=== PATIENT | female | born 1970 | race Caucasian/White ===

== ENCOUNTER 2017-09-04 12:52 | Observation (INO) | payer OTHER ==
--- NOTE | 2017-09-04 13:41 | ED PDOC ---
Arrival/HPI - General Chief Complaint: Breast Problem Time Seen by Provider: 09/04/17 13:00 Historian: Patient - History of Present Illness Narrative History of Present Illness (Text): 09/04/17 13:34 A 47 year old female, whose past medical history includes breast cancer 15 years ago, treated with mastectomy and chemo/RT and later breast reconstruction with implants, and chronic lymphedema, sent into the emergency department by Dr. Crisostomo for right arm discomfort and skin changes on the breast for the past few days. Patient reports she noticed abnormal skin changes to her right breast at the same time. As per Dr. 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 Patient denies any fever, chills, nausea , vomiting, abdominal pain, chest pain, shortness of breath or any other complaints. PMD: Dr. Ca Time/Duration: Other (few days) Symptom Course: Unchanged Quality: Other Context: Other Past Medical History - Provider Review Nursing Documentation Reviewed: Yes - Infectious Disease Hx of Infectious Diseases: None - Tetanus Immunization Tetanus Immunization: Unknown - Cardiac Hx Cardiac Disorders: No - Pulmonary Hx Respiratory Disorders: No - Neurological Hx Paralysis: No - HEENT Hx HEENT Disorder: No - Renal Hx Renal Disorder: No - Endocrine/Metabolic Hx Endocrine Disorders: Yes Hx Hypothyroidism: Yes - Hematological/Oncological Hx Blood Disorders: Yes Hx Anemia: Yes Hx Blood Transfusions: No Hx Blood Transfusion Reaction: No Hx Cancer: Yes (breast) - Integumentary Hx Dermatological Disorder: Yes (CELLULITIS TO RIGHT ARM) - Musculoskeletal/Rheumatological Hx Musculoskeletal Disorders: No - Gastrointestinal Hx Gastrointestinal Disorders: No - Genitourinary/Gynecological Hx Genitourinary Disorders: Yes (RIGHT BREAST MASTECTOMY WITH BREAST RECONSTRUCTION) - Psychiatric Hx Psychophysiologic Disorder: Yes Hx Depression: Yes Hx Emotional Abuse: No Hx Physical Abuse: No Hx Substance Use: No - Surgical History Hx Mastectomy: Yes - Anesthesia Hx Anesthesia Reactions: No Hx Malignant Hyperthermia: No - Suicidal Assessment Feels Threatened In Home Enviroment: No Family/Social History - Physician Review Nursing Documentation Reviewed: Yes Family/Social History: No Known Family HX Smoking Status: Never Smoked Hx Alcohol Use: No Hx Substance Use: No Hx Substance Use Treatment: No Allergies/Home Meds Allergies/Adverse Reactions: Allergies No Known Allergies Allergy (Verified 09/04/17 13:06) Home Medications: Home Meds Medication Instructions Recorded Confirmed Unobtainable 09/04/17 09/04/17 Review of Systems - Physician Review All systems were reviewed & negative as marked: Yes - Review of Systems Constitutional: absent: Fevers, Night Sweats Respiratory: absent: SOB Cardiovascular: absent: Chest Pain Gastrointestinal: absent: Abdominal Pain, Nausea, Vomiting Musculoskeletal: Other (right arm discomfort) Skin: Other (abnormal skin changes to right breast) Physical Exam Vital Signs Reviewed: Yes Vital Signs Temp Pulse Resp BP Pulse Ox 09/04/17 16:16 68 18 131/78 100 09/04/17 15:38 71 18 133/87 100 09/04/17 13:07 98.5 F 83 16 105/84 98 Temperature: Afebrile Blood Pressure: Normal Pulse: Regular Respiratory Rate: Normal Appearance: Positive for: Well-Appearing, Non-Toxic, Comfortable Pain Distress: None Mental Status: Positive for: Alert and Oriented X 3 - Systems Exam Head: Present: Atraumatic, Normocephalic Pupils: Present: PERRL Conjunctiva: Present: Normal Mouth: Present: Moist Mucous Membranes Pharnyx: Present: Normal. No: ERYTHEMA, EXUDATE Neck: Present: Normal Range of Motion Respiratory/Chest: Present: Clear to Auscultation, Good Air Exchange. No: Respiratory Distress, Accessory Muscle Use Cardiovascular: Present: Regular Rate and Rhythm, Normal S1, S2. No: Murmurs Abdomen: Present: Normal Bowel Sounds. No: Tenderness, Distention, Peritoneal Signs Breast/Axillary: Present: Other (2 ulcerations to lateral aspect of right breast near axilla with warmth and erythma and mild necrotic appearance) Upper Extremity: Present: Edema (Chronic lymphedema), Normal ROM, NORMAL PULSES , Neurovascularly Intact. No: Cyanosis, Tenderness, Temperature Abnormalties Lower Extremity: Present: Normal Inspection. No: Edema Neurological: Present: GCS=15, CN II-XII Intact, Speech Normal Skin: Present: Warm, Dry, Normal Color. No: Rashes Psychiatric: Present: Alert, Oriented x 3, Normal Insight, Normal Concentration Medical Decision Making ED Course and Treatment: 09/04/17 13:34 Impression: A 47 year old female sent by Dr. Crisostomo for right arm discomfort and abnormal skin changes to right breast after mastectomy and breast reconstruction. Plan: -- Right duplex upper extremity ultrasound -- Chest xray -- EKG -- Labs -- Blood and Urine culture -- Urinalysis -- Reassess and disposition Progress Notes: 09/04/17 16:50 Patient with noted history with changes on breast as described; concerning for cellulitis and deeper infectious process - will start iv antibiotics and obtain surgical consult (spoke with ); case was discussed with Dr. Borges regarding plan. Spoke with Dr. Ca who said to admit to the hospitalist. Spoke with Dr. Schwartz for hospitalist admission. - Lab Interpretations Lab Results: 09/04/17 14:10 09/04/17 14:10 Lab Results 09/04/17 14:55: Urine Color Yellow, Urine Appearance Clear, Urine pH 7.0, Ur Specific [place] 1.015, Urine Protein Negative, Urine Glucose (UA) Negative, Urine Ketones Negative, Urine Blood Moderate H, Urine Nitrate Negative, Urine Bilirubin Negative, Urine Urobilinogen 0.2, Ur Leukocyte Esterase Negative, Urine RBC 2 - 5, Urine WBC 0 - 2, Ur Epithelial Cells 0 - 2, Urine Bacteria Few 09/04/17 14:10: Sodium 141, Potassium 4.2, Chloride 105, Carbon Dioxide 27, Anion Gap 13, BUN 19, Creatinine 0.8, Est GFR ( Amer) > 60, Est GFR (Non- Af Amer) > 60, Random Glucose 75, Calcium 9.9, Phosphorus 4.8 H, Magnesium 1.7, Total Bilirubin 0.6, AST 31, ALT 40, Alkaline Phosphatase 74, Total Protein 7.8 , Albumin 4.2, Globulin 3.6, Albumin/Globulin Ratio 1.2, Lipase 96 09/04/17 14:10: PT 11.2, INR 1.03, APTT 27.3 09/04/17 14:10: WBC 4.9, RBC 4.15, Hgb 12.5, Hct 37.1, MCV 89.4, MCH 30.1, MCHC 33.7, RDW 14.8 H, Plt Count 221, MPV 9.2, Gran % 42.6 L, Lymph % (Auto) 46.5 H, [place] % (Auto) 9.9 H, Eos % (Auto) 1.0 L, Baso % (Auto) 0.0, Gran # 2.07, Lymph # 2.3, [place] # 0.5, Eos # 0.1, Baso # 0.00 - RAD Interpretation Radiology Orders: 09/04/17 13:55 CHEST TWO VIEWS (PA/LAT) [RAD] Stat DUPLEX UPPER EXTRM VEIN RIGHT [US] Stat - EKG Interpretation EKG Interpretation (Text): 09/04/17 16:53 NSR @ 70; no ST/T changes; normal intervals; normal axis. Interpreted by ED Physician: Yes Type: 12 lead EKG - Medication Orders Current Medication Orders: Vancomycin HCl 1 gm/ Sodium (Chloride) 250 mls @ 133.333 mls/hr IV STAT STA PRN Reason: Protocol Stop: 09/04/17 16:46 Last Admin: 09/04/17 16:10 Dose: 133.333 mls/hr eMAR Start Stop Document 09/04/17 16:10 SF (Rec: 09/04/17 16:26 [id number] Intravenous Solution Start Date 09/04/17 Start Time 16:10 End Date 09/04/17 End time 18:03 Total Infusion Time 113 Discontinued Medications Piperacillin Sod/Tazobactam Sod (Zosyn 3.375 In Ns 100ml) 100 mls @ 200 mls/hr IVPB STAT STA PRN Reason: Protocol Stop: 09/04/17 15:23 Last Admin: 09/04/17 15:38 Dose: 200 mls/hr eMAR Start Stop Document 09/04/17 15:38 SF (Rec: 09/04/17 15:38 SF [id number]) Intravenous Solution Start Date 09/04/17 Start Time 15:38 End Date 09/04/17 End time 16:08 Total Infusion Time 30 - Scribe Statement The provider has reviewed the documentation as recorded by the Scribe Gale Whitman Provider Scribe Attestation: All medical record entries made by the Scribe were at my direction and personally dictated by me. I have reviewed the chart and agree that the record accurately reflects my personal performance of the history, physical exam, medical decision making, and the department course for this patient. I have also personally directed, reviewed, and agree with the discharge instructions and disposition. Disposition/Present on Arrival - Present on Arrival Any Indicators Present on Arrival: No History of DVT/PE: No History of Uncontrolled Diabetes: No Urinary Catheter: No History of Decub. Ulcer: No History Surgical Site Infection Following: None - Disposition Have Diagnosis and Disposition been Completed?: Yes Diagnosis: Cellulitis Disposition: HOSPITALIZED Disposition Time: 15:35 Patient Plan: Admission Patient Problems: Current Active Problems Problem Status Onset Cellulitis Acute Condition: FAIR
[2017-09-04 14:53] LABS: EOS # 0.1 (0.0-0.7); GRAN # 2.07 (1.4-6.5); GRAN % 42.6 % (50.0-68.0); HEMATOCRIT 37.1 % (36.0-48.0); LYMPH # 2.3 (1.2-3.4); LYMPH % 46.5 % (22.0-35.0); MEAN CELL VOLUME 89.4 fl (80.0-105.0); MEAN CORPUSCULAR HEMOGLOBIN 30.1 pg (25.0-35.0); MEAN CORPUSCULAR HGB CONC 33.7 g/dl (31.0-37.0); MEAN PLATELET VOLUME 9.2 fl (7.0-11.0); MONO # 0.5 (0.1-0.6); MONO % 9.9 % (1.0-6.0); RED CELL DISTRIBUTION WIDTH 14.8 % (11.5-14.5); WHITE BLOOD COUNT 4.9 10^3/ul (4.5-11.0)
[2017-09-04] MEDS ORDERED: Piperacillin/Tazobact 3.375 gm 100 ML IVPB STA (14:54)
[2017-09-04 15:04] LABS: INR 1.03 (0.93-1.08); PARTIAL THROMBOPLASTIN TIME 27.3 Seconds (25.1-36.5)
[2017-09-04 15:19] LABS: URINE APPEARANCE CLEAR (CLEAR); URINE BILIRUBIN NEGATIVE (NEGATIVE); URINE BLOOD MODERATE (NEGATIVE); URINE COLOR YELLOW (YELLOW); URINE GLUCOSE (UA) NEGATIVE (NEGATIVE); URINE KETONE NEGATIVE (NEGATIVE); URINE LEUKOCYTE ESTERASE NEGATIVE Leu/uL (NEGATIVE); URINE PROTEIN NEGATIVE mg/dL (<30 mg/dL); URINE UROBILINOGEN 0.2 E.U./dL (<1 E.U./dL)
[2017-09-04 15:23] LABS: URINE BACTERIA FEW (NEG); URINE EPITHELIAL CELLS 0 - 2 /hpf (0-5); URINE WBC 0 - 2 /hpf (0-6)
[2017-09-04 15:25] LABS: ALB/GLOB RATIO 1.2 (1.1-1.8); ALKALINE PHOSPHATASE 74 U/L (38-126); ALT/SGPT 40 U/L (7-56); AST/SGOT 31 U/L (14-36); BILIRUBIN,TOTAL 0.6 mg/dL (0.2-1.3); BLOOD UREA NITROGEN 19 mg/dL (7-21); CALCIUM 9.9 mg/dL (8.4-10.5); CARBON DIOXIDE 27 mmol/L (21-33); CHLORIDE 105 mmol/L (98-107); GFR AFRICAN-AMERICAN > 60; GLUCOSE,RANDOM 75 mg/dL (70-110); LIPASE 96 U/L (23-300); MAGNESIUM 1.7 mg/dL (1.7-2.2); PHOSPHOROUS 4.8 mg/dL (2.5-4.5); POTASSIUM 4.2 mmol/L (3.6-5.0); SODIUM 141 mmol/L (132-148); TOTAL PROTEIN 7.8 g/dL (5.8-8.3)
--- NOTE | 2017-09-04 16:23 | US ---
PROCEDURE: Right upper extremity venous US CLINICAL HISTORY: Arm pain and swelling Evaluate for deep venous thrombosis. PHYSICIAN(S): Osmel Mcneal M.D FINDINGS: The visualized rightinternal jugular vein is sonographically normal and compressible. No evidence of obstruction or thrombus is seen. The visualized segments of the right subclavian vein are patent with normal waveforms. No sonographic evidence of obstruction or thrombosis is seen. The visualized deep venous system of the proximal right upper extremity is sonographically normal and compressible. IMPRESSION: 1. No sonographic evidence for deep venous thrombosis in the visualized segments of the right upper extremity.
--- NOTE | 2017-09-04 16:36 | RAD ---
HISTORY: h/o breast ca; R breast lesion COMPARISON: 07/01/2016 TECHNIQUE: Chest PA and lateral FINDINGS: LUNGS: No active pulmonary disease. PLEURA: No significant pleural effusion identified. No pneumothorax apparent. CARDIOVASCULAR: Normal. OSSEOUS STRUCTURES: Minimal thoracic spondylosis VISUALIZED UPPER ABDOMEN: Normal. OTHER FINDINGS: None. IMPRESSION: No interval cardiopulmonary pathology appreciated
--- NOTE | 2017-09-04 17:34 | CP.PCM.CON ---
History of Present Illness - History of Present Illness History of Present Illness: PGY1 General Surgery Consult Note for Dr. Lafleur Patient is a 47 year old female with a past medical history of breast cancer 15 years ago. Patient was treated with a mastectomy and chemo/RT. She has breast reconstruction surgery with implants in 2011, and now has chronic lymphedema of her right arm post reconstruction. Patient was instructed to come to the emergency department by Dr. Crisostomo due to skin changes located on her right breast. Patient started to notice pain and skin irritation on the lateral portion of her right breast two days ago. Patient reports mild discomfort of her right arm, but this was stated to be chronic as a result of her reconstruction surgery in 2011. As per ED documentation, the patient's breast cancer was Ductal Carcinoma grade T3N2M0 ER/IN negative, HER-2 negative. Patient denies any fevers, chills, nausea, vomiting, abdominal pain, chest pain , shortness of breath, weight loss, decreased appetite or night sweats. PMD: Dr. Ca Heme/Onc: Dr. Crisostomo PMH: Breast Cancer PSH: R Breast Mastectomy (2003), R Breast Reconstruction with implants (2012) Family: non-contributory Social: Denies alcohol, tobacco, illicit drug use Allergies: NKDA Review of Systems - Constitutional Constitutional: Fatigue (2 days). absent: Anorexia, Chills, Excessive Sweating , Fever, Headache, Night Sweats - EENT Eyes: absent: Change in Vision Nose/Mouth/Throat: absent: Nasal Congestion, Nasal Discharge - Breasts Breasts: Pain, Skin Changes (erythema). absent: Mass, Nipple Discharge - Cardiovascular Cardiovascular: absent: Chest Pain, Edema, Lightheadedness, Palpitations, Pedal Edema, Radiating Pain - Respiratory Respiratory: absent: Cough, Wheezing - Gastrointestinal Gastrointestinal: absent: Abdominal Pain, Constipation, Diarrhea, Nausea, Vomiting - Menstruation Additional comments: LMP: 2-3 months ago. Has not been having regular menses for approximately one year. - Musculoskeletal Musculoskeletal: As Per HPI. absent: Numbness, Stiffness, Tingling Additional comments: Chronic right arm lymphedema - Integumentary Integumentary: As Per HPI - Psychiatric Psychiatric: Depression (worried that her breast cancer has returned.) - Endocrine Endocrine: Fatigue. absent: Cold Intolorance, Excessive Sweating, Heat Intolorance, Palpitations, Polyphagia, Polyuria Past Patient History - Infectious Disease Hx of Infectious Diseases: None - Tetanus Immunizations Tetanus Immunization: Unknown - Past Social History Smoking Status: Never Smoked - CARDIAC Hx Cardiac Disorders: No - PULMONARY Hx Respiratory Disorders: No - NEUROLOGICAL Hx Paralysis: No - HEENT Hx HEENT Problems: No - RENAL Hx Chronic Kidney Disease: No - ENDOCRINE/METABOLIC Hx Endocrine Disorders: Yes Hx Hypothyroidism: Yes - HEMATOLOGICAL/ONCOLOGICAL Hx Blood Disorders: Yes Hx Anemia: Yes Hx Blood Transfusions: No Hx Blood Transfusion Reaction: No Hx Cancer: Yes (breast) - INTEGUMENTARY Hx Dermatological Problems: Yes (CELLULITIS TO RIGHT ARM) - MUSCULOSKELETAL/RHEUMATOLOGICAL Hx Musculoskeletal Disorders: No - GASTROINTESTINAL Hx Gastrointestinal Disorders: No - GENITOURINARY/GYNECOLOGICAL Hx Genitourinary Disorders: Yes (RIGHT BREAST MASTECTOMY WITH BREAST RECONSTRUCTION) - PSYCHIATRIC Hx Psychophysiologic Disorder: Yes Hx Depression: Yes Hx Emotional Abuse: No Hx Physical Abuse: No Hx Substance Use: No - SURGICAL HISTORY Hx Mastectomy: Yes - ANESTHESIA Hx Anesthesia Reactions: No Hx Malignant Hyperthermia: No Meds Allergies/Adverse Reactions: Allergies Allergy/AdvReac Type Severity Reaction Status Date / Time No Known Allergies Allergy Verified 09/04/17 13:06 Physical Exam - Constitutional Appears: No Acute Distress - Head Exam Head Exam: ATRAUMATIC, NORMOCEPHALIC - Eye Exam Eye Exam: Normal appearance. absent: Scleral icterus - ENT Exam ENT Exam: Mucous Membranes Moist - Neck Exam Neck exam: Positive for: Full Rom, Normal Inspection. Negative for: Meningismus , Tenderness - Respiratory Exam Respiratory Exam: Clear to Auscultation Bilateral, NORMAL BREATHING PATTERN. absent: Accessory Muscle Use, Rales, Wheezes, Respiratory Distress - Cardiovascular Exam Cardiovascular Exam: REGULAR RHYTHM, +S1, +S2 - GI/Abdominal Exam GI & Abdominal Exam: Normal Bowel Sounds, Soft. absent: Distended, Firm, Guarding, Rigid, Tenderness - Extremities Exam Extremities exam: Positive for: normal capillary refill, pedal pulses present. Negative for: calf tenderness, tenderness Additional comments: Right arm lymphedema (chronic) - Neurological Exam Neurological exam: Alert, CN II-XII Intact, Oriented x3 - Psychiatric Exam Psychiatric exam: Depressed (worried that her breast cancer has returned. ), Normal Affect - Skin Skin Exam: Dry, Warm Additional comments: Lateral portion of the right breast, inferior to the axilla - 2 ulcerations approximately 2.5cm x 1cm with eschar appearing centers and erythematous boarders. <0.5cm boarder of induration surrounding each lesion. No fluctuance or drainage apparent. Results - Vital Signs Recent Vital Signs: Last Vital Signs Temp 98.5 F 09/04/17 13:07 Pulse 68 09/04/17 16:16 Resp 18 09/04/17 16:16 BP 131/78 09/04/17 16:16 Pulse Ox 100 09/04/17 16:16 - Labs Result Diagrams: 09/04/17 14:10 09/04/17 14:10 Assessment & Plan - Assessment and Plan (Free Text) Assessment: 47 year old female with PMH of R breast cancer presenting with cellulitis of lateral aspect of right breast. Plan: - continue antibiotics - f/u blood cultures - medical management per primary - further recs per Dr. Lafleur Will discuss with Dr. Miquel Castellanos [place] PGY1
[2017-09-04] MEDS ORDERED: DiphenhydrAMINE 50 mg/ml Inj IVP STA (18:11)
[2017-09-04 19:36] VITALS: BMI 28.8
[2017-09-04] MEDS: Vancomycin 1gm in NS 250ml 1 GM/250 ML BAG IVPB SCH (20:34)
--- NOTE | 2017-09-04 20:57 | CP.PCM.HP ---
<Fred Tran - Last Filed: 09/04/17 21:14> History of Present Illness - History of Present Illness History of Present Illness: CC: Right arm discomfort and right breast skin change HPI: Patient is a 47 year old female with past medical history of breast cancer 15 years ago status post mastectomy and chemo/RT with later breast reconstruction with implants and chronic lymphedema of her right upper extremity who was sent to the emergency department by her heme/onc physician Dr. Crisostomo for right arm discomfort and right breast skin changes suspicious for cellulitis. Patient reports developing redness about 2 days prior to presentation. Patient denies fever, chills, discharge from the nipple or wound site. Patient denies any pain with palpation of the site. Patient denies numbness or loss of function in her left upper extremity. Patient denies chest pain, shortness of breath, abdominal discomfort, nausea, vomiting, or change in bowel. PMH: GI ulcers, RA, Hypothyroid, Iron deficiency anemia PSH: R Breast Mastectomy (2003), R Breast Reconstruction with implants (2012) SOChx: Tobacco: denies, ETOH: denies, ID: denies All: Vancomycin Meds: See JAN PMD: Dr. Ca Heme/Onc: Dr. Crisostomo Present on Admission - Present on Admission Any Indicators Present on Admission: No Review of Systems - Constitutional Constitutional: absent: Chills, Fever - EENT Eyes: absent: Blurred Vision, Change in Vision Ears: absent: Ear Discharge, Ear Pain Nose/Mouth/Throat: absent: Nasal Congestion, Nasal Discharge - Breasts Breasts: Pain, Skin Changes (erythema of right breast). absent: Nipple Discharge - Cardiovascular Cardiovascular: absent: Chest Pain, Chest Pain at Rest, Dyspnea - Respiratory Respiratory: absent: Cough, Dyspnea - Gastrointestinal Gastrointestinal: absent: Abdominal Pain, Bloating, Nausea, Vomiting - Genitourinary Genitourinary: absent: Difficulty Urinating, Dysuria - Menstruation Additional comments: LMP 2-3 months. Irregular menses reported for past year - Musculoskeletal Musculoskeletal: absent: Arthralgias, Numbness, Stiffness - Integumentary Additional comments: as per HPI - Psychiatric Psychiatric: absent: Anxiety, Depression - Endocrine Endocrine: absent: Flushing, Heat Intolorance, Palpitations - Hematologic/Lymphatic Hematologic: absent: Easy Bleeding, Easy Bruising Past Patient History - Infectious Disease Hx of Infectious Diseases: None - Tetanus Immunizations Tetanus Immunization: Unknown - Past Social History Smoking Status: Never Smoked Alcohol: None Drugs: Denies - CARDIAC Hx Cardiac Disorders: No Hx Angina: No Hx Cardia Arrhythmia: No Hx Circulatory Problems: No Hx Congestive Heart Failure: No Hx Heart Murmur: No Hx Heart Transplant: No Hx Hypercholesterolemia: No Hx Hypertension: No Hx Internal Defibrillator: No Hx Mitral Valve Prolapse: No Hx Pacemaker: No Hx Peripheral Edema: No Hx Peripheral Vascular Disease: No - PULMONARY Hx Respiratory Disorders: No Hx Asthma: No Hx Bronchitis: No Hx Chronic Obstructive Pulmonary Disease (COPD): No Hx Emphysema: No Hx Pneumonia: No Hx Respiratory Aspiration: No Hx Respiratory Tract Infection: No Hx Sleep Apnea: No Hx Tuberculosis: No - NEUROLOGICAL Hx Neurological Disorder: No Hx Alzheimer's Disease: No HX Cerebrovascular Accident: No Hx Dementia: No Hx Dizziness: No Hx Meningitis: No Hx Migraine: No Hx Parkinson's Disease: No Hx Seizures: No Hx Transient Ischemic Attacks (TIA): No - HEENT Hx HEENT Problems: No Hx Blind: No Hx Cataracts: No Hx Deafness: No Hx Difficulty Chewing: No Hx Epistaxis: No Hx Glaucoma: No Hx Macular Degeneration: No - RENAL Hx Chronic Kidney Disease: No Hx Dialysis: No Hx Kidney Stones: No Hx Neurogenic Bladder: No Hx Pyelonephritis: No Hx Renal (Kidney) Cancer: No Hx Renal Failure: No - ENDOCRINE/METABOLIC Hx Endocrine Disorders: No Hx Adrenal Cancer: No Hx Diabetes Insipidus: No Hx Diabetes Mellitus Type 1: No Hx Diabetes Mellitus Type 2: No Hx Hyperthyroidism: No Hx Hypothyroidism: No Hx Systemic Lupus Erythematosus: No - HEMATOLOGICAL/ONCOLOGICAL Hx Blood Disorders: No Hx AIDS: No Hx Anemia: No Hx Cancer: No Hx Chemotherapy: Yes Hx Cirrhosis: No Hx Hemophilia: No Hx Hepatitis A: No Hx Hepatitis B: No Hx Hepatitis C: No Hx Human Immunodeficiency Virus (HIV): No Hx Metastesis: No Hx Shingles: No Hx Sickle Cell Disease: No Hx Unexplained Bleeding: No - INTEGUMENTARY Hx Dermatological Problems: No Hx Basil Cell: No Hx Eczema: No Hx Melanoma: No Hx Psoriasis: No Hx Squamous Cell: No - MUSCULOSKELETAL/RHEUMATOLOGICAL Hx Musculoskeletal Disorders: No Hx Arthritis: Yes Hx Back Pain: No Hx Degenerative Joint Disease: No Hx Falls: No Hx Fractures: No Hx Gout: No Hx Herniated Disk: No Hx Myasthenia Gravis: No Hx Osteoarthritis: No Hx Osteomyelitis: No Hx Osteoporosis: No Hx Rhabdomyolysis: No Hx Spinal Stenosis: No Hx Unsteady Gait: No - GASTROINTESTINAL Hx Gastrointestinal Disorders: No Hx Colostomy: No Hx Crohn's Disease: No Hx Diverticulitis: No Hx Gall Bladder Disease: No Hx Gastroesophageal Reflux: No Hx Ileostomy: No Hx Liver Failure: No Hx Pancreatitis: No HX Swallowing Problems: No Hx Ulcer: No - GENITOURINARY/GYNECOLOGICAL Hx Genitourinary Disorders: No Hx Hematuria: No Hx Incontinence: No Hx Sexually Transmitted Disorders: No Hx Urinary Tract Infection: No - PSYCHIATRIC Hx Psychophysiologic Disorder: Yes Hx Anxiety: No Hx Bipolar Disorder: No Hx Depression: Yes Hx Emotional Abuse: No Hx Hallucinations: No Hx Panic Symptoms: No Hx Paranoia: No Hx Post Traumatic Stress Disorder: No Hx Psychosis: No Hx Physical Abuse: No Hx Schizophrenia: No Hx Sexual Abuse: No - SURGICAL HISTORY Hx Surgeries: Yes Hx Amputation: No Hx Appendectomy: No Hx Cardiac Catheterization: No Hx Cholecystectomy: No Hx Coronary Stent: No Hx Gastric Bypass Surgery: No Hx Hysterectomy: No Hx Joint Replacement: No Hx Kidney Transplant: No Hx Liver Transplant: Yes Hx Mastectomy: No Hx Musculoskeletal Surgery: No Hx Open Heart Surgery: No Hx Orthopedic Surgery: No Hx Splenectomy: No Hx Valve Replacement: No - ANESTHESIA Hx Anesthesia Reactions: No Hx Malignant Hyperthermia: No Meds Allergies/Adverse Reactions: Allergies Allergy/AdvReac Type Severity Reaction Status Date / Time vancomycin AdvReac Intermediate ITCHING Verified 09/04/17 18:28 Physical Exam - Constitutional Appears: Well, No Acute Distress - Head Exam Head Exam: ATRAUMATIC, NORMAL INSPECTION, NORMOCEPHALIC - Eye Exam Eye Exam: EOMI, PERRL - ENT Exam ENT Exam: Mucous Membranes Moist - Neck Exam Neck exam: Positive for: Full Rom, Normal Inspection - Respiratory Exam Respiratory Exam: Clear to Auscultation Bilateral, NORMAL BREATHING PATTERN - Cardiovascular Exam Cardiovascular Exam: REGULAR RHYTHM, +S1, +S2. absent: Systolic Murmur - GI/Abdominal Exam GI & Abdominal Exam: Normal Bowel Sounds, Soft - Extremities Exam Additional comments: right upper extremity with lymphedema, noted to be chronic - Back Exam Back exam: NORMAL INSPECTION - Neurological Exam Neurological exam: Alert, Normal Gait, Oriented x3 Additional comments: Motor and sensory grossly intact - Psychiatric Exam Psychiatric exam: Normal Affect, Normal Mood - Skin Additional comments: Lateral right breast with ulceration noted to be 1 inch by 2 cm with eschar center and erythematous borders, no significant induration, not warm to touch without discharge Results - Vital Signs Recent Vital Signs: Last Vital Signs Temp 98.4 F 09/04/17 18:58 Pulse 78 09/04/17 19:05 Resp 22 09/04/17 19:05 BP 112/80 09/04/17 19:05 Pulse Ox 99 09/04/17 18:57 - Labs Result Diagrams: 09/04/17 14:10 09/04/17 14:10 Assessment & Plan - Assessment and Plan (Free Text) Assessment: Patient is a 47 year old female with past medical history of breast cancer 15 years ago status post mastectomy and chemo/RT with later breast reconstruction with implants and chronic lymphedema of her right upper extremity who presents with new lesion of her right lateral breast suspicious for cellulitis Plan: 1. Suspected Cellulitis of Right breast - IV antibiotics with Vancomycin 1 gm IV Q12, Zosyn 3.375 mg Q6H - Blood culture, Wound culture - Procal - general surgery consult, appreciate recs - ID consult, appreciate recs 2. Hypothyroid - Continue home meds - Monitor TSH DVT/GI PPx - Protonix - Heparin Case and plan discussed with attending - Date & Time Date: 09/04/17 Time: 21:09 <Jasmine Schwartz - Last Filed: 09/05/17 17:42> Results - Vital Signs Recent Vital Signs: Last Vital Signs Temp 98 F 09/05/17 16:00 Pulse 56 L 09/05/17 16:00 Resp 20 09/05/17 16:00 BP 132/76 09/05/17 16:00 Pulse Ox 99 09/05/17 16:00 - Labs Result Diagrams: 09/04/17 14:10 09/05/17 06:41 Labs: Laboratory Results - last 24 hr 09/05/17 09/05/17 09/05/17 06:41 06:41 06:41 APTT 28.1 Sodium 144 Potassium 3.9 Chloride 108 H Carbon Dioxide 28 Anion Gap 12 BUN 16 Creatinine 0.8 Est GFR ( Amer) > 60 Est GFR (Non-Af Amer) > 60 Random Glucose 99 Calcium 9.0 Total Bilirubin 0.4 AST 27 ALT 38 Alkaline Phosphatase 63 Total Protein 6.5 Albumin 3.4 Globulin 3.1 Albumin/Globulin Ratio 1.1 Procalcitonin < 0.05 L TSH 3rd Generation 09/05/17 06:41 APTT Sodium Potassium Chloride Carbon Dioxide Anion Gap BUN Creatinine Est GFR ( Amer) Est GFR (Non-Af Amer) Random Glucose Calcium Total Bilirubin AST ALT Alkaline Phosphatase Total Protein Albumin Globulin Albumin/Globulin Ratio Procalcitonin TSH 3rd Generation 0.93 Attending/Attestation - Attestation I have personally seen and examined this patient.: Yes I have fully participated in the care of the patient.: Yes I have reviewed all pertinent clinical information: Yes Notes (Text): 09/05/17 17:41 Patient was seen and examined with medical doctor md. Agreed with resident assessment and plan. 47 year old female with PMH of R breast cancer presenting with cellulitis of lateral aspect of right breast, no evidence of abscess on physical examination. We will start on IV antibiotics and will follow up surgery and ID recommendation. Management plan was discussed in detail with patient Education was provided.
[2017-09-04] MEDS: Piperacillin/Tazobact 3.375 gm 100 ML IVPB SCH (21:00)
--- NOTE | 2017-09-04 23:38 | CON ---
DATE: 09/04/2017 This is [facility] consult on the medical floor. For Dr. Crisostomo. CHIEF COMPLAINT: Right breast axillary pain. HISTORY OF PRESENT ILLNESS: The patient is a 47-year-old female seen in Dr. Crisostomo's office earlier today with severe pain for approximately 2 days' duration to the right breast/axilla wiith the patient known to have had breast reconstruction with implants for cancer of the breast dated from 2003 in [place]. She had reconstruction with a TRAM flap in 2012 after evaluation here in the [place]. With this, the patient had chemotherapy in 2003, tamoxifen treatment 5 years. She is now admitted by the Emergency Room as per Dr. Crisostomo and Dr. Vang for evaluation of cellulitis that she has, 2 eschar type lesions to the right lateral breast as per Dr. Crisostomo with increased erythema and tenderness to palpation in that area. ALLERGIES: No known allergies, however, somebody has vancomycin as an allergy, we will clarify this as the patient is receiving vancomycin at present. MEDICATIONS: Her medications are from [place] and from [place] and she takes them as per Dr. Ca include BuSpar, iron tablet, Synthroid, folic acid, Prozac, Colace, Tylenol with medications including Daflon, Fluanxol, Folicron, Kemadrin, Salipax with an injection with a long-acting antipsychotic medication as per her family members. PAST MEDICAL HISTORY: Significant for breast cancer status post mastectomy with chemotherapy and radiation, also chronic lymphedema of the right upper extremity, depression, obesity, anemia and hypothyroidism. Treatment for cellulitis of the right arm in 2016, was referred to those records. FAMILY HISTORY AND SOCIAL HISTORY: Nonsmoker, nonethanolic. She lives with her and children taking medications from [place] and [place] as above. REVIEW OF SYSTEMS: A 12-point review of systems was done, essentially negative except as reported in the above HPI. PHYSICAL EXAMINATION VITAL SIGNS: Temperature was 98.4, pulse of 78, respirations 22, blood pressure 112/80, pulse oximetry 99%. HEENT: Unremarkable. GENERAL: She has a depressed affect. NECK: Supple. HEART: Regular rate. LUNGS: Clear. ABDOMEN: Soft, nontender. EXTREMITIES: +2 to 3 edema of the right upper extremity with again 2 eschar-type lesions to the right lateral breast as per Dr. Crisostomo. NEUROLOGIC: Awake and alert. SKIN: Warm and dry except as above. LABORATORY DATA: The patient had Doppler ultrasound of the right upper extremity, it was negative. The patient's labs were done. White blood cell count of 4.9, hemoglobin 12.5, hematocrit of 37.1 and platelet count 321,000. Chem metabolic panel within normal limits except for phosphorus of 4.8. INR of 1.03. Urine showed moderate amount of blood, otherwise negative. The patient had a chest x-ray done, it was read as no interval cardiopulmonary pathology appreciated. ASSESSMENT: Cellulitis versus implant necrosis, lymphedema of the right upper extremity, history of breast cancer, depression, breast cancer which was T3N2M0, ER/WA negative, HER2 negative ductal carcinoma; also hypothyroidism, history of anemia, obesity. PLAN: The plan for this patient after conversation with Dr. Crisostomo is to follow up as per Dr. Ca, continue present medical regimen with Tylenol or tramadol for pain. A consult with Dr. James, Infectious Disease bridal sales consultant; consult with surgical evaluation with mammogram and ultrasound of the breast bilateral. We will do a TSH in the morning and monitor the patient clinically and with labs. Prognosis for this patient is guarded. We will ask physiotherapy for treatment of his right upper extremity lymphedema and evaluation for lymphedema sleeve. Collin Borges MD
[2017-09-05] MEDS: Piperacillin/Tazobact 3.375 gm 100 ML IVPB SCH (02:00)
[2017-09-05 07:06] LABS: ALB/GLOB RATIO 1.1 (1.1-1.8); ALKALINE PHOSPHATASE 63 U/L (38-126); ALT/SGPT 38 U/L (7-56); AST/SGOT 27 U/L (14-36); BILIRUBIN,TOTAL 0.4 mg/dL (0.2-1.3); BLOOD UREA NITROGEN 16 mg/dL (7-21); CARBON DIOXIDE 28 mmol/L (21-33); CHLORIDE 108 mmol/L (98-107); GFR AFRICAN-AMERICAN > 60; GLUCOSE,RANDOM 99 mg/dL (70-110); POTASSIUM 3.9 mmol/L (3.6-5.0); SODIUM 144 mmol/L (132-148); TOTAL PROTEIN 6.5 g/dL (5.8-8.3)
--- NOTE | 2017-09-05 09:40 | CP.PCM.PN ---
Subjective - Date & Time of Evaluation Date of Evaluation: 09/05/17 Time of Evaluation: 09:37 - Subjective Subjective: Heme/Onc Progress Note for Charlene Cunningham PGY2 Patient seen and examined at bedside. As per nursing staff there were no acute overnight events. Upon examination, patient was resting comfortably in bed. She reports she has some mild pain in her R breast, but denies fever/chills, abdominal pain, numbness/tingling, nausea/vomiting/diarrhea, chest pain or shortness of breath. She does complain of some constipation. Objective - Vital Signs/Intake and Output Vital Signs (last 24 hours): Temp Pulse Resp BP Pulse Ox 98.0 F 72 20 105/58 L 95 09/05/17 07:30 09/05/17 07:30 09/05/17 07:30 09/05/17 07:30 09/05/17 07:30 Intake and Output: 09/05/17 09/05/17 06:59 18:59 Intake Total 240 Output Total 1 Balance 239 - Medications Medications: Current Medications Acetaminophen (Tylenol 325mg Tab) 650 mg PO Q6H PRN PRN Reason: Fever >100.4 F Amantadine HCl (Amantadine 100 Mg Cap) 100 mg PO DAILY DAT Buspirone HCl (Buspar) 10 mg PO DAILY DAT PRN Reason: Protocol Calcium Carbonate (Caltrate) 600 mg PO DAILY DAT Famotidine (Pepcid) 20 mg PO BID DAT Last Admin: 09/04/17 18:20 Dose: 20 mg Fluoxetine HCl (Prozac) 40 mg PO DAILY DAT Folic Acid (Folic Acid) 1 mg PO DAILY DAT Vancomycin HCl (Vancomycin 1gm) 1 gm in 250 mls @ 167 mls/hr IVPB Q12H DAT PRN Reason: Protocol Last Admin: 09/04/17 20:34 Dose: Not Given Piperacillin Sod/Tazobactam Sod (Zosyn 3.375 In Ns 100ml) 100 mls @ 200 mls/hr IVPB Q6 DAT PRN Reason: Protocol Stop: 09/14/17 12:01 Levothyroxine Sodium (Synthroid) 150 mcg PO 0600 DAT Polyethylene Glycol (Miralax) 17 gm PO DAILY DAT Polysaccharide Iron Complex (Ferrex-150) 150 mg PO DAILY DAT Tramadol HCl (Ultram) 50 mg PO TID PRN PRN Reason: Pain, moderate (4-7) - Labs Labs: 09/05/17 06:41 PT 11.2 SECONDS (9.4-12.5) 09/04/17 14:10 INR 1.03 (0.93-1.08) 09/04/17 14:10 APTT 28.1 Seconds (25.1-36.5) 09/05/17 06:41 - Constitutional Appears: No Acute Distress - Head Exam Head Exam: ATRAUMATIC, NORMAL INSPECTION, NORMOCEPHALIC - Eye Exam Eye Exam: Normal appearance, PERRL Pupil Exam: NORMAL ACCOMODATION, PERRL - ENT Exam ENT Exam: Mucous Membranes Moist - Respiratory Exam Respiratory Exam: Clear to Ausculation Bilateral, NORMAL BREATHING PATTERN. absent: Rales, Rhonchi, Wheezes - Cardiovascular Exam Cardiovascular Exam: REGULAR RHYTHM, +S1, +S2. absent: Gallop, Rubs, Murmur - GI/Abdominal Exam GI & Abdominal Exam: Soft, Normal Bowel Sounds. absent: Rigid, Tenderness, Mass , Rebound - Extremities Exam Extremities Exam: Normal Inspection. absent: Calf Tenderness, Pedal Edema - Neurological Exam Neurological Exam: Alert, Awake, CN II-XII Intact, Oriented x3 - Psychiatric Exam Psychiatric exam: Normal Affect, Normal Mood - Skin Skin Exam: Warm Additional comments: on R lateral breast, 2 lesions (1x2cm and 1x0.5 cm with mild surrounding erythema and eschar) warm to touch- no drainage. Assessment and Plan - Assessment and Plan (Free Text) Assessment: This is a 47yo female with past medical history of anemia, hypothyroidism, depression/anxiety, breast ductal carcinoma (ND/ER/Her-2 neg) T3N2M0 s/p mastectomy and reconstruction who was admitted for lesions on her R breast. These lesions can be cellulitis versus pressure ulcer versus necrosis. Lesion is most likely pressure ulcer from the increase size in the side of the R breast implant that presses on her arm. Plan: - ID Consulted- Pt on Zosyn and has allergy to vancomycin - Surgery Consulted - will speak to Dr. Lafleur about recommendations about guidelines and if patient will need evaluation by plastic surgeon. - Patient has poor follow up - Spoke with surgery who said patient may be able to follow up with Dr. Zimmerman in [place] who may be able to see the patient due to insurance issues for possible reconstruction of the breast - Continue Miralax for constipation - Continue pain control - Patient will follow up with Dr. Crisostomo in his office upon discharge Case seen, discussed and reviewed with Dr. Crisostomo. Charlene Buckner PGY2.
[2017-09-05] MEDS: POLYETHYLENE GLYCOL 3350 17 GM/Dose PACKET PO SCH (10:12)
[2017-09-05] MEDS: Iron Complex Polysacch 150mg Cap PO SCH (10:12)
[2017-09-05] MEDS: Levothyroxine 150 MCG TAB PO SCH (10:18)
[2017-09-05] MEDS: Vancomycin 1gm in NS 250ml 1 GM/250 ML BAG IVPB SCH (10:19)
[2017-09-05] MEDS ORDERED: Ceftaroline 600 MG in Sodium Chloride 0.9% 100 ML IVPB SCH (11:21)
--- NOTE | 2017-09-05 11:38 | CP.PCM.PN ---
Subjective - Date & Time of Evaluation Date of Evaluation: 09/05/17 Time of Evaluation: 11:34 - Subjective Subjective: General Surgery Progress Note for Dr. Lafleur This patient was seen and examined this AM at bedside. No acute events overnight. Patient reports no change in her pain on her breast lesion. No fevers , chills, chest pain SOB nausea vomiting or diarrhea. Objective - Vital Signs/Intake and Output Vital Signs (last 24 hours): Temp Pulse Resp BP Pulse Ox 98.0 F 72 20 105/58 L 95 09/05/17 07:30 09/05/17 07:30 09/05/17 07:30 09/05/17 07:30 09/05/17 07:30 Intake and Output: 09/05/17 09/05/17 06:59 18:59 Intake Total 240 Output Total 1 Balance 239 - Medications Medications: Current Medications Acetaminophen (Tylenol 325mg Tab) 650 mg PO Q6H PRN PRN Reason: Fever >100.4 F Amantadine HCl (Amantadine 100 Mg Cap) 100 mg PO DAILY [facility] Last Admin: 09/05/17 10:12 Dose: 100 mg Buspirone HCl (Buspar) 10 mg PO DAILY [facility] PRN Reason: Protocol Last Admin: 09/05/17 10:12 Dose: 10 mg Calcium Carbonate (Caltrate) 600 mg PO DAILY [facility] Last Admin: 09/05/17 10:12 Dose: 600 mg Famotidine (Pepcid) 20 mg PO BID DAT Last Admin: 09/05/17 10:12 Dose: 20 mg Fluoxetine HCl (Prozac) 40 mg PO DAILY DAT Last Admin: 09/05/17 10:12 Dose: 40 mg Folic Acid (Folic Acid) 1 mg PO DAILY [facility] Last Admin: 09/05/17 10:12 Dose: 1 mg Ceftaroline Fosamil 600 mg/ (Sodium Chloride) 100 mls @ 100 mls/hr IVPB Q12 DAT PRN Reason: Protocol Stop: 09/14/17 11:22 Levothyroxine Sodium (Synthroid) 150 mcg PO 0600 DAT Last Admin: 09/05/17 10:18 Dose: 150 mcg Polyethylene Glycol (Miralax) 17 gm PO DAILY DAT Last Admin: 09/05/17 10:12 Dose: 17 gm Polysaccharide Iron Complex (Ferrex-150) 150 mg PO DAILY DAT Last Admin: 09/05/17 10:12 Dose: 150 mg Tramadol HCl (Ultram) 50 mg PO TID PRN PRN Reason: Pain, moderate (4-7) - Labs Labs: 09/05/17 06:41 PT 11.2 SECONDS (9.4-12.5) 09/04/17 14:10 INR 1.03 (0.93-1.08) 09/04/17 14:10 APTT 28.1 Seconds (25.1-36.5) 09/05/17 06:41 - Constitutional Appears: Non-toxic, No Acute Distress - Head Exam Head Exam: ATRAUMATIC, NORMOCEPHALIC - Eye Exam Eye Exam: EOMI, Normal appearance - Respiratory Exam Respiratory Exam: NORMAL BREATHING PATTERN - Cardiovascular Exam Cardiovascular Exam: REGULAR RHYTHM - GI/Abdominal Exam GI & Abdominal Exam: Soft - Neurological Exam Neurological Exam: Alert, Awake - Psychiatric Exam Psychiatric exam: Normal Affect, Normal Mood - Skin Skin Exam: Dry, Intact - Additional Findings Additional findings: Right lateral breast with pressure ulcer that is dry Assessment and Plan - Assessment and Plan (Free Text) Assessment: This is a 47F with a [facility] breast CA s/p mastectomy with reconstruction presenting with a lateral breast pressure ulcer. No surgical management at this time Recommend sylvadine application for wound Clear for discharge Will discuss with Dr. Miquel Monson [phone]
[2017-09-05] MEDS ORDERED: Piperacillin/Tazobact 3.375 gm 100 ML IVPB SCH (12:00)
--- NOTE | 2017-09-05 12:46 | CON ---
DATE: 09/05/2017 LOCATION: The patient seen in 571, bed 1. CHIEF COMPLAINT: Breast lesions in the right arm, erythema, times several days. HISTORY OF PRESENT ILLNESS: This is a 47-year-old female with obesity, history of breast cancer, depression, right breast surgery, chronic lymphedema, history of a mastectomy in 2003, history of reconstruction with implant placement in 2012, who is ALLERGIC TO VANCOMYCIN, who is admitted now with a right arm erythema. The patient denies any fevers, any chills. No nausea or vomiting. No chest pain. PAST MEDICAL HISTORY: Significant for obesity, breast cancer, depression, and chronic lymphedema of the right arm. PAST SURGICAL HISTORY: Mastectomy in 2003 and reconstruction with implant placement 2012. THE PATIENT IS ALLERGIC TO VANCOMYCIN. She developed a rash apparently in the emergency room. MEDICATIONS AT HOME: Not available. PHYSICAL EXAMINATION: GENERAL: The patient is in bed, no acute distress. VITAL SIGNS: Temperature of 98, blood pressure is 112/80, respiratory rate of 22, heart rate of 80. HEENT: Unremarkable. NECK: Supple. LUNGS: Have decreased breath sounds. HEART: Normal S1, S2. ABDOMEN: Soft, nontender. No rebound or guarding. EXTREMITIES: Examination of the arm, there is mild erythema, more edema. She has two ulcers on her breast, chronic appearing ulcers, etiology of which is not entirely clear. No discharge. No erythema around the breast. LABORATORY EXAMINATION: Reveals a white count of 4.9, hemoglobin of 12, platelets of 221. Chemistries reveal a BUN of 16, creatinine of 0.8. Urinalysis is noted and microbiology is pending. ASSESSMENT/PLAN: This is a 47-year-old [place] female originally from [place], has not been back pain [place] for past 3 years with a history of breast cancer and chronic lymphedema and reconstruction with implant placement, now presenting with mild right arm cellulitis. The patient has two breast ulcers but has developed VANCOMYCIN ALLERGY in a patient who is on Prozac for depression. We will treat the patient for her right arm cellulitis and two breast ulcers with Teflaro since being unable to use vancomycin and unable to use Zyvox. May need a biopsy of the two ulcers and would recommend sending for AFB smears and cultures, fungal smears and cultures in addition to routine Gram stain and cultures and pathology. Etiology of the two ulcers on her breast is not entirely clear. We will start with antibacterial therapy and may need a biopsy. We will follow with you. Scotty James MD
--- NOTE | 2017-09-05 13:59 | US ---
HISTORY: Cellulitis. TECHNIQUE: Targeted high-resolution ultrasound of the reconstructed right breast was performed. FINDINGS: RIGHT BREAST: Post tram reconstruction. No evidence of drainable fluid collection or abscess. IMPRESSION: No sonographic abnormality in the reconstructed right breast. Specifically, no evidence of drainable fluid collection or abscess.
--- NOTE | 2017-09-05 16:15 | CP.PCM.PN ---
<MarcFred - Last Filed: 09/05/17 16:12> Subjective - Date & Time of Evaluation Date of Evaluation: 09/05/17 Time of Evaluation: 16:12 - Subjective Subjective: Patient seen and examined on [facility]. Patient reports feeling better this AM. She continues to deny pain around her ulcers located on lateral right breast. Patient denies fever, chills, nausea, vomiting. Objective - Vital Signs/Intake and Output Vital Signs (last 24 hours): Temp Pulse Resp BP Pulse Ox 98.0 F 72 20 105/58 L 95 09/05/17 07:30 09/05/17 07:30 09/05/17 07:30 09/05/17 07:30 09/05/17 07:30 Intake and Output: 09/05/17 09/05/17 06:59 18:59 Intake Total 240 Output Total 1 Balance 239 - Medications Medications: Current Medications Acetaminophen (Tylenol 325mg Tab) 650 mg PO Q6H PRN PRN Reason: Fever >100.4 F Amantadine HCl (Amantadine 100 Mg Cap) 100 mg PO DAILY [facility] Last Admin: 09/05/17 10:12 Dose: 100 mg Benztropine Mesylate (Cogentin) 1 mg PO DAILY [facility] Calcium Carbonate (Caltrate) 600 mg PO DAILY [facility] Last Admin: 09/05/17 10:12 Dose: 600 mg Divalproex Sodium (Depakote Dr (*Bid*)) 250 mg PO BID [facility] Famotidine (Pepcid) 20 mg PO BID [facility] Last Admin: 09/05/17 10:12 Dose: 20 mg Fluoxetine HCl (Prozac) 20 mg PO DAILY [facility] Folic Acid (Folic Acid) 1 mg PO DAILY [facility] Last Admin: 09/05/17 10:12 Dose: 1 mg Ceftaroline Fosamil 600 mg/ (Sodium Chloride) 100 mls @ 100 mls/hr IVPB Q12 [facility] PRN Reason: Protocol Stop: 09/14/17 11:22 Last Admin: 09/05/17 12:41 Dose: 100 mls/hr Levothyroxine Sodium (Synthroid) 150 mcg PO 0600 [facility] Last Admin: 09/05/17 10:18 Dose: 150 mcg Polyethylene Glycol (Miralax) 17 gm PO DAILY [facility] Last Admin: 09/05/17 10:12 Dose: 17 gm Polysaccharide Iron Complex (Ferrex-150) 150 mg PO DAILY [facility] Last Admin: 09/05/17 10:12 Dose: 150 mg Risperidone (Risperdal Tab) 2 mg PO DAILY DAT PRN Reason: Protocol Risperidone (Risperdal Tab) 4 mg PO HS DAT PRN Reason: Protocol Tramadol HCl (Ultram) 50 mg PO TID PRN PRN Reason: Pain, moderate (4-7) Zolpidem Tartrate (Ambien) 5 mg PO HS PRN; Protocol PRN Reason: Insomnia - Labs Labs: 09/05/17 06:41 PT 11.2 SECONDS (9.4-12.5) 09/04/17 14:10 INR 1.03 (0.93-1.08) 09/04/17 14:10 APTT 28.1 Seconds (25.1-36.5) 09/05/17 06:41 - Head Exam Head Exam: ATRAUMATIC, NORMAL INSPECTION, NORMOCEPHALIC - Eye Exam Eye Exam: EOMI, PERRL Pupil Exam: PERRL - ENT Exam ENT Exam: Mucous Membranes Moist - Neck Exam Neck Exam: Full ROM - Respiratory Exam Respiratory Exam: Clear to Ausculation Bilateral, NORMAL BREATHING PATTERN - Cardiovascular Exam Cardiovascular Exam: REGULAR RHYTHM, +S1, +S2. absent: Murmur - GI/Abdominal Exam GI & Abdominal Exam: Soft, Normal Bowel Sounds. absent: Guarding, Tenderness - Extremities Exam Extremities Exam: Full ROM, Normal Inspection - Back Exam Back Exam: NORMAL INSPECTION - Neurological Exam Neurological Exam: Alert, Awake, CN II-XII Intact, Normal Gait, Oriented x3 - Psychiatric Exam Psychiatric exam: Depressed - Skin Skin Exam: Dry, Normal Color Additional comments: Lateral right breast with ulceration noted to be 1 inch by 2 cm with eschar center and erythematous borders, no significant induration, not warm to touch without discharge Assessment and Plan - Assessment and Plan (Free Text) Assessment: Patient is a 47 year old female with past medical history of breast cancer 15 years ago status post mastectomy and chemo/RT with later breast reconstruction with implants and chronic lymphedema of her right upper extremity who presents with new lesion of her right lateral breast suspicious for cellulitis. Patient evaluated by General surgery today and ulcers suspected to be secondary to pressure ulcers. Plan: 1. Ulcers of Right breast - IV antibiotics with Zosyn - Blood culture, Wound culture - US of right breast: No sonographic abnormality in the reconstructed right breast, specifically, no evidence of drainable fluid collection or abscess - General surgery consult, appreciate recs - No surgery at this time - Optifoam dressing with santyl - ID consult, appreciate recs - Teflaro - May need a biopsy - AFB smears and culutres, fungal smears and cultures - Gram stain and culture pending - May need biopsy 2. Hypothyroid - Continue home meds - Monitor TSH DVT/GI PPx - Protonix - Heparin Case and plan discussed with attending <Jasmine Schwartz - Last Filed: 09/05/17 17:43> Objective - Vital Signs/Intake and Output Vital Signs (last 24 hours): Temp Pulse Resp BP Pulse Ox 98 F 56 L 20 132/76 99 09/05/17 16:00 09/05/17 16:00 09/05/17 16:00 09/05/17 16:00 09/05/17 16:00 Intake and Output: 09/05/17 09/05/17 06:59 18:59 Intake Total 240 Output Total 1 Balance 239 - Medications Medications: Current Medications Acetaminophen (Tylenol 325mg Tab) 650 mg PO Q6H PRN PRN Reason: Fever >100.4 F Amantadine HCl (Amantadine 100 Mg Cap) 100 mg PO DAILY [facility] Last Admin: 09/05/17 10:12 Dose: 100 mg Benztropine Mesylate (Cogentin) 1 mg PO DAILY [facility] Calcium Carbonate (Caltrate) 600 mg PO DAILY [facility] Last Admin: 09/05/17 10:12 Dose: 600 mg Divalproex Sodium (Depakote Dr (*Bid*)) 250 mg PO BID [facility] Last Admin: 09/05/17 17:13 Dose: 250 mg Famotidine (Pepcid) 20 mg PO BID [facility] Last Admin: 09/05/17 17:13 Dose: 20 mg Fluoxetine HCl (Prozac) 20 mg PO DAILY [facility] Folic Acid (Folic Acid) 1 mg PO DAILY [facility] Last Admin: 09/05/17 10:12 Dose: 1 mg Ceftaroline Fosamil 600 mg/ (Sodium Chloride) 100 mls @ 100 mls/hr IVPB Q12 [facility] PRN Reason: Protocol Stop: 09/14/17 11:22 Last Admin: 09/05/17 12:41 Dose: 100 mls/hr Levothyroxine Sodium (Synthroid) 150 mcg PO 0600 [facility] Last Admin: 09/05/17 10:18 Dose: 150 mcg Polyethylene Glycol (Miralax) 17 gm PO DAILY [facility] Last Admin: 09/05/17 10:12 Dose: 17 gm Polysaccharide Iron Complex (Ferrex-150) 150 mg PO DAILY [facility] Last Admin: 09/05/17 10:12 Dose: 150 mg Risperidone (Risperdal Tab) 2 mg PO DAILY DAT PRN Reason: Protocol Risperidone (Risperdal Tab) 4 mg PO HS DAT PRN Reason: Protocol Silver Sulfadiazine (Silvadene 1% 25 Gm) 0 gm TP BID DAT Tramadol HCl (Ultram) 50 mg PO TID PRN PRN Reason: Pain, moderate (4-7) Zolpidem Tartrate (Ambien) 5 mg PO HS PRN; Protocol PRN Reason: Insomnia - Labs Labs: 09/05/17 06:41 PT 11.2 SECONDS (9.4-12.5) 09/04/17 14:10 INR 1.03 (0.93-1.08) 09/04/17 14:10 APTT 28.1 Seconds (25.1-36.5) 09/05/17 06:41 Attending/Attestation - Attestation I have personally seen and examined this patient.: Yes I have fully participated in the care of the patient.: Yes I have reviewed all pertinent clinical information, including history, physical exam and plan: Yes Notes (Text): 09/05/17 17:43 Patient was seen and examined with biomedical equipment technician. Agreed with resident assessment and plan. Management plan was discussed in detail with patient Education was provided.
[2017-09-05] MEDS: Divalproex 250 mg DR (BID formulation) PO SCH (17:13)
--- NOTE | 2017-09-05 18:09 | CON ---
HISTORY OF PRESENT ILLNESS: The patient is 47-year-old [place] female with reported history of mental illness. The patient was admitted on the medical side for evaluation of breast lesion. The patient has history of breast cancer. Psych consult was called for evaluation of mood symptoms as well as medication management. The patient was seen and examined. The patient presented to be depressed. The patient did not want to talk much. The patient's family is next to her, the patient's as well as the patient's daughter. The patient gave consent to speak to the patient's Bhavin. As per Bhavin, the patient was functioning at her baseline. The patient's reported that she was not depressed. At present moment, she is doing much better. The patient's reported that she is seeing psychiatrist at [facility] and last appointment was a month ago. Usually, the patient is seeing her psychiatrist on monthly basis and therapist on weekly basis. The patient was not depressed recently. The patient did not express any thoughts of killing herself or others. The patient's provided with the medication list for the patient. The patient is on Cogentin 1 mg p.o. daily, Depakote DR 250 mg twice a day, Risperdal 10 mg at the morning time and Risperdal 4 mg at the nighttime, trazodone 50 mg at the nighttime as well as Haldol 2 mg a day. The patient reported that she tolerates medications well. The patient denied any side effects from the medication. This screen writer reviewed previous history. The patient was seen by Dr. Holland in 2015. The patient had history of mental illness. The patient is from [place] and was on some medication which was injectable which was given to her in the [place]. The screen writer reviewed vital signs. Vital signs seems to be stable. MEDICATIONS: Reviewed. The patient is on amantadine, BuSpar also Prozac 40 mg daily, Ultram and this is not medication what the patient is taking. Note from the IV team also reviewed. MENTAL STATUS EXAM: The patient presented to be with a flat affect, intermittent eye contact. Speech was under productive. Thought process seems to be goal directed but concrete. Mood described, I am fine. Affect was constricted. Thought content, the patient denied visual, auditory or tactile hallucinations. Denied paranoid ideation. The patient denied thoughts of harming self or others. Denied intent or plan. Insight and judgment seems to be fair. Impulses are well controlled. IMPRESSION: As per history, the patient most likely has schizophrenia spectrum disorder, rule out mood disorder, rule out bipolar disorder. PLAN: Medications were confirmed. Last time, the patient filled the medication was in July. We will resume all of the medications, Risperdal as well as Depakote as well as haloperidol. We will follow up and advise accordingly. Thank you very much for letting me participate in care of your patient. Should you have any questions give me a call back. Thank you so much. Carolyn Ross MD
[2017-09-05] MEDS: Silver Sulfadiazine 1% Cream (25 gm) TP SCH (18:23)
--- NOTE | 2017-09-05 20:42 | CARD ---
APPROVED REPORT EKG Measurement Heart [id number] <Conclusion> Normal sinus rhythm Low voltage QRS Septal infarct, age undetermined Abnormal ECG
[2017-09-06] MEDS: Levothyroxine 150 MCG TAB PO SCH (06:19)
[2017-09-06 07:34] LABS: EOS # 0.1 (0.0-0.7); EOS % 2.3 % (1.5-5.0); GRAN # 1.32 (1.4-6.5); GRAN % 33.2 % (50.0-68.0); HEMATOCRIT 35.8 % (36.0-48.0); LYMPH % 49.6 % (22.0-35.0); MEAN CELL VOLUME 89.7 fl (80.0-105.0); MEAN CORPUSCULAR HEMOGLOBIN 29.3 pg (25.0-35.0); MEAN CORPUSCULAR HGB CONC 32.7 g/dl (31.0-37.0); MEAN PLATELET VOLUME 9.5 fl (7.0-11.0); MONO # 0.6 (0.1-0.6); MONO % 14.9 % (1.0-6.0); RED CELL DISTRIBUTION WIDTH 14.8 % (11.5-14.5)
[2017-09-06 07:35] VITALS: BP 120/70; PULSE 73; RESP 18; TEMP 98.3; O2SAT 97
[2017-09-06 07:50] LABS: ALB/GLOB RATIO 1.1 (1.1-1.8); ALKALINE PHOSPHATASE 61 U/L (38-126); ALT/SGPT 28 U/L (7-56); AST/SGOT 25 U/L (14-36); BILIRUBIN,TOTAL 0.4 mg/dL (0.2-1.3); BLOOD UREA NITROGEN 16 mg/dL (7-21); CALCIUM 9.1 mg/dL (8.4-10.5); CARBON DIOXIDE 28 mmol/L (21-33); CHLORIDE 106 mmol/L (98-107); GFR AFRICAN-AMERICAN > 60; GLUCOSE,RANDOM 93 mg/dL (70-110); POTASSIUM 3.7 mmol/L (3.6-5.0); SODIUM 142 mmol/L (132-148); TOTAL PROTEIN 6.6 g/dL (5.8-8.3)
--- NOTE | 2017-09-06 11:00 | CP.PCM.PCO ---
Addendum Addendum: 09/06/17 10:59 discussed with , pt needs to have repeated CBC within 48-72hrs. pt has PMD, oncologist, psychiatrist pt is not in imminent danger to self or others pt does not want to stay in psych unit pt does not meet criteria for [facility] screening initiation pt denied thoughts of harming self or others pt has f/u appt with psychiatrist next month pt has all meds home
--- NOTE | 2017-09-06 11:17 | PN ---
SUBJECTIVE: The patient was followed up today. The patient presented to be depressed. The patient was interviewed with the help of translation of staff. The patient said that she has a lot of thoughts going on in her mind. Sometimes, she feels angry towards the people whom she does not even know. She does not have episodes of being aggressive in the community or being agitated. The patient said that she wants to continue her current medications, and the patient denied any side effects. This policy writer typist is concerned about the patient's flat affect, and the patient at times appears to be tearful, but the patient denied thoughts of harming herself or others. Denied intent or plan. This policy writer typist offered either to continue Prozac or start Effexor. The patient does not want to be on Prozac or Effexor. The patient wants to be followed up with her outpatient psychiatrist at [facility], and she want to continue her current medications. The patient also wanted to speak to the patient's in order to make decisions about medication. This policy writer typist met with the patient's as well as with the patient. The patient and her wants to continue all of the medication as it is now and followup with her outpatient psychiatrist. We will respect that decision. Based on the labs, the patient has low WBC cells today, and today is 4.0 and granulocytes are 1.32. We will need to repeat the lab work in order to make sure that the patient will not have a drop of granulocytes, and this policy writer typist held haloperidol at the nighttime. MENTAL STATUS EXAMINATION: The patient appears to be alert, tearful, intermittent eye contact. Speech was under productive, low volume. Mood described at times I feel angry. Thought process seems to be goal directed and coherent. Thought content, the patient denied visual, auditory, or tactile hallucinations. Denied paranoid ideation. The patient denied thoughts of harming herself or others. Denied intents or plan. Insight and judgment are fair. Impulses are well controlled. IMPRESSION: As per history, the patient has major depressive disorder versus schizoaffective disorder. The patient has multiple hospitalizations in the past. Most recent was 2 months ago at [facility]. Collaterals were obtained from the patient's , and the patient's said that at present moment the patient presented much better than she was before. PLAN: This policy writer typist will order CBC with differential for tomorrow to make sure that granulocyte within normal limits. Dr. Olmedo will follow up on this patient tomorrow at the morning time, but most likely we will sign off from this case. The patient has followup appointment with her outpatient psychiatrist. The patient has enough medication at home, and the patient does not want to make any changes with the medication. The patient is not in any imminent danger to self or others, but might benefit from adjustment of the medication, but it is up to the patient. Thank you very much for letting me participate in care of your patient. Should you have any questions give me a call back. Carolyn Ross MD
--- NOTE | 2017-09-06 11:32 | CP.PCM.PN ---
Subjective - Date & Time of Evaluation Date of Evaluation: 09/06/17 Time of Evaluation: 11:27 - Subjective Subjective: Heme/Onc Progress Note for Charlene Cunningham PGY2 Patient seen and examined at bedside. There were no acute overnight events as per nursing. Patient reports having some pain in her R upper breast region. She denies chest pain, shortness of breath, fever/chills, dysuria, hemtauria, nausea , vomiting or diarrhea. Objective - Vital Signs/Intake and Output Vital Signs (last 24 hours): Temp Pulse Resp BP Pulse Ox 98.3 F 73 18 120/70 97 09/06/17 07:30 09/06/17 07:30 09/06/17 07:30 09/06/17 07:30 09/06/17 07:30 Intake and Output: 09/06/17 09/06/17 06:59 18:59 Intake Total 240 Output Total 0 Balance 240 - Medications Medications: Current Medications Acetaminophen (Tylenol 325mg Tab) 650 mg PO Q6H PRN PRN Reason: Fever >100.4 F Amantadine HCl (Amantadine 100 Mg Cap) 100 mg PO DAILY [facility] Last Admin: 09/05/17 10:12 Dose: 100 mg Benztropine Mesylate (Cogentin) 1 mg PO DAILY [facility] Calcium Carbonate (Caltrate) 600 mg PO DAILY [facility] Last Admin: 09/05/17 10:12 Dose: 600 mg Divalproex Sodium (Depakote Dr (*Bid*)) 250 mg PO BID [facility] Last Admin: 09/05/17 17:13 Dose: 250 mg Famotidine (Pepcid) 20 mg PO BID [facility] Last Admin: 09/05/17 17:13 Dose: 20 mg Folic Acid (Folic Acid) 1 mg PO DAILY [facility] Last Admin: 09/05/17 10:12 Dose: 1 mg Ceftaroline Fosamil 600 mg/ (Sodium Chloride) 100 mls @ 100 mls/hr IVPB Q12 [facility] PRN Reason: Protocol Stop: 09/14/17 11:22 Last Admin: 09/05/17 12:41 Dose: 100 mls/hr Levothyroxine Sodium (Synthroid) 150 mcg PO 0600 [facility] Last Admin: 09/06/17 06:19 Dose: 150 mcg Polyethylene Glycol (Miralax) 17 gm PO DAILY [facility] Last Admin: 09/05/17 10:12 Dose: 17 gm Polysaccharide Iron Complex (Ferrex-150) 150 mg PO DAILY [facility] Last Admin: 09/05/17 10:12 Dose: 150 mg Risperidone (Risperdal Tab) 2 mg PO DAILY DAT PRN Reason: Protocol Risperidone (Risperdal Tab) 4 mg PO HS DAT PRN Reason: Protocol Last Admin: 09/05/17 21:39 Dose: Not Given Silver Sulfadiazine (Silvadene 1% 25 Gm) 0 gm TP BID [facility] Last Admin: 09/05/17 18:23 Dose: 25 gm Tramadol HCl (Ultram) 50 mg PO TID PRN PRN Reason: Pain, moderate (4-7) Trazodone HCl (Desyrel) 50 mg PO HS DAT Zolpidem Tartrate (Ambien) 5 mg PO HS PRN; Protocol PRN Reason: Insomnia - Labs Labs: 09/06/17 07:26 09/06/17 07:26 PT 11.2 SECONDS (9.4-12.5) 09/04/17 14:10 INR 1.03 (0.93-1.08) 09/04/17 14:10 APTT 28.3 Seconds (25.1-36.5) 09/06/17 07:26 - Constitutional Appears: No Acute Distress - Head Exam Head Exam: ATRAUMATIC, NORMAL INSPECTION, NORMOCEPHALIC - Eye Exam Eye Exam: Normal appearance, PERRL Pupil Exam: NORMAL ACCOMODATION - ENT Exam ENT Exam: Mucous Membranes Moist - Neck Exam Neck Exam: Full ROM - Respiratory Exam Respiratory Exam: Clear to Ausculation Bilateral, NORMAL BREATHING PATTERN. absent: Rales, Rhonchi, Wheezes - Cardiovascular Exam Cardiovascular Exam: REGULAR RHYTHM, +S1, +S2. absent: Gallop, Rubs, Murmur - GI/Abdominal Exam GI & Abdominal Exam: Soft, Normal Bowel Sounds. absent: Rigid, Tenderness, Mass , Rebound - Extremities Exam Extremities Exam: Normal Inspection. absent: Calf Tenderness, Pedal Edema - Neurological Exam Neurological Exam: Alert, Awake, CN II-XII Intact, Oriented x3 - Psychiatric Exam Psychiatric exam: Normal Affect, Normal Mood - Skin Skin Exam: Dry, Warm Additional comments: R breast has dressing in place- clean and dry no drainage. Assessment and Plan - Assessment and Plan (Free Text) Assessment: This is a 47yo female with past medical history of anemia, hypothyroidism, depression/anxiety, breast ductal carcinoma (AK/ER/Her-2 neg) T3N2M0 s/p mastectomy and reconstruction who was admitted for lesions on her R breast. These lesions can be cellulitis versus pressure ulcer versus necrosis. Lesion is most likely pressure ulcer from the increase size in the side of the R breast implant that presses on her arm. Plan: - ID consulted-recs appreciated - Pt evaluated by psych who restarted her psych medication for history of schizophrenia - Surgery consulted- recommended Santyl and dressing as well as follow up with Dr. Zimmerman in [place] (plastic surgeon) to evaluate the implant - Breast ultrasound did not show any acute abnormalities - Continue pain control - Patient will follow up with Dr. Crisostomo in his office upon discharge Case seen, discussed and reviewed with Dr. Crisostomo. Charlene Buckner PGY2.
[2017-09-06] MEDS: Iron Complex Polysacch 150mg Cap PO SCH (11:34)
[2017-09-06] MEDS: Divalproex 250 mg DR (BID formulation) PO SCH (11:36)
[2017-09-06] MEDS: Silver Sulfadiazine 1% Cream (25 gm) TP SCH (11:37)
[2017-09-06] MEDS: POLYETHYLENE GLYCOL 3350 17 GM/Dose PACKET PO SCH (11:37)
--- NOTE | 2017-09-06 13:58 | CP.PCM.DIS ---
<BharathigissellFred jaimes - Last Filed: 09/06/17 14:05> Provider - Provider Date of Admission: 09/04/17 15:57 Attending physician: Jasmine Schwartz MD Primary care physician: PMD: Dr. Ca Consults: General Surgery: Dr. Lafleur Infectious Disease: Dr. James Psychiatry: Dr. Ross Time Spent in preparation of Discharge (in minutes): 25 Diagnosis - Discharge Diagnosis (1) Pressure ulcer Status: Acute Hospital Course - Lab Results Lab Results: Most Recent Lab Values WBC 4.0 10^3/ul (4.5-11.0) L 09/06/17 07:26 RBC 3.99 10^6/uL (3.5-6.1) 09/06/17 07:26 Hgb 11.7 g/dL (12.0-16.0) L 09/06/17 07:26 Hct 35.8 % (36.0-48.0) L 09/06/17 07:26 MCV 89.7 fl (80.0-105.0) 09/06/17 07:26 MCH 29.3 pg (25.0-35.0) 09/06/17 07:26 MCHC 32.7 g/dl (31.0-37.0) 09/06/17 07:26 RDW 14.8 % (11.5-14.5) H 09/06/17 07:26 Plt Count 226 10^3/uL (120.0-450.0) 09/06/17 07:26 MPV 9.5 fl (7.0-11.0) 09/06/17 07:26 Gran % 33.2 % (50.0-68.0) L 09/06/17 07:26 Lymph % (Auto) 49.6 % (22.0-35.0) H 09/06/17 07:26 Union % (Auto) 14.9 % (1.0-6.0) H 09/06/17 07:26 Eos % (Auto) 2.3 % (1.5-5.0) 09/06/17 07:26 Baso % (Auto) 0.0 % (0.0-3.0) 09/06/17 07:26 Gran # 1.32 (1.4-6.5) L 09/06/17 07:26 Lymph # 2.0 (1.2-3.4) 09/06/17 07:26 Union # 0.6 (0.1-0.6) 09/06/17 07:26 Eos # 0.1 (0.0-0.7) 09/06/17 07:26 Baso # 0.00 K/mm3 (0.0-2.0) 09/06/17 07:26 PT 11.2 SECONDS (9.4-12.5) 09/04/17 14:10 INR 1.03 (0.93-1.08) 09/04/17 14:10 APTT 28.3 Seconds (25.1-36.5) 09/06/17 07:26 Sodium 142 mmol/L (132-148) 09/06/17 07:26 Potassium 3.7 mmol/L (3.6-5.0) 09/06/17 07:26 Chloride 106 mmol/L (98-107) 09/06/17 07:26 Carbon Dioxide 28 mmol/L (21-33) 09/06/17 07:26 Anion Gap 12 (10-20) 09/06/17 07:26 BUN 16 mg/dL (7-21) 09/06/17 07:26 Creatinine 0.9 mg/dL (0.7-1.2) 09/06/17 07:26 Est GFR ( Amer) > 60 09/06/17 07:26 Est GFR (Non-Af Amer) > 60 09/06/17 07:26 Random Glucose 93 mg/dL (70-110) 09/06/17 07:26 Calcium 9.1 mg/dL (8.4-10.5) 09/06/17 07:26 Phosphorus 4.8 mg/dL (2.5-4.5) H 09/04/17 14:10 Magnesium 1.7 mg/dL (1.7-2.2) 09/04/17 14:10 Total Bilirubin 0.4 mg/dL (0.2-1.3) 09/06/17 07:26 AST 25 U/L (14-36) 09/06/17 07:26 ALT 28 U/L (7-56) 09/06/17 07:26 Alkaline Phosphatase 61 U/L (38-126) 09/06/17 07:26 Total Protein 6.6 g/dL (5.8-8.3) 09/06/17 07:26 Albumin 3.4 g/dL (3.0-4.8) 09/06/17 07:26 Globulin 3.2 gm/dL 09/06/17 07:26 Albumin/Globulin Ratio 1.1 (1.1-1.8) 09/06/17 07:26 Lipase 96 U/L (23-300) 09/04/17 14:10 Procalcitonin < 0.05 NG/ML (0.19-0.49) L 09/05/17 06:41 TSH 3rd Generation 0.93 mIU/mL (0.46-4.68) 09/05/17 06:41 Urine Color Yellow (YELLOW) 09/04/17 14:55 Urine Appearance Clear (CLEAR) 09/04/17 14:55 Urine pH 7.0 (4.7-8.0) 09/04/17 14:55 Ur Specific Blachly 1.015 (1.005-1.035) 09/04/17 14:55 Urine Protein Negative mg/dL (<30 mg/dL) 09/04/17 14:55 Urine Glucose (UA) Negative mg/dL (NEGATIVE) 09/04/17 14:55 Urine Ketones Negative mg/dL (NEGATIVE) 09/04/17 14:55 Urine Blood Moderate (NEGATIVE) H 09/04/17 14:55 Urine Nitrate Negative (NEGATIVE) 09/04/17 14:55 Urine Bilirubin Negative (NEGATIVE) 09/04/17 14:55 Urine Urobilinogen 0.2 E.U./dL (<1 E.U./dL) 09/04/17 14:55 Ur Leukocyte Esterase Negative Dimitry/uL (NEGATIVE) 09/04/17 14:55 Urine RBC 2 - 5 /hpf (0-2) 09/04/17 14:55 Urine WBC 0 - 2 /hpf (0-6) 09/04/17 14:55 Ur Epithelial Cells 0 - 2 /hpf (0-5) 09/04/17 14:55 Urine Bacteria Few (NEG) 09/04/17 14:55 - Hospital Course Hospital Course: Patient is a 47 year old female with past medical history of breast cancer 15 years ago status post mastectomy, chemo/RT, breast reconstruction with implants and chronic lymphedema of her right upper extremity who was sent to the emergency department by her heme/onc physician Dr. Crisostomo for right arm discomfort and right breast skin changes suspicious for cellulitis. Patient was evaluated and found to have more of a pressure ulcer clinical picture rather than cellulitis. The patient ulcers were cultured and dressed with bandage and silver sulfadiazine. Infectious disease was consulted and patient was placed on IV antibiotics and monitored clinically. General surgery was consulted and evaluated the patient for potential intervention. General surgery felt the ulcers were a result of pressure ulcer. Recommended bandage and dressing as well as follow up with a plastic surgeon Dr. Zimmerman in [place] for possible intervention. Psychiatry was consulted due to clinical picture and current medication regiment. Psychiatry confirmed medications and assessed the patient not to be in any imminent danger to self or others. With General surgery not planning intervention the patient was evaluated to be hemodynamically stable and appropriate to be discharged to home with outpatient follow up. Patient was educated on plan and was in understanding and agreeable with plan. - Date & Time of H&P Date of H&P: 09/04/17 Time of H&P: 21:14 Discharge Exam - Head Exam Head Exam: ATRAUMATIC, NORMAL INSPECTION, NORMOCEPHALIC - Eye Exam Eye Exam: EOMI Pupil Exam: NORMAL ACCOMODATION - Neck Exam Neck exam: Full Rom - Respiratory Exam Respiratory Exam: Clear to PA & Lateral, NORMAL BREATHING PATTERN, UNREMARKABLE - Cardiovascular Exam Cardiovascular Exam: REGULAR RHYTHM, +S1, +S2 - GI/Abdominal Exam GI & Abdominal Exam: Normal Bowel Sounds, Soft - Extremities Exam Extremities exam: full ROM, pedal pulses present Additional comments: Right upper extremity with notable lymphedemea, noted to be chronic issue - Back Exam Back exam: NORMAL INSPECTION - Neurological Exam Neurological exam: Alert, CN II-XII Intact, Normal Gait, Oriented x3 - Psychiatric Exam Psychiatric exam: Depressed - Skin Skin Exam: Dry, Intact, Normal Color, Warm Additional comments: Lateral right breast with ulceration noted to be 1 inch by 2 cm with eschar center and erythematous borders, no significant induration, not warm to touch without discharge currently under bandage c/d/i Discharge Plan - Discharge Medications Prescriptions: Cephalexin [Keflex] 500 mg PO BID 7 Days capsule Silver Sulfadiazine 1% 25 gm [Silvadene 1% 25 gm] 0 gm TP BID #1 cream - Follow Up Plan Condition: FAIR Disposition: HOME/ ROUTINE Instructions: Pneumococcal Vaccine for Adults (GEN), Cellulitis (DC), Influenza (GEN), Regular Diet (GEN), Acute Wound Care (GEN) Additional Instructions: 1. Follow up with your primary medical doctor 2. Follow up with plastic surgeon Dr. Zimmerman in [place] (plastic surgeon) 3. Follow up with Dr. Crisostomo in his office 4. Take medications as prescribed to you 5. Return to the hospital if your symptoms worsen Referrals: Elva Zimmerman MD [Staff Provider] - <Jasmine Schwartz - Last Filed: 09/07/17 10:57> Provider - Provider Date of Admission: 09/04/17 15:57 Attending physician: Jasmine Schwartz MD Hospital Course - Lab Results Lab Results: Most Recent Lab Values WBC 4.0 10^3/ul (4.5-11.0) L 09/06/17 07:26 RBC 3.99 10^6/uL (3.5-6.1) 09/06/17 07:26 Hgb 11.7 g/dL (12.0-16.0) L 09/06/17 07:26 Hct 35.8 % (36.0-48.0) L 09/06/17 07:26 MCV 89.7 fl (80.0-105.0) 09/06/17 07:26 MCH 29.3 pg (25.0-35.0) 09/06/17 07:26 MCHC 32.7 g/dl (31.0-37.0) 09/06/17 07:26 RDW 14.8 % (11.5-14.5) H 09/06/17 07:26 Plt Count 226 10^3/uL (120.0-450.0) 09/06/17 07:26 MPV 9.5 fl (7.0-11.0) 09/06/17 07:26 Gran % 33.2 % (50.0-68.0) L 09/06/17 07:26 Lymph % (Auto) 49.6 % (22.0-35.0) H 09/06/17 07:26 Union % (Auto) 14.9 % (1.0-6.0) H 09/06/17 07:26 Eos % (Auto) 2.3 % (1.5-5.0) 09/06/17 07:26 Baso % (Auto) 0.0 % (0.0-3.0) 09/06/17 07:26 Gran # 1.32 (1.4-6.5) L 09/06/17 07: Lymph # 2.0 (1.2-3.4) 09/06/17 07:26 Union # 0.6 (0.1-0.6) 09/06/17 07:26 Eos # 0.1 (0.0-0.7) 09/06/17 07: Baso # 0.00 K/mm3 (0.0-2.0) 09/06/17 07:26 PT 11.2 SECONDS (9.4-12.5) 09/04/17 14:10 INR 1.03 (0.93-1.08) 09/04/17 14:10 APTT 28.3 Seconds (25.1-36.5) 09/06/17 07:26 Sodium 142 mmol/L (132-148) 09/06/17 07:26 Potassium 3.7 mmol/L (3.6-5.0) 09/06/17 07:26 Chloride 106 mmol/L (98-107) 09/06/17 07:26 Carbon Dioxide 28 mmol/L (21-33) 09/06/17 07:26 Anion Gap 12 (10-20) 09/06/17 07:26 BUN 16 mg/dL (7-21) 09/06/17 07:26 Creatinine 0.9 mg/dL (0.7-1.2) 09/06/17 07:26 Est GFR ( Amer) > 60 09/06/17 07:26 Est GFR (Non-Af Amer) > 60 09/06/17 07:26 Random Glucose 93 mg/dL (70-110) 09/06/17 07:26 Calcium 9.1 mg/dL (8.4-10.5) 09/06/17 07:26 Phosphorus 4.8 mg/dL (2.5-4.5) H 09/04/17 14:10 Magnesium 1.7 mg/dL (1.7-2.2) 09/04/17 14:10 Total Bilirubin 0.4 mg/dL (0.2-1.3) 09/06/17 07:26 AST 25 U/L (14-36) 09/06/17 07:26 ALT 28 U/L (7-56) 09/06/17 07:26 Alkaline Phosphatase 61 U/L (38-126) 09/06/17 07:26 Total Protein 6.6 g/dL (5.8-8.3) 09/06/17 07:26 Albumin 3.4 g/dL (3.0-4.8) 09/06/17 07:26 Globulin 3.2 gm/dL 09/06/17 07:26 Albumin/Globulin Ratio 1.1 (1.1-1.8) 09/06/17 07:26 Lipase 96 U/L (23-300) 09/04/17 14:10 Procalcitonin < 0.05 NG/ML (0.19-0.49) L 09/05/17 06:41 TSH 3rd Generation 0.93 mIU/mL (0.46-4.68) 09/05/17 06:41 Urine Color Yellow (YELLOW) 09/04/17 14:55 Urine Appearance Clear (CLEAR) 09/04/17 14:55 Urine pH 7.0 (4.7-8.0) 09/04/17 14:55 Ur Specific Blachly 1.015 (1.005-1.035) 09/04/17 14:55 Urine Protein Negative mg/dL (<30 mg/dL) 09/04/17 14:55 Urine Glucose (UA) Negative mg/dL (NEGATIVE) 09/04/17 14:55 Urine Ketones Negative mg/dL (NEGATIVE) 09/04/17 14:55 Urine Blood Moderate (NEGATIVE) H 09/04/17 14:55 Urine Nitrate Negative (NEGATIVE) 09/04/17 14:55 Urine Bilirubin Negative (NEGATIVE) 09/04/17 14:55 Urine Urobilinogen 0.2 E.U./dL (<1 E.U./dL) 09/04/17 14:55 Ur Leukocyte Esterase Negative Dimitry/uL (NEGATIVE) 09/04/17 14:55 Urine RBC 2 - 5 /hpf (0-2) 09/04/17 14:55 Urine WBC 0 - 2 /hpf (0-6) 09/04/17 14:55 Ur Epithelial Cells 0 - 2 /hpf (0-5) 09/04/17 14:55 Urine Bacteria Few (NEG) 09/04/17 14:55 Attending/Attestation - Attestation I have personally seen and examined this patient.: Yes I have fully participated in the care of the patient.: Yes I have reviewed all pertinent clinical information, including history, physical exam and plan: Yes Notes (Text): 09/07/17 10:57 Patient was seen and examined with medical observer. Agreed with resident assessment and plan. Management plan was discussed in detail with patient Education was provided.
--- NOTE | 2017-09-06 17:01 | CP.PCM.PN ---
Subjective - Date & Time of Evaluation Date of Evaluation: 09/06/17 Time of Evaluation: 11:50 - Subjective Subjective: Feeling a little better, no fevers overnight, not in distress. Less pain in the right arm and breast. Objective - Vital Signs/Intake and Output Vital Signs (last 24 hours): Temp Pulse Resp BP Pulse Ox 98.3 F 73 18 120/70 97 09/06/17 07:30 09/06/17 07:30 09/06/17 07:30 09/06/17 07:30 09/06/17 07:30 Intake and Output: 09/06/17 09/06/17 06:59 18:59 Intake Total 240 600 Output Total 0 Balance 240 600 - Medications Medications: Current Medications Acetaminophen (Tylenol 325mg Tab) 650 mg PO Q6H PRN PRN Reason: Fever >100.4 F Amantadine HCl (Amantadine 100 Mg Cap) 100 mg PO DAILY [facility] Last Admin: 09/06/17 11:32 Dose: 100 mg Benztropine Mesylate (Cogentin) 1 mg PO DAILY [facility] Last Admin: 09/06/17 11:33 Dose: 1 mg Calcium Carbonate (Caltrate) 600 mg PO DAILY [facility] Last Admin: 09/06/17 11:37 Dose: 600 mg Divalproex Sodium (Depakote Dr (*Bid*)) 250 mg PO BID [facility] Last Admin: 09/06/17 11:36 Dose: 250 mg Famotidine (Pepcid) 20 mg PO BID [facility] Last Admin: 09/06/17 11:35 Dose: 20 mg Folic Acid (Folic Acid) 1 mg PO DAILY [facility] Last Admin: 09/06/17 11:33 Dose: 1 mg Ceftaroline Fosamil 600 mg/ (Sodium Chloride) 100 mls @ 100 mls/hr IVPB Q12 [facility] PRN Reason: Protocol Stop: 09/14/17 11:22 Last Admin: 09/05/17 12:41 Dose: 100 mls/hr Levothyroxine Sodium (Synthroid) 150 mcg PO 0600 [facility] Last Admin: 09/06/17 06:19 Dose: 150 mcg Polyethylene Glycol (Miralax) 17 gm PO DAILY [facility] Last Admin: 09/06/17 11:37 Dose: 17 gm Polysaccharide Iron Complex (Ferrex-150) 150 mg PO DAILY [facility] Last Admin: 09/06/17 11:34 Dose: 150 mg Risperidone (Risperdal Tab) 2 mg PO DAILY DAT PRN Reason: Protocol Last Admin: 09/06/17 11:36 Dose: 2 mg Risperidone (Risperdal Tab) 4 mg PO HS DAT PRN Reason: Protocol Last Admin: 09/05/17 21:39 Dose: Not Given Silver Sulfadiazine (Silvadene 1% 25 Gm) 0 gm TP BID DAT Last Admin: 09/06/17 11:37 Dose: 25 gm Tramadol HCl (Ultram) 50 mg PO TID PRN PRN Reason: Pain, moderate (4-7) Trazodone HCl (Desyrel) 50 mg PO HS DAT Zolpidem Tartrate (Ambien) 5 mg PO HS PRN; Protocol PRN Reason: Insomnia - Labs Labs: 09/06/17 07:26 09/06/17 07:26 PT 11.2 SECONDS (9.4-12.5) 09/04/17 14:10 INR 1.03 (0.93-1.08) 09/04/17 14:10 APTT 28.3 Seconds (25.1-36.5) 09/06/17 07:26 - Constitutional Appears: Non-toxic, Chronically Ill - Head Exam Head Exam: NORMAL INSPECTION - ENT Exam ENT Exam: Mucous Membranes Moist - Neck Exam Neck Exam: absent: Meningismus - Respiratory Exam Respiratory Exam: Decreased Breath Sounds - Cardiovascular Exam Cardiovascular Exam: +S1, +S2 - GI/Abdominal Exam GI & Abdominal Exam: Soft. absent: Tenderness - Extremities Exam Additional comments: right arm with swelling, lateral breast area with dressings in place Assessment and Plan - Assessment and Plan (Free Text) Plan: Assessment mild right arm cellulitis associated with chronic lymphedema breast ulcers, etiology to be determined breast cancer Depression Plan on Teflaro day 2; cultures have been negative; patient may need biopsy of the ulcers since they are chronic; patient can be switched to PO Keflex to complete 7-10 days of therapy
== END 2017-09-06 18:35 | disposition home or self-care (01) ==
LOC: ED 12:52 → INTOOBSV 15:57 → ERH 15:57 → 5RSO 19:06
PROVIDERS: ADMIT Internal Medicine; ATTEND Internal Medicine
DX: L89.899 Pressure ulcer of other site, unspecified stage (principal); L03.113 Cellulitis of right upper limb; F25.9 Schizoaffective disorder, unspecified; F32.9 Major depressive disorder, single episode, unspecified; E03.9 Hypothyroidism, unspecified; I89.0 Lymphedema, not elsewhere classified; F41.9 Anxiety disorder, unspecified; E66.9 Obesity, unspecified; D50.9 Iron deficiency anemia, unspecified; K59.00 Constipation, unspecified; Z85.3 Personal history of malignant neoplasm of breast; Z88.1 Allergy status to other antibiotic agents; Z68.28 Body mass index [BMI] 28.0-28.9, adult; Z90.11 Acquired absence of right breast and nipple; Z98.82 Breast implant status
CPT/HCPCS: 36415; 71020; 76641; 80053; 81001; 83690; 83735; 84100; 84145; 84443; 85025; 85610; 85730; 87040; 87086; 93005; 93971; 96365; 96366; 96367; 96372; 96375; 97116; 97162; 99285; G0378; G8978; G8979; G8980; J0712; J1200; J1644; J2543

== ENCOUNTER 2018-09-09 13:21 | Inpatient (IN) | payer MEDICAID, OTHER ==
--- NOTE | 2018-09-09 15:31 | ED PDOC ---
Arrival/HPI - General Chief Complaint: ENT Problem Time Seen by Provider: 09/09/18 13:25 Historian: Patient - History of Present Illness Narrative History of Present Illness (Text): 09/09/18 15:47 48-year-old female with a history of breast CA and dysphagia in the past presents today with difficulty swallowing that started yesterday. Patient states she was eating a chicken breast and suddenly felt as if food was getting stuck in the throat. Patient states she has not eaten since that male yesterday states she is able to swallow some liquids but it is difficult. Patient states she had a history of similar events in the past and had endoscopy and was told nothing was wrong. Patient denies chest pain or shortness of breath. Denies fevers or chills. No other complaints. Past Medical History - Provider Review Nursing Documentation Reviewed: Yes - Travel History Have you recently traveled outside [place] w/in the past 3 mons?: No - Infectious Disease Hx of Infectious Diseases: None - Tetanus Immunization Tetanus Immunization: Unknown - Cardiac Hx Cardiac Disorders: No - Pulmonary Hx Respiratory Disorders: No - Neurological Hx Neurological Disorder: No - HEENT Hx HEENT Disorder: No - Renal Hx Renal Disorder: No - Endocrine/Metabolic Hx Endocrine Disorders: Yes Hx Hyperthyroidism: Yes - Hematological/Oncological Hx Blood Disorders: Yes Hx Cancer: Yes (RIGHT BREAST CANCER) Hx Chemotherapy: Yes - Integumentary Hx Dermatological Disorder: No - Musculoskeletal/Rheumatological Hx Musculoskeletal Disorders: Yes Hx Arthritis: Yes Hx Rheumatoid Arthritis: Yes - Gastrointestinal Hx Gastrointestinal Disorders: No - Genitourinary/Gynecological Hx Genitourinary Disorders: No - Psychiatric Hx Psychophysiologic Disorder: Yes Hx Depression: Yes Hx Substance Use: No - Surgical History Hx Section: Yes Hx Liver Transplant: Yes Other/Comment: BREAST SURGERY, LT BREAST REDUCTION MAMMOPLASTY, CAPSULE ENDOSC OPY - Anesthesia Hx Anesthesia: Yes Hx Anesthesia Reactions: No Hx Malignant Hyperthermia: No - Suicidal Assessment Feels Threatened In Home Enviroment: No Family/Social History - Physician Review Nursing Documentation Reviewed: Yes Family/Social History: Unknown Family HX Smoking Status: Never Smoked Hx Alcohol Use: No Hx Substance Use: No Hx Substance Use Treatment: No Allergies/Home Meds Allergies/Adverse Reactions: Allergies vancomycin Adverse Reaction (Intermediate, Verified 09/09/18 13:53) ITCHING facial flushing, itching, and hot sensation Home Medications: Home Meds Medication Instructions Recorded Confirmed Cholecalciferol (Vitamin D3) 1 tab PO DAILY 03/20/18 09/09/18 [Vitamin D-400] Fluoxetine HCl 1 tab PO DAILY 03/20/18 09/09/18 Folic Acid 1 tab PO DAILY 03/21/18 09/09/18 Aripiprazole [Abilify] 20 mg PO DAILY 09/09/18 09/09/18 Benztropine [Cogentin] 1 mg PO BID 09/09/18 09/09/18 Gabapentin [Neurontin] 300 mg PO DAILY 09/09/18 09/09/18 Levothyroxine [Synthroid] 137 mg PO DAILY 09/09/18 Methotrexate [Xatmep] 2.5 mg PO DAILY 09/09/18 09/09/18 Omeprazole 40 mg PO DAILY 09/09/18 09/09/18 Propranolol [Inderal] 10 mg PO DAILY 09/09/18 09/09/18 Quetiapine Fumarate [Seroquel] 50 mg PO DAILY 09/09/18 09/09/18 Sennosides [Senna Laxative] 1 tab PO DAILY 09/09/18 09/09/18 Spironolact/Hydrochlorothiazid 1 tab PO DAILY 09/09/18 09/09/18 [Spironolactone-Hctz 25-25 Tab] Review of Systems - Review of Systems Constitutional: absent: Fatigue, Fevers ENT: absent: Sore Throat, Rhinorrhea, Epistaxis, Sinus Congestion Respiratory: absent: SOB, Cough Cardiovascular: absent: Chest Pain, Palpitations Gastrointestinal: absent: Abdominal Pain, Nausea, Vomiting Genitourinary Female: absent: Dysuria, Frequency Musculoskeletal: absent: Arthralgias, Back Pain Skin: absent: Rash, Pruritis Neurological: absent: Headache, Dizziness Psychiatric: absent: Anxiety, Depression Physical Exam Vital Signs Reviewed: Yes Vital Signs Temp Pulse Resp BP Pulse Ox 09/09/18 13:53 98.6 F 85 17 117/70 97 Temperature: Afebrile Blood Pressure: Normal Pulse: Regular Respiratory Rate: Normal Appearance: Positive for: Well-Appearing, Non-Toxic, Comfortable Pain Distress: None Mental Status: Positive for: Alert and Oriented X 3 - Systems Exam Head: Present: Atraumatic Mouth: Present: Moist Mucous Membranes. No: Drooling, Trismus Pharnyx: Present: Normal. No: ERYTHEMA, EXUDATE, TONSILS ENLARGED, Peritonsilar Swelling, Uvular Deviation, Muffled/Hoarse Voice, Strider, Soft Palate/Uvular Edema Nose (External): Present: Atraumatic Nose (Internal): Present: Normal Inspection Neck: Present: Normal Range of Motion, Trachea Midline. No: Lymphadenopathy Respiratory/Chest: Present: Clear to Auscultation, Good Air Exchange. No: Respiratory Distress, Accessory Muscle Use Cardiovascular: Present: Regular Rate and Rhythm, Normal S1, S2. No: Murmurs Abdomen: No: Tenderness, Rebound, Guarding Upper Extremity: Present: Normal ROM Lower Extremity: Present: Normal ROM Neurological: Present: GCS=15, Speech Normal Skin: Present: Warm, Dry, Normal Color. No: Rashes Psychiatric: Present: Alert, Oriented x 3 Medical Decision Making ED Course and Treatment: 09/09/18 18:04 48-year-old female presents today with difficulty swallowing. Patient is refusing to eat or drink anything due to her concern for choking CBC: CMP: Chest x-ray: Within normal limits CAT scan of the soft tissue neck: FINDINGS: NASOPHARYNX: Unremarkable. SUPRAHYOID NECK: Unremarkable oropharynx, oral cavity, parapharyngeal space and retropharyngeal space. INFRAHYOID NECK: Unremarkable larynx, hypopharynx, and supraglottic space. Vocal cords intact. MASS: None. GLANDS: Parotid and submandibular glands unremarkable. Normal size thyroid gland, without nodule. LYMPH NODES: Normal. No lymphadenopathy. CERVICAL SPINE: No fracture or focal lesion. OTHER FINDINGS: None. IMPRESSION: No evidence of foreign body in the cervical esophagus or oropharynx Patient reassessment: Patient drinking water in er; c/o occasional difficulty with swallowing, but currently tolerating PO liquid. case discussed with dr. smith. will admit the patient observational status to med/surg with GI consult. impression; dysphagia admit to med/surg observational status. - RAD Interpretation Radiology Orders: 09/09/18 14:56 NECK SOFT TISSUE W/O CONTRAST [CT] Stat Disposition/Present on Arrival - Present on Arrival Any Indicators Present on Arrival: No History of DVT/PE: No History of Uncontrolled Diabetes: No Urinary Catheter: No History of Decub. Ulcer: No History Surgical Site Infection Following: None - Disposition Have Diagnosis and Disposition been Completed?: Yes Diagnosis: Dysphagia Disposition: HOSPITALIZED Disposition Time: 17:00 Patient Plan: Observation Condition: FAIR Forms: [employer] (Czech)
--- NOTE | 2018-09-09 16:49 | CT ---
Date of service: 09/09/2018 PROCEDURE: CT NECK WITHOUT CONTRAST HISTORY: eating chicken last night, feels stuck COMPARISON: None available. TECHNIQUE: CT of the neck without intravenous contrast. Coronal and sagittal reformats generated. Radiation dose: Total exam DLP = 395.0 mGy-cm. This CT exam was performed using one or more of the following dose reduction techniques: Automated exposure control, adjustment of the mA and/or kV according to patient size, and/or use of iterative reconstruction technique. FINDINGS: NASOPHARYNX: Unremarkable. SUPRAHYOID NECK: Unremarkable oropharynx, oral cavity, parapharyngeal space and retropharyngeal space. INFRAHYOID NECK: Unremarkable larynx, hypopharynx, and supraglottic space. Vocal cords intact. MASS: None. GLANDS: Parotid and submandibular glands unremarkable. Normal size thyroid gland, without nodule. LYMPH NODES: Normal. No lymphadenopathy. CERVICAL SPINE: No fracture or focal lesion. OTHER FINDINGS: None. IMPRESSION: No evidence of foreign body in the cervical esophagus or oropharynx
--- NOTE | 2018-09-09 17:10 | RAD ---
Date of service: 09/09/2018 HISTORY: feeling of inability to swallow COMPARISON: 09/04/2017 FINDINGS: LUNGS: No active pulmonary disease. PLEURA: No significant pleural effusion identified, no pneumothorax apparent. CARDIOVASCULAR: No aortic atherosclerotic calcification present. Normal cardiac size. No pulmonary vascular congestion. OSSEOUS STRUCTURES: No significant abnormalities. VISUALIZED UPPER ABDOMEN: Normal. OTHER FINDINGS: None. IMPRESSION: No active disease.
[2018-09-09] MEDS ORDERED: Sodium Chloride 0.9% 1,000 ML IV STA (17:34)
[2018-09-09 17:46] LABS: BASO # 0.01 K/mm3 (0.0-2.0); BASO % 0.2 % (0.0-3.0); EOS % 0.8 % (1.5-5.0); GRAN # 2.15 (1.4-6.5); GRAN % 44.5 % (50.0-68.0); HEMOGLOBIN 12.3 g/dL (12.0-16.0); LYMPH # 2.2 (1.2-3.4); LYMPH % 46.4 % (22.0-35.0); MEAN CELL VOLUME 86.5 fl (80.0-105.0); MEAN CORPUSCULAR HEMOGLOBIN 28.1 pg (25.0-35.0); MEAN CORPUSCULAR HGB CONC 32.5 g/dl (31.0-37.0); MEAN PLATELET VOLUME 9.3 fl (7.0-11.0); MONO # 0.4 (0.1-0.6); MONO % 8.1 % (1.0-6.0); RBC 4.38 10^6/uL (3.5-6.1); RED CELL DISTRIBUTION WIDTH 16.1 % (11.5-14.5); WHITE BLOOD COUNT 4.8 10^3/uL (4.5-11.0)
[2018-09-09 17:50] LABS: INR 0.99; PARTIAL THROMBOPLASTIN TIME 26.3 Seconds (25.1-36.5); PROTHROMBIN TIME 11.3 SECONDS (9.4-12.5)
[2018-09-09 20:08] LABS: ALB/GLOB RATIO 1.1 (1.1-1.8); ALT/SGPT 57 U/L (7-56); AST/SGOT 35 U/L (14-36); BLOOD UREA NITROGEN 19 mg/dL (7-21); CALCIUM 9.6 mg/dL (8.4-10.5); GFR NON-AFRICAN AMERICAN 59
[2018-09-09 22:13] VITALS: BMI 29.5
[2018-09-09] MEDS ORDERED: Pneumococcal 23-Valent Vaccine IM ONE (22:13)
[2018-09-09] MEDS ORDERED: Influenza Vaccine 60 mcg/0.5 mL SYR (4YR UP) IM ONE (22:13)
[2018-09-10] MEDS ORDERED: Levothyroxine 150 MCG TAB PO SCH (10:00)
[2018-09-10] MEDS ORDERED: [UNRECOGNIZED DRUG - OTHER] PO SCH (10:00)
--- NOTE | 2018-09-10 11:20 | CP.PCM.CON ---
<Stacy Colbert - Last Filed: 09/10/18 10:58> History of Present Illness - History of Present Illness History of Present Illness: Gastroenterology Fellow/PGY6 Consult Note 48 year old female with PMH of Stage III Right Breast Cancer s/p right mastectomy with chemoradiation in 2003 and right breast reconstruction 2012, and chronic right arm lymphedema presenting with difficulty swallowing. Patient notes progressive symptoms of solids being getting stuck in her throat for six months with coughing to liquid intake for the last two months. She admits to minimal oral intake for the last three days due to sensation of choking and liquids being stuck in her throat. Admits to small caliber stools with straining every 2-3 days without rectal pain, burning, or itching. Denies nausea, vomiting , abdominal pain, acid reflux, heartburn, bloating, diarrhea, melena, hematochezia, NSAID use, new medications, or recent antibiotics Modified barium swallow 01/2018 showed no signs of aspiration. EGD 03/2018 to evaluate dysphagia showed mild upper/mid-esophagitis without Osborne's or eosinophilic esophagitis. EGD 07/2016 to evaluate iron deficiency anemia showed H. pylori negative gastritis. Colonoscopy 07/2016 showed a 1cm ascending inflammatory polyp and internal hemorrhoids. Family History-denies colon cancer stomach cancer Social-denies tobacco, alcohol, or illicit drug use Surgical-right breast mastectomy-2003 and reconstruction-2012 Review of Systems - Review of Systems Review of Systems: 12-point review of systems negative except for as above. Past Patient History - Infectious Disease Hx of Infectious Diseases: None - Tetanus Immunizations Tetanus Immunization: Unknown - Past Medical History & Family History Past Medical History?: Yes - Past Social History Smoking Status: Never Smoked - CARDIAC Hx Cardiac Disorders: No - PULMONARY Hx Respiratory Disorders: No - NEUROLOGICAL Hx Neurological Disorder: No - HEENT Hx HEENT Problems: No - RENAL Hx Chronic Kidney Disease: No - ENDOCRINE/METABOLIC Hx Endocrine Disorders: Yes Hx Hyperthyroidism: Yes - HEMATOLOGICAL/ONCOLOGICAL Hx Blood Disorders: Yes Hx Cancer: Yes (RIGHT BREAST CANCER) Hx Chemotherapy: Yes - INTEGUMENTARY Hx Dermatological Problems: No - MUSCULOSKELETAL/RHEUMATOLOGICAL Hx Musculoskeletal Disorders: Yes Hx Arthritis: Yes Hx Falls: No - GASTROINTESTINAL Hx Gastrointestinal Disorders: No - GENITOURINARY/GYNECOLOGICAL Hx Genitourinary Disorders: Yes (C/S X 1) - PSYCHIATRIC Hx Psychophysiologic Disorder: Yes Hx Depression: Yes Hx Substance Use: No - SURGICAL HISTORY Hx Surgeries: Yes (SKIN GRAFT TAKEN FROM THIGH FOR RIGHT BREAST SX.C/S X 1) Hx Liver Transplant: Yes Other/Comment: BREAST SURGERY, LT BREAST REDUCTION MAMMOPLASTY, CAPSULE ENDOSCOPY - ANESTHESIA Hx Anesthesia: Yes Hx Anesthesia Reactions: No Hx Malignant Hyperthermia: No Meds Allergies/Adverse Reactions: Allergies Allergy/AdvReac Type Severity Reaction Status Date / Time vancomycin AdvReac Intermediate ITCHING Verified 09/09/18 18:28 - Medications Medications: Current Medications Aripiprazole (Abilify) 20 mg PO DAILY [facility] Last Admin: 09/10/18 10:42 Dose: 20 mg Benztropine Mesylate (Cogentin) 1 mg PO BID [facility] Last Admin: 09/10/18 10:43 Dose: 1 mg Fluoxetine HCl (Prozac) 20 mg PO DAILY [facility] Last Admin: 09/10/18 10:43 Dose: 20 mg Folic Acid (Folic Acid) 1 mg PO DAILY [facility] Last Admin: 09/10/18 10:52 Dose: Not Given Gabapentin (Neurontin) 300 mg PO DAILY [facility]; Protocol Last Admin: 09/10/18 10:51 Dose: Not Given Hydrochlorothiazide (Hydrodiuril) 25 mg PO DAILY [facility] Last Admin: 09/10/18 10:52 Dose: Not Given Levothyroxine Sodium (Synthroid) 125 mcg PO 0600 [facility] Propranolol HCl (Inderal) 10 mg PO DAILY [facility] Last Admin: 09/10/18 10:52 Dose: Not Given Quetiapine Fumarate (Seroquel) 50 mg PO DAILY [facility] Last Admin: 09/10/18 10:53 Dose: Not Given Spironolactone (Aldactone) 25 mg PO DAILY [facility] Physical Exam - Constitutional Appears: Non-toxic, No Acute Distress - Head Exam Head Exam: ATRAUMATIC, NORMOCEPHALIC - Eye Exam Eye Exam: EOMI, PERRL. absent: Scleral icterus Pupil Exam: PERRL. absent: Miosis, Mydriatic - ENT Exam ENT Exam: Mucous Membranes Moist, Normal Oropharynx - Neck Exam Neck exam: Positive for: Full Rom, Normal Inspection - Respiratory Exam Respiratory Exam: Clear to Auscultation Bilateral. absent: Rales, Rhonchi, Wheezes - Cardiovascular Exam Cardiovascular Exam: RRR, +S1, +S2. absent: Gallop, Rubs - GI/Abdominal Exam GI & Abdominal Exam: Normal Bowel Sounds, Soft. absent: Distended, Firm, Guarding, Organomegaly, Rebound, Rigid, Tenderness - Extremities Exam Extremities exam: Positive for: normal inspection. Negative for: pedal edema - Neurological Exam Neurological exam: Alert, Oriented x3 - Psychiatric Exam Psychiatric exam: Normal Affect, Normal Mood - Skin Skin Exam: Dry, Intact, Normal Color, Warm Results - Vital Signs Recent Vital Signs: Last Vital Signs Temp 97.6 F 09/10/18 06:00 Pulse 81 09/10/18 06:00 Resp 20 09/10/18 06:00 BP 107/61 09/10/18 06:00 Pulse Ox 100 09/10/18 06:00 - Labs Result Diagrams: 09/09/18 17:21 09/09/18 19:50 Labs: Laboratory Results - last 24 hr 09/09/18 09/09/18 09/09/18 17:21 17:21 19:50 WBC 4.8 RBC 4.38 Hgb 12.3 Hct 37.9 MCV 86.5 D MCH 28.1 MCHC 32.5 RDW 16.1 H Plt Count 363 MPV 9.3 Gran % 44.5 L Lymph % (Auto) 46.4 H [place] % (Auto) 8.1 H Eos % (Auto) 0.8 L Baso % (Auto) 0.2 Gran # 2.15 Lymph # (Auto) 2.2 [place] # (Auto) 0.4 Eos # (Auto) 0.0 Baso # (Auto) 0.01 PT 11.3 INR 0.99 APTT 26.3 Sodium 140 Potassium 3.6 Chloride 107 Carbon Dioxide 23 Anion Gap 14 BUN 19 Creatinine 1.0 Est GFR ( Amer) > 60 Est GFR (Non-Af Amer) 59 Random Glucose 84 Calcium 9.6 Total Bilirubin 0.4 AST 35 ALT 57 H Alkaline Phosphatase 81 Total Protein 7.6 Albumin 4.0 Globulin 3.5 Albumin/Globulin Ratio 1.1 Assessment & Plan - Assessment and Plan (Free Text) Assessment: 48 year old female with PMH of Stage III Right Breast Cancer s/p right mastectomy with chemoradiation in 2003 and right breast reconstruction 2012, and chronic right arm lymphedema presenting with difficulty swallowing. Active treatment of progressive dysphagia to solids and liquids with limited liquid intake for the last three days. Modified barium swallow 01/2018 showed no signs of aspiration. EGD 03/2018 to evaluate dysphagia showed mild upper/mid- esophagitis without Osborne's or eosinophilic esophagitis. EGD 07/2016 to evaluate iron deficiency anemia showed H. pylori negative gastritis. Colonoscopy 07/2016 showed a 1cm ascending inflammatory polyp and internal hemorrhoids. Plan: -NPO -EGD today -re-assess prior upper/mid-esophaguus mucosal changes on EGD 6 months ago -histology showing mild esophagitis -supportive care -speech therapy evaluation -further recommendations after EGD -if no acute findings on EGD, consider esophagram and/or motility study <Tan Bob V - Last Filed: 09/10/18 19:35> Meds - Medications Medications: Current Medications Aripiprazole (Abilify) 10 mg PO DAILY [facility] Benztropine Mesylate (Cogentin) 1 mg PO BID [facility] Last Admin: 09/10/18 19:11 Dose: 1 mg Fluoxetine HCl (Prozac) 30 mg PO DAILY [facility] Folic Acid (Folic Acid) 1 mg PO DAILY [facility] Last Admin: 09/10/18 10:52 Dose: Not Given Gabapentin (Neurontin) 300 mg PO DAILY [facility]; Protocol Last Admin: 09/10/18 10:51 Dose: Not Given Hydrochlorothiazide (Hydrodiuril) 25 mg PO DAILY [facility] Last Admin: 09/10/18 10:52 Dose: Not Given Dextrose/Sodium Chloride (Dextrose 5%/0.45% Ns 1000 Ml) 1,000 mls @ 75 mls/hr I V .[id number] [facility] Last Admin: 09/10/18 14:02 Dose: 75 mls/hr Sodium Chloride (Sodium Chloride 0.9%) 1,000 mls @ 100 mls/hr IV .Q10H DAT Levothyroxine Sodium (Synthroid) 125 mcg PO 0600 [facility] Propranolol HCl (Inderal) 10 mg PO DAILY [facility] Last Admin: 09/10/18 10:52 Dose: Not Given Quetiapine Fumarate (Seroquel) 200 mg PO HS [facility]; Protocol Quetiapine Fumarate (Seroquel) 100 mg PO DAILY [facility] Spironolactone (Aldactone) 25 mg PO DAILY [facility] Last Admin: 09/10/18 13:53 Dose: Not Given Results - Vital Signs Recent Vital Signs: Last Vital Signs Temp 97.5 F L 11/07/18 18:46 Pulse 77 09/10/18 18:46 Resp 18 09/10/18 18:46 BP 104/68 09/10/18 18:46 Pulse Ox 100 09/10/18 17:55 - Labs Result Diagrams: 09/09/18 17:21 09/09/18 19:50 Labs: Laboratory Results - last 24 hr 09/09/18 19:50 Sodium 140 Potassium 3.6 Chloride 107 Carbon Dioxide 23 Anion Gap 14 BUN 19 Creatinine 1.0 Est GFR ( Amer) > 60 Est GFR (Non-Af Amer) 59 Random Glucose 84 Calcium 9.6 Total Bilirubin 0.4 AST 35 ALT 57 H Alkaline Phosphatase 81 Total Protein 7.6 Albumin 4.0 Globulin 3.5 Albumin/Globulin Ratio 1.1 Attending/Attestation - Attestation I have personally seen and examined this patient.: Yes I have fully participated in the care of the patient.: Yes I have reviewed all pertinent clinical information: Yes Notes (Text): This is an addendum to GI consult report dictated by the GI Fellow.The patient was seen and examined earlier. Medical records, lab studies, imagings were reviewed. Last 24 hours events reviewed. Agreed with the above treatment plan as outlined in GI Fellow 's notes with the addition of the following This patient's previous GI workup was reviewed I also discussed with the patient's oncologist Dr. Crisostomo history of breast cancer status post mastectomy, radiation and chemo before On examination abdomen soft nontender Previous imaging studies reviewed patient would benefit from upper GI endoscopy Would consider further workup including esophagogram and a repeat CT with contrast The problem appears to be multifactorial Discussed with Dr. Ca 09/10/18 19:32
[2018-09-10] MEDS ORDERED: Dextrose 5%/0.45% NS 1,000 ML IV SCH (13:45)
[2018-09-10] MEDS ORDERED: Propofol 10 mg/ml Inj (20 ML) ONE (16:37)
[2018-09-10] MEDS ORDERED: Midazolam 2 MG/2 ML VIAL ONE (16:37)
--- NOTE | 2018-09-10 21:53 | CON ---
DATE: 09/10/2018 HISTORY OF PRESENT ILLNESS: In short, the patient is a 48-year-old [place] female with reported history of mental illness. The patient has previous admissions to the psychiatric inpatient unit back in [place] as well as here. The patient was admitted on the medical side for evaluation of difficulty to swallow. The patient has multiple medical issues including history of breast cancer. Psych consult was called for evaluation of depressive symptoms as well as the patient is on psychotropic medications. The patient was seen and examined today, discussed with staff as well as the patient's who seems to be very supportive and next to the patient. The patient's is Bhavin, phone number is [phone]. The patient gave permission to talk to him because she was not feeling so well. As per Bhavin, the patient has history of bipolar disorder. The patient has multiple hospitalizations in the past. Currently, the patient is under the care of [facility]. The patient's reported that last time they saw psychiatrist was 2 days ago. The patient is on injectable form of Abilify Maintena, last injection was 2 days ago. The patient filled her medications in [facility], which was contacted [phone]. The patient is on following medications; the patient is on Abilify 10 mg daily, Prozac 10 mg daily, Prozac was increased 2 days ago. The patient is on Seroquel 100 mg twice a day. The patient also on methotrexate, meloxicam, atenolol, famotidine, multivitamins, Ventolin, spironolactone, clindamycin, methimazole and vitamin D2, and propranolol. As per , the patient was compliant with the medications. As per , the patient had tendency whenever she decompensate, she would be more religiously preoccupied. At times, the patient could eat her feces, such behavior was observed for past week. PHYSICAL EXAMINATION: VITAL SIGNS: Temperature 98, pulse is 80, blood pressure 109/65, respirations 12, and oxygen saturation is 100. MENTAL STATUS EXAMINATION: The patient presented to be depressed, very dark circles under her eyes. The patient was moving back and forth movement while interviewing with this blurb writer. Mood described as not good. Affect was constricted to flat. Thought process disorganized. Thought content, the patient denied hearing voices, but appears to be internally preoccupied as per patient's . The patient was more religiously preoccupied as well as the patient was observed eating her own feces. Insight and judgment seems to be limited. Impulses are well controlled so far. MEDICATIONS: Reviewed. The patient is on Abilify 20 mg daily, but we will decrease the dose because the patient got injectable form of Abilify, which was given to the patient 2 days ago. The patient also is on Prozac, which will be increased to 30 mg daily because this is patient's most recent dose of medication. The patient also is on Seroquel, which will be increased to 100 mg at the morning time and 200 mg at the nighttime. The patient was on 100 mg twice a day. On top of that, the patient is on spironolactone. PAST PSYCHIATRIC HISTORY: The patient was admitted to [facility] 6 months ago. The patient stayed in the hospital for one month. PLAN: Medications were confirmed with [facility]. The patient was seen and examined based on the patient's medications. The patient is on Abilify Maintena, last dose was 2 days ago. All medications confirmed and resumed. Seroquel was increased to 200 mg at the nighttime and continue 100 mg at the morning time. Collaterals were obtained from the patient's family. We will follow up and advise accordingly. Most likely, the patient requires further hospitalization to the psychiatric inpatient unit, but at the same time, this blurb writer cannot exclude that the patient will be improving if her medical condition will be improving. Case discussed with Dr. Ca, primary care physician. Should you have any questions, give me a call back. Thank you very much for letting me to participate in the care of your patient. Carolyn Ross MD MARIAN
[2018-09-11] MEDS: Levothyroxine 125 MCG TAB PO SCH (06:00)
[2018-09-11] MEDS: Sodium Chloride 0.9% 1,000 ML IV SCH ×2 (06:00→22:45)
[2018-09-11] MEDS ORDERED: Barium Sulfate Susp 2.1% w/v, 2.0% w/w 450 mL Bottle PO ONE (06:48)
--- NOTE | 2018-09-11 07:14 | CON ---
DATE: 09/10/2018 This is [facility] consult on the medical floor. For Dr. Crisostomo. CHIEF COMPLAINT: Dysphagia. HISTORY OF PRESENT ILLNESS: The patient is a 48-year-old Zoroast[employer]ism female admitted by the emergency room for evaluation of severe dysphagia for the past 2 days with the patient reported eating food and suddenly feeling is getting stuck in her throat with patient not eating since that time, with some liquids tolerated, but with difficulty. She reports previous events in the past with endoscopy with no significant findings. Also note that the patient suffered from breast cancer for which she was treated with radiation to the right axilla in [facility] approximately 20 years prior she reports with resultant right upper extremity lymphedema. She has had breast reconstruction with implants from 2003 in [place]. At present, the patient is status post evaluation by Dr. Bob with consideration for dilatation as this may have been radiation induced? after EGD done earlier today. ALLERGIES: VANCOMYCIN. THIS IS QUESTIONABLE ALLERGY THE PATIENT HAS RECEIVED VANCOMYCIN IN 09/2017 WITH NO ILL EFFECT. MEDICATIONS: Her medications at present include Abilify, Aldactone, Ativan, Cogentin, folic acid, hydrocodone. FAMILY HISTORY AND SOCIAL HISTORY: The patient is a nonsmoker, non-ethanolic. Lives with her and takes medications from [place] and [facility] and substitutes medicine here in the [place] for similar medications. PAST MEDICAL HISTORY: As above, chronic lymphedema of the right upper extremity, chemotherapy radiation for breast cancer, status post mastectomy with TRAM flap reconstruction in 2012 [place], implants for breast in 2003 in [place], treated with tamoxifen for approximately 5 years' time. The patient also suffers from depression, obesity, hypothyroidism, cellulitis of the right arm in 2016. REVIEW OF SYSTEMS: Twelve-point review of systems was done, which was negative to questioning except for items as mentioned in the history of present illness. OBJECTIVE/PHYSICAL EXAMINATION: VITAL SIGNS: Temperature 97.5, pulse 77, respirations 18, blood pressure 104/68, pulse ox 100%. HEENT: Unremarkable. Tongue is dry. NECK: Supple. HEART: Regular rate. LUNGS: Clear. ABDOMEN: Soft, obese, nontender. EXTREMITIES: +2 edema of the right upper extremity of chronic nature, otherwise negative. NEUROLOGIC: Awake, alert. SKIN: Warm and dry. LABORATORY DATA: The patient's labs were done. White blood cell count of 4.8, hemoglobin of 12.3, hematocrit of 37.9, platelet count 263,000. Her INR is 0.99 with a chem panel completely within normal range except an ALT of 57. The patient did have a CAT scan soft tissue of the neck done yesterday. It was read as no evidence of foreign body in the cervical, esophagus or oropharynx. Chest x-ray was done yesterday, it was read as no active disease. The patient did have an EGD with biopsy done earlier today for diagnosis of dysphagia. The postop diagnosis was rule out celiac, rule out H. pylori, rule out eosinophilic esophagitis, gastritis, and tortuous esophagus. ASSESSMENT: New onset dysphagia. Consideration for stricture. History of breast cancer, lymphedema of right upper extremity, depression, breast cancer [id number] ER/OR negative, HER2 negative ductal carcinoma, hypothyroidism, history of anemia and obesity. PLAN: Plan for this patient after conversation with Dr. Crisostomo is to continue present medical regimen as per Dr. Ca with consideration for dilatation as this may be a sequelae of her [place] treatment for her cancer years ago. The patient is a complex patient with a comprehensive medically necessary and appropriate visit carried out in excess of 40 minutes with the patient's questions answered to her satisfaction. Collin Borges MD
[2018-09-11 07:42] LABS: BASO # 0.01 K/mm3 (0.0-2.0); BASO % 0.2 % (0.0-3.0); EOS # 0.1 (0.0-0.7); EOS % 1.3 % (1.5-5.0); GRAN # 2.07 (1.4-6.5); GRAN % 45.2 % (50.0-68.0); HEMOGLOBIN 11.9 g/dL (12.0-16.0); LYMPH % 43.7 % (22.0-35.0); MEAN CELL VOLUME 87.6 fl (80.0-105.0); MEAN CORPUSCULAR HEMOGLOBIN 27.9 pg (25.0-35.0); MEAN CORPUSCULAR HGB CONC 31.9 g/dl (31.0-37.0); MEAN PLATELET VOLUME 9.8 fl (7.0-11.0); MONO # 0.4 (0.1-0.6); MONO % 9.6 % (1.0-6.0); RBC 4.26 10^6/uL (3.5-6.1); RED CELL DISTRIBUTION WIDTH 16.2 % (11.5-14.5); WHITE BLOOD COUNT 4.6 10^3/uL (4.5-11.0)
[2018-09-11 07:57] LABS: ALB/GLOB RATIO 1.1 (1.1-1.8); ALBUMIN 3.6 g/dL (3.0-4.8); ALT/SGPT 43 U/L (7-56); AST/SGOT 31 U/L (14-36); BLOOD UREA NITROGEN 13 mg/dL (7-21); CALCIUM 8.6 mg/dL (8.4-10.5); GFR NON-AFRICAN AMERICAN 59
[2018-09-11] MEDS ORDERED: Iohexol 350 MG/100 ML VIAL ONE (10:14)
[2018-09-11] MEDS ORDERED: Barium Sulfate for Susp 98% w/w 340g Bottle ONE (10:46)
--- NOTE | 2018-09-11 11:54 | RAD ---
Date of service: 09/11/2018 HISTORY: Dysphagia. COMPARISON: None. TECHNIQUE: Single contrast esophagram was performed. FINDINGS: Patient tolerated procedure well. ESOPHAGUS: Esophageal mucosa appeared preserved. No evidence of stricture or mass lesion. HIATAL HERNIA: None demonstrated. GASTROESOPHAGEAL REFLUX: Not demonstrated. OTHER FINDINGS: None. IMPRESSION: Unremarkable esophagram.
--- NOTE | 2018-09-11 12:13 | CT ---
Date of service: 09/11/2018 PROCEDURE: CT Chest, Abdomen and Pelvis with intravenous contrast HISTORY: dysphagia, weight loss, history breast cancer COMPARISON: None available. TECHNIQUE: IV dose administered: 100 cc of Omni 350 Radiation dose: Total exam DLP = 483.1 mGy-cm. This CT exam was performed using one or more of the following dose reduction techniques: Automated exposure control, adjustment of the mA and/or kV according to patient size, and/or use of iterative reconstruction technique. FINDINGS: CT CHEST WITH CONTRAST: LUNGS: Clear. No nodule, mass or consolidation. MEDIASTINUM: Unremarkable. Normal caliber aorta and pulmonary arterial trunk. No aortic dissection. Normal size heart. LYMPH NODES: Unremarkable. PLEURA: Unremarkable. No pneumothorax. No pleural fluid. BONES: Unremarkable. OTHER FINDINGS: There is an area of fatty necrosis in the right breast with multiple calcifications CT ABDOMEN AND PELVIS: LIVER: Unremarkable. No gross lesion or ductal dilatation. GALLBLADDER AND BILE DUCTS: Unremarkable. PANCREAS: Unremarkable. No gross lesion or ductal dilatation. SPLEEN: Unremarkable. ADRENALS: Unremarkable. No mass. KIDNEYS AND URETERS: Unremarkable. No hydronephrosis. No solid mass. VASCULATURE: No aortic atherosclerotic calcification or mural plaque present. Unremarkable. No aortic aneurysm. BOWEL: Unremarkable. No obstruction. No gross mural thickening. APPENDIX: Normal appendix. PERITONEUM: Unremarkable. No free fluid. No free air. LYMPH NODES: Unremarkable. No enlarged lymph nodes. BLADDER: Unremarkable. REPRODUCTIVE: Unremarkable. BONES: No acute fracture. OTHER FINDINGS: None. IMPRESSION: No acute intrathoracic or intra-abdominal findings.
--- NOTE | 2018-09-11 14:12 | HP ---
DATE OF EXAM: 09/10/2018 The patient was brought in because of difficult swallowing. HISTORY OF PRESENT ILLNESS: This is a 48-year-old female with psychotic history, schizophrenia. She has been on medication for years and she came in because of recurrent symptoms of dysphagia. She had endoscopy before by GI, maybe a year ago and colonoscopy. Today, she was brought in because of dysphagia and persistent symptoms. She also noted by the family that due to her worsening psych symptoms, she is eating feces one time. She was [facility] and also noted on the day of admission on the floor she had similar episodes with that. The patient otherwise has no other complaints. PAST MEDICAL HISTORY: As above, psychotic symptoms, schizophrenia, hypothyroidism, iron-deficiency anemia, longstanding history of psychosis, breast CA treated with outside wedge resection, chronic osteoarthritis and obesity. MEDICATIONS AT HOME: She takes levothyroxine 137, vitamin D, Cogentin 1 mg b.i.d., senna, laxative, methotrexate for rheumatoid arthritis 2.5 mg daily, Abilify 20 mg p.o. daily, iron pills, folic acid, Seroquel 50 p.o. daily, omeprazole 40 once a day, Dyazide 1 a day, Inderal 10 mg p.o. daily, calcium 1 a day, Neurontin 300 p.o. daily, fluoxetine, she takes 30 mg p.o. daily. ALLERGIES: SHE IS ALLERGIC TO VANCOMYCIN. SOCIAL HISTORY: She lives with her , children. No smoking. No drinking. REVIEW OF SYSTEMS: As in the present illness. PHYSICAL EXAMINATION: VITAL SIGNS: Temperature 98, heart rate 80, blood pressure 109/65, respirations 12, saturation 90% on 3 liters. HEAD AND NECK: Normal. No JVD. No thyromegaly. CHEST: Clear bilaterally. CARDIAC: First sound and second sound normal. ABDOMEN: Soft, nontender. EXTREMITIES: No edema. NEUROLOGIC: Normal. LABORATORY DATA: White count 4.8, hemoglobin 12.3, hematocrit 37.9, platelets 363,000. Sodium 140, potassium 3.6, chloride 107, bicarb 23, BUN 19, creatinine 1. Liver function test noted for ALT 57, otherwise normal. The patient also had a chest x-ray done with no active pulmonary disease. She has a soft neck x-ray done in emergency room. Soft tissue CT, which is reported negative. IMPRESSION AND PLAN: She is a 48-year-old female with significant psychosis and came in with dysphagia. We will admit the patient for observation. 1. Dysphagia, GI consult with Dr. Bob. Keep the patient n.p.o. 2. Severe psychosis. We will discuss with the neuro consult Dr. Ross, Dr. Leon. We will continue management with her meds. We will follow up clinically. Igor Ca MD
--- NOTE | 2018-09-11 14:22 | CP.PCM.PN ---
<Stacy Colbert - Last Filed: 09/11/18 14:22> Subjective - Date & Time of Evaluation Date of Evaluation: 09/11/18 Time of Evaluation: 14:20 - Subjective Subjective: Gastroenterology Fellow/PGY6 Progress Note Patient tolerating clear liquid diet. Denies abdominal pain. No bowel movement yesterday. A 12-point review of systems negative except for as above. Objective - Vital Signs/Intake and Output Vital Signs (last 24 hours): Temp Pulse Resp BP Pulse Ox 97.8 F 80 18 107/60 97 09/11/18 07:00 09/11/18 07:00 09/11/18 07:00 09/11/18 07:00 09/11/18 07:00 Intake and Output: 09/11/18 09/11/18 06:59 18:59 Intake Total 700 Balance 700 - Medications Medications: Current Medications Aripiprazole (Abilify) 10 mg PO DAILY [facility] Last Admin: 09/11/18 09:57 Dose: 10 mg Benztropine Mesylate (Cogentin) 1 mg PO BID [facility] Last Admin: 09/11/18 09:58 Dose: 1 mg Fluoxetine HCl (Prozac) 30 mg PO DAILY [facility] Last Admin: 09/11/18 09:58 Dose: 30 mg Folic Acid (Folic Acid) 1 mg PO DAILY [facility] Last Admin: 09/11/18 09:56 Dose: 1 mg Gabapentin (Neurontin) 300 mg PO DAILY [facility]; Protocol Last Admin: 09/11/18 09:57 Dose: 300 mg Hydrochlorothiazide (Hydrodiuril) 25 mg PO DAILY [facility] Last Admin: 09/11/18 09:57 Dose: 25 mg Dextrose/Sodium Chloride (Dextrose 5%/0.45% Ns 1000 Ml) 1,000 mls @ 75 mls/hr IV .[id number] [facility] Last Admin: 09/10/18 14:02 Dose: 75 mls/hr Sodium Chloride (Sodium Chloride 0.9%) 1,000 mls @ 100 mls/hr IV .Q10H [facility] Last Admin: 09/11/18 06:00 Dose: 100 mls/hr Levothyroxine Sodium (Synthroid) 125 mcg PO 0600 [facility] Last Admin: 09/11/18 06:00 Dose: 125 mcg Propranolol HCl (Inderal) 10 mg PO DAILY [facility] Last Admin: 09/11/18 09:57 Dose: 10 mg Quetiapine Fumarate (Seroquel) 200 mg PO HS DAT; Protocol Last Admin: 09/10/18 21:33 Dose: 200 mg Quetiapine Fumarate (Seroquel) 100 mg PO DAILY [facility] Last Admin: 09/11/18 09:57 Dose: 100 mg Quetiapine Fumarate (Seroquel) 50 mg PO 1500 DAT; Protocol Spironolactone (Aldactone) 25 mg PO DAILY DAT Last Admin: 09/11/18 09:58 Dose: 25 mg - Labs Labs: 09/11/18 07:00 09/11/18 07:00 PT 11.3 SECONDS (9.4-12.5) 09/09/18 17:21 INR 0.99 09/09/18 17:21 APTT 26.3 Seconds (25.1-36.5) 09/09/18 17:21 - Constitutional Appears: Non-toxic, No Acute Distress - Head Exam Head Exam: ATRAUMATIC, NORMOCEPHALIC - Eye Exam Eye Exam: EOMI, PERRL. absent: Scleral icterus Pupil Exam: PERRL. absent: Miosis, Mydriatic - ENT Exam ENT Exam: Mucous Membranes Moist, Normal Oropharynx - Neck Exam Neck Exam: Full ROM, Normal Inspection - Respiratory Exam Respiratory Exam: Clear to Ausculation Bilateral. absent: Rales, Rhonchi, Wheezes - Cardiovascular Exam Cardiovascular Exam: RRR, +S1, +S2. absent: Gallop, Rubs - GI/Abdominal Exam GI & Abdominal Exam: Soft, Normal Bowel Sounds. absent: Firm, Guarding, Rigid, Tenderness, Organomegaly - Extremities Exam Extremities Exam: Normal Inspection. absent: Pedal Edema - Neurological Exam Neurological Exam: Alert, Awake - Psychiatric Exam Psychiatric exam: Normal Affect, Normal Mood - Skin Skin Exam: Dry, Intact, Normal Color, Warm Assessment and Plan - Assessment and Plan (Free Text) Assessment: 48 year old female with PMH of Stage III Right Breast Cancer s/p right mastectomy with chemoradiation in 2003 and right breast reconstruction 2012, and chronic right arm lymphedema presenting with difficulty swallowing. Active treatment of progressive dysphagia to solids and liquids. Modified barium swallow 01/2018 showed no signs of aspiration. EGD 03/2018 to evaluate dysphagia showed mild upper/mid-esophagitis without Osborne's or eosinophilic esophagitis. EGD 07/2016 to evaluate iron deficiency anemia showed H. pylori negative gastritis. Colonoscopy 07/2016 showed a 1cm ascending inflammatory polyp and internal hemorrhoids. Plan: -POD1 (09/10) EGD -tortuous esophagus, decreases esophageal compliance, gastritis, flattening of duodenal mucosa -pathology pending -concern for underlying dysmotility- possible radiation induced -follow up CT C/A/P to rule out underlying pathology -follow up esophagram -clear liquid diet as tolerated -supportive care -speech therapy evaluation -will follow clinical course <Tan Bob V - Last Filed: 09/12/18 00:06> Objective - Vital Signs/Intake and Output Vital Signs (last 24 hours): Temp Pulse Resp BP Pulse Ox 98.6 F 120 H 21 119/77 98 09/11/18 23:12 09/11/18 23:12 09/11/18 23:12 09/11/18 23:12 09/11/18 23:12 - Medications Medications: Current Medications Aripiprazole (Abilify) 10 mg PO DAILY [facility] Last Admin: 09/11/18 09:57 Dose: 10 mg Benztropine Mesylate (Cogentin) 1 mg PO BID [facility] Last Admin: 09/11/18 17:21 Dose: 1 mg Fluoxetine HCl (Prozac) 30 mg PO DAILY [facility] Last Admin: 09/11/18 09:58 Dose: 30 mg Folic Acid (Folic Acid) 1 mg PO DAILY [facility] Last Admin: 09/11/18 09:56 Dose: 1 mg Gabapentin (Neurontin) 300 mg PO DAILY [facility]; Protocol Last Admin: 09/11/18 09:57 Dose: 300 mg Hydrochlorothiazide (Hydrodiuril) 25 mg PO DAILY [facility] Last Admin: 09/11/18 09:57 Dose: 25 mg Dextrose/Sodium Chloride (Dextrose 5%/0.45% Ns 1000 Ml) 1,000 mls @ 75 mls/hr IV .[id number] [facility] Last Admin: 09/10/18 14:02 Dose: 75 mls/hr Sodium Chloride (Sodium Chloride 0.9%) 1,000 mls @ 100 mls/hr IV .Q10H [facility] Last Admin: 09/11/18 22:45 Dose: 100 mls/hr Levothyroxine Sodium (Synthroid) 125 mcg PO 0600 [facility] Last Admin: 09/11/18 06:00 Dose: 125 mcg Propranolol HCl (Inderal) 10 mg PO DAILY [facility] Last Admin: 09/11/18 09:57 Dose: 10 mg Quetiapine Fumarate (Seroquel) 200 mg PO HS [facility]; Protocol Last Admin: 09/11/18 21:10 Dose: 200 mg Quetiapine Fumarate (Seroquel) 100 mg PO DAILY [facility] Last Admin: 09/11/18 09:57 Dose: 100 mg Quetiapine Fumarate (Seroquel) 50 mg PO 1500 [facility]; Protocol Last Admin: 09/11/18 14:23 Dose: 50 mg Spironolactone (Aldactone) 25 mg PO DAILY [facility] Last Admin: 09/11/18 09:58 Dose: 25 mg - Labs Labs: 09/11/18 07:00 09/11/18 07:00 PT 11.3 SECONDS (9.4-12.5) 09/09/18 17:21 INR 0.99 09/09/18 17:21 APTT 26.3 Seconds (25.1-36.5) 09/09/18 17:21 Attending/Attestation - Attestation I have personally seen and examined this patient.: Yes I have fully participated in the care of the patient.: Yes I have reviewed all pertinent clinical information, including history, physical exam and plan: Yes Notes (Text): This is an addendum to GI progress report dictated by the GI Fellow.The patient was seen and examined earlier. Medical records, lab studies, imagings were reviewed. Last 24 hours events reviewed. Agreed with the above treatment plan as outlined in GI Fellow 's notes with the addition of the following 09/12/18 00:06
--- NOTE | 2018-09-11 14:22 | CP.PCM.PCO ---
Addendum Addendum: 09/11/18 14:20 Refer to dictated noted [id number] for full information. Seroquel increased and patient put on 1:1 after I received VM from nursing indicating that patient was observed trying to drink her urine and talking about going to [facility]. I called unit twice, no answer the first time. The second time I was transferred and there was no answer.
--- NOTE | 2018-09-11 17:28 | CP.PCM.PN ---
<Chivo Rutledge - Last Filed: 09/11/18 17:25> Subjective - Date & Time of Evaluation Date of Evaluation: 09/11/18 Time of Evaluation: 17:25 - Subjective Subjective: Hematology/Oncology Progress Note Patient seen and assessed at bedside. No acute events were noted overnight. She reports that she hasn't had a BM in two days. She denies any other complaints at this time including fevers, chills, headache, chest pain, new SOB, cough, abdominal pain, N/V/D, changes in urine output, skin changes or any numbness/tingling of any extremity. Objective - Vital Signs/Intake and Output Vital Signs (last 24 hours): Temp Pulse Resp BP Pulse Ox 98.5 F 86 18 106/71 97 09/11/18 14:00 09/11/18 14:00 09/11/18 14:00 09/11/18 14:00 09/11/18 14:00 Intake and Output: 09/11/18 09/11/18 06:59 18:59 Intake Total 700 Balance 700 - Medications Medications: Current Medications Aripiprazole (Abilify) 10 mg PO DAILY [facility] Last Admin: 09/11/18 09:57 Dose: 10 mg Benztropine Mesylate (Cogentin) 1 mg PO BID [facility] Last Admin: 09/11/18 17:21 Dose: 1 mg Fluoxetine HCl (Prozac) 30 mg PO DAILY [facility] Last Admin: 09/11/18 09:58 Dose: 30 mg Folic Acid (Folic Acid) 1 mg PO DAILY [facility] Last Admin: 09/11/18 09:56 Dose: 1 mg Gabapentin (Neurontin) 300 mg PO DAILY [facility]; Protocol Last Admin: 09/11/18 09:57 Dose: 300 mg Hydrochlorothiazide (Hydrodiuril) 25 mg PO DAILY [facility] Last Admin: 09/11/18 09:57 Dose: 25 mg Dextrose/Sodium Chloride (Dextrose 5%/0.45% Ns 1000 Ml) 1,000 mls @ 75 mls/hr IV .[id number] [facility] Last Admin: 09/10/18 14:02 Dose: 75 mls/hr Sodium Chloride (Sodium Chloride 0.9%) 1,000 mls @ 100 mls/hr IV .Q10H [facility] Last Admin: 09/11/18 06:00 Dose: 100 mls/hr Levothyroxine Sodium (Synthroid) 125 mcg PO 0600 [facility] Last Admin: 09/11/18 06:00 Dose: 125 mcg Propranolol HCl (Inderal) 10 mg PO DAILY [facility] Last Admin: 09/11/18 09:57 Dose: 10 mg Quetiapine Fumarate (Seroquel) 200 mg PO HS [facility]; Protocol Last Admin: 09/10/18 21:33 Dose: 200 mg Quetiapine Fumarate (Seroquel) 100 mg PO DAILY [facility] Last Admin: 09/11/18 09:57 Dose: 100 mg Quetiapine Fumarate (Seroquel) 50 mg PO 1500 [facility]; Protocol Last Admin: 09/11/18 14:23 Dose: 50 mg Spironolactone (Aldactone) 25 mg PO DAILY [facility] Last Admin: 09/11/18 09:58 Dose: 25 mg - Labs Labs: 09/11/18 07:00 09/11/18 07:00 PT 11.3 SECONDS (9.4-12.5) 09/09/18 17:21 INR 0.99 09/09/18 17:21 APTT 26.3 Seconds (25.1-36.5) 09/09/18 17:21 - Additional Findings Additional findings: - Constitutional Appears: Non-toxic, No Acute Distress - Head Exam Head Exam: ATRAUMATIC, NORMOCEPHALIC - Eye Exam Eye Exam: EOMI, PERRL. absent: Scleral icterus Pupil Exam: PERRL. absent: Miosis, Mydriatic - ENT Exam ENT Exam: Mucous Membranes Moist, Normal Oropharynx - Neck Exam Neck Exam: Full ROM, Normal Inspection - Respiratory Exam Respiratory Exam: Clear to Ausculation Bilateral. absent: Rales, Rhonchi, Wheezes - Cardiovascular Exam Cardiovascular Exam: RRR, +S1, +S2. absent: Gallop, Rubs - GI/Abdominal Exam GI & Abdominal Exam: Soft, Normal Bowel Sounds. absent: Firm, Guarding, Rigid, Tenderness, Organomegaly - Extremities Exam Extremities Exam: Normal Inspection. absent: Pedal Edema - Neurological Exam Neurological Exam: Alert, Awake - Psychiatric Exam Psychiatric exam: Normal Affect, Normal Mood - Skin Skin Exam: Dry, Intact, Normal Color, Warm Assessment and Plan - Assessment and Plan (Free Text) Assessment: 48 year old female with a past medical history significant for Stage III Right Breast Cancer s/p right mastectomy with chemoradiation in 2003 and right breast reconstruction 2012, and chronic right arm lymphedema who presented with dysphagia. 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 Crisostomo Patient seen and case discussed with attending, Dr. Crisostomo. Chivo Rutledge PGY2 <Franchesca Crisostomo P - Last Filed: 09/14/18 14:24> Objective - Vital Signs/Intake and Output Vital Signs (last 24 hours): Temp Pulse Resp BP Pulse Ox 98.2 F 95 H 20 110/73 98 09/12/18 06:00 09/12/18 09:43 09/12/18 06:00 09/12/18 09:43 09/12/18 06:00 - Labs Labs: 09/12/18 07:50 09/12/18 07:50 PT 13.0 SECONDS (9.4-12.5) H 09/12/18 07:50 INR 1.13 09/12/18 07:50 APTT 26.3 Seconds (25.1-36.5) 09/09/18 17:21 Attending/Attestation - Attestation I have personally seen and examined this patient.: Yes I have fully participated in the care of the patient.: Yes I have reviewed all pertinent clinical information, including history, physical exam and plan: Yes
--- NOTE | 2018-09-11 19:54 | CON ---
DATE OF CONSULTATION: 09/11/2018 HISTORY OF PRESENT ILLNESS: The patient is a 48-year-old [place] female with a history of likely schizophrenia, has been followed by Psychiatry for evaluation of depression as well as her current medications. I reviewed Dr. Ross's notes, which indicated that her medications were restarted, which included Abilify, Seroquel, Prozac as well as Cogentin for EPS prophylaxis. The patient was noted to be disorganized, diligently preoccupied. The patient has only indicated that she has been doing well at the time of Dr. Ross's visit. However, the patient was visited at bedside and an utility operator was used for Greek and the patient indicated that she is doing better. She is cooperative with questing and indicated that it is September. At first she indicated that it was 1987 and then she corrected herself as 2017. She knows she is at [facility]. She denies any perceptual disturbances. The patient reports that she is feeling better. Her mood is improved. She appears to be catastrophizing the current situation much less since she is physically feeling better. Staff do note that the patient has been religiously preoccupied. She does not appear to be bizarre and it looks like her mentation is clearing up a little bit. Dr. Ross is not entirely sure that she requires psychiatric hospitalization, however would most definitely benefit from further stabilization once she is medically cleared. Impulses are well controlled thus far and we will manage behavioral issues on the medical floor. Vitals and labs are reviewed. Psychiatric medications include Abilify 10 mg daily, Cogentin 1 mg b.i.d., Prozac 30 mg daily, Seroquel 100 mg daily and 200 mg h.s. IMPRESSION: Likely schizoaffective disorder, bipolar by history, improving delirium. RECOMMENDATIONS: We will continue with current medications. No acute indication to change them at this time. Psychiatry will continue to follow up. Recommend psychiatric stabilization when she is ultimately medically cleared. Ese Olmedo MD
[2018-09-11 23:13] VITALS: O2SAT 98
[2018-09-12] MEDS: Levothyroxine 125 MCG TAB PO SCH (05:39)
[2018-09-12 08:02] LABS: BASO # 0.01 K/mm3 (0.0-2.0); BASO % 0.3 % (0.0-3.0); EOS % 0.9 % (1.5-5.0); GRAN # 1.51 (1.4-6.5); GRAN % 44.7 % (50.0-68.0); HEMOGLOBIN 10.9 g/dL (12.0-16.0); LYMPH # 1.4 (1.2-3.4); LYMPH % 41.4 % (22.0-35.0); MEAN CELL VOLUME 87.4 fl (80.0-105.0); MEAN CORPUSCULAR HEMOGLOBIN 28.1 pg (25.0-35.0); MEAN CORPUSCULAR HGB CONC 32.2 g/dl (31.0-37.0); MEAN PLATELET VOLUME 8.9 fl (7.0-11.0); MONO # 0.4 (0.1-0.6); MONO % 12.7 % (1.0-6.0); RBC 3.88 10^6/uL (3.5-6.1); RED CELL DISTRIBUTION WIDTH 16.3 % (11.5-14.5); WHITE BLOOD COUNT 3.4 10^3/uL (4.5-11.0)
[2018-09-12 08:03] LABS: INR 1.13
[2018-09-12 08:15] LABS: ALB/GLOB RATIO 1.1 (1.1-1.8); ALBUMIN 3.5 g/dL (3.0-4.8); ALT/SGPT 39 U/L (7-56); AST/SGOT 30 U/L (14-36); BLOOD UREA NITROGEN 7 mg/dL (7-21); CALCIUM 8.2 mg/dL (8.4-10.5); GFR NON-AFRICAN AMERICAN 59
[2018-09-12 08:45] VITALS: RESP 20; TEMP 98.2
--- NOTE | 2018-09-12 08:53 | CP.PCM.PN ---
<Stacy Colbert - Last Filed: 09/12/18 08:55> Subjective - Date & Time of Evaluation Date of Evaluation: 09/12/18 Time of Evaluation: 08:49 - Subjective Subjective: Gastroenterology Fellow/PGY6 Progress Note Patient tolerated clear liquid diet. Denies abdominal pain. No bowel movement yesterday. Expresses concern about if the imaging tests performed were okay. Nursing notes episode of agitation and anxiety overnight requiring Ativan administration. A 12-point review of systems negative except for as above. Objective - Vital Signs/Intake and Output Vital Signs (last 24 hours): Temp Pulse Resp BP Pulse Ox 98.2 F 98 H 20 107/70 98 09/12/18 06:00 09/12/18 06:00 09/12/18 06:00 09/12/18 06:00 09/12/18 06:00 - Medications Medications: Current Medications Aripiprazole (Abilify) 10 mg PO DAILY [facility] Last Admin: 09/11/18 09:57 Dose: 10 mg Benztropine Mesylate (Cogentin) 1 mg PO BID [facility] Last Admin: 09/11/18 17:21 Dose: 1 mg Fluoxetine HCl (Prozac) 30 mg PO DAILY [facility] Last Admin: 09/11/18 09:58 Dose: 30 mg Folic Acid (Folic Acid) 1 mg PO DAILY [facility] Last Admin: 09/11/18 09:56 Dose: 1 mg Gabapentin (Neurontin) 300 mg PO DAILY [facility]; Protocol Last Admin: 09/11/18 09:57 Dose: 300 mg Hydrochlorothiazide (Hydrodiuril) 25 mg PO DAILY [facility] Last Admin: 09/11/18 09:57 Dose: 25 mg Dextrose/Sodium Chloride (Dextrose 5%/0.45% Ns 1000 Ml) 1,000 mls @ 75 mls/hr IV .[id number] [facility] Last Admin: 09/10/18 14:02 Dose: 75 mls/hr Sodium Chloride (Sodium Chloride 0.9%) 1,000 mls @ 100 mls/hr IV .Q10H [facility] Last Admin: 09/11/18 22:45 Dose: 100 mls/hr Levothyroxine Sodium (Synthroid) 125 mcg PO 0600 [facility] Last Admin: 09/12/18 05:39 Dose: 125 mcg Propranolol HCl (Inderal) 10 mg PO DAILY [facility] Last Admin: 09/11/18 09:57 Dose: 10 mg Quetiapine Fumarate (Seroquel) 200 mg PO HS DAT; Protocol Last Admin: 09/11/18 21:10 Dose: 200 mg Quetiapine Fumarate (Seroquel) 100 mg PO DAILY DAT Last Admin: 09/11/18 09:57 Dose: 100 mg Quetiapine Fumarate (Seroquel) 50 mg PO 1500 [facility]; Protocol Last Admin: 09/11/18 14:23 Dose: 50 mg Spironolactone (Aldactone) 25 mg PO DAILY [facility] Last Admin: 09/11/18 09:58 Dose: 25 mg - Labs Labs: 09/12/18 07:50 09/12/18 07:50 PT 13.0 SECONDS (9.4-12.5) H 09/12/18 07:50 INR 1.13 09/12/18 07:50 APTT 26.3 Seconds (25.1-36.5) 09/09/18 17:21 - Constitutional Appears: Non-toxic, No Acute Distress - Head Exam Head Exam: ATRAUMATIC, NORMOCEPHALIC - Eye Exam Eye Exam: EOMI, PERRL. absent: Scleral icterus Pupil Exam: PERRL. absent: Miosis, Mydriatic - ENT Exam ENT Exam: Mucous Membranes Moist, Normal Oropharynx - Neck Exam Neck Exam: Full ROM, Normal Inspection - Respiratory Exam Respiratory Exam: Clear to Ausculation Bilateral. absent: Rales, Rhonchi, Wheezes - Cardiovascular Exam Cardiovascular Exam: RRR, +S1, +S2. absent: Gallop, Rubs - GI/Abdominal Exam GI & Abdominal Exam: Soft, Normal Bowel Sounds. absent: Distended, Firm, Guarding, Rigid, Tenderness, Organomegaly, Rebound - Extremities Exam Extremities Exam: Normal Inspection. absent: Pedal Edema - Neurological Exam Neurological Exam: Alert, Awake - Psychiatric Exam Psychiatric exam: Normal Affect, Normal Mood - Skin Skin Exam: Dry, Intact, Normal Color, Warm Assessment and Plan - Assessment and Plan (Free Text) Assessment: 48 year old female with PMH of Stage III Right Breast Cancer s/p right mastectomy with chemoradiation in 2003 and right breast reconstruction 2012, and chronic right arm lymphedema presenting with difficulty swallowing. Active tr eatment of dysphagia POD2 (09/10) EGD showing tortuous esophagus, decreases esophageal compliance, gastritis, and flattening of duodenal mucosa with pathology pending. Modified barium swallow 01/2018 showed no signs of aspiration. EGD 03/2018 to evaluate dysphagia showed mild upper/mid-esophagitis without Osborne's or eosinophilic esophagitis. EGD 07/2016 to evaluate iron deficiency anemia showed H. pylori negative gastritis. Colonoscopy 07/2016 showed a 1cm ascending inflammatory polyp and internal hemorrhoids. Plan: -pending EGD pathology -differential- possible radiation induced dysmotility -CT C/A/P PO/IV contrast-no underlying pathology -esophagram- preserved mucosa, without stricture or mass, -contrast follows course of tortuosity noted during endoscopy -pending speech therapy evaluation -psych managing-follow up recommendations -follow up speech therapy evaluation -monitor calorie count on puree diet -will follow clinical course <Tan Bob V - Last Filed: 09/13/18 00:01> Objective - Vital Signs/Intake and Output Vital Signs (last 24 hours): Temp Pulse Resp BP Pulse Ox 98.2 F 95 H 20 110/73 98 09/12/18 06:00 09/12/18 09:43 09/12/18 06:00 09/12/18 09:43 09/12/18 06:00 - Labs Labs: 09/12/18 07:50 09/12/18 07:50 PT 13.0 SECONDS (9.4-12.5) H 09/12/18 07:50 INR 1.13 09/12/18 07:50 APTT 26.3 Seconds (25.1-36.5) 09/09/18 17:21 Attending/Attestation - Attestation I have personally seen and examined this patient.: Yes I have fully participated in the care of the patient.: Yes I have reviewed all pertinent clinical information, including history, physical exam and plan: Yes Notes (Text): This is an addendum to GI progress report dictated by the GI Fellow.The patient was seen and examined earlier. Medical records, lab studies, imagings were reviewed. Last 24 hours events reviewed. Agreed with the above treatment plan as outlined in GI Fellow 's notes with the addition of the following 09/13/18 00:01
[2018-09-12 09:51] VITALS: BP 110/73; PULSE 95
--- NOTE | 2018-09-12 11:23 | PN ---
DATE: 09/12/2018 SUBJECTIVE: The patient is lying in the bed. She mentions that she has problems and she has to eat her feces and drink her urine, otherwise she will get punished and she will go to hell. That is the way she talks and feeling about that. She did try that one time, and later on day of evaluations, I was called, she did try it again. She is currently on Abilify, which has been increased and Seroquel, but otherwise physically patient does not have any distress. PHYSICAL EXAMINATION: VITAL SIGNS: Temperature is 98.5, heart rate is 86, blood pressure 106/71, respirations 18, sat 97%. HEAD AND NECK: Normal. No JVD. No thyromegaly. CHEST: Clear bilaterally. CARDIAC: First sound and second sound normal. ABDOMEN: Soft, nontender. EXTREMITIES: No edema. NEUROLOGIC: Normal. LABORATORY STUDIES: Show white count 4.6, hemoglobin 11.9, hematocrit 37.3, platelets 342,000. Chemistry: Sodium 141, potassium 3.7, chloride 112, bicarb 21, BUN is 13, creatinine 1. Liver function test is normal and her sugar was kind of low at 66. Her PT and PTT was normal. IMPRESSION: 1. Psychosis or history of schizophrenia. Continue current therapy, Abilify and Seroquel, we will increase the dose. Follow up with the psychiatrist. Patient was put 1:1, so she just when happening. 2. Patient has a history of hypertension. Continue hydrochlorothiazide; Inderal, she is taking 10 mg once a day, we will increase that to 3 times a day if continued to be tachycardic. We will monitor her heart rate, but continue current therapy for now. 3. History of breast carcinoma, has been treated with radiation and chemo. 4. Hypothyroidism. Continue Synthroid. PLAN: Continue current therapy, follow up clinically and continue IV fluids and patient will need psychiatric admissions after GI since she has evaluations. Igor Ca MD
[2018-09-12] MEDS ORDERED: Potassium Chloride 20 mEq ER Tab PO ONE (13:10)
--- NOTE | 2018-09-12 15:04 | CP.PCM.PN ---
<Chivo Rutledge - Last Filed: 09/12/18 15:01> Subjective - Date & Time of Evaluation Date of Evaluation: 09/12/18 Time of Evaluation: 15:02 - Subjective Subjective: Hematology/Oncology Progress Note Patient seen and assessed at bedside with 1:1 present at bedside. No acute events were noted overnight. Patient denies any complaints at this time including fevers, chills, headache, chest pain, new SOB, cough, abdominal pain, N/V/D, changes in urine output, skin changes or any numbness/tingling of any extremity. Objective - Vital Signs/Intake and Output Vital Signs (last 24 hours): Temp Pulse Resp BP Pulse Ox 98.2 F 95 H 20 110/73 98 09/12/18 06:00 09/12/18 09:43 09/12/18 06:00 09/12/18 09:43 09/12/18 06:00 - Labs Labs: 09/12/18 07:50 09/12/18 07:50 PT 13.0 SECONDS (9.4-12.5) H 09/12/18 07:50 INR 1.13 09/12/18 07:50 APTT 26.3 Seconds (25.1-36.5) 09/09/18 17:21 - Additional Findings Additional findings: - Constitutional Appears: Non-toxic, No Acute Distress - Head Exam Head Exam: ATRAUMATIC, NORMOCEPHALIC - Eye Exam Eye Exam: EOMI, PERRL. absent: Scleral icterus Pupil Exam: PERRL. absent: Miosis, Mydriatic - ENT Exam ENT Exam: Mucous Membranes Moist, Normal Oropharynx - Neck Exam Neck Exam: Full ROM, Normal Inspection - Respiratory Exam Respiratory Exam: Clear to Ausculation Bilateral. absent: Rales, Rhonchi, Wheezes - Cardiovascular Exam Cardiovascular Exam: RRR, +S1, +S2. absent: Gallop, Rubs - GI/Abdominal Exam GI & Abdominal Exam: Soft, Normal Bowel Sounds. absent: Firm, Guarding, Rigid, Tenderness, Organomegaly - Extremities Exam Extremities Exam: Normal Inspection. absent: Pedal Edema - Neurological Exam Neurological Exam: Alert, Awake - Psychiatric Exam Psychiatric exam: Normal Affect, Normal Mood - Skin Skin Exam: Dry, Intact, Normal Color, Warm Assessment and Plan - Assessment and Plan (Free Text) Assessment: 48 year old female with a past medical history significant for Stage III Right Breast Cancer s/p right mastectomy with chemoradiation in 2003 and right breast reconstruction 2012, and chronic right arm lymphedema who presented with dysphagia Plan: -EGD done on 09/10 showed tortuous esophagus, decreases esophageal compliance, gastritis, and flattening of duodenal mucosa -CT Chest/Abdomen/Pelvis showed no acute intrathoracic or intraabdominal pathology -CT Neck Soft Tissue w/o contrast was unremarkable -Esophagogram was unremarkable -CLD as tolerated -Continue further management as per Primary and GI teams -Further recommendations as per Dr. Crisostomo Disposition: Patient to be transferred to [facility] today (09/12). Patient seen and case discussed with attending, Dr. Crisostomo. Chivo Rutledge PGY2 <Franchesca Crisostomo - Last Filed: 09/14/18 13:01> Objective - Vital Signs/Intake and Output Vital Signs (last 24 hours): Temp Pulse Resp BP Pulse Ox 98.2 F 95 H 20 110/73 98 09/12/18 06:00 09/12/18 09:43 09/12/18 06:00 09/12/18 09:43 09/12/18 06:00 - Labs Labs: 09/12/18 07:50 09/12/18 07:50 PT 13.0 SECONDS (9.4-12.5) H 09/12/18 07:50 INR 1.13 09/12/18 07:50 APTT 26.3 Seconds (25.1-36.5) 09/09/18 17:21 Attending/Attestation - Attestation I have personally seen and examined this patient.: Yes I have fully participated in the care of the patient.: Yes I have reviewed all pertinent clinical information, including history, physical exam and plan: Yes
--- NOTE | 2018-09-12 16:06 | CON ---
DATE: 09/12/2018 HISTORY OF PRESENT ILLNESS: The patient is a 48-year-old [place] female with a history of schizophrenia, who has been followed by Psychiatry for symptoms of depression and psychosis while she is being medically optimized on the medical side. I have reviewed Dr. Ross's notes and have met with the patient at bedside both yesterday and today and spoken with Nursing regarding patient's behavior. The patient has been showing some improvement in the last few days, specifically in her ability to communicate coherently in a goal-directed manner regarding her needs. However, her behavior is unpredictable and this is a concern as she has somewhat presented fairly stable during my interview with her yesterday morning. Apparently, the patient had gone to the bathroom a few hours after I had visited with her and attempted to drink urine out of the toilet and required a one-to-one thereafter. I spoke with her at bedside this morning and I asked her about this behavior and the patient admits that this was her goal and she indicated she was trying to punish herself. Illogically, she indicates that she was punishing herself because she is eating too much; however, she cannot really elaborate further regarding this reason. The patient further indicated that the God is punishing her and she is very depressed; however, presently she does not feel like wanting to kill herself, but does admit to having these thoughts in the past. She indicated that she does when she is tired and stressed and then she begins talking about being afraid of end of days. The patient is notably relatively preoccupied and appears to be more disorganized and illogical during today's interview and I suspect that there is a component of delirium, but she clearly does have a history of schizophrenia. She is tolerating her current psychiatric medications well. Denies any side effects from them and she is oriented to month, year and location. Vitals and labs were reviewed by this provider. The patient is agreeable to increase her Prozac to treat her depression. IMPRESSION: Schizoaffective disorder with some improvement in delirium, though still symptomatic. RECOMMENDATIONS: We will increase Prozac to 30 mg daily. Continue with psychiatric medications of Abilify and Seroquel, which are at doses of 100 mg daily, 200 mg at bedtime, and 50 mg at q.p.m. as well as mg daily, respectively. We will also continue Cogentin 1 mg daily. Psychiatry will continue to follow up with the patient on the medical floor is being medically optimized. At this time, the patient appears to be superficially agreeable to be transferred to the psychiatric unit once she is medically cleared and that is something I strongly recommend as she remains unpredictable. Please continue one-to-one as I mentioned she is unpredictable. Ese Olmedo MD
--- NOTE | 2018-09-13 13:57 | DS ---
HISTORY OF PRESENT ILLNESS: Patient came in with dysphagia and psychotic symptoms, patient is noncompliant with her psych medications. PHYSICAL EXAMINATION: On the day of discharge as follows: VITAL SIGNS: Temperature 98.2, heart rate 98, blood pressure 119/77, respirations 21, saturation 98% on room air. HEAD AND NECK: Normal. No JVD, no thyromegaly. CHEST: Clear bilaterally. CARDIAC: First sound and second sound normal. No murmur, rub or gallop. ABDOMEN: Soft, nontender. EXTREMITIES: No edema. NEUROLOGIC: Normal. LABORATORY STUDIES: White count 3.4, hemoglobin 10.9, hematocrit 33.9, platelets 317,000. PT 13, INR 1.13. Chemistry shows sodium 142, potassium is 3.4, chloride 112, bicarb 22, BUN 7 and creatinine 1. Liver function test is normal. HOSPITAL COURSE: Patient has psychiatric evaluations, which gives the patient antipsychotic therapy because patient tried eating her feces and drinking her urine. Features of psychotic symptoms of going to go to [facility] if she does not do that, so she was given Abilify, she was given Cogentin and Seroquel 200 every night. It seems helping some how, but she needs more psych admissions. Patient also has seen by Dr. Bob who did the EGD. She does have of the esophagus, we may need to do further workup. Patient also had CT of the abdomen and pelvis and chest, which shows no acute intrathoracic or intraabdominal findings. Patient will be transferred and follows up as an outpatient for her dysphagia, but at this time, we will discharge her to psych floor. DISCHARGE DIAGNOSES: 1. Schizophrenia with severe symptoms. 2. Dysphagia. 3. Anemia. 4. Hypothyroidism. 5. Overweight. PLAN: Plan is to send the patient to psych floor, seen by Dr. Leon, will be admitted and followed up over there. Igor Ca MD
== END 2018-09-12 14:49 | DRG 750 ==
LOC: ED 13:21 → ERH 17:27 → 5RNO 20:41 → OBSVTOIN 09-11 12:00
PROVIDERS: ADMIT Internal Medicine; ATTEND Internal Medicine
PROC: 0DB68ZX Excision of Stomach, Via Natural or Artificial Opening Endoscopic, Diagnostic (ICD-10-PCS; 2018-09-10)
PROC: 0DB58ZX Excision of Esophagus, Via Natural or Artificial Opening Endoscopic, Diagnostic (ICD-10-PCS; 2018-09-10)
PROC: 0DB98ZX Excision of Duodenum, Via Natural or Artificial Opening Endoscopic, Diagnostic (ICD-10-PCS; principal; 2018-09-10 15:00)
DX: F20.9 Schizophrenia, unspecified (principal); Z94.4 Liver transplant status; R13.10 Dysphagia, unspecified; Z91.19 Patient's noncompliance with other medical treatment and regimen; I10 Essential (primary) hypertension; D64.9 Anemia, unspecified; E03.9 Hypothyroidism, unspecified; E66.3 Overweight; K29.50 Unspecified chronic gastritis without bleeding; F31.9 Bipolar disorder, unspecified; F41.9 Anxiety disorder, unspecified; I89.0 Lymphedema, not elsewhere classified; M06.9 Rheumatoid arthritis, unspecified; Z79.899 Other long term (current) drug therapy; Z85.3 Personal history of malignant neoplasm of breast; Z90.11 Acquired absence of right breast and nipple; Z92.21 Personal history of antineoplastic chemotherapy; Z92.3 Personal history of irradiation; Z98.891 History of uterine scar from previous surgery; Z68.29 Body mass index [BMI] 29.0-29.9, adult

== ENCOUNTER 2018-09-12 14:49 | Inpatient (IN) | payer MEDICAID ==
--- NOTE | 2018-09-12 16:30 | PCM.BM ---
<Nabil Mullen - Last Filed: 09/12/18 16:27> Treatment Plan Problems - Problems identified on initial assessmt DELUSIONS Date Initiated: 09/12/18 (NEEDS TO PUNISH HERSELF ) Time Initiated: 16:27 Assessment reference: HP, NA, Other Status: Active THOUGHT PROCESS ALTERATION Date Initiated: 09/12/18 (COPROPHAGIA) Time Initiated: 16:28 Assessment reference: HP, NA Status: Active ALTERATION IN EMOTIONAL STATUS Date Initiated: 09/12/18 Time Initiated: 16:29 Assessment reference: HP, Other Status: Active Treatment assets and liabiliti Patient Assests: adapts well, good support system, strong justin Patient Liabilities: medical problems, other (CHRONOC CHARACTER OF THE PROBLEM ) - Milieu Protocol Maintain good personal hygiene: daily Encourage regular showers, daily Remind patient to perform daily oral care, daily Assist patient to perform ADL's Maintain personal safety: daily Educate patient to report safety concerns to staff, daily Monitor environment for contraband/sharps Medication safety: Monitor for expected outcome, potential side effects: daily, Assess barriers to learning: daily, Assess readiness for medication education: daily Discharge/Continuing Care - Education Needs Education Needs: Patient Medication, Patient Diagnosis/Disease Process, Patient Placement options, Patient Community resources, Patient Activities of Daily Living, Patient Health Practices/Safety, Patient Personal Hygiene/Grooming, Patient Aftercare Safety Plan - Discharge Discharge Criteria: Tolerates medication w/o severe side effects, Free of Suicidal thoughts, Normal sleep pattern, Other Discharge to:: Home <Ese Olmedo - Last Filed: 09/13/18 09:44> - Diagnosis (1) Schizoaffective disorder Status: Acute Interventions: group, milieu and supportive tx Seroquel 100 mg AM, 50 mg po qPM and 200 mg po HS and abilify 10 mg po daily for disorganization, delusions, rastafari preoccupation Prozac 30 mg daily for depression and anxiety Ativan 0.5 mg po AMHS started for anxiety Abilify Maintenna was provided to patient on 09/08/18 Haldol 3 mg + Ativan 1 mg q6 prn: agitation, will c/w 1:1 09/13/18 09:44 <Evie Rodriguez - Last Filed: 09/15/18 16:16> Family Contact Family involvement: Patient does not wish Family/SO involvement - Outside Agency [facility] Care involvment: Information-sharing Agency contact name: [facility] Agency contact number: [phone] <Mirian Costa - Last Filed: 09/18/18 11:13> Family Contact - Outside Agency [facility] Care involvment: Information-sharing Agency contact name: [facility] Agency contact number: [phone] [facility] Care involvment: Information-sharing Agency contact name: [facility] Agency contact number: [phone]
[2018-09-13] MEDS: Levothyroxine 125 MCG TAB PO SCH (06:34)
[2018-09-13] MEDS ORDERED: FLUoxetine Elix 20 MG/5 ML PO SCH (08:00)
--- NOTE | 2018-09-13 09:43 | PCM.PSYCH ---
Initial Psychiatric Evaluation - Initial Psychiatric Evaluation Type of Admission: Voluntary Legal Status: Capacity History of Present Illness and Precipitating Events: Patient is a 48-year-old [place] female with a psychiatric history of Schizoaffective disorder, multiple prior psychiatric admissions both in [place] and the [place]~ most recently hospitalized at [facility] [place] x6 months ago, who was transferred from the medical floor yesterday after being treated from 09/10/18-09/12/18 for dysphagia. Patient was consulted by Dr. Ross on September 10 as well as this provider on September 11 and for symptoms of depression, disorganization, paranoia, holiness preoccupation as well as bizarre behavior. On the medical floor patient required 1:1 because she was caught drinking her urine out of the toilet. Patient was trying to punish herself because she didn't deserve to live. Patient attends outpatient psychiatric treatment of [facility] [place]. Her most recent follow up was on September 08, 2018. Patient has been compliant with Abilify 10 mg daily, Prozac 10 mg daily Seroquel 100 mg BID as well as Abilify Maintenna last injected September 08, 2018. Prozac was increased to 40 mg daily and Seroquel was increased to 100 mg po daily, 50 mg po q3pm and 200 mg HS on the medical floor. As noted above patient has been demonstrating delusions disorganization and bizarre behavior on the medical floor and continues to demonstrate these symptoms on the psychiatric unit. Patient is depressed, hopeless, helpless and has very low self-worth. She punishes herself both mentally and physically. She prays loudly and incessantly. She needs to be repeatedly redirected from bowing to staff and kissing their shoes. Hysterically, patient blurts "I dont want to go to the fire! and "I want to go to heaven!" Shes quite unpredictable and impulsive. She can be heard wailing throughout the hallway of the psychiatric unit. Patient does not appear to be any physical distress and denies having any new discomfort or pain however she does appear to be in significant emotional distress and has poor insight and judgement. PSYCHIATRIC HISTORY Patient is a poor historian cannot provide reliable information regarding her psychiatric history however prior notes indicate that she has been psychiatrically hospitalized both in [place] and in [place]. Her most recent hospitalization was at the [facility] approximately six months ago. She attends outpatient at [facility] in and reportedly compliant with following medications Abilify 10 mg daily, Prozac 10 mg daily Seroquel 100 mg BID as well as Abilify Maintenna (last injected September 08, 2018). Prozac was increased to 40 mg daily and Seroquel was increased to 100 mg po daily, 50 mg po q3pm and 200 mg HS on the medical floor. Patient has a tendency to become very religiously preoccupied, disorganized and bizarre during her decompensations. She has a history of eating her feces and drinking her urine as a form of self punishment during these episodes SOCIAL HISTORY Patient was born in [place]. Shes been for about 22 years. She has two adult daughters (though told staff one of her daughters is 12 yo) who live with her and her . Patient denies any drug or alcohol issues in her life. The patient failed the outpatient lower level of care: Yes Current Medications: Active Medications Generic Name Dose Route Start Last Admin Trade Name Freq PRN Reason Stop Dose Admin Aripiprazole 10 mg 09/13/18 08:00 Abilify PO DAILY DAT Protocol Benztropine Mesylate 1 mg 09/12/18 16:00 09/12/18 19:01 Cogentin PO Not Given BID DAT Fluoxetine HCl 40 mg 09/13/18 08:00 Prozac PO DAILY DAT Folic Acid 1 mg 09/13/18 08:00 Folic Acid PO DAILY DAT Gabapentin 300 mg 09/13/18 08:00 Neurontin PO DAILY DAT Protocol Hydrochlorothiazide 25 mg 09/13/18 08:00 Hydrodiuril PO DAILY DAT Levothyroxine Sodium 125 mcg 09/13/18 06:00 Synthroid PO 0600 DAT Propranolol HCl 10 mg 09/13/18 08:00 Inderal PO DAILY DAT Quetiapine Fumarate 200 mg 09/12/18 22:00 09/12/18 21:28 Seroquel PO 200 mg HS DAT Administration Protocol Spironolactone 25 mg 09/13/18 08:00 Aldactone PO DAILY DAT Present on Admission - Present on Admission Any Indicators Present on Admission: No - Notes: Notes:: Please refer to results from patient's physical exam/ROS/labs in progress notes from her recent hospitalization on the medical floor from 09/10/18-09/12/18, as well as ER physician ROS and physical exam on 09/09/18 Review of Systems - Review of Systems Review of Systems: Please refer to results from patient's physical exam/ROS/labs in progress notes from her recent admission to the medical floor from 09/10/18-09/12/18, as well as ER ROS and physical exam on 09/09/18 - Constitutional Constitutional: As Per HPI - EENT Eyes: As Per HPI Ears: As Per HPI - Breasts Breasts: As Per HPI - Cardiovascular Cardiovascular: As Per HPI - Respiratory Respiratory: As Per HPI - Gastrointestinal Gastrointestinal: As Per HPI - Genitourinary Genitourinary: As Per HPI - Reproductive: Female Reproductive:Female: As Per HPI - Menstruation Menstruation: As Per HPI - Musculoskeletal Musculoskeletal: As Per HPI - Integumentary Integumentary: As Per HPI - Neurological Neurological: As Per HPI, Behavioral Changes - Psychiatric Psychiatric: Anxiety, Behavioral Changes, Change in Appetite, Confusion, Depression, Hopelessness, Mood Swings, Panic Attacks, Paranoia, Suicidal Ideation - Endocrine Endocrine: As Per HPI - Hematologic/Lymphatic Hematologic: As Per HPI Past Patient History - Past Psychiatric History Prior Professional Help: See HPI - PSYCHIATRIC Hx Psychophysiologic Disorder: No Hx Anxiety: No Hx Bipolar Disorder: No Hx Depression: Yes Hx Emotional Abuse: No Hx Hallucinations: Yes Hx Panic Symptoms: Yes Hx Paranoia: Yes Hx Physical Abuse: No Hx Schizophrenia: Yes Hx Sexual Abuse: No Hx Substance Use: No - Infectious Disease Hx of Infectious Diseases: None - Tetanus Immunizations Tetanus Immunization: Unknown - Past Medical History & Family History Past Medical History?: Yes - Past Social History Alcohol: None Drugs: Denies Home Situation {Lives}: With Family (Please refer to results from patient's physical exam/ROS/labs in progress notes from her recent admission to the medical floor from 09/10/18-09/12/18, as well as ER ROS and physical exam on 09/09/18) - CARDIAC Hx Cardiac Disorders: No Hx Pacemaker: No - PULMONARY Hx Respiratory Disorders: No - NEUROLOGICAL Hx Neurological Disorder: No Hx Paralysis: No - HEENT Hx HEENT Problems: No - RENAL Hx Chronic Kidney Disease: No - ENDOCRINE/METABOLIC Hx Endocrine Disorders: Yes Hx Hyperthyroidism: Yes - HEMATOLOGICAL/ONCOLOGICAL Hx Blood Disorders: No Hx Blood Transfusions: No Hx Blood Transfusion Reaction: No - INTEGUMENTARY Hx Dermatological Problems: No - MUSCULOSKELETAL/RHEUMATOLOGICAL Hx Musculoskeletal Disorders: Yes - GASTROINTESTINAL Hx Gastrointestinal Disorders: No - GENITOURINARY/GYNECOLOGICAL Hx Genitourinary Disorders: Yes (C/S X 1) - SURGICAL HISTORY Hx Surgeries: Yes (SKIN GRAFT TAKEN FROM THIGH FOR RIGHT BREAST SX.C/S X 1) - ANESTHESIA Hx Anesthesia: Yes Hx Anesthesia Reactions: No Hx Malignant Hyperthermia: No - Medical/Surgical History Reviewed & confirmed: by me (Please refer to results from patient's physical exam/ROS/labs in progress notes from her recent admission to the medical floor from 09/10/18-09/12/18, as well as ER ROS and physical exam on 09/09/18) Meds Allergies/Adverse Reactions: Allergies Allergy/AdvReac Type Severity Reaction Status Date / Time vancomycin AdvReac Intermediate ITCHING Verified 09/13/18 01:45 Mental Status Examination - Personal Presentation Personal Presentation: Looks stated age - Affect Affect: Broad, Depressed - Motor Activity Motor Activity: Psychomotor Agitation - Reliability in Providing Information Reliability in Providing Information: Poor, due to alteration in thoughts, Poor, due to altered mood - Speech Speech: Disorganized, Irrelevant, Tangential - Mood Mood: Depressed, Anxious - Formal Thought Process Formal Thought Process: Delusions, Paranoia, Loosening of associations - Obsessions/Compulsions Obsessions: Yes (religiously preoccupied) Compulsions: Yes (behaviors for the purpose of self-punishment (eating excrement, kissing staff shoes)) - Cognitive Functions Orientation: Place Sensorium: Alert Attention/Concentration: Easily distracted Estimate of Intelligence: Average Judgement: Imparied, as evidence by: Poor judgement, Imparied, as evidence by: Lack of insight into illness Memory: Recent impaired, as evidence by: Inability to recall events of the day, Recent imparied as evidence by:Inability to complete 3/3 object recall - Risk Risk: Suicidal, Self-mutilation (eats human waste), Diminished functioning - Strength & Assets Inventory Strength & Assets Inventory: Family support Psychiatric Physical Exam - Physical Exam Reviewed and confirmed: Emergency Department Physical Exam - Additional Findings Additional findings: Please refer to results from patient's physical exam/ROS/labs in progress notes from her recent admission to the medical floor from 09/10/18-09/12/18, as well as ER ROS and physical exam on 09/09/18 Results - Vital Signs Recent Vital Signs: Last Vital Signs Temp 97.2 F L 09/12/18 16:11 Pulse 80 09/12/18 16:11 Resp 20 09/12/18 16:11 BP 114/64 09/12/18 16:11 Pulse Ox - Labs Labs: Please refer to results from patient's physical exam/ROS/labs in progress notes from her recent admission to the medical floor from 09/10/18-09/12/18, as well as ER ROS and physical exam on 09/09/18 - EKG Data EKG Interpreted by: ER Physician (Please refer to results from patient's physical exam/ROS/labs in progress notes from her recent admission to the medical floor from 09/10/18-09/12/18, as well as ER ROS and physical exam on 09/09/18) - Impressions Impression: Please refer to results from patient's physical exam/ROS/labs in progress notes from her recent admission to the medical floor from 09/10/18-09/12/18, as well as ER ROS and physical exam on 09/09/18 DSM Plan - DSM 5 DSM 5 Diagnosis: Schizoaffective Disorder r/o delirium - Recommended/Plan of Treatment Treatment Recommendations and Plan of Treatment: * group, milieu and supportive tx * Seroquel 100 mg AM, 50 mg po qPM and 200 mg po HS and abilify 10 mg po daily for disorganization, delusions, holiness preoccupation * Prozac 30 mg daily for depression and anxiety * Ativan 0.5 mg po AMHS started for anxiety * Abilify Maintenna was provided to patient on 09/08/18 * Haldol 3 mg + Ativan 1 mg q6 prn: agitation, will c/w 1:1 * Vitals reviewed and noted below: Selected Entries 09/12/18 09/13/18 16:11 07:00 Temperature 97.2 F L 98.5 F Pulse Rate 80 55 L Respiratory 20 22 Rate Blood Pressure 114/64 169/114 H * Please refer to results from patient's physical exam/ROS/labs in progress notes from her recent admission to the medical floor from 09/10/18-09/12/18, as well as ER ROS and physical exam on 09/09/18 * No new labs overnight Prognosis: guarded Discharge Plan and Discharge Criteria: [facility] [place] [place] outpatient program - Tobacco Cessation Tobacco Use Treatment Practical Counseling Provided: No Tobacco Use Treatment FDA-Approved Cessation Medication Provided: No - Alcohol or Substance Abuse Does the patient have an Alcohol or Substance Abuse Disorder: No Initial Psych Certification - Initial Certification I certify that the inpatient psychiatric facility admission was medically necessary for either: Treatment which could reasonbly be expected to improve pt's condition, Diagnostic study I estimate of hospitalization is necessary for proper treatment of the patient: 8 Unit of Time: Days
[2018-09-14] MEDS: Levothyroxine 125 MCG TAB PO SCH (05:57)
--- NOTE | 2018-09-14 08:21 | CP.PCM.PN ---
Subjective - Date & Time of Evaluation Date of Evaluation: 09/14/18 Time of Evaluation: 07:50 - Subjective Subjective: House Doctor note: Paged from the nurse for reported AMS. As per the nurse and Dr Olmedo the patient has been more altered and behaving differently in the past 24hr. Patient was seen and evaluated at bedside. Patient states that she keeps praying because otherwise she believes she will goto hell. Patient is AAO x 3 with no complaints . Denies any fever, chills, sob, cp, abd pain, n/v/d. Objective - Vital Signs/Intake and Output Vital Signs (last 24 hours): Temp Pulse Resp BP Pulse Ox 97.9 F 60 17 115/72 09/14/18 07:00 09/14/18 07:00 09/14/18 07:00 09/14/18 07:00 - Medications Medications: Current Medications Aripiprazole (Abilify) 10 mg PO DAILY [facility]; Protocol Last Admin: 09/13/18 08:29 Dose: 10 mg Benztropine Mesylate (Cogentin) 1 mg PO BID [facility] Last Admin: 09/13/18 17:06 Dose: Not Given Enoxaparin Sodium (Lovenox) 40 mg SC DAILY [facility]; Protocol Fluoxetine HCl (Prozac) 30 mg PO DAILY [facility] Folic Acid (Folic Acid) 1 mg PO DAILY [facility] Last Admin: 09/13/18 08:29 Dose: 1 mg Gabapentin (Neurontin) 300 mg PO DAILY [facility]; Protocol Last Admin: 09/13/18 08:29 Dose: 300 mg Haloperidol (Haldol) 3 mg PO Q6 PRN; Protocol PRN Reason: Agitation Last Admin: 09/14/18 05:53 Dose: 3 mg Hydrochlorothiazide (Hydrodiuril) 25 mg PO DAILY [facility] Last Admin: 09/13/18 08:30 Dose: 25 mg Levothyroxine Sodium (Synthroid) 125 mcg PO 0600 [facility] Last Admin: 09/14/18 05:57 Dose: 125 mcg Lorazepam (Ativan) 1 mg PO Q6 PRN; Protocol PRN Reason: Agitation Last Admin: 09/14/18 06:48 Dose: 1 mg Lorazepam (Ativan) 0.5 mg PO AMHS [facility]; Protocol Last Admin: 09/13/18 21:38 Dose: 0.5 mg Pantoprazole Sodium (Protonix Ec Tab) 40 mg PO 0600 [facility] Propranolol HCl (Inderal) 10 mg PO DAILY [facility] Last Admin: 09/13/18 06:50 Dose: 10 mg Quetiapine Fumarate (Seroquel) 200 mg PO HS [facility]; Protocol Last Admin: 09/13/18 21:36 Dose: 200 mg Quetiapine Fumarate (Seroquel) 100 mg PO QAM [facility]; Protocol Last Admin: 09/13/18 11:14 Dose: 100 mg Quetiapine Fumarate (Seroquel) 50 mg PO 1500 [facility]; Protocol Last Admin: 09/13/18 16:27 Dose: Not Given Spironolactone (Aldactone) 25 mg PO DAILY [facility] Last Admin: 09/13/18 08:29 Dose: 25 mg - Constitutional Appears: No Acute Distress - Head Exam Head Exam: ATRAUMATIC, NORMOCEPHALIC - Eye Exam Eye Exam: EOMI - ENT Exam ENT Exam: Mucous Membranes Moist - Respiratory Exam Respiratory Exam: Clear to Ausculation Bilateral. absent: Rales, Rhonchi, Wheezes - Cardiovascular Exam Cardiovascular Exam: REGULAR RHYTHM, +S1, +S2 - Extremities Exam Extremities Exam: absent: Calf Tenderness - Neurological Exam Neurological Exam: Alert, Awake, Oriented x3 - Skin Skin Exam: Warm Assessment and Plan - Assessment and Plan (Free Text) Assessment: 48 F evaluated for AMS which is likely 2/2 patients psychosis. Hemodynamically stable Will obtain CBC, CMP, Mg, P, TSH to rule out a medical cause Added DVT/PE prevention with Protonix and Lovenox sc Case was discussed with Dr Ca which agrees with the plan.
[2018-09-14] MEDS: Enoxaparin 40 mg Syringe SC SCH (08:32)
[2018-09-14 09:24] LABS: BASO # 0.01 K/mm3 (0.0-2.0); BASO % 0.2 % (0.0-3.0); EOS % 0.9 % (1.5-5.0); GRAN # 2.39 (1.4-6.5); GRAN % 50.8 % (50.0-68.0); HEMOGLOBIN 12.4 g/dL (12.0-16.0); LYMPH # 1.6 (1.2-3.4); LYMPH % 34.7 % (22.0-35.0); MEAN CELL VOLUME 86.1 fl (80.0-105.0); MEAN CORPUSCULAR HEMOGLOBIN 28.2 pg (25.0-35.0); MEAN CORPUSCULAR HGB CONC 32.8 g/dl (31.0-37.0); MEAN PLATELET VOLUME 9.4 fl (7.0-11.0); MONO # 0.6 (0.1-0.6); MONO % 13.4 % (1.0-6.0); RBC 4.39 10^6/uL (3.5-6.1); RED CELL DISTRIBUTION WIDTH 16.4 % (11.5-14.5); WHITE BLOOD COUNT 4.7 10^3/uL (4.5-11.0)
[2018-09-14 09:48] LABS: ALB/GLOB RATIO 1.2 (1.1-1.8); ALBUMIN 4.4 g/dL (3.0-4.8)
--- NOTE | 2018-09-14 10:14 | PCM.PYCHPN ---
Psychiatric Progress Note - Psychiatric Progress Note Patient seen today, length of contact: 30 min Problems Identified/Issues Discussed: History of Present Illness and Precipitating Events: Patient is a 48-year-old Turk[place] female with a psychiatric history of Schizoaffective disorder, multiple prior psychiatric admissions both in [place] and the [place]~ most recently hospitalized at [facility] x6 months ago, who was transferred from the medical floor yesterday after being treated from 09/10/18-09/12/18 for dysphagia. Patient was consulted by Dr. Ross on September 10 as well as this provider on September 11 and for symptoms of depression, disorganization, paranoia, adventism preoccupation as well as bizarre behavior. On the medical floor patient required 1:1 because she was caught drinking her urine out of the toilet. Patient was trying to punish herself because she didn't deserve to live. Patient attends outpatient psychiatric treatment of [facility]. Her most recent follow up was on September 08, 2018. Patient has been compliant with Abilify 10 mg daily, Prozac 10 mg daily Seroquel 100 mg BID as well as Abilify Maintenna last injected September 08, 2018. Prozac was increased to 40 mg daily and Seroquel was increased to 100 mg po daily, 50 mg po q3pm and 200 mg HS on the medical floor. As noted above patient has been demonstrating delusions disorganization and bizarre behavior on the medical floor and continues to demonstrate these symptoms on the psychiatric unit--however her impulse control and intensity of psychosis are worse on the psychiatric unit. Patient is depressed, hopeless, helpless and has very low self-worth. She punishes herself both mentally and physically. She prays loudly and incessantly. She still needs to be repeatedly redirected from bowing to staff and kissing their shoes. Hysterically, patient blurts "I dont want to go to the fire! and "I want to go to heaven!" She remains quite unpredictable and impulsive. She can still be heard wailing throughout the hallway of the psychiatric unit. Patient does not appear to be any physical distress and denies having any new discomfort or pain however she does appear to be in significant emotional distress and has poor insight and judgement. PSYCHIATRIC HISTORY Patient is a poor historian cannot provide reliable information regarding her psychiatric history however prior notes indicate that she has been psychiatrically hospitalized both in [place] and in [place]. Her most recent hospitalization was at the [facility] approximately six months ago. She attends outpatient at [facility] in and reportedly compliant with following medications Abilify 10 mg daily, Prozac 10 mg daily Seroquel 100 mg BID as well as Abilify Maintenna (last injected September 08, 2018). Prozac was increased to 40 mg daily and Seroquel was increased to 100 mg po daily, 50 mg po q3pm and 200 mg HS on the medical floor. Patient has a tendency to become very religiously preoccupied, disorganized and bizarre during her decompensations. She has a history of eating her feces and drinking her urine as a form of self punishment during these episodes SOCIAL HISTORY Patient was born in [place]. Shes been for about 22 years. She has two adult daughters (though told staff one of her daughters is 12 yo) who live with her and her . Patient denies any drug or alcohol issues in her life. PROGRESS NOTE Patient continues to be delusional, bizarre and disorganized on the unit. It seems as though her impulse control and intensity of psychosis are worse on the psychiatric unit. She crawls along the floor and prays loudly and incessantly. She still needs to be repeatedly redirected from bowing to staff and kissing their shoes. Hysterically, patient blurts "I dont want to go to the fire! and "I want to go to heaven!". She asks me again if she is going to heaven. Patient remains quite unpredictable and impulsive. She can still be heard wailing throughout the hallway of the psychiatric unit. Patient does not appear to be any physical distress and denies having any new discomfort or pain however she does appear to be in significant emotional distress with poor insight and judgement. Diagnostic Results: Schizoaffective Disorder r/o delirium Medication Change: Yes (Ativan increased to 1 mg AMHS) Medical Record Reviewed: Yes Mental Status Examination - Cognitive Function Orientation: Place Memory: Impaired Attention: Poor Concentration: Poor Association: Loose Fund of Knowledge: Poor - Mood Mood: Depressed, Anxious - Affect Affect: Broad, Depressed - Formal Thought Process Formal Thought Process: Delusions, Paranoia, Loosening of associations Goal/Treatment Plan - Goal/Treatment Plan Progress Toward Problem(s) and Goals/Treatment Plan: * group, milieu and supportive tx (as tolerated) * Seroquel 100 mg AM, 50 mg po qPM and 200 mg po HS and abilify 10 mg po daily for disorganization, delusions, adventism preoccupation * Prozac 30 mg daily for depression and anxiety * Ativan 0.5 mg po AMHS increased to 1 mg po qamhs for anxiety and mood control on 09/14/18 * Abilify Maintenna was provided to patient on 09/08/18 * Haldol 3 mg + Ativan 1 mg q6 prn: agitation, will c/w 1:1 * Elevated vitals noted below. Patient also with worsening confusion and psychotic symptoms since transfer to the psychiatric unit~~treatment of which is complicated by patient's complaints of dizziness and unsteadiness on the unit (though her psychotropic medications were not changed after her transfer from the medical floor). Appreciate Dr. Hollins's f/u today. 09/13/18 09/13/18 07:00 08:30 Temperature 98.5 F Pulse Rate 55 L 114 H Respiratory 22 20 Rate Blood Pressure 169/114 H 129/100 H * Please refer to results from patient's physical exam/ROS/labs in progress notes from her recent admission to the medical floor from 09/10/18-09/12/18, as well as ER ROS and physical exam on 09/09/18 * Recent weekend labs noted below: Laboratory Results - last 24 hr 09/14/18 09/14/18 09/14/18 09:10 09:10 09:10 WBC 4.7 D RBC 4.39 Hgb 12.4 Hct 37.8 MCV 86.1 MCH 28.2 MCHC 32.8 RDW 16.4 H Plt Count 360 MPV 9.4 Gran % 50.8 Lymph % (Auto) 34.7 [place] % (Auto) 13.4 H Eos % (Auto) 0.9 L Baso % (Auto) 0.2 Gran # 2.39 Lymph # (Auto) 1.6 [place] # (Auto) 0.6 Eos # (Auto) 0.0 Baso # (Auto) 0.01 Sodium 140 Potassium 4.0 Chloride 104 Carbon Dioxide 21 Anion Gap 18 BUN 15 Creatinine 1.6 H Est GFR ( Amer) 42 Est GFR (Non-Af Amer) 35 Random Glucose 85 Calcium 10.0 Phosphorus 2.8 Magnesium 1.6 L Total Bilirubin 0.5 AST 89 H D ALT 57 H Alkaline Phosphatase 88 Total Protein 8.0 Albumin 4.4 Globulin 3.6 Albumin/Globulin Ratio 1.2 Triglycerides 102 Cholesterol 234 H LDL Cholesterol Direct 155 H HDL Cholesterol 60 TSH 3rd Generation 5.59 H
[2018-09-14] MEDS ORDERED: Sodium Chloride 0.9% 1,000 ML IV SCH (14:30)
--- NOTE | 2018-09-14 15:20 | CP.PCM.CON ---
History of Present Illness - History of Present Illness History of Present Illness: Nephrology Consultation Note: Assessment: Stable Acute Kidney Injury (N17.9) likely due to pre-renal state hx of HTN Ca breast s/p radiation and Rt arm lymphedema dysphagia psyhosis hyperlipidemia Plan No acute need for renal replacement therapy at this time. . Hypertension control with meds as ordered. Maintain hemodynamics stable. Avoid hypotension. no ACEI/ARB due to TERESA. hold hctz due to pre renal state Monitor Input/Output, daily weights and renal function with basic metabolic panel pt to be encouraged to drink more water repeat BMP in AM Dose meds/antibiotics for reduced GFR. Avoid fleets enema/magnesium based laxatives. Avoid nephrotoxins/NSAIDs/ iodinated contrast (unless needed emergently) Glycemic control Further work up/management as per primary team Thanks for allowing me to participate in care of your patient. Will follow patient with you. Please call if any Qs. had d/w team Dr Johnson Gibbs Office: [phone] Chief Complaint; unable to obtain Reason for consult: Acute Kidney Injury HPI: Pt is a 48 F with hx of hypertension, Ca breast s/p radiation and Rt arm lymphedema presented with complaints of difficulty swallowing, seen by GI and heme/onc, transferred to [facility] for psychosis and noted to have higher Cr 1.6 Denies OTC/herbal meds or NSAIDs No recent iodinated contrast exposure. No obvious episodes of low BP. renal consult for TERESA ROS: pt unable to provide hx Physical Examination: General Appearance: Comfortable, in no acute respiratory distress, co-operative . Vitals reviewed and noted as below Head; Atraumatic, normocephalic ENT: no ulcers no thrush. Tongue is midline. Oropharynx: no rash or ulcers. EYES: Pupils are equal, round and reactive to light accommodation. Eye muscles and extraocular movement intact. Sclera is anicteric. Neck; supple no lymphadenopathy, no thyromegaly or bruit Lungs: Normal respiratory rate/effort. Breath sounds bilateral equal and clear Heart: Normal rate. s1s2 normal. No rub or gallop. Extremities: no edema. No varicose veins. Rt arm lymphedema Neurological: Patient is sleepy and not much communicative Skin: Warm and dry. Normal turgor. No rash. Palpitation: Normal elasticity for age Abdomen: Abdomen is soft. Bowel sounds +. There is no abdominal tenderness, no guarding/rigidity no organomegaly Psych: unable MSK: no joint tenderness or swelling. Digits and nails normal, no deformity : kidney or bladder not palpable Labs/imaging reviewed. Past medical history, past surgical history, family history, social history, allergy reviewed and noted as below Family hx: no hx of CKD. Rest non-contributory Past Patient History - Infectious Disease Hx of Infectious Diseases: None - Tetanus Immunizations Tetanus Immunization: Unknown - Past Medical History & Family History Past Medical History?: Yes - Past Social History Alcohol: None Drugs: Denies Home Situation {Lives}: With Family (Please refer to results from patient's physical exam/ROS/labs in progress notes from her recent admission to the medical floor from 09/10/18-09/12/18, as well as ER ROS and physical exam on 09/09/18) - CARDIAC Hx Cardiac Disorders: No Hx Pacemaker: No - PULMONARY Hx Respiratory Disorders: No - NEUROLOGICAL Hx Neurological Disorder: No Hx Paralysis: No - HEENT Hx HEENT Problems: No - RENAL Hx Chronic Kidney Disease: No - ENDOCRINE/METABOLIC Hx Endocrine Disorders: Yes Hx Hyperthyroidism: Yes - HEMATOLOGICAL/ONCOLOGICAL Hx Blood Disorders: No Hx Blood Transfusions: No Hx Blood Transfusion Reaction: No - INTEGUMENTARY Hx Dermatological Problems: No - MUSCULOSKELETAL/RHEUMATOLOGICAL Hx Musculoskeletal Disorders: Yes - GASTROINTESTINAL Hx Gastrointestinal Disorders: No - GENITOURINARY/GYNECOLOGICAL Hx Genitourinary Disorders: Yes (C/S X 1) - PSYCHIATRIC Hx Psychophysiologic Disorder: No Hx Anxiety: No Hx Bipolar Disorder: No Hx Depression: Yes Hx Emotional Abuse: No Hx Hallucinations: Yes Hx Panic Symptoms: Yes Hx Paranoia: Yes Hx Physical Abuse: No Hx Schizophrenia: Yes Hx Sexual Abuse: No Hx Substance Use: No - SURGICAL HISTORY Hx Surgeries: Yes (SKIN GRAFT TAKEN FROM THIGH FOR RIGHT BREAST SX.C/S X 1) - ANESTHESIA Hx Anesthesia: Yes Hx Anesthesia Reactions: No Hx Malignant Hyperthermia: No Meds Allergies/Adverse Reactions: Allergies Allergy/AdvReac Type Severity Reaction Status Date / Time vancomycin AdvReac Intermediate ITCHING Verified 09/13/18 01:45 - Medications Medications: Current Medications Aripiprazole (Abilify) 10 mg PO DAILY [facility]; Protocol Last Admin: 09/14/18 08:31 Dose: 10 mg Benztropine Mesylate (Cogentin) 1 mg PO BID [facility] Last Admin: 09/14/18 08:31 Dose: 1 mg Enoxaparin Sodium (Lovenox) 40 mg SC DAILY [facility]; Protocol Last Admin: 09/14/18 08:32 Dose: 40 mg Fluoxetine HCl (Prozac) 30 mg PO DAILY [facility] Last Admin: 09/14/18 08:30 Dose: 30 mg Folic Acid (Folic Acid) 1 mg PO DAILY [facility] Last Admin: 09/14/18 08:30 Dose: 1 mg Gabapentin (Neurontin) 300 mg PO DAILY [facility]; Protocol Last Admin: 09/14/18 08:30 Dose: 300 mg Haloperidol (Haldol) 3 mg PO Q6 PRN; Protocol PRN Reason: Agitation Last Admin: 09/14/18 05:53 Dose: 3 mg Sodium Chloride (Sodium Chloride 0.9%) 1,000 mls @ 100 mls/hr IV .Q10H [facility] Levothyroxine Sodium (Synthroid) 125 mcg PO 0600 [facility] Last Admin: 09/14/18 05:57 Dose: 125 mcg Lorazepam (Ativan) 1 mg PO Q6 PRN; Protocol PRN Reason: Agitation Last Admin: 09/14/18 06:48 Dose: 1 mg Lorazepam (Ativan) 1 mg PO AMHS [facility]; Protocol Pantoprazole Sodium (Protonix Ec Tab) 40 mg PO 0600 [facility] Propranolol HCl (Inderal) 10 mg PO DAILY [facility] Last Admin: 09/14/18 08:30 Dose: 10 mg Quetiapine Fumarate (Seroquel) 200 mg PO HS [facility]; Protocol Last Admin: 09/13/18 21:36 Dose: 200 mg Quetiapine Fumarate (Seroquel) 100 mg PO QAM [facility]; Protocol Last Admin: 09/14/18 09:31 Dose: 100 mg Quetiapine Fumarate (Seroquel) 50 mg PO 1500 [facility]; Protocol Last Admin: 09/13/18 16:27 Dose: Not Given Spironolactone (Aldactone) 25 mg PO DAILY [facility] Last Admin: 09/14/18 08:31 Dose: 25 mg Results - Vital Signs Recent Vital Signs: Last Vital Signs Temp 97.9 F 09/14/18 07:00 Pulse 60 09/14/18 07:00 Resp 17 09/14/18 07:00 BP 115/72 09/14/18 07:00 Pulse Ox - Labs Result Diagrams: 09/14/18 09:10 09/14/18 09:10 Labs: Laboratory Results - last 24 hr 09/14/18 09/14/18 09/14/18 09:10 09:10 09:10 WBC 4.7 D RBC 4.39 Hgb 12.4 Hct 37.8 MCV 86.1 MCH 28.2 MCHC 32.8 RDW 16.4 H Plt Count 360 MPV 9.4 Gran % 50.8 Lymph % (Auto) 34.7 [place] % (Auto) 13.4 H Eos % (Auto) 0.9 L Baso % (Auto) 0.2 Gran # 2.39 Lymph # (Auto) 1.6 [place] # (Auto) 0.6 Eos # (Auto) 0.0 Baso # (Auto) 0.01 Sodium 140 Potassium 4.0 Chloride 104 Carbon Dioxide 21 Anion Gap 18 BUN 15 Creatinine 1.6 H Est GFR ( Amer) 42 Est GFR (Non-Af Amer) 35 Random Glucose 85 Calcium 10.0 Phosphorus 2.8 Magnesium 1.6 L Total Bilirubin 0.5 AST 89 H D ALT 57 H Alkaline Phosphatase 88 Total Protein 8.0 Albumin 4.4 Globulin 3.6 Albumin/Globulin Ratio 1.2 Triglycerides 102 Cholesterol 234 H LDL Cholesterol Direct 155 H HDL Cholesterol 60 TSH 3rd Generation 5.59 H
--- NOTE | 2018-09-14 15:46 | CT ---
Date of service: 09/14/2018 PROCEDURE: CT HEAD WITHOUT CONTRAST. HISTORY: R/o INJURY COMPARISON: None available. TECHNIQUE: Axial computed tomography images were obtained through the head/brain without intravenous contrast. Radiation dose: Total exam DLP = 721.11 mGy-cm. This CT exam was performed using one or more of the following dose reduction techniques: Automated exposure control, adjustment of the mA and/or kV according to patient size, and/or use of iterative reconstruction technique. FINDINGS: HEMORRHAGE: No intracranial hemorrhage. BRAIN: Vidal-white matter differentiation is preserved. There is no mass, mass effect or abnormal extra-axial fluid collection. There is no territorial infarction. The midline sagittal structures are normal. VENTRICLES: The ventricles are normal in size, shape and configuration. CALVARIUM: There is no calvarial fracture or extracranial soft tissue swelling. PARANASAL SINUSES: Predominantly clear. MASTOID AIR CELLS: The right mastoid air cells are clear. The left mastoid air cells are underdeveloped OTHER FINDINGS: None. IMPRESSION: No acute intracranial abnormality.
[2018-09-14 17:54] LABS: URINE BILIRUBIN NEGATIVE (NEGATIVE); URINE BLOOD SMALL (NEGATIVE); URINE GLUCOSE (UA) NEGATIVE (NEGATIVE); URINE LEUKOCYTE ESTERASE SMALL Leu/uL (NEGATIVE); URINE PROTEIN NEGATIVE mg/dL (<30 mg/dL); URINE UROBILINOGEN 0.2 E.U./dL (<1 E.U./dL)
[2018-09-14 17:55] LABS: URINE APPEARANCE SL CLOUDY (CLEAR); URINE COLOR YELLOW (YELLOW)
[2018-09-14 18:44] LABS: URINE BACTERIA MANY (NEG); URINE WBC 20 - 25 /hpf (0-6)
[2018-09-15] MEDS: Pantoprazole 40 mg EC Tab PO SCH (07:05)
[2018-09-15] MEDS: Levothyroxine 125 MCG TAB PO SCH (07:05)
[2018-09-15 08:49] LABS: CALCIUM 9.8 mg/dL (8.4-10.5)
[2018-09-15] MEDS: Enoxaparin 40 mg Syringe SC SCH (08:59)
--- NOTE | 2018-09-15 10:30 | CP.PCM.PN ---
Subjective - Date & Time of Evaluation Date of Evaluation: 09/15/18 Time of Evaluation: 10:27 - Subjective Subjective: Gastroenterology Fellow/PGY6 Progress Note Patient tolerated puree diet. Large bowel movement yesterday.Transferred to psych for ongoing mental status management. A 12-point review of systems negative except for as above. Objective - Vital Signs/Intake and Output Vital Signs (last 24 hours): Temp Pulse Resp BP Pulse Ox 97.8 F 103 H 19 106/70 09/15/18 07:00 09/15/18 09:07 09/15/18 07:00 09/15/18 09:07 - Medications Medications: Current Medications Aripiprazole (Abilify) 10 mg PO DAILY [facility]; Protocol Last Admin: 09/15/18 08:57 Dose: 10 mg Benztropine Mesylate (Cogentin) 1 mg PO BID [facility] Last Admin: 09/15/18 08:57 Dose: 1 mg Enoxaparin Sodium (Lovenox) 40 mg SC DAILY [facility]; Protocol Last Admin: 09/15/18 08:59 Dose: 40 mg Fluoxetine HCl (Prozac) 30 mg PO DAILY [facility] Last Admin: 09/15/18 08:56 Dose: 30 mg Folic Acid (Folic Acid) 1 mg PO DAILY [facility] Last Admin: 09/15/18 08:56 Dose: 1 mg Gabapentin (Neurontin) 300 mg PO DAILY [facility]; Protocol Last Admin: 09/15/18 08:57 Dose: 300 mg Haloperidol (Haldol) 3 mg PO Q6 PRN; Protocol PRN Reason: Agitation Last Admin: 09/14/18 05:53 Dose: 3 mg Sodium Chloride (Sodium Chloride 0.9%) 1,000 mls @ 100 mls/hr IV .Q10H [facility] Levothyroxine Sodium (Synthroid) 150 mcg PO 0600 [facility] Lorazepam (Ativan) 1 mg PO Q6 PRN; Protocol PRN Reason: Agitation Last Admin: 09/14/18 06:48 Dose: 1 mg Lorazepam (Ativan) 1 mg PO AMHS [facility]; Protocol Last Admin: 09/14/18 21:34 Dose: 1 mg Magnesium Oxide (Mag-Ox) 400 mg PO BID [facility] Pantoprazole Sodium (Protonix Ec Tab) 40 mg PO 0600 [facility] Last Admin: 09/15/18 07:05 Dose: 40 mg Propranolol HCl (Inderal) 10 mg PO DAILY [facility] Last Admin: 09/15/18 09:07 Dose: 10 mg Quetiapine Fumarate (Seroquel) 200 mg PO HS [facility]; Protocol Last Admin: 09/14/18 21:34 Dose: 200 mg Quetiapine Fumarate (Seroquel) 100 mg PO QAM [facility]; Protocol Last Admin: 09/15/18 08:59 Dose: 100 mg Quetiapine Fumarate (Seroquel) 50 mg PO 1500 [facility]; Protocol Last Admin: 09/14/18 16:17 Dose: 50 mg Spironolactone (Aldactone) 25 mg PO DAILY [facility] Last Admin: 09/15/18 08:57 Dose: 25 mg - Labs Labs: 09/14/18 09:10 09/15/18 08:00 - Constitutional Appears: Non-toxic, No Acute Distress - Head Exam Head Exam: ATRAUMATIC, NORMOCEPHALIC - Eye Exam Eye Exam: EOMI, PERRL. absent: Scleral icterus Pupil Exam: PERRL. absent: Miosis, Mydriatic - ENT Exam ENT Exam: Mucous Membranes Dry, Normal Oropharynx - Neck Exam Neck Exam: Full ROM, Normal Inspection - Respiratory Exam Respiratory Exam: Clear to Ausculation Bilateral. absent: Rales, Rhonchi, Wheezes - Cardiovascular Exam Cardiovascular Exam: RRR, +S1, +S2. absent: Gallop, Rubs - GI/Abdominal Exam GI & Abdominal Exam: Soft, Normal Bowel Sounds. absent: Distended, Firm, Guarding, Rigid, Tenderness, Organomegaly, Rebound - Extremities Exam Extremities Exam: Normal Inspection. absent: Pedal Edema - Neurological Exam Neurological Exam: Alert, Awake - Psychiatric Exam Psychiatric exam: Normal Affect, Normal Mood - Skin Skin Exam: Dry, Intact, Normal Color, Warm Assessment and Plan - Assessment and Plan (Free Text) Assessment: 48 year old female with PMH of Stage III Right Breast Cancer s/p right mastectomy with chemoradiation in 2003 and right breast reconstruction 2012, and chronic right arm lymphedema presenting with difficulty swallowing. Active treatment of dysphagia with EGD showing tortuous esophagus, decreases esophageal compliance, gastritis, and flattening of duodenal mucosa with pathology pending. Modified barium swallow 01/2018 showed no signs of aspiration. EGD 03/2018 to evaluate dysphagia showed mild upper/mid-esophagitis without Osborne's or eosinophilic esophagitis. EGD 07/2016 to evaluate iron deficiency anemia showed H. pylori negative gastritis. Colonoscopy 07/2016 showed a 1cm ascending inflammatory polyp and internal hemorrhoids. Plan: -tolerating puree diet -can trial soft diet, small bites as tolerated -encourage oral hydration -pending EGD pathology -CT C/A/P and esophagram without acute pathology -slight LFT elevation likely due to multiple anti-pyschotic medications -will follow clinical course
[2018-09-15] MEDS: Magnesium Oxide 400 mg Tab UD PO SCH ×3 (13:19→18:35)
--- NOTE | 2018-09-15 14:59 | PN ---
DATE: 09/14/2018 SUBJECTIVE: The patient was lying in bed, sleeping. The patient woke up. She was alert, awake, oriented x3. She recognized me. She has no new complaints. She does not like the food here. The patient encouraged to drink a lot of fluids. PHYSICAL EXAMINATION VITAL SIGNS: Temperature 97.9, heart rate 60, blood pressure 115/72, respirations 17. HEAD AND NECK: Normal. No JVD. No thyromegaly. CHEST: Clear bilaterally. CARDIAC: First sound and second sound normal. ABDOMEN: Soft, obese, nontender. EXTREMITIES: The patient has right arm lymphedema from a previous surgery. Otherwise, lower extremities, no edema. LABORATORY DATA: Laboratory studies of the day; white count 4.7, hemoglobin 12.4, hematocrit 37.8, platelets 360,000. Chemistry shows sodium 140, potassium 4, chloride 104, bicarbonate 1, BUN 15, creatinine 1.6. The patient has calcium 10, magnesium 1.6. AST and ALT are elevated. Cholesterol 234, LDL 155. TSH 5.59. IMPRESSION: 1. Acute renal failure, could be dehydration versus contrast-induced. Continue try to give IV fluids, whether we cannot do that inside, we will encourage oral fluids. Renal consult by Dr. Johnson Gibbs, where is the patient. We will get a UA, C and S. Repeat labs in the morning. 2. Hypothyroidism. We are going to increase her medications, and we will replace magnesium due to low magnesium, and we will follow up on that. We will increase her thyroid medicine to a higher dose. 3. Schizophrenia with severe psychotic thoughts, and we will continue antipsychotic therapy. She is getting Seroquel and Abilify 10 mg by mouth daily, Seroquel 200 mg at night and 100 mg in the morning and 50 mg at 3 p.m. The patient is also getting Prozac 40 mg once a day. The patient is also on Ativan as needed. PLAN: Continue current therapy. Follow up currently. Igor Ca MD
--- NOTE | 2018-09-15 15:14 | CP.PCM.PN ---
Subjective - Date & Time of Evaluation Date of Evaluation: 09/15/18 Time of Evaluation: 15:11 - Subjective Subjective: Nephrology Consultation Note: Assessment: Stable Acute Kidney Injury (N17.9) likely due to pre-renal state hx of HTN Ca breast s/p radiation and Rt arm lymphedema dysphagia psyhosis hyperlipidemia UTI Plan No acute need for renal replacement therapy at this time. . Hypertension control with meds as ordered. Maintain hemodynamics stable. Avoid hypotension. no ACEI/ARB due to TERESA. hold hctz due to pre renal state Monitor Input/Output, daily weights and renal function with basic metabolic panel pt to be encouraged to drink more water started vantin for UTI pending c/s Dose meds/antibiotics for improved GFR. Glycemic control Further work up/management as per primary team Thanks for allowing me to participate in care of your patient. Will follow patient with you. Please call if any Qs. had d/w team Dr Johnson Gibbs Office: [phone] Chief Complaint; unable to obtain Reason for consult: Acute Kidney Injury HPI: Pt is a 48 F with hx of hypertension, Ca breast s/p radiation and Rt arm lymphedema presented with complaints of difficulty swallowing, seen by GI and heme/onc, transferred to [facility] for psychosis and noted to have higher Cr 1.6 Denies OTC/herbal meds or NSAIDs No recent iodinated contrast exposure. No obvious episodes of low BP. renal consult for TERESA ROS: pt unable to provide much hx. denies CP/SOB Physical Examination: General Appearance: Comfortable, in no acute respiratory distress, co-operative . Vitals reviewed and noted as below Head; Atraumatic, normocephalic ENT: no ulcers no thrush. Tongue is midline. Oropharynx: no rash or ulcers. EYES: Pupils are equal, round and reactive to light accommodation. Eye muscles and extraocular movement intact. Sclera is anicteric. Neck; supple no lymphadenopathy, no thyromegaly or bruit Lungs: Normal respiratory rate/effort. Breath sounds bilateral equal and clear Heart: Normal rate. s1s2 normal. No rub or gallop. Extremities: no edema. No varicose veins. Rt arm lymphedema Neurological: Patient is sleepy and not much communicative Skin: Warm and dry. Normal turgor. No rash. Palpitation: Normal elasticity for age Abdomen: Abdomen is soft. Bowel sounds +. There is no abdominal tenderness, no guarding/rigidity no organomegaly Psych: unable MSK: no joint tenderness or swelling. Digits and nails normal, no deformity : kidney or bladder not palpable Labs/imaging reviewed. Past medical history, past surgical history, family history, social history, allergy reviewed and noted as below Family hx: no hx of CKD. Rest non-contributory Objective - Vital Signs/Intake and Output Vital Signs (last 24 hours): Temp Pulse Resp BP Pulse Ox 97.8 F 103 H 19 106/70 09/15/18 07:00 09/15/18 09:07 09/15/18 07:00 09/15/18 09:07 - Medications Medications: Current Medications Benztropine Mesylate (Cogentin) 1 mg PO BID [facility] Last Admin: 09/15/18 08:57 Dose: 1 mg Enoxaparin Sodium (Lovenox) 40 mg SC DAILY [facility]; Protocol Last Admin: 09/15/18 08:59 Dose: 40 mg Fluoxetine HCl (Prozac) 30 mg PO DAILY [facility] Last Admin: 09/15/18 08:56 Dose: 30 mg Fluphenazine HCl (Prolixin) 2.[address] [facility]; Protocol Folic Acid (Folic Acid) 1 mg PO DAILY [facility] Last Admin: 09/15/18 08:56 Dose: 1 mg Gabapentin (Neurontin) 300 mg PO DAILY [facility]; Protocol Last Admin: 09/15/18 08:57 Dose: 300 mg Haloperidol (Haldol) 3 mg PO Q6 PRN; Protocol PRN Reason: Agitation Last Admin: 09/15/18 12:04 Dose: 3 mg Sodium Chloride (Sodium Chloride 0.9%) 1,000 mls @ 100 mls/hr IV .Q10H [facility] Levothyroxine Sodium (Synthroid) 150 mcg PO 0600 [facility] Lorazepam (Ativan) 1 mg PO Q6 PRN; Protocol PRN Reason: Agitation Last Admin: 09/15/18 12:04 Dose: 1 mg Lorazepam (Ativan) 1 mg PO AMHS [facility]; Protocol Last Admin: 09/15/18 10:00 Dose: 1 mg Magnesium Oxide (Mag-Ox) 400 mg PO BID [facility] Last Admin: 09/15/18 13:19 Dose: 400 mg Pantoprazole Sodium (Protonix Ec Tab) 40 mg PO 0600 [facility] Last Admin: 09/15/18 07:05 Dose: 40 mg Propranolol HCl (Inderal) 10 mg PO DAILY [facility] Last Admin: 09/15/18 09:07 Dose: 10 mg Quetiapine Fumarate (Seroquel) 200 mg PO HS [facility]; Protocol Last Admin: 09/14/18 21:34 Dose: 200 mg Spironolactone (Aldactone) 25 mg PO DAILY [facility] Last Admin: 09/15/18 08:57 Dose: 25 mg - Labs Labs: 09/14/18 09:10 09/15/18 08:00
--- NOTE | 2018-09-15 15:48 | PCM.PYCHPN ---
Psychiatric Progress Note - Psychiatric Progress Note Patient seen today, length of contact: 30 min Patient Chief Complaint: "I know that my is cheating on me, he wants to kill me, I don't want you to disclose any information to him... do you want me to wear the same shoes like you?" Problems Identified/Issues Discussed: Suicide/ homicide prevention, past psychiatric h/o, current psychiatric symptoms, medical problems, risk/benefits and alternatives of medications, medications compliance, coping strategies, substance abuse h/o, relapse prevention, importance of follow up with psychiatrist and therapist, discharge plan. Medical Problems: pt was dehydrated dysphagia is better new UTI, on antibiotics Diagnostic Results: 09/14/18 09:10 09/15/18 08:00 Lab Results 09/15/18 08:00: Sodium 140, Potassium 4.0, Chloride 102, Carbon Dioxide 28, Anion Gap 14, BUN 15, Creatinine 1.2, Est GFR ( Amer) 58, Est GFR (Non-Af Amer) 48, Random Glucose 97, Calcium 9.8 09/14/18 17:40: Urine Color Yellow, Urine Appearance Sl cloudy, Urine pH 6.0, Ur Specific [place] 1.010, Urine Protein Negative, Urine Glucose (UA) Negative, Urine Ketones Negative, Urine Blood Small H, Urine Nitrate Positive H, Urine Bilirubin Negative, Urine Urobilinogen 0.2, Ur Leukocyte Esterase Small H, Urine RBC 5 - 10, Urine WBC 20 - 25, Ur Epithelial Cells 10 - 12, Urine Bacteria Many 09/14/18 09:10: RPR Nonreactive 09/14/18 09:10: TSH 3rd Generation 5.59 H 09/14/18 09:10: Sodium 140, Potassium 4.0, Chloride 104, Carbon Dioxide 21, Anion Gap 18, BUN 15, Creatinine 1.6 H, Est GFR ( Amer) 42, Est GFR (Non- Af Amer) 35, Random Glucose 85, Calcium 10.0, Phosphorus 2.8, Magnesium 1.6 L, Total Bilirubin 0.5, AST 89 H D, ALT 57 H, Alkaline Phosphatase 88, Total Protein 8.0, Albumin 4.4, Globulin 3.6, Albumin/Globulin Ratio 1.2, Triglycerides 102, Cholesterol 234 H, LDL Cholesterol Direct 155 H, HDL Cholesterol 60 09/14/18 09:10: WBC 4.7 D, RBC 4.39, Hgb 12.4, Hct 37.8, MCV 86.1, MCH 28.2, MCHC 32.8, RDW 16.4 H, Plt Count 360, MPV 9.4, Gran % 50.8, Lymph % (Auto) 34.7, [place] % (Auto) 13.4 H, Eos % (Auto) 0.9 L, Baso % (Auto) 0.2, Gran # 2.39, Lymph # (Auto) 1.6, [place] # (Auto) 0.6, Eos # (Auto) 0.0, Baso # (Auto) 0.01 Microbiology 09/14/18 17:40 Urine Urine Culture - Preliminary Gram Negative Zen DSM 5 Symptoms Update: Patient is a 48-year-old [place] female with a psychiatric history of Schizoaffective disorder, multiple prior psychiatric admissions both in [place] and the [place]~ most recently hospitalized at [facility] x6 months ago, who was transferred from the medical floor after being treated from 09/10/18-09/12/18 for dysphagia, transfer was uneventful. 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 presented to be disorganized, psychotic, patient is paranoid towards her saying "he is cheating on me, he wants to kill me", patient also was responding to internal stimuli is, majority of the answers were not related to the questions being asked. Patient is currently on one-to-one because patient has disorganized thoughts and behavior, patient had tendency of drinking from toilet bowl, needs constant redirection. has a history of eating her feces and drinking her urine as a form of self punishment during these episodes Patient was observed to be restless, akathesic, will increase benzos. pt might benefit from first generation of antipsychotic medication, prolixin was discussed. pt agreed to take meds. pt has some patch of scratch on her forehead, when was asked pt reported that it is due to her constant pray "I was praying on the floor and accidentally hurt myself". bacitracin ordered. patient remains quite unpredictable and impulsive. poor insight and judgment. Diagnostic Results: Schizoaffective Disorder r/o delirium Medication Change: Yes (Ativan increased to 1 mg tid, seroquel and abilify d/c, prolixin added) Medical Record Reviewed: Yes Consults ordered or reviewed: patient was seen by medical team as well as nephrology team Mental Status Examination - Cognitive Function Orientation: Place Memory: Impaired Attention: Poor Concentration: Poor Association: Loose Fund of Knowledge: Poor - Mood Mood: Depressed, Anxious - Affect Affect: Broad, Depressed - Formal Thought Process Formal Thought Process: Delusions, Paranoia, Loosening of associations - Suicidal Ideation Suicidal Ideation: No - Homicidal Ideation Homicidal Ideation: No Goal/Treatment Plan - Goal/Treatment Plan Need for Continued Stay: Remain at risks for inpatient hospitalization, Severe depression anxiety, Discharge may exacerbated symptoms, Severe functional impairment Progress Toward Problem(s) and Goals/Treatment Plan: group, milieu and supportive tx (as tolerated) Seroquel and abilify po d/c prolixin 2.5mg po bid for psychosis Prozac 30 mg daily for depression and anxiety Ativan will be increased to 1mg po bid and hs for akathesia, anxiety and mood control Abilify Maintenna was provided to patient on 09/08/18 Haldol 3 mg + Ativan 1 mg q6 prn: agitation will c/w 1:1 SW consultation for discharge plan and social issues Family involvement, patient does not want her family to be involved Follow up on labs Will monitor closely Pt was educated about risk/benefits and alternatives of medications, coping strategies (safety plan, suicide prevention), relapse prevention, importance of follow up with psychiatrist and therapist, stay away from drugs/alcohol/smoking Estimated Date of D/C: 09/26/18
[2018-09-15] MEDS: Cefpodoxime (Vantin) 200 mg Tab PO SCH (18:35)
[2018-09-15] MEDS: Bacitracin Ointment 30 GM TUBE TOP SCH (19:41)
[2018-09-16] MEDS: Levothyroxine 150 MCG TAB PO SCH (05:45)
[2018-09-16] MEDS: Pantoprazole 40 mg EC Tab PO SCH (05:45)
--- NOTE | 2018-09-16 08:18 | CP.PCM.PN ---
<Stacy Colbetr - Last Filed: 09/16/18 08:15> Subjective - Date & Time of Evaluation Date of Evaluation: 09/16/18 Time of Evaluation: 08:15 - Subjective Subjective: Gastroenterology Fellow/PGY6 Progress Note Patient tolerating puree diet. Denies choking or vomiting. Admits to bowel movement yesterday. A 12-point review of systems negative except for as above. Objective - Vital Signs/Intake and Output Vital Signs (last 24 hours): Temp Pulse Resp BP Pulse Ox 98.0 F 87 18 98/59 L 09/16/18 07:17 09/16/18 07:17 09/16/18 07:17 09/16/18 07:17 - Medications Medications: Current Medications Bacitracin (Bacitracin) 1 gm TOP BID [facility] Last Admin: 09/15/18 19:41 Dose: 1 oin Benztropine Mesylate (Cogentin) 1 mg PO BID [facility] Last Admin: 09/15/18 17:33 Dose: Not Given Cefpodoxime Proxetil (Vantin) 200 mg PO BID [facility]; Protocol Stop: 09/18/18 16:01 Last Admin: 09/15/18 18:35 Dose: 200 mg Enoxaparin Sodium (Lovenox) 40 mg SC DAILY [facility]; Protocol Last Admin: 09/15/18 08:59 Dose: 40 mg Fluoxetine HCl (Prozac) 30 mg PO DAILY [facility] Last Admin: 09/15/18 08:56 Dose: 30 mg Fluphenazine HCl (Prolixin) 2.5 mg PO AMHS [facility]; Protocol Last Admin: 09/15/18 21:28 Dose: 2.5 mg Folic Acid (Folic Acid) 1 mg PO DAILY [facility] Last Admin: 09/15/18 08:56 Dose: 1 mg Gabapentin (Neurontin) 300 mg PO DAILY [facility]; Protocol Last Admin: 09/15/18 08:57 Dose: 300 mg Haloperidol (Haldol) 3 mg PO Q6 PRN; Protocol PRN Reason: Agitation Last Admin: 09/15/18 12:04 Dose: 3 mg Sodium Chloride (Sodium Chloride 0.9%) 1,000 mls @ 100 mls/hr IV .Q10H [facility] Levothyroxine Sodium (Synthroid) 150 mcg PO 0600 [facility] Last Admin: 09/16/18 05:45 Dose: 150 mcg Lorazepam (Ativan) 1 mg PO Q6 PRN; Protocol PRN Reason: Agitation Last Admin: 09/15/18 12:04 Dose: 1 mg Lorazepam (Ativan) 1 mg PO BID [facility]; Protocol Last Admin: 09/15/18 17:32 Dose: Not Given Lorazepam (Ativan) 1 mg PO HS [facility]; Protocol Last Admin: 09/15/18 21:26 Dose: 1 mg Magnesium Oxide (Mag-Ox) 400 mg PO BID [facility] Last Admin: 09/15/18 18:35 Dose: 400 mg Pantoprazole Sodium (Protonix Ec Tab) 40 mg PO 0600 [facility] Last Admin: 09/16/18 05:45 Dose: 40 mg Propranolol HCl (Inderal) 10 mg PO DAILY [facility] Last Admin: 09/15/18 09:07 Dose: 10 mg Quetiapine Fumarate (Seroquel) 200 mg PO HS [facility]; Protocol Last Admin: 09/15/18 21:25 Dose: 200 mg Spironolactone (Aldactone) 25 mg PO DAILY [facility] Last Admin: 09/15/18 08:57 Dose: 25 mg - Labs Labs: 09/14/18 09:10 09/15/18 08:00 - Constitutional Appears: Non-toxic, No Acute Distress - Head Exam Head Exam: ATRAUMATIC, NORMOCEPHALIC - Eye Exam Eye Exam: EOMI, PERRL. absent: Scleral icterus Pupil Exam: PERRL. absent: Miosis, Mydriatic - ENT Exam ENT Exam: Mucous Membranes Moist, Normal Oropharynx - Neck Exam Neck Exam: Full ROM, Normal Inspection - Respiratory Exam Respiratory Exam: Clear to Ausculation Bilateral. absent: Rales, Rhonchi, Wheezes - Cardiovascular Exam Cardiovascular Exam: RRR, +S1, +S2. absent: Gallop, Rubs - GI/Abdominal Exam GI & Abdominal Exam: Soft, Normal Bowel Sounds. absent: Distended, Firm, Guarding, Rigid, Tenderness, Organomegaly, Rebound - Extremities Exam Extremities Exam: Normal Inspection. absent: Pedal Edema - Neurological Exam Neurological Exam: Alert, Awake - Psychiatric Exam Psychiatric exam: Normal Affect, Normal Mood - Skin Skin Exam: Dry, Intact, Normal Color, Warm Assessment and Plan - Assessment and Plan (Free Text) Assessment: 48 year old female with PMH of Stage III Right Breast Cancer s/p right mastectomy with chemoradiation in 2003 and right breast reconstruction 2012, and chronic right arm lymphedema presenting with difficulty swallowing. Active treatment of dysphagia with EGD showing tortuous esophagus, decreases esophageal compliance, gastritis, and flattening of duodenal mucosa with pathology pending. Modified barium swallow 01/2018 showed no signs of aspiration. EGD 03/2018 to evaluate dysphagia showed mild upper/mid-esophagitis without Osborne's or eosinophilic esophagitis. EGD 07/2016 to evaluate iron deficiency anemia showed H. pylori negative gastritis. Colonoscopy 07/2016 showed a 1cm ascending inflammatory polyp and internal hemorrhoids. Plan: -continue puree diet -pending EGD pathology -CT C/A/P and esophagram without acute pathology -continue psych management of mental health -will benefit from outpatient GI follow up <Tan Bob V - Last Filed: 09/16/18 23:55> Objective - Vital Signs/Intake and Output Vital Signs (last 24 hours): Temp Pulse Resp BP Pulse Ox 98.0 F 102 H 18 120/81 09/16/18 07:17 09/16/18 16:00 09/16/18 07:17 09/16/18 16:00 - Medications Medications: Current Medications Bacitracin (Bacitracin) 1 gm TOP BID [facility] Last Admin: 09/16/18 17:22 Dose: Not Given Benztropine Mesylate (Cogentin) 1 mg PO BID [facility] Last Admin: 09/16/18 15:34 Dose: 1 mg Cefpodoxime Proxetil (Vantin) 200 mg PO BID [facility]; Protocol Stop: 09/18/18 16:01 Last Admin: 09/16/18 15:34 Dose: 200 mg Enoxaparin Sodium (Lovenox) 40 mg SC DAILY [facility]; Protocol Last Admin: 09/16/18 09:38 Dose: 40 mg Fluoxetine HCl (Prozac) 30 mg PO DAILY [facility] Last Admin: 09/16/18 09:40 Dose: 30 mg Fluphenazine HCl (Prolixin) 5 mg PO AMHS [facility]; Protocol Last Admin: 09/16/18 21:00 Dose: 5 mg Folic Acid (Folic Acid) 1 mg PO DAILY [facility] Last Admin: 09/16/18 09:41 Dose: 1 mg Gabapentin (Neurontin) 300 mg PO DAILY [facility]; Protocol Last Admin: 09/16/18 09:40 Dose: 300 mg Haloperidol (Haldol) 3 mg PO Q6 PRN; Protocol PRN Reason: Agitation Last Admin: 09/16/18 15:35 Dose: 3 mg Levothyroxine Sodium (Synthroid) 150 mcg PO 0600 [facility] Last Admin: 09/16/18 05:45 Dose: 150 mcg Lorazepam (Ativan) 1 mg PO Q6 PRN; Protocol PRN Reason: Agitation Last Admin: 09/15/18 12:04 Dose: 1 mg Lorazepam (Ativan) 1 mg PO BID [facility]; Protocol Last Admin: 09/16/18 15:34 Dose: 1 mg Lorazepam (Ativan) 1 mg PO HS [facility]; Protocol Last Admin: 09/16/18 21:00 Dose: 1 mg Magnesium Oxide (Mag-Ox) 400 mg PO BID [facility] Last Admin: 09/16/18 15:34 Dose: 400 mg Pantoprazole Sodium (Protonix Ec Tab) 40 mg PO 0600 [facility] Last Admin: 09/16/18 05:45 Dose: 40 mg Propranolol HCl (Inderal) 10 mg PO DAILY [facility] Last Admin: 09/16/18 09:47 Dose: 10 mg Quetiapine Fumarate (Seroquel) 200 mg PO HS [facility]; Protocol Last Admin: 09/16/18 21:00 Dose: 200 mg - Labs Labs: 09/14/18 09:10 09/16/18 07:45 Attending/Attestation - Attestation I have personally seen and examined this patient.: Yes I have fully participated in the care of the patient.: Yes I have reviewed all pertinent clinical information, including history, physical exam and plan: Yes Notes (Text): This is an addendum to GI progress report dictated by the GI Fellow.The patient was seen and examined earlier. Medical records, lab studies, imagings were reviewed. Last 24 hours events reviewed. Agreed with the above treatment plan as outlined in GI Fellow 's notes with the addition of the following 09/16/18 23:55
[2018-09-16 08:33] LABS: ALB/GLOB RATIO 1.1 (1.1-1.8); ALBUMIN 4.1 g/dL (3.0-4.8); ALT/SGPT 49 U/L (7-56); AST/SGOT 58 U/L (14-36); BLOOD UREA NITROGEN 17 mg/dL (7-21); CALCIUM 9.5 mg/dL (8.4-10.5); GFR NON-AFRICAN AMERICAN 53
[2018-09-16] MEDS: Enoxaparin 40 mg Syringe SC SCH (09:38)
[2018-09-16] MEDS: Cefpodoxime (Vantin) 200 mg Tab PO SCH ×2 (09:39→15:34)
[2018-09-16] MEDS: Magnesium Oxide 400 mg Tab UD PO SCH ×2 (09:40→15:34)
[2018-09-16] MEDS: Bacitracin Ointment 30 GM TUBE TOP SCH ×2 (10:06→17:22)
--- NOTE | 2018-09-16 12:21 | CP.PCM.PN ---
Subjective - Date & Time of Evaluation Date of Evaluation: 09/16/18 Time of Evaluation: 12:20 - Subjective Subjective: Nephrology Consultation Note: Assessment: Stable Acute Kidney Injury (N17.9) likely due to pre-renal state hx of HTN Ca breast s/p radiation and Rt arm lymphedema dysphagia psyhosis hyperlipidemia UTI Plan No acute need for renal replacement therapy at this time. . Hypertension control with meds as ordered. Maintain hemodynamics stable. Avoid hypotension. no ACEI/ARB due to TERESA. hold hctz due to pre renal state. hold aldactone as BP mostly on low side Monitor Input/Output, daily weights and renal function with basic metabolic panel pt to be encouraged to drink more water started vantin for UTI x 3 days course Dose meds/antibiotics for improved GFR. Glycemic control Further work up/management as per primary team Thanks for allowing me to participate in care of your patient. Please call if any Qs. had d/w team Dr Johnson Gibbs Office: [phone] Chief Complaint; unable to obtain Reason for consult: Acute Kidney Injury HPI: Pt is a 48 F with hx of hypertension, Ca breast s/p radiation and Rt arm lymphedema presented with complaints of difficulty swallowing, seen by GI and heme/onc, transferred to [facility] for psychosis and noted to have higher Cr 1.6 Denies OTC/herbal meds or NSAIDs No recent iodinated contrast exposure. No obvious episodes of low BP. renal consult for TERESA ROS: pt unable to provide much hx. denies CP/SOB Physical Examination: General Appearance: Comfortable, in no acute respiratory distress, co-operative . Vitals reviewed and noted as below Head; Atraumatic, normocephalic ENT: no ulcers no thrush. Tongue is midline. Oropharynx: no rash or ulcers. EYES: Pupils are equal, round and reactive to light accommodation. Eye muscles and extraocular movement intact. Sclera is anicteric. Neck; supple no lymphadenopathy, no thyromegaly or bruit Lungs: Normal respiratory rate/effort. Breath sounds bilateral equal and clear Heart: Normal rate. s1s2 normal. No rub or gallop. Extremities: no edema. No varicose veins. Rt arm lymphedema Neurological: Patient is sleepy and not much communicative Skin: Warm and dry. Normal turgor. No rash. Palpitation: Normal elasticity for age Abdomen: Abdomen is soft. Bowel sounds +. There is no abdominal tenderness, no guarding/rigidity no organomegaly Psych: unable MSK: no joint tenderness or swelling. Digits and nails normal, no deformity : kidney or bladder not palpable Labs/imaging reviewed. Past medical history, past surgical history, family history, social history, allergy reviewed and noted as below Family hx: no hx of CKD. Rest non-contributory Objective - Vital Signs/Intake and Output Vital Signs (last 24 hours): Temp Pulse Resp BP Pulse Ox 98.0 F 104 H 18 124/99 H 09/16/18 07:17 09/16/18 09:47 09/16/18 07:17 09/16/18 09:47 - Medications Medications: Current Medications Bacitracin (Bacitracin) 1 gm TOP BID [facility] Last Admin: 09/16/18 10:06 Dose: 1 oin Benztropine Mesylate (Cogentin) 1 mg PO BID [facility] Last Admin: 09/16/18 09:40 Dose: 1 mg Cefpodoxime Proxetil (Vantin) 200 mg PO BID [facility]; Protocol Stop: 09/18/18 16:01 Last Admin: 09/16/18 09:39 Dose: 200 mg Enoxaparin Sodium (Lovenox) 40 mg SC DAILY [facility]; Protocol Last Admin: 09/16/18 09:38 Dose: 40 mg Fluoxetine HCl (Prozac) 30 mg PO DAILY [facility] Last Admin: 09/16/18 09:40 Dose: 30 mg Fluphenazine HCl (Prolixin) 2.5 mg PO AMHS [facility]; Protocol Last Admin: 09/16/18 11:20 Dose: 2.5 mg Folic Acid (Folic Acid) 1 mg PO DAILY [facility] Last Admin: 09/16/18 09:41 Dose: 1 mg Gabapentin (Neurontin) 300 mg PO DAILY [facility]; Protocol Last Admin: 09/16/18 09:40 Dose: 300 mg Haloperidol (Haldol) 3 mg PO Q6 PRN; Protocol PRN Reason: Agitation Last Admin: 09/15/18 12:04 Dose: 3 mg Levothyroxine Sodium (Synthroid) 150 mcg PO 0600 [facility] Last Admin: 09/16/18 05:45 Dose: 150 mcg Lorazepam (Ativan) 1 mg PO Q6 PRN; Protocol PRN Reason: Agitation Last Admin: 09/15/18 12:04 Dose: 1 mg Lorazepam (Ativan) 1 mg PO BID DAT; Protocol Last Admin: 09/16/18 09:40 Dose: 1 mg Lorazepam (Ativan) 1 mg PO HS DAT; Protocol Last Admin: 09/15/18 21:26 Dose: 1 mg Magnesium Oxide (Mag-Ox) 400 mg PO BID DAT Last Admin: 09/16/18 09:40 Dose: 400 mg Pantoprazole Sodium (Protonix Ec Tab) 40 mg PO 0600 DAT Last Admin: 09/16/18 05:45 Dose: 40 mg Propranolol HCl (Inderal) 10 mg PO DAILY DAT Last Admin: 09/16/18 09:47 Dose: 10 mg Quetiapine Fumarate (Seroquel) 200 mg PO HS DAT; Protocol Last Admin: 09/15/18 21:25 Dose: 200 mg - Labs Labs: 09/14/18 09:10 09/16/18 07:45
--- NOTE | 2018-09-16 14:19 | PCM.PYCHPN ---
Psychiatric Progress Note - Psychiatric Progress Note Patient seen today, length of contact: 30 min Patient Chief Complaint: "I know that my is cheating on me..." Problems Identified/Issues Discussed: Suicide/ homicide prevention, past psychiatric h/o, current psychiatric symptoms, medical problems, risk/benefits and alternatives of medications, medications compliance, coping strategies, substance abuse h/o, relapse prevention, importance of follow up with psychiatrist and therapist, discharge plan. Medical Problems: pt was dehydrated dysphagia is better new UTI, on antibiotics Diagnostic Results: 09/14/18 09:10 09/15/18 08:00 Lab Results 09/15/18 08:00: Sodium 140, Potassium 4.0, Chloride 102, Carbon Dioxide 28, Anion Gap 14, BUN 15, Creatinine 1.2, Est GFR ( Amer) 58, Est GFR (Non-Af Amer) 48, Random Glucose 97, Calcium 9.8 09/14/18 17:40: Urine Color Yellow, Urine Appearance Sl cloudy, Urine pH 6.0, Ur Specific [place] 1.010, Urine Protein Negative, Urine Glucose (UA) Negative, Urine Ketones Negative, Urine Blood Small H, Urine Nitrate Positive H, Urine Bilirubin Negative, Urine Urobilinogen 0.2, Ur Leukocyte Esterase Small H, Urine RBC 5 - 10, Urine WBC 20 - 25, Ur Epithelial Cells 10 - 12, Urine Bacteria Many 09/14/18 09:10: RPR Nonreactive 09/14/18 09:10: TSH 3rd Generation 5.59 H 09/14/18 09:10: Sodium 140, Potassium 4.0, Chloride 104, Carbon Dioxide 21, Anion Gap 18, BUN 15, Creatinine 1.6 H, Est GFR ( Amer) 42, Est GFR (Non- Af Amer) 35, Random Glucose 85, Calcium 10.0, Phosphorus 2.8, Magnesium 1.6 L, Total Bilirubin 0.5, AST 89 H D, ALT 57 H, Alkaline Phosphatase 88, Total Protein 8.0, Albumin 4.4, Globulin 3.6, Albumin/Globulin Ratio 1.2, Triglycerides 102, Cholesterol 234 H, LDL Cholesterol Direct 155 H, HDL Cholesterol 60 09/14/18 09:10: WBC 4.7 D, RBC 4.39, Hgb 12.4, Hct 37.8, MCV 86.1, MCH 28.2, MCHC 32.8, RDW 16.4 H, Plt Count 360, MPV 9.4, Gran % 50.8, Lymph % (Auto) 34.7, [place] % (Auto) 13.4 H, Eos % (Auto) 0.9 L, Baso % (Auto) 0.2, Gran # 2.39, Lymph # (Auto) 1.6, [place] # (Auto) 0.6, Eos # (Auto) 0.0, Baso # (Auto) 0.01 Microbiology 09/14/18 17:40 Urine Urine Culture - Preliminary Gram Negative Zen DSM 5 Symptoms Update: Patient is a 48-year-old [place] female with a psychiatric history of Schizoaffective disorder, multiple prior psychiatric admissions both in [place] and the [place]~ most recently hospitalized at [facility] x6 months ago, who was transferred from the medical floor after being treated from 09/10/18-09/12/18 for dysphagia, transfer was uneventful. pt was seen and examined today at the dinning area, pt was on 1:1, pt presented better, looks healthier, despite of psychotic symptoms this check writer was able to have a meaningful conversation, pt was able to communicate in Japanese. pt said that she slept well, "I had a good night sleep", pt asked if her 12 yo daughter could visit her, pt was advised that unit rules are not allowing minors to come to the unit, pt verbalized understanding. pt was much calmer, akathesia is much better. pt still paranoid, feels that her is going to kill her, no evidence for that, pt's visited pt, seems to be sincere towards the pt. as per staff pt was not observed trying to drink from the toilet bowl. as per nursing staff report, patient was psychotic overnight, needs constant redirection, thought process is disorganized, pt is paranoid. patient remains quite unpredictable and impulsive. poor insight and judgment. Diagnostic Results: Schizoaffective Disorder r/o delirium Medication Change: Yes (Prolixin increased) Medical Record Reviewed: Yes Consults ordered or reviewed: patient was seen by medical team as well as nephrology team Mental Status Examination - Cognitive Function Orientation: Place Memory: Impaired Attention: Poor Concentration: Poor Association: Loose Fund of Knowledge: Poor - Mood Mood: Depressed, Anxious - Affect Affect: Broad, Depressed - Formal Thought Process Formal Thought Process: Delusions, Paranoia, Loosening of associations - Suicidal Ideation Suicidal Ideation: No - Homicidal Ideation Homicidal Ideation: No Goal/Treatment Plan - Goal/Treatment Plan Need for Continued Stay: Remain at risks for inpatient hospitalization, Severe depression anxiety, Discharge may exacerbated symptoms, Severe functional impa irment Progress Toward Problem(s) and Goals/Treatment Plan: group, milieu and supportive tx (as tolerated) Seroquel and abilify po d/c prolixin 5mg po bid for psychosis Prozac 30 mg daily for depression and anxiety Ativan 1mg po bid and hs for akathesia, anxiety and mood control Abilify Maintenna was provided to patient on 09/08/18 Haldol 3 mg + Ativan 1 mg q6 prn: agitation will d/c 1:1 consultation for discharge plan and social issues Family involvement, if pt is willing Follow up on labs Will monitor closely Pt was educated about risk/benefits and alternatives of medications, coping strategies (safety plan, suicide prevention), relapse prevention, importance of follow up with psychiatrist and therapist, stay away from drugs/alcohol/smoking Estimated Date of D/C: 09/26/18
--- NOTE | 2018-09-16 15:28 | PN ---
DATE: 09/15/2018 SUBJECTIVE: The patient is in ambulation room. She has no agitations today. She tried to see a plastic printer, , a voice of the plastic printer, she tried to see him, he was not there but she heard his voice and she wants see him and she . Physically, she is okay. She is eating but she does not like the food, but otherwise there is no nausea, vomiting. No diarrhea. No physical complaints. PHYSICAL EXAMINATION: VITAL SIGNS: On 09/15, temperature 97.8, heart rate 90, blood pressure 106/70, respirations 19. HEAD AND NECK: Normal. No JVD. No thyromegaly. CHEST: Clear. Good air entry. CARDIAC: First sound and second sound normal ABDOMEN: Soft, nontender. EXTREMITIES: No edema. NEUROLOGIC: Normal. LABORATORY DATA: Show white count normal. CBC; 4.7 white count, hemoglobin 12.4, hematocrit 37.8, platelets 360,000. Chemistry: Noted for sodium 140, potassium 4, chloride 102, bicarb 28, BUN is 15, creatinine 1.2, which is normal. TSH is 5.59, elevated. IMPRESSION: 1. The patient has psychotic disease, schizophrenia with acute exacerbation due to noncompliance of her medication she was not taking it. Currently, she is getting Ativan p.r.n. Haldol was given today because of agitations and continue Seroquel 200 at night and follow up with her psychiatrist. 2. The patient had also urinalysis, which shows 20 to 25 white blood cells, nitrite, we will continue and also with an E. coli, and the urinary tract infection. The patient started on as recommended by nephrology on the case. She seems otherwise doing better. 3. Acute renal insufficiency due to dehydration, is better. 4. Overweight. 5. Hypothyroidism, increase the Synthroid to 150 once a day. PLAN: Continue current medication as needed. Continue GI and DVT prophylaxis. Follow up clinically. Igor Ca MD
[2018-09-17] MEDS: Pantoprazole 40 mg EC Tab PO SCH (06:25)
[2018-09-17] MEDS: Levothyroxine 150 MCG TAB PO SCH (06:25)
[2018-09-17] MEDS: Cefpodoxime (Vantin) 200 mg Tab PO SCH ×2 (09:28→16:38)
[2018-09-17] MEDS: Magnesium Oxide 400 mg Tab UD PO SCH ×2 (09:29→16:38)
[2018-09-17] MEDS: Enoxaparin 40 mg Syringe SC SCH (09:41)
[2018-09-17] MEDS: Bacitracin Ointment 30 GM TUBE TOP SCH ×2 (12:19→16:40)
--- NOTE | 2018-09-17 13:05 | PCM.PYCHPN ---
Psychiatric Progress Note - Psychiatric Progress Note Patient seen today, length of contact: 30 min Patient Chief Complaint: "unknown people are putting bad thoughts in my mind" Problems Identified/Issues Discussed: Suicide/ homicide prevention, past psychiatric h/o, current psychiatric symptoms, medical problems, risk/benefits and alternatives of medications, medications compliance, coping strategies, substance abuse h/o, relapse prevention, importance of follow up with psychiatrist and therapist, discharge plan. Medical Problems: pt was dehydrated dysphagia is better new UTI, on antibiotics Diagnostic Results: 09/14/18 09:10 09/15/18 08:00 Lab Results 09/15/18 08:00: Sodium 140, Potassium 4.0, Chloride 102, Carbon Dioxide 28, Anion Gap 14, BUN 15, Creatinine 1.2, Est GFR ( Amer) 58, Est GFR (Non-Af Amer) 48, Random Glucose 97, Calcium 9.8 09/14/18 17:40: Urine Color Yellow, Urine Appearance Sl cloudy, Urine pH 6.0, Ur Specific [place] 1.010, Urine Protein Negative, Urine Glucose (UA) Negative, Urine Ketones Negative, Urine Blood Small H, Urine Nitrate Positive H, Urine Bilirubin Negative, Urine Urobilinogen 0.2, Ur Leukocyte Esterase Small H, Urine RBC 5 - 10, Urine WBC 20 - 25, Ur Epithelial Cells 10 - 12, Urine Bacteria Many 09/14/18 09:10: RPR Nonreactive 09/14/18 09:10: TSH 3rd Generation 5.59 H 09/14/18 09:10: Sodium 140, Potassium 4.0, Chloride 104, Carbon Dioxide 21, Anion Gap 18, BUN 15, Creatinine 1.6 H, Est GFR ( Amer) 42, Est GFR (Non- Af Amer) 35, Random Glucose 85, Calcium 10.0, Phosphorus 2.8, Magnesium 1.6 L, Total Bilirubin 0.5, AST 89 H D, ALT 57 H, Alkaline Phosphatase 88, Total Protein 8.0, Albumin 4.4, Globulin 3.6, Albumin/Globulin Ratio 1.2, Triglycerides 102, Cholesterol 234 H, LDL Cholesterol Direct 155 H, HDL Cholesterol 60 09/14/18 09:10: WBC 4.7 D, RBC 4.39, Hgb 12.4, Hct 37.8, MCV 86.1, MCH 28.2, MCHC 32.8, RDW 16.4 H, Plt Count 360, MPV 9.4, Gran % 50.8, Lymph % (Auto) 34.7, [place] % (Auto) 13.4 H, Eos % (Auto) 0.9 L, Baso % (Auto) 0.2, Gran # 2.39, Lymph # (Auto) 1.6, [place] # (Auto) 0.6, Eos # (Auto) 0.0, Baso # (Auto) 0.01 Microbiology 09/14/18 17:40 Urine Urine Culture - Preliminary Gram Negative Zen DSM 5 Symptoms Update: Patient is a 48-year-old [place] female with a psychiatric history of Schizoaffective disorder, multiple prior psychiatric admissions both in [place] and the [place]~ most recently hospitalized at [facility] x6 months ago, who was transferred from the medical floor after being treated f rom 09/10/18-09/12/18 for dysphagia, transfer was uneventful. pt was [facility] and [facility], pt is off 1:1, pt presented better, looks healthier, despite of psychotic symptoms this typewriters functional tester was able to have a meaningful conversation. Pt was interviewed through the [employer] translation services ID #[id number]. pt presented to be psychotic, pt is saying that God is punishing her because she is not preying the way she supposed to, pt also reported that other people could sent foreign "bad messages to my head, that is why I cannot prey". there are also some positive changes, pt is less paranoid towards her . pt was observed talking to her the other evening, she even hugged him. pt has dry mouth, was provided with chopstick and mouth wash. pt was much calmer, akathesia is much better. as per staff pt was not observed trying to drink from the toilet bowl, pt had history of urine/feces ingestion. as per nursing staff report, patient is psychotic, needs constant redirection, thought process is disorganized, pt is paranoid. pt still has poor insight and judgment. pt tolerates meds well, AIMS 0, no EPS. Diagnostic Results: Schizoaffective Disorder r/o delirium Medication Change: Yes (cogentin dc, seroquel d/c, ambien started) Medical Record Reviewed: Yes Consults ordered or reviewed: patient was seen by medical team as well as nephrology team Mental Status Examination - Cognitive Function Orientation: Place Memory: Impaired Attention: Poor (some improvement) Concentration: Poor (some improvement) Association: Loose Fund of Knowledge: Poor - Mood Mood: Depressed ("I feel depressed"), Anxious - Affect Affect: Constricted - Speech Speech: Appropriate - Formal Thought Process Formal Thought Process: Delusions, Paranoia, Loosening of associations - Suicidal Ideation Suicidal Ideation: No - Homicidal Ideation Homicidal Ideation: No Goal/Treatment Plan - Goal/Treatment Plan Need for Continued Stay: Remain at risks for inpatient hospitalization, Severe depression anxiety, Discharge may exacerbated symptoms, Severe functional impairment Progress Toward Problem(s) and Goals/Treatment Plan: group, milieu and supportive tx (as tolerated) Seroquel and abilify po d/c ambien as needed for insomnia prolixin 5mg po bid for psychosis Prozac 40 mg daily for depression and anxiety Ativan 1mg po bid and hs for akathesia, anxiety and mood control Abilify Maintenna was provided to patient on 09/08/18 Haldol 3 mg + Ativan 1 mg q6 prn: agitation will d/c 1:1 consultation for discharge plan and social issues Family involvement, if pt is willing Follow up on labs Will monitor closely Pt was educated about risk/benefits and alternatives of medications, coping strategies (safety plan, suicide prevention), relapse prevention, importance of follow up with psychiatrist and therapist, stay away from drugs/alcohol/smoking Estimated Date of D/C: 09/26/18
--- NOTE | 2018-09-17 14:14 | PN ---
DATE: 09/16/2018 SUBJECTIVE: The patient seems walking around. It seems her thoughts are better. She is not pushing any abnormal thoughts today. She seems stable. No agitations. PHYSICAL EXAMINATION: VITAL SIGNS: Temperature 98, heart rate 87, blood pressure 98/59, respirations 18. HEAD AND NECK: Normal. No JVD. No thyromegaly. CHEST: Clear bilateral. CARDIAC: First sound and second sound are normal. ABDOMEN: Soft, nontender. EXTREMITY: No edema. NEUROLOGIC: Normal. IMPRESSION AND PLAN: 1. Urinary tract infection. Gram negative. Continue Vantin. 2. History of renal insufficiency, resolved. Encouraged p.o. drinking. 3. Dysphagia. We will continue pureed diet. Dr. Bob has been on consult. We will see his input. The patient is able to eat normal. No evidence of vomiting. 4. The patient has chronic schizophrenia with abnormal thinking and currently stable. Not trying to drink her urine or touch her stools. She is stable. Better than before. 5. Overweight, hypothyroidism, anemia. Continue current therapy. We will follow up clinically. Continue current psychiatric treatments. The patient needs to be followed up by psychiatrist on a regular basis. Need to be sure she takes her medications on a regular basis. Igor Ca MD
[2018-09-18] MEDS: Pantoprazole 40 mg EC Tab PO SCH (06:27)
[2018-09-18] MEDS: Levothyroxine 150 MCG TAB PO SCH (06:27)
[2018-09-18] MEDS: Cefpodoxime (Vantin) 200 mg Tab PO SCH ×2 (07:53→15:17)
[2018-09-18] MEDS: Bacitracin Ointment 30 GM TUBE TOP SCH ×2 (07:54→15:18)
[2018-09-18] MEDS: Magnesium Oxide 400 mg Tab UD PO SCH ×2 (07:54→15:16)
[2018-09-18] MEDS: Enoxaparin 40 mg Syringe SC SCH (07:56)
--- NOTE | 2018-09-18 11:59 | PN ---
DATE: 09/17/2018 SUBJECTIVE: A 48-year-old female. Patient is clinically, physically she is stable. She has no complaints. She is still having thoughts that somebody talking about her outside, what did he think which refect still psychiatric illness, still need to be controlled. Discussed otherwise she has no agitations and no physical distress and she is stable. PHYSICAL EXAMINATION: VITAL SIGNS: Temperature 97.1, heart rate 80, blood pressure 116/62, respirations 18. HEAD AND NECK: Normal. No JVD, no thyromegaly. CHEST: Clear bilaterally. CARDIAC: First sound and second sound normal. ABDOMEN: Soft, nontender. EXTREMITIES: No edema. She has right arm swelling post mastectomy. NEUROLOGIC: Normal. IMPRESSION AND PLAN: 1. Acute worsening of her chronic schizophrenia relapsing symptoms. Patient noncompliant with her medications and currently she seems better, but still under. Medication, she is getting Ativan p.r.n. for agitation. She is also getting fluphenazine which is Prolixin 5 mg daily and 5 mg in the morning and at night of the Prolixin which is fluphenazine, it is antipsychotic and it is 3 times a day, and she is also getting Prozac 30 mg daily, also getting Inderal 10 mg daily and currently she is off any Abilify and off any Seroquel. We will monitor her clinical status on this current new medications and we will observe any side effects. She is also getting some home medications subcu every 2 weeks, it is antipsychotic therapy. She is getting Haldol p.r.n. for any agitation or exacerbation of her psychotic symptom. 2. Urinary tract infections, continue Vantin for gram-negative bacteremia . 3. Hypothyroidism, continue Synthroid 150 mcg daily. 4. Dry mouth. medications, continue saliva substitutes 3 times a day. Try and continue current therapy, followup clinically. Igor Ca MD
--- NOTE | 2018-09-18 13:47 | PCM.PYCHPN ---
Psychiatric Progress Note - Psychiatric Progress Note Patient seen today, length of contact: 30 min Patient Chief Complaint: "what is about me, not me but you, not you but him?" Problems Identified/Issues Discussed: Suicide/ homicide prevention, past psychiatric h/o, current psychiatric symptoms, medical problems, risk/benefits and alternatives of medications, medications compliance, coping strategies, substance abuse h/o, relapse prevention, importance of follow up with psychiatrist and therapist, discharge plan. Medical Problems: pt was dehydrated dysphagia is better new UTI, on antibiotics Diagnostic Results: 09/14/18 09:10 09/15/18 08:00 Lab Results 09/15/18 08:00: Sodium 140, Potassium 4.0, Chloride 102, Carbon Dioxide 28, Anion Gap 14, BUN 15, Creatinine 1.2, Est GFR ( Amer) 58, Est GFR (Non-Af Amer) 48, Random Glucose 97, Calcium 9.8 09/14/18 17:40: Urine Color Yellow, Urine Appearance Sl cloudy, Urine pH 6.0, Ur Specific [place] 1.010, Urine Protein Negative, Urine Glucose (UA) Negative, Urine Ketones Negative, Urine Blood Small H, Urine Nitrate Positive H, Urine Bilirubin Negative, Urine Urobilinogen 0.2, Ur Leukocyte Esterase Small H, Urine RBC 5 - 10, Urine WBC 20 - 25, Ur Epithelial Cells 10 - 12, Urine Bacteria Many 09/14/18 09:10: RPR Nonreactive 09/14/18 09:10: TSH 3rd Generation 5.59 H 09/14/18 09:10: Sodium 140, Potassium 4.0, Chloride 104, Carbon Dioxide 21, Anion Gap 18, BUN 15, Creatinine 1.6 H, Est GFR ( Amer) 42, Est GFR (Non- Af Amer) 35, Random Glucose 85, Calcium 10.0, Phosphorus 2.8, Magnesium 1.6 L, Total Bilirubin 0.5, AST 89 H D, ALT 57 H, Alkaline Phosphatase 88, Total Protein 8.0, Albumin 4.4, Globulin 3.6, Albumin/Globulin Ratio 1.2, Triglycerides 102, Cholesterol 234 H, LDL Cholesterol Direct 155 H, HDL Cholesterol 60 09/14/18 09:10: WBC 4.7 D, RBC 4.39, Hgb 12.4, Hct 37.8, MCV 86.1, MCH 28.2, MCHC 32.8, RDW 16.4 H, Plt Count 360, MPV 9.4, Gran % 50.8, Lymph % (Auto) 34.7, [place] % (Auto) 13.4 H, Eos % (Auto) 0.9 L, Baso % (Auto) 0.2, Gran # 2.39, Lymph # (Auto) 1.6, [place] # (Auto) 0.6, Eos # (Auto) 0.0, Baso # (Auto) 0.01 Microbiology 09/14/18 17:40 Urine Urine Culture - Preliminary Gram Negative Zen DSM 5 Symptoms Update: Patient is a 48-year-old Brazilian female with a psychiatric history of Schizoaffective disorder, multiple prior psychiatric admissions both in [place] and the [place]~ most recently hospitalized at [facility] x6 months ago, who was transferred from the medical floor after being treated fr om 09/10/18-09/12/18 for dysphagia, transfer was uneventful. pt was seen and examined today next to the nursing station, pt presented not well, pt asked disorganized questions, had difficulties to stay focused and concentrate. pt asked : "what is about me, not me but you, not you but him?", no option to have a meaningful conversation. pt has tendency of screaming with no reasons, preying on the floor, RN called this ticket writer because pt was not able to calm down, IM of Ativan was recommended. as per staff pt was not observed trying to drink from the toilet bowl, pt had history of urine/feces ingestion. as per nursing staff report, patient is psychotic, needs constant redirection, thought process is disorganized, pt is paranoid. pt still has poor insight and judgment. pt tolerates meds well, AIMS 0, no EPS. Diagnostic Results: Schizoaffective Disorder r/o delirium Medication Change: Yes (prolixin increased, haldol d/c, geodon/ativan PRN started) Medical Record Reviewed: Yes Consults ordered or reviewed: patient was seen by medical team as well as nephrology team Mental Status Examination - Cognitive Function Orientation: Place Memory: Impaired Attention: Poor (some improvement) Concentration: Poor (some improvement) Association: Loose Fund of Knowledge: Poor - Mood Mood: Depressed ("I feel depressed"), Anxious - Affect Affect: Constricted - Speech Speech: Appropriate - Formal Thought Process Formal Thought Process: Delusions, Paranoia, Loosening of associations - Suicidal Ideation Suicidal Ideation: No - Homicidal Ideation Homicidal Ideation: No Goal/Treatment Plan - Goal/Treatment Plan Need for Continued Stay: Remain at risks for inpatient hospitalization, Severe depression anxiety, Discharge may exacerbated symptoms, Severe functional imp airment Progress Toward Problem(s) and Goals/Treatment Plan: group, milieu and supportive tx (as tolerated) Seroquel and abilify po d/c ambien as needed for insomnia prolixin 10mg po amhs for psychosis Prozac 40 mg daily for depression and anxiety Ativan 1mg po bid and hs for akathesia, anxiety and mood control Abilify Maintenna was provided to patient on 09/08/18 geodon and ativan for agitation SW consultation for discharge plan and social issues Family involvement, if pt is willing Follow up on labs Will monitor closely Pt was educated about risk/benefits and alternatives of medications, coping strategies (safety plan, suicide prevention), relapse prevention, importance of follow up with psychiatrist and therapist, stay away from drugs/alcohol/smoking Estimated Date of D/C: 09/26/18
[2018-09-19] MEDS: Levothyroxine 150 MCG TAB PO SCH (06:00)
[2018-09-19] MEDS: Pantoprazole 40 mg EC Tab PO SCH (06:00)
[2018-09-19] MEDS: Magnesium Oxide 400 mg Tab UD PO SCH ×2 (09:50→15:31)
[2018-09-19] MEDS: Bacitracin Ointment 30 GM TUBE TOP SCH ×2 (09:52→15:27)
[2018-09-19] MEDS: Enoxaparin 40 mg Syringe SC SCH (09:53)
[2018-09-19 10:00] LABS: BASO # 0.01 K/mm3 (0.0-2.0); BASO % 0.2 % (0.0-3.0); EOS % 0.7 % (1.5-5.0); GRAN # 2.43 (1.4-6.5); GRAN % 54.3 % (50.0-68.0); HEMOGLOBIN 12.2 g/dL (12.0-16.0); LYMPH # 1.3 (1.2-3.4); MEAN CORPUSCULAR HGB CONC 31.9 g/dl (31.0-37.0); MEAN PLATELET VOLUME 9.6 fl (7.0-11.0); MONO # 0.7 (0.1-0.6); MONO % 14.8 % (1.0-6.0); RBC 4.35 10^6/uL (3.5-6.1); RED CELL DISTRIBUTION WIDTH 16.6 % (11.5-14.5); WHITE BLOOD COUNT 4.5 10^3/uL (4.5-11.0)
--- NOTE | 2018-09-19 11:28 | CP.PCM.PN ---
<Arpan Barnett - Last Filed: 09/19/18 11:25> Subjective - Date & Time of Evaluation Date of Evaluation: 09/19/18 Time of Evaluation: 11:25 - Subjective Subjective: PGY-2 GI progress note for Dr Bob Patient does not answer all questions, at times mumbles to herself. Per nursing patient attempted to drink water from toilet bowel yesterday. Patient tolerating puree diet. Denies choking or vomiting. Admits to bowel movement yesterday. Objective - Vital Signs/Intake and Output Vital Signs (last 24 hours): Temp Pulse Resp BP Pulse Ox 97.3 F L 91 H 20 115/75 09/19/18 07:28 09/19/18 07:28 09/19/18 07:28 09/19/18 07:28 - Medications Medications: Current Medications Bacitracin (Bacitracin) 1 gm TOP BID [facility] Last Admin: 09/19/18 09:52 Dose: 1 oin Clozapine (Clozaril) 12.5 mg PO DAILY [facility]; Protocol Enoxaparin Sodium (Lovenox) 40 mg SC DAILY [facility]; Protocol Last Admin: 09/19/18 09:53 Dose: 40 mg Fluoxetine HCl (Prozac) 30 mg PO DAILY [facility] Last Admin: 09/19/18 09:51 Dose: 30 mg Folic Acid (Folic Acid) 1 mg PO DAILY [facility] Last Admin: 09/19/18 09:51 Dose: 1 mg Gabapentin (Neurontin) 300 mg PO DAILY [facility]; Protocol Last Admin: 09/19/18 09:50 Dose: 300 mg Home Med (Home Med) 0.8 unit SC Q2W DAT Last Admin: 09/17/18 21:25 Dose: 0.8 unit Levothyroxine Sodium (Synthroid) 150 mcg PO 0600 DAT Last Admin: 09/19/18 06:00 Dose: 150 mcg Lorazepam (Ativan) 1 mg PO Q6 PRN; Protocol PRN Reason: Agitation Last Admin: 09/18/18 07:54 Dose: 1 mg Lorazepam (Ativan) 1 mg PO BID [facility]; Protocol Last Admin: 09/19/18 09:52 Dose: Not Given Lorazepam (Ativan) 1 mg PO HS DAT; Protocol Last Admin: 09/18/18 22:50 Dose: Not Given Lorazepam (Ativan) 2 mg PO Q6H PRN; Protocol PRN Reason: anxiety/agitation Lorazepam (Ativan) 2 mg IM Q6 PRN; Protocol PRN Reason: Agitation Last Admin: 09/19/18 08:52 Dose: 2 mg Magnesium Oxide (Mag-Ox) 400 mg PO BID [facility] Last Admin: 09/19/18 09:50 Dose: 400 mg Pantoprazole Sodium (Protonix Ec Tab) 40 mg PO 0600 [facility] Last Admin: 09/19/18 06:00 Dose: 40 mg Propranolol HCl (Inderal) 10 mg PO DAILY [facility] Last Admin: 09/19/18 09:53 Dose: Not Given Saliva Substitute (Saliva Substitute) 0 ml PO TID PRN PRN Reason: Dry mouth Ziprasidone (Geodon Cap) 20 mg PO TID PRN; Protocol PRN Reason: agitation/psychosis Last Admin: 09/18/18 15:15 Dose: 20 mg Ziprasidone (Geodon Inj) 20 mg IM Q6 PRN; Protocol PRN Reason: severe agitation Last Admin: 09/19/18 08:51 Dose: 20 mg Zolpidem Tartrate (Ambien) 5 mg PO HS PRN; Protocol PRN Reason: Insomnia - Labs Labs: 09/19/18 09:55 09/16/18 07:45 - Additional Findings Additional findings: - Constitutional Appears: Non-toxic, No Acute Distress - Head Exam Head Exam: ATRAUMATIC, NORMOCEPHALIC - Eye Exam Eye Exam: EOMI, PERRL. absent: Scleral icterus Pupil Exam: PERRL. absent: Miosis, Mydriatic - ENT Exam ENT Exam: Mucous Membranes Moist, Normal Oropharynx - Neck Exam Neck Exam: Full ROM, Normal Inspection - Respiratory Exam Respiratory Exam: Clear to Ausculation Bilateral. absent: Rales, Rhonchi, Wheezes - Cardiovascular Exam Cardiovascular Exam: RRR, +S1, +S2. absent: Gallop, Rubs - GI/Abdominal Exam GI & Abdominal Exam: Soft, Normal Bowel Sounds. absent: Distended, Firm, Guarding, Rigid, Tenderness, Organomegaly, Rebound - Extremities Exam Extremities Exam: Normal Inspection. absent: Pedal Edema - Neurological Exam Neurological Exam: Alert, Awake - Psychiatric Exam Psychiatric exam: Normal Affect, Normal Mood - Skin Skin Exam: Dry, Intact, Normal Color, Warm Assessment and Plan - Assessment and Plan (Free Text) Plan: 48 year old female with PMH of Stage III Right Breast Cancer s/p right mastectomy with chemoradiation in 2003 and right breast reconstruction 2012, and chronic right arm lymphedema presenting with difficulty swallowing. Active treatment of dysphagia with EGD showing tortuous esophagus, decreases esophageal compliance, gastritis, and flattening of duodenal mucosa with pathology pending. Modified barium swallow 01/2018 showed no signs of aspiration. EGD 03/2018 to evaluate dysphagia showed mild upper/mid-esophagitis without Osborne's or eosinophilic esophagitis. EGD 07/2016 to evaluate iron deficiency anemia showed H. pylori negative gastritis. Colonoscopy 07/2016 showed a 1cm ascending inflammatory polyp and internal hemorrhoids. Plan: -continue puree diet -EGD pathology was unremarkable -CT C/A/P and esophagram without acute pathology -continue psych management of mental health -will benefit from outpatient GI follow up <Tan Bob V - Last Filed: 09/19/18 23:19> Objective - Vital Signs/Intake and Output Vital Signs (last 24 hours): Temp Pulse Resp BP Pulse Ox 97.3 F L 60 20 116/88 09/19/18 07:28 09/19/18 16:00 09/19/18 07:28 09/19/18 16:00 - Medications Medications: Current Medications Bacitracin (Bacitracin) 1 gm TOP BID [facility] Last Admin: 09/19/18 15:27 Dose: 1 oin Enoxaparin Sodium (Lovenox) 40 mg SC DAILY [facility]; Protocol Last Admin: 09/19/18 09:53 Dose: 40 mg Fluoxetine HCl (Prozac) 30 mg PO DAILY [facility] Last Admin: 09/19/18 09:51 Dose: 30 mg Fluphenazine HCl (Prolixin) 10 mg PO BID DAT; Protocol Last Admin: 09/19/18 15:31 Dose: 10 mg Fluphenazine HCl (Prolixin) 10 mg PO HS DAT; Protocol Last Admin: 09/19/18 21:00 Dose: 10 mg Folic Acid (Folic Acid) 1 mg PO DAILY [facility] Last Admin: 09/19/18 09:51 Dose: 1 mg Gabapentin (Neurontin) 300 mg PO DAILY DAT; Protocol Last Admin: 09/19/18 09:50 Dose: 300 mg Home Med (Home Med) 0.8 unit SC Q2W DAT Last Admin: 09/17/18 21:25 Dose: 0.8 unit Levothyroxine Sodium (Synthroid) 150 mcg PO 0600 DAT Last Admin: 09/19/18 06:00 Dose: 150 mcg Lorazepam (Ativan) 1 mg PO Q6 PRN; Protocol PRN Reason: Agitation Last Admin: 09/18/18 07:54 Dose: 1 mg Lorazepam (Ativan) 1 mg PO BID [facility]; Protocol Last Admin: 09/19/18 15:30 Dose: 1 mg Lorazepam (Ativan) 1 mg PO HS DAT; Protocol Last Admin: 09/19/18 21:00 Dose: 1 mg Lorazepam (Ativan) 2 mg PO Q6H PRN; Protocol PRN Reason: anxiety/agitation Lorazepam (Ativan) 2 mg IM Q6 PRN; Protocol PRN Reason: Agitation Last Admin: 09/19/18 08:52 Dose: 2 mg Magnesium Oxide (Mag-Ox) 400 mg PO BID [facility] Last Admin: 09/19/18 15:31 Dose: 400 mg Pantoprazole Sodium (Protonix Ec Tab) 40 mg PO 0600 [facility] Last Admin: 09/19/18 06:00 Dose: 40 mg Propranolol HCl (Inderal) 10 mg PO DAILY [facility] Last Admin: 09/19/18 09:53 Dose: Not Given Saliva Substitute (Saliva Substitute) 0 ml PO TID PRN PRN Reason: Dry mouth Ziprasidone (Geodon Cap) 20 mg PO TID PRN; Protocol PRN Reason: agitation/psychosis Last Admin: 09/18/18 15:15 Dose: 20 mg Ziprasidone (Geodon Inj) 20 mg IM Q6 PRN; Protocol PRN Reason: severe agitation Last Admin: 09/19/18 08:51 Dose: 20 mg Zolpidem Tartrate (Ambien) 5 mg PO HS PRN; Protocol PRN Reason: Insomnia Last Admin: 09/19/18 21:00 Dose: 5 mg - Labs Labs: 09/19/18 09:55 09/16/18 07:45 Attending/Attestation - Attestation I have personally seen and examined this patient.: Yes I have fully participated in the care of the patient.: Yes I have reviewed all pertinent clinical information, including history, physical exam and plan: Yes Notes (Text): This is an addendum to GI followup report dictated by the Tar Chaser. The patient was seen and evaluated earlier. Medical records, lab studies, imagings were reviewed. Last 24 hours events reviewed. Agreed with the above treatment plan as outlined in Tar Chaser 's notes with the addition of the following Patient still remains very psychotic Continue the diet as advised puree diet 09/19/18 23:18
--- NOTE | 2018-09-19 12:28 | PN ---
DATE: 09/19/2018 SUBJECTIVE: Yomaira Will is a psych patient. She is still having problem with the thought process. She sometimes did get also agitated. The patient physically has no complaint. She is tolerating her diet. No nausea. No vomiting. No fever. No burning urinations. Please be advised this is a note for 09/19/2018. PHYSICAL EXAMINATION: VITAL SIGNS: Temperature 97, heart rate 68, blood pressure 116/80, respirations 20, and saturating 99% on room air. HEAD AND NECK: Normal. No JVD. No thyromegaly. CHEST: Clear bilateral. CARDIAC: First sound and second sound normal. ABDOMEN: Soft, nontender. EXTREMITIES: No edema. Right upper extremity lymphedema secondary to mastectomy. NEUROLOGIC: She moves all extremities. She is alert, awake, oriented x3. IMPRESSION AND PLAN: 1. The patient's urinary tract infection, gram negative. Continue Vantin. 2. Hypothyroidism. Continue levothyroxine, we increased it recently. 3. The patient had psychosis severe depression and anxiety. Continue antidepressant and anti-anxiety medications plus mood stabilizer medications. The patient is currently on Prolixin 10 mg p.o. in the morning and night for psychosis in addition to Prozac 40, Ativan p.r.n., Ambien for sleep and she has been on Abilify maintenance regimen on 09/08/2018. The patient is also getting Geodon and Ativan for agitations. 4. We will continue to follow up with other doctor. 5. The patient is not suicidal or homicidal. She is not drinking or trying to do any prudish behavior on initial presentation. She seems stable now, but getting agitations. Her thoughts are still not straight. We will follow up with the psychiatrist. Igro Ca MD
--- NOTE | 2018-09-19 12:39 | PCM.PYCHPN ---
Psychiatric Progress Note - Psychiatric Progress Note Patient seen today, length of contact: 30 min Patient Chief Complaint: "I want to keep all the women away from my " Problems Identified/Issues Discussed: Suicide/ homicide prevention, past psychiatric h/o, current psychiatric symptoms, medical problems, risk/benefits and alternatives of medications, medications compliance, coping strategies, substance abuse h/o, relapse prevention, importance of follow up with psychiatrist and therapist, discharge plan. Medical Problems: pt was dehydrated dysphagia is better new UTI, on antibiotics Diagnostic Results: 09/14/18 09:10 09/15/18 08:00 Lab Results 09/15/18 08:00: Sodium 140, Potassium 4.0, Chloride 102, Carbon Dioxide 28, Anion Gap 14, BUN 15, Creatinine 1.2, Est GFR ( Amer) 58, Est GFR (Non-Af Amer) 48, Random Glucose 97, Calcium 9.8 09/14/18 17:40: Urine Color Yellow, Urine Appearance Sl cloudy, Urine pH 6.0, Ur Specific [place] 1.010, Urine Protein Negative, Urine Glucose (UA) Negative, Urine Ketones Negative, Urine Blood Small H, Urine Nitrate Positive H, Urine Bilirubin Negative, Urine Urobilinogen 0.2, Ur Leukocyte Esterase Small H, Urine RBC 5 - 10, Urine WBC 20 - 25, Ur Epithelial Cells 10 - 12, Urine Bacteria Many 09/14/18 09:10: RPR Nonreactive 09/14/18 09:10: TSH 3rd Generation 5.59 H 09/14/18 09:10: Sodium 140, Potassium 4.0, Chloride 104, Carbon Dioxide 21, Anion Gap 18, BUN 15, Creatinine 1.6 H, Est GFR ( Amer) 42, Est GFR (Non- Af Amer) 35, Random Glucose 85, Calcium 10.0, Phosphorus 2.8, Magnesium 1.6 L, Total Bilirubin 0.5, AST 89 H D, ALT 57 H, Alkaline Phosphatase 88, Total Protein 8.0, Albumin 4.4, Globulin 3.6, Albumin/Globulin Ratio 1.2, Triglycerides 102, Cholesterol 234 H, LDL Cholesterol Direct 155 H, HDL Cholesterol 60 09/14/18 09:10: WBC 4.7 D, RBC 4.39, Hgb 12.4, Hct 37.8, MCV 86.1, MCH 28.2, MCHC 32.8, RDW 16.4 H, Plt Count 360, MPV 9.4, Gran % 50.8, Lymph % (Auto) 34.7, [place] % (Auto) 13.4 H, Eos % (Auto) 0.9 L, Baso % (Auto) 0.2, Gran # 2.39, Lymph # (Auto) 1.6, [place] # (Auto) 0.6, Eos # (Auto) 0.0, Baso # (Auto) 0.01 Microbiology 09/14/18 17:40 Urine Urine Culture - Preliminary Gram Negative [facility] Results - last 24 hr 09/19/18 09:55 WBC 4.5 RBC 4.35 Hgb 12.2 Hct 38.3 MCV 88.0 MCH 28.0 MCHC 31.9 RDW 16.6 H Plt Count 318 MPV 9.6 Gran % 54.3 Lymph % (Auto) 30.0 [place] % (Auto) 14.8 H Eos % (Auto) 0.7 L Baso % (Auto) 0.2 Gran # 2.43 Lymph # (Auto) 1.3 [place] # (Auto) 0.7 H Eos # (Auto) 0.0 Baso # (Auto) 0.01 DSM 5 Symptoms Update: Patient is a 48-year-old [place] female with a psychiatric history of Schizoaffective disorder, multiple prior psychiatric admissions both in [place] and the [place]~ most recently hospitalized at [facility] x6 months ago, who was transferred from the medical floor after being treated from 09/10/18-09/12/18 for dysphagia, transfer was uneventful. pt was seen and examined today at the treatment team meeting, pt presented to be disorganized, as per staff pt was observed trying to eat her excrements again, staff monitoring pt's closely, constant redirection required. Pt gave explanation that she is "scarifying", pt said that her keel press operator advised her to eat bread and drink water and prey, pt said if she will eat bread and eat her own feces "it will be better, in this way I will scarify more...", pt had such behavior in order to "keep away all the women from my ". This mortgage or loan underwriter educated pt about the clozaril, risk, benefits and alternatives were discussed with pt, pt asked to contact her [place], this mortgage or loan underwriter make a phone call in front of the pt, pt's agreed to start Clozaril. as per nursing staff report, patient is psychotic, needs constant redirection, thought process is disorganized, pt is paranoid, try to eat her own excrements. . pt still has poor insight and judgment. pt tolerates meds well, AIMS 0, no EPS. Diagnostic Results: Schizoaffective Disorder r/o delirium Medication Change: Yes (prolixin d/c, clozaril started) Medical Record Reviewed: Yes Consults ordered or reviewed: patient was seen by medical team as well as nephrology team Mental Status Examination - Cognitive Function Orientation: Place Memory: Impaired Attention: Poor Concentration: Poor Association: Loose Fund of Knowledge: Poor - Mood Mood: Depressed ("I am not well"), Anxious - Affect Affect: Constricted - Speech Speech: Appropriate - Formal Thought Process Formal Thought Process: Delusions, Paranoia, Loosening of associations - Suicidal Ideation Suicidal Ideation: No - Homicidal Ideation Homicidal Ideation: No Goal/Treatment Plan - Goal/Treatment Plan Need for Continued Stay: Remain at risks for inpatient hospitalization, Severe depression anxiety, Discharge may exacerbated symptoms, Severe functional impairment Progress Toward Problem(s) and Goals/Treatment Plan: group, milieu and supportive tx (as tolerated) Seroquel and abilify po d/c ambien as needed for insomnia prolixin d/c clozaril 12.5mg po today with the plan to increase accordingly Prozac 40 mg daily for depression and anxiety Ativan 1mg po bid and hs for akathesia, anxiety and mood control Abilify Maintenna was provided to patient on 09/08/18 geodon and ativan for agitation SW consultation for discharge plan and social issues Family involvement, pt wanted her to participate in her care family meeting took place today 09/19/18, discussed clozaril, risk/benefits and alternatives discussed Follow up on labs Will monitor closely Pt was educated about risk/benefits and alternatives of medications, coping strategies (safety plan, suicide prevention), relapse prevention, importance of follow up with psychiatrist and therapist, stay away from drugs/alcohol/smoking Estimated Date of D/C: 09/26/18
--- NOTE | 2018-09-19 13:26 | CP.PCM.PN ---
Subjective - Date & Time of Evaluation Date of Evaluation: 09/19/18 Time of Evaluation: 13:26 - Subjective Subjective: Nephrology Consultation Note: Assessment: Stable Acute Kidney Injury (N17.9) likely due to pre-renal state hx of HTN Ca breast s/p radiation and Rt arm lymphedema dysphagia psyhosis hyperlipidemia UTI Plan No acute need for renal replacement therapy at this time. . Hypertension control with meds as ordered. Maintain hemodynamics stable. Avoid hypotension. no ACEI/ARB due to TERESA. hold hctz due to pre renal state. hold aldactone as BP mostly on low side Monitor Input/Output, daily weights and renal function with basic metabolic panel pt to be encouraged to drink more water started vantin for UTI x 3 days course Dose meds/antibiotics for improved GFR. Glycemic control Further work up/management as per primary team Thanks for allowing me to participate in care of your patient. Please call if any Qs. had d/w team Dr Johnson Gibbs Office: [phone] Chief Complaint; unable to obtain Reason for consult: Acute Kidney Injury HPI: Pt is a 48 F with hx of hypertension, Ca breast s/p radiation and Rt arm lymphedema presented with complaints of difficulty swallowing, seen by GI and heme/onc, transferred to [facility] for psychosis and noted to have higher Cr 1.6 Denies OTC/herbal meds or NSAIDs No recent iodinated contrast exposure. No obvious episodes of low BP. renal consult for TERESA ROS: pt unable to provide much hx. denies CP/SOB Physical Examination: General Appearance: Comfortable, in no acute respiratory distress, co-operative . Vitals reviewed and noted as below Head; Atraumatic, normocephalic ENT: no ulcers no thrush. Tongue is midline. Oropharynx: no rash or ulcers. EYES: Pupils are equal, round and reactive to light accommodation. Eye muscles and extraocular movement intact. Sclera is anicteric. Neck; supple no lymphadenopathy, no thyromegaly or bruit Lungs: Normal respiratory rate/effort. Breath sounds bilateral equal and clear Heart: Normal rate. s1s2 normal. No rub or gallop. Extremities: no edema. No varicose veins. Rt arm lymphedema Neurological: Patient is awake follow commands Skin: Warm and dry. Normal turgor. No rash. Palpitation: Normal elasticity for age Abdomen: Abdomen is soft. Bowel sounds +. There is no abdominal tenderness, no guarding/rigidity no organomegaly Psych: lack insight. flat affect. MSK: no joint tenderness or swelling. Digits and nails normal, no deformity : kidney or bladder not palpable Labs/imaging reviewed. Past medical history, past surgical history, family history, social history, allergy reviewed and noted as below Family hx: no hx of CKD. Rest non-contributory Objective - Vital Signs/Intake and Output Vital Signs (last 24 hours): Temp Pulse Resp BP Pulse Ox 97.3 F L 91 H 20 115/75 09/19/18 07:28 09/19/18 07:28 09/19/18 07:28 09/19/18 07:28 - Medications Medications: Current Medications Bacitracin (Bacitracin) 1 gm TOP BID [facility] Last Admin: 09/19/18 09:52 Dose: 1 oin Clozapine (Clozaril) 12.5 mg PO DAILY [facility]; Protocol Enoxaparin Sodium (Lovenox) 40 mg SC DAILY [facility]; Protocol Last Admin: 09/19/18 09:53 Dose: 40 mg Fluoxetine HCl (Prozac) 30 mg PO DAILY [facility] Last Admin: 09/19/18 09:51 Dose: 30 mg Folic Acid (Folic Acid) 1 mg PO DAILY [facility] Last Admin: 09/19/18 09:51 Dose: 1 mg Gabapentin (Neurontin) 300 mg PO DAILY [facility]; Protocol Last Admin: 09/19/18 09:50 Dose: 300 mg Home Med (Home Med) 0.8 unit SC Q2W [facility] Last Admin: 09/17/18 21:25 Dose: 0.8 unit Levothyroxine Sodium (Synthroid) 150 mcg PO 0600 [facility] Last Admin: 09/19/18 06:00 Dose: 150 mcg Lorazepam (Ativan) 1 mg PO Q6 PRN; Protocol PRN Reason: Agitation Last Admin: 09/18/18 07:54 Dose: 1 mg Lorazepam (Ativan) 1 mg PO BID [facility]; Protocol Last Admin: 09/19/18 09:52 Dose: Not Given Lorazepam (Ativan) 1 mg PO HS [facility]; Protocol Last Admin: 09/18/18 22:50 Dose: Not Given Lorazepam (Ativan) 2 mg PO Q6H PRN; Protocol PRN Reason: anxiety/agitation Lorazepam (Ativan) 2 mg IM Q6 PRN; Protocol PRN Reason: Agitation Last Admin: 09/19/18 08:52 Dose: 2 mg Magnesium Oxide (Mag-Ox) 400 mg PO BID [facility] Last Admin: 09/19/18 09:50 Dose: 400 mg Pantoprazole Sodium (Protonix Ec Tab) 40 mg PO 0600 [facility] Last Admin: 09/19/18 06:00 Dose: 40 mg Propranolol HCl (Inderal) 10 mg PO DAILY [facility] Last Admin: 09/19/18 09:53 Dose: Not Given Saliva Substitute (Saliva Substitute) 0 ml PO TID PRN PRN Reason: Dry mouth Ziprasidone (Geodon Cap) 20 mg PO TID PRN; Protocol PRN Reason: agitation/psychosis Last Admin: 09/18/18 15:15 Dose: 20 mg Ziprasidone (Geodon Inj) 20 mg IM Q6 PRN; Protocol PRN Reason: severe agitation Last Admin: 09/19/18 08:51 Dose: 20 mg Zolpidem Tartrate (Ambien) 5 mg PO HS PRN; Protocol PRN Reason: Insomnia - Labs Labs: 09/19/18 09:55 09/16/18 07:45
[2018-09-20] MEDS: Levothyroxine 150 MCG TAB PO SCH (06:37)
[2018-09-20] MEDS: Pantoprazole 40 mg EC Tab PO SCH (06:37)
[2018-09-20] MEDS: Magnesium Oxide 400 mg Tab UD PO SCH ×2 (10:06→15:58)
[2018-09-20] MEDS: Bacitracin Ointment 30 GM TUBE TOP SCH ×2 (10:16→15:59)
[2018-09-20] MEDS: Enoxaparin 40 mg Syringe SC SCH (10:39)
--- NOTE | 2018-09-20 10:45 | PCM.PYCHPN ---
Psychiatric Progress Note - Psychiatric Progress Note Patient seen today, length of contact: 30 min Problems Identified/Issues Discussed: History of Present Illness and Precipitating Events: Patient is a 48-year-old [place] female with a psychiatric history of Schizoaffective disorder, multiple prior psychiatric admissions both in [place] and the [place]~ most recently hospitalized at [facility] x6 months ago, who was transferred from the medical floor yesterday after being treated from 09/10/18-09/12/18 for dysphagia. Patient was consulted by Dr. Ross on September 10 as well as this provider on September 11 and for symptoms of depression, disorganization, paranoia, quaker preoccupation as well as bizarre behavior. On the medical floor patient required 1:1 because she was caught drinking her urine out of the toilet. Patient was trying to punish herself because she didn't deserve to live. Patient attends outpatient psychiatric treatment of [facility]. Her most recent follow up was on September 08, 2018. Patient has been compliant with Abilify 10 mg daily, Prozac 10 mg daily Seroquel 100 mg BID as well as Abilify Maintenna last injected September 08, 2018. Prozac was increased to 40 mg daily and Seroquel was increased to 100 mg po daily, 50 mg po q3pm and 200 mg HS on the medical floor. As noted above patient has been demonstrating delusions disorganization and bizarre behavior on the medical floor and continues to demonstrate these symptoms on the psychiatric unit--however her impulse control and intensity of psychosis are worse on the psychiatric unit. Patient is depressed, hopeless, helpless and has very low self-worth. She punishes herself both mentally and physically. She prays loudly and incessantly. She still needs to be repeatedly redirected from bowing to staff and kissing their shoes. Hysterically, patient blurts "I dont want to go to the fire! and "I want to go to heaven!" She remains quite unpredictable and impulsive. She can still be heard wailing throughout the hallway of the psychiatric unit. Patient does not appear to be any physical distress and denies having any new discomfort or pain however she does appear to be in significant emotional distress and has poor insight and judgement. PSYCHIATRIC HISTORY Patient is a poor historian cannot provide reliable information regarding her psychiatric history however prior notes indicate that she has been psychiatrically hospitalized both in [place] and in [place]. Her most recent hospitalization was at the [facility] approximately six months ago. She attends outpatient at [facility] in and reportedly compliant with following medications Abilify 10 mg daily, Prozac 10 mg daily Seroquel 100 mg BID as well as Abilify Maintenna (last injected September 08, 2018). Prozac was increased to 40 mg daily and Seroquel was increased to 100 mg po daily, 50 mg po q3pm and 200 mg HS on the medical floor. Patient has a tendency to become very religiously preoccupied, disorganized and bizarre during her decompensations. She has a history of eating her feces and drinking her urine as a form of self punishment during these episodes SOCIAL HISTORY Patient was born in [place]. Shes been for about 22 years. She has two adult daughters (though told staff one of her daughters is 12 yo) who live with her and her . Patient denies any drug or alcohol issues in her life. PROGRESS NOTE I reviewed recent notes and met with patient at bedside this morning. Patient continues to be delusional, bizarre and disorganized without much improvement over the week. She remains impulsive and needs a lot of staff support to redirect her psychotic behaviors. For example she remains delusional, religiously preoccupied and still tries to eat her own excrement. It is difficult to maintain a meaningful interview with her, her behaviors persist despite much education and reassurance. Patient remains quite unpredictable and I agree with Dr. Ross, ECT treatment is an excellent intervention to try at this time based on prior success with this modality in her past. Patient does not appear to be any acute physical distress and denies having any new discomfort or pain however she does appear to be in significant emotional distress with poor insight and judgement. Of note: patient required IM prn due to restlessness on the unit this morning. Diagnostic Results: Schizoaffective Disorder r/o delirium Medication Change: Yes (decreased prolixin, started cogentin) Medical Record Reviewed: Yes Mental Status Examination - Cognitive Function Orientation: Place Memory: Impaired Attention: Poor Concentration: Poor Association: Loose Fund of Knowledge: Poor - Mood Mood: Depressed ("I am not well"), Anxious - Affect Affect: Constricted - Speech Speech: Appropriate - Formal Thought Process Formal Thought Process: Delusions, Paranoia, Loosening of associations - Suicidal Ideation Suicidal Ideation: No - Homicidal Ideation Homicidal Ideation: No Goal/Treatment Plan - Goal/Treatment Plan Need for Continued Stay: Remain at risks for inpatient hospitalization, Severe depression anxiety, Discharge may exacerbated symptoms, Severe functional impairment Progress Toward Problem(s) and Goals/Treatment Plan: * group, milieu and supportive tx (as tolerated) * Prolixin decreased to 10 mg AMHS and cogentin started 1 mg AMHS due to restlessness on the unit * Prozac 30 mg daily for depression and anxiety * Ativan 1 mg po BID AND HS for anxiety and mood control * Abilify Maintenna was provided to patient on 09/08/18 * Geodon and Ativan prns * Considering ECT treatment next week. * Vitals reviewed and noted below: Selected Entries 09/19/18 09/19/18 07:28 16:00 Temperature 97.3 F L Pulse Rate 91 H 60 Respiratory 20 Rate Blood Pressure 115/75 116/88 * Please refer to results from patient's physical exam/ROS/labs in progress notes from her recent admission to the medical floor from 09/10/18-09/12/18, as well as ER ROS and physical exam on 09/09/18 * Prior weekend labs noted below: Laboratory Results - last 24 hr 09/14/18 09/14/18 09/14/18 09:10 09:10 09:10 WBC 4.7 D RBC 4.39 Hgb 12.4 Hct 37.8 MCV 86.1 MCH 28.2 MCHC 32.8 RDW 16.4 H Plt Count 360 MPV 9.4 Gran % 50.8 Lymph % (Auto) 34.7 [place] % (Auto) 13.4 H Eos % (Auto) 0.9 L Baso % (Auto) 0.2 Gran # 2.39 Lymph # (Auto) 1.6 [place] # (Auto) 0.6 Eos # (Auto) 0.0 Baso # (Auto) 0.01 Sodium 140 Potassium 4.0 Chloride 104 Carbon Dioxide 21 Anion Gap 18 BUN 15 Creatinine 1.6 H Est GFR ( Amer) 42 Est GFR (Non-Af Amer) 35 Random Glucose 85 Calcium 10.0 Phosphorus 2.8 Magnesium 1.6 L Total Bilirubin 0.5 AST 89 H D ALT 57 H Alkaline Phosphatase 88 Total Protein 8.0 Albumin 4.4 Globulin 3.6 Albumin/Globulin Ratio 1.2 Triglycerides 102 Cholesterol 234 H LDL Cholesterol Direct 155 H HDL Cholesterol 60 TSH 3rd Generation 5.59 H Estimated Date of D/C: 09/26/18
[2018-09-20] MEDS: Saliva Substitute 44.3 ML PO PRN (15:59)
[2018-09-21] MEDS: Levothyroxine 150 MCG TAB PO SCH (07:09)
[2018-09-21] MEDS: Pantoprazole 40 mg EC Tab PO SCH (07:09)
[2018-09-21] MEDS: Magnesium Oxide 400 mg Tab UD PO SCH ×2 (10:10→20:40)
[2018-09-21] MEDS: Bacitracin Ointment 30 GM TUBE TOP SCH ×2 (10:11→20:45)
[2018-09-21] MEDS: Saliva Substitute 44.3 ML PO PRN (10:12)
[2018-09-21] MEDS: Enoxaparin 40 mg Syringe SC SCH (10:22)
--- NOTE | 2018-09-21 10:43 | PCM.PYCHPN ---
Psychiatric Progress Note - Psychiatric Progress Note Patient seen today, length of contact: 30 min Problems Identified/Issues Discussed: History of Present Illness and Precipitating Events: Patient is a 48-year-old [place] female with a psychiatric history of Schizoaffective disorder, multiple prior psychiatric admissions both in [place] and the [place]~ most recently hospitalized at [facility] x6 months ago, who was transferred from the medical floor yesterday after being treated from 09/10/18-09/12/18 for dysphagia. Patient was consulted by Dr. Ross on September 10 as well as this provider on September 11 and for symptoms of depression, disorganization, paranoia, sabianist preoccupation as well as bizarre behavior. On the medical floor patient required 1:1 because she was caught drinking her urine out of the toilet. Patient was trying to punish herself because she didn't deserve to live. Patient attends outpatient psychiatric treatment of [facility]. Her most recent follow up was on September 08, 2018. Patient has been compliant with Abilify 10 mg daily, Prozac 10 mg daily Seroquel 100 mg BID as well as Abilify Maintenna last injected September 08, 2018. Prozac was increased to 40 mg daily and Seroquel was increased to 100 mg po daily, 50 mg po q3pm and 200 mg HS on the medical floor. As noted above patient has been demonstrating delusions disorganization and bizarre behavior on the medical floor and continues to demonstrate these symptoms on the psychiatric unit--however her impulse control and intensity of psychosis are worse on the psychiatric unit. Patient is depressed, hopeless, helpless and has very low self-worth. She punishes herself both mentally and physically. She prays loudly and incessantly. She still needs to be repeatedly redirected from bowing to staff and kissing their shoes. Hysterically, patient blurts "I dont want to go to the fire! and "I want to go to heaven!" She remains quite unpredictable and impulsive. She can still be heard wailing throughout the hallway of the psychiatric unit. Patient does not appear to be any physical distress and denies having any new discomfort or pain however she does appear to be in significant emotional distress and has poor insight and judgement. PSYCHIATRIC HISTORY Patient is a poor historian cannot provide reliable information regarding her psychiatric history however prior notes indicate that she has been psychiatrically hospitalized both in [place] and in [place]. Her most recent hospitalization was at the [facility] approximately six months ago. She attends outpatient at [facility] in and reportedly compliant with following medications Abilify 10 mg daily, Prozac 10 mg daily Seroquel 100 mg BID as well as Abilify Maintenna (last injected September 08, 2018). Prozac was increased to 40 mg daily and Seroquel was increased to 100 mg po daily, 50 mg po q3pm and 200 mg HS on the medical floor. Patient has a tendency to become very religiously preoccupied, disorganized and bizarre during her decompensations. She has a history of eating her feces and drinking her urine as a form of self punishment during these episodes SOCIAL HISTORY Patient was born in [place]. Shes been for about 22 years. She has two adult daughters (though told staff one of her daughters is 12 yo) who live with her and her . Patient denies any drug or alcohol issues in her life. PROGRESS NOTE 09/21/18 I reviewed recent notes. Patient continues to be delusional, bizarre and disorganized without much improvement over the week or this past weekend. She remains impulsive and needs a lot of staff support to redirect her psychotic behaviors. For example she is religiously preoccupied with such intense self-loathing that she tried to eat her excrement again over the week. On Saturday patient needed to be medicated with Geodon 20 mg IM and Ativan 2 mg IM because she became agitated and combative when staff tried to direct her to her room. Patient has been restless and lost her balance a few times on the unit on Saturday so this provider reduced her prolixin dose back to twice daily and added cogentin. She is currently on 1:1 again. It is difficult for staff or this provider to maintain a meaningful interview with her, her histrionic behaviors persist despite much education and reassurance. Patient remains quite unpredictable and I agree with Dr. Ross, ECT treatment is an excellent intervention to try at this time based on prior success with this modality in her past. Diagnostic Results: Schizoaffective Disorder r/o delirium Medication Change: Yes (decreased prolixin, started cogentin) Medical Record Reviewed: Yes Mental Status Examination - Cognitive Function Orientation: Place Memory: Impaired Attention: Poor Concentration: Poor Association: Loose Fund of Knowledge: Poor - Mood Mood: Depressed ("I am not well"), Anxious - Affect Affect: Constricted - Speech Speech: Appropriate - Formal Thought Process Formal Thought Process: Delusions, Paranoia, Loosening of associations - Suicidal Ideation Suicidal Ideation: No - Homicidal Ideation Homicidal Ideation: No Goal/Treatment Plan - Goal/Treatment Plan Need for Continued Stay: Remain at risks for inpatient hospitalization, Severe depression anxiety, Discharge may exacerbated symptoms, Severe functional impairment Progress Toward Problem(s) and Goals/Treatment Plan: * group, milieu and supportive tx (as tolerated) * Prolixin decreased to 10 mg AMHS and cogentin started 1 mg AMHS on 09/20/18 due to restlessness on the unit * Prozac 30 mg daily for depression and anxiety * Ativan 1 mg po BID AND HS for anxiety and mood control * Abilify Maintenna was provided to patient on 09/08/18 * Geodon and Ativan prns * Patient on 1:1 again * Considering ECT treatment next week. * Vitals reviewed and noted below: Selected Entries 09/20/18 09/20/18 09/20/18 06:48 10:04 15:45 Temperature 98.1 F Pulse Rate 79 93 H 100 H Respiratory 16 Rate Blood Pressure 98/60 L 146/96 H 95/70 L * Please refer to results from patient's physical exam/ROS/labs in progress notes from her recent admission to the medical floor from 09/10/18-09/12/18, as well as ER ROS and physical exam on 09/09/18 * Prior weekend labs noted below: Laboratory Results - last 24 hr 09/14/18 09/14/18 09/14/18 09:10 09:10 09:10 WBC 4.7 D RBC 4.39 Hgb 12.4 Hct 37.8 MCV 86.1 MCH 28.2 MCHC 32.8 RDW 16.4 H Plt Count 360 MPV 9.4 Gran % 50.8 Lymph % (Auto) 34.7 [place] % (Auto) 13.4 H Eos % (Auto) 0.9 L Baso % (Auto) 0.2 Gran # 2.39 Lymph # (Auto) 1.6 [place] # (Auto) 0.6 Eos # (Auto) 0.0 Baso # (Auto) 0.01 Sodium 140 Potassium 4.0 Chloride 104 Carbon Dioxide 21 Anion Gap 18 BUN 15 Creatinine 1.6 H Est GFR ( Amer) 42 Est GFR (Non-Af Amer) 35 Random Glucose 85 Calcium 10.0 Phosphorus 2.8 Magnesium 1.6 L Total Bilirubin 0.5 AST 89 H D ALT 57 H Alkaline Phosphatase 88 Total Protein 8.0 Albumin 4.4 Globulin 3.6 Albumin/Globulin Ratio 1.2 Triglycerides 102 Cholesterol 234 H LDL Cholesterol Direct 155 H HDL Cholesterol 60 TSH 3rd Generation 5.59 H Estimated Date of D/C: 09/26/18
--- NOTE | 2018-09-22 01:21 | PN ---
DATE: 09/19/2018 SUBJECTIVE: The patient is physically stable. She has no physical complaints. She is kind of very anxious moving from one side to the other and she still has some abnormal thinking that she is going to go to hell and she is repeating the same thoughts; however, there is no new complaint. PHYSICAL EXAMINATION VITAL SIGNS: Temperature 97.3, heart rate 91, blood pressure 115/75, respirations 20, saturation 90%. HEAD AND NECK: Normal. No JVD, no thyromegaly. CHEST: Clear bilaterally. CARDIOPULMONARY: First sound and second sound normal. ABDOMEN: Soft, obese, nontender. EXTREMITIES: No edema except for right upper extremity lymphedema. NEUROLOGIC: Normal. LABORATORY DATA: White count 4.5, hemoglobin 12.2, hematocrit 38.2, platelets 318. Chemistry shows sodium 140, potassium 4.4, chloride 103, bicarb 29, BUN 17, creatinine 1.1. The patient's AST 58. ASSESSMENT AND PLAN: 1. The patient has history of schizophrenia, depression with resistant to treatment. In spite of medical treatment, the patient still has the same psychotic unrealistic thoughts. She is getting Prolixin which is fluphenazine 10 mg twice a day and 10 mg in the morning. She is also getting Geodon and still having bad thinking. We will continue follow up with the psychiatrist. 2. History of urinary tract infections, doing well. 3. Hypothyroidism. Continue levothyroxine. 4. Anxiety and agitations on and off. She is getting Ativan. She sometimes she gets Haldol, and continue current therapy. 5. History of right breast carcinoma, status post mastectomy, radiations; with history of dysphagia, seems stable. She had a recent CT abdomen and pelvis which was negative. We will continue current therapy. We will follow up with the benefits sales consultant. Igor Ca MD
--- NOTE | 2018-09-22 01:38 | PN ---
DATE: 09/20/2018 SUBJECTIVE: The patient is sitting in the TV room, drawing some pictures, writing some notes, and she mentions, "If I don't finish these, I am gonna go to hell." The patient still has some psychotic symptoms. She is anxious. Sometimes she cries. Her psych illness is very resistant to treatment. PHYSICAL EXAMINATION VITAL SIGNS: Her temperature is 98.1, heart rate 79, blood pressure 98/60, respirations 16. HEAD AND NECK: Normal. No JVD, no thyromegaly. CHEST: Clear bilaterally. CARDIAC: First sound and second sound are normal. ABDOMEN: Soft, obese, nontender. EXTREMITIES: No edema except right arm lymphedema. NEUROLOGIC: Normal. LABORATORY STUDY: No change, the same lab on 09/19/2018 and chem-7 or basic metabolic panel is normal. IMPRESSION AND PLAN: 1. The patient has psychosis with persistence of psychotic features, psychotic symptoms in spite of medications. Psychiatry needs to do an electroconvulsive therapy. We will get an EKG in the morning. We will get some blood work in the morning. From the history, the patient has no history of cardiac disease and no history of any neurological disease. No history of seizures, no history of cardiac disease, coronary artery disease or congestive heart failure. She is medically stable for that. We will get an EKG in the morning and we will proceed if it is normal. 2. History of urinary tract infection. Basic metabolic panel shows normal creatinine. 3. Hypothyroidism. 4. Dysphagia. may need dilations, may need pureed diet. Continue current diet as per Gastrointestinal recommendations. Continue current treatment. Continue gastrointestinal and deep venous thrombosis prophylaxis. I will follow up with the consultants. 5, Continue Ativan as needed for agitation. Currently, on Geodon injections intramuscularly every six hours as needed and 20 mg by mouth three times a day as needed in addition to Prolixin or fluphenazine 10 mg two times a day and in the morning. The patient is also getting Prozac 30 mg, Synthroid 150 mcg, otherwise a substitute she is getting Cogentin 1 mg by mouth two times a day and Inderal 10 mg by mouth daily. Continue current therapy. Igor Ca MD [facility] # [id number]
[2018-09-22] MEDS: Pantoprazole 40 mg EC Tab PO SCH (07:14)
[2018-09-22] MEDS: Levothyroxine 150 MCG TAB PO SCH (07:15)
[2018-09-22 08:11] LABS: HEMOGLOBIN 12.2 g/dL (12.0-16.0); MEAN CELL VOLUME 86.2 fl (80.0-105.0); MEAN CORPUSCULAR HEMOGLOBIN 28.1 pg (25.0-35.0); MEAN CORPUSCULAR HGB CONC 32.6 g/dl (31.0-37.0); MEAN PLATELET VOLUME 9.7 fl (7.0-11.0); RBC 4.34 10^6/uL (3.5-6.1); RED CELL DISTRIBUTION WIDTH 16.5 % (11.5-14.5); WHITE BLOOD COUNT 3.4 10^3/uL (4.5-11.0)
[2018-09-22 08:22] LABS: CALCIUM 10.2 mg/dL (8.4-10.5)
[2018-09-22] MEDS: Enoxaparin 40 mg Syringe SC SCH (12:27)
[2018-09-22] MEDS: Magnesium Oxide 400 mg Tab UD PO SCH ×2 (12:27→16:43)
[2018-09-22] MEDS: Bacitracin Ointment 30 GM TUBE TOP SCH ×2 (12:28→16:33)
--- NOTE | 2018-09-22 14:25 | PCM.PYCHPN ---
Psychiatric Progress Note - Psychiatric Progress Note Patient seen today, length of contact: 30 min Patient Chief Complaint: "I don't trust nobody" Problems Identified/Issues Discussed: Suicide/ homicide prevention, past psychiatric h/o, current psychiatric symptoms, medical problems, risk/benefits and alternatives of medications, medications compliance, coping strategies, substance abuse h/o, relapse prevention, importance of follow up with psychiatrist and therapist, discharge plan. Medical Problems: pt was dehydrated dysphagia is better new UTI, on antibiotics Diagnostic Results: 09/14/18 09:10 09/15/18 08:00 Lab Results 09/15/18 08:00: Sodium 140, Potassium 4.0, Chloride 102, Carbon Dioxide 28, Anio n Gap 14, BUN 15, Creatinine 1.2, Est GFR ( Amer) 58, Est GFR (Non-Af Amer) 48, Random Glucose 97, Calcium 9.8 09/14/18 17:40: Urine Color Yellow, Urine Appearance Sl cloudy, Urine pH 6.0, Ur Specific [place] 1.010, Urine Protein Negative, Urine Glucose (UA) Negative, Urine Ketones Negative, Urine Blood Small H, Urine Nitrate Positive H, Urine Bilirubin Negative, Urine Urobilinogen 0.2, Ur Leukocyte Esterase Small H, Urine RBC 5 - 10, Urine WBC 20 - 25, Ur Epithelial Cells 10 - 12, Urine Bacteria Many 09/14/18 09:10: RPR Nonreactive 09/14/18 09:10: TSH 3rd Generation 5.59 H 09/14/18 09:10: Sodium 140, Potassium 4.0, Chloride 104, Carbon Dioxide 21, Anion Gap 18, BUN 15, Creatinine 1.6 H, Est GFR ( Amer) 42, Est GFR (Non- Af Amer) 35, Random Glucose 85, Calcium 10.0, Phosphorus 2.8, Magnesium 1.6 L, Total Bilirubin 0.5, AST 89 H D, ALT 57 H, Alkaline Phosphatase 88, Total Protein 8.0, Albumin 4.4, Globulin 3.6, Albumin/Globulin Ratio 1.2, Triglycerides 102, Cholesterol 234 H, LDL Cholesterol Direct 155 H, HDL Cholesterol 60 09/14/18 09:10: WBC 4.7 D, RBC 4.39, Hgb 12.4, Hct 37.8, MCV 86.1, MCH 28.2, MCHC 32.8, RDW 16.4 H, Plt Count 360, MPV 9.4, Gran % 50.8, Lymph % (Auto) 34.7, [place] % (Auto) 13.4 H, Eos % (Auto) 0.9 L, Baso % (Auto) 0.2, Gran # 2.39, Lymph # (Auto) 1.6, [place] # (Auto) 0.6, Eos # (Auto) 0.0, Baso # (Auto) 0.01 Microbiology 09/14/18 17:40 Urine Urine Culture - Preliminary Gram Negative [facility] Results - last 24 hr 09/19/18 09:55 WBC 4.5 RBC 4.35 Hgb 12.2 Hct 38.3 MCV 88.0 MCH 28.0 MCHC 31.9 RDW 16.6 H Plt Count 318 MPV 9.6 Gran % 54.3 Lymph % (Auto) 30.0 [place] % (Auto) 14.8 H Eos % (Auto) 0.7 L Baso % (Auto) 0.2 Gran # 2.43 Lymph # (Auto) 1.3 [place] # (Auto) 0.7 H Eos # (Auto) 0.0 Baso # (Auto) 0.01 Abnormal Lab Results 09/22/18 09/22/18 07:30 07:30 WBC 3.4 L D RBC 4.34 Hgb 12.2 Hct 37.4 MCV 86.2 MCH 28.1 MCHC 32.6 RDW 16.5 H Plt Count 373 MPV 9.7 Sodium 141 Potassium 5.0 Chloride 107 Carbon Dioxide 25 Anion Gap 14 BUN 18 Creatinine 1.5 H Est GFR ( Amer) 45 Est GFR (Non-Af Amer) 37 Random Glucose 98 Calcium 10.2 DSM 5 Symptoms Update: Patient is a 48-year-old [place]ian female with a psychiatric history of Schizoaffective disorder, multiple prior psychiatric admissions both in [place] and the [place]~ most recently hospitalized at [facility] x6 months ago, who was transferred from the medical floor after being treated from 09/10/18-09/12/18 for dysphagia, transfer was uneventful. pt was seen today in the quiet room due to pt's agitation, pt was screaming, religiously preoccupied, was calling for her father, pt was in danger to self, was given Haldol 5mg+Ativan 2mg +Benadryl 50mg IM. pt calmed down, but did not sleep. pt was reevaluated with who helped this fiction writer with translation, pt is delusional and paranoid, said that everybody , was crying hysterically. this fiction writer tried to educate pt about ECT procedure, but pt was not able to comprehend due to acute psychosis, consequently at this time pt lacks capacity to make decision for ECT as well was not able to point nobody to be her POA due to paranoia "I don't trust nobody". pt was restless on prolixin which was decreased, pt was on Seroquel 350 mg at the time of admission, will resume 300 mg daily, we will increase Ativan to 2 mg 3 times a day for anxiety and restlessness. as per nursing staff report, patient is psychotic, needs constant redirection, thought process is disorganized, pt is paranoid, try to eat her own excrements. . pt still has poor insight and judgment, over the weekend pt was agitated, religiously preoccupied. pt tolerates meds well, AIMS 0, no EPS. Diagnostic Results: Schizoaffective Disorder r/o delirium Medication Change: Yes (d/c prolixin, increase ativan and resume seroquel) Medical Record Reviewed: Yes Consults ordered or reviewed: patient was seen by medical team as well as nephrology team Mental Status Examination - Cognitive Function Orientation: Place Memory: Impaired Attention: Poor Concentration: Poor Association: Loose Fund of Knowledge: Poor - Mood Mood: Depressed ("I do not want to go to hell"), Anxious - Affect Affect: Constricted (labile, agitated) - Speech Speech: Appropriate - Formal Thought Process Formal Thought Process: Delusions, Paranoia, Loosening of associations - Suicidal Ideation Suicidal Ideation: No - Homicidal Ideation Homicidal Ideation: No Goal/Treatment Plan - Goal/Treatment Plan Need for Continued Stay: Remain at risks for inpatient hospitalization, Severe depression anxiety, Discharge may exacerbated symptoms, Severe functional impairment Progress Toward Problem(s) and Goals/Treatment Plan: group, milieu and supportive tx (as tolerated) Seroquel 300 mg daily for psychosis with a plan to increase slowly ambien as needed for insomnia prolixin d/c Prozac 40 mg daily for depression and anxiety Ativan 2mg po bid and hs for akathesia, anxiety and mood control Abilify Maintenna was provided to patient on 09/08/18 Haldol Benadryl and Ativan as needed for agitation ECT might be helpful, at the same time patient lacks capacity to make decision about this procedure and now,, patient does not have power of waxer SW consultation for discharge plan and social issues Family involvement, pt wanted her to participate in her care family meeting took place today 09/19/18, discussed clozaril, risk/benefits and alternatives discussed Follow up on labs Will monitor closely Pt was educated about risk/benefits and alternatives of medications, coping strategies (safety plan, suicide prevention), relapse prevention, importance of follow up with psychiatrist and therapist, stay away from drugs/alcohol/smoking Estimated Date of D/C: 09/26/18
--- NOTE | 2018-09-22 15:56 | CP.PCM.PN ---
Subjective - Date & Time of Evaluation Date of Evaluation: 09/22/18 Time of Evaluation: 15:55 - Subjective Subjective: Nephrology Consultation Note: Assessment: Stable Acute Kidney Injury (N17.9) likely due to pre-renal state hx of HTN Ca breast s/p radiation and Rt arm lymphedema dysphagia psyhosis hyperlipidemia UTI Plan No acute need for renal replacement therapy at this time. . Hypertension control with meds as ordered. Maintain hemodynamics stable. Avoid hypotension. no ACEI/ARB due to TERESA. hold hctz due to pre renal state. hold aldactone as BP mostly on low side Monitor Input/Output, daily weights and renal function with basic metabolic panel pt to be encouraged to drink more water. d/w staff started vantin for UTI x 3 days course Dose meds/antibiotics for improved GFR. Glycemic control Further work up/management as per primary team Thanks for allowing me to participate in care of your patient. Please call if any Qs. had d/w team Dr Johnson Gibbs Office: [phone] Chief Complaint; unable to obtain Reason for consult: Acute Kidney Injury HPI: Pt is a 48 F with hx of hypertension, Ca breast s/p radiation and Rt arm lymphedema presented with complaints of difficulty swallowing, seen by GI and heme/onc, transferred to [facility] for psychosis and noted to have higher Cr 1.6 Denies OTC/herbal meds or NSAIDs No recent iodinated contrast exposure. No obvious episodes of low BP. renal consult for TERESA ROS: pt unable to provide any hx. mumbling incomprehensibly Physical Examination: General Appearance: in no acute respiratory distress Vitals reviewed and noted as below Head; Atraumatic, normocephalic ENT: no ulcers no thrush. Tongue is midline. Oropharynx: no rash or ulcers. EYES: Pupils are equal, round and reactive to light accommodation. Eye muscles and extraocular movement intact. Sclera is anicteric. Neck; supple no lymphadenopathy, no thyromegaly or bruit Lungs: Normal respiratory rate/effort. Breath sounds bilateral equal and clear Heart: Normal rate. s1s2 normal. No rub or gallop. Extremities: no edema. No varicose veins. Rt arm lymphedema Neurological: Patient is awake Skin: Warm and dry. Normal turgor. No rash. Palpitation: Normal elasticity for age Abdomen: Abdomen is soft. Bowel sounds +. There is no abdominal tenderness, no guarding/rigidity no organomegaly Psych: lack insight. flat affect. mumbling incomprehensibly MSK: no joint tenderness or swelling. Digits and nails normal, no deformity : kidney or bladder not palpable Labs/imaging reviewed. Past medical history, past surgical history, family history, social history, allergy reviewed and noted as below Family hx: no hx of CKD. Rest non-contributory Objective - Vital Signs/Intake and Output Vital Signs (last 24 hours): Temp Pulse Resp BP Pulse Ox 98.4 F 97 H 20 110/72 99 09/21/18 10:15 09/22/18 12:26 09/21/18 10:15 09/22/18 12:26 09/21/18 10:15 - Medications Medications: Current Medications Bacitracin (Bacitracin) 1 gm TOP BID [facility] Last Admin: 09/22/18 12:28 Dose: Not Given Benztropine Mesylate (Cogentin) 1 mg PO AMHS [facility] Last Admin: 09/22/18 12:28 Dose: 1 mg Diphenhydramine HCl (Benadryl) 50 mg IM Q6H PRN PRN Reason: Anxiety Fluoxetine HCl (Prozac) 30 mg PO DAILY [facility] Last Admin: 09/22/18 12:24 Dose: 30 mg Folic Acid (Folic Acid) 1 mg PO DAILY [facility] Last Admin: 09/22/18 12:27 Dose: 1 mg Gabapentin (Neurontin) 300 mg PO DAILY [facility]; Protocol Last Admin: 09/22/18 12:26 Dose: 300 mg Haloperidol (Haldol) 5 mg PO Q6H PRN; Protocol PRN Reason: agitation/psychosis Haloperidol Lactate (Haldol) 5 mg IM Q6H PRN; Protocol PRN Reason: Agitation Home Med (Home Med) 0.8 unit SC Q2W [facility] Last Admin: 09/17/18 21:25 Dose: 0.8 unit Levothyroxine Sodium (Synthroid) 150 mcg PO 0600 [facility] Last Admin: 09/22/18 07:15 Dose: Not Given Lorazepam (Ativan) 1 mg PO Q6 PRN; Protocol PRN Reason: Agitation Last Admin: 09/18/18 07:54 Dose: 1 mg Lorazepam (Ativan) 2 mg PO Q6H PRN; Protocol PRN Reason: anxiety/agitation Lorazepam (Ativan) 2 mg IM Q6 PRN; Protocol PRN Reason: Agitation Last Admin: 09/22/18 09:51 Dose: 2 mg Lorazepam (Ativan) 2 mg PO HS DAT; Protocol Lorazepam (Ativan) 2 mg PO BID DAT; Protocol Magnesium Oxide (Mag-Ox) 400 mg PO BID DAT Last Admin: 09/22/18 12:27 Dose: 400 mg Pantoprazole Sodium (Protonix Ec Tab) 40 mg PO 0600 [facility] Last Admin: 09/22/18 07:14 Dose: Not Given Propranolol HCl (Inderal) 10 mg PO DAILY [facility] Last Admin: 09/22/18 12:26 Dose: 10 mg Quetiapine Fumarate (Seroquel) 100 mg PO BID DAT; Protocol Quetiapine Fumarate (Seroquel) 100 mg PO HS DAT; Protocol Saliva Substitute (Saliva Substitute) 0 ml PO TID PRN PRN Reason: Dry mouth Last Admin: 09/21/18 10:12 Dose: 1 ml Zolpidem Tartrate (Ambien) 5 mg PO HS PRN; Protocol PRN Reason: Insomnia Last Admin: 09/19/18 21:00 Dose: 5 mg - Labs Labs: 09/22/18 07:30 09/22/18 07:30
[2018-09-23] MEDS: Pantoprazole 40 mg EC Tab PO SCH (05:20)
[2018-09-23] MEDS: Levothyroxine 150 MCG TAB PO SCH (05:20)
[2018-09-23] MEDS: Magnesium Oxide 400 mg Tab UD PO SCH ×3 (09:48→17:32)
[2018-09-23] MEDS: Bacitracin Ointment 30 GM TUBE TOP SCH ×2 (09:49→17:43)
[2018-09-23] MEDS: DiphenhydrAMINE 50 mg/ml Inj IM PRN (10:28)
--- NOTE | 2018-09-23 10:58 | PCM.PYCHPN ---
Psychiatric Progress Note - Psychiatric Progress Note Patient seen today, length of contact: 30 min Patient Chief Complaint: "I don't trust nobody, aaaaaaa" Problems Identified/Issues Discussed: Suicide/ homicide prevention, past psychiatric h/o, current psychiatric symptom s, medical problems, risk/benefits and alternatives of medications, medications compliance, coping strategies, substance abuse h/o, relapse prevention, importance of follow up with psychiatrist and therapist, discharge plan. Medical Problems: pt was dehydrated dysphagia is better new UTI, on antibiotics Diagnostic Results: 09/14/18 09:10 09/15/18 08:00 Lab Results 09/15/18 08:00: Sodium 140, Potassium 4.0, Chloride 102, Carbon Dioxide 28, Anion Gap 14, BUN 15, Creatinine 1.2, Est GFR ( Amer) 58, Est GFR (Non-Af Amer) 48, Random Glucose 97, Calcium 9.8 09/14/18 17:40: Urine Color Yellow, Urine Appearance Sl cloudy, Urine pH 6.0, Ur Specific [place] 1.010, Urine Protein Negative, Urine Glucose (UA) Negative, Urine Ketones Negative, Urine Blood Small H, Urine Nitrate Positive H, Urine Bilirubin Negative, Urine Urobilinogen 0.2, Ur Leukocyte Esterase Small H, Urine RBC 5 - 10, Urine WBC 20 - 25, Ur Epithelial Cells 10 - 12, Urine Bacteria Many 09/14/18 09:10: RPR Nonreactive 09/14/18 09:10: TSH 3rd Generation 5.59 H 09/14/18 09:10: Sodium 140, Potassium 4.0, Chloride 104, Carbon Dioxide 21, Anion Gap 18, BUN 15, Creatinine 1.6 H, Est GFR ( Amer) 42, Est GFR (Non- Af Amer) 35, Random Glucose 85, Calcium 10.0, Phosphorus 2.8, Magnesium 1.6 L, Total Bilirubin 0.5, AST 89 H D, ALT 57 H, Alkaline Phosphatase 88, Total Protein 8.0, Albumin 4.4, Globulin 3.6, Albumin/Globulin Ratio 1.2, Triglycerides 102, Cholesterol 234 H, LDL Cholesterol Direct 155 H, HDL Cholesterol 60 09/14/18 09:10: WBC 4.7 D, RBC 4.39, Hgb 12.4, Hct 37.8, MCV 86.1, MCH 28.2, MCHC 32.8, RDW 16.4 H, Plt Count 360, MPV 9.4, Gran % 50.8, Lymph % (Auto) 34.7, [place] % (Auto) 13.4 H, Eos % (Auto) 0.9 L, Baso % (Auto) 0.2, Gran # 2.39, Lymph # (Auto) 1.6, [place] # (Auto) 0.6, Eos # (Auto) 0.0, Baso # (Auto) 0.01 Microbiology 09/14/18 17:40 Urine Urine Culture - Preliminary Gram Negative [facility] Laboratory Results - last 24 hr 09/19/18 09:55 WBC 4.5 RBC 4.35 Hgb 12.2 Hct 38.3 MCV 88.0 MCH 28.0 MCHC 31.9 RDW 16.6 H Plt Count 318 MPV 9.6 Gran % 54.3 Lymph % (Auto) 30.0 [place] % (Auto) 14.8 H Eos % (Auto) 0.7 L Baso % (Auto) 0.2 Gran # 2.43 Lymph # (Auto) 1.3 [place] # (Auto) 0.7 H Eos # (Auto) 0.0 Baso # (Auto) 0.01 Abnormal Lab Results 09/22/18 09/22/18 07:30 07:30 WBC 3.4 L D RBC 4.34 Hgb 12.2 Hct 37.4 MCV 86.2 MCH 28.1 MCHC 32.6 RDW 16.5 H Plt Count 373 MPV 9.7 Sodium 141 Potassium 5.0 Chloride 107 Carbon Dioxide 25 Anion Gap 14 BUN 18 Creatinine 1.5 H Est GFR ( Amer) 45 Est GFR (Non-Af Amer) 37 Random Glucose 98 Calcium 10.2 DSM 5 Symptoms Update: Patient is a 48-year-old Spanish female with a psychiatric history of Schizoaffective disorder, multiple prior psychiatric admissions both in [place] and the [place]~ most recently hospitalized at [facility] x6 months ago, who was transferred from the medical floor after being treated from 09/10/18-09/12/18 for dysphagia, transfer was uneventful. pt was seen at the day treatment area. pt was crying nonstop. pt presented to be psychotic, irrational, later on pt was screaming, religiously preoccupied, was calling for her father. this tech writer increase dose of seroquel. pt might benefit significantly from ECT, but pt lacks capacity to make decision about ECT and do not trust her to make decision for her treatment as of now. Plan is to stabilize pt on meds and when pt could able to process info about ECT and agrees to that, will provide ECT treatment. as per nursing staff report, patient is psychotic, needs constant redirection, thought process is disorganized, pt is paranoid, try to eat her own excrements today. pt still has poor insight and judgment, over the weekend pt was agitated, religiously preoccupied. pt tolerates meds well, AIMS 0, no EPS. Diagnostic Results: Schizoaffective Disorder r/o delirium Medication Change: Yes (seroquel increased) Medical Record Reviewed: Yes Consults ordered or reviewed: patient was seen by medical team as well as nephrology team Mental Status Examination - Cognitive Function Orientation: Place Memory: Impaired Attention: Poor Concentration: Poor Association: Loose Fund of Knowledge: Poor - Mood Mood: Depressed ("I do not want to go to hell"), Anxious - Affect Affect: Constricted (labile, agitated) - Speech Speech: Appropriate - Formal Thought Process Formal Thought Process: Delusions, Paranoia, Loosening of associations - Suicidal Ideation Suicidal Ideation: No - Homicidal Ideation Homicidal Ideation: No Goal/Treatment Plan - Goal/Treatment Plan Need for Continued Stay: Remain at risks for inpatient hospitalization, Severe depression anxiety, Discharge may exacerbated symptoms, Severe functional impairment Progress Toward Problem(s) and Goals/Treatment Plan: group, milieu and supportive tx (as tolerated) Seroquel 200mg po amhs for psychosis with a plan to increase slowly ambien as needed for insomnia prolixin d/c Prozac 40 mg daily for depression and anxiety Ativan 2mg po bid and hs for akathesia, anxiety and mood control Abiliclaire Maintenna was provided to patient on 09/08/18 Haldol Benadryl and Ativan as needed for agitation ECT might be helpful, at the same time patient lacks capacity to make decision about this procedure and now,, patient does not have power of consumer attorney SW consultation for discharge plan and social issues Family involvement, pt wanted her to participate in her care family meeting took place today 09/19/18, discussed clozaril, risk/benefits and alternatives discussed Follow up on labs Will monitor closely Pt was educated about risk/benefits and alternatives of medications, coping s trategies (safety plan, suicide prevention), relapse prevention, importance of follow up with psychiatrist and therapist, stay away from drugs/alcohol/smoking Estimated Date of D/C: 10/03/18
--- NOTE | 2018-09-23 12:13 | CP.PCM.PN ---
Subjective - Date & Time of Evaluation Date of Evaluation: 09/23/18 Time of Evaluation: 12:12 - Subjective Subjective: Nephrology Consultation Note: Assessment: Stable Acute Kidney Injury (N17.9) likely due to pre-renal state hx of HTN Ca breast s/p radiation and Rt arm lymphedema dysphagia psyhosis hyperlipidemia UTI Plan No acute need for renal replacement therapy at this time. . Hypertension control with meds as ordered. Maintain hemodynamics stable. Avoid hypotension. no ACEI/ARB due to TERESA. hold hctz due to pre renal state. hold aldactone as BP mostly on low side Monitor Input/Output, daily weights and renal function with basic metabolic panel pt to be encouraged to drink more water. d/w staff got vantin for UTI x 3 days course Dose meds/antibiotics for reduced GFR. Glycemic control Further work up/management as per primary team Thanks for allowing me to participate in care of your patient. Please call if any Qs. had d/w team Dr Johnson Gibbs Office: [phone] Chief Complaint; unable to obtain Reason for consult: Acute Kidney Injury HPI: Pt is a 48 F with hx of hypertension, Ca breast s/p radiation and Rt arm lymphedema presented with complaints of difficulty swallowing, seen by GI and heme/onc, transferred to [facility] for psychosis and noted to have higher Cr 1.6 Denies OTC/herbal meds or NSAIDs No recent iodinated contrast exposure. No obvious episodes of low BP. renal consult for TERESA ROS: pt unable to provide any hx. mumbling incomprehensibly with agitation Physical Examination: General Appearance: in no acute respiratory distress Vitals reviewed and noted as below Head; Atraumatic, normocephalic pt got agitated and uncoperative. further exam deferred Labs/imaging reviewed. Past medical history, past surgical history, family history, social history, allergy reviewed and noted as below Family hx: no hx of CKD. Rest non-contributory Objective - Vital Signs/Intake and Output Vital Signs (last 24 hours): Temp Pulse Resp BP Pulse Ox 97.7 F 77 20 114/69 99 09/23/18 06:49 09/23/18 06:49 09/23/18 06:49 09/23/18 06:49 09/21/18 10:15 - Medications Medications: Current Medications Bacitracin (Bacitracin) 1 gm TOP BID [facility] Last Admin: 09/23/18 09:49 Dose: Not Given Benztropine Mesylate (Cogentin) 1 mg PO AMHS [facility] Last Admin: 09/22/18 23:40 Dose: Not Given Diphenhydramine HCl (Benadryl) 50 mg IM Q6H PRN PRN Reason: Anxiety Last Admin: 09/23/18 10:28 Dose: 50 mg Fluoxetine HCl (Prozac) 30 mg PO DAILY [facility] Last Admin: 09/22/18 12:24 Dose: 30 mg Folic Acid (Folic Acid) 1 mg PO DAILY [facility] Last Admin: 09/22/18 12:27 Dose: 1 mg Gabapentin (Neurontin) 300 mg PO DAILY [facility]; Protocol Last Admin: 09/22/18 12:26 Dose: 300 mg Haloperidol (Haldol) 5 mg PO Q6H PRN; Protocol PRN Reason: agitation/psychosis Last Admin: 09/23/18 06:33 Dose: 5 mg Haloperidol Lactate (Haldol) 5 mg IM Q6H PRN; Protocol PRN Reason: Agitation Last Admin: 09/23/18 10:27 Dose: 5 mg Home Med (Home Med) 0.8 unit SC Q2W [facility] Last Admin: 09/17/18 21:25 Dose: 0.8 unit Levothyroxine Sodium (Synthroid) 150 mcg PO 0600 [facility] Last Admin: 09/23/18 05:20 Dose: 150 mcg Lorazepam (Ativan) 1 mg PO Q6 PRN; Protocol PRN Reason: Agitation Last Admin: 09/18/18 07:54 Dose: 1 mg Lorazepam (Ativan) 2 mg PO Q6H PRN; Protocol PRN Reason: anxiety/agitation Last Admin: 09/23/18 06:33 Dose: 2 mg Lorazepam (Ativan) 2 mg IM Q6 PRN; Protocol PRN Reason: Agitation Last Admin: 09/23/18 10:29 Dose: 2 mg Lorazepam (Ativan) 2 mg PO HS [facility]; Protocol Last Admin: 09/22/18 23:39 Dose: Not Given Lorazepam (Ativan) 2 mg PO BID [facility]; Protocol Last Admin: 09/22/18 16:43 Dose: 2 mg Magnesium Oxide (Mag-Ox) 400 mg PO BID [facility] Last Admin: 09/22/18 16:43 Dose: 400 mg Pantoprazole Sodium (Protonix Ec Tab) 40 mg PO 0600 [facility] Last Admin: 09/23/18 05:20 Dose: 40 mg Propranolol HCl (Inderal) 10 mg PO DAILY [facility] Last Admin: 09/22/18 12:26 Dose: 10 mg Quetiapine Fumarate (Seroquel) 200 mg PO HS DAT; Protocol Quetiapine Fumarate (Seroquel) 200 mg PO DAILY [facility]; Protocol Saliva Substitute (Saliva Substitute) 0 ml PO TID PRN PRN Reason: Dry mouth Last Admin: 09/21/18 10:12 Dose: 1 ml Zolpidem Tartrate (Ambien) 5 mg PO HS PRN; Protocol PRN Reason: Insomnia Last Admin: 09/19/18 21:00 Dose: 5 mg - Labs Labs: 09/22/18 07:30 09/22/18 07:30
[2018-09-24] MEDS: Pantoprazole 40 mg EC Tab PO SCH (06:58)
[2018-09-24] MEDS: Levothyroxine 150 MCG TAB PO SCH (06:59)
[2018-09-24] MEDS: Magnesium Oxide 400 mg Tab UD PO SCH ×2 (08:57→16:30)
[2018-09-24] MEDS: Bacitracin Ointment 30 GM TUBE TOP SCH ×2 (09:17→16:30)
--- NOTE | 2018-09-24 09:47 | PCM.PYCHPN ---
Psychiatric Progress Note - Psychiatric Progress Note Patient seen today, length of contact: 30 min Problems Identified/Issues Discussed: History of Present Illness and Precipitating Events: Patient is a 48-year-old Slovak female with a psychiatric history of Schizoaffective disorder, multiple prior psychiatric admissions both in [place] and the [place]~ most recently hospitalized at [facility] x6 months ago, who was transferred from the medical floor yesterday after being treated from 09/10/18-09/12/18 for dysphagia. Patient was consulted by Dr. Ross on September 10 as well as this provider on September 11 and for symptoms of depression, disorganization, paranoia, faith preoccupation as well as bizarre behavior. On the medical floor patient required 1:1 because she was caught drinking her urine out of the toilet. Patient was trying to punish herself because she didn't deserve to live. Patient attends outpatient psychiatric treatment of [facility]. Her most recent follow up was on September 08, 2018. Patient has been compliant with Abilify 10 mg daily, Prozac 10 mg daily Seroquel 100 mg BID as well as Abilify Maintenna last injected September 08, 2018. Prozac was increased to 40 mg daily and Seroquel was increased to 100 mg po daily, 50 mg po q3pm and 200 mg HS on the medical floor. As noted above patient has been demonstrating delusions disorganization and bizarre behavior on the medical floor and continues to demonstrate these symptoms on the psychiatric unit--however her impulse control and intensity of psychosis are worse on the psychiatric unit. Patient is depressed, hopeless, helpless and has very low self-worth. She punishes herself both mentally and physically. She prays loudly and incessantly. She still needs to be repeatedly redirected from bowing to staff and kissing their shoes. Hysterically, patient blurts "I dont want to go to the fire! and "I want to go to heaven!" She remains quite unpredictable and impulsive. She can still be heard wailing throughout the hallway of the psychiatric unit. Patient does not appear to be any physical distress and denies having any new discomfort or pain however she does appear to be in significant emotional distress and has poor insight and judgement. PSYCHIATRIC HISTORY Patient is a poor historian cannot provide reliable information regarding her psychiatric history however prior notes indicate that she has been psychiatrically hospitalized both in [place] and in [place]. Her most recent hospitalization was at the [facility] approximately six months ago. She attends outpatient at [facility] in and reportedly compliant with following medications Abilify 10 mg daily, Prozac 10 mg daily Seroquel 100 mg BID as well as Abilify Maintenna (last injected September 08, 2018). Prozac was increased to 40 mg daily and Seroquel was increased to 100 mg po daily, 50 mg po q3pm and 200 mg HS on the medical floor. Patient has a tendency to become very religiously preoccupied, disorganized and bizarre during her decompensations. She has a history of eating her feces and drinking her urine as a form of self punishment during these episodes SOCIAL HISTORY Patient was born in [place]. Shes been for about 22 years. She has two adult daughters (though told staff one of her daughters is 12 yo) who live with her and her . Patient denies any drug or alcohol issues in her life. PROGRESS NOTE 09/21/18 I reviewed recent notes, patient is known to this provider from my follow up with her on the medical floor prior to her transfer to the psychiatric unit. Patient continues to be delusional, bizarre and disorganized without much improvement since transfer from medicine. She remains impulsive and requires a lot of staff support to redirect her psychotic behaviors. For example she is religiously preoccupied with such intense self-loathing that she has repeatedly tried to eat her excrement over the past week. Patient cries nonstop and smiles bizarrely during my 1:1 with her. She comprehends Macedonian however her responses contain a mixture of Sinhala and Macedonian. Regardless responses are illogical and it is still difficult for staff or this provider to maintain a meaningful interview with her. Her histrionic behaviors persist despite much education and reassurance. Patient remains quite unpredictable and I agree with Dr. Ross, ECT treatment is an excellent intervention to try at this time based on prior success with this modality in her past. However she continues to lack capacity for this consent, we are awaiting to obtain POA. Insight and judgement continue to be poor. Diagnostic Results: Schizoaffective Disorder r/o delirium Medication Change: Yes (seroquel increased) Medical Record Reviewed: Yes Mental Status Examination - Cognitive Function Orientation: Place Memory: Impaired Attention: Poor Concentration: Poor Association: Loose Fund of Knowledge: Poor - Mood Mood: Depressed ("I do not want to go to hell"), Anxious - Affect Affect: Constricted (labile, agitated, histrionic) - Speech Speech: Appropriate - Formal Thought Process Formal Thought Process: Delusions, Paranoia, Loosening of associations - Suicidal Ideation Suicidal Ideation: No - Homicidal Ideation Homicidal Ideation: No Goal/Treatment Plan - Goal/Treatment Plan Need for Continued Stay: Remain at risks for inpatient hospitalization, Severe depression anxiety, Discharge may exacerbated symptoms, Severe functional impairment Progress Toward Problem(s) and Goals/Treatment Plan: * group, milieu and supportive tx (as tolerated) * Seroquel 200 mg AMHS for psychosis and cogentin 1 mg AMHS for EPS prophylaxis * Neurontin 300 mg po daily * Prozac 30 mg daily for depression and anxiety * Ativan 2 mg po BID for anxiety and mood control * Twila Brownena was provided to patient on 09/08/18 * Ambien 5 mg po HS prn: insomnia * Haldol and Ativan prns for agitation * Considering ECT treatment, to be named POA as patient lacks capacity to make this treatment decision at this time. * Vitals reviewed and noted below: Selected Entries 09/23/18 09/23/18 06:49 16:00 Temperature 97.7 F Pulse Rate 77 86 Respiratory 20 Rate Blood Pressure 114/69 110/67 * Please refer to results from patient's physical exam/ROS/labs in progress notes from her recent admission to the medical floor from 09/10/18-09/12/18, as well as ER ROS and physical exam on 09/09/18 * Prior weekend labs noted below: Laboratory Results - last 24 hr 09/14/18 09/14/18 09/14/18 09:10 09:10 09:10 WBC 4.7 D RBC 4.39 Hgb 12.4 Hct 37.8 MCV 86.1 MCH 28.2 MCHC 32.8 RDW 16.4 H Plt Count 360 MPV 9.4 Gran % 50.8 Lymph % (Auto) 34.7 Garvin % (Auto) 13.4 H Eos % (Auto) 0.9 L Baso % (Auto) 0.2 Gran # 2.39 Lymph # (Auto) 1.6 Garvin # (Auto) 0.6 Eos # (Auto) 0.0 Baso # (Auto) 0.01 Sodium 140 Potassium 4.0 Chloride 104 Carbon Dioxide 21 Anion Gap 18 BUN 15 Creatinine 1.6 H Est GFR ( Amer) 42 Est GFR (Non-Af Amer) 35 Random Glucose 85 Calcium 10.0 Phosphorus 2.8 Magnesium 1.6 L Total Bilirubin 0.5 AST 89 H D ALT 57 H Alkaline Phosphatase 88 Total Protein 8.0 Albumin 4.4 Globulin 3.6 Albumin/Globulin Ratio 1.2 Triglycerides 102 Cholesterol 234 H LDL Cholesterol Direct 155 H HDL Cholesterol 60 TSH 3rd Generation 5.59 H Estimated Date of D/C: 10/03/18
--- NOTE | 2018-09-24 09:50 | CP.PCM.PN ---
Subjective - Date & Time of Evaluation Date of Evaluation: 09/24/18 Time of Evaluation: 09:46 - Subjective Subjective: Nephrology Consultation Note: Assessment: Stable Acute Kidney Injury (N17.9) likely due to pre-renal state hx of HTN Ca breast s/p radiation and Rt arm lymphedema dysphagia psyhosis hyperlipidemia UTI hypotension Plan No acute need for renal replacement therapy at this time. BP remains on low side - its not clear to me if that she needs to be on propranolol (unless its being used for different purpose than htn) -Would recom mend discontinue if it does not need to be given as the BP remains low recc check BMP might benefit from fluid bolus if cr up any further awaiting the result Monitor Input/Output, daily weights and renal function with basic metabolic panel Dose meds/antibiotics for reduced GFR. Further work up/management as per primary team S: seen and examined, appears flat ROS: pt unable to provide any hx. mumbling incomprehensibly with agitation Physical Examination: General Appearance: in no acute respiratory distress Vitals reviewed and noted as below Head; Atraumatic, normocephalic sclera anicteric op: clear necK: supple cv: +S1+s2 no rub lungs cta b/l abd: soft nt nd no organomegaly ext: no edema neuro: follows commands no focal defecit psych: flat skin: no rash Labs/imaging reviewed. Past medical history, past surgical history, family history, social history, allergy reviewed and noted as below Family hx: no hx of CKD. Rest non-contributory Objective - Vital Signs/Intake and Output Vital Signs (last 24 hours): Temp Pulse Resp BP Pulse Ox 97.1 F L 82 16 97/50 L 99 09/24/18 07:20 09/24/18 07:20 09/24/18 07:20 09/24/18 09:17 09/21/18 10:15 - Medications Medications: Current Medications Bacitracin (Bacitracin) 1 gm TOP BID DAT Last Admin: 09/24/18 09:17 Dose: Not Given Benztropine Mesylate (Cogentin) 1 mg PO AMHS DAT Last Admin: 09/23/18 22:24 Dose: 1 mg Diphenhydramine HCl (Benadryl) 50 mg IM Q6H PRN PRN Reason: Anxiety Last Admin: 09/23/18 10:28 Dose: 50 mg Fluoxetine HCl (Prozac) 30 mg PO DAILY [facility] Last Admin: 09/24/18 08:57 Dose: 30 mg Folic Acid (Folic Acid) 1 mg PO DAILY DAT Last Admin: 09/24/18 08:57 Dose: 1 mg Gabapentin (Neurontin) 300 mg PO DAILY DAT; Protocol Last Admin: 09/24/18 08:57 Dose: 300 mg Haloperidol (Haldol) 5 mg PO Q6H PRN; Protocol PRN Reason: agitation/psychosis Last Admin: 09/23/18 17:31 Dose: 5 mg Haloperidol Lactate (Haldol) 5 mg IM Q6H PRN; Protocol PRN Reason: Agitation Last Admin: 09/23/18 10:27 Dose: 5 mg Home Med (Home Med) 0.8 unit SC Q2W DAT Last Admin: 09/17/18 21:25 Dose: 0.8 unit Levothyroxine Sodium (Synthroid) 150 mcg PO 0600 DAT Last Admin: 09/24/18 06:59 Dose: 150 mcg Lorazepam (Ativan) 1 mg PO Q6 PRN; Protocol PRN Reason: Agitation Last Admin: 09/18/18 07:54 Dose: 1 mg Lorazepam (Ativan) 2 mg PO Q6H PRN; Protocol PRN Reason: anxiety/agitation Last Admin: 09/23/18 06:33 Dose: 2 mg Lorazepam (Ativan) 2 mg IM Q6 PRN; Protocol PRN Reason: Agitation Last Admin: 09/23/18 10:29 Dose: 2 mg Lorazepam (Ativan) 2 mg PO HS DAT; Protocol Last Admin: 09/23/18 22:24 Dose: 2 mg Lorazepam (Ativan) 2 mg PO BID DAT; Protocol Last Admin: 09/24/18 08:58 Dose: 2 mg Magnesium Oxide (Mag-Ox) 400 mg PO BID [facility] Last Admin: 09/24/18 08:57 Dose: 400 mg Pantoprazole Sodium (Protonix Ec Tab) 40 mg PO 0600 DAT Last Admin: 09/24/18 06:58 Dose: 40 mg Propranolol HCl (Inderal) 10 mg PO DAILY [facility] Last Admin: 09/24/18 09:17 Dose: Not Given Quetiapine Fumarate (Seroquel) 200 mg PO HS [facility]; Protocol Last Admin: 09/23/18 22:24 Dose: 200 mg Quetiapine Fumarate (Seroquel) 200 mg PO DAILY DAT; Protocol Last Admin: 09/24/18 09:16 Dose: 200 mg Saliva Substitute (Saliva Substitute) 0 ml PO TID PRN PRN Reason: Dry mouth Last Admin: 09/21/18 10:12 Dose: 1 ml Zolpidem Tartrate (Ambien) 5 mg PO HS PRN; Protocol PRN Reason: Insomnia Last Admin: 09/19/18 21:00 Dose: 5 mg - Labs Labs: 09/22/18 07:30 09/22/18 07:30
[2018-09-24 10:12] LABS: BLOOD UREA NITROGEN 14 mg/dL (7-21); CALCIUM 9.3 mg/dL (8.4-10.5); GFR NON-AFRICAN AMERICAN 53
--- NOTE | 2018-09-24 14:03 | PN ---
DATE: 09/23/2018 SUBJECTIVE: The patient is walking around. She does not want to take any meds. She feels like these meds they want to kill her and she used to take them. They tried to speak to her to tell her try to take your meds only. She seems agitated, resistant, fighting. She wants to get out,and the patient was seen by other nurses to calm her down. Otherwise, there was no any respiratory or physical distress as something she did and around her and about her. PHYSICAL EXAMINATION VITAL SIGNS: On 09/23/2018, temperature 97.7, heart rate of 77, blood pressure 114/69, respirations 20. HEAD AND NECK: Normal. No JVD. No thyromegaly. CHEST: Clear bilaterally. CARDIAC: First sound and second sound normal. ABDOMEN: Soft, obese, nontender. EXTREMITIES: No edema. NEUROLOGICAL: Normal. LABORATORY DATA: Same like on 09/22/2018; sodium 141, potassium 5, chloride 107, bicarb 25, BUN 18 and creatinine 1.5. IMPRESSION: 1. Psychosis, schizoaffective disorders. Patient has psychotic symptoms , she is agitated. Continue current medications. She is getting Ativan, Haldol. We will continue to monitor her condition. 2. Patient has history of renal insufficiency. Encourage p.o. drinking fluids. We will repeat the labs. We will see how she does. 3. She also has history of urinary tract infection, resolved. 4. Hypothyroidism. Continue Synthroid. 5. Dysphagia. 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 Currently, she is eating. No problem with drinking. She will continue current management for now. She needs to see GI as outpatient. Continue current therapy. Follow up clinically. Igor Ca MD
--- NOTE | 2018-09-24 14:52 | PN ---
DATE: 09/22/2018 SUBJECTIVE: The patient is still crying. She still feel somebody wants to get rid of her and there is some conspiracy about her, and she keeps crying and saying that her , her daughter, they did not come, they and her parents , they do not come visit her, everybody and there is airplanes in the air, and she has very non-consistent and irrelevant sort of thoughts detached from reality. She has no physical distress. PHYSICAL EXAMINATION: At that time other than above; VITAL SIGNS: Her temperature is 97, heart rate 83, blood pressure 103/57, and respirations 17. HEAD AND NECK: Normal. No JVD. No thyromegaly. CHEST: Clear bilaterally. CARDIAC: First sound and second sound normal. ABDOMEN: Soft, obese and nontender. EXTREMITIES: No edema except right lymphedema. LABORATORY DATA: Her laboratory study shows white count 3.4, hemoglobin 12.2, hematocrit 37.4, and platelets 373. Her chemistry is noted for sodium of 141, potassium 5, chloride 107, bicarb 25, BUN 18, creatinine 1.5 and it has been 1.1 and 1.2. The patient is not drinking enough fluid, encouraged to drink p.o. fluids. IMPRESSION AND PLAN: 1. Schizoaffective disorder. She seems not responding to treatment of antipsychotic drugs including Geodon injections, pills including perphenazine or the antipsychotics. She also was even getting Haldol, Ativan, and also Prozac 30 mg daily. Continue current therapy. Electroconvulsive therapy work was done in the past, so we may need to recommend it again. The patient has no history of cardiac disease. 2. Renal insufficiency due to dehydration, encourage p.o. fluids. We will repeat her labs in a day or two. 3. Urinary tract infections. She is done with sabrina Rivas. 4. The patient has hypothyroidism. Continue Synthroid, she was getting 150 mcg a day. Continue current therapy. CURRENT MEDICATION: Ambien 5 mg nightly. Ativan p.r.n. big dose 1 mg or 2 mg every 6 hours as needed also 2 mg IM q. 6 hours p.r.n. and also she gets 2 mg at night and 1 mg twice a day scheduled during the day. She is also getting Cogentin 1 mg twice a day. She is getting folic acid. She is getting Haldol 5 mg every 6 hour if needed and p.o. and IM if needed. She is getting also Inderal 10 mg p.o. daily. Continue Neurontin p.o. daily, Protonix 40 mg daily, Prozac 30 mg daily. Now, we will continue to follow up with the Psychiatry recommendations. Igor Ca MD
[2018-09-25] MEDS: Pantoprazole 40 mg EC Tab PO SCH (06:07)
[2018-09-25] MEDS: Levothyroxine 150 MCG TAB PO SCH (06:07)
[2018-09-25] MEDS: Magnesium Oxide 400 mg Tab UD PO SCH ×2 (08:30→16:57)
[2018-09-25] MEDS: Bacitracin Ointment 30 GM TUBE TOP SCH ×2 (08:34→16:59)
--- NOTE | 2018-09-25 08:49 | PCM.PYCHPN ---
Psychiatric Progress Note - Psychiatric Progress Note Patient seen today, length of contact: 30 min Problems Identified/Issues Discussed: History of Present Illness and Precipitating Events: Patient is a 48-year-old Russian female with a psychiatric history of Schizoaffective disorder, multiple prior psychiatric admissions both in [place] and the [place]~ most recently hospitalized at [facility] x6 months ago, who was transferred from the medical floor yesterday after being treated from 09/10/18-09/12/18 for dysphagia. Patient was consulted by Dr. Ross on September 10 as well as this provider on September 11 and for symptoms of depression, disorganization, paranoia, scientology preoccupation as well as bizarre behavior. On the medical floor patient required 1:1 because she was caught drinking her urine out of the toilet. Patient was trying to punish herself because she didn't deserve to live. Patient attends outpatient psychiatric treatment of [facility]. Her most recent follow up was on September 08, 2018. Patient has been compliant with Abilify 10 mg daily, Prozac 10 mg daily Seroquel 100 mg BID as well as Abilify Maintenna last injected September 08, 2018. Prozac was increased to 40 mg daily and Seroquel was increased to 100 mg po daily, 50 mg po q3pm and 200 mg HS on the medical floor. As noted above patient has been demonstrating delusions disorganization and bizarre behavior on the medical floor and continues to demonstrate these symptoms on the psychiatric unit--however her impulse control and intensity of psychosis are worse on the psychiatric unit. Patient is depressed, hopeless, helpless and has very low self-worth. She punishes herself both mentally and physically. She prays loudly and incessantly. She still needs to be repeatedly redirected from bowing to staff and kissing their shoes. Hysterically, patient blurts "I dont want to go to the fire! and "I want to go to heaven!" She remains quite unpredictable and impulsive. She can still be heard wailing throughout the hallway of the psychiatric unit. Patient does not appear to be any physical distress and denies having any new discomfort or pain however she does appear to be in significant emotional distress and has poor insight and judgement. PSYCHIATRIC HISTORY Patient is a poor historian cannot provide reliable information regarding her psychiatric history however prior notes indicate that she has been psychiatrically hospitalized both in [place] and in [place]. Her most recent hospitalization was at the [facility] approximately six months ago. She attends outpatient at [facility] in and reportedly compliant with following medications Abilify 10 mg daily, Prozac 10 mg daily Seroquel 100 mg BID as well as Abilify Maintenna (last injected September 08, 2018). Prozac was increased to 40 mg daily and Seroquel was increased to 100 mg po daily, 50 mg po q3pm and 200 mg HS on the medical floor. Patient has a tendency to become very religiously preoccupied, disorganized and bizarre during her decompensations. She has a history of eating her feces and drinking her urine as a form of self punishment during these episodes SOCIAL HISTORY Patient was born in [place]. Shes been for about 22 years. She has two adult daughters (though told staff one of her daughters is 12 yo) who live with her and her . Patient denies any drug or alcohol issues in her life. PROGRESS NOTE 09/25/18 I reviewed recent notes, patient is known to this provider from my follow up with her on the medical floor prior to her transfer to the psychiatric unit. Patient continues to be delusional, bizarre and disorganized without much improvement since transfer from medicine. She remains impulsive and requires a lot of staff support to redirect her psychotic behaviors. For example she is religiously preoccupied with such intense self-loathing that she has repeatedly tried to eat her excrement over the past week. Patient cries nonstop and smiles bizarrely during my 1:1 with her. She comprehends Chilean however her responses contain a mixture of Belarusian and Chilean. Sometimes she wails incoherently. Regardless responses remain illogical and it is still difficult for staff or this provider to maintain a meaningful interview with her. Her histrionic behaviors persist despite much education and reassurance. Patient remains quite unpredictable and I agree with Dr. Ross, ECT treatment is an excellent intervention to try at this time based on prior success with this modality in her past. However she continues to lack capacity for this consent, we are awaiting to obtain POA. Insight and judgement continue to be poor. Diagnostic Results: Schizoaffective Disorder r/o delirium Medication Change: Yes (seroquel increased) Medical Record Reviewed: Yes Mental Status Examination - Cognitive Function Orientation: Place Memory: Impaired Attention: Poor Concentration: Poor Association: Loose Fund of Knowledge: Poor - Mood Mood: Depressed ("I do not want to go to hell"), Anxious - Affect Affect: Constricted (labile, agitated, histrionic) - Speech Speech: Appropriate - Formal Thought Process Formal Thought Process: Delusions, Paranoia, Loosening of associations - Suicidal Ideation Suicidal Ideation: No - Homicidal Ideation Homicidal Ideation: No Goal/Treatment Plan - Goal/Treatment Plan Need for Continued Stay: Remain at risks for inpatient hospitalization, Severe depression anxiety, Discharge may exacerbated symptoms, Severe functional impairment Progress Toward Problem(s) and Goals/Treatment Plan: * group, milieu and supportive tx (as tolerated) * Appreciate f/u by Dr. Jiang (Nephrology) 09/24/18~patient may not need to be on propranolol (blood pressures have been low) * Appreciate f/u by Dr. Ca 09/24/18~encourage po intake/hydration, repeat labs * Seroquel 200 mg AMHS for psychosis and cogentin 1 mg AMHS for EPS prophylaxis * Neurontin 300 mg po daily * Prozac 30 mg daily for depression and anxiety * Ativan 2 mg po BID for anxiety and mood control * Abilify Maintenna was provided to patient on 09/08/18 * Ambien 5 mg po HS prn: insomnia * Haldol and Ativan prns for agitation * Considering ECT treatment, to be named POA as patient lacks capacity to make this treatment decision at this time. * Vitals reviewed and noted below: Selected Entries 09/24/18 09/24/18 09/24/18 07:20 09:17 16:00 Temperature 97.1 F L Pulse Rate 82 93 H Respiratory 16 Rate Blood Pressure 97/50 L 97/50 L 112/74 * Please refer to results from patient's physical exam/ROS/labs in progress notes from her recent admission to the medical floor from 09/10/18-09/12/18, as well as ER ROS and physical exam on 09/09/18 * Recent lab results noted below: Laboratory Results - last 24 hr 09/24/18 09:35 Sodium 140 Potassium 3.9 Chloride 106 Carbon Dioxide 26 Anion Gap 11 BUN 14 Creatinine 1.1 Est GFR ( Amer) > 60 Est GFR (Non-Af Amer) 53 Random Glucose 113 H Calcium 9.3 * Prior weekend labs noted below: Laboratory Results - last 24 hr 09/14/18 09/14/18 09/14/18 09:10 09:10 09:10 WBC 4.7 D RBC 4.39 Hgb 12.4 Hct 37.8 MCV 86.1 MCH 28.2 MCHC 32.8 RDW 16.4 H Plt Count 360 MPV 9.4 Gran % 50.8 Lymph % (Auto) 34.7 Ceiba % (Auto) 13.4 H Eos % (Auto) 0.9 L Baso % (Auto) 0.2 Gran # 2.39 Lymph # (Auto) 1.6 Ceiba # (Auto) 0.6 Eos # (Auto) 0.0 Baso # (Auto) 0.01 Sodium 140 Potassium 4.0 Chloride 104 Carbon Dioxide 21 Anion Gap 18 BUN 15 Creatinine 1.6 H Est GFR ( Amer) 42 Est GFR (Non-Af Amer) 35 Random Glucose 85 Calcium 10.0 Phosphorus 2.8 Magnesium 1.6 L Total Bilirubin 0.5 AST 89 H D ALT 57 H Alkaline Phosphatase 88 Total Protein 8.0 Albumin 4.4 Globulin 3.6 Albumin/Globulin Ratio 1.2 Triglycerides 102 Cholesterol 234 H LDL Cholesterol Direct 155 H HDL Cholesterol 60 TSH 3rd Generation 5.59 H Estimated Date of D/C: 10/03/18
[2018-09-25] MEDS: Enoxaparin 40 mg Syringe SC SCH (12:04)
--- NOTE | 2018-09-25 14:14 | PN ---
DATE: 09/24/2018 SUBJECTIVE: The patient is sitting on the floor. She is kind of easily sedated. She started walking around. She is kind of unbalance. I advised to go to her room, so she avoid falls. The patient is otherwise in no distress. No physical complaints and stable. PHYSICAL EXAMINATION: VITAL SIGNS: Temperature is 97.1, heart rate 82, blood pressure 110/67, respirations 20, saturation 94%. HEAD AND NECK: Normal. No JVD. No thyromegaly. CHEST: Clear bilaterally. CARDIAC: First sound and second sound normal. ABDOMEN: Soft, obese, and nontender. EXTREMITIES: No edema, except right upper extremity lymphedema from previous scar. LABORATORY DATA: Her last laboratory was, white count 3.4, hemoglobin 12.2, hematocrit 37, and platelets 373. Her chemistries was as follows: Sodium 140, potassium 3.9, chloride 106, bicarb 26, BUN 14, creatinine is normal at 1.1. Her blood sugar 113, her calcium 9.2. IMPRESSION AND PLAN: 1. Severe psychotic disorder, schizoaffective disorder. The patient still complain of some psychotic symptoms; however, at this time she seems sedated. No much complaint about any, but still distracted. She is still thinking about different things. We will continue current psych therapy as per psychiatrist. 2. Hypothyroidism. Continue levothyroxine. 3. Urinary tract infections and renal insufficiency, resolved. 4. Continue gastrointestinal and deep venous thrombosis prophylaxis. 5. 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 She seems tolerating diet. We will continue current therapy. We will give her Ensure 4 times a day to her best supplemental nutrition and encouraged oral fluids. Continue gastrointestinal and deep vein thrombosis prophylaxis. Igor Ca MD
--- NOTE | 2018-09-25 14:59 | PCM.FALL ---
Post Fall Progress Note - Post Fall Fall Date: 09/25/18 Fall Time: 14:44 Description of Fall: Jluis Keenan PGY2 House Doc Note Code start was called for patient in psych unit 5B. Upon arrival, the patient was noted to be on the ground with no visible bleeding noted. Per nursing staff, the patient was in front of the nursing station and was leaning against the glass when she fell backward onto the floor. It was a witnessed fall, but they are unsure of whether she struck her head. The patient experienced syncopal episode following the fall. The patient is kinyarwanda speaking, but would not relay any information to me as she was mumbling and not making sense. Patient received Seroquel and Ativan earlier in the day, but nothing within the last couple of hours. ROS was attempted but limited due to patient's current mental status. - Post Fall Exam Vital Sign: Temp Pulse Resp BP Pulse Ox 97.1 F L 80 16 124/70 99 09/24/18 07:20 09/25/18 09:08 09/24/18 07:20 09/25/18 09:08 09/21/18 10:15 Skull Exam: Negative for: Scalp wound, Scalp hematoma Eye Exam: Positive for: Pupils reactive Ear Exam: Negative for: Discharge Nose Exam: Negative for: Discharge Skin Exam: Negative for: Colour, Lacerations, Bruising Mouth Exam: Negative for: Tongue bitten Neck Exam: Negative for: Tenderness, Weakness Spinal Exam: Negative for: Tenderness, Weakness Chest Exam: Negative for: Difficulty breathing, Tenderness in collar bones, Tenderness in ribs Abdomen Exam: Negative for: Tenderness Pelvic Exam: Negative for: Tenderness Arm Exam: Negative for: Deformity, Alteration in range of movement Leg Exam: Negative for: Deformity, Alteration in range of movement Impression/Plan: CODE STAR in psych unit. Witnessed fall, unsure if she struck her head, and syncopal episode followed. - patient was helped up onto stretcher - patient was transferred to ED for further evaluation, case endorsed to ED
[2018-09-25 15:17] VITALS: BMI 30.9
[2018-09-25] MEDS: DiphenhydrAMINE 50 mg/ml Inj IM PRN (20:35)
[2018-09-26] MEDS: DiphenhydrAMINE 50 mg/ml Inj IM PRN ×2 (06:19→23:36)
[2018-09-26] MEDS: Levothyroxine 150 MCG TAB PO SCH (07:46)
[2018-09-26] MEDS: Pantoprazole 40 mg EC Tab PO SCH (07:46)
[2018-09-26] MEDS: Enoxaparin 40 mg Syringe SC SCH (09:35)
[2018-09-26] MEDS: Bacitracin Ointment 30 GM TUBE TOP SCH ×2 (09:35→16:17)
[2018-09-26] MEDS: Magnesium Oxide 400 mg Tab UD PO SCH ×2 (09:36→16:17)
--- NOTE | 2018-09-26 11:01 | PCM.PYCHPN ---
Psychiatric Progress Note - Psychiatric Progress Note Patient seen today, length of contact: 30 min Problems Identified/Issues Discussed: History of Present Illness and Precipitating Events: Patient is a 48-year-old [place] Citizen female with a psychiatric history of Schizoaffective disorder, multiple prior psychiatric admissions both in [place] and the [place]~ most recently hospitalized at [facility] x6 months ago, who was transferred from the medical floor yesterday after being treated from 09/10/18-09/12/18 for dysphagia. Patient was consulted by Dr. Ross on September 10 as well as this provider on September 11 and for symptoms of depression, disorganization, paranoia, gnosticist preoccupation as well as bizarre behavior. On the medical floor patient required 1:1 because she was caught drinking her urine out of the toilet. Patient was trying to punish herself because she didn't deserve to live. Patient attends outpatient psychiatric treatment of [facility]. Her most recent follow up was on September 08, 2018. Patient has been compliant with Abilify 10 mg daily, Prozac 10 mg daily Seroquel 100 mg BID as well as Abilify Maintenna last injected September 08, 2018. Prozac was increased to 40 mg daily and Seroquel was increased to 100 mg po daily, 50 mg po q3pm and 200 mg HS on the medical floor. As noted above patient has been demonstrating delusions disorganization and bizarre behavior on the medical floor and continues to demonstrate these symptoms on the psychiatric unit--however her impulse control and intensity of psychosis are worse on the psychiatric unit. Patient is depressed, hopeless, helpless and has very low self-worth. She punishes herself both mentally and physically. She prays loudly and incessantly. She still needs to be repeatedly redirected from bowing to staff and kissing their shoes. Hysterically, patient blurts "I dont want to go to the fire! and "I want to go to heaven!" She remains quite unpredictable and impulsive. She can still be heard wailing throughout the hallway of the psychiatric unit. Patient does not appear to be any physical distress and denies having any new discomfort or pain however she does appear to be in significant emotional distress and has poor insight and judgement. PSYCHIATRIC HISTORY Patient is a poor historian cannot provide reliable information regarding her psychiatric history however prior notes indicate that she has been psychiatrically hospitalized both in [place] and in [place]. Her most recent hospitalization was at the [facility] approximately six months ago. She attends outpatient at [facility] in and reportedly compliant with following medications Abilify 10 mg daily, Prozac 10 mg daily Seroquel 100 mg BID as well as Abilify Maintenna (last injected September 08, 2018). Prozac was increased to 40 mg daily and Seroquel was increased to 100 mg po daily, 50 mg po q3pm and 200 mg HS on the medical floor. Patient has a tendency to become very religiously preoccupied, disorganized and bizarre during her decompensations. She has a history of eating her feces and drinking her urine as a form of self punishment during these episodes SOCIAL HISTORY Patient was born in [place]. Shes been for about 22 years. She has two adult daughters (though told staff one of her daughters is 12 yo) who live with her and her . Patient denies any drug or alcohol issues in her life. PROGRESS NOTE 09/26/18 I reviewed recent notes, patient is known to this provider from my follow up on the medical floor prior to her transfer to the psychiatric unit. Patient continues to be delusional, bizarre and disorganized without much improvement since transfer from medicine. She remains impulsive and requires a lot of staff support to redirect her psychotic behaviors. For example she is religiously preoccupied with such intense self-loathing that she has repeatedly tried to eat her excrement last week. Patient usually cries, wails and smiles bizarrely during my 1:1s with her however she is a little calmer today. She comprehends Monegasque however her responses still contain a mixture of Amharic and Monegasque. Sometimes she wails incoherently which is what occurred after we discussed ECT today. Patient recalls that she had ECT in [place] and was agreeable to start ECT again on the unit. She appeared to have capacity however within a minute she begins to speak incoherently about going home and having a nice meal. Responses remain illogical and it is still difficult for staff or this provider to sustain a meaningful interview with her. Her histrionic behaviors persist despite much education and reassurance. It is worth noting that patient was observed interacting with other patients and showed willingness to accept their support this morning. Patient remains unpredictable and I agree with Dr. Ross, ECT treatment is an excellent intervention to try at this time based on prior success with this modality in her past. However she as continues to lack capacity for this consent, we are awaiting to obtain POA. I will continue to discuss this treatment option with her on the unit. Insight and judgement continue to be poor. Of note: Alin Blunt was called at 2:43 PM on because patient appeared to doze off while standing. As a result she fell and hit the ground. vital signs taken reads BP 111/70, P 81, R 20. Blood sugar 94 mgdl. Nursing processing talc and borate supervisor made aware and patient was seen by Dr. Keenan PGY-2. Patient was escorted to ER for further stabilization. Patient was cleared in the ER to return to unit. ER findings noted below: 09/25/18 18:14 EKG: Sinus arrythmia at [address] elevations, nl intervals 09/25/18 18:49 EXAM: CT Cervical Spine Without IV contrast. IMPRESSION: No acute cervical spine abnormality. Electronically signed on Sep 25, 2018 6:45:56 PM EST by: Dmitriy Fall M.D., PREMA Certified By ABR & CBCCT Fellowship Trained MRI and CT Specialist CT Head without Intravenous Contrast. IMPRESSION: No acute intracranial abnormality Electronically signed on Sep 25, 2018 6:44:38 PM EST by: Dmitriy Fall M.D., PREMA Certified By ABR & CBCCT Fellowship Trained MRI and CT Specialist Diagnostic Results: Schizoaffective Disorder r/o delirium Medication Change: Yes (seroquel decreased) Medical Record Reviewed: Yes Mental Status Examination - Cognitive Function Orientation: Place Memory: Impaired Attention: Poor Concentration: Poor Association: Loose Fund of Knowledge: Poor - Mood Mood: Depressed ("I do not want to go to hell"), Anxious - Affect Affect: Constricted (labile, agitated, histrionic) - Speech Speech: Appropriate - Formal Thought Process Formal Thought Process: Delusions, Paranoia, Loosening of associations - Suicidal Ideation Suicidal Ideation: No - Homicidal Ideation Homicidal Ideation: No Goal/Treatment Plan - Goal/Treatment Plan Need for Continued Stay: Remain at risks for inpatient hospitalization, Severe depression anxiety, Discharge may exacerbated symptoms, Severe functional impairment Progress Toward Problem(s) and Goals/Treatment Plan: * group, milieu and supportive tx (as tolerated) * Appreciate f/u by Dr. Jiang (Nephrology) 09/24/18~patient may not need to be on propranolol (blood pressures have been low) * Appreciate f/u by Dr. Ca 09/24/18 and 09/25/18~encourage po intake/hydration, repeat labs * Seroquel 200 mg AMHS for psychosis was changed to 75 mg po bid and 200 mg po HS to help with daytime sedation and reduce risk of further falls. * c/w Cogentin 1 mg AMHS for EPS prophylaxis * Neurontin 300 mg po daily * Prozac 30 mg daily for depression and anxiety * Ativan 2 mg po BID for anxiety and mood control * Abilify Maintenna was provided to patient on 09/08/18 * Ambien 5 mg po HS prn: insomnia * Haldol and Ativan prns for agitation * Considering ECT treatment, to be named POA as patient lacks capacity to make this treatment decision at this time. Will continue to discuss treatment option with patient * Vitals reviewed and noted below: Selected Entries 09/24/18 09/24/18 09/24/18 07:20 09:17 16:00 Temperature 97.1 F L Pulse Rate 82 93 H Respiratory 16 Rate Blood Pressure 97/50 L 97/50 L 112/74 09/25/18 09:08 Temperature Pulse Rate 80 Respiratory Rate Blood Pressure 124/70 * Please refer to results from patient's physical exam/ROS/labs in progress notes from her recent admission to the medical floor from 09/10/18-09/12/18, as well as ER ROS and physical exam on 09/09/18 Of note: Code Star was called at 2:43 PM on because patient appeared to doze off while standing. As a result she fell and hit the ground. vital signs taken reads BP 111/70, P 81, R 20. Blood sugar 94 mgdl. Nursing processing talc and borate supervisor made aware and patient was seen by Dr. Keenan PGY-2. Patient was escorted to ER for further stabilization. Patient was cleared in the ER to return to unit. ER findings noted below: 09/25/18 18:14 EKG: Sinus arrythmia at [address] elevations, nl intervals 09/25/18 18:49 EXAM: CT Cervical Spine Without IV contrast. IMPRESSION: No acute cervical spine abnormality. Electronically signed on Sep 25, 2018 6:45:56 PM EST by: Dmitriy Fall M.D., PREMA Certified By ABR & CBCCT Fellowship Trained MRI and CT Specialist CT Head without Intravenous Contrast. IMPRESSION: No acute intracranial abnormality Electronically signed on Sep 25, 2018 6:44:38 PM EST by: Dmitriy Fall M.D., PREMA Certified By ABR & CBCCT Fellowship Trained MRI and CT Specialist * Recent lab results noted below: Laboratory Results - last 24 hr 09/25/18 14:47 POC Glucose (mg/dL) 94 Laboratory Results - last 24 hr 09/24/18 09:35 Sodium 140 Potassium 3.9 Chloride 106 Carbon Dioxide 26 Anion Gap 11 BUN 14 Creatinine 1.1 Est GFR ( Amer) > 60 Est GFR (Non-Af Amer) 53 Random Glucose 113 H Calcium 9.3 * Prior weekend labs noted below: Laboratory Results - last 24 hr 09/14/18 09/14/18 09/14/18 09:10 09:10 09:10 WBC 4.7 D RBC 4.39 Hgb 12.4 Hct 37.8 MCV 86.1 MCH 28.2 MCHC 32.8 RDW 16.4 H Plt Count 360 MPV 9.4 Gran % 50.8 Lymph % (Auto) 34.7 [place] % (Auto) 13.4 H Eos % (Auto) 0.9 L Baso % (Auto) 0.2 Gran # 2.39 Lymph # (Auto) 1.6 [place] # (Auto) 0.6 Eos # (Auto) 0.0 Baso # (Auto) 0.01 Sodium 140 Potassium 4.0 Chloride 104 Carbon Dioxide 21 Anion Gap 18 BUN 15 Creatinine 1.6 H Est GFR ( Amer) 42 Est GFR (Non-Af Amer) 35 Random Glucose 85 Calcium 10.0 Phosphorus 2.8 Magnesium 1.6 L Total Bilirubin 0.5 AST 89 H D ALT 57 H Alkaline Phosphatase 88 Total Protein 8.0 Albumin 4.4 Globulin 3.6 Albumin/Globulin Ratio 1.2 Triglycerides 102 Cholesterol 234 H LDL Cholesterol Direct 155 H HDL Cholesterol 60 TSH 3rd Generation 5.59 H Estimated Date of D/C: 10/03/18
--- NOTE | 2018-09-26 13:06 | CP.PCM.PN ---
Subjective - Date & Time of Evaluation Date of Evaluation: 09/26/18 Time of Evaluation: 13:05 - Subjective Subjective: Nephrology Consultation Note: Assessment: Stable Acute Kidney Injury (N17.9) likely due to pre-renal state hx of HTN Ca breast s/p radiation and Rt arm lymphedema dysphagia psyhosis hyperlipidemia UTI Plan No acute need for renal replacement therapy at this time. . Hypertension control with meds as ordered. Maintain hemodynamics stable. Avoid hypotension. no ACEI/ARB due to TERESA. hold hctz due to pre renal state. hold aldactone as BP mostly on low side Monitor Input/Output, daily weights and renal function with basic metabolic panel pt to be encouraged to drink more water. d/w staff started vantin for UTI x 3 days course Dose meds/antibiotics for improved GFR. Glycemic control Further work up/management as per primary team Thanks for allowing me to participate in care of your patient. Please call if any Qs. had d/w team Dr Johnson Gibbs Office: [phone] Chief Complaint; unable to obtain Reason for consult: Acute Kidney Injury HPI: Pt is a 48 F with hx of hypertension, Ca breast s/p radiation and Rt arm lymphedema presented with complaints of difficulty swallowing, seen by GI and heme/onc, transferred to [facility] for psychosis and noted to have higher Cr 1.6 Denies OTC/herbal meds or NSAIDs No recent iodinated contrast exposure. No obvious episodes of low BP. renal consult for TERESA ROS: pt unable to provide any hx. mumbling incomprehensibly Physical Examination: General Appearance: in no acute respiratory distress Vitals reviewed and noted as below Head; Atraumatic, normocephalic ENT: no ulcers no thrush. Tongue is midline. Oropharynx: no rash or ulcers. EYES: Pupils are equal, round and reactive to light accommodation. Eye muscles and extraocular movement intact. Sclera is anicteric. Neck; supple no lymphadenopathy, no thyromegaly or bruit Lungs: Normal respiratory rate/effort. Breath sounds bilateral equal and clear Heart: Normal rate. s1s2 normal. No rub or gallop. Extremities: no edema. No varicose veins. Rt arm lymphedema Neurological: Patient is awake Skin: Warm and dry. Normal turgor. No rash. Palpitation: Normal elasticity for age Abdomen: Abdomen is soft. Bowel sounds +. There is no abdominal tenderness, no guarding/rigidity no organomegaly Psych: lack insight. flat affect. mumbling incomprehensibly MSK: no joint tenderness or swelling. Digits and nails normal, no deformity : kidney or bladder not palpable Labs/imaging reviewed. Past medical history, past surgical history, family history, social history, allergy reviewed and noted as below Family hx: no hx of CKD. Rest non-contributory Objective - Vital Signs/Intake and Output Vital Signs (last 24 hours): Temp Pulse Resp BP Pulse Ox 98.2 F 121 H 22 136/114 H 99 09/26/18 07:26 09/26/18 08:04 09/26/18 07:26 09/26/18 08:04 09/21/18 10:15 - Medications Medications: Current Medications Bacitracin (Bacitracin) 1 gm TOP BID [facility] Last Admin: 09/26/18 09:35 Dose: 1 oin Benztropine Mesylate (Cogentin) 1 mg PO AMHS DAT Last Admin: 09/25/18 22:35 Dose: 1 mg Diphenhydramine HCl (Benadryl) 50 mg IM Q6H PRN PRN Reason: Anxiety Last Admin: 09/26/18 06:19 Dose: 50 mg Enoxaparin Sodium (Lovenox) 40 mg SC DAILY [facility]; Protocol Last Admin: 09/26/18 09:35 Dose: Not Given Fluoxetine HCl (Prozac) 30 mg PO DAILY [facility] Last Admin: 09/26/18 08:03 Dose: 30 mg Folic Acid (Folic Acid) 1 mg PO DAILY [facility] Last Admin: 09/26/18 08:02 Dose: 1 mg Gabapentin (Neurontin) 300 mg PO DAILY DAT; Protocol Last Admin: 09/26/18 08:02 Dose: 300 mg Haloperidol (Haldol) 5 mg PO Q6H PRN; Protocol PRN Reason: agitation/psychosis Last Admin: 09/25/18 04:13 Dose: 5 mg Haloperidol Lactate (Haldol) 5 mg IM Q6H PRN; Protocol PRN Reason: Agitation Last Admin: 09/26/18 06:20 Dose: 5 mg Home Med (Home Med) 0.8 unit SC Q2W DAT Last Admin: 09/17/18 21:25 Dose: 0.8 unit Levothyroxine Sodium (Synthroid) 150 mcg PO 0600 DAT Last Admin: 09/26/18 07:46 Dose: 150 mcg Lorazepam (Ativan) 1 mg PO Q6 PRN; Protocol PRN Reason: Agitation Last Admin: 09/25/18 04:12 Dose: 1 mg Lorazepam (Ativan) 2 mg PO Q6H PRN; Protocol PRN Reason: anxiety/agitation Last Admin: 09/23/18 06:33 Dose: 2 mg Lorazepam (Ativan) 2 mg IM Q6 PRN; Protocol PRN Reason: Agitation Last Admin: 09/25/18 20:35 Dose: 2 mg Lorazepam (Ativan) 2 mg PO HS DAT; Protocol Last Admin: 09/26/18 06:28 Dose: Not Given Lorazepam (Ativan) 2 mg PO BID DAT; Protocol Last Admin: 09/26/18 08:03 Dose: 2 mg Magnesium Oxide (Mag-Ox) 400 mg PO BID DAT Last Admin: 09/26/18 09:36 Dose: 400 mg Pantoprazole Sodium (Protonix Ec Tab) 40 mg PO 0600 DAT Last Admin: 09/26/18 07:46 Dose: 40 mg Propranolol HCl (Inderal) 10 mg PO DAILY DAT Last Admin: 09/26/18 08:04 Dose: 10 mg Quetiapine Fumarate (Seroquel) 200 mg PO HS DAT; Protocol Last Admin: 09/25/18 22:34 Dose: 200 mg Quetiapine Fumarate (Seroquel) 75 mg PO BID DAT; Protocol Last Admin: 09/26/18 08:02 Dose: 75 mg Saliva Substitute (Saliva Substitute) 0 ml PO TID PRN PRN Reason: Dry mouth Last Admin: 09/21/18 10:12 Dose: 1 ml Zolpidem Tartrate (Ambien) 5 mg PO HS PRN; Protocol PRN Reason: Insomnia Last Admin: 09/19/18 21:00 Dose: 5 mg - Labs Labs: 09/22/18 07:30 09/24/18 09:35
--- NOTE | 2018-09-27 07:28 | CARD ---
APPROVED REPORT Date of service: 09/26/2018 EKG Measurement Heart [id number] <Conclusion> Normal sinus rhythm Low voltage No change
[2018-09-27] MEDS: Pantoprazole 40 mg EC Tab PO SCH (07:44)
[2018-09-27] MEDS: Levothyroxine 150 MCG TAB PO SCH (08:40)
[2018-09-27] MEDS: Magnesium Oxide 400 mg Tab UD PO SCH ×2 (08:41→16:46)
[2018-09-27] MEDS: Bacitracin Ointment 30 GM TUBE TOP SCH ×2 (08:42→17:03)
--- NOTE | 2018-09-27 09:11 | PCM.PYCHPN ---
Psychiatric Progress Note - Psychiatric Progress Note Patient seen today, length of contact: 30 min Problems Identified/Issues Discussed: History of Present Illness and Precipitating Events: Patient is a 48-year-old Montenegrin female with a psychiatric history of Schizoaffective disorder, multiple prior psychiatric admissions both in [place] and the [place]~ most recently hospitalized at [facility] x6 months ago, who was transferred from the medical floor yesterday after being treated from 09/10/18-09/12/18 for dysphagia. Patient was consulted by Dr. Ross on September 10 as well as this provider on September 11 and for symptoms of depression, disorganization, paranoia, samaritan preoccupation as well as bizarre behavior. On the medical floor patient required 1:1 because she was caught drinking her urine out of the toilet. Patient was trying to punish herself because she didn't deserve to live. Patient attends outpatient psychiatric treatment of [facility]. Her most recent follow up was on September 08, 2018. Patient has been compliant with Abilify 10 mg daily, Prozac 10 mg daily Seroquel 100 mg BID as well as Abilify Maintenna last injected September 08, 2018. Prozac was increased to 40 mg daily and Seroquel was increased to 100 mg po daily, 50 mg po q3pm and 200 mg HS on the medical floor. As noted above patient has been demonstrating delusions disorganization and bizarre behavior on the medical floor and continues to demonstrate these symptoms on the psychiatric unit--however her impulse control and intensity of psychosis are worse on the psychiatric unit. Patient is depressed, hopeless, helpless and has very low self-worth. She punishes herself both mentally and physically. She prays loudly and incessantly. She still needs to be repeatedly redirected from bowing to staff and kissing their shoes. Hysterically, patient blurts "I dont want to go to the fire! and "I want to go to heaven!" She remains quite unpredictable and impulsive. She can still be heard wailing throughout the hallway of the psychiatric unit. Patient does not appear to be any physical distress and denies having any new discomfort or pain however she does appear to be in significant emotional distress and has poor insight and judgement. PSYCHIATRIC HISTORY Patient is a poor historian cannot provide reliable information regarding her psychiatric history however prior notes indicate that she has been psychiatrically hospitalized both in [place] and in [place]. Her most recent hospitalization was at the [facility] approximately six months ago. She attends outpatient at [facility] in and reportedly compliant with following medications Abilify 10 mg daily, Prozac 10 mg daily Seroquel 100 mg BID as well as Abilify Maintenna (last injected September 08, 2018). Prozac was increased to 40 mg daily and Seroquel was increased to 100 mg po daily, 50 mg po q3pm and 200 mg HS on the medical floor. Patient has a tendency to become very religiously preoccupied, disorganized and bizarre during her decompensations. She has a history of eating her feces and drinking her urine as a form of self punishment during these episodes SOCIAL HISTORY Patient was born in [place]. Shes been for about 22 years. She has two adult daughters (though told staff one of her daughters is 12 yo) who live with her and her . Patient denies any drug or alcohol issues in her life. PROGRESS NOTE 09/27/18 I reviewed recent notes, patient is known to this provider from my follow up on the medical floor prior to her transfer to the psychiatric unit. Patient continues to be odd and disorganized with minimal improvement since transfer from medicine. She remains impulsive and requires a lot of staff support to redirect her psychotic behaviors. For example she is religiously preoccupied with such intense self-loathing that she has repeatedly tried to eat her excrement a week ago however there has been no repetition of these behaviors over the past week. Patient usually cries, wails and smiles bizarrely during my 1:1s with her. She comprehends Brazilian however her responses still contain a mixture of Hungarian and Brazilian. Patient continues to consent to ECT when this provider discusses it as a treatment option and thus far consistently expresses this consent x2 days. This provider repeatedly discusses this treatment option with patient due to the unpredictability of her mental status. It is still difficult for staff or this provider to sustain a meaningful interview with her. Her histrionic behaviors persist despite much education and reassurance. It is worth noting that patient was observed interacting with other patients and showed willingness to accept their support however she can be intrusive. She had multiple outbursts yesterday when redirected and required multiple prns for agitation. Patient remains unpredictable and I agree with Dr. Ross, ECT treatment is an excellent intervention to try at this time based on prior success with this modality in her past. Of note: Cannot r/o contribution of delirium to patient's presentation. Will check another Ua and Ucx. Most recent Ua/Ucx results were on 09/14/18, abx given x3 days 09/15/18-09/18/18. Diagnostic Results: Schizoaffective Disorder r/o delirium Medication Change: Yes (seroquel decreased) Medical Record Reviewed: Yes Mental Status Examination - Cognitive Function Orientation: Place Memory: Impaired Attention: Poor Concentration: Poor Association: Loose Fund of Knowledge: Poor - Mood Mood: Depressed ("I do not want to go to hell"), Anxious - Affect Affect: Constricted (labile, agitated, histrionic) - Speech Speech: Appropriate - Formal Thought Process Formal Thought Process: Delusions, Paranoia, Loosening of associations - Suicidal Ideation Suicidal Ideation: No - Homicidal Ideation Homicidal Ideation: No Goal/Treatment Plan - Goal/Treatment Plan Need for Continued Stay: Remain at risks for inpatient hospitalization, Severe depression anxiety, Discharge may exacerbated symptoms, Severe functional impairment Progress Toward Problem(s) and Goals/Treatment Plan: * group, milieu and supportive tx (as tolerated) * Appreciate f/u by Dr. Richmond (Nephrology) 09/26/18 * No acute need for renal replacement therapy at this time. . * Hypertension control with meds as ordered. * Maintain hemodynamics stable. Avoid hypotension. no ACEI/ARB due to TERESA. hold hctz due to pre renal state. hold aldactone as BP mostly on low side * Monitor Input/Output, daily weights and renal function with basic metabolic panel * pt to be encouraged to drink more water. d/w staff * vantin for UTI x 3 days course provided 09/15/18-09/18/18. Most recent Ua and Cx was on . * This provider will check another Ua and Ucx due to patient's continued confusion on the unit * Appreciate f/u by Dr. Jiang (Nephrology) 09/24/18 * ~patient may not need to be on propranolol (blood pressures have been low) * Appreciate f/u by Dr. Ca 09/24/18 and 09/25/18 * ~encourage po intake/hydration, repeat labs * Seroquel 200 mg AMHS for psychosis was changed to 75 mg po bid and 200 mg po HS to help with daytime sedation and reduce risk of further falls. * c/w Cogentin 1 mg AMHS for EPS prophylaxis * Neurontin 300 mg po daily * Prozac 30 mg daily for depression and anxiety * Ativan 2 mg po BID for anxiety and mood control * Abilifclyde Maintenna was provided to patient on 09/08/18 * Ambien 5 mg po HS prn: insomnia * Haldol and Ativan prns for agitation * Considering ECT treatment, to be named POA as patient lacks capacity to make this treatment decision at this time. Will continue to discuss treatment option with patient and ensure consistency of consent. Patient has been in agreement to try this treatment for 2 days and appears to have capacity for consent. * Vitals reviewed and noted below: Selected Entries 09/26/18 09/26/18 07:26 08:04 Temperature 98.2 F Pulse Rate 54 L 121 H Respiratory 22 Rate Blood Pressure 136/114 H 136/114 H * Please refer to results from patient's physical exam/ROS/labs in progress notes from her recent admission to the medical floor from 09/10/18-09/12/18, as well as ER ROS and physical exam on 09/09/18 Of note: Code Jose Raul was called at 2:43 PM on because patient appeared to doze off while standing. As a result she fell and hit the ground. vital signs taken reads BP 111/70, P 81, R 20. Blood sugar 94 mgdl. Nursing supervisor elementary education made aware and patient was seen by Dr. Keenan PGY-2. Patient was escorted to ER for further stabilization. Patient was cleared in the ER to return to unit. ER findings noted below: 09/25/18 18:14 EKG: Sinus arrythmia at [address] elevations, nl intervals 09/25/18 18:49 EXAM: CT Cervical Spine Without IV contrast. IMPRESSION: No acute cervical spine abnormality. Electronically signed on Sep 25, 2018 6:45:56 PM EST by: Dmitriy Fall M.D., PREMA Certified By [employer] Fellowship Trained MRI and CT Specialist CT Head without Intravenous Contrast. IMPRESSION: No acute intracranial abnormality Electronically signed on Sep 25, 2018 6:44:38 PM EST by: Dmitriy Fall M.D., PREMA Certified By [employer] Fellowship Trained MRI and CT Specialist * Recent lab results noted below: 09/14/18 17:40 Urine Culture - Final Urine Escherichia Coli Laboratory Results - last 24 hr 09/25/18 14:47 POC Glucose (mg/dL) 94 Laboratory Results - last 24 hr 09/24/18 09:35 Sodium 140 Potassium 3.9 Chloride 106 Carbon Dioxide 26 Anion Gap 11 BUN 14 Creatinine 1.1 Est GFR ( Amer) > 60 Est GFR (Non-Af Amer) 53 Random Glucose 113 H Calcium 9.3 * Prior weekend labs noted below: Laboratory Results - last 24 hr 09/14/18 09/14/18 09/14/18 09:10 09:10 09:10 WBC 4.7 D RBC 4.39 Hgb 12.4 Hct 37.8 MCV 86.1 MCH 28.2 MCHC 32.8 RDW 16.4 H Plt Count 360 MPV 9.4 Gran % 50.8 Lymph % (Auto) 34.7 Ray % (Auto) 13.4 H Eos % (Auto) 0.9 L Baso % (Auto) 0.2 Gran # 2.39 Lymph # (Auto) 1.6 Ray # (Auto) 0.6 Eos # (Auto) 0.0 Baso # (Auto) 0.01 Sodium 140 Potassium 4.0 Chloride 104 Carbon Dioxide 21 Anion Gap 18 BUN 15 Creatinine 1.6 H Est GFR ( Amer) 42 Est GFR (Non-Af Amer) 35 Random Glucose 85 Calcium 10.0 Phosphorus 2.8 Magnesium 1.6 L Total Bilirubin 0.5 AST 89 H D ALT 57 H Alkaline Phosphatase 88 Total Protein 8.0 Albumin 4.4 Globulin 3.6 Albumin/Globulin Ratio 1.2 Triglycerides 102 Cholesterol 234 H LDL Cholesterol Direct 155 H HDL Cholesterol 60 TSH 3rd Generation 5.59 H Estimated Date of D/C: 10/03/18
[2018-09-27] MEDS: Enoxaparin 40 mg Syringe SC SCH (09:26)
--- NOTE | 2018-09-27 11:14 | PN ---
DATE: 09/26/2018 SUBJECTIVE: The patient was seen. She is still sitting in the bed, was One-to-One. She still has irrelevant thoughts. She is talking about somebody dying, which never happened. She is talking about [place], talking about revolution in [place], and talking about cooking, talking about different things irrelevant. Occasionally she was crying and then she stopped. No physical distress and no other complaint noted on her. PHYSICAL EXAMINATION: VITAL SIGNS: Her temperature is 98.2; heart rate is 54, on repeat it was 121; blood pressure 176/114 and later on improved; her respiratory rate 18. HEAD/NECK: Normal. No JVD. No thyromegaly. CHEST: Clear bilateral. CARDIAC: First sound and second sound normal. ABDOMEN: Soft, obese, nontender. EXTREMITIES: No edema except right upper extremity lymphedema. NEUROLOGIC: Normal. LABORATORY STUDIES: No labs ordered. IMPRESSION AND PLAN: 1. Schizoaffective disorder. Still significant symptoms and diseases. Still needs more control. Continue antipsychotic as per psychiatrist. The patient is getting Ativan p.r.n. She is getting Haldol p.r.n. Getting Inderal. She is getting Cogentin, Lovenox, mag oxide, Protonix, Prozac, Seroquel 200 at night and 75 b.i.d., and Synthroid 150 mcg p.o. daily. 2. Hypothyroidism. 3. Gastritis and history of anemia in the past. Continue current therapy. Follow up clinically. Igor Ca MD
--- NOTE | 2018-09-27 13:40 | PN ---
DATE: 09/25/2018 SUBJECTIVE: The patient had been sedated. She had a fall. The patient went to the ER, had a CT of the head which was negative. She is sedated, but she knows where she is and she recognized me. She is awake. PHYSICAL EXAMINATION VITAL SIGNS: Temperature 98, heart rate 80, blood pressure 124/70, and respirations 18. HEAD AND NECK: Normal, otherwise tiny scar in the forehead from her head in the past to try to pray and otherwise negative. No JVD. No thyromegaly. CHEST: Clear bilaterally. CARDIAC: First sound and second sound are normal. ABDOMEN: Soft, obese, nontender. EXTREMITIES: No edema. Right upper extremity has chronic lymphedema from breast surgery. NEUROLOGIC: Normal. LABORATORY DATA: As I mentioned, CT of the head which is negative. IMPRESSION: 1. Schizoaffective disorder. The patient does have abnormal thoughts, irrelevant thoughts, and delusional thoughts, nonrealistic thinking plus she also seems depressed, sometimes she cries, and not seems stable despite of Haldol, high-dose sedation, and antipsychotic therapy for more than a week or 10 days. We will continue followup with her psychiatrist and the patient may need ECT according to psychiatrist and family did work with her in the past. 2. Hypothyroidism. Continue levothyroxine. 3. History of dehydration, renal insufficiency, resolved. History of urinary tract infections, resolved. PLAN: Continue current therapy. Continue GI and DVT prophylaxis. The patient is walking around; however, sometimes she did sedated and she sleeps for a good period of time. Continue current therapy. Igor Ca MD
[2018-09-27] MEDS: DiphenhydrAMINE 50 mg/ml Inj IM PRN (20:50)
[2018-09-28] MEDS: Pantoprazole 40 mg EC Tab PO SCH (07:15)
[2018-09-28] MEDS: Levothyroxine 150 MCG TAB PO SCH (09:00)
[2018-09-28] MEDS: Magnesium Oxide 400 mg Tab UD PO SCH ×2 (09:01→16:36)
[2018-09-28] MEDS: Enoxaparin 40 mg Syringe SC SCH (09:01)
--- NOTE | 2018-09-28 10:34 | PCM.PYCHPN ---
Psychiatric Progress Note - Psychiatric Progress Note Patient seen today, length of contact: 30 min Patient Chief Complaint: "I do not hear any voices, but all of a sudden CABOOM!!!" Problems Identified/Issues Discussed: this bid writer attempted to discuss Suicide/ homicide prevention, past psychiatric h/o, current psychiatric symptoms, medical problems, risk/benefits and al ternatives of medications, medications compliance, coping strategies, substance abuse h/o, relapse prevention, importance of follow up with psychiatrist and therapist, discharge plan. Medical Problems: pt was dehydrated dysphagia is better UTI, on antibiotics Diagnostic Results: 09/14/18 09:10 09/15/18 08:00 Lab Results 09/15/18 08:00: Sodium 140, Potassium 4.0, Chloride 102, Carbon Dioxide 28, Anion Gap 14, BUN 15, Creatinine 1.2, Est GFR ( Amer) 58, Est GFR (Non-Af Amer) 48, Random Glucose 97, Calcium 9.8 09/14/18 17:40: Urine Color Yellow, Urine Appearance Sl cloudy, Urine pH 6.0, Ur Specific [place] 1.010, Urine Protein Negative, Urine Glucose (UA) Negative, Urine Ketones Negative, Urine Blood Small H, Urine Nitrate Positive H, Urine Bilirubin Negative, Urine Urobilinogen 0.2, Ur Leukocyte Esterase Small H, Urine RBC 5 - 10, Urine WBC 20 - 25, Ur Epithelial Cells 10 - 12, Urine Bacteria Many 09/14/18 09:10: RPR Nonreactive 09/14/18 09:10: TSH 3rd Generation 5.59 H 09/14/18 09:10: Sodium 140, Potassium 4.0, Chloride 104, Carbon Dioxide 21, Anion Gap 18, BUN 15, Creatinine 1.6 H, Est GFR ( Amer) 42, Est GFR (Non- Af Amer) 35, Random Glucose 85, Calcium 10.0, Phosphorus 2.8, Magnesium 1.6 L, Total Bilirubin 0.5, AST 89 H D, ALT 57 H, Alkaline Phosphatase 88, Total Protein 8.0, Albumin 4.4, Globulin 3.6, Albumin/Globulin Ratio 1.2, Triglycerides 102, Cholesterol 234 H, LDL Cholesterol Direct 155 H, HDL Cholesterol 60 09/14/18 09:10: WBC 4.7 D, RBC 4.39, Hgb 12.4, Hct 37.8, MCV 86.1, MCH 28.2, MCHC 32.8, RDW 16.4 H, Plt Count 360, MPV 9.4, Gran % 50.8, Lymph % (Auto) 34.7, Alexander % (Auto) 13.4 H, Eos % (Auto) 0.9 L, Baso % (Auto) 0.2, Gran # 2.39, Lymph # (Auto) 1.6, Alexander # (Auto) 0.6, Eos # (Auto) 0.0, Baso # (Auto) 0.01 Microbiology 09/14/18 17:40 Urine Urine Culture - Preliminary Gram Negative [facility] Results - last 24 hr 09/19/18 09:55 WBC 4.5 RBC 4.35 Hgb 12.2 Hct 38.3 MCV 88.0 MCH 28.0 MCHC 31.9 RDW 16.6 H Plt Count 318 MPV 9.6 Gran % 54.3 Lymph % (Auto) 30.0 Alexander % (Auto) 14.8 H Eos % (Auto) 0.7 L Baso % (Auto) 0.2 Gran # 2.43 Lymph # (Auto) 1.3 Alexander # (Auto) 0.7 H Eos # (Auto) 0.0 Baso # (Auto) 0.01 Abnormal Lab Results 09/22/18 09/22/18 07:30 07:30 WBC 3.4 L D RBC 4.34 Hgb 12.2 Hct 37.4 MCV 86.2 MCH 28.1 MCHC 32.6 RDW 16.5 H Plt Count 373 MPV 9.7 Sodium 141 Potassium 5.0 Chloride 107 Carbon Dioxide 25 Anion Gap 14 BUN 18 Creatinine 1.5 H Est GFR ( Amer) 45 Est GFR (Non-Af Amer) 37 Random Glucose 98 Calcium 10.2 Laboratory Results - last 72 hr 09/25/18 14:47 POC Glucose (mg/dL) 94 Vital Signs Temp Pulse Resp BP Pulse Ox 09/27/18 16:00 52 L 108/81 09/27/18 08:40 84 122/67 09/27/18 07:00 97.3 F L 84 18 122/67 09/26/18 08:04 121 H 136/114 H 09/26/18 07:26 98.2 F 54 L 22 136/114 H 09/25/18 09:08 80 124/70 09/24/18 16:00 93 H 112/74 09/24/18 09:17 97/50 L 09/24/18 07:20 97.1 F L 82 16 97/50 L 09/24/18 07:18 97.1 F L 82 20 97/50 L 09/23/18 16:00 86 110/67 09/23/18 06:49 97.7 F 77 20 114/69 09/22/18 16:00 83 103/57 L 09/22/18 12:26 97 H 110/72 09/21/18 10:21 90 116/71 09/21/18 10:15 98.4 F 90 20 116/71 99 09/20/18 15:45 100 H 95/70 L 09/20/18 10:04 93 H 146/96 H 09/20/18 06:48 98.1 F 79 16 98/60 L 09/19/18 16:00 60 116/88 09/19/18 07:28 97.3 F L 91 H 20 115/75 09/17/18 15:00 73 H 128/106 H 09/17/18 09:30 68 116/62 09/17/18 07:25 97.1 F L 80 18 92/58 L 09/16/18 16:00 102 H 120/81 09/16/18 09:47 104 H 124/99 H 09/16/18 07:17 98.0 F 87 18 98/59 L 09/15/18 09:07 103 H 106/70 09/15/18 07:00 97.8 F 105 H 19 86/60 L 09/14/18 16:28 90 139/118 H 09/14/18 07:00 97.9 F 60 17 115/72 09/13/18 08:30 114 H 20 129/100 H 09/13/18 07:00 98.5 F 55 L 22 169/114 H 09/13/18 06:50 55 L 169/114 H 09/12/18 16:11 97.2 F L 80 20 114/64 09/12/18 15:39 20 DSM 5 Symptoms Update: Patient is a 48-year-old [place] female with a psychiatric history of Schizoaffective disorder, multiple prior psychiatric admissions both in [place] and the [place]~ most recently hospitalized at [facility] x6 months ago, who was transferred from the medical floor after being treated from 09/10/18-09/12/18 for dysphagia. Pt was presented with depression, disorganization, paranoia, congregation preoccupation as well as bizarre behavior. On the medical floor patient required 1:1 because she was caught drinking her urine out of the toilet. Patient was trying to punish herself because she didn't deserve to live. Patient attends outpatient psychiatric treatment of [facility]. Her most recent follow up was on September 08, 2018. Patient has been compliant with Abilify 10 mg daily, Prozac 10 mg daily Seroquel 100 mg BID as well as Abilify Maintenna last injected September 08, 2018. Prozac was increased to 40 mg daily and Seroquel was increased to 100 mg po daily, 50 mg po q3pm and 200 mg HS on the medical floor. PROGRESS NOTE 09/28/18 I reviewed recent notes, interviewed pt, as per report pt is not improving much, still delusional, disorganized, screaming, requires 1:1 observation for being agitated, cries and wails. She remains impulsive and requires a lot of staff support to redirect her psychotic behaviors. For example she is religiously preoccupied with such intense self-loathing that she has repeatedly tried to eat her excrement a week ago, but as per 's repot there has been no repetition of these behaviors over the past week. Pt communicates with mixture of Estonian and Yakut, today pt said that "I do not hear any voices, but all of a sudden CABOOM!!!", then started to scream". Pt might benefit from ECT because pt responded well back in [place], but now pt lacks capacity to sign consent for treatment. She had multiple outbursts 09/27/18 when redirected and required multiple prns for agitation. Of note: Cannot r/o contribution of delirium to patient's presentation. Will check another Ua and Ucx. Most recent Ua/Ucx results were on 09/14/18, abx given x3 days 09/15/18-09/18/18. Diagnostic Results: Schizoaffective Disorder r/o delirium Medication Change: No Medical Record Reviewed: Yes Consults ordered or reviewed: patient was seen by medical team as well as nephrology team Mental Status Examination - Cognitive Function Orientation: Place Memory: Impaired Attention: Poor Concentration: Poor Association: Loose Fund of Knowledge: Poor - Mood Mood: Depressed ("I do not want to go to hell"), Anxious - Affect Affect: Constricted (labile, agitated, histrionic) - Speech Speech: Appropriate - Formal Thought Process Formal Thought Process: Delusions, Paranoia, Loosening of associations - Suicidal Ideation Suicidal Ideation: No - Homicidal Ideation Homicidal Ideation: No Goal/Treatment Plan - Goal/Treatment Plan Need for Continued Stay: Remain at risks for inpatient hospitalization, Severe depression anxiety, Discharge may exacerbated symptoms, Severe functional impairment Progress Toward Problem(s) and Goals/Treatment Plan: group, milieu and supportive tx (as tolerated) Cogentin 1 mg twice a day for EPS Prozac 30 mg daily for depression and anxiety ativan 2mg po tid for anxiety and akathesia seroquel 75mg bid and 200mg po hs for psychosis Twila Hartman was provided to patient on 09/08/18 Haldol Benadryl and Ativan as needed for agitation ECT might be helpful, at the same time patient lacks capacity to make decision about this procedure and now,, patient does not have power of employment law attorney SW consultation for discharge plan and social issues Family involvement, pt wanted her to participate in her care family meeting took place today 09/19/18, discussed clozaril, risk/benefits and alternatives discussed Follow up on labs Will monitor closely Pt was educated about risk/benefits and alternatives of medications, coping strategies (safety plan, suicide prevention), relapse prevention, importance of follow up with psychiatrist and therapist, stay away from drugs/alcohol/smoking Estimated Date of D/C: 10/03/18
[2018-09-28] MEDS: Bacitracin Ointment 30 GM TUBE TOP SCH ×2 (11:09→17:46)
[2018-09-28] MEDS: DiphenhydrAMINE 50 mg/ml Inj IM PRN ×2 (11:15→20:59)
--- NOTE | 2018-09-28 21:59 | PN ---
DATE: 09/27/2018 SUBJECTIVE: The patient is sedated. She did have periods of agitations, still having thoughts everywhere and have clinically not significant change. She still has problem with her thoughts and plan for ECT, awaiting for the to give a consent. PHYSICAL EXAMINATION: VITAL SIGNS: On 09/27/2018, temperature 97.6, heart rate 84, blood pressure 122/67, respirations 18. HEAD AND NECK: Normal. No JVD. No thyromegaly. CHEST: Clear bilaterally. CARDIAC: First sound and second sound are normal. ABDOMEN: Soft and nontender. EXTREMITIES: No edema except the right upper extremity has lymphedema. NEUROLOGIC: Normal. LABORATORY DATA: Noted for TSH 5.59. She is on levothyroxine which has been adjusted, and her chemistry, last BUN 14, creatinine 1.1, blood sugar runs 94. Last liver function test shows slight elevation in AST, otherwise, normal total bilirubin, normal ALT and alk phos. IMPRESSION AND PLAN: 1. Schizoaffective disorder, still active psychotic. Continue Haldol p.r.n., Ativan, Seroquel 200 at bedtime and 75 b.i.d. The patient is still psychotic in spite of all these and will continue to follow up with the psychiatrist. 2. History of urinary tract infection, renal insufficiency is improving. The patient carries p.o. drinking, history of breast cancer with right arm lymphedema stable. PLAN: Continue GI and DVT prophylaxis. CURRENT MEDICATIONS: Ambien 5 mg at night; Ativan 2 mg p.o. every 6 hours and 2 mg IM every 6 hours p.r.n. plus 2 mg at bedtime and 2 mg p.o. b.i.d., so she is getting total of 6 mg Ativan; plus she is getting Inderal 10 mg once a day; Haldol 5 mg p.o. every 6 hours p.r.n. and 5 mg IM every 6 hours p.r.n, she is getting more IM than anything if needed; Lovenox 40 subcutaneously daily; magnesium oxide 400 b.i.d.; Neurontin 300 mg p.o. daily; Protonix 40 every day; Prozac 30 mg p.o. daily; saliva substitute for dry mouth, saliva substitute is three times a day; also getting Seroquel 200 at night and 75 daily; Synthroid 150 p.o. every day. Continue current therapy. Followup plan was clinically. Igor Ca MD
[2018-09-29] MEDS: Levothyroxine 150 MCG TAB PO SCH (10:43)
[2018-09-29] MEDS: Pantoprazole 40 mg EC Tab PO SCH (10:43)
[2018-09-29] MEDS: Magnesium Oxide 400 mg Tab UD PO SCH ×2 (10:43→18:49)
[2018-09-29] MEDS: Enoxaparin 40 mg Syringe SC SCH (11:00)
[2018-09-29] MEDS: Bacitracin Ointment 30 GM TUBE TOP SCH ×2 (12:45→18:49)
--- NOTE | 2018-09-29 13:56 | CP.PCM.PN ---
Subjective - Date & Time of Evaluation Date of Evaluation: 09/29/18 Time of Evaluation: 13:55 - Subjective Subjective: Nephrology Consultation Note: Assessment: Stable Acute Kidney Injury (N17.9) likely due to pre-renal state hx of HTN Ca breast s/p radiation and Rt arm lymphedema dysphagia psyhosis hyperlipidemia UTI Plan No acute need for renal replacement therapy at this time. . Hypertension control with meds as ordered. Maintain hemodynamics stable. Avoid hypotension. no ACEI/ARB due to TERESA. hold hctz due to pre renal state. hold aldactone as BP mostly on low side Monitor Input/Output, daily weights and renal function with basic metabolic panel pt to be encouraged to drink more water. d/w staff had vantin for UTI x 3 days course Dose meds/antibiotics for improved GFR. Glycemic control Further work up/management as per primary team Thanks for allowing me to participate in care of your patient. Please call if any Qs. will follow further PRN basis. had d/w team Dr Johnson Gibbs Office: [phone] Chief Complaint; unable to obtain Reason for consult: Acute Kidney Injury HPI: Pt is a 48 F with hx of hypertension, Ca breast s/p radiation and Rt arm lymphedema presented with complaints of difficulty swallowing, seen by GI and heme/onc, transferred to U for psychosis and noted to have higher Cr 1.6 Denies OTC/herbal meds or NSAIDs No recent iodinated contrast exposure. No obvious episodes of low BP. renal consult for TERESA ROS: pt unable to provide any hx. mumbling incomprehensibly Physical Examination: General Appearance: in no acute respiratory distress Vitals reviewed and noted as below Head; Atraumatic, normocephalic ENT: no ulcers no thrush. Tongue is midline. Oropharynx: no rash or ulcers. EYES: Pupils are equal, round and reactive to light accommodation. Eye muscles a nd extraocular movement intact. Sclera is anicteric. Neck; supple no lymphadenopathy, no thyromegaly or bruit Lungs: Normal respiratory rate/effort. Breath sounds bilateral equal and clear Heart: Normal rate. s1s2 normal. No rub or gallop. Extremities: no edema. No varicose veins. Rt arm lymphedema Neurological: Patient is awake Skin: Warm and dry. Normal turgor. No rash. Palpitation: Normal elasticity for age Abdomen: Abdomen is soft. Bowel sounds +. There is no abdominal tenderness, no guarding/rigidity no organomegaly Psych: lack insight. flat affect. mumbling incomprehensibly MSK: no joint tenderness or swelling. Digits and nails normal, no deformity : kidney or bladder not palpable Labs/imaging reviewed. Past medical history, past surgical history, family history, social history, allergy reviewed and noted as below Family hx: no hx of CKD. Rest non-contributory Objective - Vital Signs/Intake and Output Vital Signs (last 24 hours): Temp Pulse Resp BP Pulse Ox 97.3 F L 102 H 18 126/107 H 99 09/27/18 07:00 09/29/18 10:38 09/27/18 07:00 09/29/18 10:38 09/21/18 10:15 - Medications Medications: Current Medications Acetaminophen (Tylenol 325mg Tab) 650 mg PO Q6H PRN PRN Reason: Pain, moderate (4-7) Bacitracin (Bacitracin) 1 gm TOP BID [facility] Last Admin: 09/29/18 12:45 Dose: 1 oin Diphenhydramine HCl (Benadryl) 50 mg IM Q6H PRN PRN Reason: Anxiety Last Admin: 09/28/18 20:59 Dose: 50 mg Enoxaparin Sodium (Lovenox) 40 mg SC DAILY [facility]; Protocol Last Admin: 09/28/18 09:01 Dose: 40 mg Fluoxetine HCl (Prozac) 30 mg PO DAILY [facility] Last Admin: 09/29/18 10:39 Dose: 30 mg Folic Acid (Folic Acid) 1 mg PO DAILY [facility] Last Admin: 09/29/18 10:42 Dose: 1 mg Gabapentin (Neurontin) 300 mg PO DAILY DAT; Protocol Last Admin: 09/29/18 10:41 Dose: 300 mg Haloperidol (Haldol) 5 mg PO Q6H PRN; Protocol PRN Reason: agitation/psychosis Last Admin: 09/28/18 16:36 Dose: 5 mg Haloperidol Lactate (Haldol) 5 mg IM Q6H PRN; Protocol PRN Reason: Agitation Last Admin: 09/28/18 21:00 Dose: 5 mg Home Med (Home Med) 0.8 unit SC Q2W DAT Last Admin: 09/17/18 21:25 Dose: 0.8 unit Levothyroxine Sodium (Synthroid) 150 mcg PO 0600 DAT Last Admin: 09/29/18 10:43 Dose: 150 mcg Lorazepam (Ativan) 2 mg PO Q6H PRN; Protocol PRN Reason: anxiety/agitation Last Admin: 09/23/18 06:33 Dose: 2 mg Lorazepam (Ativan) 2 mg IM Q6 PRN; Protocol PRN Reason: Agitation Last Admin: 09/28/18 20:59 Dose: 2 mg Lorazepam (Ativan) 2 mg PO HS DAT; Protocol Last Admin: 09/28/18 22:36 Dose: 2 mg Lorazepam (Ativan) 2 mg PO BID DAT; Protocol Last Admin: 09/29/18 10:41 Dose: 2 mg Magnesium Oxide (Mag-Ox) 400 mg PO BID DAT Last Admin: 09/29/18 10:43 Dose: 400 mg Pantoprazole Sodium (Protonix Ec Tab) 40 mg PO 0600 DAT Last Admin: 09/29/18 10:43 Dose: 40 mg Propranolol HCl (Inderal) 10 mg PO DAILY DAT Last Admin: 09/29/18 10:38 Dose: 10 mg Quetiapine Fumarate (Seroquel) 200 mg PO HS DAT; Protocol Last Admin: 09/28/18 22:36 Dose: 200 mg Quetiapine Fumarate (Seroquel) 75 mg PO BID DAT; Protocol Last Admin: 09/29/18 10:40 Dose: 75 mg Saliva Substitute (Saliva Substitute) 0 ml PO TID PRN PRN Reason: Dry mouth Last Admin: 09/21/18 10:12 Dose: 1 ml Zolpidem Tartrate (Ambien) 5 mg PO HS PRN; Protocol PRN Reason: Insomnia Last Admin: 09/19/18 21:00 Dose: 5 mg - Labs Labs: 09/22/18 07:30 09/24/18 09:35
--- NOTE | 2018-09-29 16:24 | PCM.PYCHPN ---
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 Medical Problems: pt was dehydrated dysphagia is better UTI, on antibiotics Diagnostic Results: 09/14/18 09:10 09/15/18 08:00 Lab Results 09/15/18 08:00: Sodium 140, Potassium 4.0, Chloride 102, Carbon Dioxide 28, Anion Gap 14, BUN 15, Creatinine 1.2, Est GFR ( Amer) 58, Est GFR (Non-Af Amer) 48, Random Glucose 97, Calcium 9.8 09/14/18 17:40: Urine Color Yellow, Urine Appearance Sl cloudy, Urine pH 6.0, Ur Specific [place] 1.010, Urine Protein Negative, Urine Glucose (UA) Negative, Urine Ketones Negative, Urine Blood Small H, Urine Nitrate Positive H, Urine Bilirubin Negative, Urine Urobilinogen 0.2, Ur Leukocyte Esterase Small H, Urine RBC 5 - 10, Urine WBC 20 - 25, Ur Epithelial Cells 10 - 12, Urine Bacteria Many 09/14/18 09:10: RPR Nonreactive 09/14/18 09:10: TSH 3rd Generation 5.59 H 09/14/18 09:10: Sodium 140, Potassium 4.0, Chloride 104, Carbon Dioxide 21, Anion Gap 18, BUN 15, Creatinine 1.6 H, Est GFR ( Amer) 42, Est GFR (Non- Af Amer) 35, Random Glucose 85, Calcium 10.0, Phosphorus 2.8, Magnesium 1.6 L, Total Bilirubin 0.5, AST 89 H D, ALT 57 H, Alkaline Phosphatase 88, Total Protein 8.0, Albumin 4.4, Globulin 3.6, Albumin/Globulin Ratio 1.2, Triglycerides 102, Cholesterol 234 H, LDL Cholesterol Direct 155 H, HDL Cholesterol 60 09/14/18 09:10: WBC 4.7 D, RBC 4.39, Hgb 12.4, Hct 37.8, MCV 86.1, MCH 28.2, MCHC 32.8, RDW 16.4 H, Plt Count 360, MPV 9.4, Gran % 50.8, Lymph % (Auto) 34.7, [place] % (Auto) 13.4 H, Eos % (Auto) 0.9 L, Baso % (Auto) 0.2, Gran # 2.39, Lymph # (Auto) 1.6, [place] # (Auto) 0.6, Eos # (Auto) 0.0, Baso # (Auto) 0.01 Microbiology 09/14/18 17:40 Urine Urine Culture - Preliminary Gram Negative [facility] Laboratory Results - last 24 hr 09/19/18 09:55 WBC 4.5 RBC 4.35 Hgb 12.2 Hct 38.3 MCV 88.0 MCH 28.0 MCHC 31.9 RDW 16.6 H Plt Count 318 MPV 9.6 Gran % 54.3 Lymph % (Auto) 30.0 [place] % (Auto) 14.8 H Eos % (Auto) 0.7 L Baso % (Auto) 0.2 Gran # 2.43 Lymph # (Auto) 1.3 [place] # (Auto) 0.7 H Eos # (Auto) 0.0 Baso # (Auto) 0.01 Abnormal Lab Results 09/22/18 09/22/18 07:30 07:30 WBC 3.4 L D RBC 4.34 Hgb 12.2 Hct 37.4 MCV 86.2 MCH 28.1 MCHC 32.6 RDW 16.5 H Plt Count 373 MPV 9.7 Sodium 141 Potassium 5.0 Chloride 107 Carbon Dioxide 25 Anion Gap 14 BUN 18 Creatinine 1.5 H Est GFR ( Amer) 45 Est GFR (Non-Af Amer) 37 Random Glucose 98 Calcium 10.2 Laboratory Results - last 72 hr 09/25/18 14:47 POC Glucose (mg/dL) 94 Vital Signs Temp Pulse Resp BP Pulse Ox 09/27/18 16:00 52 L 108/81 09/27/18 08:40 84 122/67 09/27/18 07:00 97.3 F L 84 18 122/67 09/26/18 08:04 121 H 136/114 H 09/26/18 07:26 98.2 F 54 L 22 136/114 H 09/25/18 09:08 80 124/70 09/24/18 16:00 93 H 112/74 09/24/18 09:17 97/50 L 09/24/18 07:20 97.1 F L 82 16 97/50 L 09/24/18 07:18 97.1 F L 82 20 97/50 L 09/23/18 16:00 86 110/67 09/23/18 06:49 97.7 F 77 20 114/69 09/22/18 16:00 83 103/57 L 09/22/18 12:26 97 H 110/72 09/21/18 10:21 90 116/71 09/21/18 10:15 98.4 F 90 20 116/71 99 09/20/18 15:45 100 H 95/70 L 09/20/18 10:04 93 H 146/96 H 09/20/18 06:48 98.1 F 79 16 98/60 L 09/19/18 16:00 60 116/88 09/19/18 07:28 97.3 F L 91 H 20 115/75 09/17/18 15:00 73 H 128/106 H 09/17/18 09:30 68 116/62 09/17/18 07:25 97.1 F L 80 18 92/58 L 09/16/18 16:00 102 H 120/81 09/16/18 09:47 104 H 124/99 H 09/16/18 07:17 98.0 F 87 18 98/59 L 09/15/18 09:07 103 H 106/70 09/15/18 07:00 97.8 F 105 H 19 86/60 L 09/14/18 16:28 90 139/118 H 09/14/18 07:00 97.9 F 60 17 115/72 09/13/18 08:30 114 H 20 129/100 H 09/13/18 07:00 98.5 F 55 L 22 169/114 H 09/13/18 06:50 55 L 169/114 H 09/12/18 16:11 97.2 F L 80 20 114/64 09/12/18 15:39 20 DSM 5 Symptoms Update: Patient is a 48-year-old [place] female with a psychiatric history of Schizoaffective disorder, multiple prior psychiatric admissions both in [place] nd the [place]~ most recently hospitalized at [facility] ([facility]3] x6 months ago, who was transferred from the medical floor after being treated from 09/10/18-09/12/18 for dysphagia. Pt was presented with depression, disorganization, paranoia, yazdanism preoccupation as well as bizarre behavior. On the medical floor patient required 1:1 because she was caught drinking her urine out of the toilet. Patient was trying to punish herself because she didn't deserve to live. Patient attends outpatient psychiatric treatment of [facility] ([facility]3]. Her most recent follow up was on September 08, 2018. Patient has been compliant with Abilify 10 mg daily, Prozac 10 mg daily Seroquel 100 mg BID as well as Abilify Maintenna last injected September 08, 2018. Prozac was increased to 40 mg daily and Seroquel was increased to 100 mg po daily, 50 mg po q3pm and 200 mg HS on the medical floor. pt was seen at the treatment team meeting, utilized [employer] translation system for interpretation #0787, pt presented to be delusional, disorganized, in the middle of conversation pt started to whisper incoherently, even hourly sign language interpreter had difficult time to understand what pt was trying to say. pt is still on 1:1. pt was educated about ECT but pt said firm "no" considering the fact pt had ECT in the past, most likely pt knows what is this procedure about, pt was educated about Clozaril again, pt said "whatever you wish", this engineering technical writer had prolonged conversation with pt's and pt about a week ago, will resume clozaril, will do CBC with differential stat, pt was already [facility] at [facility]. Pt might benefit from ECT because pt responded well back in [place], but now pt lacks capacity to sign consent for treatment. She had multiple outbursts 09/27/18 when redirected and required multiple prns for agitation. Of note: Cannot r/o contribution of delirium to patient's presentation. Will check another Ua and Ucx. Most recent Ua/Ucx results were on 09/14/18, abx given x3 days 09/15/18-09/18/18. Diagnostic Results: Schizoaffective Disorder r/o delirium Medication Change: Yes (seroquel increased) Medical Record Reviewed: Yes Consults ordered or reviewed: patient was seen by medical team as well as nephrology team Mental Status Examination - Cognitive Function Orientation: Place Memory: Impaired Attention: Poor Concentration: Poor Association: Loose Fund of Knowledge: Poor - Mood Mood: Depressed ("I do not want to go to hell"), Anxious - Affect Affect: Constricted (labile, agitated, histrionic) - Speech Speech: Appropriate - Formal Thought Process Formal Thought Process: Delusions, Paranoia, Loosening of associations - Suicidal Ideation Suicidal Ideation: No - Homicidal Ideation Homicidal Ideation: No Goal/Treatment Plan - Goal/Treatment Plan Need for Continued Stay: Remain at risks for inpatient hospitalization, Severe depression anxiety, Discharge may exacerbated symptoms, Severe functional impairment Progress Toward Problem(s) and Goals/Treatment Plan: group, milieu and supportive tx (as tolerated) Cogentin 1 mg twice a day for EPS Prozac 30 mg daily for depression and anxiety ativan 2mg po tid for anxiety and akathesia seroquel 100mg bid and 200mg po hs for psychosis Twila Blancotenna was provided to patient on 09/08/18 Haldol Benadryl and Ativan as needed for agitation ECT might be helpful, at the same time patient lacks capacity to make decision about this procedure and now,, patient does not have power of title attorney SW consultation for discharge plan and social issues Family involvement, pt wanted her to participate in her care family meeting took place today 09/19/18, discussed clozaril, risk/benefits and alternatives discussed, will repeat CBC with differential, resume clozaril Follow up on labs Will monitor closely Pt was educated about risk/benefits and alternatives of medications, coping strategies (safety plan, suicide prevention), relapse prevention, importance of follow up with psychiatrist and therapist, stay away from drugs/alcohol/smoking Estimated Date of D/C: 10/03/18
[2018-09-29 19:25] LABS: BASO # 0.02 K/mm3 (0.0-2.0); BASO % 0.4 % (0.0-3.0); EOS # 0.1 (0.0-0.7); EOS % 1.9 % (1.5-5.0); GRAN # 1.9 (1.4-6.5); GRAN % 39.9 % (50.0-68.0); HEMOGLOBIN 12.3 g/dL (12.0-16.0); MEAN CELL VOLUME 88.5 fl (80.0-105.0); MEAN CORPUSCULAR HEMOGLOBIN 28.3 pg (25.0-35.0); MEAN PLATELET VOLUME 10.7 fl (7.0-11.0); MONO # 0.8 (0.1-0.6); MONO % 15.8 % (1.0-6.0); RBC 4.34 10^6/uL (3.5-6.1); RED CELL DISTRIBUTION WIDTH 16.7 % (11.5-14.5); WHITE BLOOD COUNT 4.8 10^3/uL (4.5-11.0)
[2018-09-29] MEDS: DiphenhydrAMINE 50 mg/ml Inj IM PRN (21:20)
--- NOTE | 2018-09-30 02:28 | PN ---
DATE: 09/29/2018 SUBJECTIVE: The patient is seen today. She is in dinning room. She is calm, but her thoughts are disorganized. No agitations. No physical distress. PHYSICAL EXAMINATION: VITAL SIGNS: Temperature is 97.3, heart rate is 102, blood pressure 126/107, respirations 16. HEAD AND NECK: Normal. No JVD. No thyromegaly. CHEST: Clear bilateral. CARDIAC: First sound and second sounds are normal. ABDOMEN: Soft, nontender. Obese. EXTREMITIES: No edema except right upper extremity lymphedema. NEUROLOGIC: Normal. IMPRESSION AND PLAN: 1. Schizoaffective disorder. Seems disorganized thoughts. Continue current therapy. She is getting Ambien, Ativan, and Seroquel, and also Prozac. Continue current therapy plus Haldol as needed 5 mg every 6 hours. 2. The patient has hypothyroidism. Continue levothyroxine. 3. Renal insufficiency, stable. 4. History of urinary tract infection, resolved. Last BUN 14, creatinine 1.1, stable. Continue current therapy. Igor Ca MD
--- NOTE | 2018-09-30 09:10 | PCM.BM ---
<Evie Rodriguez Y - Last Filed: 09/30/18 09:10> Treatment Plan Problems - Problems identified on initial assessmt DELUSIONS Date Initiated: 09/12/18 (NEEDS TO PUNISH HERSELF ) Time Initiated: 16:27 Assessment reference: HP, NA, Other Status: Active THOUGHT PROCESS ALTERATION Date Initiated: 09/12/18 (COPROPHAGIA) Time Initiated: 16:28 Assessment reference: HP, NA Status: Active ALTERATION IN EMOTIONAL STATUS Date Initiated: 09/12/18 Time Initiated: 16:29 Assessment reference: HP, Other Status: Active Treatment assets and liabiliti Patient Assests: adapts well, good support system, strong justin Patient Liabilities: medical problems, other (CHRONOC CHARACTER OF THE PROBLEM ) - Milieu Protocol Maintain good personal hygiene: daily Encourage regular showers, daily Remind patient to perform daily oral care, daily Assist patient to perform ADL's Maintain personal safety: daily Educate patient to report safety concerns to staff, daily Monitor environment for contraband/sharps Medication safety: Monitor for expected outcome, potential side effects: daily, Assess barriers to learning: daily, Assess readiness for medication education: daily Milieu Narrative: group, milieu and supportive tx (as tolerated) Cogentin 1 mg twice a day for EPS Prozac 30 mg daily for depression and anxiety ativan 2mg po tid for anxiety and akathesia seroquel 100mg bid and 200mg po hs for psychosis Abilify Maintenna was provided to patient on 09/08/18 Haldol Benadryl and Ativan as needed for agitation ECT might be helpful, at the same time patient lacks capacity to make decision about this procedure and now,, patient does not have power of assistant printer floor covering SW consultation for discharge plan and social issues Family involvement, pt wanted her to participate in her care family meeting took place today 09/19/18, discussed clozaril, risk/benefits and alternatives discussed, will repeat CBC with differential, resume clozaril Follow up on labs Will monitor closely Pt was educated about risk/benefits and alternatives of medications, coping strategies (safety plan, suicide prevention), relapse prevention, importance of follow up with psychiatrist and therapist, stay away from drugs/alcohol/smoking Family Contact Family involvement: Family/SO is involved - Outside Agency [facility] Care involvment: Information-sharing Agency contact name: [facility] Agency contact number: [phone] [facility] Care involent: Information-sharing Agency contact name: [facility] contact number: [phone] Discharge/Continuing Care - Education Needs Education Needs: Patient Medication, Patient Diagnosis/Disease Process, Patient Placement options, Patient Community resources, Patient Activities of Daily Living, Patient Health Practices/Safety, Patient Personal Hygiene/Grooming, Patient Aftercare Safety Plan - Discharge Discharge Criteria: Tolerates medication w/o severe side effects, Free of Suicidal thoughts, Normal sleep pattern, Other Discharge to:: Home - Treatment Team Participation Patient/Family/SO Statement: group, milieu and supportive tx (as tolerated) Cogentin 1 mg twice a day for EPS Prozac 30 mg daily for depression and anxiety ativan 2mg po tid for anxiety and akathesia seroquel 100mg bid and 200mg po hs for psychosis Twila Blancotenna was provided to patient on 09/08/18 Haldol Benadryl and Ativan as needed for agitation ECT might be helpful, at the same time patient lacks capacity to make decision about this procedure and now,, patient does not have power of assistant printer floor covering SW consultation for discharge plan and social issues Family involvement, pt wanted her to participate in her care family meeting took place today 09/19/18, discussed clozaril, risk/benefits and alternatives discussed, will repeat CBC with differential, resume clozaril Follow up on labs Will monitor closely Pt was educated about risk/benefits and alternatives of medications, coping strategies (safety plan, suicide prevention), relapse prevention, importance of follow up with psychiatrist and therapist, stay away from drugs/alcohol/smoking Treatment Plan Review - Problem DELUSIONS Time Initiated: 16:27 THOUGHT PROCESS ALTERATION Time Initiated: 16:28 ALTERATION IN EMOTIONAL STATUS Time Initiated: 16:29 <Carolyn Ross - Last Filed: 09/30/18 14:26> - Diagnosis (1) Schizoaffective disorder Status: Acute Interventions: group, milieu and supportive tx Seroquel is titrating up for disorganization, delusions, orthodoxy preoccupation Prozac 40 mg daily for depression and anxiety Ativan 0.5 mg po AMHS started for anxiety Abilifclyde Maintenna was provided to patient on 09/08/18 Haldol 3 mg + Ativan 1 mg q6 prn: agitation, will c/w 1:1 ECT offered, but pt lacks capacity to consent for procedure possible POA but pt lacks capacity to do so
[2018-09-30] MEDS: Levothyroxine 150 MCG TAB PO SCH (09:30)
[2018-09-30] MEDS: Pantoprazole 40 mg EC Tab PO SCH (09:32)
[2018-09-30] MEDS: Magnesium Oxide 400 mg Tab UD PO SCH ×3 (09:32→17:57)
[2018-09-30] MEDS: Bacitracin Ointment 30 GM TUBE TOP SCH ×2 (09:34→17:58)
[2018-09-30] MEDS: Enoxaparin 40 mg Syringe SC SCH (09:34)
[2018-09-30] MEDS: DiphenhydrAMINE 50 mg/ml Inj IM PRN (10:12)
[2018-09-30] MEDS ORDERED: OLANZapine 5 mg Disintegrating Tab PO SCH (13:30)
[2018-09-30] MEDS ORDERED: OLANZapine 5 mg Disintegrating Tab PO PRN (13:34)
--- NOTE | 2018-09-30 14:42 | PCM.PYCHPN ---
Psychiatric Progress Note - Psychiatric Progress Note Patient seen today, length of contact: 30 min Patient Chief Complaint: "God bless you, I am preying about you..., but kitchen is not clean at all" Problems Identified/Issues Discussed: this telegraphic typewriter operator attempted to discuss Suicide/ homicide prevention, past psychiatric h/o, current psychiatric symptoms, medical problems, risk/benefits and alternatives of medications, medications compliance, coping strategies, substance abuse h/o, relapse prevention, importance of follow up with psychiatrist and therapist, discharge plan. Medical Problems: pt was dehydrated dysphagia is better UTI, on antibiotics Diagnostic Results: 09/14/18 09:10 09/15/18 08:00 Lab Results 09/15/18 08:00: Sodium 140, Potassium 4.0, Chloride 102, Carbon Dioxide 28, Anion Gap 14, BUN 15, Creatinine 1.2, Est GFR ( Amer) 58, Est GFR (Non-Af Amer) 48, Random Glucose 97, Calcium 9.8 09/14/18 17:40: Urine Color Yellow, Urine Appearance Sl cloudy, Urine pH 6.0, Ur Specific [place] 1.010, Urine Protein Negative, Urine Glucose (UA) Negative, Urine Ketones Negative, Urine Blood Small H, Urine Nitrate Positive H, Urine Bilirubin Negative, Urine Urobilinogen 0.2, Ur Leukocyte Esterase Small H, Urine RBC 5 - 10, Urine WBC 20 - 25, Ur Epithelial Cells 10 - 12, Urine Bacteria Many 09/14/18 09:10: RPR Nonreactive 09/14/18 09:10: TSH 3rd Generation 5.59 H 09/14/18 09:10: Sodium 140, Potassium 4.0, Chloride 104, Carbon Dioxide 21, Anio n Gap 18, BUN 15, Creatinine 1.6 H, Est GFR ( Amer) 42, Est GFR (Non-Af Amer) 35, Random Glucose 85, Calcium 10.0, Phosphorus 2.8, Magnesium 1.6 L, Total Bilirubin 0.5, AST 89 H D, ALT 57 H, Alkaline Phosphatase 88, Total Protein 8.0, Albumin 4.4, Globulin 3.6, Albumin/Globulin Ratio 1.2, Tri glycerides 102, Cholesterol 234 H, LDL Cholesterol Direct 155 H, HDL Cholesterol 60 09/14/18 09:10: WBC 4.7 D, RBC 4.39, Hgb 12.4, Hct 37.8, MCV 86.1, MCH 28.2, MCHC 32.8, RDW 16.4 H, Plt Count 360, MPV 9.4, Gran % 50.8, Lymph % (Auto) 34.7, [place] % (Auto) 13.4 H, Eos % (Auto) 0.9 L, Baso % (Auto) 0.2, Gran # 2.39, Lymph # (Auto) 1.6, [place] # (Auto) 0.6, Eos # (Auto) 0.0, Baso # (Auto) 0.01 Microbiology 09/14/18 17:40 Urine Urine Culture - Preliminary Gram Negative [facility] Laboratory Results - last 24 hr 09/19/18 09:55 WBC 4.5 RBC 4.35 Hgb 12.2 Hct 38.3 MCV 88.0 MCH 28.0 MCHC 31.9 RDW 16.6 H Plt Count 318 MPV 9.6 Gran % 54.3 Lymph % (Auto) 30.0 [place] % (Auto) 14.8 H Eos % (Auto) 0.7 L Baso % (Auto) 0.2 Gran # 2.43 Lymph # (Auto) 1.3 [place] # (Auto) 0.7 H Eos # (Auto) 0.0 Baso # (Auto) 0.01 Abnormal Lab Results 09/22/18 09/22/18 07:30 07:30 WBC 3.4 L D RBC 4.34 Hgb 12.2 Hct 37.4 MCV 86.2 MCH 28.1 MCHC 32.6 RDW 16.5 H Plt Count 373 MPV 9.7 Sodium 141 Potassium 5.0 Chloride 107 Carbon Dioxide 25 Anion Gap 14 BUN 18 Creatinine 1.5 H Est GFR ( Amer) 45 Est GFR (Non-Af Amer) 37 Random Glucose 98 Calcium 10.2 Laboratory Results - last 72 hr 09/25/18 14:47 POC Glucose (mg/dL) 94 Vital Signs Temp Pulse Resp BP Pulse Ox 09/27/18 16:00 52 L 108/81 09/27/18 08:40 84 122/67 09/27/18 07:00 97.3 F L 84 18 122/67 09/26/18 08:04 121 H 136/114 H 09/26/18 07:26 98.2 F 54 L 22 136/114 H 09/25/18 09:08 80 124/70 09/24/18 16:00 93 H 112/74 09/24/18 09:17 97/50 L 09/24/18 07:20 97.1 F L 82 16 97/50 L 09/24/18 07:18 97.1 F L 82 20 97/50 L 09/23/18 16:00 86 110/67 09/23/18 06:49 97.7 F 77 20 114/69 09/22/18 16:00 83 103/57 L 09/22/18 12:26 97 H 110/72 09/21/18 10:21 90 116/71 09/21/18 10:15 98.4 F 90 20 116/71 99 09/20/18 15:45 100 H 95/70 L 09/20/18 10:04 93 H 146/96 H 09/20/18 06:48 98.1 F 79 16 98/60 L 09/19/18 16:00 60 116/88 09/19/18 07:28 97.3 F L 91 H 20 115/75 09/17/18 15:00 73 H 128/106 H 09/17/18 09:30 68 116/62 09/17/18 07:25 97.1 F L 80 18 92/58 L 09/16/18 16:00 102 H 120/81 09/16/18 09:47 104 H 124/99 H 09/16/18 07:17 98.0 F 87 18 98/59 L 09/15/18 09:07 103 H 106/70 09/15/18 07:00 97.8 F 105 H 19 86/60 L 09/14/18 16:28 90 139/118 H 09/14/18 07:00 97.9 F 60 17 115/72 09/13/18 08:30 114 H 20 129/100 H 09/13/18 07:00 98.5 F 55 L 22 169/114 H 09/13/18 06:50 55 L 169/114 H 09/12/18 16:11 97.2 F L 80 20 114/64 09/12/18 15:39 20 Abnormal Lab Results 09/29/18 19:14 WBC 4.8 RBC 4.34 Hgb 12.3 Hct 38.4 MCV 88.5 MCH 28.3 MCHC 32.0 RDW 16.7 H Plt Count 261 MPV 10.7 Gran % 39.9 L Lymph % (Auto) 42.0 H [place] % (Auto) 15.8 H Eos % (Auto) 1.9 Baso % (Auto) 0.4 Gran # 1.90 Lymph # (Auto) 2.0 [place] # (Auto) 0.8 H Eos # (Auto) 0.1 Baso # (Auto) 0.02 DSM 5 Symptoms Update: Patient is a 48-year-old Citizen Of [place] female with a psychiatric history of Schizoaffective disorder, multiple prior psychiatric admissions both in [place] and the [place]~ most recently hospitalized at [facility] x6 months ago, who was transferred from the medical floor after being treated from 09/10/18-09/12/18 for dysphagia. Pt was presented with depression, disorganization, paranoia, church preoccupation as well as bizarre behavior. On the medical floor patient required 1:1 because she was caught drinking her urine out of the toilet. Patient was trying to punish herself because she didn't deserve to live. Patient attends outpatient psychiatric treatment of [facility]. Her most recent follow up was on September 08, 2018. Patient has been compliant with Abilify 10 mg daily, Prozac 10 mg daily Seroquel 100 mg BID as well as Abilify Maintenna last injected September 08, 2018. Prozac was increased to 40 mg daily and Seroquel was increased to 100 mg po daily, 50 mg po q3pm and 200 mg HS on the medical floor. pt was seen at the treatment team meeting, utilized [employer] translation system for interpretation #[id number], pt presented to be delusional, disorganized, pt was answering incoherently on questions, for example when this telegraphic typewriter operator asked if she knows where she is pt said "I am sorry that my brother and his left to [place]", pt then went tangents about the market that she wants to buy tomato, pt also tried to pour some water from portable [employer] computer system, thinking it is a faucet. This telegraphic typewriter operator tried to explain ECT procedure as well as POA. pt replied "do whatever you wish", then pt started to prey and said "I wish all of you to be happy and healthy, I am preying for you". then pt started to telegraphic typewriter operator her name pt wrote ....but then started to draw crescents. this telegraphic typewriter operator had prolonged conversation with today as well as pt's . will run some tests to r/o delirium, pt's agreed with the plan to adjust seroquel. considering the fact pt had ECT in the past, most likely pt knows what is this procedure about, pt was educated about Clozaril again, pt said "whatever you wish", this telegraphic typewriter operator had prolonged conversation with pt's , CBC with differential stat, pt was already registered at [facility], if pt will be not improving within couple of days, will start clozaril. Pt might benefit from ECT because pt responded well back in [place], but now pt lacks capacity to sign consent for treatment. Diagnostic Results: Schizoaffective Disorder r/o delirium care of this pt took more than 45min of this telegraphic typewriter operator time Medication Change: Yes (seroquel increased) Medical Record Reviewed: Yes Consults ordered or reviewed: patient was seen by medical team as well as nephrology team Mental Status Examination - Cognitive Function Orientation: Place Memory: Impaired Attention: Poor Concentration: Poor Association: Loose Fund of Knowledge: Poor - Mood Mood: Depressed ("I do not want to go to hell"), Anxious - Affect Affect: Constricted (labile, agitated, histrionic) - Speech Speech: Appropriate - Formal Thought Process Formal Thought Process: Delusions, Paranoia, Loosening of associations - Suicidal Ideation Suicidal Ideation: No - Homicidal Ideation Homicidal Ideation: No Goal/Treatment Plan - Goal/Treatment Plan Need for Continued Stay: Remain at risks for inpatient hospitalization, Severe depression anxiety, Discharge may exacerbated symptoms, Severe functional impairment Progress Toward Problem(s) and Goals/Treatment Plan: group, milieu and supportive tx (as tolerated) Cogentin 1 mg twice a day for EPS Prozac 0 mg daily for depression and anxiety ativan 2mg po tid for anxiety and akathesia seroquel 200mg bid and 200mg po hs for psychosis Abiliclaire Maintenna was provided to patient on 09/08/18 Haldol Benadryl and Ativan as needed for agitation ECT might be helpful, at the same time patient lacks capacity to make decision about this procedure and now,, patient does not have power of deputy attorney general SW consultation for discharge plan and social issues Family involvement, pt wanted her to participate in her care family meeting took place today 09/19/18, discussed clozaril, risk/benefits and alternatives discussed, will repeat CBC with differential, resume clozaril Follow up on labs Will monitor closely Pt was educated about risk/benefits and alternatives of medications, coping strategies (safety plan, suicide prevention), relapse prevention, importance of follow up with psychiatrist and therapist, stay away from drugs/alcohol/smoking Estimated Date of D/C: 10/03/18
[2018-10-01] MEDS: Levothyroxine 150 MCG TAB PO SCH (07:18)
[2018-10-01] MEDS: Pantoprazole 40 mg EC Tab PO SCH (07:18)
[2018-10-01 08:04] LABS: HEMOGLOBIN 12.2 g/dL (12.0-16.0); MEAN CELL VOLUME 88.4 fl (80.0-105.0); MEAN CORPUSCULAR HEMOGLOBIN 27.8 pg (25.0-35.0); MEAN CORPUSCULAR HGB CONC 31.4 g/dl (31.0-37.0); MEAN PLATELET VOLUME 9.9 fl (7.0-11.0); RBC 4.39 10^6/uL (3.5-6.1); RED CELL DISTRIBUTION WIDTH 16.7 % (11.5-14.5); WHITE BLOOD COUNT 3.2 10^3/uL (4.5-11.0)
[2018-10-01 08:17] LABS: BLOOD UREA NITROGEN 16 mg/dL (7-21); CALCIUM 9.5 mg/dL (8.4-10.5); GFR NON-AFRICAN AMERICAN 53
[2018-10-01] MEDS: Enoxaparin 40 mg Syringe SC SCH (08:17)
[2018-10-01] MEDS: Magnesium Oxide 400 mg Tab UD PO SCH (08:18)
[2018-10-01 08:29] LABS: T4 8.4 ug/dL (5.5-11.0)
[2018-10-01] MEDS: Bacitracin Ointment 30 GM TUBE TOP SCH (09:12)
[2018-10-01] MEDS: Cefpodoxime (Vantin) 200 mg Tab PO SCH (10:02)
--- NOTE | 2018-10-01 13:14 | PN ---
DATE: 09/30/2018 SUBJECTIVE: Patient is in psych floor. She is walking around. She is kind of confused about where we are. She mentioned that we are in a different place, and they are going to kill us and roldan us and the building is going to be exploded, and same time she knows we are in a daytime, she recognizes me, periods of confusions plus her disorganized thinking. She denied any abdominal pain, nausea, vomiting or diarrhea. PHYSICAL EXAMINATION: VITAL SIGNS: Temperature 97.9, heart rate 75, blood pressure 116/79, respirations 20. HEAD AND NECK: Normal. No JVD. No thyromegaly. CHEST: Clear bilaterally. CARDIAC: First sound and second sound are normal. ABDOMEN: Soft, nontender. EXTREMITIES: No edema. NEUROLOGIC: Normal. LABORATORY DATA: cultures, try to get and collect samples, unclear could not get any labs. Last labs are white count 4.8, hemoglobin 12.3, hematocrit 38.4, platelets 261. Chemistry; last laboratory sodium 140, potassium 3.9, BUN 14, creatinine 1.1, blood sugar 114. Also, tried to get a urine sample again, but difficult. IMPRESSION AND PLAN: This is probably more psych than any organic disease. She has more psychiatric illness, patient has schizoaffective disorder. She has disorganized thoughts and jumping from one idea to the other, and that would be consistent with schizophrenia, and she feels like people are going to roldan us, they are going to kill us. She hears people talk, and they talk about her, so we will continue antipsychotics for this time and regarding her affective disorder, she does have depression, crying. She has been currently on Prozac. Questionable about ECT. We will discuss with the psychiatrist. Her can make decision about her. She did mention that the can take care of that, but we will discuss with the psychiatrist. CURRENT MEDICATIONS: She is on Ambien at night for sleep, Ativan 2 mg p.o. twice a day, she is also on Benadryl 50 mg p.r.n., Haldol p.r.n. 5 mg IV q. 6h. p.r.n. She is on Inderal 10 mg daily, Neurontin 300 mg p.o. daily. Seroquel 200 at night and 100 twice a day, which has been increased to 200 twice a day recently. Synthroid is 150. Tylenol and Zyprexa were added to her regimen of medications. Olanzapine 5 mg p.o. daily. IMPRESSION AND PLAN: 1. Schizoaffective disorder. We will continue psych therapy. Discussed with Dr. Leon, she will increase her dose of antipsychotics including Seroquel. I noted Zyprexa was added plus continue Ativan, Haldol, and Prozac. She seems somehow less agitated with current regimen, although her thoughts are still psychotic and disorganized in consistence, was more schizophrenia. Continue current therapy. We will discuss further with the specialist. 2. History of urinary tract infection, try to collect urine to see if the patient still has some other physical problems that contribute to her psychiatric illness. We will give a trial of Vantin for like a week while she is there to treat any underlying urine infection, which she only thinks she had. We will repeat lab in the morning including CBC and chemistry, and we will follow up. 3. Hypothyroidism. We will repeat TSH, patient is on Synthroid, and we will follow up clinically. The patient has been psychotic on TSH of 5 and above, so she has psychiatric illness and depression of untreated thyroid more than active thyroid on higher doses and hyperthyroidism-induced mental illness. That is not case here, so we will continue monitor her thyroid. Continue her current dose, we will increase this slightly. Her vitals are stable. She is not tachycardic at this time, and we will follow up clinically. Igor Ca MD
--- NOTE | 2018-10-01 15:57 | PCM.PYCHPN ---
Psychiatric Progress Note - Psychiatric Progress Note Patient seen today, length of contact: 30 min Patient Chief Complaint: "I am in heaven" Problems Identified/Issues Discussed: this press writer attempted to discuss Suicide/ homicide prevention, past psychiatric h/o, current psychiatric symptoms, medical problems, risk/benefits and alternatives of medications, medications compliance, coping strategies, substance abuse h/o, relapse prevention, importance of follow up with p sychiatrist and therapist, discharge plan. Medical Problems: pt was dehydrated dysphagia is better UTI, on antibiotics Diagnostic Results: 09/14/18 09:10 09/15/18 08:00 Lab Results 09/15/18 08:00: Sodium 140, Potassium 4.0, Chloride 102, Carbon Dioxide 28, Anion Gap 14, BUN 15, Creatinine 1.2, Est GFR ( Amer) 58, Est GFR (Non-Af Amer) 48, Random Glucose 97, Calcium 9.8 09/14/18 17:40: Urine Color Yellow, Urine Appearance Sl cloudy, Urine pH 6.0, Ur Specific [place] 1.010, Urine Protein Negative, Urine Glucose (UA) Negative, Urine Ketones Negative, Urine Blood Small H, Urine Nitrate Positive H, Urine Bilirubin Negative, Urine Urobilinogen 0.2, Ur Leukocyte Esterase Small H, Urine RBC 5 - 10, Urine WBC 20 - 25, Ur Epithelial Cells 10 - 12, Urine Bacteria Many 09/14/18 09:10: RPR Nonreactive 09/14/18 09:10: TSH 3rd Generation 5.59 H 09/14/18 09:10: Sodium 140, Potassium 4.0, Chloride 104, Carbon Dioxide 21, Anion Gap 18, BUN 15, Creatinine 1.6 H, Est GFR ( Amer) 42, Est GFR (Non- Af Amer) 35, Random Glucose 85, Calcium 10.0, Phosphorus 2.8, Magnesium 1.6 L, Total Bilirubin 0.5, AST 89 H D, ALT 57 H, Alkaline Phosphatase 88, Total Protein 8.0, Albumin 4.4, Globulin 3.6, Albumin/Globulin Ratio 1.2, Triglycerides 102, Cholesterol 234 H, LDL Cholesterol Direct 155 H, HDL Cholesterol 60 09/14/18 09:10: WBC 4.7 D, RBC 4.39, Hgb 12.4, Hct 37.8, MCV 86.1, MCH 28.2, MCHC 32.8, RDW 16.4 H, Plt Count 360, MPV 9.4, Gran % 50.8, Lymph % (Auto) 34.7, [place] % (Auto) 13.4 H, Eos % (Auto) 0.9 L, Baso % (Auto) 0.2, Gran # 2.39, Lymph # (Auto) 1.6, [place] # (Auto) 0.6, Eos # (Auto) 0.0, Baso # (Auto) 0.01 Microbiology 09/14/18 17:40 Urine Urine Culture - Preliminary Gram Negative [facility] Laboratory Results - last 24 hr 09/19/18 09:55 WBC 4.5 RBC 4.35 Hgb 12.2 Hct 38.3 MCV 88.0 MCH 28.0 MCHC 31.9 RDW 16.6 H Plt Count 318 MPV 9.6 Gran % 54.3 Lymph % (Auto) 30.0 [place] % (Auto) 14.8 H Eos % (Auto) 0.7 L Baso % (Auto) 0.2 Gran # 2.43 Lymph # (Auto) 1.3 Karnes # (Auto) 0.7 H Eos # (Auto) 0.0 Baso # (Auto) 0.01 Abnormal Lab Results 09/22/18 09/22/18 07:30 07:30 WBC 3.4 L D RBC 4.34 Hgb 12.2 Hct 37.4 MCV 86.2 MCH 28.1 MCHC 32.6 RDW 16.5 H Plt Count 373 MPV 9.7 Sodium 141 Potassium 5.0 Chloride 107 Carbon Dioxide 25 Anion Gap 14 BUN 18 Creatinine 1.5 H Est GFR ( Amer) 45 Est GFR (Non-Af Amer) 37 Random Glucose 98 Calcium 10.2 Laboratory Results - last 72 hr 09/25/18 14:47 POC Glucose (mg/dL) 94 Vital Signs Temp Pulse Resp BP Pulse Ox 09/27/18 16:00 52 L 108/81 09/27/18 08:40 84 122/67 09/27/18 07:00 97.3 F L 84 18 122/67 09/26/18 08:04 121 H 136/114 H 09/26/18 07:26 98.2 F 54 L 22 136/114 H 09/25/18 09:08 80 124/70 09/24/18 16:00 93 H 112/74 09/24/18 09:17 97/50 L 09/24/18 07:20 97.1 F L 82 16 97/50 L 09/24/18 07:18 97.1 F L 82 20 97/50 L 09/23/18 16:00 86 110/67 09/23/18 06:49 97.7 F 77 20 114/69 09/22/18 16:00 83 103/57 L 09/22/18 12:26 97 H 110/72 09/21/18 10:21 90 116/71 09/21/18 10:15 98.4 F 90 20 116/71 99 09/20/18 15:45 100 H 95/70 L 09/20/18 10:04 93 H 146/96 H 09/20/18 06:48 98.1 F 79 16 98/60 L 09/19/18 16:00 60 116/88 09/19/18 07:28 97.3 F L 91 H 20 115/75 09/17/18 15:00 73 H 128/106 H 09/17/18 09:30 68 116/62 09/17/18 07:25 97.1 F L 80 18 92/58 L 09/16/18 16:00 102 H 120/81 09/16/18 09:47 104 H 124/99 H 09/16/18 07:17 98.0 F 87 18 98/59 L 09/15/18 09:07 103 H 106/70 09/15/18 07:00 97.8 F 105 H 19 86/60 L 09/14/18 16:28 90 139/118 H 09/14/18 07:00 97.9 F 60 17 115/72 09/13/18 08:30 114 H 20 129/100 H 09/13/18 07:00 98.5 F 55 L 22 169/114 H 09/13/18 06:50 55 L 169/114 H 09/12/18 16:11 97.2 F L 80 20 114/64 09/12/18 15:39 20 Abnormal Lab Results 09/29/18 19:14 WBC 4.8 RBC 4.34 Hgb 12.3 Hct 38.4 MCV 88.5 MCH 28.3 MCHC 32.0 RDW 16.7 H Plt Count 261 MPV 10.7 Gran % 39.9 L Lymph % (Auto) 42.0 H [place] % (Auto) 15.8 H Eos % (Auto) 1.9 Baso % (Auto) 0.4 Gran # 1.90 Lymph # (Auto) 2.0 [place] # (Auto) 0.8 H Eos # (Auto) 0.1 Baso # (Auto) 0.02 Abnormal Lab Results 10/01/18 10/01/18 10/01/18 07:50 07:50 07:50 WBC 3.2 L D RBC 4.39 Hgb 12.2 Hct 38.8 MCV 88.4 MCH 27.8 MCHC 31.4 RDW 16.7 H Plt Count 280 MPV 9.9 Sodium 141 Potassium 4.2 Chloride 108 H Carbon Dioxide 28 Anion Gap 10 BUN 16 Creatinine 1.1 Est GFR ( Amer) > 60 Est GFR (Non-Af Amer) 53 Random Glucose 98 Calcium 9.5 Thyroxine (T4) 8.4 TSH 3rd Generation 1.86 Cortisol AM Sample 10/01/18 07:50 WBC RBC Hgb Hct MCV MCH MCHC RDW Plt Count MPV Sodium Potassium Chloride Carbon Dioxide Anion Gap BUN Creatinine Est GFR ( Amer) Est GFR (Non-Af Amer) Random Glucose Calcium Thyroxine (T4) TSH 3rd Generation Cortisol AM Sample 19.5 DSM 5 Symptoms Update: Patient is a 48-year-old [place] female with a psychiatric history of Schizoaffective disorder, multiple prior psychiatric admissions both in [place] and the [place]~ most recently hospitalized at [facility] x6 months ago, who was transferred from the medical floor after being treated from 09/10/18-09/12/18 for dysphagia. Pt was presented with depression, disorganization, paranoia, mandaeism preoccupation as well as bizarre behavior. On the medical floor patient required 1:1 because she was caught drinking her urine out of the toilet. Patient was trying to punish herself because she didn't deserve to live. Patient attends outpatient psychiatric treatment of [facility]. Her most recent follow up was on September 08, 2018. Patient has been compliant with Abilify 10 mg daily, Prozac 10 mg daily Seroquel 100 mg BID as well as Abilify Maintenna last injected September 08, 2018. Prozac was increased to 40 mg daily and Seroquel was increased to 100 mg po daily, 50 mg po q3pm and 200 mg HS on the medical floor. pt was seen in the hallway together with , utilized PMD for Chinese translation pt is emotional, disorganized, ttrying to pick something from the floor, later on pushed 1:1 sitter. patient is religiously preoccupied, more improvements with presentation, discussed with patient yesterday, will start Clozaril today. considering the fact pt had ECT in the past, most likely pt knows what is this procedure about, pt was educated about Clozaril again, pt said "whatever you wish", this press writer had prolonged conversation with pt's , CBC with differential stat, pt was already registered at [facility], if pt will be not improving within couple of days, will start clozaril. Pt might benefit from ECT because pt responded well back in [place], but now pt lacks capacity to sign consent for treatment. Diagnostic Results: Schizoaffective Disorder r/o delirium care of this pt took more than 45min of this press writer time Medication Change: Yes (Clozaril started) Medical Record Reviewed: Yes Consults ordered or reviewed: patient was seen by medical team as well as nephrology team Mental Status Examination - Cognitive Function Orientation: Place Memory: Impaired Attention: Poor Concentration: Poor Association: Loose Fund of Knowledge: Poor - Mood Mood: Depressed ("I do not want to go to hell"), Anxious - Affect Affect: Constricted (labile, agitated, histrionic) - Speech Speech: Appropriate - Formal Thought Process Formal Thought Process: Delusions, Paranoia, Loosening of associations - Suicidal Ideation Suicidal Ideation: No - Homicidal Ideation Homicidal Ideation: No Goal/Treatment Plan - Goal/Treatment Plan Need for Continued Stay: Remain at risks for inpatient hospitalization, Severe depression anxiety, Discharge may exacerbated symptoms, Severe functional impairment Progress Toward Problem(s) and Goals/Treatment Plan: group, milieu and supportive tx (as tolerated) Clozaril 12.5 mgDaily, Will titrate accordingly Cogentin 1 mg twice a day for EPS Prozac 30 mg daily for depression and anxiety ativan 2mg po tid for anxiety and akathesia seroquel 200mg bid and 200mg po hs for psychosis Twila Hartman was provided to patient on 09/08/18 Haldol Benadryl and Ativan as needed for agitation ECT might be helpful, at the same time patient lacks capacity to make decision about this procedure and now,, patient does not have power of consumer attorney SW consultation for discharge plan and social issues Family involvement, pt wanted her to participate in her care family meeting took place today 09/19/18 CBC with differential wnl, resume clozaril Follow up on labs Will monitor closely Pt was educated about risk/benefits and alternatives of medications, coping strategies (safety plan, suicide prevention), relapse prevention, importance of follow up with psychiatrist and therapist, stay away from drugs/alcohol/smoking Estimated Date of D/C: 10/03/18
--- NOTE | 2018-10-02 02:20 | PN ---
DATE: 10/01/2018 SUBJECTIVE: The patient was interviewed with the psychiatrist next to me, Dr. Leon. The patient has disorganized thoughts. She is doing bizarre movement, unexplainable. Sometimes she does not know where she is, and she mentions different foods irrelevant to what we are talking about. She said her sister, Nadia, she is not here. She, different, getting stuff on the floor, irrelevant to what we talk and she put it in her pocket, and there was nothing in the floor or nothing to put in the pocket. She has no pocket. The patient, psychiatric rawls, still very sick, and probably had discussion with Dr. Leon for further treatment including ECT cannot be done as the patient could not get any consent, plus may be [facility] may take the patient over there. However, they do not have any ECT. The patient is otherwise physically stable. PHYSICAL EXAMINATION: VITAL SIGNS: Temperature 97, heart rate 87, blood pressure 101/72, and respirations 20. HEAD AND NECK: Normal. No JVD. No thyromegaly. CHEST: Clear bilateral. CARDIAC: First sound and second sound are normal. ABDOMEN: Soft and nontender. EXTREMITIES: No edema except right arm from lymphedema from breast cancer surgery. NEUROLOGIC: Normal. LABORATORY DATA: White count 3.2, hemoglobin 12.2, hematocrit 38.8, platelets 280. The patient had a chemistry which shows sodium 141, potassium 4.2, chloride 108, bicarb 28, BUN 16, creatinine 1.1, glucose 98, and phosphorus 9.5. The patient also had a TSH repeat which is 1.86. Her cortisol level also came back very good 19.5, within normal range. The patient has normal calcium 9.5. IMPRESSION AND PLAN: 1. Schizoaffective disorder. Still has significant psychiatric illness, manifestations. We will continue the Seroquel high dose. Clozaril has been recommended by the psychiatrist that needs to be monitored white count every week; however, the compliance is a big issue. ECT was one of the options. We will see how the patient do. We will continue current psych treatment. 2. Possible urinary tract infections. I put the patient on Vantin. I could not get a urine sample, and we will give her maybe five to seven days of Vantin which has been sensitive to it before. However, the patient is not vomiting. She does not complain of any pain. However, she is not reliable and poor historical and poor communications. 3. Hypothyroidism. Thyroid stimulating hormone is normal. Continue levothyroxine. 4. Anxiety, depression, agitations. Continue symptomatic treatment. Ativan, Haldol, and Prozac. Continue current treatment. 5. Continue gastrointestinal and deep venous thrombosis prophylaxis. Igor Ca MD
[2018-10-02] MEDS: DiphenhydrAMINE 50 mg/ml Inj IM PRN (04:08)
[2018-10-02 05:25] LABS: PH,URINE 6.5 (4.7-8.0); URINE BILIRUBIN NEGATIVE (NEGATIVE); URINE BLOOD MODERATE (NEGATIVE); URINE GLUCOSE (UA) NEGATIVE (NEGATIVE); URINE LEUKOCYTE ESTERASE SMALL Leu/uL (NEGATIVE); URINE PROTEIN NEGATIVE mg/dL (<30 mg/dL); URINE UROBILINOGEN 0.2 E.U./dL (<1 E.U./dL)
[2018-10-02 05:28] LABS: URINE APPEARANCE CLEAR (CLEAR); URINE COLOR YELLOW (YELLOW)
[2018-10-02 05:38] LABS: URINE RBC 0 - 2 /hpf (0-2)
[2018-10-02 05:39] LABS: URINE BACTERIA MANY (NEG)
[2018-10-02] MEDS: Levothyroxine 150 MCG TAB PO SCH (07:46)
[2018-10-02] MEDS: Cefpodoxime (Vantin) 200 mg Tab PO SCH ×2 (07:46→18:43)
[2018-10-02] MEDS: Enoxaparin 40 mg Syringe SC SCH (07:47)
[2018-10-02] MEDS: Pantoprazole 40 mg EC Tab PO SCH (07:48)
[2018-10-02] MEDS: Magnesium Oxide 400 mg Tab UD PO SCH ×3 (07:48→16:17)
[2018-10-02] MEDS: Bacitracin Ointment 30 GM TUBE TOP SCH ×2 (12:03→17:20)
--- NOTE | 2018-10-02 14:02 | PCM.PYCHPN ---
Psychiatric Progress Note - Psychiatric Progress Note Patient seen today, length of contact: 30 min Patient Chief Complaint: "I am afraid animal like looking man, I cannot pronounce his name, he acts like an animal, I'm so scared, God help me, God help me, I don't want to " Problems Identified/Issues Discussed: this automobile and property underwriter discuss Suicide/ homicide prevention, past psychiatric h/o, current psychiatric symptoms, medical problems, risk/benefits and alternatives of medi cations, medications compliance, coping strategies, substance abuse h/o, relapse prevention, importance of follow up with psychiatrist and therapist, discharge plan. Medical Problems: pt was dehydrated dysphagia is better UTI, patient completed course of antibiotics urine analysis showed leukocyte esterase again on 10/01/2018, awaiting for urine culture Diagnostic Results: 09/14/18 09:10 09/15/18 08:00 Lab Results 09/15/18 08:00: Sodium 140, Potassium 4.0, Chloride 102, Carbon Dioxide 28, Anion Gap 14, BUN 15, Creatinine 1.2, Est GFR ( Amer) 58, Est GFR (Non-Af Amer) 48, Random Glucose 97, Calcium 9.8 09/14/18 17:40: Urine Color Yellow, Urine Appearance Sl cloudy, Urine pH 6.0, Ur Specific [place] 1.010, Urine Protein Negative, Urine Glucose (UA) Negative, Urine Ketones Negative, Urine Blood Small H, Urine Nitrate Positive H, Urine Bilirubin Negative, Urine Urobilinogen 0.2, Ur Leukocyte Esterase Small H, Urine RBC 5 - 10, Urine WBC 20 - 25, Ur Epithelial Cells 10 - 12, Urine Bacteria Many 09/14/18 09:10: RPR Nonreactive 09/14/18 09:10: TSH 3rd Generation 5.59 H 09/14/18 09:10: Sodium 140, Potassium 4.0, Chloride 104, Carbon Dioxide 21, Anion Gap 18, BUN 15, Creatinine 1.6 H, Est GFR ( Amer) 42, Est GFR (Non- Af Amer) 35, Random Glucose 85, Calcium 10.0, Phosphorus 2.8, Magnesium 1.6 L, Total Bilirubin 0.5, AST 89 H D, ALT 57 H, Alkaline Phosphatase 88, Total Protein 8.0, Albumin 4.4, Globulin 3.6, Albumin/Globulin Ratio 1.2, Triglycerides 102, Cholesterol 234 H, LDL Cholesterol Direct 155 H, HDL Cho lesterol 60 09/14/18 09:10: WBC 4.7 D, RBC 4.39, Hgb 12.4, Hct 37.8, MCV 86.1, MCH 28.2, MCHC 32.8, RDW 16.4 H, Plt Count 360, MPV 9.4, Gran % 50.8, Lymph % (Auto) 34.7, [place] % (Auto) 13.4 H, Eos % (Auto) 0.9 L, Baso % (Auto) 0.2, Gran # 2.39, Lymph # (Auto) 1.6, [place] # (Auto) 0.6, Eos # (Auto) 0.0, Baso # (Auto) 0.01 Microbiology 09/14/18 17:40 Urine Urine Culture - Preliminary Gram Negative [facility] Laboratory Results - last 24 hr 09/19/18 09:55 WBC 4.5 RBC 4.35 Hgb 12.2 Hct 38.3 MCV 88.0 MCH 28.0 MCHC 31.9 RDW 16.6 H Plt Count 318 MPV 9.6 Gran % 54.3 Lymph % (Auto) 30.0 [place] % (Auto) 14.8 H Eos % (Auto) 0.7 L Baso % (Auto) 0.2 Gran # 2.43 Lymph # (Auto) 1.3 [place] # (Auto) 0.7 H Eos # (Auto) 0.0 Baso # (Auto) 0.01 Abnormal Lab Results 09/22/18 09/22/18 07:30 07:30 WBC 3.4 L D RBC 4.34 Hgb 12.2 Hct 37.4 MCV 86.2 MCH 28.1 MCHC 32.6 RDW 16.5 H Plt Count 373 MPV 9.7 Sodium 141 Potassium 5.0 Chloride 107 Carbon Dioxide 25 Anion Gap 14 BUN 18 Creatinine 1.5 H Est GFR ( Amer) 45 Est GFR (Non-Af Amer) 37 Random Glucose 98 Calcium 10.2 Laboratory Results - last 72 hr 09/25/18 14:47 POC Glucose (mg/dL) 94 Vital Signs Temp Pulse Resp BP Pulse Ox 09/27/18 16:00 52 L 108/81 09/27/18 08:40 84 122/67 09/27/18 07:00 97.3 F L 84 18 122/67 09/26/18 08:04 121 H 136/114 H 09/26/18 07:26 98.2 F 54 L 22 136/114 H 09/25/18 09:08 80 124/70 09/24/18 16:00 93 H 112/74 09/24/18 09:17 97/50 L 09/24/18 07:20 97.1 F L 82 16 97/50 L 09/24/18 07:18 97.1 F L 82 20 97/50 L 09/23/18 16:00 86 110/67 09/23/18 06:49 97.7 F 77 20 114/69 09/22/18 16:00 83 103/57 L 09/22/18 12:26 97 H 110/72 09/21/18 10:21 90 116/71 09/21/18 10:15 98.4 F 90 20 116/71 99 09/20/18 15:45 100 H 95/70 L 09/20/18 10:04 93 H 146/96 H 09/20/18 06:48 98.1 F 79 16 98/60 L 09/19/18 16:00 60 116/88 09/19/18 07:28 97.3 F L 91 H 20 115/75 09/17/18 15:00 73 H 128/106 H 09/17/18 09:30 68 116/62 09/17/18 07:25 97.1 F L 80 18 92/58 L 09/16/18 16:00 102 H 120/81 09/16/18 09:47 104 H 124/99 H 09/16/18 07:17 98.0 F 87 18 98/59 L 09/15/18 09:07 103 H 106/70 09/15/18 07:00 97.8 F 105 H 19 86/60 L 09/14/18 16:28 90 139/118 H 09/14/18 07:00 97.9 F 60 17 115/72 09/13/18 08:30 114 H 20 129/100 H 09/13/18 07:00 98.5 F 55 L 22 169/114 H 09/13/18 06:50 55 L 169/114 H 09/12/18 16:11 97.2 F L 80 20 114/64 09/12/18 15:39 20 Abnormal Lab Results 09/29/18 19:14 WBC 4.8 RBC 4.34 Hgb 12.3 Hct 38.4 MCV 88.5 MCH 28.3 MCHC 32.0 RDW 16.7 H Plt Count 261 MPV 10.7 Gran % 39.9 L Lymph % (Auto) 42.0 H [place] % (Auto) 15.8 H Eos % (Auto) 1.9 Baso % (Auto) 0.4 Gran # 1.90 Lymph # (Auto) 2.0 Chambers # (Auto) 0.8 H Eos # (Auto) 0.1 Baso # (Auto) 0.02 Abnormal Lab Results 10/01/18 10/01/18 10/01/18 07:50 07:50 07:50 WBC 3.2 L D RBC 4.39 Hgb 12.2 Hct 38.8 MCV 88.4 MCH 27.8 MCHC 31.4 RDW 16.7 H Plt Count 280 MPV 9.9 Sodium 141 Potassium 4.2 Chloride 108 H Carbon Dioxide 28 Anion Gap 10 BUN 16 Creatinine 1.1 Est GFR ( Amer) > 60 Est GFR (Non-Af Amer) 53 Random Glucose 98 Calcium 9.5 Thyroxine (T4) 8.4 TSH 3rd Generation 1.86 Cortisol AM Sample 10/01/18 07:50 WBC RBC Hgb Hct MCV MCH MCHC RDW Plt Count MPV Sodium Potassium Chloride Carbon Dioxide Anion Gap BUN Creatinine Est GFR ( Amer) Est GFR (Non-Af Amer) Random Glucose Calcium Thyroxine (T4) TSH 3rd Generation Cortisol AM Sample 19.5 DSM 5 Symptoms Update: Patient is a 48-year-old [place] female with a psychiatric history of Schizoaffective disorder, multiple prior psychiatric admissions both in [place] and the [place]~ most recently hospitalized at [facility] x6 months ago, who was transferred from the medical floor after being treated from 09/10/18-09/12/18 for dysphagia. Pt was presented with depression, disorganization, paranoia, oriental orthodox preoccupation as well as bizarre behavior. On the medical floor patient required 1:1 because she was caught drinking her urine out of the toilet. Patient was trying to punish herself because she didn't deserve to live. Patient attends outpatient psychiatric treatment of [facility]. Her most recent follow up was on September 08, 2018. Patient has been compliant with Abilify 10 mg daily, Prozac 10 mg daily Seroquel 100 mg BID as well as Abilify Maintenna last injected September 08, 2018. pt was seen in treatment team meeting room,, utilized translation system for interpretation, George ID # [id number]. pt said that she is scared of "him", pt said that she cannot "even pronounce his name, he is animal looking, act like animal, I am scared, I don't want to ", pt then said that she wants to bless staff and this automobile and property underwriter and wish everyone "all the best", then pt said "My God saved me". pt still requires to be on 1:1 for agitated and psychotic behavior. pt pushed 1:1 sitter yesterday and today, impulses are unpredictable. later on pt became agitated, was screaming on top of her lungs, was not able to calm down, needed to be medicated with IM of Haldol 5mg and Ativan 2mg at quiet room, pt still labile, impulses unpredictable. clozaril was started 10/01/18, today increased. discussed with , pt was resumed on antibiotics for possible UTI. considering the fact pt had ECT in the past, most likely pt knows what is this procedure about, pt was educated about Clozaril again, pt said "whatever you wish", this automobile and property underwriter had prolonged conversation with pt's , was willing pt to have ECT, but he is not her POA, now pt does not have a capacity to point anyone to be her POA, as well as for ECT. CBC with differential are WNL, [facility]. Pt might benefit from ECT because pt responded well back in [place], but now pt lacks capacity to sign consent for treatment. Diagnostic Results: Schizoaffective Disorder r/o delirium care of this pt took more than 45min of this automobile and property underwriter time Medication Change: Yes (clozaril increased, ativan d/c, klonopin started, thorazin prn, haldol d/c) Medical Record Reviewed: Yes Consults ordered or reviewed: patient was seen by medical team as well as nephrology team see notes for more detailed information Mental Status Examination - Cognitive Function Orientation: Place Memory: Impaired Attention: Poor Concentration: Poor Association: Loose Fund of Knowledge: Poor - Mood Mood: Depressed ("I am afraid"), Anxious - Affect Affect: Constricted (labile, agitated, histrionic) - Speech Speech: Appropriate - Formal Thought Process Formal Thought Process: Hallucinations, Delusions, Paranoia, Loosening of associations - Suicidal Ideation Suicidal Ideation: No - Homicidal Ideation Homicidal Ideation: No Goal/Treatment Plan - Goal/Treatment Plan Need for Continued Stay: Remain at risks for inpatient hospitalization, Severe depression anxiety, Discharge may exacerbated symptoms, Severe functional impairment Progress Toward Problem(s) and Goals/Treatment Plan: group, milieu and supportive tx (as tolerated) Clozaril 25mgDaily, Will titrate accordingly Cogentin d/c Prozac 40 mg daily for depression and anxiety ativan dc klonopin 2mg po bid and hs for anxiety and akathesia seroquel 200mg bid with plan to wean it off Abilify Maintenna was provided to patient on 09/08/18 Haldol d/c as PRN will start THorazine 50mg po and IM prn ECT might be helpful, at the same time patient lacks capacity to make decision about this procedure and now,, patient does not have power of criminal attorney pt is on Vantin for UTI (started 10/01/18) SW consultation for discharge plan and social issues Family involvement, pt wanted her to participate in her care family meeting took place today 09/19/18 CBC with differential wnl Follow up on labs Will monitor closely Pt was educated about risk/benefits and alternatives of medications, coping strategies (safety plan, suicide prevention), relapse prevention, importance of follow up with psychiatrist and therapist, stay away from drugs/alcohol/smoking Estimated Date of D/C: 10/10/18
[2018-10-03] MEDS: Pantoprazole 40 mg EC Tab PO SCH (07:14)
[2018-10-03] MEDS: Cefpodoxime (Vantin) 200 mg Tab PO SCH ×2 (07:14→17:30)
[2018-10-03] MEDS: Levothyroxine 150 MCG TAB PO SCH (07:14)
[2018-10-03] MEDS: Magnesium Oxide 400 mg Tab UD PO SCH ×2 (08:04→16:06)
[2018-10-03] MEDS: Bacitracin Ointment 30 GM TUBE TOP SCH (09:56)
--- NOTE | 2018-10-03 12:54 | PCM.PYCHPN ---
Psychiatric Progress Note - Psychiatric Progress Note Patient seen today, length of contact: 45min Patient Chief Complaint: "I am afraid for my , where I am? where [place]?, where is [place]? Where is [place]?" Problems Identified/Issues Discussed: this technical proposal writer discuss Suicide/ homicide prevention, past psychiatric h/o, current psychiatric symptoms, medical problems, risk/benefits and alternatives of medications, medications compliance, coping strategies, substance abuse h/o, relapse prevention, importance of follow up with psychiatrist and therapist, discharge plan. Medical Problems: pt was dehydrated dysphagia is better UTI, patient completed course of antibiotics urine analysis showed leukocyte esterase again on 10/01/2018, awaiting for urine culture Diagnostic Results: 09/14/18 09:10 09/15/18 08:00 Lab Results 09/15/18 08:00: Sodium 140, Potassium 4.0, Chloride 102, Carbon Dioxide 28, Ani on Gap 14, BUN 15, Creatinine 1.2, Est GFR ( Amer) 58, Est GFR (Non-Af Amer) 48, Random Glucose 97, Calcium 9.8 09/14/18 17:40: Urine Color Yellow, Urine Appearance Sl cloudy, Urine pH 6.0, Ur Specific [place] 1.010, Urine Protein Negative, Urine Glucose (UA) Negative, Urine Ketones Negative, Urine Blood Small H, Urine Nitrate Positive H, Urine Bilirubin Negative, Urine Urobilinogen 0.2, Ur Leukocyte Esterase Small H, Urine RBC 5 - 10, Urine WBC 20 - 25, Ur Epithelial Cells 10 - 12, Urine Bacteria Many 09/14/18 09:10: RPR Nonreactive 09/14/18 09:10: TSH 3rd Generation 5.59 H 09/14/18 09:10: Sodium 140, Potassium 4.0, Chloride 104, Carbon Dioxide 21, Anion Gap 18, BUN 15, Creatinine 1.6 H, Est GFR ( Amer) 42, Est GFR (Non- Af Amer) 35, Random Glucose 85, Calcium 10.0, Phosphorus 2.8, Magnesium 1.6 L, Total Bilirubin 0.5, AST 89 H D, ALT 57 H, Alkaline Phosphatase 88, Total Protein 8.0, Albumin 4.4, Globulin 3.6, Albumin/Globulin Ratio 1.2, Triglycerides 102, Cholesterol 234 H, LDL Cholesterol Direct 155 H, HDL Cholesterol 60 09/14/18 09:10: WBC 4.7 D, RBC 4.39, Hgb 12.4, Hct 37.8, MCV 86.1, MCH 28.2, MCHC 32.8, RDW 16.4 H, Plt Count 360, MPV 9.4, Gran % 50.8, Lymph % (Auto) 34.7, [place] % (Auto) 13.4 H, Eos % (Auto) 0.9 L, Baso % (Auto) 0.2, Gran # 2.39, Lymph # (Auto) 1.6, [place] # (Auto) 0.6, Eos # (Auto) 0.0, Baso # (Auto) 0.01 Microbiology 09/14/18 17:40 Urine Urine Culture - Preliminary Gram Negative [facility] Laboratory Results - last 24 hr 09/19/18 09:55 WBC 4.5 RBC 4.35 Hgb 12.2 Hct 38.3 MCV 88.0 MCH 28.0 MCHC 31.9 RDW 16.6 H Plt Count 318 MPV 9.6 Gran % 54.3 Lymph % (Auto) 30.0 [place] % (Auto) 14.8 H Eos % (Auto) 0.7 L Baso % (Auto) 0.2 Gran # 2.43 Lymph # (Auto) 1.3 [place] # (Auto) 0.7 H Eos # (Auto) 0.0 Baso # (Auto) 0.01 Abnormal Lab Results 09/22/18 09/22/18 07:30 07:30 WBC 3.4 L D RBC 4.34 Hgb 12.2 Hct 37.4 MCV 86.2 MCH 28.1 MCHC 32.6 RDW 16.5 H Plt Count 373 MPV 9.7 Sodium 141 Potassium 5.0 Chloride 107 Carbon Dioxide 25 Anion Gap 14 BUN 18 Creatinine 1.5 H Est GFR ( Amer) 45 Est GFR (Non-Af Amer) 37 Random Glucose 98 Calcium 10.2 Laboratory Results - last 72 hr 09/25/18 14:47 POC Glucose (mg/dL) 94 Vital Signs Temp Pulse Resp BP Pulse Ox 09/27/18 16:00 52 L 108/81 09/27/18 08:40 84 122/67 09/27/18 07:00 97.3 F L 84 18 122/67 09/26/18 08:04 121 H 136/114 H 09/26/18 07:26 98.2 F 54 L 22 136/114 H 09/25/18 09:08 80 124/70 09/24/18 16:00 93 H 112/74 09/24/18 09:17 97/50 L 09/24/18 07:20 97.1 F L 82 16 97/50 L 09/24/18 07:18 97.1 F L 82 20 97/50 L 09/23/18 16:00 86 110/67 09/23/18 06:49 97.7 F 77 20 114/69 09/22/18 16:00 83 103/57 L 09/22/18 12:26 97 H 110/72 09/21/18 10:21 90 116/71 09/21/18 10:15 98.4 F 90 20 116/71 99 09/20/18 15:45 100 H 95/70 L 09/20/18 10:04 93 H 146/96 H 09/20/18 06:48 98.1 F 79 16 98/60 L 09/19/18 16:00 60 116/88 09/19/18 07:28 97.3 F L 91 H 20 115/75 09/17/18 15:00 73 H 128/106 H 09/17/18 09:30 68 116/62 09/17/18 07:25 97.1 F L 80 18 92/58 L 09/16/18 16:00 102 H 120/81 09/16/18 09:47 104 H 124/99 H 09/16/18 07:17 98.0 F 87 18 98/59 L 09/15/18 09:07 103 H 106/70 09/15/18 07:00 97.8 F 105 H 19 86/60 L 09/14/18 16:28 90 139/118 H 09/14/18 07:00 97.9 F 60 17 115/72 09/13/18 08:30 114 H 20 129/100 H 09/13/18 07:00 98.5 F 55 L 22 169/114 H 09/13/18 06:50 55 L 169/114 H 09/12/18 16:11 97.2 F L 80 20 114/64 09/12/18 15:39 20 Abnormal Lab Results 09/29/18 19:14 WBC 4.8 RBC 4.34 Hgb 12.3 Hct 38.4 MCV 88.5 MCH 28.3 MCHC 32.0 RDW 16.7 H Plt Count 261 MPV 10.7 Gran % 39.9 L Lymph % (Auto) 42.0 H [place] % (Auto) 15.8 H Eos % (Auto) 1.9 Baso % (Auto) 0.4 Gran # 1.90 Lymph # (Auto) 2.0 [place] # (Auto) 0.8 H Eos # (Auto) 0.1 Baso # (Auto) 0.02 Abnormal Lab Results 10/01/18 10/01/18 10/01/18 07:50 07:50 07:50 WBC 3.2 L D RBC 4.39 Hgb 12.2 Hct 38.8 MCV 88.4 MCH 27.8 MCHC 31.4 RDW 16.7 H Plt Count 280 MPV 9.9 Sodium 141 Potassium 4.2 Chloride 108 H Carbon Dioxide 28 Anion Gap 10 BUN 16 Creatinine 1.1 Est GFR ( Amer) > 60 Est GFR (Non-Af Amer) 53 Random Glucose 98 Calcium 9.5 Thyroxine (T4) 8.4 TSH 3rd Generation 1.86 Cortisol AM Sample 10/01/18 07:50 WBC RBC Hgb Hct MCV MCH MCHC RDW Plt Count MPV Sodium Potassium Chloride Carbon Dioxide Anion Gap BUN Creatinine Est GFR ( Amer) Est GFR (Non-Af Amer) Random Glucose Calcium Thyroxine (T4) TSH 3rd Generation Cortisol AM Sample 19.5 Temp Pulse Resp BP Pulse Ox 97.9 F 113 H 20 105/72 99 10/03/18 07:17 10/03/18 09:46 10/03/18 07:17 10/03/18 09:46 09/21/18 10:15 DSM 5 Symptoms Update: Patient is a 48-year-old [place]isian female with a psychiatric history of Schizoaffective disorder, multiple prior psychiatric admissions both in [place] and the [place]~ most recently hospitalized at [facility] x6 months ago, who was transferred from the medical floor after being treated from 09/10/18-09/12/18 for dysphagia. Pt was presented with depression, disorganization, paranoia, sikhism preoccupation as well as bizarre behavior. On the medical floor patient required 1:1 because she was caught drinking her urine out of the toilet. Patient was trying to punish herself because she didn't deserve to live. Patient attends outpatient psychiatric treatment of [facility]. Her most recent follow up was on September 08, 2018. Patient has been compliant with Abilify 10 mg daily, Prozac 10 mg daily Seroquel 100 mg BID as well as Abilify Maintenna last injected September 08, 2018. pt was seen in treatment team meeting room,, utilized translation system for interpretation, Reyesgiovanny ID # [id number]."I am afraid for my , where I am? where [place]?, where is [place]? Where is [place]?", pt still requires to be on 1:1 for agitated and psychotic behavior. pt pushed 1:1 sitter 10/01/18 and 10/02/18, impulses are unpredictable. 10/02/18 pt needed to be medicated IM Haldol and ativan. clozaril was started 10/01/18, today pt is on 25mg po bid. 10/02/18 discussed with , pt was resumed on antibiotics for possible UTI. considering the fact pt had ECT in the past, most likely pt knows what is this procedure about, pt was educated about Clozaril again, pt said "whatever you wish", this technical proposal writer had prolonged conversation with pt's , was willing pt to have ECT, but he is not her POA, now pt does not have a capacity to point anyone to be her POA, as well as for ECT. Pt might benefit from ECT because pt responded well back in [place], but now pt lacks capacity to sign consent for treatment. Diagnostic Results: Schizoaffective Disorder r/o delirium care of this pt took more than 45min of this technical proposal writer time Medication Change: Yes (clozaril increased) Medical Record Reviewed: Yes Consults ordered or reviewed: patient was seen by medical team as well as nephrology team see notes for more detailed information Mental Status Examination - Cognitive Function Orientation: Place Memory: Impaired Attention: Poor Concentration: Poor Association: Loose Fund of Knowledge: Poor - Mood Mood: Depressed ("I am afraid"), Anxious - Affect Affect: Constricted (labile, agitated, histrionic) - Speech Speech: Appropriate - Formal Thought Process Formal Thought Process: Hallucinations, Delusions, Paranoia, Loosening of associations - Suicidal Ideation Suicidal Ideation: No - Homicidal Ideation Homicidal Ideation: No Goal/Treatment Plan - Goal/Treatment Plan Need for Continued Stay: Remain at risks for inpatient hospitalization, Severe depression anxiety, Discharge may exacerbated symptoms, Severe functional impairment Progress Toward Problem(s) and Goals/Treatment Plan: group, milieu and supportive tx (as tolerated) Clozaril 25mg bid, will titrate accordingly Cogentin d/c Prozac 40 mg daily for depression and anxiety ativan dc klonopin 2mg po bid and hs for anxiety and akathesia seroquel 200mg bid with plan to wean it off Abilify Maintenna was provided to patient on 09/08/18 Haldol d/c as PRN will start THorazine 50mg po and IM prn ECT might be helpful, at the same time patient lacks capacity to make decision about this procedure and now,, patient does not have power of ip attorney pt is on Vantin for UTI (started 10/01/18) SW consultation for discharge plan and social issues Family involvement, pt wanted her to participate in her care family meeting took place today 09/19/18 CBC with differential wnl Follow up on labs Will monitor closely Pt was educated about risk/benefits and alternatives of medications, coping strategies (safety plan, suicide prevention), relapse prevention, importance of follow up with psychiatrist and therapist, stay away from drugs/alcohol/smoking Estimated Date of D/C: 10/10/18
--- NOTE | 2018-10-03 13:39 | PN ---
DATE: 10/02/2018 SUBJECTIVE: The patient is still having bizarre behavior and disorganized thoughts in spite of medications. She is afebrile. PHYSICAL EXAMINATION: VITAL SIGNS: Temperature 97.9, heart rate 113, blood pressure 105/70, and respirations 20. NECK: Normal. No JVD. No thyromegaly. CHEST: Clear. CARDIAC: Bilateral cardiac first and second sound normal. ABDOMEN: Soft and nontender. EXTREMITIES: Normal. IMPRESSION AND PLAN: 1. Schizoaffective disorder, continue psychiatric evaluation and cyclic therapy. Patient may need the CT or be [facility] to [facility]. She is ____. 2. History of urinary tract infection. We are giving another course of Augmentin, could not get urine sample in here. 3. Hypothyroidism. Continue levothyroxine. We will followup clinically. 4. History of breast carcinoma, right upper extremity lymphedema. We will follow up that and get DrPamela ____ to follow up that and we will continue current therapy. 5. Patient has history of dysphagia seen by GI, ____ she is doing well. Continue current therapy. Continue p.o. fluids to avoid any dehydration and renal insufficiency. She will follow up with the psychiatrist. Igor Ca MD
[2018-10-04] MEDS: DiphenhydrAMINE 50 mg/ml Inj IM PRN ×2 (08:21→14:47)
[2018-10-04] MEDS: Pantoprazole 40 mg EC Tab PO SCH (09:23)
[2018-10-04] MEDS: Levothyroxine 150 MCG TAB PO SCH (09:23)
[2018-10-04] MEDS: Magnesium Oxide 400 mg Tab UD PO SCH ×2 (09:23→18:49)
[2018-10-04] MEDS: Bacitracin Ointment 30 GM TUBE TOP SCH ×3 (09:28→17:26)
--- NOTE | 2018-10-04 10:31 | PCM.PYCHPN ---
Psychiatric Progress Note - Psychiatric Progress Note Patient seen today, length of contact: 35min Problems Identified/Issues Discussed: History of Present Illness and Precipitating Events: Patient is a 48-year-old Colombian female with a psychiatric history of Schizoaffective disorder, multiple prior psychiatric admissions both in [place] and the [place]~ most recently hospitalized at [facility] x6 months ago, who was transferred from the medical floor yesterday after being treated from 09/10/18-09/12/18 for dysphagia. Patient was consulted by Dr. Ross on September 10 as well as this provider on September 11 and for symptoms of depression, disorganization, paranoia, rastafari preoccupation as well as bizarre behavior. On the medical floor patient required 1:1 because she was caught drinking her urine out of the toilet. Patient was trying to punish herself because she didn't deserve to live. Patient attends outpatient psychiatric treatment of [facility]. Her most recent follow up was on September 08, 2018. Patient has been compliant with Abilify 10 mg daily, Prozac 10 mg daily Seroquel 100 mg BID as well as Abilify Maintenna last injected September 08, 2018. Prozac was increased to 40 mg daily and Seroquel was increased to 100 mg po daily, 50 mg po q3pm and 200 mg HS on the medical floor. As noted above patient has been demonstrating delusions disorganization and bizarre behavior on the medical floor and continues to demonstrate these symptoms on the psychiatric unit--however her impulse control and intensity of psychosis are worse on the psychiatric unit. Patient is depressed, hopeless, helpless and has very low self-worth. She punishes herself both mentally and physically. She prays loudly and incessantly. She still needs to be repeatedly redirected from bowing to staff and kissing their shoes. Hysterically, patient blurts "I dont want to go to the fire! and "I want to go to heaven!" She remains quite unpredictable and impulsive. She can still be heard wailing throughout the hallway of the psychiatric unit. Patient does not appear to be any physical distress and denies having any new discomfort or pain however she does appear to be in significant emotional distress and has poor insight and judgement. PSYCHIATRIC HISTORY Patient is a poor historian cannot provide reliable information regarding her psychiatric history however prior notes indicate that she has been psychiatrically hospitalized both in [place] and in [place]. Her most recent hospitalization was at the [facility] approximately six months ago. She attends outpatient at [facility] in and reportedly compliant with following medications Abilify 10 mg daily, Prozac 10 mg daily Seroquel 100 mg BID as well as Abilify Maintenna (last injected September 08, 2018). Prozac was increased to 40 mg daily and Seroquel was increased to 100 mg po daily, 50 mg po q3pm and 200 mg HS on the medical floor. Patient has a tendency to become very religiously preoccupied, disorganized and bizarre during her decompensations. She has a history of eating her feces and drinking her urine as a form of self punishment during these episodes SOCIAL HISTORY Patient was born in [place]. Shes been for about 22 years. She has two adult daughters (though told staff one of her daughters is 12 yo) who live with her and her . Patient denies any drug or alcohol issues in her life. PROGRESS NOTE 10/04/18 I reviewed recent notes, patient is known to this provider from my follow up on the medical floor prior to her transfer to the psychiatric unit. Patient continues to be odd and disorganized with minimal improvement since transfer from medicine. She remains impulsive, requiring 1:1 and a lot of staff support to redirect her psychotic behaviors. Patient's sleep was poor last night It is still difficult for staff or this provider to sustain a meaningful interview with her. Her histrionic behaviors persist despite much education and reassurance. She comprehends Filipino however her responses still contain a mixture of Nepali and Filipino. Behavior is unpredictable. Diagnostic Results: Schizoaffective Disorder r/o delirium Medication Change: Yes (clozaril increased, seroquel decreased, started depakote) Medical Record Reviewed: Yes Mental Status Examination - Cognitive Function Orientation: Place Memory: Impaired Attention: Poor Concentration: Poor Association: Loose Fund of Knowledge: Poor - Mood Mood: Depressed ("I am afraid"), Anxious - Affect Affect: Constricted (labile, agitated, histrionic) - Speech Speech: Appropriate - Formal Thought Process Formal Thought Process: Hallucinations, Delusions, Paranoia, Loosening of associations - Suicidal Ideation Suicidal Ideation: No - Homicidal Ideation Homicidal Ideation: No Goal/Treatment Plan - Goal/Treatment Plan Need for Continued Stay: Remain at risks for inpatient hospitalization, Severe depression anxiety, Discharge may exacerbated symptoms, Severe functional impairment Progress Toward Problem(s) and Goals/Treatment Plan: * group, milieu and supportive tx (as tolerated) * vantin for UTI x 3 days course provided 09/15/18-09/18/18 AND restarted 10/01/18 for UTI. * Titrate clozaril as tolerated ~Clozaril 25 mg x1 10/03/18 ~Clozaril 25 mg po bid 10/04/18 *will monitor HR closely * Seroquel 200 mg AMHS for psychosis to 150 mg AMHS. Will c/w decrease as tolerated while clozaril is being titrated * Discussed with Dr. Ross, initiated Depakote 250 mg AMHS to help with lability and impulse control as well as sleep on the unit. * Neurontin 300 mg po daily * Prozac 40 mg daily for depression and anxiety * Klonopin 2 mg po bid & HS for anxiety and mood control * Abilify Maintenna was provided to patient on 09/08/18 will not continue. * Ambien 5 mg po HS prn: insomnia * Haldol and Ativan prns for agitation * Considering ECT treatment however patient lacks capacity to make this treatment decision at this time. * Vitals reviewed and noted below: Selected Entries 10/03/18 10/03/18 10/03/18 07:17 09:46 16:00 Temperature 97.9 F Pulse Rate 113 H 113 H 95 H Respiratory 20 Rate Blood Pressure 105/70 105/72 100/71 * Please refer to results from patient's physical exam/ROS/labs in progress notes from her recent admission to the medical floor from 09/10/18-09/12/18, as well as ER ROS and physical exam on 09/09/18 Of note: Code Jose Raul was called at 2:43 PM on because patient appeared to doze off while standing. As a result she fell and hit the ground. vital signs taken reads BP 111/70, P 81, R 20. Blood sugar 94 mgdl. Nursing sales representative supervisor made aware and patient was seen by Dr. Keenan PGY-2. Patient was escorted to ER for further stabilization. Patient was cleared in the ER to return to unit. ER findings noted below: 09/25/18 18:14 EKG: Sinus arrythmia at [address] elevations, nl intervals 09/25/18 18:49 EXAM: CT Cervical Spine Without IV contrast. IMPRESSION: No acute cervical spine abnormality. Electronically signed on Sep 25, 2018 6:45:56 PM EST by: Dmitriy Fall M.D., PREMA Certified By ABR & CBCCT Fellowship Trained MRI and CT Specialist CT Head without Intravenous Contrast. IMPRESSION: No acute intracranial abnormality Electronically signed on Sep 25, 2018 6:44:38 PM EST by: Dmitriy Fall M.D., PREMA Certified By ABR & CBCCT Fellowship Trained MRI and CT Specialist * Please refer to results from patient's physical exam/ROS/labs in progress notes from her recent admission to the medical floor from 09/10/18-09/12/18, as well as ER ROS and physical exam on 09/09/18 Of note: Code Star was called at 2:43 PM on because patient appeared to doze off while standing. As a result she fell and hit the ground. vital signs taken reads BP 111/70, P 81, R 20. Blood sugar 94 mgdl. Nursing sales representative supervisor made aware and patient was seen by Dr. Keenan PGY-2. Patient was escorted to ER for further stabilization. Patient was cleared in the ER to return to unit. ER findings noted below: 09/25/18 18:14 EKG: Sinus arrythmia at [address] elevations, nl intervals 09/25/18 18:49 EXAM: CT Cervical Spine Without IV contrast. IMPRESSION: No acute cervical spine abnormality. Electronically signed on Sep 25, 2018 6:45:56 PM EST by: Dmitriy Fall M.D., PREMA Certified By ABR & CBCCT Fellowship Trained MRI and CT Specialist CT Head without Intravenous Contrast. IMPRESSION: No acute intracranial abnormality Electronically signed on Sep 25, 2018 6:44:38 PM EST by: Dmitriy Fall M.D., PREMA Certified By ABR & CBCCT Fellowship Trained MRI and CT Specialist * Recent lab results noted below: Laboratory Results - last 24 hr 09/25/18 14:47 POC Glucose (mg/dL) 94 Laboratory Results - last 24 hr 09/24/18 09:35 Sodium 140 Potassium 3.9 Chloride 106 Carbon Dioxide 26 Anion Gap 11 BUN 14 Creatinine 1.1 Est GFR ( Amer) > 60 Est GFR (Non-Af Amer) 53 Random Glucose 113 H Calcium 9.3 * Prior weekend labs noted below: Laboratory Results - last 24 hr 09/14/18 09/14/18 09/14/18 09:10 09:10 09:10 WBC 4.7 D RBC 4.39 Hgb 12.4 Hct 37.8 MCV 86.1 MCH 28.2 MCHC 32.8 RDW 16.4 H Plt Count 360 MPV 9.4 Gran % 50.8 Lymph % (Auto) 34.7 [place] % (Auto) 13.4 H Eos % (Auto) 0.9 L Baso % (Auto) 0.2 Gran # 2.39 Lymph # (Auto) 1.6 [place] # (Auto) 0.6 Eos # (Auto) 0.0 Baso # (Auto) 0.01 Sodium 140 Potassium 4.0 Chloride 104 Carbon Dioxide 21 Anion Gap 18 BUN 15 Creatinine 1.6 H Est GFR ( Amer) 42 Est GFR (Non-Af Amer) 35 Random Glucose 85 Calcium 10.0 Phosphorus 2.8 Magnesium 1.6 L Total Bilirubin 0.5 AST 89 H D ALT 57 H Alkaline Phosphatase 88 Total Protein 8.0 Albumin 4.4 Globulin 3.6 Albumin/Globulin Ratio 1.2 Triglycerides 102 Cholesterol 234 H LDL Cholesterol Direct 155 H HDL Cholesterol 60 TSH 3rd Generation 5.59 H Estimated Date of D/C: 10/10/18
[2018-10-04] MEDS: Cefpodoxime (Vantin) 200 mg Tab PO SCH (10:37)
[2018-10-04] MEDS: Saliva Substitute 44.3 ML PO PRN (13:41)
[2018-10-04] MEDS ORDERED: Divalproex 250 mg DR (BID formulation) PO SCH (22:00)
[2018-10-05] MEDS: DiphenhydrAMINE 50 mg/ml Inj IM PRN ×3 (06:50→23:15)
[2018-10-05] MEDS: Divalproex 250 mg DR (BID formulation) PO ONE ×2 (07:29→08:08)
[2018-10-05] MEDS ORDERED: Divalproex 250 mg DR (BID formulation) PO SCH ×2 (08:00→22:00)
--- NOTE | 2018-10-05 09:27 | PCM.PYCHPN ---
Psychiatric Progress Note - Psychiatric Progress Note Patient seen today, length of contact: 40min Problems Identified/Issues Discussed: History of Present Illness and Precipitating Events: Patient is a 48-year-old Cym[place] female with a psychiatric history of Schizoaffective disorder, multiple prior psychiatric admissions both in [place] and the [place]~ most recently hospitalized at [facility] x6 months ago, who was transferred from the medical floor yesterday after being treated from 09/10/18-09/12/18 for dysphagia. Patient was consulted by Dr. Ross on September 10 as well as this provider on September 11 and for symptoms of depression, disorganization, paranoia, nondenominational preoccupation as well as bizarre behavior. On the medical floor patient required 1:1 because she was caught drinking her urine out of the toilet. Patient was trying to punish herself because she didn't deserve to live. Patient attends outpatient psychiatric treatment of [facility]. Her most recent follow up was on September 08, 2018. Patient has been compliant with Abilify 10 mg daily, Prozac 10 mg daily Seroquel 100 mg BID as well as Abilify Maintenna last injected September 08, 2018. Prozac was increased to 40 mg daily and Seroquel was increased to 100 mg po daily, 50 mg po q3pm and 200 mg HS on the medical floor. As noted above patient has been demonstrating delusions disorganization and bizarre behavior on the medical floor and continues to demonstrate these symptoms on the psychiatric unit--however her impulse control and intensity of psychosis are worse on the psychiatric unit. Patient is depressed, hopeless, helpless and has very low self-worth. She punishes herself both mentally and physically. She prays loudly and incessantly. She still needs to be repeatedly redirected from bowing to staff and kissing their shoes. Hysterically, patient blurts "I dont want to go to the fire! and "I want to go to heaven!" She remains quite unpredictable and impulsive. She can still be heard wailing throughout the hallway of the psychiatric unit. Patient does not appear to be any physical distress and denies having any new discomfort or pain however she does appear to be in significant emotional distress and has poor insight and judgement. PSYCHIATRIC HISTORY Patient is a poor historian cannot provide reliable information regarding her psychiatric history however prior notes indicate that she has been psychiatrically hospitalized both in [place] and in [place]. Her most recent hospitalization was at the [facility] approximately six months ago. She attends outpatient at [facility] in and reportedly compliant with following medications Abilify 10 mg daily, Prozac 10 mg daily Seroquel 100 mg BID as well as Abilify Maintenna (last injected September 08, 2018). Prozac was increased to 40 mg daily and Seroquel was increased to 100 mg po daily, 50 mg po q3pm and 200 mg HS on the medical floor. Patient has a tendency to become very religiously preoccupied, disorganized and bizarre during her decompensations. She has a history of eating her feces and drinking her urine as a form of self punishment during these episodes SOCIAL HISTORY Patient was born in [place]. Shes been for about 22 years. She has two adult daughters (though told staff one of her daughters is 12 yo) who live with her and her . Patient denies any drug or alcohol issues in her life. PROGRESS NOTE 10/05/18 I reviewed recent notes, patient is known to this provider from my follow up on the medical floor prior to her transfer to the psychiatric unit. Patient continues to be odd and disorganized with minimal improvement since transfer from medicine. She remains impulsive, requiring 1:1 and a lot of staff support to redirect her behaviors. Her disruptions appear both attention-seeking and psychotic in nature. It is still difficult for staff or this provider to sustain a meaningful interview with her--though there have been many attempts in both Japanese and her picayune language. Her histrionic behaviors persist despite much education and reassurance. She comprehends Japanese however her responses still contain a mixture of Kinyarwanda and Japanese. Behavior is unpredictable. Patient required two thorazine IM prns on Saturday because she was restless, agitated, yelling and unable to be verbally redirected. Patient needed 50 mg thorazine IM for agitation early this AM and staff have noticed that she has been cheeking her medications again. Diagnostic Results: Schizoaffective Disorder r/o delirium Medication Change: Yes (clozaril increased, seroquel decreased, started depakote) Medical Record Reviewed: Yes Mental Status Examination - Cognitive Function Orientation: Place Memory: Impaired Attention: Poor Concentration: Poor Association: Loose Fund of Knowledge: Poor - Mood Mood: Depressed ("I am afraid"), Anxious - Affect Affect: Constricted (labile, agitated, histrionic) - Speech Speech: Appropriate - Formal Thought Process Formal Thought Process: Hallucinations, Delusions, Paranoia, Loosening of associations - Suicidal Ideation Suicidal Ideation: No - Homicidal Ideation Homicidal Ideation: No Goal/Treatment Plan - Goal/Treatment Plan Need for Continued Stay: Remain at risks for inpatient hospitalization, Severe depression anxiety, Discharge may exacerbated symptoms, Severe functional impairment Progress Toward Problem(s) and Goals/Treatment Plan: * group, milieu and supportive tx (as tolerated) * vantin for UTI x 3 days course provided 09/15/18-09/18/18 AND 10/01/18- (*patient refused 10/04/18 dose). * Titrate clozaril as tolerated ~Clozaril 25 mg x1 10/03/18 ~Clozaril 25 mg po bid 10/04/18 ~Clozaril 25 mg po qAM and 50 mg po HS on 10/05/18 ~Clozaril 50 mg po qAM and 50 mg po HS on 10/06/18 *ordered ~will monitor HR closely * Seroquel 200 mg AMHS for psychosis to 150 mg AMHS on 10/04/18. Will c/w decrease as tolerated while clozaril is being titrated. * Will be as conservative as possible with antipsychotics to minimize patient's restlessness on the unit. * Depakene 250 mg po BID and 500 mg HS to help with lability and impulse control as well as sleep on the unit * Klonopin 2 mg po bid & HS for anxiety and mood control. Consider tapering as depakote becomes more effective to minimize risk of benzo delirium. * Neurontin 300 mg po daily * Prozac 40 mg daily for depression and anxiety * Abileanne Maintenna was provided to patient on 09/08/18 will not continue. * Ambien 5 mg po HS prn: insomnia * thorazine prns for agitation * Considered ECT treatment however patient lacks capacity to make this treatment decision at this time. * Vitals reviewed and noted below: Selected Entries 10/04/18 10/04/18 07:00 09:22 Temperature 97.5 F L Pulse Rate 80 80 Respiratory 18 Rate Blood Pressure 134/69 134/69 * Please refer to results from patient's physical exam/ROS/labs in progress notes from her recent admission to the medical floor from 09/10/18-09/12/18, as well as ER ROS and physical exam on 09/09/18 Of note: Alin Blunt was called at 2:43 PM on because patient appeared to doze off while standing. As a result she fell and hit the ground. vital signs taken reads BP 111/70, P 81, R 20. Blood sugar 94 mgdl. Nursing cooler service supervisor made aware and patient was seen by Dr. Keenan PGY-2. Patient was escorted to ER for further stabilization. Patient was cleared in the ER to return to unit. ER findings noted below: 09/25/18 18:14 EKG: Sinus arrythmia at [address] elevations, nl intervals 09/25/18 18:49 EXAM: CT Cervical Spine Without IV contrast. IMPRESSION: No acute cervical spine abnormality. Electronically signed on Sep 25, 2018 6:45:56 PM EST by: Dmitriy Fall M.D., PREMA Certified By ABR & CBCCT Fellowship Trained MRI and CT Specialist CT Head without Intravenous Contrast. IMPRESSION: No acute intracranial abnormality Electronically signed on Sep 25, 2018 6:44:38 PM EST by: Dmitriy Fall M.D., PREMA Certified By ABR & CBCCT Fellowship Trained MRI and CT Specialist * Recent lab results noted below: Laboratory Results - last 24 hr 09/25/18 14:47 POC Glucose (mg/dL) 94 Laboratory Results - last 24 hr 09/24/18 09:35 Sodium 140 Potassium 3.9 Chloride 106 Carbon Dioxide 26 Anion Gap 11 BUN 14 Creatinine 1.1 Est GFR ( Amer) > 60 Est GFR (Non-Af Amer) 53 Random Glucose 113 H Calcium 9.3 * Prior weekend labs noted below: Laboratory Results - last 24 hr 09/14/18 09/14/18 09/14/18 09:10 09:10 09:10 WBC 4.7 D RBC 4.39 Hgb 12.4 Hct 37.8 MCV 86.1 MCH 28.2 MCHC 32.8 RDW 16.4 H Plt Count 360 MPV 9.4 Gran % 50.8 Lymph % (Auto) 34.7 [place] % (Auto) 13.4 H Eos % (Auto) 0.9 L Baso % (Auto) 0.2 Gran # 2.39 Lymph # (Auto) 1.6 [place] # (Auto) 0.6 Eos # (Auto) 0.0 Baso # (Auto) 0.01 Sodium 140 Potassium 4.0 Chloride 104 Carbon Dioxide 21 Anion Gap 18 BUN 15 Creatinine 1.6 H Est GFR ( Amer) 42 Est GFR (Non-Af Amer) 35 Random Glucose 85 Calcium 10.0 Phosphorus 2.8 Magnesium 1.6 L Total Bilirubin 0.5 AST 89 H D ALT 57 H Alkaline Phosphatase 88 Total Protein 8.0 Albumin 4.4 Globulin 3.6 Albumin/Globulin Ratio 1.2 Triglycerides 102 Cholesterol 234 H LDL Cholesterol Direct 155 H HDL Cholesterol 60 TSH 3rd Generation 5.59 H Estimated Date of D/C: 10/10/18
[2018-10-05] MEDS: Levothyroxine 150 MCG TAB PO SCH (09:54)
[2018-10-05] MEDS: Magnesium Oxide 400 mg Tab UD PO SCH ×2 (09:55→17:36)
[2018-10-05] MEDS: Pantoprazole 40 mg EC Tab PO SCH (09:55)
[2018-10-05] MEDS: Bacitracin Ointment 30 GM TUBE TOP SCH ×2 (10:12→17:50)
[2018-10-05] MEDS ORDERED: Valproic Acid 250 mg/5 ml UD Cup PO SCH (13:00)
--- NOTE | 2018-10-05 16:40 | CP.PCM.PN ---
Subjective - Date & Time of Evaluation Date of Evaluation: 10/04/18 Time of Evaluation: 19:00 - Subjective Subjective: Pt given anti-psychotic for acute pyschotic episode; was banging her head on the hernandez ROS: unable to assess Objective - Vital Signs/Intake and Output Vital Signs (last 24 hours): Temp Pulse Resp BP Pulse Ox 97.5 F L 69 18 158/92 H 99 10/04/18 07:00 10/05/18 10:15 10/04/18 07:00 10/05/18 10:15 09/21/18 10:15 - Medications Medications: Current Medications Acetaminophen (Tylenol 325mg Tab) 650 mg PO Q6H PRN PRN Reason: Pain, moderate (4-7) Bacitracin (Bacitracin) 1 gm TOP BID DAT Last Admin: 10/05/18 10:12 Dose: 1 oin Chlorpromazine (Thorazine) 50 mg IM Q6H PRN; Protocol PRN Reason: Agitation Last Admin: 10/05/18 11:57 Dose: 50 mg Chlorpromazine (Thorazine) 50 mg PO Q6H PRN; Protocol PRN Reason: psychosis/agitation Last Admin: 10/03/18 03:24 Dose: 50 mg Clonazepam (Klonopin) 2 mg PO BID DAT; Protocol Last Admin: 10/05/18 09:53 Dose: 2 mg Clonazepam (Klonopin) 2 mg PO HS DAT; Protocol Last Admin: 10/05/18 04:40 Dose: 2 mg Clozapine (Clozaril) 50 mg PO HS DAT; Protocol Clozapine (Clozaril) 50 mg PO QAM DAT; Protocol Diphenhydramine HCl (Benadryl) 50 mg IM Q6H PRN PRN Reason: Anxiety Last Admin: 10/05/18 11:56 Dose: 50 mg Fluoxetine HCl (Prozac) 40 mg PO DAILY DAT Last Admin: 10/05/18 09:53 Dose: 40 mg Folic Acid (Folic Acid) 1 mg PO DAILY DAT Last Admin: 10/05/18 09:54 Dose: 1 mg Gabapentin (Neurontin) 300 mg PO DAILY DAT; Protocol Last Admin: 10/05/18 09:54 Dose: 300 mg Home Med (Home Med) 0.8 unit SC Q2W DAT Last Admin: 09/17/18 21:25 Dose: 0.8 unit Levothyroxine Sodium (Synthroid) 150 mcg PO 0600 [facility] Last Admin: 10/05/18 09:54 Dose: 150 mcg Lorazepam (Ativan) 2 mg IM Q6 PRN; Protocol PRN Reason: Agitation Last Admin: 10/05/18 06:51 Dose: 2 mg Lorazepam (Ativan) 2 mg PO Q6H PRN; Protocol PRN Reason: anxiety/agitation Last Admin: 10/04/18 14:53 Dose: 2 mg Magnesium Oxide (Mag-Ox) 400 mg PO BID [facility] Last Admin: 10/05/18 09:55 Dose: 400 mg Pantoprazole Sodium (Protonix Ec Tab) 40 mg PO 0600 [facility] Last Admin: 10/05/18 09:55 Dose: 40 mg Propranolol HCl (Inderal) 10 mg PO DAILY [facility] Last Admin: 10/05/18 10:15 Dose: 10 mg Quetiapine Fumarate (Seroquel) 150 mg PO AMHS [facility]; Protocol Last Admin: 10/05/18 11:20 Dose: 150 mg Saliva Substitute (Saliva Substitute) 0 ml PO TID PRN PRN Reason: Dry mouth Last Admin: 10/04/18 13:41 Dose: 1 ml Valproate Sodium (Depakene Oral Soln) 250 mg PO BID [facility] Valproate Sodium (Depakene Oral Soln) 500 mg PO HS [facility] Zolpidem Tartrate (Ambien) 5 mg PO HS PRN; Protocol PRN Reason: Insomnia Last Admin: 09/19/18 21:00 Dose: 5 mg - Labs Labs: 10/01/18 07:50 10/01/18 07:50 - Constitutional Appears: No Acute Distress, Other (sedated in bed) - Head Exam Head Exam: ATRAUMATIC, NORMAL INSPECTION, NORMOCEPHALIC - Respiratory Exam Respiratory Exam: absent: Accessory Muscle Use - Extremities Exam Extremities Exam: Full ROM, Normal Capillary Refill, Normal Inspection. absent: Joint Swelling, Pedal Edema - Skin Skin Exam: Dry, Intact, Normal Color, Warm Assessment and Plan - Assessment and Plan (Free Text) Assessment: Ms. Will is a 48 y/o with pmhx significant for a remote history ER/OR+/HER2 negative stage II-III breast cancer of right s/p mastectomy with persistent right arm lymphadenopathy who is currently admitted with psychosis in setting of known schizzoaffective d/o. Patient currently not on any medications for breast cancer. Primary team asked about humira? Will need to follow up with pcp b/c she is not perscribed humira from an oncology stand point. Syed Crisostomo MD Oncology Service
--- NOTE | 2018-10-05 16:41 | CP.PCM.PN ---
<Syed Crisostomo MD - Last Filed: 10/05/18 16:40> Subjective - Date & Time of Evaluation Date of Evaluation: 10/04/18 Time of Evaluation: 18:00 - Subjective Subjective: Patient still not at baseline but was able to communicate with patient today. Who requested for humira. She acknoweldges some discomfort at injection side from where she was given anti-pyschotic ROS: unable to further assess. Objective - Vital Signs/Intake and Output Vital Signs (last 24 hours): Temp Pulse Resp BP Pulse Ox 97.5 F L 96 H 18 129/81 99 10/04/18 07:00 10/05/18 16:35 10/04/18 07:00 10/05/18 16:35 09/21/18 10:15 - Medications Medications: Current Medications Acetaminophen (Tylenol 325mg Tab) 650 mg PO Q6H PRN PRN Reason: Pain, moderate (4-7) Bacitracin (Bacitracin) 1 gm TOP BID DAT Last Admin: 10/05/18 10:12 Dose: 1 oin Chlorpromazine (Thorazine) 50 mg IM Q6H PRN; Protocol PRN Reason: Agitation Last Admin: 10/05/18 11:57 Dose: 50 mg Chlorpromazine (Thorazine) 50 mg PO Q6H PRN; Protocol PRN Reason: psychosis/agitation Last Admin: 10/03/18 03:24 Dose: 50 mg Clonazepam (Klonopin) 2 mg PO BID DAT; Protocol Last Admin: 10/05/18 09:53 Dose: 2 mg Clonazepam (Klonopin) 2 mg PO HS DAT; Protocol Last Admin: 10/05/18 04:40 Dose: 2 mg Clozapine (Clozaril) 50 mg PO HS DAT; Protocol Clozapine (Clozaril) 50 mg PO QAM DAT; Protocol Diphenhydramine HCl (Benadryl) 50 mg IM Q6H PRN PRN Reason: Anxiety Last Admin: 10/05/18 11:56 Dose: 50 mg Fluoxetine HCl (Prozac) 40 mg PO DAILY DAT Last Admin: 10/05/18 09:53 Dose: 40 mg Folic Acid (Folic Acid) 1 mg PO DAILY DAT Last Admin: 10/05/18 09:54 Dose: 1 mg Gabapentin (Neurontin) 300 mg PO DAILY DAT; Protocol Last Admin: 10/05/18 09:54 Dose: 300 mg Home Med (Home Med) 0.8 unit SC Q2W [facility] Last Admin: 09/17/18 21:25 Dose: 0.8 unit Levothyroxine Sodium (Synthroid) 150 mcg PO 0600 [facility] Last Admin: 10/05/18 09:54 Dose: 150 mcg Lorazepam (Ativan) 2 mg IM Q6 PRN; Protocol PRN Reason: Agitation Last Admin: 10/05/18 06:51 Dose: 2 mg Lorazepam (Ativan) 2 mg PO Q6H PRN; Protocol PRN Reason: anxiety/agitation Last Admin: 10/04/18 14:53 Dose: 2 mg Magnesium Oxide (Mag-Ox) 400 mg PO BID [facility] Last Admin: 10/05/18 09:55 Dose: 400 mg Pantoprazole Sodium (Protonix Ec Tab) 40 mg PO 0600 [facility] Last Admin: 10/05/18 09:55 Dose: 40 mg Propranolol HCl (Inderal) 10 mg PO DAILY [facility] Last Admin: 10/05/18 10:15 Dose: 10 mg Quetiapine Fumarate (Seroquel) 150 mg PO AMHS [facility]; Protocol Last Admin: 10/05/18 11:20 Dose: 150 mg Saliva Substitute (Saliva Substitute) 0 ml PO TID PRN PRN Reason: Dry mouth Last Admin: 10/04/18 13:41 Dose: 1 ml Valproate Sodium (Depakene Oral Soln) 250 mg PO BID [facility] Valproate Sodium (Depakene Oral Soln) 500 mg PO HS [facility] Zolpidem Tartrate (Ambien) 5 mg PO HS PRN; Protocol PRN Reason: Insomnia Last Admin: 09/19/18 21:00 Dose: 5 mg - Labs Labs: 10/01/18 07:50 10/01/18 07:50 - Constitutional Appears: Non-toxic - Respiratory Exam Respiratory Exam: absent: Accessory Muscle Use - Extremities Exam Extremities Exam: Full ROM, Normal Capillary Refill, Normal Inspection. absent: Joint Swelling, Pedal Edema - Psychiatric Exam Psychiatric exam: Anxious. absent: Normal Affect, Normal Mood - Skin Skin Exam: Dry, Intact, Normal Color, Warm Assessment and Plan - Assessment and Plan (Free Text) Assessment: Ms. Will is a 48 y/o with pmhx significant for a remote history ER/UT+/HER2 negative stage II-III breast cancer of right s/p mastectomy with persistent right arm lymphadenopathy who is currently admitted with psychosis in setting of known schizzoaffective d/o. Patient currently not on any medications for breast cancer. Primary team asked about humira? Will need to follow up with pcp b/c she is not perscribed humira from an oncology stand point. Syed Crisostomo MD Oncology Service <Franchesca Crisostomo P - Last Filed: 10/18/18 20:01> Objective - Vital Signs/Intake and Output Vital Signs (last 24 hours): Temp Pulse Resp BP Pulse Ox 98.8 F 64 18 115/65 96 10/17/18 23:53 10/18/18 09:03 10/17/18 14:15 10/18/18 09:03 10/17/18 14:15 - Medications Medications: Current Medications Alprazolam (Xanax) 0.25 mg PO BID DAT; Protocol Stop: 10/23/18 09:16 Last Admin: 10/18/18 17:00 Dose: Not Given Alprazolam (Xanax) 0.25 mg PO HS DAT; Protocol Last Admin: 10/17/18 21:26 Dose: 0.25 mg Amoxicillin/Clavulanate Potassium (Augmentin 875 Mg-125 Mg Tab) 1 tab PO Q12 DAT; Protocol Last Admin: 10/18/18 17:51 Dose: Not Given Bacitracin (Bacitracin) 1 gm TOP BID DAT Last Admin: 10/18/18 17:00 Dose: Not Given Chlorpromazine (Thorazine) 50 mg IM Q6H PRN; Protocol PRN Reason: Agitation Last Admin: 10/17/18 23:40 Dose: 50 mg Chlorpromazine (Thorazine) 50 mg PO Q6H PRN; Protocol PRN Reason: psychosis/agitation Last Admin: 10/11/18 05:28 Dose: 50 mg Clozapine (Clozaril) 200 mg PO HS DAT; Protocol Last Admin: 10/17/18 21:25 Dose: 200 mg Clozapine (Clozaril) 150 mg PO QAM DAT; Protocol Last Admin: 10/18/18 09:00 Dose: 150 mg Fluoxetine HCl (Prozac) 40 mg PO DAILY DAT Last Admin: 10/18/18 09:01 Dose: 40 mg Folic Acid (Folic Acid) 1 mg PO DAILY [facility] Last Admin: 10/18/18 09:01 Dose: 1 mg Home Med (Home Med) 0.8 unit SC Q2W [facility] Last Admin: 10/14/18 11:49 Dose: 0.8 unit Levothyroxine Sodium (Synthroid) 100 mcg PO 0600 [facility] Last Admin: 10/18/18 06:25 Dose: 100 mcg Magnesium Oxide (Mag-Ox) 400 mg PO BID [facility] Last Admin: 10/18/18 17:00 Dose: Not Given Metoprolol Tartrate (Lopressor) 25 mg PO BRKDIN [facility] Last Admin: 10/18/18 17:00 Dose: Not Given Pantoprazole Sodium (Protonix Ec Tab) 40 mg PO 0600 [facility] Last Admin: 10/18/18 06:25 Dose: 40 mg Saliva Substitute (Saliva Substitute) 0 ml PO TID PRN PRN Reason: Dry mouth Last Admin: 10/04/18 13:41 Dose: 1 ml Valproate Sodium (Depakene Oral Soln) 500 mg PO [facility] Last Admin: 10/17/18 21:24 Dose: 500 mg Zolpidem Tartrate (Ambien) 5 mg PO [facility]; Protocol Last Admin: 10/17/18 21:26 Dose: 5 mg - Labs Labs: 10/17/18 23:30 10/16/18 08:15 Attending/Attestation - Attestation I have personally seen and examined this patient.: Yes I have fully participated in the care of the patient.: Yes I have reviewed all pertinent clinical information, including history, physical exam and plan: Yes
[2018-10-05] MEDS: Valproic Acid 250 mg/5 ml UD Cup PO SCH ×2 (17:38→21:47)
--- NOTE | 2018-10-05 20:34 | PN ---
DATE: 10/04/2018 SUBJECTIVE: The patient is in the bed, one-to-one, the patient is being sedated. She does try to come to get up and move, but she is more sedated and sleepy. No physical distress and no falls. PHYSICAL EXAMINATION: The patient has, otherwise, on physical examination no change. VITAL SIGNS: Temperature 97, heart rate 80, blood pressure 134/69, and respirations 18. HEENT: Head and neck, normal. No JVD. No thyromegaly. CHEST: Clear bilateral. CARDIAC: First sound and second sound normal. ABDOMEN: Soft and nontender. EXTREMITIES: No edema. NEUROLOGIC: Normal. LABORATORY DATA: No change, not done. Urine culture has been sent, repeat one, and the patient was started on Vantin. We will get Dr. James to help us with this and will continue current. IMPRESSION AND PLAN: 1. Schizoaffective disorder, urinary tract infection. Again, Escherichia coli enterococcus. She is on Vantin. I am going to talk to Dr. James to see the patient. 2. Hypothyroidism, history of renal insufficiency, dehydration. Continue to encourage by mouth intake. The patient is afebrile. Normal white count. Continue current therapy, will follow up with the specialist. Igor Ca MD
--- NOTE | 2018-10-05 20:58 | PN ---
DATE: 10/03/2018 SUBJECTIVE: The patient is being sedated. She has no physical distress, no new complaints. She is still talking about different things, different relevant matters. PHYSICAL EXAMINATION VITAL SIGNS: Temperature 97.5, heart rate 95, blood pressure 100/71, respirations 18. HEENT: Head and neck normal. No JVD. CHEST: Clear bilaterally. CARDIAC: First and second sound normal. ABDOMEN: Soft and nontender. EXTREMITIES: No edema. NEUROLOGICAL: Normal. The patient . LABORATORY DATA: No labs. IMPRESSION: 1. Schizoaffective disorder. The patient will be started on Clozaril. We will continue psychotherapy. 2. Hypothyroidism. The patient is stable on medication. We will repeat her mediation. Later, she is not tachycardic or toxic from the medications. 3. History of dysphagia. The problem of is not anymore. The patient is tolerating diet good. We encouraged p.o. intake. 4. Renal insufficiency acute due to dehydration and urinary tract infection, stable. Urine sample collected. Continue current therapy. 5. History of rheumatoid arthritis. She needs an injection. We will get a rheumatology consult to evaluate that. Continue current therapy. Igor Ca MD
[2018-10-06] MEDS: Valproic Acid 250 mg/5 ml UD Cup PO SCH ×2 (08:57→19:22)
[2018-10-06] MEDS: Pantoprazole 40 mg EC Tab PO SCH (08:57)
[2018-10-06] MEDS: Magnesium Oxide 400 mg Tab UD PO SCH ×2 (08:57→19:22)
[2018-10-06] MEDS: Bacitracin Ointment 30 GM TUBE TOP SCH ×2 (09:06→19:21)
[2018-10-06 12:56] LABS: PH,URINE 6.5 (4.7-8.0); URINE BILIRUBIN NEGATIVE (NEGATIVE); URINE BLOOD TRACE-INTACT (NEGATIVE); URINE GLUCOSE (UA) NEGATIVE (NEGATIVE); URINE LEUKOCYTE ESTERASE SMALL Leu/uL (NEGATIVE); URINE PROTEIN TRACE mg/dL (<30 mg/dL); URINE UROBILINOGEN 0.2 E.U./dL (<1 E.U./dL)
[2018-10-06 12:59] LABS: URINE APPEARANCE SL CLOUDY (CLEAR); URINE COLOR YELLOW (YELLOW)
[2018-10-06 13:04] LABS: URINE BACTERIA LARGE (NEG); URINE RBC 0 - 2 /hpf (0-2)
--- NOTE | 2018-10-06 15:09 | CP.PCM.PN ---
<Arun Santana - Last Filed: 10/06/18 16:51> Subjective - Date & Time of Evaluation Date of Evaluation: 10/06/18 Time of Evaluation: 09:00 - Subjective Subjective: Arun Santana DO, PGY-2: Hematology and Oncology Progress Note Patient was seen and examined in the psych flanagan. She was speaking in Dive[place], would not follow commands. She is on a one to one in psych. was spoken to in regards to the patient's Humira. Objective - Vital Signs/Intake and Output Vital Signs (last 24 hours): Temp Pulse Resp BP Pulse Ox 98.0 F 92 H 20 128/89 99 10/06/18 07:26 10/06/18 08:52 10/06/18 07:26 10/06/18 08:52 09/21/18 10:15 - Medications Medications: Current Medications Acetaminophen (Tylenol 325mg Tab) 650 mg PO Q6H PRN PRN Reason: Pain, moderate (4-7) Bacitracin (Bacitracin) 1 gm TOP BID DAT Last Admin: 10/06/18 09:06 Dose: 1 oin Chlorpromazine (Thorazine) 50 mg IM Q6H PRN; Protocol PRN Reason: Agitation Last Admin: 10/05/18 23:14 Dose: 50 mg Chlorpromazine (Thorazine) 50 mg PO Q6H PRN; Protocol PRN Reason: psychosis/agitation Last Admin: 10/03/18 03:24 Dose: 50 mg Clonazepam (Klonopin) 2 mg PO BID DAT; Protocol Last Admin: 10/06/18 08:55 Dose: 2 mg Clonazepam (Klonopin) 2 mg PO HS DAT; Protocol Last Admin: 10/05/18 21:47 Dose: 2 mg Clozapine (Clozaril) 50 mg PO QAM DAT; Protocol Last Admin: 10/06/18 09:07 Dose: 50 mg Clozapine (Clozaril) 75 mg PO HS DAT; Protocol Diphenhydramine HCl (Benadryl) 50 mg IM Q6H PRN PRN Reason: Anxiety Last Admin: 10/05/18 23:15 Dose: 50 mg Fluoxetine HCl (Prozac) 40 mg PO DAILY DAT Last Admin: 10/06/18 08:54 Dose: 40 mg Folic Acid (Folic Acid) 1 mg PO DAILY DAT Last Admin: 10/06/18 08:56 Dose: 1 mg Gabapentin (Neurontin) 300 mg PO DAILY [facility]; Protocol Last Admin: 10/06/18 08:55 Dose: 300 mg Home Med (Home Med) 0.8 unit SC Q2W [facility] Last Admin: 09/17/18 21:25 Dose: 0.8 unit Levothyroxine Sodium (Synthroid) 100 mcg PO 0600 [facility] Lorazepam (Ativan) 2 mg IM Q6 PRN; Protocol PRN Reason: Agitation Last Admin: 10/05/18 23:15 Dose: 2 mg Lorazepam (Ativan) 2 mg PO Q6H PRN; Protocol PRN Reason: anxiety/agitation Last Admin: 10/04/18 14:53 Dose: 2 mg Magnesium Oxide (Mag-Ox) 400 mg PO BID [facility] Last Admin: 10/06/18 08:57 Dose: 400 mg Pantoprazole Sodium (Protonix Ec Tab) 40 mg PO 0600 [facility] Last Admin: 10/06/18 08:57 Dose: 40 mg Propranolol HCl (Inderal) 10 mg PO DAILY [facility] Last Admin: 10/06/18 08:52 Dose: 10 mg Quetiapine Fumarate (Seroquel) 100 mg PO AMHS [facility]; Protocol Saliva Substitute (Saliva Substitute) 0 ml PO TID PRN PRN Reason: Dry mouth Last Admin: 10/04/18 13:41 Dose: 1 ml Valproate Sodium (Depakene Oral Soln) 250 mg PO BID [facility] Last Admin: 10/06/18 08:57 Dose: 250 mg Valproate Sodium (Depakene Oral Soln) 500 mg PO HS [facility] Last Admin: 10/05/18 21:47 Dose: 500 mg Zolpidem Tartrate (Ambien) 5 mg PO HS PRN; Protocol PRN Reason: Insomnia Last Admin: 09/19/18 21:00 Dose: 5 mg - Labs Labs: 10/01/18 07:50 10/01/18 07:50 - Constitutional Appears: Well, Non-toxic - Head Exam Head Exam: ATRAUMATIC, NORMOCEPHALIC - Eye Exam Eye Exam: EOMI, Normal appearance - ENT Exam ENT Exam: Mucous Membranes Moist - Neck Exam Neck Exam: Normal Inspection Assessment and Plan - Assessment and Plan (Free Text) Assessment: Ms. Will is a 48 y/o with pmhx significant for a remote history ER/MD+/HER2 negative stage II-III breast cancer of right s/p mastectomy with persistent right arm lymphadenopathy who is currently admitted with psychosis in setting of known schizzoaffective d/o. Patient currently not on any medications for breast cancer. Patient is not in any life threatening crisis related to her rheumatoid arthritis at this time If patient will tolerate, we can give one dose of Humira 40 mg SC injection. 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 Case was reviewed and discussed with attending physician, Dr. Crisostomo <Franchesca Crisostomo P - Last Filed: 10/18/18 20:00> Objective - Vital Signs/Intake and Output Vital Signs (last 24 hours): Temp Pulse Resp BP Pulse Ox 98.8 F 64 18 115/65 96 10/17/18 23:53 10/18/18 09:03 10/17/18 14:15 10/18/18 09:03 10/17/18 14:15 - Medications Medications: Current Medications Alprazolam (Xanax) 0.25 mg PO BID DAT; Protocol Stop: 10/23/18 09:16 Last Admin: 10/18/18 17:00 Dose: Not Given Alprazolam (Xanax) 0.25 mg PO HS DAT; Protocol Last Admin: 10/17/18 21:26 Dose: 0.25 mg Amoxicillin/Clavulanate Potassium (Augmentin 875 Mg-125 Mg Tab) 1 tab PO Q12 DAT; Protocol Last Admin: 10/18/18 17:51 Dose: Not Given Bacitracin (Bacitracin) 1 gm TOP BID DAT Last Admin: 10/18/18 17:00 Dose: Not Given Chlorpromazine (Thorazine) 50 mg IM Q6H PRN; Protocol PRN Reason: Agitation Last Admin: 10/17/18 23:40 Dose: 50 mg Chlorpromazine (Thorazine) 50 mg PO Q6H PRN; Protocol PRN Reason: psychosis/agitation Last Admin: 10/11/18 05:28 Dose: 50 mg Clozapine (Clozaril) 200 mg PO HS DAT; Protocol Last Admin: 10/17/18 21:25 Dose: 200 mg Clozapine (Clozaril) 150 mg PO QAM DAT; Protocol Last Admin: 10/18/18 09:00 Dose: 150 mg Fluoxetine HCl (Prozac) 40 mg PO DAILY [facility] Last Admin: 10/18/18 09:01 Dose: 40 mg Folic Acid (Folic Acid) 1 mg PO DAILY [facility] Last Admin: 10/18/18 09:01 Dose: 1 mg Home Med (Home Med) 0.8 unit SC Q2W [facility] Last Admin: 10/14/18 11:49 Dose: 0.8 unit Levothyroxine Sodium (Synthroid) 100 mcg PO 0600 [facility] Last Admin: 10/18/18 06:25 Dose: 100 mcg Magnesium Oxide (Mag-Ox) 400 mg PO BID [facility] Last Admin: 10/18/18 17:00 Dose: Not Given Metoprolol Tartrate (Lopressor) 25 mg PO BRKDIN [facility] Last Admin: 10/18/18 17:00 Dose: Not Given Pantoprazole Sodium (Protonix Ec Tab) 40 mg PO 0600 [facility] Last Admin: 10/18/18 06:25 Dose: 40 mg Saliva Substitute (Saliva Substitute) 0 ml PO TID PRN PRN Reason: Dry mouth Last Admin: 10/04/18 13:41 Dose: 1 ml Valproate Sodium (Depakene Oral Soln) 500 mg PO [facility] Last Admin: 10/17/18 21:24 Dose: 500 mg Zolpidem Tartrate (Ambien) 5 mg PO HS [facility]; Protocol Last Admin: 10/17/18 21:26 Dose: 5 mg - Labs Labs: 10/17/18 23:30 10/16/18 08:15 Attending/Attestation - Attestation I have personally seen and examined this patient.: Yes I have fully participated in the care of the patient.: Yes I have reviewed all pertinent clinical information, including history, physical exam and plan: Yes
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
--- NOTE | 2018-10-06 15:51 | CP.PCM.CON ---
<ChristSailaja - Last Filed: 10/06/18 15:30> History of Present Illness - History of Present Illness History of Present Illness: ID Consult Note - Dr. Oneil HPI: 48 F with a PMHx Stage III Right Breast Cancer s/p right mastectomy with chemoradiation in 2003 and right breast reconstruction 2012, and chronic right arm lymphedema presenting with difficulty swallowing and exacerbation of schizoaffective disorder. Pt was found to be dehydrated, her earlier complaints of dysphagia have improved. ID was consulted for abnormal UA and completed a course of antibiotics. Most recent UA on 10/01/18 was abnormal, however she has refused burning or dysuria to the nursing staff. Pt is non-cooperative this morning and refused to be examined or talk. ROS unavailable. PMHx:breast ca, schizoaffective disorder PSHx: mastectomy &reconstruction SHx: Denied tobacco/alcohol/illicits Meds; Reviewed Allergies: Vancomycin Review of Systems - Review of Systems Systems not reviewed;Unavailable: Acuity of Condition Past Patient History - Infectious Disease Hx of Infectious Diseases: None - Tetanus Immunizations Tetanus Immunization: Unknown - Past Medical History & Family History Past Medical History?: Yes - Past Social History Alcohol: None Drugs: Denies Home Situation {Lives}: With Family (Please refer to results from patient's physical exam/ROS/labs in progress notes from her recent admission to the medical floor from 09/10/18-09/12/18, as well as ER ROS and physical exam on 09/09/18) - CARDIAC Hx Cardiac Disorders: No Hx Pacemaker: No - PULMONARY Hx Respiratory Disorders: No - NEUROLOGICAL Hx Neurological Disorder: No Hx Paralysis: No - HEENT Hx HEENT Problems: No - RENAL Hx Chronic Kidney Disease: No - ENDOCRINE/METABOLIC Hx Endocrine Disorders: Yes Hx Hyperthyroidism: Yes - HEMATOLOGICAL/ONCOLOGICAL Hx Blood Disorders: No Hx Blood Transfusions: No Hx Blood Transfusion Reaction: No - INTEGUMENTARY Hx Dermatological Problems: No - MUSCULOSKELETAL/RHEUMATOLOGICAL Hx Musculoskeletal Disorders: Yes - GASTROINTESTINAL Hx Gastrointestinal Disorders: No - GENITOURINARY/GYNECOLOGICAL Hx Genitourinary Disorders: Yes (C/S X 1) - PSYCHIATRIC Hx Psychophysiologic Disorder: No Hx Anxiety: No Hx Bipolar Disorder: No Hx Depression: Yes Hx Emotional Abuse: No Hx Hallucinations: Yes Hx Panic Symptoms: Yes Hx Paranoia: Yes Hx Physical Abuse: No Hx Schizophrenia: Yes Hx Sexual Abuse: No Hx Substance Use: No - SURGICAL HISTORY Hx Surgeries: Yes (SKIN GRAFT TAKEN FROM THIGH FOR RIGHT BREAST SX.C/S X 1) - ANESTHESIA Hx Anesthesia: Yes Hx Anesthesia Reactions: No Hx Malignant Hyperthermia: No Meds Allergies/Adverse Reactions: Allergies Allergy/AdvReac Type Severity Reaction Status Date / Time vancomycin AdvReac Intermediate ITCHING Verified 09/13/18 01:45 - Medications Medications: Current Medications Acetaminophen (Tylenol 325mg Tab) 650 mg PO Q6H PRN PRN Reason: Pain, moderate (4-7) Bacitracin (Bacitracin) 1 gm TOP BID DAT Last Admin: 10/06/18 09:06 Dose: 1 oin Chlorpromazine (Thorazine) 50 mg IM Q6H PRN; Protocol PRN Reason: Agitation Last Admin: 10/05/18 23:14 Dose: 50 mg Chlorpromazine (Thorazine) 50 mg PO Q6H PRN; Protocol PRN Reason: psychosis/agitation Last Admin: 10/03/18 03:24 Dose: 50 mg Clonazepam (Klonopin) 2 mg PO BID DAT; Protocol Last Admin: 10/06/18 08:55 Dose: 2 mg Clonazepam (Klonopin) 2 mg PO HS DAT; Protocol Last Admin: 10/05/18 21:47 Dose: 2 mg Clozapine (Clozaril) 50 mg PO QAM DAT; Protocol Last Admin: 10/06/18 09:07 Dose: 50 mg Clozapine (Clozaril) 75 mg PO HS DAT; Protocol Diphenhydramine HCl (Benadryl) 50 mg IM Q6H PRN PRN Reason: Anxiety Last Admin: 10/05/18 23:15 Dose: 50 mg Fluoxetine HCl (Prozac) 40 mg PO DAILY DAT Last Admin: 10/06/18 08:54 Dose: 40 mg Folic Acid (Folic Acid) 1 mg PO DAILY DAT Last Admin: 10/06/18 08:56 Dose: 1 mg Gabapentin (Neurontin) 300 mg PO DAILY DAT; Protocol Last Admin: 10/06/18 08:55 Dose: 300 mg Home Med (Home Med) 0.8 unit SC Q2W DAT Last Admin: 09/17/18 21:25 Dose: 0.8 unit Levothyroxine Sodium (Synthroid) 100 mcg PO 0600 DAT Lorazepam (Ativan) 2 mg IM Q6 PRN; Protocol PRN Reason: Agitation Last Admin: 10/05/18 23:15 Dose: 2 mg Lorazepam (Ativan) 2 mg PO Q6H PRN; Protocol PRN Reason: anxiety/agitation Last Admin: 10/04/18 14:53 Dose: 2 mg Magnesium Oxide (Mag-Ox) 400 mg PO BID [facility] Last Admin: 10/06/18 08:57 Dose: 400 mg Pantoprazole Sodium (Protonix Ec Tab) 40 mg PO 0600 [facility] Last Admin: 10/06/18 08:57 Dose: 40 mg Propranolol HCl (Inderal) 10 mg PO DAILY [facility] Last Admin: 10/06/18 08:52 Dose: 10 mg Quetiapine Fumarate (Seroquel) 100 mg PO [facility]; Protocol Saliva Substitute (Saliva Substitute) 0 ml PO TID PRN PRN Reason: Dry mouth Last Admin: 10/04/18 13:41 Dose: 1 ml Valproate Sodium (Depakene Oral Soln) 250 mg PO BID [facility] Last Admin: 10/06/18 08:57 Dose: 250 mg Valproate Sodium (Depakene Oral Soln) 500 mg PO HS [facility] Last Admin: 10/05/18 21:47 Dose: 500 mg Zolpidem Tartrate (Ambien) 5 mg PO HS PRN; Protocol PRN Reason: Insomnia Last Admin: 09/19/18 21:00 Dose: 5 mg Results - Vital Signs Recent Vital Signs: Last Vital Signs Temp 98.0 F 10/06/18 07:26 Pulse 92 H 10/06/18 08:52 Resp 20 10/06/18 07:26 BP 128/89 10/06/18 08:52 Pulse Ox 99 09/21/18 10:15 - Labs Result Diagrams: 10/01/18 07:50 10/01/18 07:50 Labs: Laboratory Results - last 24 hr 10/06/18 12:17 Urine Color Yellow Urine Appearance Sl cloudy Urine pH 6.5 Ur Specific [place] 1.025 Urine Protein Trace H Urine Glucose (UA) Negative Urine Ketones 15 H Urine Blood Trace-intact H Urine Nitrate Negative Urine Bilirubin Negative Urine Urobilinogen 0.2 Ur Leukocyte Esterase Small H Urine RBC 0 - 2 Urine WBC 10 - 15 Ur Epithelial Cells 4 - 5 Urine Bacteria Large Assessment & Plan - Assessment and Plan (Free Text) Assessment: 8 F with a PMHx Stage III Right Breast Cancer s/p right mastectomy with chemoradiation in 2003 and right breast reconstruction 2012, and chronic right arm lymphedema presenting with difficulty swallowing and exacerbation of schizoaffective disorder. Abn UA Schizoaffective Disorder Stage III Right Breast Cancer s/p right mastectomy with chemoradiation Dysphagia Plan: will redraw UA and urine cx RPR negative no leukocytosis no symptoms as per nursing staff fu HIV maintain 1:1 for behavior EGD 03/2018 to evaluate dysphagia showed mild upper/mid-esophagitis without Osborne's or eosinophilic esophagitis. EGD 07/2016 to evaluate iron deficiency anemia showed H. pylori negative gastritis. Colonoscopy 07/2016 showed a 1cm ascending inflammatory polyp and internal hemorrhoids. Will continue to monitor clinical course, fu Ucx HIV Seen reviewed and discussed with Dr. Oneil <Johnathan Oneil - Last Filed: 10/06/18 21:52> Meds - Medications Medications: Current Medications Acetaminophen (Tylenol 325mg Tab) 650 mg PO Q6H PRN PRN Reason: Pain, moderate (4-7) Bacitracin (Bacitracin) 1 gm TOP BID DAT Last Admin: 10/06/18 19:21 Dose: 1 oin Chlorpromazine (Thorazine) 50 mg IM Q6H PRN; Protocol PRN Reason: Agitation Last Admin: 10/05/18 23:14 Dose: 50 mg Chlorpromazine (Thorazine) 50 mg PO Q6H PRN; Protocol PRN Reason: psychosis/agitation Last Admin: 10/03/18 03:24 Dose: 50 mg Clonazepam (Klonopin) 2 mg PO BID DAT; Protocol Last Admin: 10/06/18 19:22 Dose: Not Given Clonazepam (Klonopin) 2 mg PO HS DAT; Protocol Last Admin: 10/05/18 21:47 Dose: 2 mg Clozapine (Clozaril) 50 mg PO QAM DAT; Protocol Last Admin: 10/06/18 09:07 Dose: 50 mg Clozapine (Clozaril) 75 mg PO HS DAT; Protocol Diphenhydramine HCl (Benadryl) 50 mg IM Q6H PRN PRN Reason: Anxiety Last Admin: 10/05/18 23:15 Dose: 50 mg Fluoxetine HCl (Prozac) 40 mg PO DAILY DAT Last Admin: 10/06/18 08:54 Dose: 40 mg Folic Acid (Folic Acid) 1 mg PO DAILY [facility] Last Admin: 10/06/18 08:56 Dose: 1 mg Gabapentin (Neurontin) 300 mg PO DAILY [facility]; Protocol Last Admin: 10/06/18 08:55 Dose: 300 mg Home Med (Home Med) 0.8 unit SC Q2W [facility] Last Admin: 09/17/18 21:25 Dose: 0.8 unit Levothyroxine Sodium (Synthroid) 100 mcg PO 0600 DAT Lorazepam (Ativan) 2 mg IM Q6 PRN; Protocol PRN Reason: Agitation Last Admin: 10/05/18 23:15 Dose: 2 mg Lorazepam (Ativan) 2 mg PO Q6H PRN; Protocol PRN Reason: anxiety/agitation Last Admin: 10/04/18 14:53 Dose: 2 mg Magnesium Oxide (Mag-Ox) 400 mg PO BID [facility] Last Admin: 10/06/18 19:22 Dose: Not Given Pantoprazole Sodium (Protonix Ec Tab) 40 mg PO 0600 [facility] Last Admin: 10/06/18 08:57 Dose: 40 mg Propranolol HCl (Inderal) 10 mg PO DAILY [facility] Last Admin: 10/06/18 08:52 Dose: 10 mg Quetiapine Fumarate (Seroquel) 100 mg PO [facility]; Protocol Last Admin: 10/06/18 10:25 Dose: 100 mg Saliva Substitute (Saliva Substitute) 0 ml PO TID PRN PRN Reason: Dry mouth Last Admin: 10/04/18 13:41 Dose: 1 ml Valproate Sodium (Depakene Oral Soln) 250 mg PO BID [facility] Last Admin: 10/06/18 19:22 Dose: Not Given Valproate Sodium (Depakene Oral Soln) 500 mg PO HS [facility] Last Admin: 10/05/18 21:47 Dose: 500 mg Zolpidem Tartrate (Ambien) 5 mg PO HS PRN; Protocol PRN Reason: Insomnia Last Admin: 09/19/18 21:00 Dose: 5 mg Results - Vital Signs Recent Vital Signs: Last Vital Signs Temp 98.0 F 10/06/18 07:26 Pulse 92 H 10/06/18 08:52 Resp 20 10/06/18 07:26 BP 128/89 10/06/18 08:52 Pulse Ox 99 09/21/18 10:15 - Labs Result Diagrams: 10/01/18 07:50 10/01/18 07:50 Labs: Laboratory Results - last 24 hr 10/06/18 12:17 Urine Color Yellow Urine Appearance Sl cloudy Urine pH 6.5 Ur Specific [place] 1.025 Urine Protein Trace H Urine Glucose (UA) Negative Urine Ketones 15 H Urine Blood Trace-intact H Urine Nitrate Negative Urine Bilirubin Negative Urine Urobilinogen 0.2 Ur Leukocyte Esterase Small H Urine RBC 0 - 2 Urine WBC 10 - 15 Ur Epithelial Cells 4 - 5 Urine Bacteria Large Assessment & Plan - Assessment and Plan (Free Text) Assessment: Infectious diseases Attending Physician Attestation Patient seen and examined, discussed with medical educator. I have reviewed the patient's history of present illness, past medical, social, personal and family histories, pertinent physical exam findings, course so far in this hospital admission, pertinent laboratory and imaging results. I agree with the above findings, assessment and plan. In addition, will repeat urine cx for this patient with probable asymptomatic bacteriuria with E. faecalis. Will monitor clinically.
[2018-10-06] MEDS: Levothyroxine 150 MCG TAB PO SCH (16:51)
[2018-10-07] MEDS: Valproic Acid 250 mg/5 ml UD Cup PO SCH ×4 (03:23→22:43)
[2018-10-07] MEDS: Pantoprazole 40 mg EC Tab PO SCH (05:57)
[2018-10-07] MEDS: Magnesium Oxide 400 mg Tab UD PO SCH ×2 (08:40→17:14)
[2018-10-07] MEDS: Bacitracin Ointment 30 GM TUBE TOP SCH ×2 (09:48→20:31)
--- NOTE | 2018-10-07 10:00 | PN ---
DATE: 10/06/2018 SUBJECTIVE: The patient is comfortable. She has no physical complaints; however, the patient still has disorganized thoughts, unrelevant to any reality. She has no any pain and no physical complaints, but she still has very disorganized thoughts that does not make any sense to towards talking to and asking her. PHYSICAL EXAMINATION VITAL SIGNS: Temperature is 98.9, heart rate 92, blood pressure 128/89, and respirations 20. HEAD AND NECK: Normal. No JVD. No thyromegaly. CHEST: Clear bilaterally. CARDIAC: First sound and second sound are normal. No murmurs or gallops. ABDOMEN: Soft, nontender. EXTREMITIES: No edema. NEUROLOGIC: Normal. LABORATORY DATA: As I mentioned, the urine shows Enterococcus. IMPRESSION AND PLAN: 1. Schizoaffective disorder, continue current medications as per psychiatrist. 2. History of breast cancer with right arm lymphedema. 3. Urinary tract infection due to Enterococcus. ID consultation, we will get Dr. Oneil to evaluate the treatment. The patient has no symptoms, so I will follow up his recommendations. 4. The patient has anemia. She had workup in the past including colonoscopy which shows inflammatory bowel but is always negative for cancer and also had an esophagogastroduodenoscopy for dysphagia which shows narrowing of the esophagus. At this time, the patient seems doing okay. She is fine. 5. Hypothyroidism. We will continue levothyroxine. I decreased the dose to 100, and we will follow up on that. Continue current therapy. The patient has been advised to lower the dose before admissions, but unclear whether she follow or she is compliant of medication, would stay on 100 mcg and then we will monitor her TSH and will go up if necessary. At this time, continue current therapy, continue current treatment and follow up with recommendations. The patient is physically stable and follow up the ID recommendations about the urinalysis. Igor Ca MD
--- NOTE | 2018-10-07 15:15 | PCM.PYCHPN ---
Psychiatric Progress Note - Psychiatric Progress Note Patient seen today, length of contact: 40min Patient Chief Complaint: "I am afraid, but I am doing well thank God" Problems Identified/Issues Discussed: this residential mortgage underwriter discuss Suicide/ homicide prevention, past psychiatric h/o, current psychiatric symptoms, medical problems, risk/benefits and alternatives of medications, medications compliance, coping strategies, substance abuse h/o, relapse prevention, importance of follow up with psychiatrist and therapist, discharge plan. Medical Problems: pt was dehydrated dysphagia is better UTI, patient completed course of antibiotics urine analysis showed leukocyte esterase again on 10/01/2018, awaiting for urine culture Diagnostic Results: 09/14/18 09:10 09/15/18 08:00 Lab Results 09/15/18 08:00: Sodium 140, Potassium 4.0, Chloride 102, Carbon Dioxide 28, Anion Gap 14, BUN 15, Creatinine 1.2, Est GFR ( Amer) 58, Est GFR (Non-Af Amer) 48, Random Glucose 97, Calcium 9.8 09/14/18 17:40: Urine Color Yellow, Urine Appearance Sl cloudy, Urine pH 6.0, Ur Specific [place] 1.010, Urine Protein Negative, Urine Glucose (UA) Negative, Urine Ketones Negative, Urine Blood Small H, Urine Nitrate Positive H, Urine Bilirubin Negative, Urine Urobilinogen 0.2, Ur Leukocyte Esterase Small H, Urine RBC 5 - 10, Urine WBC 20 - 25, Ur Epithelial Cells 10 - 12, Urine Bacteria Many 09/14/18 09:10: RPR Nonreactive 09/14/18 09:10: TSH 3rd Generation 5.59 H 09/14/18 09:10: Sodium 140, Potassium 4.0, Chloride 104, Carbon Dioxide 21, Anion Gap 18, BUN 15, Creatinine 1.6 H, Est GFR ( Amer) 42, Est GFR (Non- Af Amer) 35, Random Glucose 85, Calcium 10.0, Phosphorus 2.8, Magnesium 1.6 L, Total Bilirubin 0.5, AST 89 H D, ALT 57 H, Alkaline Phosphatase 88, Total Pr otein 8.0, Albumin 4.4, Globulin 3.6, Albumin/Globulin Ratio 1.2, Triglycerides 102, Cholesterol 234 H, LDL Cholesterol Direct 155 H, HDL Cholesterol 60 09/14/18 09:10: WBC 4.7 D, RBC 4.39, Hgb 12.4, Hct 37.8, MCV 86.1, MCH 28.2, MCHC 32.8, RDW 16.4 H, Plt Count 360, MPV 9.4, Gran % 50.8, Lymph % (Auto) 34.7, [place] % (Auto) 13.4 H, Eos % (Auto) 0.9 L, Baso % (Auto) 0.2, Gran # 2.39, Lymph # (Auto) 1.6, [place] # (Auto) 0.6, Eos # (Auto) 0.0, Baso # (Auto) 0.01 Microbiology 09/14/18 17:40 Urine Urine Culture - Preliminary Gram Negative [facility] Laboratory Results - last 24 hr 09/19/18 09:55 WBC 4.5 RBC 4.35 Hgb 12.2 Hct 38.3 MCV 88.0 MCH 28.0 MCHC 31.9 RDW 16.6 H Plt Count 318 MPV 9.6 Gran % 54.3 Lymph % (Auto) 30.0 [place] % (Auto) 14.8 H Eos % (Auto) 0.7 L Baso % (Auto) 0.2 Gran # 2.43 Lymph # (Auto) 1.3 [place] # (Auto) 0.7 H Eos # (Auto) 0.0 Baso # (Auto) 0.01 Abnormal Lab Results 09/22/18 09/22/18 07:30 07:30 WBC 3.4 L D RBC 4.34 Hgb 12.2 Hct 37.4 MCV 86.2 MCH 28.1 MCHC 32.6 RDW 16.5 H Plt Count 373 MPV 9.7 Sodium 141 Potassium 5.0 Chloride 107 Carbon Dioxide 25 Anion Gap 14 BUN 18 Creatinine 1.5 H Est GFR ( Amer) 45 Est GFR (Non-Af Amer) 37 Random Glucose 98 Calcium 10.2 Laboratory Results - last 72 hr 09/25/18 14:47 POC Glucose (mg/dL) 94 Vital Signs Temp Pulse Resp BP Pulse Ox 09/27/18 16:00 52 L 108/81 09/27/18 08:40 84 122/67 09/27/18 07:00 97.3 F L 84 18 122/67 09/26/18 08:04 121 H 136/114 H 09/26/18 07:26 98.2 F 54 L 22 136/114 H 09/25/18 09:08 80 124/70 09/24/18 16:00 93 H 112/74 09/24/18 09:17 97/50 L 09/24/18 07:20 97.1 F L 82 16 97/50 L 09/24/18 07:18 97.1 F L 82 20 97/50 L 09/23/18 16:00 86 110/67 09/23/18 06:49 97.7 F 77 20 114/69 09/22/18 16:00 83 103/57 L 09/22/18 12:26 97 H 110/72 09/21/18 10:21 90 116/71 09/21/18 10:15 98.4 F 90 20 116/71 99 09/20/18 15:45 100 H 95/70 L 09/20/18 10:04 93 H 146/96 H 09/20/18 06:48 98.1 F 79 16 98/60 L 09/19/18 16:00 60 116/88 09/19/18 07:28 97.3 F L 91 H 20 115/75 09/17/18 15:00 73 H 128/106 H 09/17/18 09:30 68 116/62 09/17/18 07:25 97.1 F L 80 18 92/58 L 09/16/18 16:00 102 H 120/81 09/16/18 09:47 104 H 124/99 H 09/16/18 07:17 98.0 F 87 18 98/59 L 09/15/18 09:07 103 H 106/70 09/15/18 07:00 97.8 F 105 H 19 86/60 L 09/14/18 16:28 90 139/118 H 09/14/18 07:00 97.9 F 60 17 115/72 09/13/18 08:30 114 H 20 129/100 H 09/13/18 07:00 98.5 F 55 L 22 169/114 H 09/13/18 06:50 55 L 169/114 H 09/12/18 16:11 97.2 F L 80 20 114/64 09/12/18 15:39 20 Abnormal Lab Results 09/29/18 19:14 WBC 4.8 RBC 4.34 Hgb 12.3 Hct 38.4 MCV 88.5 MCH 28.3 MCHC 32.0 RDW 16.7 H Plt Count 261 MPV 10.7 Gran % 39.9 L Lymph % (Auto) 42.0 H [place] % (Auto) 15.8 H Eos % (Auto) 1.9 Baso % (Auto) 0.4 Gran # 1.90 Lymph # (Auto) 2.0 Churchill # (Auto) 0.8 H Eos # (Auto) 0.1 Baso # (Auto) 0.02 Abnormal Lab Results 10/01/18 10/01/18 10/01/18 07:50 07:50 07:50 WBC 3.2 L D RBC 4.39 Hgb 12.2 Hct 38.8 MCV 88.4 MCH 27.8 MCHC 31.4 RDW 16.7 H Plt Count 280 MPV 9.9 Sodium 141 Potassium 4.2 Chloride 108 H Carbon Dioxide 28 Anion Gap 10 BUN 16 Creatinine 1.1 Est GFR ( Amer) > 60 Est GFR (Non-Af Amer) 53 Random Glucose 98 Calcium 9.5 Thyroxine (T4) 8.4 TSH 3rd Generation 1.86 Cortisol AM Sample 10/01/18 07:50 WBC RBC Hgb Hct MCV MCH MCHC RDW Plt Count MPV Sodium Potassium Chloride Carbon Dioxide Anion Gap BUN Creatinine Est GFR ( Amer) Est GFR (Non-Af Amer) Random Glucose Calcium Thyroxine (T4) TSH 3rd Generation Cortisol AM Sample 19.5 Temp Pulse Resp BP Pulse Ox 97.9 F 113 H 20 105/72 99 10/03/18 07:17 10/03/18 09:46 10/03/18 07:17 10/03/18 09:46 09/21/18 10:15 DSM 5 Symptoms Update: Patient is a 48-year-old [place] female with a psychiatric history of Schizoaffective disorder, multiple prior psychiatric admissions both in [place] and the [place]~ most recently hospitalized at [facility] x6 months ago, who was transferred from the medical floor after being treated from 09/10/18-09/12/18 for dysphagia. Pt was presented with depression, disorganization, paranoia, judaism preoccupation as well as bizarre behavior. On the medical floor patient required 1:1 because she was caught drinking her urine out of the toilet. Patient was trying to punish herself because she didn't deserve to live. Patient attends outpatient psychiatric treatment of [facility]. Her most recent follow up was on September 08, 2018. Patient has been compliant with Abilify 10 mg daily, Prozac 10 mg daily Seroquel 100 mg BID as well as Abilify Maintenna last injected September 08, 2018. pt was seen in treatment team meeting room, utilized translation system for interpretation, George ID #[id number], pt presented with acceptable personal hygiene, still disorganized, yesterday pt was visited by her family, but pt was deeply sleeping, no clozaril hs given to the pt, it will continue today for 50mg daily and 75mg hs. pt was making statements which are not related to each other. in the middle of the conversation pt started to cry. pt's asked to bring pt's daughter to visit pt, staff was advised to monitor closely during the visit. considering the fact pt had ECT in the past, most likely pt knows what is this procedure about, this residential mortgage underwriter had prolonged conversation with pt's , was willing pt to have ECT, but he is not her POA, now pt does not have a capacity to point anyone to be her POA, as well as for ECT. clozaril was started 10/01/18, pt is currently on 50mg po daily and 75mg po hs. 10/02/18 discussed with . Hem/onc was involved because pt has h/o breast cancer, was on humira, pt was see n by ID team for uti. Pt might benefit from ECT because pt responded well back in [place], but now pt lacks capacity to sign consent for treatment. Diagnostic Results: Schizoaffective Disorder r/o delirium Medication Change: Yes (clozaril increased, seroquel decreased, started depakote) Medical Record Reviewed: Yes Consults ordered or reviewed: patient was seen by medical team as well as nephrology team see notes for more detailed information pt was seen by Hem/Onc pt was seen by ID team Mental Status Examination - Cognitive Function Orientation: Place Memory: Impaired Attention: Poor Concentration: Poor Association: Loose Fund of Knowledge: Poor - Mood Mood: Depressed ("I am afraid"), Anxious - Affect Affect: Constricted (labile, agitated, histrionic) - Speech Speech: Appropriate - Formal Thought Process Formal Thought Process: Hallucinations, Delusions, Paranoia, Loosening of associations - Suicidal Ideation Suicidal Ideation: No - Homicidal Ideation Homicidal Ideation: No Goal/Treatment Plan - Goal/Treatment Plan Need for Continued Stay: Remain at risks for inpatient hospitalization, Severe depression anxiety, Discharge may exacerbated symptoms, Severe functional impairment Progress Toward Problem(s) and Goals/Treatment Plan: group, milieu and supportive tx (as tolerated) Clozaril 50mg po daily and 75mg po hs, will titrate accordingly Prozac 40 mg daily for depression and anxiety klonopin 2mg po bid and hs for anxiety and akathesia seroquel 100mg bid with plan to wean it off Abilify Maintenna was provided to patient on 09/08/18 Haldol d/c as PRN Thorazine 50mg po and IM prn ECT might be helpful, at the same time patient lacks capacity to make decision about this procedure and now,, patient does not have power of finance attorney pt is on Vantin for UTI (started 10/01/18) SW consultation for discharge plan and social issues Family involvement, pt wanted her to participate in her care family meeting took place today 09/19/18 CBC with differential wnl Follow up on labs Will monitor closely Pt was educated about risk/benefits and alternatives of medications, coping strategies (safety plan, suicide prevention), relapse prevention, importance of follow up with psychiatrist and therapist, stay away from drugs/alcohol/smoking Estimated Date of D/C: 10/10/18
--- NOTE | 2018-10-07 15:40 | PN ---
DATE: 10/07/2018 SUBJECTIVE: The patient is in bed, in no acute distress, nontoxic. PHYSICAL EXAMINATION: VITAL SIGNS: Temperature is 98. Blood pressure is 120/80, respiratory rate of 16. HEENT: Examination of HEENT is unremarkable. NECK: Supple. LUNGS: Have decreased breath sounds. HEART: Normal S1, S2. ABDOMEN: Examination is soft, nontender. LABORATORY DATA: Laboratory examination reveals a white count of 3.2, hemoglobin of 12, platelets of 218. Chemistries reveals a BUN of 16, creatinine of 1.1. Serology is negative and microbiology reveals the urine culture is positive. Review of orders reveals the patient to be off of antibiotics. ASSESSMENT AND PLAN: A 48-year-old female seen earlier this morning in psychiatric floor with history of right breast cancer, right mastectomy, chemotherapy, chemo radiation, right breast reconstruction in 2012, chronic right arm lymphedema, presenting with a schizoaffective disorder and had completed a course of antibiotics and as patient is asymptomatic at this point and with an abnormal urinalysis and urine culture and however, no symptoms, no leukocytosis, no fevers and gastrointestinal workup for the source. As far as the gastrointestinal issues are concerned, currently off of antibiotics, afebrile and no complaints this point. Scotty James MD
--- NOTE | 2018-10-07 18:16 | CP.PCM.PN ---
<Arun Santana - Last Filed: 10/07/18 18:16> Subjective - Date & Time of Evaluation Date of Evaluation: 10/07/18 Time of Evaluation: 18:15 - Subjective Subjective: Arun Santana DO, PGY-2: Hematology and Oncology Progress Note Patient was seen and examined in the psych flanagan. She was speaking in Amharic, would not follow commands. She was on a one to one in psych. Objective - Vital Signs/Intake and Output Vital Signs (last 24 hours): Temp Pulse Resp BP Pulse Ox 98.0 F 92 H 20 128/89 99 10/06/18 07:26 10/06/18 08:52 10/06/18 07:26 10/06/18 08:52 09/21/18 10:15 - Medications Medications: Current Medications Acetaminophen (Tylenol 325mg Tab) 650 mg PO Q6H PRN PRN Reason: Pain, moderate (4-7) Bacitracin (Bacitracin) 1 gm TOP BID DAT Last Admin: 10/07/18 09:48 Dose: 1 oin Chlorpromazine (Thorazine) 50 mg IM Q6H PRN; Protocol PRN Reason: Agitation Last Admin: 10/05/18 23:14 Dose: 50 mg Chlorpromazine (Thorazine) 50 mg PO Q6H PRN; Protocol PRN Reason: psychosis/agitation Last Admin: 10/03/18 03:24 Dose: 50 mg Clonazepam (Klonopin) 2 mg PO BID DAT; Protocol Last Admin: 10/07/18 17:14 Dose: 2 mg Clonazepam (Klonopin) 2 mg PO HS DAT; Protocol Last Admin: 10/07/18 03:23 Dose: Not Given Clozapine (Clozaril) 50 mg PO QAM DAT; Protocol Last Admin: 10/07/18 09:55 Dose: 50 mg Clozapine (Clozaril) 75 mg PO HS DAT; Protocol Last Admin: 10/07/18 03:23 Dose: Not Given Diphenhydramine HCl (Benadryl) 50 mg IM Q6H PRN PRN Reason: Anxiety Last Admin: 10/05/18 23:15 Dose: 50 mg Fluoxetine HCl (Prozac) 40 mg PO DAILY DAT Last Admin: 10/07/18 08:37 Dose: 40 mg Folic Acid (Folic Acid) 1 mg PO DAILY DAT Last Admin: 10/07/18 08:39 Dose: 1 mg Gabapentin (Neurontin) 300 mg PO DAILY [facility]; Protocol Last Admin: 10/07/18 08:38 Dose: 300 mg Home Med (Home Med) 0.8 unit SC Q2W [facility] Last Admin: 09/17/18 21:25 Dose: 0.8 unit Levothyroxine Sodium (Synthroid) 100 mcg PO 0600 DAT Lorazepam (Ativan) 2 mg IM Q6 PRN; Protocol PRN Reason: Agitation Last Admin: 10/05/18 23:15 Dose: 2 mg Lorazepam (Ativan) 2 mg PO Q6H PRN; Protocol PRN Reason: anxiety/agitation Last Admin: 10/04/18 14:53 Dose: 2 mg Magnesium Oxide (Mag-Ox) 400 mg PO BID [facility] Last Admin: 10/07/18 17:14 Dose: 400 mg Pantoprazole Sodium (Protonix Ec Tab) 40 mg PO 0600 [facility] Last Admin: 10/07/18 05:57 Dose: Not Given Propranolol HCl (Inderal) 10 mg PO DAILY [facility] Last Admin: 10/07/18 09:56 Dose: 10 mg Quetiapine Fumarate (Seroquel) 100 mg PO AMHS [facility]; Protocol Last Admin: 10/07/18 09:57 Dose: 100 mg Saliva Substitute (Saliva Substitute) 0 ml PO TID PRN PRN Reason: Dry mouth Last Admin: 10/04/18 13:41 Dose: 1 ml Valproate Sodium (Depakene Oral Soln) 250 mg PO BID [facility] Last Admin: 10/07/18 17:15 Dose: 250 mg Valproate Sodium (Depakene Oral Soln) 500 mg PO HS [facility] Last Admin: 10/07/18 03:23 Dose: Not Given Zolpidem Tartrate (Ambien) 5 mg PO HS PRN; Protocol PRN Reason: Insomnia Last Admin: 09/19/18 21:00 Dose: 5 mg - Labs Labs: 10/01/18 07:50 10/01/18 07:50 - Constitutional Appears: Non-toxic - Head Exam Head Exam: ATRAUMATIC, NORMOCEPHALIC - Eye Exam Eye Exam: EOMI, Normal appearance - ENT Exam ENT Exam: Mucous Membranes Moist - Neck Exam Neck Exam: Normal Inspection Assessment and Plan - Assessment and Plan (Free Text) Assessment: Ms. Will is a 48 y/o with pmhx significant for a remote history ER/CO+/HER2 negative stage II-III breast cancer of right s/p mastectomy with persistent r ight arm lymphadenopathy who is currently admitted with psychosis in setting of known schizzoaffective d/o. Patient currently not on any medications for breast cancer. We recommend consulting a assistant media buyer in regards to the Humira. Thank you for allowing us to participatge in the care of this patient. Please re- consult if needed. Case was reviewed and discussed with attending physician, Dr. Crisostomo <Franchesca Crisostomo P - Last Filed: 10/18/18 20:00> Objective - Vital Signs/Intake and Output Vital Signs (last 24 hours): Temp Pulse Resp BP Pulse Ox 98.8 F 64 18 115/65 96 10/17/18 23:53 10/18/18 09:03 10/17/18 14:15 10/18/18 09:03 10/17/18 14:15 - Medications Medications: Current Medications Alprazolam (Xanax) 0.25 mg PO BID DAT; Protocol Stop: 10/23/18 09:16 Last Admin: 10/18/18 17:00 Dose: Not Given Alprazolam (Xanax) 0.25 mg PO HS DAT; Protocol Last Admin: 10/17/18 21:26 Dose: 0.25 mg Amoxicillin/Clavulanate Potassium (Augmentin 875 Mg-125 Mg Tab) 1 tab PO Q12 DAT; Protocol Last Admin: 10/18/18 17:51 Dose: Not Given Bacitracin (Bacitracin) 1 gm TOP BID DAT Last Admin: 10/18/18 17:00 Dose: Not Given Chlorpromazine (Thorazine) 50 mg IM Q6H PRN; Protocol PRN Reason: Agitation Last Admin: 10/17/18 23:40 Dose: 50 mg Chlorpromazine (Thorazine) 50 mg PO Q6H PRN; Protocol PRN Reason: psychosis/agitation Last Admin: 10/11/18 05:28 Dose: 50 mg Clozapine (Clozaril) 200 mg PO HS DAT; Protocol Last Admin: 10/17/18 21:25 Dose: 200 mg Clozapine (Clozaril) 150 mg PO QAM DAT; Protocol Last Admin: 10/18/18 09:00 Dose: 150 mg Fluoxetine HCl (Prozac) 40 mg PO DAILY [facility] Last Admin: 10/18/18 09:01 Dose: 40 mg Folic Acid (Folic Acid) 1 mg PO DAILY [facility] Last Admin: 10/18/18 09:01 Dose: 1 mg Home Med (Home Med) 0.8 unit SC Q2W [facility] Last Admin: 10/14/18 11:49 Dose: 0.8 unit Levothyroxine Sodium (Synthroid) 100 mcg PO 0600 [facility] Last Admin: 10/18/18 06:25 Dose: 100 mcg Magnesium Oxide (Mag-Ox) 400 mg PO BID [facility] Last Admin: 10/18/18 17:00 Dose: Not Given Metoprolol Tartrate (Lopressor) 25 mg PO BRKDIN [facility] Last Admin: 10/18/18 17:00 Dose: Not Given Pantoprazole Sodium (Protonix Ec Tab) 40 mg PO 0600 [facility] Last Admin: 10/18/18 06:25 Dose: 40 mg Saliva Substitute (Saliva Substitute) 0 ml PO TID PRN PRN Reason: Dry mouth Last Admin: 10/04/18 13:41 Dose: 1 ml Valproate Sodium (Depakene Oral Soln) 500 mg PO [facility] Last Admin: 10/17/18 21:24 Dose: 500 mg Zolpidem Tartrate (Ambien) 5 mg PO HS [facility]; Protocol Last Admin: 10/17/18 21:26 Dose: 5 mg - Labs Labs: 10/17/18 23:30 10/16/18 08:15 Attending/Attestation - Attestation I have personally seen and examined this patient.: Yes I have fully participated in the care of the patient.: Yes I have reviewed all pertinent clinical information, including history, physical exam and plan: Yes
[2018-10-08] MEDS: Levothyroxine 100 MCG TAB PO SCH (05:59)
[2018-10-08] MEDS: Magnesium Oxide 400 mg Tab UD PO SCH ×2 (08:23→17:32)
[2018-10-08] MEDS: Bacitracin Ointment 30 GM TUBE TOP SCH ×2 (08:26→16:37)
[2018-10-08] MEDS: Pantoprazole 40 mg EC Tab PO SCH (08:27)
[2018-10-08] MEDS: Valproic Acid 250 mg/5 ml UD Cup PO SCH ×4 (08:28→23:26)
--- NOTE | 2018-10-08 15:37 | PCM.PYCHPN ---
Psychiatric Progress Note - Psychiatric Progress Note Patient seen today, length of contact: 40min Patient Chief Complaint: "I am afraid, but I am doing well thank God" Problems Identified/Issues Discussed: this board writer discuss Suicide/ homicide prevention, past psychiatric h/o, current psychiatric symptoms, medical problems, risk/benefits and alternatives of medications, medications compliance, coping strategies, substance abuse h/o, relapse prevention, importance of follow up with psychiatrist and therapist, discharge plan. Medical Problems: pt was dehydrated dysphagia is better UTI, patient completed course of antibiotics urine analysis showed leukocyte esterase again on 10/01/2018, awaiting for urine culture new UTI Diagnostic Results: 09/14/18 09:10 09/15/18 08:00 Lab Results 09/15/18 08:00: Sodium 140, Potassium 4.0, Chloride 102, Carbon Dioxide 28, Anion Gap 14, BUN 15, Creatinine 1.2, Est GFR ( Amer) 58, Est GFR (Non-Af Amer) 48, Random Glucose 97, Calcium 9.8 09/14/18 17:40: Urine Color Yellow, Urine Appearance Sl cloudy, Urine pH 6.0, Ur Specific [place] 1.010, Urine Protein Negative, Urine Glucose (UA) Negative, Urine Ketones Negative, Urine Blood Small H, Urine Nitrate Positive H, Urine Bilirubin Negative, Urine Urobilinogen 0.2, Ur Leukocyte Esterase Small H, Urine RBC 5 - 10, Urine WBC 20 - 25, Ur Epithelial Cells 10 - 12, Urine Bacteria Many 09/14/18 09:10: RPR Nonreactive 09/14/18 09:10: TSH 3rd Generation 5.59 H 09/14/18 09:10: Sodium 140, Potassium 4.0, Chloride 104, Carbon Dioxide 21, Anion Gap 18, BUN 15, Creatinine 1.6 H, Est GFR ( Amer) 42, Est GFR (Non- Af Amer) 35, Random Glucose 85, Calcium 10.0, Phosphorus 2.8, Magnesium 1.6 L, Total Bilirubin 0.5, AST 89 H D, ALT 57 H, Alkaline Phosphatase 88, Total Protein 8.0, Albumin 4.4, Globulin 3.6, Albumin/Globulin Ratio 1.2, Triglycerides 102, Cholesterol 234 H, LDL Cholesterol Direct 155 H, HDL Chol esterol 60 09/14/18 09:10: WBC 4.7 D, RBC 4.39, Hgb 12.4, Hct 37.8, MCV 86.1, MCH 28.2, MCHC 32.8, RDW 16.4 H, Plt Count 360, MPV 9.4, Gran % 50.8, Lymph % (Auto) 34.7, [place] % (Auto) 13.4 H, Eos % (Auto) 0.9 L, Baso % (Auto) 0.2, Gran # 2.39, Lymph # (Auto) 1.6, [place] # (Auto) 0.6, Eos # (Auto) 0.0, Baso # (Auto) 0.01 Microbiology 09/14/18 17:40 Urine Urine Culture - Preliminary Gram Negative [facility] Laboratory Results - last 24 hr 09/19/18 09:55 WBC 4.5 RBC 4.35 Hgb 12.2 Hct 38.3 MCV 88.0 MCH 28.0 MCHC 31.9 RDW 16.6 H Plt Count 318 MPV 9.6 Gran % 54.3 Lymph % (Auto) 30.0 [place] % (Auto) 14.8 H Eos % (Auto) 0.7 L Baso % (Auto) 0.2 Gran # 2.43 Lymph # (Auto) 1.3 [place] # (Auto) 0.7 H Eos # (Auto) 0.0 Baso # (Auto) 0.01 Abnormal Lab Results 09/22/18 09/22/18 07:30 07:30 WBC 3.4 L D RBC 4.34 Hgb 12.2 Hct 37.4 MCV 86.2 MCH 28.1 MCHC 32.6 RDW 16.5 H Plt Count 373 MPV 9.7 Sodium 141 Potassium 5.0 Chloride 107 Carbon Dioxide 25 Anion Gap 14 BUN 18 Creatinine 1.5 H Est GFR ( Amer) 45 Est GFR (Non-Af Amer) 37 Random Glucose 98 Calcium 10.2 Laboratory Results - last 72 hr 09/25/18 14:47 POC Glucose (mg/dL) 94 Vital Signs Temp Pulse Resp BP Pulse Ox 09/27/18 16:00 52 L 108/81 09/27/18 08:40 84 122/67 09/27/18 07:00 97.3 F L 84 18 122/67 09/26/18 08:04 121 H 136/114 H 09/26/18 07:26 98.2 F 54 L 22 136/114 H 09/25/18 09:08 80 124/70 09/24/18 16:00 93 H 112/74 09/24/18 09:17 97/50 L 09/24/18 07:20 97.1 F L 82 16 97/50 L 09/24/18 07:18 97.1 F L 82 20 97/50 L 09/23/18 16:00 86 110/67 09/23/18 06:49 97.7 F 77 20 114/69 09/22/18 16:00 83 103/57 L 09/22/18 12:26 97 H 110/72 09/21/18 10:21 90 116/71 09/21/18 10:15 98.4 F 90 20 116/71 99 09/20/18 15:45 100 H 95/70 L 09/20/18 10:04 93 H 146/96 H 09/20/18 06:48 98.1 F 79 16 98/60 L 09/19/18 16:00 60 116/88 09/19/18 07:28 97.3 F L 91 H 20 115/75 09/17/18 15:00 73 H 128/106 H 09/17/18 09:30 68 116/62 09/17/18 07:25 97.1 F L 80 18 92/58 L 09/16/18 16:00 102 H 120/81 09/16/18 09:47 104 H 124/99 H 09/16/18 07:17 98.0 F 87 18 98/59 L 09/15/18 09:07 103 H 106/70 09/15/18 07:00 97.8 F 105 H 19 86/60 L 09/14/18 16:28 90 139/118 H 09/14/18 07:00 97.9 F 60 17 115/72 09/13/18 08:30 114 H 20 129/100 H 09/13/18 07:00 98.5 F 55 L 22 169/114 H 09/13/18 06:50 55 L 169/114 H 09/12/18 16:11 97.2 F L 80 20 114/64 09/12/18 15:39 20 Abnormal Lab Results 09/29/18 19:14 WBC 4.8 RBC 4.34 Hgb 12.3 Hct 38.4 MCV 88.5 MCH 28.3 MCHC 32.0 RDW 16.7 H Plt Count 261 MPV 10.7 Gran % 39.9 L Lymph % (Auto) 42.0 H [place] % (Auto) 15.8 H Eos % (Auto) 1.9 Baso % (Auto) 0.4 Gran # 1.90 Lymph # (Auto) 2.0 [place] # (Auto) 0.8 H Eos # (Auto) 0.1 Baso # (Auto) 0.02 Abnormal Lab Results 10/01/18 10/01/18 10/01/18 07:50 07:50 07:50 WBC 3.2 L D RBC 4.39 Hgb 12.2 Hct 38.8 MCV 88.4 MCH 27.8 MCHC 31.4 RDW 16.7 H Plt Count 280 MPV 9.9 Sodium 141 Potassium 4.2 Chloride 108 H Carbon Dioxide 28 Anion Gap 10 BUN 16 Creatinine 1.1 Est GFR ( Amer) > 60 Est GFR (Non-Af Amer) 53 Random Glucose 98 Calcium 9.5 Thyroxine (T4) 8.4 TSH 3rd Generation 1.86 Cortisol AM Sample 10/01/18 07:50 WBC RBC Hgb Hct MCV MCH MCHC RDW Plt Count MPV Sodium Potassium Chloride Carbon Dioxide Anion Gap BUN Creatinine Est GFR ( Amer) Est GFR (Non-Af Amer) Random Glucose Calcium Thyroxine (T4) TSH 3rd Generation Cortisol AM Sample 19.5 Temp Pulse Resp BP Pulse Ox 97.9 F 113 H 20 105/72 99 10/03/18 07:17 10/03/18 09:46 10/03/18 07:17 10/03/18 09:46 09/21/18 10:15 Microbiology 10/06/18 12:17 Urine Culture - Final Urine Enterococcus Faecalis DSM 5 Symptoms Update: Patient is a 48-year-old [place] female with a psychiatric history of Schizoaffective disorder, multiple prior psychiatric admissions both in [place] and the [place]~ most recently hospitalized at [facility] x6 months ago, who was transferred from the medical floor after being treated from 09/10/18-09/12/18 for dysphagia. Pt was presented with depression, disorganization, paranoia, christian preoccupation as well as bizarre behavior. On the medical floor patient required 1:1 because she was caught drinking her urine out of the toilet. Patient was trying to punish herself because she didn't deserve to live. Patient attends outpatient psychiatric treatment of [facility]. Her most recent follow up was on September 08, 2018. Patient has been compliant with Abilify 10 mg daily, Prozac 10 mg daily Seroquel 100 mg BID as well as Abilify Maintenna last injected September 08, 2018. pt was seen next to the nursing station, pt presented the same, confused, psychotic, as per report for two days pt was not taking her hs dose of clozaril because of drowsiness time was changed to 2pm. considering the fact pt had ECT in the past, most likely pt knows what is this procedure about, this board writer had prolonged conversation with pt's , was willing pt to have ECT, but he is not her POA, now pt does not have a capacity to point anyone to be her POA, as well as for ECT. clozaril was started 10/01/18, pt is currently on 50mg po daily and 75mg po hs, cannot increase further because pt was not takin g75mg for 2days. 10/02/18 discussed with , pt is dx with UTI with e.Fecalis. . Hem/onc was involved because pt has h/o breast cancer, was on humira, pt was seen by ID team for uti. Pt might benefit from ECT because pt responded well back in [place], but now pt lacks capacity to sign consent for treatment. Diagnostic Results: Schizoaffective Disorder Medication Change: Yes Medical Record Reviewed: Yes Mental Status Examination - Cognitive Function Orientation: Place Memory: Impaired Attention: Poor Concentration: Poor Association: Loose Fund of Knowledge: Poor - Mood Mood: Depressed ("I am afraid"), Anxious - Affect Affect: Constricted (labile, agitated, histrionic) - Speech Speech: Appropriate - Formal Thought Process Formal Thought Process: Hallucinations, Delusions, Paranoia, Loosening of associations - Suicidal Ideation Suicidal Ideation: No - Homicidal Ideation Homicidal Ideation: No Goal/Treatment Plan - Goal/Treatment Plan Need for Continued Stay: Remain at risks for inpatient hospitalization, Severe depression anxiety, Discharge may exacerbated symptoms, Severe functional impairment Progress Toward Problem(s) and Goals/Treatment Plan: group, milieu and supportive tx (as tolerated) Clozaril 50mg po daily and 75mg po hs, will titrate accordingly Prozac 40 mg daily for depression and anxiety klonopin 2mg po bid and hs for anxiety and akathesia seroquel 100mg bid with plan to wean it off Abilify Maintenna was provided to patient on 09/08/18 Haldol d/c as PRN Thorazine 50mg po and IM prn ECT might be helpful, at the same time patient lacks capacity to make decision about this procedure and now,, patient does not have power of criminal attorney new UTI, ID and oncology involved SW consultation for discharge plan and social issues Family involvement, pt wanted her to participate in her care family meeting took place today 09/19/18 CBC with differential wnl Follow up on labs Will monitor closely Pt was educated about risk/benefits and alternatives of medications, coping strategies (safety plan, suicide prevention), relapse prevention, importance of follow up with psychiatrist and therapist, stay away from drugs/alcohol/smoking Estimated Date of D/C: 10/10/18
--- NOTE | 2018-10-08 21:09 | CP.PCM.PN ---
Subjective - Date & Time of Evaluation Date of Evaluation: 10/08/18 Time of Evaluation: 12:10 - Subjective Subjective: Difficult to examine patient because she is combative. No dysuria. Objective - Vital Signs/Intake and Output Vital Signs (last 24 hours): Temp Pulse Resp BP Pulse Ox 97.9 F 108 H 20 144/87 99 10/08/18 07:06 10/08/18 07:06 10/08/18 07:06 10/08/18 07:06 09/21/18 10:15 - Medications Medications: Current Medications Acetaminophen (Tylenol 325mg Tab) 650 mg PO Q6H PRN PRN Reason: Pain, moderate (4-7) Bacitracin (Bacitracin) 1 gm TOP BID [facility] Last Admin: 10/08/18 16:37 Dose: Not Given Chlorpromazine (Thorazine) 50 mg IM Q6H PRN; Protocol PRN Reason: Agitation Last Admin: 10/05/18 23:14 Dose: 50 mg Chlorpromazine (Thorazine) 50 mg PO Q6H PRN; Protocol PRN Reason: psychosis/agitation Last Admin: 10/08/18 05:59 Dose: 50 mg Clonazepam (Klonopin) 2 mg PO BID [facility]; Protocol Last Admin: 10/08/18 17:32 Dose: Not Given Clonazepam (Klonopin) 2 mg PO HS [facility]; Protocol Last Admin: 10/07/18 22:43 Dose: Not Given Clozapine (Clozaril) 50 mg PO QAM [facility]; Protocol Last Admin: 10/08/18 09:13 Dose: 50 mg Clozapine (Clozaril) 75 mg PO 1400 DAT; Protocol Last Admin: 10/08/18 14:54 Dose: 75 mg Diphenhydramine HCl (Benadryl) 50 mg IM Q6H PRN PRN Reason: Anxiety Last Admin: 10/05/18 23:15 Dose: 50 mg Fluoxetine HCl (Prozac) 40 mg PO DAILY [facility] Last Admin: 10/08/18 08:21 Dose: 40 mg Folic Acid (Folic Acid) 1 mg PO DAILY [facility] Last Admin: 10/08/18 08:27 Dose: 1 mg Gabapentin (Neurontin) 300 mg PO DAILY [facility]; Protocol Last Admin: 10/08/18 08:24 Dose: 300 mg Home Med (Home Med) 0.8 unit SC Q2W DAT Last Admin: 09/17/18 21:25 Dose: 0.8 unit Levothyroxine Sodium (Synthroid) 100 mcg PO 0600 [facility] Last Admin: 10/08/18 05:59 Dose: 100 mcg Lorazepam (Ativan) 2 mg IM Q6 PRN; Protocol PRN Reason: Agitation Last Admin: 10/05/18 23:15 Dose: 2 mg Lorazepam (Ativan) 2 mg PO Q6H PRN; Protocol PRN Reason: anxiety/agitation Last Admin: 10/08/18 05:59 Dose: 2 mg Magnesium Oxide (Mag-Ox) 400 mg PO BID [facility] Last Admin: 10/08/18 17:32 Dose: Not Given Pantoprazole Sodium (Protonix Ec Tab) 40 mg PO 0600 [facility] Last Admin: 10/08/18 08:27 Dose: 40 mg Propranolol HCl (Inderal) 10 mg PO DAILY [facility] Last Admin: 10/08/18 08:23 Dose: 10 mg Quetiapine Fumarate (Seroquel) 100 mg PO [facility]; Protocol Last Admin: 10/08/18 09:12 Dose: 100 mg Saliva Substitute (Saliva Substitute) 0 ml PO TID PRN PRN Reason: Dry mouth Last Admin: 10/04/18 13:41 Dose: 1 ml Valproate Sodium (Depakene Oral Soln) 250 mg PO BID [facility] Last Admin: 10/08/18 17:32 Dose: Not Given Valproate Sodium (Depakene Oral Soln) 500 mg PO HS [facility] Last Admin: 10/07/18 22:43 Dose: Not Given Zolpidem Tartrate (Ambien) 5 mg PO HS PRN; Protocol PRN Reason: Insomnia Last Admin: 09/19/18 21:00 Dose: 5 mg - Labs Labs: 10/01/18 07:50 10/01/18 07:50 - Constitutional Appears: No Acute Distress - Head Exam Head Exam: NORMAL INSPECTION Assessment and Plan - Assessment and Plan (Free Text) Plan: Assessment asymptomatic bacteriuria with E. faecalis HTN breast cancer S/P radiation therapy psychosis dyslipidemia Plan continue to monitor off antibiotics
[2018-10-09] MEDS: DiphenhydrAMINE 50 mg/ml Inj IM PRN (01:50)
[2018-10-09] MEDS: Magnesium Oxide 400 mg Tab UD PO SCH ×2 (08:24→17:26)
[2018-10-09] MEDS: Pantoprazole 40 mg EC Tab PO SCH (08:25)
[2018-10-09] MEDS: Levothyroxine 100 MCG TAB PO SCH (08:25)
[2018-10-09] MEDS: Valproic Acid 250 mg/5 ml UD Cup PO SCH ×3 (08:26→22:50)
[2018-10-09] MEDS: Bacitracin Ointment 30 GM TUBE TOP SCH ×2 (09:41→17:21)
[2018-10-09 09:45] LABS: BASO # 0.01 K/mm3 (0.0-2.0); BASO % 0.2 % (0.0-3.0); EOS # 0.1 (0.0-0.7); EOS % 1.9 % (1.5-5.0); GRAN # 3.43 (1.4-6.5); GRAN % 63.5 % (50.0-68.0); HEMOGLOBIN 11.3 g/dL (12.0-16.0); LYMPH # 1.2 (1.2-3.4); MEAN CORPUSCULAR HEMOGLOBIN 27.6 pg (25.0-35.0); MEAN CORPUSCULAR HGB CONC 31.4 g/dl (31.0-37.0); MEAN PLATELET VOLUME 9.8 fl (7.0-11.0); MONO # 0.7 (0.1-0.6); MONO % 12.4 % (1.0-6.0); RBC 4.09 10^6/uL (3.5-6.1); RED CELL DISTRIBUTION WIDTH 16.8 % (11.5-14.5); WHITE BLOOD COUNT 5.4 10^3/uL (4.5-11.0)
--- NOTE | 2018-10-09 13:34 | PCM.PYCHPN ---
Psychiatric Progress Note - Psychiatric Progress Note Patient seen today, length of contact: 30 minutes Patient Chief Complaint: "I do not know, I was at the [place]" Problems Identified/Issues Discussed: this report writer attempted to discuss suicide/ homicide prevention, past psychiatric h/o, current psychiatric symptoms, medical problems, risk/benefits and alternatives of medications, medications compliance, coping strategies, substance abuse h/o, relapse prevention, importance of follow up with psychiatrist and therapist, discharge plan. Medical Problems: pt was dehydrated, but doing better dysphagia is better UTI, patient completed course of antibiotics urine analysis showed leukocyte esterase again on 10/01/2018, Infectious disease wants to observe patient without antibiotics Diagnostic Results: 09/14/18 09:10 09/15/18 08:00 Lab Results 09/15/18 08:00: Sodium 140, Potassium 4.0, Chloride 102, Carbon Dioxide 28, Anion Gap 14, BUN 15, Creatinine 1.2, Est GFR ( Amer) 58, Est GFR (Non-Af Amer) 48, Random Glucose 97, Calcium 9.8 09/14/18 17:40: Urine Color Yellow, Urine Appearance Sl cloudy, Urine pH 6.0, Ur Specific [place] 1.010, Urine Protein Negative, Urine Glucose (UA) Negative, Urine Ketones Negative, Urine Blood Small H, Urine Nitrate Positive H, Urine Bilirubin Negative, Urine Urobilinogen 0.2, Ur Leukocyte Esterase Small H, Urine RBC 5 - 10, Urine WBC 20 - 25, Ur Epithelial Cells 10 - 12, Urine Bacteria Many 09/14/18 09:10: RPR Nonreactive 09/14/18 09:10: TSH 3rd Generation 5.59 H 09/14/18 09:10: Sodium 140, Potassium 4.0, Chloride 104, Carbon Dioxide 21, Anion Gap 18, BUN 15, Creatinine 1.6 H, Est GFR ( Amer) 42, Est GFR (Non- Af Amer) 35, Random Glucose 85, Calcium 10.0, Phosphorus 2.8, Magnesium 1.6 L, Total Bilirubin 0.5, AST 89 H D, ALT 57 H, Alkaline Phosphatase 88, Total Protein 8.0, Albumin 4.4, Globulin 3.6, Albumin/Globulin Ratio 1.2, Triglycerides 102, Cholesterol 234 H, LDL Cholesterol Direct 155 H, HDL Cholesterol 60 09/14/18 09:10: WBC 4.7 D, RBC 4.39, Hgb 12.4, Hct 37.8, MCV 86.1, MCH 28.2, MCHC 32.8, RDW 16.4 H, Plt Count 360, MPV 9.4, Gran % 50.8, Lymph % (Auto) 34.7, [place] % (Auto) 13.4 H, Eos % (Auto) 0.9 L, Baso % (Auto) 0.2, Gran # 2.39, Lymph # (Auto) 1.6, [place] # (Auto) 0.6, Eos # (Auto) 0.0, Baso # (Auto) 0.01 Microbiology 09/14/18 17:40 Urine Urine Culture - Preliminary Gram Negative [facility] Laboratory Results - last 24 hr 09/19/18 09:55 WBC 4.5 RBC 4.35 Hgb 12.2 Hct 38.3 MCV 88.0 MCH 28.0 MCHC 31.9 RDW 16.6 H Plt Count 318 MPV 9.6 Gran % 54.3 Lymph % (Auto) 30.0 [place] % (Auto) 14.8 H Eos % (Auto) 0.7 L Baso % (Auto) 0.2 Gran # 2.43 Lymph # (Auto) 1.3 [place] # (Auto) 0.7 H Eos # (Auto) 0.0 Baso # (Auto) 0.01 Abnormal Lab Results 09/22/18 09/22/18 07:30 07:30 WBC 3.4 L D RBC 4.34 Hgb 12.2 Hct 37.4 MCV 86.2 MCH 28.1 MCHC 32.6 RDW 16.5 H Plt Count 373 MPV 9.7 Sodium 141 Potassium 5.0 Chloride 107 Carbon Dioxide 25 Anion Gap 14 BUN 18 Creatinine 1.5 H Est GFR ( Amer) 45 Est GFR (Non-Af Amer) 37 Random Glucose 98 Calcium 10.2 Laboratory Results - last 72 hr 09/25/18 14:47 POC Glucose (mg/dL) 94 Vital Signs Temp Pulse Resp BP Pulse Ox 09/27/18 16:00 52 L 108/81 09/27/18 08:40 84 122/67 09/27/18 07:00 97.3 F L 84 18 122/67 09/26/18 08:04 121 H 136/114 H 09/26/18 07:26 98.2 F 54 L 22 136/114 H 09/25/18 09:08 80 124/70 09/24/18 16:00 93 H 112/74 09/24/18 09:17 97/50 L 09/24/18 07:20 97.1 F L 82 16 97/50 L 09/24/18 07:18 97.1 F L 82 20 97/50 L 09/23/18 16:00 86 110/67 09/23/18 06:49 97.7 F 77 20 114/69 09/22/18 16:00 83 103/57 L 09/22/18 12:26 97 H 110/72 09/21/18 10:21 90 116/71 09/21/18 10:15 98.4 F 90 20 116/71 99 09/20/18 15:45 100 H 95/70 L 09/20/18 10:04 93 H 146/96 H 09/20/18 06:48 98.1 F 79 16 98/60 L 09/19/18 16:00 60 116/88 09/19/18 07:28 97.3 F L 91 H 20 115/75 09/17/18 15:00 73 H 128/106 H 09/17/18 09:30 68 116/62 09/17/18 07:25 97.1 F L 80 18 92/58 L 09/16/18 16:00 102 H 120/81 09/16/18 09:47 104 H 124/99 H 09/16/18 07:17 98.0 F 87 18 98/59 L 09/15/18 09:07 103 H 106/70 09/15/18 07:00 97.8 F 105 H 19 86/60 L 09/14/18 16:28 90 139/118 H 09/14/18 07:00 97.9 F 60 17 115/72 09/13/18 08:30 114 H 20 129/100 H 09/13/18 07:00 98.5 F 55 L 22 169/114 H 09/13/18 06:50 55 L 169/114 H 09/12/18 16:11 97.2 F L 80 20 114/64 09/12/18 15:39 20 Abnormal Lab Results 09/29/18 19:14 WBC 4.8 RBC 4.34 Hgb 12.3 Hct 38.4 MCV 88.5 MCH 28.3 MCHC 32.0 RDW 16.7 H Plt Count 261 MPV 10.7 Gran % 39.9 L Lymph % (Auto) 42.0 H [place] % (Auto) 15.8 H Eos % (Auto) 1.9 Baso % (Auto) 0.4 Gran # 1.90 Lymph # (Auto) 2.0 [place] # (Auto) 0.8 H Eos # (Auto) 0.1 Baso # (Auto) 0.02 Abnormal Lab Results 10/01/18 10/01/18 10/01/18 07:50 07:50 07:50 WBC 3.2 L D RBC 4.39 Hgb 12.2 Hct 38.8 MCV 88.4 MCH 27.8 MCHC 31.4 RDW 16.7 H Plt Count 280 MPV 9.9 Sodium 141 Potassium 4.2 Chloride 108 H Carbon Dioxide 28 Anion Gap 10 BUN 16 Creatinine 1.1 Est GFR ( Amer) > 60 Est GFR (Non-Af Amer) 53 Random Glucose 98 Calcium 9.5 Thyroxine (T4) 8.4 TSH 3rd Generation 1.86 Cortisol AM Sample 10/01/18 07:50 WBC RBC Hgb Hct MCV MCH MCHC RDW Plt Count MPV Sodium Potassium Chloride Carbon Dioxide Anion Gap BUN Creatinine Est GFR ( Amer) Est GFR (Non-Af Amer) Random Glucose Calcium Thyroxine (T4) TSH 3rd Generation Cortisol AM Sample 19.5 Temp Pulse Resp BP Pulse Ox 97.9 F 113 H 20 105/72 99 10/03/18 07:17 10/03/18 09:46 10/03/18 07:17 10/03/18 09:46 09/21/18 10:15 Microbiology 10/06/18 12:17 Urine Culture - Final Urine Enterococcus Faecalis Temp Pulse Resp BP Pulse Ox 97.9 F 102 H 22 143/120 H 99 10/09/18 07:36 10/09/18 08:25 10/09/18 07:36 10/09/18 08:25 09/21/18 10:15 Laboratory Results - last 24 hr 10/09/18 09:30 WBC 5.4 D RBC 4.09 Hgb 11.3 L Hct 36.0 MCV 88.0 MCH 27.6 MCHC 31.4 RDW 16.8 H Plt Count 337 MPV 9.8 Gran % 63.5 Lymph % (Auto) 22.0 [place] % (Auto) 12.4 H Eos % (Auto) 1.9 Baso % (Auto) 0.2 Gran # 3.43 Lymph # (Auto) 1.2 [place] # (Auto) 0.7 H Eos # (Auto) 0.1 Baso # (Auto) 0.01 No signs of a granulocytosis DSM 5 Symptoms Update: Patient is a 48-year-old Citizen Of [place] female with a psychiatric history of Schizoaffective disorder, multiple prior psychiatric admissions both in [place] and the [place]~ most recently hospitalized at [facility] x6 months ago, who was transferred from the medical floor after being treated from 09/10/18-09/12/18 for dysphagia. Pt was presented with depression, disorganization, paranoia, pentecostalism preoccupation as well as bizarre behavior. On the medical floor patient required 1:1 because she was caught drinking her urine out of the toilet. Patient was trying to punish herself because she didn't deserve to live. Patient attends outpatient psychiatric treatment of [facility]. Her most recent follow up was on September 08, 2018. Patient has been compliant with Abilify 10 mg daily, Prozac 10 mg daily Seroquel 100 mg BID as well as Abilify Maintenna last injected September 08, 2018. Patient was seen at the treatment team meeting with medical students, utilized translation line [employer][id number] for interpretation. As per report from nursing staff patient did not sleep, was restless, confused. 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 Patient was talking about [place], family, then started to laugh inappropriately, then started to cry. This report writer will discontinue Seroquel, increase Clozaril, CBC with differential ordered. considering the fact pt had ECT in the past, most likely pt knows what is this procedure about, this report writer had prolonged conversation with pt's , was willing pt to have ECT, but he is not her POA, now pt does not have a capacity to point anyone to be her POA, as well as for ECT. clozaril was started 10/01/18, pt is currently on 50mg po daily today will increase to 100 mg at 4 PM. 10/02/18 discussed with , pt is dx with UTI with e.Fecalis. Infectious disease wants to observe patient with no antibiotics. Hem/onc was involved because pt has h/o breast cancer, was on humira. Pt might benefit from ECT because pt responded well back in [place], but now pt lacks capacity to sign consent for treatment. Diagnostic Results: Schizoaffective Disorder Medication Change: Yes (Seroquel discontinued, Depakote increased, Clozaril increased) Medical Record Reviewed: Yes Consults ordered or reviewed: patient was seen by medical team as well as nephrology team see notes for more detailed information pt was seen by Hem/Onc pt was seen by ID team Mental Status Examination - Cognitive Function Orientation: Place Memory: Impaired Attention: Poor Concentration: Poor Association: Loose Fund of Knowledge: Poor - Mood Mood: Depressed ("I am afraid"), Anxious - Affect Affect: Constricted (labile, agitated, histrionic) - Speech Speech: Appropriate - Formal Thought Process Formal Thought Process: Hallucinations, Delusions, Paranoia, Loosening of associations - Suicidal Ideation Suicidal Ideation: No - Homicidal Ideation Homicidal Ideation: No Goal/Treatment Plan - Goal/Treatment Plan Need for Continued Stay: Remain at risks for inpatient hospitalization, Severe depression anxiety, Discharge may exacerbated symptoms, Severe functional impairment Progress Toward Problem(s) and Goals/Treatment Plan: group, milieu and supportive tx (as tolerated) Clozaril 50mg po daily and 100 mg po hs, will titrate accordingly Prozac 40 mg daily for depression and anxiety klonopin 2mg po bid and hs for anxiety and akathesia seroquel will be discontinued today Twila Hartman was provided to patient on 09/08/18 Thorazine 50mg po and IM prn ECT might be helpful, at the same time patient lacks capacity to make decision about this procedure and now,, patient does not have power of trial attorney new UTI, ID and oncology involved SW consultation for discharge plan and social issues Family involvement, pt wanted her to participate in her care family meeting took place 09/19/18 [facility] with obflwhajpecw79/6/2018 stat Patient is registered clozaril [facility] Follow up on labs Will monitor closely Pt was educated about risk/benefits and alternatives of medications, coping strategies (safety plan, suicide prevention), relapse prevention, importance of follow up with psychiatrist and therapist, stay away from drugs/alcohol/smoking Estimated Date of D/C: 10/10/18
--- NOTE | 2018-10-09 13:54 | PN ---
DATE: 10/07/2018 SUBJECTIVE: The patient is more quiet now, but she is more sedated. She walked around unsteady and ended up by being on the bed moving around in the bed and tried to get out and move. She has no chest pain, no shortness of breath. She does recognize me. She knows in [place] and no other physical complaints. PHYSICAL EXAMINATION: VITAL SIGNS: Temperature is 97, heart rate 92, blood pressure 128/89, respirations 20. HEENT: Head and neck normal. No JVD. No thyromegaly. CHEST: Clear bilaterally. CARDIAC: First sound, second sound normal. ABDOMEN: Soft, obese, nontender. EXTREMITIES: Normal except the right upper extremity has lymphedema. LABORATORY STUDIES: The patient had TSH, cortisol level, chemistry. Creatinine level was normal and also had CBC, which shows hemoglobin is normal, white count is within normal range, initially 4.5 and has been running 3.2. IMPRESSION AND PLAN: 1. Schizoaffective disorder. The patient also has some component of depression. She is on Prozac plus antipsychotic and mood stabilizer treatment, and second generation antipsychotics in addition to benzodiazepines. The patient is getting Ativan 2 mg intramuscularly every 6 hours. She is getting also p.o. every 6 hours p.r.n. She is also getting Ambien 5 mg at bedtime p.r.n. The patient getting also Klonopin scheduled 2 mg p.o. b.i.d. and 2 mg at bedtime. She is also getting Neurontin 300 at bedtime, Prozac 40 mg, Seroquel 100 mg in the morning and at night. We will continue followup with psychiatrist and follow up his recommendations. 2. Hypothyroidism, stable. I reduced her steroid a little bit low to 100 mcg. She is supposed to be running on 125; however, she is not compliant. I will keep her on 100 and we will increase it slowly. 3. Dysphagia, probably related to radiation she received for her breast cancer. We will observe. She continues tolerating her diet well. 4. She has urinary tract infection. Infectious Disease consult is being requested with Dr. James who is seeing the patient and his recommendation to antibiotic and observe. Igor Ca MD [facility] # [id number]
--- NOTE | 2018-10-09 14:01 | PN ---
DATE: 10/08/2018 SUBJECTIVE: The patient is in bed. She is sedated, drowsy, moving around in the bed and try to get out of the bed and on one-to-one. No physical complaints. She recognized me, but she is sedated. PHYSICAL EXAMINATION: On 10/08/2018 as follows: VITAL SIGNS: Temperature 97.9, heart rate 108, blood pressure 144/87, and respirations 20. HEAD AND NECK: Normal. No JVD. No thyromegaly. CHEST: Clear bilaterally. CARDIAC: First sound and second sound are normal. ABDOMEN: Soft, obese, nontender. EXTREMITIES: No edema except right upper extremity lymphedema. NEUROLOGIC: Normal. IMPRESSION AND PLAN: 1. Schizoaffective disorder with being sedated with antipsychotic Ativan, Klonopin,Clozaril. Seems more sedated and less agitated and continue followup with the psychiatrist. 2. Hypothyroidism. Continue current therapy. 3. Dysphagia, radiation related esophageal narrowing and the patient does have a history of urinary tract infection . Seen by Infectious Disease. Continue to observe. No intervention at this time. No antibiotics. 4. Hypertension. Sometimes the blood pressure go up, but it does not stay too long. The office worker had seen the patient, Dr. Cole. There is no recommendation for any antihypertensive therapy. Most of the time blood pressure is good and heart rate is good. Probably related to agitation. Usually resting heart rate in the 70s. We will continue to observe and we will monitor the patient clinically. The patient also had a cortisol level normal. I will talk with the office worker and will see what he is saying about any differential diagnosis in this case. Thank you very much. Igor Ca MD
--- NOTE | 2018-10-09 14:53 | CP.PCM.PN ---
Subjective - Date & Time of Evaluation Date of Evaluation: 10/09/18 Time of Evaluation: 14:52 - Subjective Subjective: Nephrology Consultation Note: Assessment: Stable Acute Kidney Injury (N17.9) likely due to pre-renal state hx of HTN Ca breast s/p radiation and Rt arm lymphedema dysphagia psyhosis hyperlipidemia UTI Plan No acute need for renal replacement therapy at this time. . Hypertension control with meds as ordered. Maintain hemodynamics stable. Avoid hypotension. no ACEI/ARB due to TERESA. hold hctz due to pre renal state. inderal changed to lopressor bid. check plasma metanephrines in AM Monitor Input/Output, daily weights and renal function with basic metabolic panel pt to be encouraged to drink more water. d/w staff pt seen by ID for UTI Dose meds/antibiotics for improved GFR. Glycemic control Further work up/management as per primary team Thanks for allowing me to participate in care of your patient. Please call if any Qs. had d/w team Dr Johnson Gibbs Office: [phone] Chief Complaint; unable to obtain Reason for consult: Acute Kidney Injury HPI: Pt is a 48 F with hx of hypertension, Ca breast s/p radiation and Rt arm lymphedema presented with complaints of difficulty swallowing, seen by GI and heme/onc, transferred to [facility] for psychosis and noted to have higher Cr 1.6 Denies OTC/herbal meds or NSAIDs No recent iodinated contrast exposure. No obvious episodes of low BP. renal consult for TERESA ROS: pt unable to provide any hx. mumbling incomprehensibly Physical Examination: General Appearance: in no acute respiratory distress Vitals reviewed and noted as below Head; Atraumatic, normocephalic ENT: no ulcers no thrush. Tongue is midline. Oropharynx: no rash or ulcers. EYES: Pupils are equal, round and reactive to light accommodation. Eye muscles and extraocular movement intact. Sclera is anicteric. Neck; supple no lymphadenopathy, no thyromegaly or bruit Lungs: Normal respiratory rate/effort. Breath sounds bilateral equal and clear Heart: Normal rate. s1s2 normal. No rub or gallop. Extremities: no edema. No varicose veins. Rt arm lymphedema Neurological: Patient is awake Skin: Warm and dry. Normal turgor. No rash. Palpitation: Normal elasticity for age Abdomen: Abdomen is soft. Bowel sounds +. There is no abdominal tenderness, no guarding/rigidity no organomegaly Psych: lack insight. flat affect. mumbling incomprehensibly MSK: no joint tenderness or swelling. Digits and nails normal, no deformity : kidney or bladder not palpable Labs/imaging reviewed. Past medical history, past surgical history, family history, social history, allergy reviewed and noted as below Family hx: no hx of CKD. Rest non-contributory Objective - Vital Signs/Intake and Output Vital Signs (last 24 hours): Temp Pulse Resp BP Pulse Ox 97.9 F 115 H 22 107/73 99 10/09/18 07:36 10/09/18 13:37 10/09/18 07:36 10/09/18 13:37 09/21/18 10:15 - Medications Medications: Current Medications Acetaminophen (Tylenol 325mg Tab) 650 mg PO Q6H PRN PRN Reason: Pain, moderate (4-7) Bacitracin (Bacitracin) 1 gm TOP BID DAT Last Admin: 10/09/18 09:41 Dose: 1 oin Chlorpromazine (Thorazine) 50 mg IM Q6H PRN; Protocol PRN Reason: Agitation Last Admin: 10/05/18 23:14 Dose: 50 mg Chlorpromazine (Thorazine) 50 mg PO Q6H PRN; Protocol PRN Reason: psychosis/agitation Last Admin: 10/08/18 05:59 Dose: 50 mg Clonazepam (Klonopin) 2 mg PO BID DAT; Protocol Last Admin: 10/09/18 08:24 Dose: 2 mg Clonazepam (Klonopin) 2 mg PO HS DAT; Protocol Last Admin: 10/08/18 23:27 Dose: 2 mg Clozapine (Clozaril) 50 mg PO QAM DAT; Protocol Last Admin: 10/09/18 09:39 Dose: 50 mg Clozapine (Clozaril) 100 mg PO 1400 DAT; Protocol Last Admin: 10/09/18 13:36 Dose: 100 mg Diphenhydramine HCl (Benadryl) 50 mg IM Q6H PRN PRN Reason: Anxiety Last Admin: 10/09/18 01:50 Dose: 50 mg Fluoxetine HCl (Prozac) 40 mg PO DAILY [facility] Folic Acid (Folic Acid) 1 mg PO DAILY [facility] Last Admin: 10/09/18 08:23 Dose: 1 mg Gabapentin (Neurontin) 300 mg PO DAILY [facility]; Protocol Last Admin: 10/09/18 08:25 Dose: 300 mg Home Med (Home Med) 0.8 unit SC Q2W [facility] Last Admin: 09/17/18 21:25 Dose: 0.8 unit Levothyroxine Sodium (Synthroid) 100 mcg PO 0600 [facility] Last Admin: 10/09/18 08:25 Dose: 100 mcg Lorazepam (Ativan) 2 mg IM Q6 PRN; Protocol PRN Reason: Agitation Last Admin: 10/09/18 01:50 Dose: 2 mg Lorazepam (Ativan) 2 mg PO Q6H PRN; Protocol PRN Reason: anxiety/agitation Last Admin: 10/08/18 05:59 Dose: 2 mg Magnesium Oxide (Mag-Ox) 400 mg PO BID [facility] Last Admin: 10/09/18 08:24 Dose: 400 mg Metoprolol Tartrate (Lopressor) 25 mg PO BRKDIN [facility] Last Admin: 10/09/18 13:37 Dose: 25 mg Pantoprazole Sodium (Protonix Ec Tab) 40 mg PO 0600 [facility] Last Admin: 10/09/18 08:25 Dose: 40 mg Saliva Substitute (Saliva Substitute) 0 ml PO TID PRN PRN Reason: Dry mouth Last Admin: 10/04/18 13:41 Dose: 1 ml Valproate Sodium (Depakene Oral Soln) 250 mg PO BID [facility] Last Admin: 10/09/18 08:26 Dose: 250 mg Valproate Sodium (Depakene Oral Soln) 500 mg PO HS [facility] Last Admin: 10/08/18 23:26 Dose: 500 mg Zolpidem Tartrate (Ambien) 5 mg PO HS [facility]; Protocol - Labs Labs: 10/09/18 09:30 10/01/18 07:50
--- NOTE | 2018-10-09 22:18 | PN ---
DATE: 10/09/2018 SUBJECTIVE: The patient is in bed in no acute distress. PHYSICAL EXAMINATION VITAL SIGNS: Temperature is 97, blood pressure is 140/100, respiratory rate 22, heart rate of 102. HEENT: Examination of HEENT is unremarkable. NECK: Supple. CARDIOPULMONARY: Normal S1, S2. LUNGS: Have decreased breath sounds. ABDOMEN: Soft. LABORATORY DATA: Laboratory examination reveals a white count of 5.4, hemoglobin of 11, platelets of 337. Chemistry, BUN of 16, creatinine of 1.1. Urinalysis is noted. Serology HIV is negative. RPR is noted. Urine cultures noted to be Enterococcus. Review of orders. ASSESSMENT AND PLAN: This is a 48-year-old female with asymptomatic bacteriuria with Enterococcus faecalis, hypertension, breast cancer status post radiation therapy, psychosis, dyslipidemia. Currently off antibiotics. We will follow with you. Scotty James MD
[2018-10-10 08:48] LABS: BLOOD UREA NITROGEN 12 mg/dL (7-21); GFR NON-AFRICAN AMERICAN > 60
[2018-10-10] MEDS: Levothyroxine 100 MCG TAB PO SCH (09:41)
[2018-10-10] MEDS: Pantoprazole 40 mg EC Tab PO SCH (09:42)
[2018-10-10] MEDS: Magnesium Oxide 400 mg Tab UD PO SCH ×2 (09:42→17:58)
[2018-10-10] MEDS: Valproic Acid 250 mg/5 ml UD Cup PO SCH ×2 (09:43→17:59)
[2018-10-10] MEDS: Bacitracin Ointment 30 GM TUBE TOP SCH ×2 (11:33→17:48)
--- NOTE | 2018-10-10 11:33 | PCM.BM ---
<SebasNabil - Last Filed: 10/10/18 11:31> Treatment Plan Problems - Problems identified on initial assessmt DELUSIONS Date Initiated: 09/12/18 (NEEDS TO PUNISH HERSELF ) Time Initiated: 16:27 Assessment reference: HP, NA, Other Status: Active THOUGHT PROCESS ALTERATION Date Initiated: 09/12/18 (COPROPHAGIA) Time Initiated: 16:28 Assessment reference: HP, NA Status: Active ALTERATION IN EMOTIONAL STATUS Date Initiated: 09/12/18 Time Initiated: 16:29 Assessment reference: HP, Other Status: Active Treatment assets and liabiliti Patient Assests: adapts well, good support system, strong justin Patient Liabilities: medical problems, other (CHRON[facility] CHARACTER OF THE PROBLEM ) - Milieu Protocol Maintain good personal hygiene: daily Encourage regular showers, daily Remind patient to perform daily oral care, daily Assist patient to perform ADL's Maintain personal safety: daily Educate patient to report safety concerns to staff, daily Monitor environment for contraband/sharps Medication safety: Monitor for expected outcome, potential side effects: daily, Assess barriers to learning: daily, Assess readiness for medication education: daily Milieu Narrative: group, milieu and supportive tx (as tolerated) Clozaril 50mg po daily and 100 mg po hs, will titrate accordingly Prozac 40 mg daily for depression and anxiety klonopin 2mg po bid and hs for anxiety and akathesia seroquel will be discontinued today Twila Mainryanna was provided to patient on 09/08/18 Thorazine 50mg po and IM prn ECT might be helpful, at the same time patient lacks capacity to make decision about this procedure and now,, patient does not have power of consumer attorney new UTI, ID and oncology involved SW consultation for discharge plan and social issues Family involvement, pt wanted her to participate in her care family meeting took place 09/19/18 [facility] with eeduyzkiedyc08/6/2018 stat Patient is registered clozaril [facility] Follow up on labs Will monitor closely Pt was educated about risk/benefits and alternatives of medications, coping strategies (safety plan, suicide prevention), relapse prevention, importance of follow up with psychiatrist and therapist, stay away from drugs/alcohol/smoking Family Contact Family involvement: Family/SO is involved - Outside Agency [facility] Care involvment: Information-sharing Agency contact name: [facility] Agency contact number: [phone] [facility] Care involvment: Information-sharing Agency contact name: [facility] contact number: [phone] Discharge/Continuing Care - Education Needs Education Needs: Patient Medication, Patient Diagnosis/Disease Process, Patient Placement options, Patient Community resources, Patient Activities of Daily Living, Patient Health Practices/Safety, Patient Personal Hygiene/Grooming, Patient Aftercare Safety Plan - Discharge Discharge Criteria: Tolerates medication w/o severe side effects, Free of Suicidal thoughts, Normal sleep pattern, Other Discharge to:: Home - Treatment Team Participation Patient/Family/SO Statement: group, milieu and supportive tx (as tolerated) Clozaril 50mg po daily and 100 mg po hs, will titrate accordingly Prozac 40 mg daily for depression and anxiety klonopin 2mg po bid and hs for anxiety and akathesia seroquel will be discontinued today Twila Hartman was provided to patient on 09/08/18 Thorazine 50mg po and IM prn ECT might be helpful, at the same time patient lacks capacity to make decision about this procedure and now,, patient does not have power of consumer attorney new UTI, ID and oncology involved SW consultation for discharge plan and social issues Family involvement, pt wanted her to participate in her care family meeting took place 09/19/18 [facility] with gozzedtkjmoy82/6/2018 stat Patient is registered clozaril [facility] Follow up on labs Will monitor closely Pt was educated about risk/benefits and alternatives of medications, coping strategies (safety plan, suicide prevention), relapse prevention, importance of follow up with psychiatrist and therapist, stay away from drugs/alcohol/smoking Treatment Plan Review - Problem DELUSIONS Time Initiated: 16:27 Progress toward outcomes: unchanged THOUGHT PROCESS ALTERATION Time Initiated: 16:28 Progress toward outcomes: unchanged ALTERATION IN EMOTIONAL STATUS Time Initiated: 16:29 Progress toward outcomes: unchanged - Discharge / Continuing Care Discharge to:: With Family <Carolyn Ross - Last Filed: 10/10/18 13:14> - Diagnosis (1) Schizoaffective disorder Status: Acute Interventions: 10/10/18 13:14 pt is slowly improving currently on clozaril, will titrate it accordingly potentially pt could benefit from ECT pt does not have POA and currently lacks capacity to make decision about ECT or POA will monitor closely will continue 1:1 <Evie Rodriguez - Last Filed: 10/10/18 17:13> Family Contact Family involvement: Family/SO is involved
[2018-10-10] MEDS ORDERED: DiphenhydrAMINE 50 mg/ml Inj IM STA (12:15)
--- NOTE | 2018-10-10 13:38 | PCM.PYCHPN ---
Psychiatric Progress Note - Psychiatric Progress Note Patient seen today, length of contact: 30 minutes Patient Chief Complaint: "I know my is cheating on me, he has another woman, one is to have fun and me to stay home, clean and raise kids...' Problems Identified/Issues Discussed: this writer producer attempted to discuss suicide/ homicide prevention, past psychiatric h/o, current psychiatric symptoms, medical problems, risk/benefits and alternatives of medications, medications compliance, coping strategies, substance abuse h/o, relapse prevention, importance of follow up with psychiatrist and therapist, discharge plan. Medical Problems: pt was dehydrated, but doing better dysphagia is better UTI, patient completed course of antibiotics urine analysis showed leukocyte esterase again on 10/01/2018, Infectious disease wants to observe patient without antibiotics, discussed with 10/10/18 will call for neurology consult to rule out organic causes of pt's presentation, pt is not improving for the past 3weeks CT scan at the time of admission 09/14/18 was WNL. Diagnostic Results: 09/14/18 09:10 09/15/18 08:00 Lab Results 09/15/18 08:00: Sodium 140, Potassium 4.0, Chloride 102, Carbon Dioxide 28, Anion Gap 14, BUN 15, Creatinine 1.2, Est GFR ( Amer) 58, Est GFR (Non-Af Amer) 48, Random Glucose 97, Calcium 9.8 09/14/18 17:40: Urine Color Yellow, Urine Appearance Sl cloudy, Urine pH 6.0, Ur Specific [place] 1.010, Urine Protein Negative, Urine Glucose (UA) Negative, Urine Ketones Negative, Urine Blood Small H, Urine Nitrate Positive H, Urine Bilirubin Negative, Urine Urobilinogen 0.2, Ur Leukocyte Esterase Small H, Urine RBC 5 - 10, Urine WBC 20 - 25, Ur Epithelial Cells 10 - 12, Urine Bacteria Many 09/14/18 09:10: RPR Nonreactive 09/14/18 09:10: TSH 3rd Generation 5.59 H 09/14/18 09:10: Sodium 140, Potassium 4.0, Chloride 104, Carbon Dioxide 21, Anion Gap 18, BUN 15, Creatinine 1.6 H, Est GFR ( Amer) 42, Est GFR (Non- Af Amer) 35, Random Glucose 85, Calcium 10.0, Phosphorus 2.8, Magnesium 1.6 L, Total Bilirubin 0.5, AST 89 H D, ALT 57 H, Alkaline Phosphatase 88, Total Protein 8.0, Albumin 4.4, Globulin 3.6, Albumin/Globulin Ratio 1.2, Triglycerides 102, Cholesterol 234 H, LDL Cholesterol Direct 155 H, HDL Cholesterol 60 09/14/18 09:10: WBC 4.7 D, RBC 4.39, Hgb 12.4, Hct 37.8, MCV 86.1, MCH 28.2, MCHC 32.8, RDW 16.4 H, Plt Count 360, MPV 9.4, Gran % 50.8, Lymph % (Auto) 34.7, [place] % (Auto) 13.4 H, Eos % (Auto) 0.9 L, Baso % (Auto) 0.2, Gran # 2.39, Lymph # (Auto) 1.6, [place] # (Auto) 0.6, Eos # (Auto) 0.0, Baso # (Auto) 0.01 Microbiology 09/14/18 17:40 Urine Urine Culture - Preliminary Gram Negative [facility] Laboratory Results - last 24 hr 09/19/18 09:55 WBC 4.5 RBC 4.35 Hgb 12.2 Hct 38.3 MCV 88.0 MCH 28.0 MCHC 31.9 RDW 16.6 H Plt Count 318 MPV 9.6 Gran % 54.3 Lymph % (Auto) 30.0 [place] % (Auto) 14.8 H Eos % (Auto) 0.7 L Baso % (Auto) 0.2 Gran # 2.43 Lymph # (Auto) 1.3 [place] # (Auto) 0.7 H Eos # (Auto) 0.0 Baso # (Auto) 0.01 Abnormal Lab Results 09/22/18 09/22/18 07:30 07:30 WBC 3.4 L D RBC 4.34 Hgb 12.2 Hct 37.4 MCV 86.2 MCH 28.1 MCHC 32.6 RDW 16.5 H Plt Count 373 MPV 9.7 Sodium 141 Potassium 5.0 Chloride 107 Carbon Dioxide 25 Anion Gap 14 BUN 18 Creatinine 1.5 H Est GFR ( Amer) 45 Est GFR (Non-Af Amer) 37 Random Glucose 98 Calcium 10.2 Laboratory Results - last 72 hr 09/25/18 14:47 POC Glucose (mg/dL) 94 Vital Signs Temp Pulse Resp BP Pulse Ox 09/27/18 16:00 52 L 108/81 09/27/18 08:40 84 122/67 09/27/18 07:00 97.3 F L 84 18 122/67 09/26/18 08:04 121 H 136/114 H 09/26/18 07:26 98.2 F 54 L 22 136/114 H 09/25/18 09:08 80 124/70 09/24/18 16:00 93 H 112/74 09/24/18 09:17 97/50 L 09/24/18 07:20 97.1 F L 82 16 97/50 L 09/24/18 07:18 97.1 F L 82 20 97/50 L 09/23/18 16:00 86 110/67 09/23/18 06:49 97.7 F 77 20 114/69 09/22/18 16:00 83 103/57 L 09/22/18 12:26 97 H 110/72 09/21/18 10:21 90 116/71 09/21/18 10:15 98.4 F 90 20 116/71 99 09/20/18 15:45 100 H 95/70 L 09/20/18 10:04 93 H 146/96 H 09/20/18 06:48 98.1 F 79 16 98/60 L 09/19/18 16:00 60 116/88 09/19/18 07:28 97.3 F L 91 H 20 115/75 09/17/18 15:00 73 H 128/106 H 09/17/18 09:30 68 116/62 09/17/18 07:25 97.1 F L 80 18 92/58 L 09/16/18 16:00 102 H 120/81 09/16/18 09:47 104 H 124/99 H 09/16/18 07:17 98.0 F 87 18 98/59 L 09/15/18 09:07 103 H 106/70 09/15/18 07:00 97.8 F 105 H 19 86/60 L 09/14/18 16:28 90 139/118 H 09/14/18 07:00 97.9 F 60 17 115/72 09/13/18 08:30 114 H 20 129/100 H 09/13/18 07:00 98.5 F 55 L 22 169/114 H 09/13/18 06:50 55 L 169/114 H 09/12/18 16:11 97.2 F L 80 20 114/64 09/12/18 15:39 20 Abnormal Lab Results 09/29/18 19:14 WBC 4.8 RBC 4.34 Hgb 12.3 Hct 38.4 MCV 88.5 MCH 28.3 MCHC 32.0 RDW 16.7 H Plt Count 261 MPV 10.7 Gran % 39.9 L Lymph % (Auto) 42.0 H [place] % (Auto) 15.8 H Eos % (Auto) 1.9 Baso % (Auto) 0.4 Gran # 1.90 Lymph # (Auto) 2.0 [place] # (Auto) 0.8 H Eos # (Auto) 0.1 Baso # (Auto) 0.02 Abnormal Lab Results 10/01/18 10/01/18 10/01/18 07:50 07:50 07:50 WBC 3.2 L D RBC 4.39 Hgb 12.2 Hct 38.8 MCV 88.4 MCH 27.8 MCHC 31.4 RDW 16.7 H Plt Count 280 MPV 9.9 Sodium 141 Potassium 4.2 Chloride 108 H Carbon Dioxide 28 Anion Gap 10 BUN 16 Creatinine 1.1 Est GFR ( Amer) > 60 Est GFR (Non-Af Amer) 53 Random Glucose 98 Calcium 9.5 Thyroxine (T4) 8.4 TSH 3rd Generation 1.86 Cortisol AM Sample 10/01/18 07:50 WBC RBC Hgb Hct MCV MCH MCHC RDW Plt Count MPV Sodium Potassium Chloride Carbon Dioxide Anion Gap BUN Creatinine Est GFR ( Amer) Est GFR (Non-Af Amer) Random Glucose Calcium Thyroxine (T4) TSH 3rd Generation Cortisol AM Sample 19.5 Temp Pulse Resp BP Pulse Ox 97.9 F 113 H 20 105/72 99 10/03/18 07:17 10/03/18 09:46 10/03/18 07:17 10/03/18 09:46 09/21/18 10:15 Microbiology 10/06/18 12:17 Urine Culture - Final Urine Enterococcus Faecalis Temp Pulse Resp BP Pulse Ox 97.9 F 102 H 22 143/120 H 99 10/09/18 07:36 10/09/18 08:25 10/09/18 07:36 10/09/18 08:25 09/21/18 10:15 Laboratory Results - last 24 hr 10/09/18 09:30 WBC 5.4 D RBC 4.09 Hgb 11.3 L Hct 36.0 MCV 88.0 MCH 27.6 MCHC 31.4 RDW 16.8 H Plt Count 337 MPV 9.8 Gran % 63.5 Lymph % (Auto) 22.0 [place] % (Auto) 12.4 H Eos % (Auto) 1.9 Baso % (Auto) 0.2 Gran # 3.43 Lymph # (Auto) 1.2 [place] # (Auto) 0.7 H Eos # (Auto) 0.1 Baso # (Auto) 0.01 No signs of a granulocytosis Temp Pulse Resp BP Pulse Ox 97.9 F 63 20 128/91 H 99 10/10/18 07:31 10/10/18 09:43 10/10/18 07:31 10/10/18 09:43 09/21/18 10:15 DSM 5 Symptoms Update: Patient is a 48-year-old [place] female with a psychiatric history of Schizoaffective disorder, multiple prior psychiatric admissions both in [place] and the [place]~ most recently hospitalized at [facility] x6 months ago, who was transferred from the medical floor after being treated from 09/10/18-09/12/18 for dysphagia. Pt was presented with depression, disorganization, paranoia, taoism preoccupation as well as bizarre behavior. On the medical floor patient required 1:1 because she was caught drinking her urine out of the toilet. Patient was trying to punish herself because she didn't deserve to live. Patient attends outpatient psychiatric treatment of [facility]. Her most recent follow up was on September 08, 2018. Patient has been compliant with Abilify 10 mg daily, Prozac 10 mg daily Seroquel 100 mg BID as well as Abilify Maintenna last injected September 08, 2018. Patient was seen at the treatment team meeting utilized translation line Voe [id number] for interpretation. there are some improvements with pt's presentation, pt as per report from nursing staff patient slept through the night, was doing relatively well at the morning, pt received a phone call from her at am and after that was agitated. pt was seen and examined, pt was able to give some coherent and more logical history, but patient presented to be paranoid, was saying that she is convinced that he is cheating on her, pt was in distress, pt was provided emotional support and empathic listening but was not receptive, pt was crying, yelling, refused to leave the room, then started to hit a table with her fist, pt required Haldol 3mg+[id number]+Benadryl 50 IM. Pt's seems to be supportive, visiting pt daily. This writer producer will discontinue Seroquel, increase Clozaril, CBC with differential showed no signs of agranulocytosis. discussed with ID 10/10/18, wants to observe patient with no antibiotics. will call neurology consult considering the fact pt had ECT in the past, most likely pt knows what is this procedure about, this writer producer had prolonged conversation with pt's , was willing pt to have ECT, but he is not her POA, now pt does not have a capacity to point anyone to be her POA, as well as for ECT. clozaril was started 10/01/18, pt is currently on 100mg po daily today will increase to 100 mg at 4 PM. 10/02/18 discussed with , pt is dx with UTI with e.Fecalis. Hem/onc was involved because pt has h/o breast cancer, was on humira. Pt might benefit from ECT because pt responded well back in [place], but now pt lacks capacity to sign consent for treatment. Diagnostic Results: Schizoaffective Disorder Medication Change: Yes (clozaril increased, depakote increased) Medical Record Reviewed: Yes Consults ordered or reviewed: patient was seen by medical team as well as nephrology team see notes for more detailed information pt was seen by Hem/Onc pt was seen by ID team Neurology will be involved Mental Status Examination - Cognitive Function Orientation: Place Memory: Impaired Attention: Poor Concentration: Poor Association: Loose Fund of Knowledge: Poor - Mood Mood: Depressed ("I am afraid"), Anxious - Affect Affect: Constricted (labile, agitated, histrionic) - Speech Speech: Appropriate - Formal Thought Process Formal Thought Process: Hallucinations, Delusions, Paranoia, Loosening of associations - Suicidal Ideation Suicidal Ideation: No - Homicidal Ideation Homicidal Ideation: No Goal/Treatment Plan - Goal/Treatment Plan Need for Continued Stay: Remain at risks for inpatient hospitalization, Severe depression anxiety, Discharge may exacerbated symptoms, Severe functional impairment Progress Toward Problem(s) and Goals/Treatment Plan: group, milieu and supportive tx (as tolerated) Clozaril 100 mg po daily and 100 mg po hs, will titrate accordingly Prozac 40 mg daily for depression and anxiety klonopin 2mg po bid and hs for anxiety and akathesia seroquel discontinued 10/09/2018 Twila Brownena was provided to patient on 09/08/18, no plan to resume Thorazine 50mg po and IM prn ECT might be helpful, at the same time patient lacks capacity to make decision about this procedure and now,, patient does not have power of staff attorney new UTI, ID and oncology involved SW consultation for discharge plan and social issues Family involvement, pt wanted her to participate in her care family meeting took place 09/19/18 CBC with [id number]/6/2018 no signs of a granulocytosis Patient is registered clozaril [facility] Follow up on labs Will monitor closely Pt was educated about risk/benefits and alternatives of medications, coping strategies (safety plan, suicide prevention), relapse prevention, importance of follow up with psychiatrist and therapist, stay away from drugs/alcohol/smoking Estimated Date of D/C: 10/15/18
--- NOTE | 2018-10-10 14:21 | PN ---
DATE: 10/09/2018 SUBJECTIVE: The patient is sedated. She is able to communicate. She still have different different subjects; however, she is less aggressive and seems calmer than before and less than before. PHYSICAL EXAMINATION: VITAL SIGNS: Temperature 98, heart rate 80, blood pressure 121/92, and respirations 20. HEAD AND NECK: Normal. No JVD. No thyromegaly. CHEST: Clear bilaterally. CARDIAC: First sound and second sound are normal. ABDOMEN: Soft, obese, nontender. EXTREMITIES: No edema. NEUROLOGIC: Normal. LABORATORY DATA: White count 5.4, hemoglobin 11.2, hematocrit 36, platelets 337. Chemistry: Her sodium 143, potassium 3.9, chloride 107, bicarb 32, BUN 12, creatinine 0.8, blood sugar 105, calcium 9. IMPRESSION: 1. Schizoaffective disorder. Continue psych treatment. 2. The patient gets agitated, blood pressure shoot up to higher level and become tachycardiac. We will get discussions with Nephrology about any etiology that could explain the high pressure associated with worsening psychosis. We will get some serum level of epinephrine/norepinephrine. We will follow up with the chemical production machine operator about it. 3. 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 Breast carcinoma was status post mastectomy, right side, with lymphedema, received chemotherapy more than 10 or 15 years ago. PLAN: Continue current therapy. Follow up clinically. Igor Ca MD
[2018-10-11] MEDS: Valproic Acid 250 mg/5 ml UD Cup PO SCH ×4 (03:33→22:29)
[2018-10-11] MEDS: Magnesium Oxide 400 mg Tab UD PO SCH ×2 (08:26→18:53)
[2018-10-11] MEDS: Levothyroxine 100 MCG TAB PO SCH (08:26)
[2018-10-11] MEDS: Bacitracin Ointment 30 GM TUBE TOP SCH ×2 (08:29→18:30)
[2018-10-11] MEDS: Pantoprazole 40 mg EC Tab PO SCH (08:29)
--- NOTE | 2018-10-11 09:52 | PCM.PYCHPN ---
Psychiatric Progress Note - Psychiatric Progress Note Patient seen today, length of contact: 30 minutes Problems Identified/Issues Discussed: PROGRESS NOTE 10/11/18 I reviewed recent notes, patient is known to this provider from my follow up on the medical floor prior to her transfer to the psychiatric unit as well as multiple interviews during this psychiatric admission. Patient continues to be odd, loud and disorganized with minimal improvement since transfer from medicine. She remains impulsive, requiring 1:1 and a lot of staff support to redirect her behaviors. Her disruptions appear both attention-seeking and psychotic in nature. It is still difficult for staff or this provider to sustain a meaningful interview with her--though there have been many attempts in both Palauan and her [place] language. Her histrionic behaviors persist despite much education and reassurance. She comprehends Palauan however her responses still contain a mixture of Persian and Palauan. Behavior is unpredictable. Diagnostic Results: Schizoaffective Disorder Medication Change: No ( ) Medical Record Reviewed: Yes Mental Status Examination - Cognitive Function Orientation: Place Memory: Impaired Attention: Poor Concentration: Poor Association: Loose Fund of Knowledge: Poor - Mood Mood: Depressed ("I am afraid"), Anxious - Affect Affect: Constricted (labile, agitated, histrionic) - Speech Speech: Appropriate - Formal Thought Process Formal Thought Process: Hallucinations, Delusions, Paranoia, Loosening of associations - Suicidal Ideation Suicidal Ideation: No - Homicidal Ideation Homicidal Ideation: No Goal/Treatment Plan - Goal/Treatment Plan Need for Continued Stay: Remain at risks for inpatient hospitalization, Severe depression anxiety, Discharge may exacerbated symptoms, Severe functional impairment Progress Toward Problem(s) and Goals/Treatment Plan: * group, milieu and supportive tx (as tolerated) * Awaiting neuro consult * Titrate clozaril as tolerated ~Clozaril 100 mg qAM and 100 mg q1400 on 10/11/18 and 10/12/18. ~Clozaril 50 mg AM and 200 mg q1400 on 10/13/18 ~will monitor HR and WBC closely * Twila Hartman was provided to patient on 09/08/18 will not continue. * Depakene 500 mg po BID and 500 mg HS to help with lability and impulse control as well as sleep on the unit. Will check VPA level * Klonopin 1 mg po bid for anxiety and mood control. * Neurontin 300 mg po daily * Prozac 40 mg daily for depression and anxiety * Ambien 5 mg po HS prn: insomnia * thorazine prns for agitation * Considered ECT treatment however patient lacks capacity to make this treatment decision at this time. * Vitals reviewed and noted below: Selected Entries 10/10/18 10/10/18 07:31 09:43 Temperature 97.9 F Pulse Rate 63 63 Respiratory 20 Rate Blood Pressure 128/91 H 128/91 H * Please refer to results from patient's physical exam/ROS/labs in progress notes from her recent admission to the medical floor from 09/10/18-09/12/18, as well as ER ROS and physical exam on 09/09/18 Estimated Date of D/C: 10/15/18
[2018-10-11] MEDS: DiphenhydrAMINE 50 mg/ml Inj IM PRN (22:46)
[2018-10-12] MEDS: Pantoprazole 40 mg EC Tab PO SCH ×2 (07:12→08:06)
[2018-10-12] MEDS: Levothyroxine 100 MCG TAB PO SCH ×2 (07:13→08:05)
[2018-10-12] MEDS: Bacitracin Ointment 30 GM TUBE TOP SCH ×2 (08:04→15:08)
[2018-10-12] MEDS: Magnesium Oxide 400 mg Tab UD PO SCH ×2 (08:05→15:07)
--- NOTE | 2018-10-12 09:00 | PCM.PYCHPN ---
Psychiatric Progress Note - Psychiatric Progress Note Patient seen today, length of contact: 30 minutes Problems Identified/Issues Discussed: PROGRESS NOTE 10/12/18 I reviewed recent notes, patient is known to this provider from my follow up on the medical floor prior to her transfer to the psychiatric unit as well as multiple interviews during this psychiatric admission. Patient continues to be odd, loud and disorganized with minimal improvement since transfer from medicine. She remains impulsive, requiring 1:1 and a lot of staff support to redirect her behaviors. Her disruptions appear both attention-seeking and psychotic in nature. She continues to needs prns during the day. It is still difficult for staff or this provider to sustain a meaningful interview with her--though there have been many attempts in both Bhutanese and her [place] language of Nepali. Her histrionic behaviors persist despite much education and reassurance. She comprehends Bhutanese however her responses still contain a mixture of Nepali and Bhutanese. Behavior is unpredictable. Diagnostic Results: Schizoaffective Disorder Medication Change: Yes (klonopin decreased) Medical Record Reviewed: Yes Mental Status Examination - Cognitive Function Orientation: Place Memory: Impaired Attention: Poor Concentration: Poor Association: Loose Fund of Knowledge: Poor - Mood Mood: Depressed ("I am afraid"), Anxious - Affect Affect: Constricted (labile, agitated, histrionic) - Speech Speech: Appropriate - Formal Thought Process Formal Thought Process: Hallucinations, Delusions, Paranoia, Loosening of associations - Suicidal Ideation Suicidal Ideation: No - Homicidal Ideation Homicidal Ideation: No Goal/Treatment Plan - Goal/Treatment Plan Need for Continued Stay: Remain at risks for inpatient hospitalization, Severe depression anxiety, Discharge may exacerbated symptoms, Severe functional impairment Progress Toward Problem(s) and Goals/Treatment Plan: * group, milieu and supportive tx (as tolerated) * Awaiting neuro consult * Titrate clozaril as tolerated ~Clozaril 100 mg qAM and 100 mg q1400 on 10/11/18 and 10/12/18. ~Clozaril 50 mg AM and 200 mg q1400 on 10/13/18 ~will monitor HR and WBC closely * Twila Hartman was provided to patient on 09/08/18 will not continue. * Depakene 500 mg po BID and 500 mg HS to help with lability and impulse control as well as sleep on the unit. Awaiting VPA level * Klonopin 1 mg po bid decreased to 0.5 mg AM and 1 mg HS on 10/12/18 to further reduce possibility of disinhibition and benzo delirium. * Neurontin 300 mg po daily * Prozac 40 mg daily for depression and anxiety * Ambien 5 mg po HS prn: insomnia * thorazine prns for agitation * Considered ECT treatment however patient lacks capacity to make this treatment decision at this time. * Vitals reviewed and noted below: Selected Entries 10/11/18 10/11/18 10/11/18 07:19 08:26 19:10 Temperature 98.0 F Pulse Rate 104 H 104 H 82 Respiratory 20 Rate Blood Pressure 100/78 100/78 111/66 10/11/18 22:46 Temperature Pulse Rate 82 Respiratory Rate Blood Pressure 116/72 * Please refer to results from patient's physical exam/ROS/labs in progress notes from her recent admission to the medical floor from 09/10/18-09/12/18, as well as ER ROS and physical exam on 09/09/18 Estimated Date of D/C: 10/15/18
[2018-10-12] MEDS: Valproic Acid 250 mg/5 ml UD Cup PO SCH ×3 (13:14→21:47)
--- NOTE | 2018-10-12 15:53 | CP.PCM.CON ---
History of Present Illness - History of Present Illness History of Present Illness: Neurology consult completed. Please see dictation for further details. IN brief, the following is recommended: 1. MRI BRain with jose 2. EEG Thank you Dr. perez Past Patient History - Infectious Disease Hx of Infectious Diseases: None - Tetanus Immunizations Tetanus Immunization: Unknown - Past Medical History & Family History Past Medical History?: Yes - Past Social History Alcohol: None Drugs: Denies Home Situation {Lives}: With Family (Please refer to results from patient's physical exam/ROS/labs in progress notes from her recent admission to the medical floor from 09/10/18-09/12/18, as well as ER ROS and physical exam on 09/09/18) - CARDIAC Hx Cardiac Disorders: No Hx Pacemaker: No - PULMONARY Hx Respiratory Disorders: No - NEUROLOGICAL Hx Neurological Disorder: No Hx Paralysis: No - HEENT Hx HEENT Problems: No - RENAL Hx Chronic Kidney Disease: No - ENDOCRINE/METABOLIC Hx Endocrine Disorders: Yes Hx Hyperthyroidism: Yes - HEMATOLOGICAL/ONCOLOGICAL Hx Blood Disorders: No Hx Blood Transfusions: No Hx Blood Transfusion Reaction: No - INTEGUMENTARY Hx Dermatological Problems: No - MUSCULOSKELETAL/RHEUMATOLOGICAL Hx Musculoskeletal Disorders: Yes - GASTROINTESTINAL Hx Gastrointestinal Disorders: No - GENITOURINARY/GYNECOLOGICAL Hx Genitourinary Disorders: Yes (C/S X 1) - PSYCHIATRIC Hx Psychophysiologic Disorder: No Hx Anxiety: No Hx Bipolar Disorder: No Hx Depression: Yes Hx Emotional Abuse: No Hx Hallucinations: Yes Hx Panic Symptoms: Yes Hx Paranoia: Yes Hx Physical Abuse: No Hx Schizophrenia: Yes Hx Sexual Abuse: No Hx Substance Use: No - SURGICAL HISTORY Hx Surgeries: Yes (SKIN GRAFT TAKEN FROM THIGH FOR RIGHT BREAST SX.C/S X 1) - ANESTHESIA Hx Anesthesia: Yes Hx Anesthesia Reactions: No Hx Malignant Hyperthermia: No Meds Allergies/Adverse Reactions: Allergies Allergy/AdvReac Type Severity Reaction Status Date / Time vancomycin AdvReac Intermediate ITCHING Verified 09/13/18 01:45 - Medications Medications: Current Medications Acetaminophen (Tylenol 325mg Tab) 650 mg PO Q6H PRN PRN Reason: Pain, moderate (4-7) Bacitracin (Bacitracin) 1 gm TOP BID DAT Last Admin: 10/12/18 15:08 Dose: 1 oin Chlorpromazine (Thorazine) 50 mg IM Q6H PRN; Protocol PRN Reason: Agitation Last Admin: 10/12/18 15:02 Dose: 50 mg Chlorpromazine (Thorazine) 50 mg PO Q6H PRN; Protocol PRN Reason: psychosis/agitation Last Admin: 10/11/18 05:28 Dose: 50 mg Clonazepam (Klonopin) 1 mg PO HS [facility]; Protocol Clonazepam (Klonopin) 0.5 mg PO QAM [facility]; Protocol Last Admin: 10/12/18 13:15 Dose: 0.5 mg Clozapine (Clozaril) 100 mg PO 1400 [facility]; Protocol Last Admin: 10/12/18 13:14 Dose: 100 mg Clozapine (Clozaril) 100 mg PO QAM [facility]; Protocol Last Admin: 10/12/18 10:14 Dose: 100 mg Diphenhydramine HCl (Benadryl) 50 mg IM Q6H PRN PRN Reason: Anxiety Last Admin: 10/11/18 22:46 Dose: 50 mg Diphenhydramine HCl (Benadryl) 50 mg PO Q6 PRN PRN Reason: Agitation Last Admin: 10/11/18 05:28 Dose: 50 mg Fluoxetine HCl (Prozac) 40 mg PO DAILY [facility] Last Admin: 10/12/18 08:06 Dose: 40 mg Folic Acid (Folic Acid) 1 mg PO DAILY [facility] Last Admin: 10/12/18 08:05 Dose: 1 mg Gabapentin (Neurontin) 300 mg PO DAILY [facility]; Protocol Last Admin: 10/12/18 08:06 Dose: 300 mg Home Med (Home Med) 0.8 unit SC Q2W [facility] Levothyroxine Sodium (Synthroid) 100 mcg PO 0600 [facility] Last Admin: 10/12/18 08:05 Dose: 100 mcg Magnesium Oxide (Mag-Ox) 400 mg PO BID [facility] Last Admin: 10/12/18 15:07 Dose: 400 mg Metoprolol Tartrate (Lopressor) 25 mg PO BRKDIN [facility] Last Admin: 10/12/18 09:12 Dose: Not Given Pantoprazole Sodium (Protonix Ec Tab) 40 mg PO 0600 [facility] Last Admin: 10/12/18 08:06 Dose: 40 mg Saliva Substitute (Saliva Substitute) 0 ml PO TID PRN PRN Reason: Dry mouth Last Admin: 10/04/18 13:41 Dose: 1 ml Valproate Sodium (Depakene Oral Soln) 500 mg PO HS [facility] Last Admin: 10/11/18 22:29 Dose: 500 mg Valproate Sodium (Depakene Oral Soln) 500 mg PO BID DAT Last Admin: 10/12/18 15:03 Dose: 500 mg Zolpidem Tartrate (Ambien) 5 mg PO HS [facility]; Protocol Last Admin: 10/11/18 22:29 Dose: 5 mg Results - Vital Signs Recent Vital Signs: Last Vital Signs Temp 98.0 F 10/11/18 07:19 Pulse 82 10/11/18 22:46 Resp 20 10/11/18 07:19 BP 116/72 10/11/18 22:46 Pulse Ox 99 09/21/18 10:15 - Labs Result Diagrams: 10/09/18 09:30 10/10/18 08:00
[2018-10-12] MEDS: DiphenhydrAMINE 50 mg/ml Inj IM PRN ×2 (17:11→22:20)
--- NOTE | 2018-10-13 01:35 | PN ---
DATE: 10/12/2018 SUBJECTIVE: Yomaira Will is in psych floor. She is still moving around, agitation and followed by medication for sedation. She was sleep for few hours and she started getting up and move around. She has no chest pain. No shortness of breath. No respiratory distress. She still has disorganized thoughts of irrelevant. Please be advised this noted for 10/11/2018. PHYSICAL EXAMINATION: VITAL SIGNS: Her temperature 98, heart rate 82, blood pressure 111/66, and respirations 20. HEAD AND NECK: Normal. No JVD. No thyromegaly. CHEST: Clear bilateral. CARDIAC: First sound and second sound are normal. ABDOMEN: Soft, obese, nontender. EXTREMITIES: No edema, but upper extremity lymphedema from previous mastectomy. LABORATORY DATA: None. IMPRESSION AND PLAN: 1. Schizoaffective disorder with periods of agitations and depression. Continue current medications. She is on Clozaril now, Depakote, Ambien. Klonopin, she is getting 0.5 mg in the morning and 1 mg at night, plus Prozac 40 mg daily. Also, the patient is getting Thorazine 50 mg intramuscularly every 6 hours as needed. 2. The patient does have history of hypertension, stable. Continue metoprolol 25 mg twice a day. She is off Inderal. The patient also has some dysphagia, which is radiation related. 3. Hypothyroidism. 4. 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 5. History of urinary tract infection, resolved. Plan continue current therapy. I do notice Enterococcus fecalis. She is allergic to vancomycin now. We will get Dr. James to evaluate that. Current medications now: Ambien, Bactroban, Benadryl, Clozaril, Depakote, folic acid, Klonopin, Lopressor, magnesium oxide, Neurontin, Protonix, Prozac, Synthroid, Thorazine, and Tylenol. Igor Ca MD
--- NOTE | 2018-10-13 07:29 | PN ---
DATE: 10/12/2018 SUBJECTIVE: The patient is in bed in no acute distress, nontoxic. No fevers. PHYSICAL EXAMINATION: VITAL SIGNS: Temperature is 98, blood pressure is 100/70, respiratory rate of 18. HEENT: Unremarkable. NECK: Supple. LUNGS: Have decreased breath sounds. HEART: Normal S1 and S2. ABDOMEN: Soft. LABORATORY DATA: Reveals a white count of 5.4, hemoglobin of 11. BUN of 12, creatinine 0.8. Urinalysis is noted. Serology is reviewed. Microbiology is noted and review of orders reveals the patient is off of antibiotics... ASSESSMENT AND PLAN: This is a 48-year-old female who was seen earlier today in the psychiatric [facility]. The patient basically has asymptomatic bacteriuria although she has Enterococcus faecalis in the urine. She has no symptoms requiring no treatment at this time. The patient is with a history of breast cancer, hypertension, radiation, dyslipidemia, and psychosis. Review of orders confirms the patient will be off of antibiotics. No antibiotics indicated at this time for asymptomatic bacteriuria. Scotty James MD
--- NOTE | 2018-10-13 07:48 | PN ---
DATE: 10/11/2018 SUBJECTIVE: The patient was seen earlier this morning in the psychiatric floor. She has no complaints of urinary symptoms. No nausea or vomiting. She has tolerate a diet. PHYSICAL EXAMINATION: VITAL SIGNS: Temperature is 98, blood pressure is 100/70, respiratory rate of 18. HEENT: Unremarkable. NECK: Supple. LUNGS: Decreased breath sounds. HEART: Normal S1, S2. ABDOMEN: Soft. LABORATORY DATA: Reveals a white count is 5.4, hemoglobin of 11. BUN of 12, creatinine of 0.8. Serology is noted. RPR is negative. HIV is negative. Microbiology reveals Enterococcus faecalis in the urine culture. Review of cultures is noted. Review of orders reveals the patient to be off antibiotics. ASSESSMENT AND PLAN: This is a 48-year-old female with asymptomatic bacteriuria Enterococcus faecalis, hypertension, breast cancer status post radiation therapy, psychosis, dyslipidemia, off antibiotics. We will follow with you. Patient development of nosocomial infection. Scotty James MD
[2018-10-13] MEDS: Valproic Acid 250 mg/5 ml UD Cup PO SCH ×3 (09:44→21:36)
[2018-10-13] MEDS: Magnesium Oxide 400 mg Tab UD PO SCH ×2 (09:46→18:28)
[2018-10-13] MEDS: Pantoprazole 40 mg EC Tab PO SCH (09:46)
[2018-10-13] MEDS: Levothyroxine 100 MCG TAB PO SCH (09:51)
[2018-10-13] MEDS: Bacitracin Ointment 30 GM TUBE TOP SCH ×2 (11:40→18:27)
--- NOTE | 2018-10-13 14:13 | CP.PCM.PN ---
Subjective - Date & Time of Evaluation Date of Evaluation: 10/13/18 Time of Evaluation: 14:10 - Subjective Subjective: Neurology Progress Note for Dr. Deleon Patient seen and examined at bedside. No acute overnight events. Patient appears fatigued and according to staff has not been sleeping much. She is able to answer some questioning, but is sometimes tangential. Patient denies CP, SOB, n/v/d, abdominal pain, fever, chills, MTZ, or dizziness. Objective - Vital Signs/Intake and Output Vital Signs (last 24 hours): Temp Pulse Resp BP Pulse Ox 98.0 F 120 H 20 123/80 99 10/11/18 07:19 10/13/18 09:52 10/11/18 07:19 10/13/18 09:52 09/21/18 10:15 - Medications Medications: Current Medications Acetaminophen (Tylenol 325mg Tab) 650 mg PO Q6H PRN PRN Reason: Pain, moderate (4-7) Last Admin: 10/12/18 18:51 Dose: 650 mg Bacitracin (Bacitracin) 1 gm TOP BID DAT Last Admin: 10/13/18 11:40 Dose: Not Given Chlorpromazine (Thorazine) 50 mg IM Q6H PRN; Protocol PRN Reason: Agitation Last Admin: 10/12/18 22:20 Dose: 50 mg Chlorpromazine (Thorazine) 50 mg PO Q6H PRN; Protocol PRN Reason: psychosis/agitation Last Admin: 10/11/18 05:28 Dose: 50 mg Clonazepam (Klonopin) 1 mg PO HS [facility]; Protocol Last Admin: 10/12/18 21:48 Dose: 1 mg Clonazepam (Klonopin) 0.5 mg PO QAM DAT; Protocol Last Admin: 10/13/18 09:45 Dose: 0.5 mg Clozapine (Clozaril) 50 mg PO QAM [facility]; Protocol Last Admin: 10/13/18 09:46 Dose: 50 mg Clozapine (Clozaril) 200 mg PO 1400 [facility]; Protocol Diphenhydramine HCl (Benadryl) 50 mg IM Q6H PRN PRN Reason: Anxiety Last Admin: 10/12/18 22:20 Dose: 50 mg Diphenhydramine HCl (Benadryl) 50 mg PO Q6 PRN PRN Reason: Agitation Last Admin: 10/11/18 05:28 Dose: 50 mg Fluoxetine HCl (Prozac) 40 mg PO DAILY [facility] Last Admin: 10/13/18 09:45 Dose: 40 mg Folic Acid (Folic Acid) 1 mg PO DAILY [facility] Last Admin: 10/13/18 09:46 Dose: 1 mg Gabapentin (Neurontin) 300 mg PO DAILY [facility]; Protocol Last Admin: 10/13/18 09:45 Dose: 300 mg Home Med (Home Med) 0.8 unit SC Q2W [facility] Levothyroxine Sodium (Synthroid) 100 mcg PO 0600 [facility] Last Admin: 10/13/18 09:51 Dose: 100 mcg Magnesium Oxide (Mag-Ox) 400 mg PO BID [facility] Last Admin: 10/13/18 09:46 Dose: 400 mg Metoprolol Tartrate (Lopressor) 25 mg PO BRKDIN [facility] Last Admin: 10/13/18 09:52 Dose: 25 mg Pantoprazole Sodium (Protonix Ec Tab) 40 mg PO 0600 [facility] Last Admin: 10/13/18 09:46 Dose: 40 mg Saliva Substitute (Saliva Substitute) 0 ml PO TID PRN PRN Reason: Dry mouth Last Admin: 10/04/18 13:41 Dose: 1 ml Valproate Sodium (Depakene Oral Soln) 500 mg PO [facility] Last Admin: 10/12/18 21:47 Dose: 500 mg Valproate Sodium (Depakene Oral Soln) 500 mg PO BID [facility] Last Admin: 10/13/18 09:44 Dose: 500 mg Zolpidem Tartrate (Ambien) 5 mg PO [facility]; Protocol Last Admin: 10/12/18 21:47 Dose: 5 mg - Labs Labs: 10/09/18 09:30 10/10/18 08:00 - Constitutional Appears: No Acute Distress - Head Exam Head Exam: NORMAL INSPECTION - Eye Exam Eye Exam: Normal appearance - ENT Exam ENT Exam: Mucous Membranes Moist - Neck Exam Neck Exam: Normal Inspection - Respiratory Exam Respiratory Exam: Clear to Ausculation Bilateral, NORMAL BREATHING PATTERN - Cardiovascular Exam Cardiovascular Exam: REGULAR RHYTHM - GI/Abdominal Exam GI & Abdominal Exam: Soft, Normal Bowel Sounds - Extremities Exam Extremities Exam: Normal Inspection - Back Exam Back Exam: NORMAL INSPECTION - Neurological Exam Neurological Exam: Alert, Awake, CN II-XII Intact - Skin Skin Exam: Normal Color Assessment and Plan - Assessment and Plan (Free Text) Assessment: 48 yo F with PMH of hypertension, Ca breast s/p radiation, and Rt arm lymphedema admitted to psych for schizoaffective disorder. Neurology consulted for altered mental status. Plan: - Delirium likely 2/2 psychosis - Will order MRI brain with and without contrast to r/o mets or any other brain lesion as cause - Ammonia level ordered to r/o hepatic encephalopathy Patient seen and discussed in detail with Dr. Deleon. Richardson Eden DO PGY2
--- NOTE | 2018-10-13 15:31 | PCM.PYCHPN ---
Psychiatric Progress Note - Psychiatric Progress Note Patient seen today, length of contact: 30 minutes Problems Identified/Issues Discussed: PROGRESS NOTE 10/13/18 I reviewed recent notes, patient is known to this provider from my follow up on the medical floor prior to her transfer to the psychiatric unit as well as multiple interviews during this psychiatric admission. Patient continues to be bizarre, loud and disorganized with minimal improvement since transfer from [facility]. She remains impulsive, requiring 1:1 and a lot of staff support to redirect her behaviors. Her disruptions appear both attention-seeking and psychotic in nature. She continues to needs prns because of violent behavior towards staff who try to help. She has also been refusing blood draws. It is still difficult for staff or this provider to sustain a meaningful interview with her--though there have been many attempts in both [place] and her [place] language of [place]. Her histrionic behaviors persist despite much education and reassurance. She comprehends [place] however her responses still contain a mixture of [place] and [place]. Patient is assaultive to staff who try to help herBehavior is unpredictable . Diagnostic Results: Schizoaffective Disorder Medication Change: No ( ) Medical Record Reviewed: Yes Mental Status Examination - Cognitive Function Orientation: Place Memory: Impaired Attention: Poor Concentration: Poor Association: Loose Fund of Knowledge: Poor - Mood Mood: Depressed ("I am afraid"), Anxious - Affect Affect: Constricted (labile, agitated, histrionic) - Speech Speech: Appropriate - Formal Thought Process Formal Thought Process: Hallucinations, Delusions, Paranoia, Loosening of associations - Suicidal Ideation Suicidal Ideation: No - Homicidal Ideation Homicidal Ideation: No Goal/Treatment Plan - Goal/Treatment Plan Need for Continued Stay: Remain at risks for inpatient hospitalization, Severe depression anxiety, Discharge may exacerbated symptoms, Severe functional impairment Progress Toward Problem(s) and Goals/Treatment Plan: * group, milieu and supportive tx (as tolerated) * Appreciate f/u by Dr. Deleon/Dr. Eden~ Will order MRI brain with and without contrast to r/o mets or any other brain lesion as cause. Ammonia level ordered to r/o hepatic encephalopathy. EEG recommended * Titrate clozaril as tolerated ~Clozaril 100 mg qAM and 100 mg q1400 on 10/11/18 and 10/12/18. ~Clozaril 50 mg AM and 200 mg q1400 on 10/13/18 ~will monitor HR and WBC closely * Abilify Maintenna was provided to patient on 09/08/18 will not continue. * Depakene 500 mg po BID and 500 mg HS to help with lability and impulse control as well as sleep on the unit. Awaiting VPA level * Klonopin 1 mg po bid decreased to 0.5 mg AM and 1 mg HS on 10/12/18 to further reduce possibility of disinhibition and benzo delirium. * Neurontin 300 mg po daily * Prozac 40 mg daily for depression and anxiety * Ambien 5 mg po HS prn: insomnia * thorazine prns for agitation * Considered ECT treatment however patient lacks capacity to make this treatment decision at this time. * Vitals reviewed and noted below: Selected Entries 10/11/18 10/11/18 10/11/18 07:19 08:26 19:10 Temperature 98.0 F Pulse Rate 104 H 104 H 82 Respiratory 20 Rate Blood Pressure 100/78 100/78 111/66 10/11/18 22:46 Temperature Pulse Rate 82 Respiratory Rate Blood Pressure 116/72 * Please refer to results from patient's physical exam/ROS/labs in progress notes from her recent admission to the medical floor from 09/10/18-09/12/18, as well as ER ROS and physical exam on 09/09/18 * Recent labs noted below: 10/13/18 13:15 Ammonia 27 Estimated Date of D/C: 10/15/18
[2018-10-14] MEDS: Levothyroxine 100 MCG TAB PO SCH (06:07)
[2018-10-14] MEDS: Pantoprazole 40 mg EC Tab PO SCH (06:07)
--- NOTE | 2018-10-14 09:34 | CP.PCM.PN ---
<Sailaja Polo - Last Filed: 10/14/18 10:41> Subjective - Date & Time of Evaluation Date of Evaluation: 10/14/18 Time of Evaluation: 09:00 - Subjective Subjective: ID Progress Note- Dr. Oneil Patient seen and examined at bedside. No acute overnight events. Patient combative at times with nursing staff. Pt has no acute complaints at this time. Objective - Vital Signs/Intake and Output Vital Signs (last 24 hours): Temp Pulse Resp BP Pulse Ox 97.9 F 88 16 73/49 L 99 10/14/18 06:59 10/14/18 06:59 10/14/18 06:59 10/14/18 06:59 09/21/18 10:15 - Medications Medications: Current Medications Bacitracin (Bacitracin) 1 gm TOP BID DAT Last Admin: 10/13/18 18:27 Dose: Not Given Chlorpromazine (Thorazine) 50 mg IM Q6H PRN; Protocol PRN Reason: Agitation Last Admin: 10/12/18 22:20 Dose: 50 mg Chlorpromazine (Thorazine) 50 mg PO Q6H PRN; Protocol PRN Reason: psychosis/agitation Last Admin: 10/11/18 05:28 Dose: 50 mg Clonazepam (Klonopin) 1 mg PO HS DAT; Protocol Last Admin: 10/13/18 21:37 Dose: 1 mg Clonazepam (Klonopin) 0.5 mg PO QAM DAT; Protocol Last Admin: 10/13/18 09:45 Dose: 0.5 mg Clozapine (Clozaril) 50 mg PO QAM [facility]; Protocol Last Admin: 10/13/18 09:46 Dose: 50 mg Clozapine (Clozaril) 200 mg PO 1400 DAT; Protocol Last Admin: 10/13/18 16:10 Dose: Not Given Diphenhydramine HCl (Benadryl) 50 mg IM Q6H PRN PRN Reason: Anxiety Last Admin: 10/12/18 22:20 Dose: 50 mg Diphenhydramine HCl (Benadryl) 50 mg PO Q6 PRN PRN Reason: Agitation Last Admin: 10/11/18 05:28 Dose: 50 mg Fluoxetine HCl (Prozac) 40 mg PO DAILY DAT Last Admin: 10/13/18 09:45 Dose: 40 mg Home Med (Home Med) 0.8 unit SC Q2W [facility] Levothyroxine Sodium (Synthroid) 100 mcg PO 0600 [facility] Last Admin: 10/14/18 06:07 Dose: 100 mcg Magnesium Oxide (Mag-Ox) 400 mg PO BID [facility] Last Admin: 10/13/18 18:28 Dose: 400 mg Metoprolol Tartrate (Lopressor) 25 mg PO BRKDIN [facility] Last Admin: 10/13/18 18:30 Dose: 25 mg Pantoprazole Sodium (Protonix Ec Tab) 40 mg PO 0600 [facility] Last Admin: 10/14/18 06:07 Dose: 40 mg Saliva Substitute (Saliva Substitute) 0 ml PO TID PRN PRN Reason: Dry mouth Last Admin: 10/04/18 13:41 Dose: 1 ml Valproate Sodium (Depakene Oral Soln) 500 mg PO [facility] Last Admin: 10/13/18 21:36 Dose: 500 mg Valproate Sodium (Depakene Oral Soln) 500 mg PO BID [facility] Last Admin: 10/13/18 18:27 Dose: 500 mg Zolpidem Tartrate (Ambien) 5 mg PO [facility]; Protocol Last Admin: 10/13/18 21:37 Dose: 5 mg - Labs Labs: 10/09/18 09:30 10/10/18 08:00 - Constitutional Appears: No Acute Distress - Head Exam Head Exam: ATRAUMATIC, NORMAL INSPECTION, NORMOCEPHALIC - Eye Exam Eye Exam: EOMI, Normal appearance, PERRL Pupil Exam: NORMAL ACCOMODATION, PERRL - ENT Exam ENT Exam: Mucous Membranes Dry - Respiratory Exam Respiratory Exam: Decreased Breath Sounds - Cardiovascular Exam Cardiovascular Exam: REGULAR RHYTHM, +S1, +S2. absent: Murmur - GI/Abdominal Exam GI & Abdominal Exam: Soft, Normal Bowel Sounds. absent: Tenderness - Extremities Exam Extremities Exam: Full ROM, Normal Capillary Refill, Normal Inspection. absent: Joint Swelling, Pedal Edema - Neurological Exam Neurological Exam: Alert, Awake, CN II-XII Intact, Normal Gait, Oriented x3 - Psychiatric Exam Psychiatric exam: Anxious - Skin Skin Exam: Dry, Intact, Normal Color, Warm Assessment and Plan - Assessment and Plan (Free Text) Assessment: 48 F with a PMHx Stage III Right Breast Cancer s/p right mastectomy with chemoradiation in 2003 and right breast reconstruction 2012, and chronic right arm lymphedema presenting with difficulty swallowing and exacerbation of schizoaffective disorder. Assessment asymptomatic bacteriuria with E. faecalis AMS HTN breast cancer S/P radiation therapy psychosis dyslipidemia Plan continue to monitor off antibiotics, fu with neuro workup for AMS <Manuela Oneild Sathish S - Last Filed: 10/14/18 23:05> Objective - Vital Signs/Intake and Output Vital Signs (last 24 hours): Temp Pulse Resp BP Pulse Ox 97.9 F 99 H 16 124/66 99 10/14/18 06:59 10/14/18 18:43 10/14/18 06:59 10/14/18 18:43 09/21/18 10:15 - Medications Medications: Current Medications Bacitracin (Bacitracin) 1 gm TOP BID DAT Last Admin: 10/14/18 18:51 Dose: Not Given Chlorpromazine (Thorazine) 50 mg IM Q6H PRN; Protocol PRN Reason: Agitation Last Admin: 10/14/18 22:58 Dose: 50 mg Chlorpromazine (Thorazine) 50 mg PO Q6H PRN; Protocol PRN Reason: psychosis/agitation Last Admin: 10/11/18 05:28 Dose: 50 mg Clonazepam (Klonopin) 0.5 mg PO QAM DAT; Protocol Last Admin: 10/14/18 09:51 Dose: 0.5 mg Clonazepam (Klonopin) 0.5 mg PO HS DAT; Protocol Last Admin: 10/14/18 21:27 Dose: 0.5 mg Clozapine (Clozaril) 50 mg PO QAM DAT; Protocol Last Admin: 10/14/18 09:50 Dose: 50 mg Clozapine (Clozaril) 200 mg PO HS DAT; Protocol Diphenhydramine HCl (Benadryl) 50 mg IM Q6H PRN PRN Reason: Anxiety Last Admin: 10/14/18 21:24 Dose: 50 mg Diphenhydramine HCl (Benadryl) 50 mg PO Q6 PRN PRN Reason: Agitation Last Admin: 10/11/18 05:28 Dose: 50 mg Fluoxetine HCl (Prozac) 40 mg PO DAILY DAT Last Admin: 10/14/18 09:49 Dose: 40 mg Folic Acid (Folic Acid) 1 mg PO DAILY DAT Home Med (Home Med) 0.8 unit SC Q2W DAT Last Admin: 10/14/18 11:49 Dose: 0.8 unit Levothyroxine Sodium (Synthroid) 100 mcg PO 0600 [facility] Last Admin: 10/14/18 06:07 Dose: 100 mcg Magnesium Oxide (Mag-Ox) 400 mg PO BID [facility] Last Admin: 10/14/18 18:44 Dose: 400 mg Metoprolol Tartrate (Lopressor) 25 mg PO BRKDIN [facility] Last Admin: 10/14/18 18:43 Dose: 25 mg Pantoprazole Sodium (Protonix Ec Tab) 40 mg PO 0600 [facility] Last Admin: 10/14/18 06:07 Dose: 40 mg Saliva Substitute (Saliva Substitute) 0 ml PO TID PRN PRN Reason: Dry mouth Last Admin: 10/04/18 13:41 Dose: 1 ml Valproate Sodium (Depakene Oral Soln) 500 mg PO [facility] Last Admin: 10/13/18 21:36 Dose: 500 mg Valproate Sodium (Depakene Oral Soln) 500 mg PO BID [facility] Last Admin: 10/14/18 18:45 Dose: 500 mg Zolpidem Tartrate (Ambien) 5 mg PO [facility]; Protocol Last Admin: 10/14/18 21:27 Dose: 5 mg - Labs Labs: 10/09/18 09:30 10/10/18 08:00 Assessment and Plan - Assessment and Plan (Free Text) Assessment: Infectious diseases Attending Physician Attestation Patient seen and examined, discussed with medical/surgery registered nurse. I have reviewed the patient's history of present illness, past medical, social, personal and family histories, pertinent physical exam findings, course so far in this hospital ad mission, pertinent laboratory and imaging results. I agree with the above findings, assessment and plan. In addition, will continue to monitor off antibiotics in this patient with asymptomatic bacteriuria.
[2018-10-14] MEDS: Valproic Acid 250 mg/5 ml UD Cup PO SCH ×2 (09:48→18:45)
[2018-10-14] MEDS: Magnesium Oxide 400 mg Tab UD PO SCH ×2 (09:50→18:44)
[2018-10-14] MEDS ORDERED: HUMIRA 40 MG/0.8 ML IM SCH (10:00)
--- NOTE | 2018-10-14 10:22 | PN ---
DATE: 10/13/2018 SUBJECTIVE: The patient was agitated. She gets sedated. She is sleeping, comfortable, no distress. PHYSICAL EXAMINATION: VITAL SIGNS: Stable. Temperature 97, heart rate is 104 and blood pressure 115/66. Her physical exam no change. LUNGS: Clear. CARDIAC: First sound and second sound normal. ABDOMEN: Soft. EXTREMITIES: No edema, except right upper extremity, she has lymphedema. IMPRESSION AND PLAN: 1. Schizoaffective disorder. She is still on current bunch of psychiatric medications. She is getting Thorazine, Clozaril, Klonopin, and Prozac. We will continue current therapy. 2. Rheumatoid arthritis. We will get her the Humira injection. There is no interaction between other medication and Humira. However, we have to monitor her white count and observe for infections. 3. Hypothyroidism. 4. Esophageal strictures. She is eating; however, she may need further treatment left later after her psychiatric condition stabilized. Continue current therapy. We will follow up. Igor Ca MD
[2018-10-14] MEDS: Bacitracin Ointment 30 GM TUBE TOP SCH ×2 (11:59→18:51)
--- NOTE | 2018-10-14 16:46 | PCM.PYCHPN ---
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 Medical Problems: pt was dehydrated, but doing better dysphagia is better UTI, patient completed course of antibiotics urine analysis showed leukocyte esterase again on 10/01/2018, Infectious disease wants to observe patient without antibiotics, discussed with 10/10/18 neurology consult was called, pt is not improving for the past 3weeks CT scan at the time of admission 09/14/18 was WNL. Discussed with Dr. Deleon 10/14/2018: MRI of the brain, this technical writer and editor is not sure if patient will be able to tolerate that EEG this technical writer and editor is not sure if patient will be able to tolerate that Input appreciated Diagnostic Results: 09/14/18 09:10 09/15/18 08:00 Lab Results 09/15/18 08:00: Sodium 140, Potassium 4.0, Chloride 102, Carbon Dioxide 28, Anion Gap 14, BUN 15, Creatinine 1.2, Est GFR ( Amer) 58, Est GFR (Non-Af Amer) 48, Random Glucose 97, Calcium 9.8 09/14/18 17:40: Urine Color Yellow, Urine Appearance Sl cloudy, Urine pH 6.0, Ur Specific [place] 1.010, Urine Protein Negative, Urine Glucose (UA) Negative, Urine Ketones Negative, Urine Blood Small H, Urine Nitrate Positive H, Urine Bilirubin Negative, Urine Urobilinogen 0.2, Ur Leukocyte Esterase Small H, Urine RBC 5 - 10, Urine WBC 20 - 25, Ur Epithelial Cells 10 - 12, Urine Bacteria Many 09/14/18 09:10: RPR Nonreactive 09/14/18 09:10: TSH 3rd Generation 5.59 H 09/14/18 09:10: Sodium 140, Potassium 4.0, Chloride 104, Carbon Dioxide 21, Anion Gap 18, BUN 15, Creatinine 1.6 H, Est GFR ( Amer) 42, Est GFR (Non- Af Amer) 35, Random Glucose 85, Calcium 10.0, Phosphorus 2.8, Magnesium 1.6 L, Total Bilirubin 0.5, AST 89 H D, ALT 57 H, Alkaline Phosphatase 88, Total Protein 8.0, Albumin 4.4, Globulin 3.6, Albumin/Globulin Ratio 1.2, Triglycerides 102, Cholesterol 234 H, LDL Cholesterol Direct 155 H, HDL Cholesterol 60 09/14/18 09:10: WBC 4.7 D, RBC 4.39, Hgb 12.4, Hct 37.8, MCV 86.1, MCH 28.2, MCHC 32.8, RDW 16.4 H, Plt Count 360, MPV 9.4, Gran % 50.8, Lymph % (Auto) 34.7, [place] % (Auto) 13.4 H, Eos % (Auto) 0.9 L, Baso % (Auto) 0.2, Gran # 2.39, Lymph # (Auto) 1.6, [place] # (Auto) 0.6, Eos # (Auto) 0.0, Baso # (Auto) 0.01 Microbiology 09/14/18 17:40 Urine Urine Culture - Preliminary Gram Negative [facility] Laboratory Results - last 24 hr 09/19/18 09:55 WBC 4.5 RBC 4.35 Hgb 12.2 Hct 38.3 MCV 88.0 MCH 28.0 MCHC 31.9 RDW 16.6 H Plt Count 318 MPV 9.6 Gran % 54.3 Lymph % (Auto) 30.0 [place] % (Auto) 14.8 H Eos % (Auto) 0.7 L Baso % (Auto) 0.2 Gran # 2.43 Lymph # (Auto) 1.3 [place] # (Auto) 0.7 H Eos # (Auto) 0.0 Baso # (Auto) 0.01 Abnormal Lab Results 09/22/18 09/22/18 07:30 07:30 WBC 3.4 L D RBC 4.34 Hgb 12.2 Hct 37.4 MCV 86.2 MCH 28.1 MCHC 32.6 RDW 16.5 H Plt Count 373 MPV 9.7 Sodium 141 Potassium 5.0 Chloride 107 Carbon Dioxide 25 Anion Gap 14 BUN 18 Creatinine 1.5 H Est GFR ( Amer) 45 Est GFR (Non-Af Amer) 37 Random Glucose 98 Calcium 10.2 Laboratory Results - last 72 hr 09/25/18 14:47 POC Glucose (mg/dL) 94 Vital Signs Temp Pulse Resp BP Pulse Ox 09/27/18 16:00 52 L 108/81 09/27/18 08:40 84 122/67 09/27/18 07:00 97.3 F L 84 18 122/67 09/26/18 08:04 121 H 136/114 H 09/26/18 07:26 98.2 F 54 L 22 136/114 H 09/25/18 09:08 80 124/70 09/24/18 16:00 93 H 112/74 09/24/18 09:17 97/50 L 09/24/18 07:20 97.1 F L 82 16 97/50 L 09/24/18 07:18 97.1 F L 82 20 97/50 L 09/23/18 16:00 86 110/67 09/23/18 06:49 97.7 F 77 20 114/69 09/22/18 16:00 83 103/57 L 09/22/18 12:26 97 H 110/72 09/21/18 10:21 90 116/71 09/21/18 10:15 98.4 F 90 20 116/71 99 09/20/18 15:45 100 H 95/70 L 09/20/18 10:04 93 H 146/96 H 09/20/18 06:48 98.1 F 79 16 98/60 L 09/19/18 16:00 60 116/88 09/19/18 07:28 97.3 F L 91 H 20 115/75 09/17/18 15:00 73 H 128/106 H 09/17/18 09:30 68 116/62 09/17/18 07:25 97.1 F L 80 18 92/58 L 09/16/18 16:00 102 H 120/81 09/16/18 09:47 104 H 124/99 H 09/16/18 07:17 98.0 F 87 18 98/59 L 09/15/18 09:07 103 H 106/70 09/15/18 07:00 97.8 F 105 H 19 86/60 L 09/14/18 16:28 90 139/118 H 09/14/18 07:00 97.9 F 60 17 115/72 09/13/18 08:30 114 H 20 129/100 H 09/13/18 07:00 98.5 F 55 L 22 169/114 H 09/13/18 06:50 55 L 169/114 H 09/12/18 16:11 97.2 F L 80 20 114/64 09/12/18 15:39 20 Abnormal Lab Results 09/29/18 19:14 WBC 4.8 RBC 4.34 Hgb 12.3 Hct 38.4 MCV 88.5 MCH 28.3 MCHC 32.0 RDW 16.7 H Plt Count 261 MPV 10.7 Gran % 39.9 L Lymph % (Auto) 42.0 H [place] % (Auto) 15.8 H Eos % (Auto) 1.9 Baso % (Auto) 0.4 Gran # 1.90 Lymph # (Auto) 2.0 [place] # (Auto) 0.8 H Eos # (Auto) 0.1 Baso # (Auto) 0.02 Abnormal Lab Results 10/01/18 10/01/18 10/01/18 07:50 07:50 07:50 WBC 3.2 L D RBC 4.39 Hgb 12.2 Hct 38.8 MCV 88.4 MCH 27.8 MCHC 31.4 RDW 16.7 H Plt Count 280 MPV 9.9 Sodium 141 Potassium 4.2 Chloride 108 H Carbon Dioxide 28 Anion Gap 10 BUN 16 Creatinine 1.1 Est GFR ( Amer) > 60 Est GFR (Non-Af Amer) 53 Random Glucose 98 Calcium 9.5 Thyroxine (T4) 8.4 TSH 3rd Generation 1.86 Cortisol AM Sample 10/01/18 07:50 WBC RBC Hgb Hct MCV MCH MCHC RDW Plt Count MPV Sodium Potassium Chloride Carbon Dioxide Anion Gap BUN Creatinine Est GFR ( Amer) Est GFR (Non-Af Amer) Random Glucose Calcium Thyroxine (T4) TSH 3rd Generation Cortisol AM Sample 19.5 Temp Pulse Resp BP Pulse Ox 97.9 F 113 H 20 105/72 99 10/03/18 07:17 10/03/18 09:46 10/03/18 07:17 10/03/18 09:46 09/21/18 10:15 Microbiology 10/06/18 12:17 Urine Culture - Final Urine Enterococcus Faecalis Temp Pulse Resp BP Pulse Ox 97.9 F 102 H 22 143/120 H 99 10/09/18 07:36 10/09/18 08:25 10/09/18 07:36 10/09/18 08:25 09/21/18 10:15 Laboratory Results - last 24 hr 10/09/18 09:30 WBC 5.4 D RBC 4.09 Hgb 11.3 L Hct 36.0 MCV 88.0 MCH 27.6 MCHC 31.4 RDW 16.8 H Plt Count 337 MPV 9.8 Gran % 63.5 Lymph % (Auto) 22.0 [place] % (Auto) 12.4 H Eos % (Auto) 1.9 Baso % (Auto) 0.2 Gran # 3.43 Lymph # (Auto) 1.2 [place] # (Auto) 0.7 H Eos # (Auto) 0.1 Baso # (Auto) 0.01 No signs of a granulocytosis Temp Pulse Resp BP Pulse Ox 97.9 F 63 20 128/91 H 99 10/10/18 07:31 10/10/18 09:43 10/10/18 07:31 10/10/18 09:43 09/21/18 10:15 Temp Pulse Resp BP Pulse Ox 97.9 F 88 16 73/49 L 99 10/14/18 06:59 10/14/18 10:09 10/14/18 06:59 10/14/18 10:09 09/21/18 10:15 DSM 5 Symptoms Update: Patient is a 48-year-old [place] female with a psychiatric history of Schizoaffective disorder, multiple prior psychiatric admissions both in [place] and the [place]~ most recently hospitalized at [facility] x6 months ago, who was transferred from the medical floor after being treated from 09/10/18-09/12/18 for dysphagia. Pt was presented with depression, disorganization, paranoia, hoahaoism preoccupation as well as bizarre behavior. On the medical floor patient required 1:1 because she was caught drinking her urine out of the toilet. Patient was trying to punish herself because she didn't deserve to live. Patient attends outpatient psychiatric treatment of [facility]. Her most recent follow up was on September 08, 2018. Patient has been compliant with Abilify 10 mg daily, Prozac 10 mg daily Seroquel 100 mg BID as well as Abilify Maintenna last injected September 08, 2018. Patient was seen at the treatment team meeting utilized translation line George ID#[id number] for interpretation. Patient presented less paranoid towards her , patient reported that she feels so worried that she was mistreating her , patient reported that she wanted her to be her power of workers compensation attorney and help her with the medical decisions, patient was religiously preoccupied but not agitated, patient said that she wished this technical writer and editor and all treatment team happy holidays, patient reported that "I have difficulties to accommodate to this unit", patient appears to be disorganized. discussed with ID 10/10/18, wants to observe patient with no antibiotics. Discussed with neurologist Dr. Deleon today 10/14/2018, plan is for MRI, EEG. 10/02/18 discussed with , pt is dx with UTI with e.Fecalis. Hem/onc was involved because patient has history of breast cancer. Prolonged conversation with patient has been sent me as well as family welfare social work professor to place today 10/14/2018, patient is coming for family meeting 10/15/2018 with the hope that patient will be able to point him as a power of workers compensation attorney with the plan for ECT in the future. as per staff pt started to drooling on Clozaril. clozaril was started 10/01/18, pt is currently on 250mg po daily. Diagnostic Results: Schizoaffective Disorder Medication Change: Yes (Depakote is on hold, Clozaril changed the nighttime, Klonopin decreased) Medical Record Reviewed: Yes Consults ordered or reviewed: patient was seen by medical team as well as nephrology team see notes for more detailed information pt was seen by Hem/Onc pt was seen by ID team Neurology involved, discussed 10/14/2018 Mental Status Examination - Cognitive Function Orientation: Place Memory: Impaired Attention: Poor Concentration: Poor Association: Loose Fund of Knowledge: Poor - Mood Mood: Depressed ("I am afraid"), Anxious - Affect Affect: Constricted (labile, agitated, histrionic) - Speech Speech: Appropriate - Formal Thought Process Formal Thought Process: Hallucinations, Delusions, Paranoia, Loosening of associations - Suicidal Ideation Suicidal Ideation: No - Homicidal Ideation Homicidal Ideation: No Goal/Treatment Plan - Goal/Treatment Plan Need for Continued Stay: Remain at risks for inpatient hospitalization, Severe depression anxiety, Discharge may exacerbated symptoms, Severe functional impairment Progress Toward Problem(s) and Goals/Treatment Plan: group, milieu and supportive tx (as tolerated) Clozaril 50mg po daily and 200mg po hs, will titrate accordingly Prozac 40 mg daily for depression and anxiety klonopin 0.5mg po amhs and hs for anxiety and akathesia seroquel discontinued 10/09/2018 Twila Hartman was provided to patient on 09/08/18, no plan to resume Thorazine 50mg po and IM prn ECT might be helpful family meeting 10/15/18, possible POA, with plan for ECT 10/16/18 neurology involved MRI/EEG, will f/u if pt will be able to tolerate new UTI, ID and oncology involved SW consultation for discharge plan and social issues Family involvement, pt wanted her to participate in her care family meeting took place 09/19/18 CBC with zihmxjjehnhn05/6/2018 no signs of a granulocytosis Patient is registered clozaril [facility] Follow up on labs Will monitor closely Pt was educated about risk/benefits and alternatives of medications, coping strategies (safety plan, suicide prevention), relapse prevention, importance of follow up with psychiatrist and therapist, stay away from drugs/alcohol/smoking Estimated Date of D/C: 10/17/18
[2018-10-14] MEDS: DiphenhydrAMINE 50 mg/ml Inj IM PRN (21:24)
[2018-10-15] MEDS: Levothyroxine 100 MCG TAB PO SCH (06:32)
[2018-10-15] MEDS: Pantoprazole 40 mg EC Tab PO SCH (06:32)
[2018-10-15] MEDS: Valproic Acid 250 mg/5 ml UD Cup PO SCH (09:42)
[2018-10-15] MEDS: Magnesium Oxide 400 mg Tab UD PO SCH ×2 (09:43→17:39)
[2018-10-15] MEDS: Bacitracin Ointment 30 GM TUBE TOP SCH ×2 (09:45→17:38)
--- NOTE | 2018-10-15 10:51 | CP.PCM.PN ---
<Sailaja Polo - Last Filed: 10/15/18 10:49> Subjective - Date & Time of Evaluation Date of Evaluation: 10/15/18 Time of Evaluation: 09:00 - Subjective Subjective: ID Progress Note- Dr. Oneil Patient seen and examined at bedside. No acute overnight events. Patient combative at times with nursing staff. Pt has no acute complaints at this time. Family meeting later this morning for POA. Objective - Vital Signs/Intake and Output Vital Signs (last 24 hours): Temp Pulse Resp BP Pulse Ox 98.0 F 83 20 101/62 99 10/15/18 07:00 10/15/18 09:44 10/15/18 07:00 10/15/18 09:44 09/21/18 10:15 - Medications Medications: Current Medications Bacitracin (Bacitracin) 1 gm TOP BID DAT Last Admin: 10/15/18 09:45 Dose: 1 oin Chlorpromazine (Thorazine) 50 mg IM Q6H PRN; Protocol PRN Reason: Agitation Last Admin: 10/14/18 22:58 Dose: 50 mg Chlorpromazine (Thorazine) 50 mg PO Q6H PRN; Protocol PRN Reason: psychosis/agitation Last Admin: 10/11/18 05:28 Dose: 50 mg Clonazepam (Klonopin) 0.5 mg PO QAM DAT; Protocol Last Admin: 10/15/18 09:44 Dose: 0.5 mg Clonazepam (Klonopin) 0.5 mg PO HS DAT; Protocol Last Admin: 10/14/18 21:27 Dose: 0.5 mg Clozapine (Clozaril) 50 mg PO QAM DAT; Protocol Last Admin: 10/15/18 09:43 Dose: 50 mg Clozapine (Clozaril) 200 mg PO HS DAT; Protocol Diphenhydramine HCl (Benadryl) 50 mg IM Q6H PRN PRN Reason: Anxiety Last Admin: 10/14/18 21:24 Dose: 50 mg Diphenhydramine HCl (Benadryl) 50 mg PO Q6 PRN PRN Reason: Agitation Last Admin: 10/11/18 05:28 Dose: 50 mg Fluoxetine HCl (Prozac) 40 mg PO DAILY DAT Last Admin: 10/15/18 09:43 Dose: 40 mg Folic Acid (Folic Acid) 1 mg PO DAILY DAT Last Admin: 10/15/18 09:43 Dose: 1 mg Home Med (Home Med) 0.8 unit SC Q2W [facility] Last Admin: 10/14/18 11:49 Dose: 0.8 unit Levothyroxine Sodium (Synthroid) 100 mcg PO 0600 [facility] Last Admin: 10/15/18 06:32 Dose: 100 mcg Magnesium Oxide (Mag-Ox) 400 mg PO BID [facility] Last Admin: 10/15/18 09:43 Dose: 400 mg Metoprolol Tartrate (Lopressor) 25 mg PO BRKDIN [facility] Last Admin: 10/15/18 09:44 Dose: 25 mg Pantoprazole Sodium (Protonix Ec Tab) 40 mg PO 0600 [facility] Last Admin: 10/15/18 06:32 Dose: 40 mg Saliva Substitute (Saliva Substitute) 0 ml PO TID PRN PRN Reason: Dry mouth Last Admin: 10/04/18 13:41 Dose: 1 ml Valproate Sodium (Depakene Oral Soln) 500 mg PO [facility] Last Admin: 10/13/18 21:36 Dose: 500 mg Valproate Sodium (Depakene Oral Soln) 500 mg PO BID [facility] Last Admin: 10/15/18 09:42 Dose: 500 mg Zolpidem Tartrate (Ambien) 5 mg PO [facility]; Protocol Last Admin: 10/14/18 21:27 Dose: 5 mg - Labs Labs: 10/09/18 09:30 10/10/18 08:00 - Constitutional Appears: No Acute Distress - Head Exam Head Exam: ATRAUMATIC, NORMAL INSPECTION, NORMOCEPHALIC - Eye Exam Eye Exam: EOMI, Normal appearance, PERRL Pupil Exam: NORMAL ACCOMODATION, PERRL - ENT Exam ENT Exam: Mucous Membranes Moist, Normal Exam - Respiratory Exam Respiratory Exam: Clear to Ausculation Bilateral, NORMAL BREATHING PATTERN - Cardiovascular Exam Cardiovascular Exam: REGULAR RHYTHM, +S1, +S2. absent: Murmur - GI/Abdominal Exam GI & Abdominal Exam: Soft, Normal Bowel Sounds. absent: Tenderness - Neurological Exam Neurological Exam: Alert, Awake, CN II-XII Intact, Normal Gait, Oriented x3 - Psychiatric Exam Psychiatric exam: Normal Affect, Normal Mood - Skin Skin Exam: Dry, Intact, Normal Color, Warm Assessment and Plan - Assessment and Plan (Free Text) Assessment: 48 F with a PMHx Stage III Right Breast Cancer s/p right mastectomy with chemoradiation in 2003 and right breast reconstruction 2012, and chronic right arm lymphedema presenting with difficulty swallowing and exacerbation of schizoaffective disorder. Assessment asymptomatic bacteriuria with E. faecalis AMS HTN breast cancer S/P radiation therapy psychosis dyslipidemia Plan continue to monitor off antibiotics, fu with neuro workup for AMS, follow up after family meeting for POA <Johnathan Oneil S - Last Filed: 10/15/18 21:10> Objective - Vital Signs/Intake and Output Vital Signs (last 24 hours): Temp Pulse Resp BP Pulse Ox 98.0 F 84 20 106/59 L 99 10/15/18 07:00 10/15/18 17:38 10/15/18 07:00 10/15/18 17:38 09/21/18 10:15 - Medications Medications: Current Medications Bacitracin (Bacitracin) 1 gm TOP BID [facility] Last Admin: 10/15/18 17:38 Dose: Not Given Chlorpromazine (Thorazine) 50 mg IM Q6H PRN; Protocol PRN Reason: Agitation Last Admin: 10/14/18 22:58 Dose: 50 mg Chlorpromazine (Thorazine) 50 mg PO Q6H PRN; Protocol PRN Reason: psychosis/agitation Last Admin: 10/11/18 05:28 Dose: 50 mg Clozapine (Clozaril) 50 mg PO QAM [facility]; Protocol Last Admin: 10/15/18 09:43 Dose: 50 mg Clozapine (Clozaril) 200 mg PO HS [facility]; Protocol Diphenhydramine HCl (Benadryl) 50 mg IM Q6H PRN PRN Reason: Anxiety Last Admin: 10/14/18 21:24 Dose: 50 mg Diphenhydramine HCl (Benadryl) 50 mg PO Q6 PRN PRN Reason: Agitation Last Admin: 10/11/18 05:28 Dose: 50 mg Fluoxetine HCl (Prozac) 40 mg PO DAILY [facility] Last Admin: 10/15/18 09:43 Dose: 40 mg Folic Acid (Folic Acid) 1 mg PO DAILY [facility] Last Admin: 10/15/18 09:43 Dose: 1 mg Home Med (Home Med) 0.8 unit SC Q2W [facility] Last Admin: 10/14/18 11:49 Dose: 0.8 unit Levothyroxine Sodium (Synthroid) 100 mcg PO 0600 [facility] Last Admin: 10/15/18 06:32 Dose: 100 mcg Magnesium Oxide (Mag-Ox) 400 mg PO BID [facility] Last Admin: 10/15/18 17:39 Dose: 400 mg Metoprolol Tartrate (Lopressor) 25 mg PO BRKDIN [facility] Last Admin: 10/15/18 17:38 Dose: 25 mg Pantoprazole Sodium (Protonix Ec Tab) 40 mg PO 0600 [facility] Last Admin: 10/15/18 06:32 Dose: 40 mg Saliva Substitute (Saliva Substitute) 0 ml PO TID PRN PRN Reason: Dry mouth Last Admin: 10/04/18 13:41 Dose: 1 ml Valproate Sodium (Depakene Oral Soln) 500 mg PO [facility] Last Admin: 10/13/18 21:36 Dose: 500 mg Zolpidem Tartrate (Ambien) 5 mg PO [facility]; Protocol Last Admin: 10/14/18 21:27 Dose: 5 mg - Labs Labs: 10/09/18 09:30 10/10/18 08:00 Assessment and Plan - Assessment and Plan (Free Text) Assessment: Infectious diseases Attending Physician Attestation Patient seen and examined, discussed with medical esthetician. I have reviewed the patient's history of present illness, past medical, social, personal and family histories, pertinent physical exam findings, course so far in this hospital admission, pertinent laboratory and imaging results. I agree with the above findings, assessment and plan. In addition, will continue to monitor the patient off antibiotics - she has asymptomatic bacteriuria with E. faecalis.
--- NOTE | 2018-10-15 15:42 | CP.PCM.PN ---
Subjective - Date & Time of Evaluation Date of Evaluation: 10/15/18 Time of Evaluation: 15:41 - Subjective Subjective: Nephrology Consultation Note: Assessment: Stable Acute Kidney Injury (N17.9) likely due to pre-renal state hx of HTN Ca breast s/p radiation and Rt arm lymphedema dysphagia psyhosis hyperlipidemia UTI Plan No acute need for renal replacement therapy at this time. . Hypertension control with meds as ordered. Maintain hemodynamics stable. Avoid hypotension. no ACEI/ARB due to TERESA. hold hctz due to pre renal state. inderal changed to lopressor bid. mildley elevated plasma metanephrines likely due to current illness/stress. check 24 hr urine as well Monitor Input/Output, daily weights and renal function with basic metabolic panel pt to be encouraged to drink more water. d/w staff pt seen by ID for UTI Dose meds/antibiotics for improved GFR. Glycemic control Further work up/management as per primary team Thanks for allowing me to participate in care of your patient. Please call if any Qs. had d/w team Dr Johnson Gibbs Office: [phone] Chief Complaint; unable to obtain Reason for consult: Acute Kidney Injury HPI: Pt is a 48 F with hx of hypertension, Ca breast s/p radiation and Rt arm lymphedema presented with complaints of difficulty swallowing, seen by GI and heme/onc, transferred to U for psychosis and noted to have higher Cr 1.6 Denies OTC/herbal meds or NSAIDs No recent iodinated contrast exposure. No obvious episodes of low BP. renal consult for TERESA ROS: pt unable to provide any hx. mumbling incomprehensibly Physical Examination: General Appearance: in no acute respiratory distress Vitals reviewed and noted as below Head; Atraumatic, normocephalic ENT: no ulcers no thrush. Tongue is midline. Oropharynx: no rash or ulcers. EYES: Pupils are equal, round and reactive to light accommodation. Eye muscles and extraocular movement intact. Sclera is anicteric. Neck; supple no lymphadenopathy, no thyromegaly or bruit Lungs: Normal respiratory rate/effort. Breath sounds bilateral equal and clear Heart: Normal rate. s1s2 normal. No rub or gallop. Extremities: no edema. No varicose veins. Rt arm lymphedema Neurological: Patient is awake Skin: Warm and dry. Normal turgor. No rash. Palpitation: Normal elasticity for age Abdomen: Abdomen is soft. Bowel sounds +. There is no abdominal tenderness, no guarding/rigidity no organomegaly Psych: lack insight. flat affect. mumbling incomprehensibly MSK: no joint tenderness or swelling. Digits and nails normal, no deformity : kidney or bladder not palpable Labs/imaging reviewed. Past medical history, past surgical history, family history, social history, allergy reviewed and noted as below Family hx: no hx of CKD. Rest non-contributory Objective - Vital Signs/Intake and Output Vital Signs (last 24 hours): Temp Pulse Resp BP Pulse Ox 98.0 F 83 20 101/62 99 10/15/18 07:00 10/15/18 09:44 10/15/18 07:00 10/15/18 09:44 09/21/18 10:15 - Medications Medications: Current Medications Bacitracin (Bacitracin) 1 gm TOP BID [facility] Last Admin: 10/15/18 09:45 Dose: 1 oin Chlorpromazine (Thorazine) 50 mg IM Q6H PRN; Protocol PRN Reason: Agitation Last Admin: 10/14/18 22:58 Dose: 50 mg Chlorpromazine (Thorazine) 50 mg PO Q6H PRN; Protocol PRN Reason: psychosis/agitation Last Admin: 10/11/18 05:28 Dose: 50 mg Clozapine (Clozaril) 50 mg PO QAM [facility]; Protocol Last Admin: 10/15/18 09:43 Dose: 50 mg Clozapine (Clozaril) 200 mg PO HS [facility]; Protocol Diphenhydramine HCl (Benadryl) 50 mg IM Q6H PRN PRN Reason: Anxiety Last Admin: 10/14/18 21:24 Dose: 50 mg Diphenhydramine HCl (Benadryl) 50 mg PO Q6 PRN PRN Reason: Agitation Last Admin: 10/11/18 05:28 Dose: 50 mg Fluoxetine HCl (Prozac) 40 mg PO DAILY [facility] Last Admin: 10/15/18 09:43 Dose: 40 mg Folic Acid (Folic Acid) 1 mg PO DAILY [facility] Last Admin: 10/15/18 09:43 Dose: 1 mg Home Med (Home Med) 0.8 unit SC Q2W [facility] Last Admin: 10/14/18 11:49 Dose: 0.8 unit Levothyroxine Sodium (Synthroid) 100 mcg PO 0600 [facility] Last Admin: 10/15/18 06:32 Dose: 100 mcg Magnesium Oxide (Mag-Ox) 400 mg PO BID [facility] Last Admin: 10/15/18 09:43 Dose: 400 mg Metoprolol Tartrate (Lopressor) 25 mg PO BRKDIN [facility] Last Admin: 10/15/18 09:44 Dose: 25 mg Pantoprazole Sodium (Protonix Ec Tab) 40 mg PO 0600 [facility] Last Admin: 10/15/18 06:32 Dose: 40 mg Saliva Substitute (Saliva Substitute) 0 ml PO TID PRN PRN Reason: Dry mouth Last Admin: 10/04/18 13:41 Dose: 1 ml Valproate Sodium (Depakene Oral Soln) 500 mg PO [facility] Last Admin: 10/13/18 21:36 Dose: 500 mg Zolpidem Tartrate (Ambien) 5 mg PO HS [facility]; Protocol Last Admin: 10/14/18 21:27 Dose: 5 mg - Labs Labs: 10/09/18 09:30 10/10/18 08:00
--- NOTE | 2018-10-15 15:47 | PCM.PYCHPN ---
Psychiatric Progress Note - Psychiatric Progress Note Patient seen today, length of contact: 30 minutes Patient Chief Complaint: "I want to feel better, god bless you" Problems Identified/Issues Discussed: this policy writer sales attempted to discuss suicide/ homicide prevention, past psychiatric h/o, current psychiatric symptoms, medical problems, risk/benefits and alternatives of medications, medications compliance, coping strategies, substance abuse h/o, relapse prevention, importance of follow up with psychiatrist and therapist, discharge plan. Medical Problems: pt was dehydrated, but doing better dysphagia is better UTI, patient completed course of antibiotics urine analysis showed leukocyte esterase again on 10/01/2018, Infectious disease wants to observe patient without antibiotics, discussed with 10/10/18 neurology consult was called, pt is not improving for the past 3weeks CT scan at the time of admission 09/14/18 was WNL. Discussed with Dr. Deleon 10/14/2018: MRI of the brain, this policy writer sales is not sure if patient will be able to tolerate that, staff educated about Thorazine and benadryl stat prior MRI EEG this policy writer sales is not sure if patient will be able to tolerate that Input appreciated Diagnostic Results: 09/14/18 09:10 09/15/18 08:00 Lab Results 09/15/18 08:00: Sodium 140, Potassium 4.0, Chloride 102, Carbon Dioxide 28, Anion Gap 14, BUN 15, Creatinine 1.2, Est GFR ( Amer) 58, Est GFR (Non-Af Amer) 48, Random Glucose 97, Calcium 9.8 09/14/18 17:40: Urine Color Yellow, Urine Appearance Sl cloudy, Urine pH 6.0, Ur Specific [place] 1.010, Urine Protein Negative, Urine Glucose (UA) Negative, Urine Ketones Negative, Urine Blood Small H, Urine Nitrate Positive H, Urine Bilirubin Negative, Urine Urobilinogen 0.2, Ur Leukocyte Esterase Small H, Urine RBC 5 - 10, Urine WBC 20 - 25, Ur Epithelial Cells 10 - 12, Urine Bacteria Many 09/14/18 09:10: RPR Nonreactive 09/14/18 09:10: TSH 3rd Generation 5.59 H 09/14/18 09:10: Sodium 140, Potassium 4.0, Chloride 104, Carbon Dioxide 21, Anion Gap 18, BUN 15, Creatinine 1.6 H, Est GFR ( Amer) 42, Est GFR (Non- Af Amer) 35, Random Glucose 85, Calcium 10.0, Phosphorus 2.8, Magnesium 1.6 L, Total Bilirubin 0.5, AST 89 H D, ALT 57 H, Alkaline Phosphatase 88, Total Protein 8.0, Albumin 4.4, Globulin 3.6, Albumin/Globulin Ratio 1.2, Triglycerides 102, Cholesterol 234 H, LDL Cholesterol Direct 155 H, HDL Cholesterol 60 09/14/18 09:10: WBC 4.7 D, RBC 4.39, Hgb 12.4, Hct 37.8, MCV 86.1, MCH 28.2, MCHC 32.8, RDW 16.4 H, Plt Count 360, MPV 9.4, Gran % 50.8, Lymph % (Auto) 34.7, [place] % (Auto) 13.4 H, Eos % (Auto) 0.9 L, Baso % (Auto) 0.2, Gran # 2.39, Lymph # (Auto) 1.6, [place] # (Auto) 0.6, Eos # (Auto) 0.0, Baso # (Auto) 0.01 Microbiology 09/14/18 17:40 Urine Urine Culture - Preliminary Gram Negative [facility] Laboratory Results - last 24 hr 09/19/18 09:55 WBC 4.5 RBC 4.35 Hgb 12.2 Hct 38.3 MCV 88.0 MCH 28.0 MCHC 31.9 RDW 16.6 H Plt Count 318 MPV 9.6 Gran % 54.3 Lymph % (Auto) 30.0 [place] % (Auto) 14.8 H Eos % (Auto) 0.7 L Baso % (Auto) 0.2 Gran # 2.43 Lymph # (Auto) 1.3 [place] # (Auto) 0.7 H Eos # (Auto) 0.0 Baso # (Auto) 0.01 Abnormal Lab Results 09/22/18 09/22/18 07:30 07:30 WBC 3.4 L D RBC 4.34 Hgb 12.2 Hct 37.4 MCV 86.2 MCH 28.1 MCHC 32.6 RDW 16.5 H Plt Count 373 MPV 9.7 Sodium 141 Potassium 5.0 Chloride 107 Carbon Dioxide 25 Anion Gap 14 BUN 18 Creatinine 1.5 H Est GFR ( Amer) 45 Est GFR (Non-Af Amer) 37 Random Glucose 98 Calcium 10.2 Laboratory Results - last 72 hr 09/25/18 14:47 POC Glucose (mg/dL) 94 Vital Signs Temp Pulse Resp BP Pulse Ox 09/27/18 16:00 52 L 108/81 09/27/18 08:40 84 122/67 09/27/18 07:00 97.3 F L 84 18 122/67 09/26/18 08:04 121 H 136/114 H 09/26/18 07:26 98.2 F 54 L 22 136/114 H 09/25/18 09:08 80 124/70 09/24/18 16:00 93 H 112/74 09/24/18 09:17 97/50 L 09/24/18 07:20 97.1 F L 82 16 97/50 L 09/24/18 07:18 97.1 F L 82 20 97/50 L 09/23/18 16:00 86 110/67 09/23/18 06:49 97.7 F 77 20 114/69 09/22/18 16:00 83 103/57 L 09/22/18 12:26 97 H 110/72 09/21/18 10:21 90 116/71 09/21/18 10:15 98.4 F 90 20 116/71 99 09/20/18 15:45 100 H 95/70 L 09/20/18 10:04 93 H 146/96 H 09/20/18 06:48 98.1 F 79 16 98/60 L 09/19/18 16:00 60 116/88 09/19/18 07:28 97.3 F L 91 H 20 115/75 09/17/18 15:00 73 H 128/106 H 09/17/18 09:30 68 116/62 09/17/18 07:25 97.1 F L 80 18 92/58 L 09/16/18 16:00 102 H 120/81 09/16/18 09:47 104 H 124/99 H 09/16/18 07:17 98.0 F 87 18 98/59 L 09/15/18 09:07 103 H 106/70 09/15/18 07:00 97.8 F 105 H 19 86/60 L 09/14/18 16:28 90 139/118 H 09/14/18 07:00 97.9 F 60 17 115/72 11/10/18 08:30 114 H 20 129/100 H 09/13/18 07:00 98.5 F 55 L 22 169/114 H 09/13/18 06:50 55 L 169/114 H 09/12/18 16:11 97.2 F L 80 20 114/64 09/12/18 15:39 20 Abnormal Lab Results 09/29/18 19:14 WBC 4.8 RBC 4.34 Hgb 12.3 Hct 38.4 MCV 88.5 MCH 28.3 MCHC 32.0 RDW 16.7 H Plt Count 261 MPV 10.7 Gran % 39.9 L Lymph % (Auto) 42.0 H [place] % (Auto) 15.8 H Eos % (Auto) 1.9 Baso % (Auto) 0.4 Gran # 1.90 Lymph # (Auto) 2.0 [place] # (Auto) 0.8 H Eos # (Auto) 0.1 Baso # (Auto) 0.02 Abnormal Lab Results 10/01/18 10/01/18 10/01/18 07:50 07:50 07:50 WBC 3.2 L D RBC 4.39 Hgb 12.2 Hct 38.8 MCV 88.4 MCH 27.8 MCHC 31.4 RDW 16.7 H Plt Count 280 MPV 9.9 Sodium 141 Potassium 4.2 Chloride 108 H Carbon Dioxide 28 Anion Gap 10 BUN 16 Creatinine 1.1 Est GFR ( Amer) > 60 Est GFR (Non-Af Amer) 53 Random Glucose 98 Calcium 9.5 Thyroxine (T4) 8.4 TSH 3rd Generation 1.86 Cortisol AM Sample 10/01/18 07:50 WBC RBC Hgb Hct MCV MCH MCHC RDW Plt Count MPV Sodium Potassium Chloride Carbon Dioxide Anion Gap BUN Creatinine Est GFR ( Amer) Est GFR (Non-Af Amer) Random Glucose Calcium Thyroxine (T4) TSH 3rd Generation Cortisol AM Sample 19.5 Temp Pulse Resp BP Pulse Ox 97.9 F 113 H 20 105/72 99 10/03/18 07:17 10/03/18 09:46 10/03/18 07:17 10/03/18 09:46 09/21/18 10:15 Microbiology 10/06/18 12:17 Urine Culture - Final Urine Enterococcus Faecalis Temp Pulse Resp BP Pulse Ox 97.9 F 102 H 22 143/120 H 99 10/09/18 07:36 10/09/18 08:25 10/09/18 07:36 10/09/18 08:25 09/21/18 10:15 Laboratory Results - last 24 hr 10/09/18 09:30 WBC 5.4 D RBC 4.09 Hgb 11.3 L Hct 36.0 MCV 88.0 MCH 27.6 MCHC 31.4 RDW 16.8 H Plt Count 337 MPV 9.8 Gran % 63.5 Lymph % (Auto) 22.0 [place] % (Auto) 12.4 H Eos % (Auto) 1.9 Baso % (Auto) 0.2 Gran # 3.43 Lymph # (Auto) 1.2 [place] # (Auto) 0.7 H Eos # (Auto) 0.1 Baso # (Auto) 0.01 No signs of a granulocytosis Temp Pulse Resp BP Pulse Ox 97.9 F 63 20 128/91 H 99 10/10/18 07:31 10/10/18 09:43 10/10/18 07:31 10/10/18 09:43 09/21/18 10:15 Temp Pulse Resp BP Pulse Ox 97.9 F 88 16 73/49 L 99 10/14/18 06:59 10/14/18 10:09 10/14/18 06:59 10/14/18 10:09 09/21/18 10:15 DSM 5 Symptoms Update: Patient is a 48-year-old [place] female with a psychiatric history of Schizoaffective disorder, multiple prior psychiatric admissions both in [place] and the [place]~ most recently hospitalized at [facility] x6 months ago, who was transferred from the medical floor after being treated from 09/10/18-09/12/18 for dysphagia. Pt was presented with depression, disorganization, paranoia, adventism preoccupation as well as bizarre behavior. On the medical floor patient required 1:1 because she was caught drinking her urine out of the toilet. Patient was trying to punish herself because she didn't deserve to live. Patient attends outpatient psychiatric treatment of [facility]. Her most recent follow up was on September 08, 2018. Patient has been compliant with Abilify 10 mg daily, Prozac 10 mg daily Seroquel 100 mg BID as well as Abiliclaire Maintenna last injected September 08, 2018. Patient herself, pt's JANE Becker and Lillie sahu director of case management as well as this policy writer sales had a family meeting in order to discuss the option of POA for medical issues. Pt presented to be psychotic, but no agitation or aggression observed. Patient is Irish speaking and this policy writer sales utilized translation line [employer] [place]#[id number] for interpretation. pt was not able to understand medical terms of legal documentations, as well as intubation/adi care proxy as well as advance directives at this time. This policy writer sales explained patient and patient's about ECT procedure, risk/benefits and alternatives discussed with the patient as well as her , patient and her both agreed for ECT procedure. Pt's reported that pt had ECT treatment back in [place] and as a next of kin willing for the patient to have that procedure. Patient's said that pt had similar presentation in the past and ECT was the only procedure which helped pt significantly, pt's said patient had bilateral treatment in the past. pt and her spend about 20min at the TV area, after that pt left. discussed with ID 10/10/18, wants to observe patient with no antibiotics. Discussed with neurologist Dr. Deleon 10/14/2018, plan is for MRI, EEG, pt was restless and did not have MRI or ECT, to r/o mets or any organic causes of delirium, staff educated to give Thorazine and benadryl prior MRI and have it done either today or tomorrow. 10/15/18 discussed with , pt is dx with UTI with e.Fecalis. Hem/onc was involved because patient has history of breast cancer. will call for GI follow up, pt did not have BM, and pt is refusing puree diet but eats with good appetite when pt's brings her home food. no drooling observed today. clozaril was started 10/01/18, pt is currently on 250mg po daily. Diagnostic Results: Schizoaffective [id number]/ Medication Change: Yes (Depakote is on hold, Clozaril changed the nighttime, Klonopin decreased) Medical Record Reviewed: Yes Mental Status Examination - Cognitive Function Orientation: Place Memory: Impaired Attention: Poor Concentration: Poor Association: Loose Fund of Knowledge: Poor - Mood Mood: Depressed ("I am afraid"), Anxious - Affect Affect: Constricted (labile, agitated, histrionic) - Speech Speech: Appropriate - Formal Thought Process Formal Thought Process: Hallucinations, Delusions, Paranoia, Loosening of associations - Suicidal Ideation Suicidal Ideation: No - Homicidal Ideation Homicidal Ideation: No Goal/Treatment Plan - Goal/Treatment Plan Need for Continued Stay: Remain at risks for inpatient hospitalization, Severe depression anxiety, Discharge may exacerbated symptoms, Severe functional impairment Progress Toward Problem(s) and Goals/Treatment Plan: group, milieu and supportive tx (as tolerated) Clozaril 50mg po daily and 200mg po hs, will titrate accordingly Prozac 40 mg daily for depression and anxiety klonopin on hold seroquel discontinued 10/09/2018 Twila Hartman was provided to patient on 09/08/18, no plan to resume Thorazine 50mg po and IM prn ECT might be helpful, and patient agreed for ECT neurology involved MRI/EEG, will f/u if pt will be able to tolerate ?UTI, ID and oncology involved GI follow up SW consultation for discharge plan and social issues Family involvement, pt wanted her to participate in her care family meeting took place 09/19/[address] 10/15/18 CBC with oplceptlyhfg32/6/2018 no signs of a granulocytosis Patient is registered clozaril [facility] Follow up on labs Will monitor closely Pt was educated about risk/benefits and alternatives of medications, coping strategies (safety plan, suicide prevention), relapse prevention, importance of follow up with psychiatrist and therapist, stay away from drugs/alcohol/smoking Estimated Date of D/C: 10/20/18
--- NOTE | 2018-10-15 20:19 | CARD ---
APPROVED REPORT Date of service: 10/15/2018 EKG Measurement Heart [id number] <Conclusion> Normal sinus rhythm Anteroseptal infarct, age undetermined Abnormal ECG
--- NOTE | 2018-10-15 20:33 | PN ---
DATE: 10/15/2018 SUBJECTIVE: The patient is in psych floor. She is sedated. She try to get out of bed. She is moving around. She is mildly agitated, being treated with some sedatives. The patient afebrile. PHYSICAL EXAMINATION: GENERAL: She is awake. Mildly sedated, but she responds properly. She knows me and she knows where she is. VITAL SIGNS: Temperature 97.9; heart rate 88; blood pressure was low, while repeated it was 122/66; and respirations 16. HEAD AND NECK: Normal. No JVD or thyromegaly. CHEST: Clear bilateral. CARDIAC: First sound and second sound normal. No murmur, rub or gallop. ABDOMEN: Soft and nontender. Obese. EXTREMITIES: No edema except right upper extremity lymphedema. NEUROLOGIC: Normal. LABORATORY STUDY: Last white count 5.4, hemoglobin 11.3, hematocrit 36, and platelets 337. Sodium 143, potassium 3.9, chloride 107, bicarb 32, BUN 12, creatinine 0.8, blood sugar 105, and calcium 9. IMPRESSION: 1. Schizoaffective disorder. Continuation of therapy. The patient may need electroconvulsive therapy as per psychiatrist. 2. Cardiac. The patient has hypertension. The patient is stable. She is on beta-blockers small dose she is getting. She was getting a small dose of metoprolol 25 b.i.d. Nephrology been in this case. Her urinary tract infections seems stable. No symptoms, afebrile. So, we will continue current therapy, encourage p.o. intake. 3. Hypothyroidism. 4. Dysphagia, tolerating diet good. So, we will continue current therapy. We will repeat EKG and I will get Cardiology Dr. Lloyd to see the patient's EKG. Current EKG shows low voltage, normal QT and QTc and EKG, but we will get the Cardiology to evaluate. EKG may be couple of year ago shows low voltage and there is prolonged QT in the previous one. Current EKG is none. That EKG was in . PLAN: To repeat EKG before ECT and we are going to get Dr. Lloyd to look at. Thank you very much. We will discuss with the newspaper distributor supervisor about the blood test results. Igor Ca MD
--- NOTE | 2018-10-16 02:38 | CON ---
DATE: 10/15/2018 CARDIOLOGY CONSULTATION REASON FOR CONSULTATION: Cardiac evaluation, preop ECT and abnormal EKG. BRIEF CLINICAL HISTORY: This is a 48-year-old female with past medical history significant for breast CA, right mastectomy with chemotherapy and radiation in 2003, status post right reconstruction breast surgery in 2012, history of chronic right arm edema, history of schizoaffective disorder, admitted to the psych floor and possible ECT, electroconvulsive therapy is planned for tomorrow. Cardiology consult was called for preop evaluation risk stratification, abnormal EKG read by computer. The patient denies any chest pain, denies any shortness of breath, denies any palpitation. PAST MEDICAL HISTORY: Significant for schizoaffective disorder and breast CA. Past history is also significant for as mentioned psychotic symptoms, hypothyroidism, iron deficiency anemia, longstanding history of psychosis, and breast CA as mentioned. PAST SURGICAL HISTORY: Significant for mastectomy in 2003 and status post reconstruction surgery in 2012. SOCIAL HISTORY: Denies smoking. Denies any history of alcohol abuse. FAMILY HISTORY: Noncontributory. CURRENT MEDICATIONS: The patient is taking hydrochlorothiazide, Aldactone, methotrexate, levothyroxine, and benztropine. ALLERGIES: VANCOMYCIN. PHYSICAL EXAMINATION: As follows: VITAL SIGNS: Height of the patient 4 feet 11 inches, weight of the patient 139 pounds, and body mass index 28.8 kg/m2. Temperature afebrile, heart rate 84, and blood pressure 106/59. HEENT: PERRLA intact. NECK: Supple. No carotid bruit or thyromegaly. LUNGS: Clear to auscultation. HEART: S1 and S2 regular. ABDOMEN: Soft. EXTREMITIES: Clubbing and cyanosis negative. LABORATORY DATA: EKG shows normal sinus, low voltage, poor R-R progression dated 09/26/2018. Repeat EKG today same; normal sinus, poor R progression, no change from 09/26/2018. IMPRESSION: This is a 48-year-old female with past medical history significant for schizoaffective disorder, history of breast cancer, status post mastectomy, wedge resection in 2003 and then 2013 reconstruction, history of hypothyroidism, history of hypertension, admitted to Psychiatry Floor with schizoaffective disorder, requiring electroconvulsive therapy. Cardiac consult was called for preoperative risk stratification. The patient denies any chest pain. The patient has no significant electrocardiographic changes. The patient had electrocardiogram in 09/2018 and then the patient has no new electrocardiographic changes. Actually, it goes back on 2014, electrocardiogram in normal sinus low voltage in 2014 and electrocardiogram today is same, though computer read as anterior wall myocardial infarction of undetermined age. Medications; no changes. The patient has good functional capacity, goes up and down, no anginal symptoms. We will clear the patient to go for electroconvulsive therapy with moderate risk because of procedure, but otherwise, no absolute contraindication. No evidence of angina, no evidence of congestive heart failure, no evidence of arrhythmia and no electrocardiographic changes, the electrocardiogram same as now and as on 04/04/2015, poor R-R progression, but no change. So, we will clear the patient, but we will get lipid profile, TSH, hemoglobin A1c and also will get echocardiogram to assess left ventricular function. We will follow with you. Thank you Dr. Ross for providing us the opportunity in taking care of the patient, Yomaira Will. Thank you for consult. Jasmine Lloyd MD
[2018-10-16] MEDS: Pantoprazole 40 mg EC Tab PO SCH ×2 (06:13→09:36)
[2018-10-16] MEDS: Levothyroxine 100 MCG TAB PO SCH ×2 (06:13→09:37)
[2018-10-16] MEDS: DiphenhydrAMINE 50 mg/ml Inj IM PRN (08:08)
[2018-10-16 08:32] LABS: BASO # 0.01 K/mm3 (0.0-2.0); BASO % 0.3 % (0.0-3.0); EOS # 0.2 (0.0-0.7); EOS % 4.7 % (1.5-5.0); GRAN # 1.95 (1.4-6.5); HEMOGLOBIN 11.7 g/dL (12.0-16.0); LYMPH % 27.4 % (22.0-35.0); MEAN CELL VOLUME 87.6 fl (80.0-105.0); MEAN CORPUSCULAR HEMOGLOBIN 27.9 pg (25.0-35.0); MEAN CORPUSCULAR HGB CONC 31.9 g/dl (31.0-37.0); MEAN PLATELET VOLUME 9.5 fl (7.0-11.0); MONO # 0.5 (0.1-0.6); MONO % 13.6 % (1.0-6.0); RBC 4.19 10^6/uL (3.5-6.1); RED CELL DISTRIBUTION WIDTH 16.9 % (11.5-14.5); WHITE BLOOD COUNT 3.6 10^3/uL (4.5-11.0)
--- NOTE | 2018-10-16 08:50 | PN ---
DATE: 10/15/2018 SUBJECTIVE: The patient is comfortable. No physical distress. The patient is just sedated, after being agitated and restless. The patient seen by psychiatrist and multiple psych medications and being evaluated for ECT. The patient has no chest pain, no cardiac history. Chest, multiple EKGs, no differences except just low voltage. Otherwise, the patient medically stable for ECT. PHYSICAL EXAMINATION: VITAL SIGNS: Temperature 98.0, heart rate 83, blood pressure 101/62 and respiration rate 20. HEAD AND NECK: Normal. No JVD. No thyromegaly. CHEST: Clear bilateral. CARDIAC: First sound and second sound normal. ABDOMEN: Soft and nontender. EXTREMITY: No edema except right lymphedema. NEUROLOGIC: Normal. LABORATORY STUDIES The patient has blood metanephrine and normetanephrine because of the paroxysmal hypertension, the tachycardia and the psychotic symptoms and agitations. We like to rule out any pheochromocytoma, however, it is usually it is very pretty high. IMPRESSION AND PLAN: 1. Schizoaffective disorder. Continue current medications for ECT. The patient medically and cardiac rawls stable for ECT. Dr. Lloyd seen the patient, Cardiology cleared also, EKG done, no change from previous ones. 2. Hypertension, stable. Blood pressure, stable. Heart rate within normal range and EKG no change. So, continue metoprolol twice a day 25 mg, she is stable on that. 3. Hypothyroidism, stable. Continue Synthroid. 4. 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 Continue current medications. Then, I reviewed the current medication before and take Ambien 5 mg at bedtime, Benadryl 50 mg every 6 hours, Clozaril 50 mg in the morning, 200 p.o. at bedtime, Depakote oral solution on hold, but she was getting 500 at bedtime folic acid. She is getting also Humira injection every 2 weeks, metoprolol 25 twice daily, magnesium oxide, Protonix 40, Prozac 40, saliva substitute, Synthroid and Thorazine 50 mg every 6 hours p.o. and every 6 hours IM p.r.n. Continue current medicine. The patient is moving it down. She woke around, she is moving the bed. Heparin was not given for DVT prophylaxis because the patient is doing good and no history of DVT in the past. Continue current therapy. Discussed with Dr. Leon. The patient medically cardiac stable for ECT. Igor Ca MD
[2018-10-16 08:57] LABS: ALB/GLOB RATIO 0.9 (1.1-1.8); ALBUMIN 3.7 g/dL (3.0-4.8); ALT/SGPT 46 U/L (7-56); AST/SGOT 52 U/L (14-36); BLOOD UREA NITROGEN 17 mg/dL (7-21); CALCIUM 8.9 mg/dL (8.4-10.5); GFR NON-AFRICAN AMERICAN > 60; HDL CHOLESTEROL 41 mg/dL (29-60)
[2018-10-16 09:00] LABS: LDL CHOLESTEROL 114 mg/dL (0-129)
[2018-10-16] MEDS: Bacitracin Ointment 30 GM TUBE TOP SCH ×2 (09:33→15:01)
[2018-10-16] MEDS: Valproic Acid 250 mg/5 ml UD Cup PO SCH ×2 (09:34→21:30)
[2018-10-16] MEDS: Magnesium Oxide 400 mg Tab UD PO SCH ×2 (09:35→17:05)
[2018-10-16] MEDS ORDERED: Potassium Chloride 20 mEq ER Tab PO ONE (11:23)
--- NOTE | 2018-10-16 12:37 | CP.PCM.PN ---
<Radames Ojeda - Last Filed: 10/16/18 12:34> Subjective - Date & Time of Evaluation Date of Evaluation: 10/16/18 Time of Evaluation: 11:50 - Subjective Subjective: PGY6 GI Fellow Progress Note Patient seen bedside this morning in the psychiatric [facility]. Patient having EEG performed. No events overnight. Objective - Vital Signs/Intake and Output Vital Signs (last 24 hours): Temp Pulse Resp BP Pulse Ox 98.0 F 73 20 113/90 99 10/16/18 06:56 10/16/18 06:56 10/16/18 06:56 10/16/18 06:56 09/21/18 10:15 - Medications Medications: Current Medications Alprazolam (Xanax) 0.25 mg PO BID [facility]; Protocol Stop: 10/23/18 09:16 Last Admin: 10/16/18 09:36 Dose: 0.25 mg Alprazolam (Xanax) 0.25 mg PO HS [facility]; Protocol Bacitracin (Bacitracin) 1 gm TOP BID [facility] Last Admin: 10/16/18 09:33 Dose: 1 oin Chlorpromazine (Thorazine) 50 mg IM Q6H PRN; Protocol PRN Reason: Agitation Last Admin: 10/16/18 08:08 Dose: 50 mg Chlorpromazine (Thorazine) 50 mg PO Q6H PRN; Protocol PRN Reason: psychosis/agitation Last Admin: 10/11/18 05:28 Dose: 50 mg Clozapine (Clozaril) 200 mg PO HS [facility]; Protocol Last Admin: 10/15/18 22:02 Dose: 200 mg Clozapine (Clozaril) 100 mg PO QAM [facility]; Protocol Last Admin: 10/16/18 11:11 Dose: 100 mg Fluoxetine HCl (Prozac) 40 mg PO DAILY [facility] Last Admin: 10/16/18 09:37 Dose: 40 mg Folic Acid (Folic Acid) 1 mg PO DAILY [facility] Last Admin: 10/16/18 09:36 Dose: 1 mg Home Med (Home Med) 0.8 unit SC Q2W DAT Last Admin: 10/14/18 11:49 Dose: 0.8 unit Levothyroxine Sodium (Synthroid) 100 mcg PO 0600 DAT Last Admin: 10/16/18 09:37 Dose: 100 mcg Magnesium Oxide (Mag-Ox) 400 mg PO BID [facility] Last Admin: 10/16/18 09:35 Dose: Not Given Metoprolol Tartrate (Lopressor) 25 mg PO BRKDIN [facility] Last Admin: 10/16/18 09:37 Dose: 25 mg Pantoprazole Sodium (Protonix Ec Tab) 40 mg PO 0600 [facility] Last Admin: 10/16/18 09:36 Dose: 40 mg Saliva Substitute (Saliva Substitute) 0 ml PO TID PRN PRN Reason: Dry mouth Last Admin: 10/04/18 13:41 Dose: 1 ml Valproate Sodium (Depakene Oral Soln) 500 mg PO HS [facility] Last Admin: 10/13/18 21:36 Dose: 500 mg Valproate Sodium (Depakene Oral Soln) 500 mg PO DAILY [facility] Last Admin: 10/16/18 09:34 Dose: 500 mg Zolpidem Tartrate (Ambien) 5 mg PO [facility]; Protocol Last Admin: 10/15/18 22:03 Dose: 5 mg - Labs Labs: 10/16/18 08:15 10/16/18 08:15 - Constitutional Appears: Non-toxic, No Acute Distress - Eye Exam Eye Exam: EOMI, PERRL - ENT Exam ENT Exam: Mucous Membranes Moist - Respiratory Exam Respiratory Exam: Clear to Ausculation Bilateral. absent: Rales, Rhonchi, Wheezes - Cardiovascular Exam Cardiovascular Exam: RRR, +S1, +S2 - GI/Abdominal Exam GI & Abdominal Exam: Soft, Normal Bowel Sounds. absent: Distended, Firm, Guarding, Rigid, Tenderness, Organomegaly - Extremities Exam Extremities Exam: Normal Inspection. absent: Pedal Edema - Neurological Exam Neurological Exam: Alert, Awake - Psychiatric Exam Psychiatric exam: Anxious - Skin Skin Exam: Dry, Warm Assessment and Plan - Assessment and Plan (Free Text) Assessment: Patient is a 48yo female with PMHx significant for right breast cancer s/p right mastectomy with chemoXRT in 2003, right breast reconstruction 2012, and chronic right arm lymphedema presenting with difficulty swallowing. -Dysphagia, improved Plan: -Patient has been refusing pureed diet - has been bringing food from home which patient has been witnessed to be eating without difficulty -Advance diet to soft diet, OK for patient to have food from home -Ongoing psychiatric work up and treatment -Pathology from EGD unremarkable -Continue PPI <PaulinoRenita fiorel V - Last Filed: 10/16/18 23:48> Objective - Vital Signs/Intake and Output Vital Signs (last 24 hours): Temp Pulse Resp BP Pulse Ox 98.0 F 73 20 113/90 99 10/16/18 06:56 10/16/18 06:56 10/16/18 06:56 10/16/18 06:56 09/21/18 10:15 - Medications Medications: Current Medications Alprazolam (Xanax) 0.25 mg PO BID [facility]; Protocol Stop: 10/23/18 09:16 Last Admin: 10/16/18 17:06 Dose: Not Given Alprazolam (Xanax) 0.25 mg PO HS [facility]; Protocol Last Admin: 10/16/18 21:30 Dose: 0.25 mg Bacitracin (Bacitracin) 1 gm TOP BID [facility] Last Admin: 10/16/18 15:01 Dose: Not Given Chlorpromazine (Thorazine) 50 mg IM Q6H PRN; Protocol PRN Reason: Agitation Last Admin: 10/16/18 16:23 Dose: 50 mg Chlorpromazine (Thorazine) 50 mg PO Q6H PRN; Protocol PRN Reason: psychosis/agitation Last Admin: 10/11/18 05:28 Dose: 50 mg Clozapine (Clozaril) 200 mg PO HS [facility]; Protocol Last Admin: 10/16/18 21:29 Dose: 200 mg Clozapine (Clozaril) 100 mg PO QAM [facility]; Protocol Last Admin: 10/16/18 11:11 Dose: 100 mg Fluoxetine HCl (Prozac) 40 mg PO DAILY [facility] Last Admin: 10/16/18 09:37 Dose: 40 mg Folic Acid (Folic Acid) 1 mg PO DAILY [facility] Last Admin: 10/16/18 09:36 Dose: 1 mg Home Med (Home Med) 0.8 unit SC Q2W [facility] Last Admin: 10/14/18 11:49 Dose: 0.8 unit Levothyroxine Sodium (Synthroid) 100 mcg PO 0600 [facility] Last Admin: 10/16/18 09:37 Dose: 100 mcg Magnesium Oxide (Mag-Ox) 400 mg PO BID [facility] Last Admin: 10/16/18 17:05 Dose: Not Given Metoprolol Tartrate (Lopressor) 25 mg PO BRKDIN [facility] Last Admin: 10/16/18 17:05 Dose: Not Given Pantoprazole Sodium (Protonix Ec Tab) 40 mg PO 0600 DAT Last Admin: 10/16/18 09:36 Dose: 40 mg Saliva Substitute (Saliva Substitute) 0 ml PO TID PRN PRN Reason: Dry mouth Last Admin: 10/04/18 13:41 Dose: 1 ml Valproate Sodium (Depakene Oral Soln) 500 mg PO HS DAT Last Admin: 10/16/18 21:30 Dose: Not Given Valproate Sodium (Depakene Oral Soln) 500 mg PO DAILY [facility] Last Admin: 10/16/18 09:34 Dose: 500 mg Zolpidem Tartrate (Ambien) 5 mg PO HS [facility]; Protocol Last Admin: 10/16/18 21:29 Dose: 5 mg - Labs Labs: 10/16/18 08:15 10/16/18 08:15 Attending/Attestation - Attestation I have personally seen and examined this patient.: Yes I have fully participated in the care of the patient.: Yes I have reviewed all pertinent clinical information, including history, physical exam and plan: Yes Notes (Text): This is an addendum to GI progress report dictated by the GI Fellow. The patient was seen and examined earlier. Medical records, lab studies, imagings were reviewed. Last 24 hours events reviewed. Agreed with the above treatment plan as outlined in GI Fellow 's notes with the addition of the following 10/16/18 23:48
--- NOTE | 2018-10-16 13:53 | PCM.EEG ---
Electroencephalogram Report - Electroencephalogram Report Procedure Date: 10/16/18 Medication: Xanax, Depakote, Clozaril. Interpretation: Technical Information: This was a 21 -channel EEG, 1-channel EKG routine EEG performed using an CohBar machine. Electrodes were applied using the 10/20 international placement system. Start; 11;40 End; 12;25 Total; 45 min Clinical Information: Alter mental status EEG Detail: During active states, the EEG contained symmetric 10-20 Hz,20-30 uV activity seen bi-frontally. . During resting wakefulness there was a symmetric posterior dominant rhythm at 8 to 9 Hz, 30-50 uV, which was reactive to eye opening and closing. . Drowsiness (12;12) was associated with fragmentation of the posterior dominant rhythm and with slow roving eye movements. Hyperventilation was not performed. Photic stimulation was performed and there were no changes on the record. Interictal activity; none Focal abnormality; none Impression: Normal awake and drowsy electroencephalogram.
--- NOTE | 2018-10-16 13:57 | PN ---
DATE: 10/16/2018 SUBJECTIVE: The patient is in bed in no acute distress, was seen earlier today in the psychiatric floor. She is on One on one. It is very difficult to communicate with this patient; however, the nursing staff states that she does not have frequency. No urinary symptoms have been reported. PHYSICAL EXAMINATION: VITAL SIGNS: Temperature is 98, blood pressure is 113/90, respiratory of 18. HEENT: Unremarkable. NECK: Supple. LUNGS: Have decreased breath sounds. HEART: Normal S1 and S2. ABDOMEN: Soft and nontender. LABORATORY EXAMINATION: Reveals the patient's white count is 3.6 and hemoglobin of 11. The patient's HIV is negative. RPR is negative. Microbiology is noted. Review of orders reveals the patient to be off of antibiotics. ASSESSMENT AND PLAN: This is a 48-year-old female with stage III right breast cancer status post right mastectomy and chemo radiation and the right breast reconstruction, chronic right arm lymphedema presenting with difficulty swallowing, has aspiration of schizophrenic disorder, asymptomatic bacteriuria hypertension, , breast cancer status post radiation therapy. Currently off of antibiotics. Afebrile. Will follow closely with you. Scotty James MD
--- NOTE | 2018-10-16 14:55 | CP.PCM.PN ---
Subjective - Date & Time of Evaluation Date of Evaluation: 10/16/18 Time of Evaluation: 14:54 - Subjective Subjective: Nephrology Consultation Note: Assessment: Stable Acute Kidney Injury (N17.9) likely due to pre-renal state: resolved Hypokalemia hx of HTN Ca breast s/p radiation and Rt arm lymphedema dysphagia psyhosis hyperlipidemia UTI Plan No acute need for renal replacement therapy at this time. . Hypertension control with meds as ordered. Maintain hemodynamics stable. Avoid hypotension. no ACEI/ARB due to TERESA. hold hctz due to pre renal state. inderal changed to lopressor bid. mildley elevated plasma metanephrines likely due to current illness/stress. check 24 hr urine as well but pt is unable to do. will defer for later once she is cooperative and able to follow commands Monitor Input/Output, daily weights and renal function with basic metabolic panel pt to be encouraged to drink more water. d/w staff pt seen by ID for UTI gave a dose of KDUR Dose meds/antibiotics for improved GFR. Glycemic control Further work up/management as per primary team Thanks for allowing me to participate in care of your patient. Please call if any Qs. had d/w team Dr Johnson Gibbs Office: [phone] Chief Complaint; unable to obtain Reason for consult: Acute Kidney Injury HPI: Pt is a 48 F with hx of hypertension, Ca breast s/p radiation and Rt arm lymphedema presented with complaints of difficulty swallowing, seen by GI and heme/onc, transferred to U for psychosis and noted to have higher Cr 1.6 Denies OTC/herbal meds or NSAIDs No recent iodinated contrast exposure. No obvious episodes of low BP. renal consult for TERESA ROS: pt unable to provide any hx. mumbling incomprehensibly Physical Examination: General Appearance: in no acute respiratory distress Vitals reviewed and noted as below Head; Atraumatic, normocephalic ENT: no ulcers no thrush. Tongue is midline. Oropharynx: no rash or ulcers. EYES: Pupils are equal, round and reactive to light accommodation. Eye muscles and extraocular movement intact. Sclera is anicteric. Neck; supple no lymphadenopathy, no thyromegaly or bruit Lungs: Normal respiratory rate/effort. Breath sounds bilateral equal and clear Heart: Normal rate. s1s2 normal. No rub or gallop. Extremities: no edema. No varicose veins. Rt arm lymphedema Neurological: Patient is awake Skin: Warm and dry. Normal turgor. No rash. Palpitation: Normal elasticity for age Abdomen: Abdomen is soft. Bowel sounds +. There is no abdominal tenderness, no guarding/rigidity no organomegaly Psych: lack insight. flat affect. mumbling incomprehensibly MSK: no joint tenderness or swelling. Digits and nails normal, no deformity : kidney or bladder not palpable Labs/imaging reviewed. Past medical history, past surgical history, family history, social history, allergy reviewed and noted as below Family hx: no hx of CKD. Rest non-contributory Objective - Vital Signs/Intake and Output Vital Signs (last 24 hours): Temp Pulse Resp BP Pulse Ox 98.0 F 73 20 113/90 99 10/16/18 06:56 10/16/18 06:56 10/16/18 06:56 10/16/18 06:56 09/21/18 10:15 - Medications Medications: Current Medications Alprazolam (Xanax) 0.25 mg PO BID [facility]; Protocol Stop: 10/23/18 09:16 Last Admin: 10/16/18 09:36 Dose: 0.25 mg Alprazolam (Xanax) 0.25 mg PO HS [facility]; Protocol Bacitracin (Bacitracin) 1 gm TOP BID [facility] Last Admin: 10/16/18 09:33 Dose: 1 oin Chlorpromazine (Thorazine) 50 mg IM Q6H PRN; Protocol PRN Reason: Agitation Last Admin: 10/16/18 08:08 Dose: 50 mg Chlorpromazine (Thorazine) 50 mg PO Q6H PRN; Protocol PRN Reason: psychosis/agitation Last Admin: 10/11/18 05:28 Dose: 50 mg Clozapine (Clozaril) 200 mg PO HS [facility]; Protocol Last Admin: 10/15/18 22:02 Dose: 200 mg Clozapine (Clozaril) 100 mg PO QAM [facility]; Protocol Last Admin: 10/16/18 11:11 Dose: 100 mg Fluoxetine HCl (Prozac) 40 mg PO DAILY [facility] Last Admin: 10/16/18 09:37 Dose: 40 mg Folic Acid (Folic Acid) 1 mg PO DAILY [facility] Last Admin: 10/16/18 09:36 Dose: 1 mg Home Med (Home Med) 0.8 unit SC Q2W [facility] Last Admin: 10/14/18 11:49 Dose: 0.8 unit Levothyroxine Sodium (Synthroid) 100 mcg PO 0600 [facility] Last Admin: 10/16/18 09:37 Dose: 100 mcg Magnesium Oxide (Mag-Ox) 400 mg PO BID [facility] Last Admin: 10/16/18 09:35 Dose: Not Given Metoprolol Tartrate (Lopressor) 25 mg PO BRKDIN [facility] Last Admin: 10/16/18 09:37 Dose: 25 mg Pantoprazole Sodium (Protonix Ec Tab) 40 mg PO 0600 [facility] Last Admin: 10/16/18 09:36 Dose: 40 mg Saliva Substitute (Saliva Substitute) 0 ml PO TID PRN PRN Reason: Dry mouth Last Admin: 10/04/18 13:41 Dose: 1 ml Valproate Sodium (Depakene Oral Soln) 500 mg PO [facility] Last Admin: 10/13/18 21:36 Dose: 500 mg Valproate Sodium (Depakene Oral Soln) 500 mg PO DAILY [facility] Last Admin: 10/16/18 09:34 Dose: 500 mg Zolpidem Tartrate (Ambien) 5 mg PO [facility]; Protocol Last Admin: 10/15/18 22:03 Dose: 5 mg - Labs Labs: 10/16/18 08:15 10/16/18 08:15
--- NOTE | 2018-10-16 15:13 | PCM.PYCHPN ---
Psychiatric Progress Note - Psychiatric Progress Note Patient seen today, length of contact: 30 minutes Patient Chief Complaint: "I am okay" Problems Identified/Issues Discussed: this account underwriter attempted to discuss suicide/ homicide prevention, past psychiatric h/o, current psychiatric symptoms, medical problems, risk/benefits and alternatives of medications, medications compliance, coping strategies, substance abuse h/o, relapse prevention, importance of follow up with ps ychiatrist and therapist, discharge plan. Medical Problems: pt was dehydrated, but doing better dysphagia is better UTI, patient completed course of antibiotics urine analysis showed leukocyte esterase again on 10/01/2018, Infectious disease wants to observe patient without antibiotics, discussed with 10/10/18 neurology consult was called, pt is not improving for the past 3weeks CT scan at the time of admission 09/14/18 was WNL. Discussed with Dr. Deleon 10/14/2018: MRI of the brain, this account underwriter is not sure if patient will be able to tolerate that, staff educated about Thorazine and benadryl stat prior MRI EEG this account underwriter is not sure if patient will be able to tolerate that Input appreciated Diagnostic Results: 09/14/18 09:10 09/15/18 08:00 Lab Results 09/15/18 08:00: Sodium 140, Potassium 4.0, Chloride 102, Carbon Dioxide 28, Anion Gap 14, BUN 15, Creatinine 1.2, Est GFR ( Amer) 58, Est GFR (Non-Af Amer) 48, Random Glucose 97, Calcium 9.8 09/14/18 17:40: Urine Color Yellow, Urine Appearance Sl cloudy, Urine pH 6.0, Ur Specific [place] 1.010, Urine Protein Negative, Urine Glucose (UA) Negative, Urine Ketones Negative, Urine Blood Small H, Urine Nitrate Positive H, Urine Bilirubin Negative, Urine Urobilinogen 0.2, Ur Leukocyte Esterase Small H, Urine RBC 5 - 10, Urine WBC 20 - 25, Ur Epithelial Cells 10 - 12, Urine Bacteria Many 09/14/18 09:10: RPR Nonreactive 09/14/18 09:10: TSH 3rd Generation 5.59 H 09/14/18 09:10: Sodium 140, Potassium 4.0, Chloride 104, Carbon Dioxide 21, Anion Gap 18, BUN 15, Creatinine 1.6 H, Est GFR ( Amer) 42, Est GFR (Non- Af Amer) 35, Random Glucose 85, Calcium 10.0, Phosphorus 2.8, Magnesium 1.6 L, Total Bilirubin 0.5, AST 89 H D, ALT 57 H, Alkaline Phosphatase 88, Total Protein 8.0, Albumin 4.4, Globulin 3.6, Albumin/Globulin Ratio 1.2, Triglycerides 102, Cholesterol 234 H, LDL Cholesterol Direct 155 H, HDL Cholesterol 60 09/14/18 09:10: WBC 4.7 D, RBC 4.39, Hgb 12.4, Hct 37.8, MCV 86.1, MCH 28.2, MCHC 32.8, RDW 16.4 H, Plt Count 360, MPV 9.4, Gran % 50.8, Lymph % (Auto) 34.7, Winkler % (Auto) 13.4 H, Eos % (Auto) 0.9 L, Baso % (Auto) 0.2, Gran # 2.39, Lymph # (Auto) 1.6, Winkler # (Auto) 0.6, Eos # (Auto) 0.0, Baso # (Auto) 0.01 Microbiology 09/14/18 17:40 Urine Urine Culture - Preliminary Gram Negative [facility] Laboratory Results - last 24 hr 09/19/18 09:55 WBC 4.5 RBC 4.35 Hgb 12.2 Hct 38.3 MCV 88.0 MCH 28.0 MCHC 31.9 RDW 16.6 H Plt Count 318 MPV 9.6 Gran % 54.3 Lymph % (Auto) 30.0 Winkler % (Auto) 14.8 H Eos % (Auto) 0.7 L Baso % (Auto) 0.2 Gran # 2.43 Lymph # (Auto) 1.3 Winkler # (Auto) 0.7 H Eos # (Auto) 0.0 Baso # (Auto) 0.01 Abnormal Lab Results 09/22/18 09/22/18 07:30 07:30 WBC 3.4 L D RBC 4.34 Hgb 12.2 Hct 37.4 MCV 86.2 MCH 28.1 MCHC 32.6 RDW 16.5 H Plt Count 373 MPV 9.7 Sodium 141 Potassium 5.0 Chloride 107 Carbon Dioxide 25 Anion Gap 14 BUN 18 Creatinine 1.5 H Est GFR ( Amer) 45 Est GFR (Non-Af Amer) 37 Random Glucose 98 Calcium 10.2 Laboratory Results - last 72 hr 09/25/18 14:47 POC Glucose (mg/dL) 94 Vital Signs Temp Pulse Resp BP Pulse Ox 09/27/18 16:00 52 L 108/81 09/27/18 08:40 84 122/67 09/27/18 07:00 97.3 F L 84 18 122/67 09/26/18 08:04 121 H 136/114 H 09/26/18 07:26 98.2 F 54 L 22 136/114 H 09/25/18 09:08 80 124/70 09/24/18 16:00 93 H 112/74 09/24/18 09:17 97/50 L 09/24/18 07:20 97.1 F L 82 16 97/50 L 09/24/18 07:18 97.1 F L 82 20 97/50 L 09/23/18 16:00 86 110/67 09/23/18 06:49 97.7 F 77 20 114/69 09/22/18 16:00 83 103/57 L 09/22/18 12:26 97 H 110/72 09/21/18 10:21 90 116/71 09/21/18 10:15 98.4 F 90 20 116/71 99 09/20/18 15:45 100 H 95/70 L 09/20/18 10:04 93 H 146/96 H 09/20/18 06:48 98.1 F 79 16 98/60 L 09/19/18 16:00 60 116/88 09/19/18 07:28 97.3 F L 91 H 20 115/75 09/17/18 15:00 73 H 128/106 H 09/17/18 09:30 68 116/62 09/17/18 07:25 97.1 F L 80 18 92/58 L 09/16/18 16:00 102 H 120/81 09/16/18 09:47 104 H 124/99 H 09/16/18 07:17 98.0 F 87 18 98/59 L 09/15/18 09:07 103 H 106/70 09/15/18 07:00 97.8 F 105 H 19 86/60 L 09/14/18 16:28 90 139/118 H 09/14/18 07:00 97.9 F 60 17 115/72 09/13/18 08:30 114 H 20 129/100 H 09/13/18 07:00 98.5 F 55 L 22 169/114 H 09/13/18 06:50 55 L 169/114 H 09/12/18 16:11 97.2 F L 80 20 114/64 09/12/18 15:39 20 Abnormal Lab Results 09/29/18 19:14 WBC 4.8 RBC 4.34 Hgb 12.3 Hct 38.4 MCV 88.5 MCH 28.3 MCHC 32.0 RDW 16.7 H Plt Count 261 MPV 10.7 Gran % 39.9 L Lymph % (Auto) 42.0 H Winkler % (Auto) 15.8 H Eos % (Auto) 1.9 Baso % (Auto) 0.4 Gran # 1.90 Lymph # (Auto) 2.0 Winkler # (Auto) 0.8 H Eos # (Auto) 0.1 Baso # (Auto) 0.02 Abnormal Lab Results 10/01/18 10/01/18 10/01/18 07:50 07:50 07:50 WBC 3.2 L D RBC 4.39 Hgb 12.2 Hct 38.8 MCV 88.4 MCH 27.8 MCHC 31.4 RDW 16.7 H Plt Count 280 MPV 9.9 Sodium 141 Potassium 4.2 Chloride 108 H Carbon Dioxide 28 Anion Gap 10 BUN 16 Creatinine 1.1 Est GFR ( Amer) > 60 Est GFR (Non-Af Amer) 53 Random Glucose 98 Calcium 9.5 Thyroxine (T4) 8.4 TSH 3rd Generation 1.86 Cortisol AM Sample 10/01/18 07:50 WBC RBC Hgb Hct MCV MCH MCHC RDW Plt Count MPV Sodium Potassium Chloride Carbon Dioxide Anion Gap BUN Creatinine Est GFR ( Amer) Est GFR (Non-Af Amer) Random Glucose Calcium Thyroxine (T4) TSH 3rd Generation Cortisol AM Sample 19.5 Temp Pulse Resp BP Pulse Ox 97.9 F 113 H 20 105/72 99 10/03/18 07:17 10/03/18 09:46 10/03/18 07:17 10/03/18 09:46 09/21/18 10:15 Microbiology 10/06/18 12:17 Urine Culture - Final Urine Enterococcus Faecalis Temp Pulse Resp BP Pulse Ox 97.9 F 102 H 22 143/120 H 99 12/06/18 07:36 10/09/18 08:25 10/09/18 07:36 10/09/18 08:25 09/21/18 10:15 Laboratory Results - last 24 hr 10/09/18 09:30 WBC 5.4 D RBC 4.09 Hgb 11.3 L Hct 36.0 MCV 88.0 MCH 27.6 MCHC 31.4 RDW 16.8 H Plt Count 337 MPV 9.8 Gran % 63.5 Lymph % (Auto) 22.0 Winkler % (Auto) 12.4 H Eos % (Auto) 1.9 Baso % (Auto) 0.2 Gran # 3.43 Lymph # (Auto) 1.2 Winkler # (Auto) 0.7 H Eos # (Auto) 0.1 Baso # (Auto) 0.01 No signs of a granulocytosis Temp Pulse Resp BP Pulse Ox 97.9 F 63 20 128/91 H 99 10/10/18 07:31 10/10/18 09:43 10/10/18 07:31 10/10/18 09:43 09/21/18 10:15 Temp Pulse Resp BP Pulse Ox 97.9 F 88 16 73/49 L 99 10/14/18 06:59 10/14/18 10:09 10/14/18 06:59 10/14/18 10:09 09/21/18 10:15 Laboratory Results - last 24 hr 10/16/18 10/16/18 08:15 08:15 WBC 3.6 L D RBC 4.19 Hgb 11.7 L Hct 36.7 MCV 87.6 MCH 27.9 MCHC 31.9 RDW 16.9 H Plt Count 311 MPV 9.5 Gran % 54.0 Lymph % (Auto) 27.4 Winkler % (Auto) 13.6 H Eos % (Auto) 4.7 Baso % (Auto) 0.3 Gran # 1.95 Lymph # (Auto) 1.0 L Winkler # (Auto) 0.5 Eos # (Auto) 0.2 Baso # (Auto) 0.01 Sodium 143 Potassium 3.4 L Chloride 105 Carbon Dioxide 31 Anion Gap 11 BUN 17 Creatinine 0.9 Est GFR ( Amer) > 60 Est GFR (Non-Af Amer) > 60 Random Glucose 129 H Calcium 8.9 Phosphorus 3.3 Magnesium 2.5 H Total Bilirubin 0.3 AST 52 H ALT 46 Alkaline Phosphatase 87 Total Protein 7.9 Albumin 3.7 Globulin 4.2 Albumin/Globulin Ratio 0.9 L Triglycerides 129 Cholesterol 184 LDL Cholesterol Direct 114 HDL Cholesterol 41 Temp Pulse Resp BP Pulse Ox 98.0 F 73 20 113/90 99 10/16/18 06:56 10/16/18 06:56 10/16/18 06:56 10/16/18 06:56 09/21/18 10:15 DSM 5 Symptoms Update: Patient is a 48-year-old Samoan female with a psychiatric history of Schizoaffective disorder, multiple prior psychiatric admissions both in [place] and the [place]~ most recently hospitalized at [facility] x6 months ago, who was transferred from the medical floor after being treated from 09/10/18-09/12/18 for dysphagia. Pt was presented with depression, disorganization, paranoia, restorationism preoccupation as well as bizarre behavior. On the medical floor patient required 1:1 because she was caught drinking her urine out of the toilet. Patient was trying to punish herself because she didn't deserve to live. Patient attends outpatient psychiatric treatment of [facility]. Her most recent follow up was on September 08, 2018. Patient has been compliant with Abilify 10 mg daily, Prozac 10 mg daily Seroquel 100 mg BID as well as Abilify Maintenna last injected September 08, 2018. as per staff pt was agitated, needed to be medicated with Benadryl and Thorazine. spoke to and , EEG and MRI is required prior to ECT treatment to r/o seizure or organic causes of current presentation. (pt will need to sign consent for MRI) pt was seen by talcer who cleared pt for ECT pt was seen by PMD , pt was cleared for ECT, will hold ECT till all tests are completed GI team was called for f/u, will follow recommendations. discussed with ID 10/10/18, wants to observe patient with no antibiotics. Hem/onc was involved because patient has history of breast cancer. Dietary consult and speech and swallow eval called, pt was eating with good appetite home made food and refused to eat puree diet. 10/15/[address], pt and her (next of kin) both agreed for ECT procedure, see 10/15/18 note for more detailed information. Patient is German speaking today was staying quiet during this account underwriter assessment, then stand try to open the recycling paper can, still needs constant redirection. as per staff pt had three BM since yesterday no drooling observed today or yesterday, will continue Clozaril titration. clozaril was started 10/01/18, pt is currently on 300mg po daily. pt had EEG, Echo today, but was not able to complete MRI. Discussed with neurology team and , will follow up on recommendations. Diagnostic Results: Schizoaffective [id number]/ Medication Change: Yes (depakote resumed, xanax 0.25, clozaril increased, benadryl d/c) Medical Record Reviewed: Yes Consults ordered or reviewed: patient was seen by medical team as well as nephrology team see notes for more detailed information pt was seen by Hem/Onc pt was seen by ID team Neurology involved, discussed 10/14/2018 GI involved cardiology involved Mental Status Examination - Cognitive Function Orientation: Place Memory: Impaired Attention: Poor Concentration: Poor Association: Loose Fund of Knowledge: Poor - Mood Mood: Depressed ("I am afraid"), Anxious - Affect Affect: Constricted (labile, agitated, histrionic) - Speech Speech: Appropriate - Formal Thought Process Formal Thought Process: Hallucinations, Delusions, Paranoia, Loosening of associations - Suicidal Ideation Suicidal Ideation: No - Homicidal Ideation Homicidal Ideation: No Goal/Treatment Plan - Goal/Treatment Plan Need for Continued Stay: Remain at risks for inpatient hospitalization, Severe depression anxiety, Discharge may exacerbated symptoms, Severe functional impairment Progress Toward Problem(s) and Goals/Treatment Plan: group, milieu and supportive tx (as tolerated) Clozaril 100mg po daily and 200mg po hs, will titrate accordingly Prozac 40 mg daily for depression and anxiety xanax 0.25mg po bid and hs for restlessness seroquel discontinued 10/09/2018 Twila Maintenna was provided to patient on 09/08/18, no plan to resume Thorazine 50mg po and IM prn ECT might be helpful, and patient agreed for ECT neurology involved MRI/EEG, will f/u if pt will be able to tolerate ?UTI, ID and oncology involved GI follow up hem onc involved ID involved talcer involved SW consultation for discharge plan and social issues Family involvement, pt wanted her to participate in her care family meeting took place 09/19/[address] 10/15/18 CBC with sykjzwnrgkxn64/6/2018 no signs of a granulocytosis CBC with differential 10/16/18 no signs of agranulocytosis Patient is registered clozaril REMS Follow up on labs Will monitor closely Pt was educated about risk/benefits and alternatives of medications, coping strategies (safety plan, suicide prevention), relapse prevention, importance of follow up with psychiatrist and therapist, stay away from drugs/alcohol/smoking Estimated Date of D/C: 10/20/18
[2018-10-16] MEDS ORDERED: DiphenhydrAMINE 50 mg/ml Inj ONE (16:53)
--- NOTE | 2018-10-16 17:18 | PN ---
DATE: 10/16/2018 LOCATION: Room 508, bed 1. REASON FOR CONSULTATION: Cardiac evaluation, preop ECT, risk stratification and also abnormal EKG. SUBJECTIVE: The patient denies any chest pain, shortness of breath, or palpitation. The patient needs ECT for electroconvulsive therapy is planned and we have been requested to do cardiac evaluation and risk stratification from the Cardiology point of view. PHYSICAL EXAMINATION: VITAL SIGNS: Blood pressure 113/90, respirations 20, pulse 73, temperature 98. HEENT: Head: Normocephalic. Eyes: Pupils normal. Conjunctivae normal. NECK: JVP low. Carotid equal. THORAX: AP diameter normal. LUNGS: Clear. CARDIOVASCULAR: S1 and S2. ABDOMEN: Soft and nontender. No organomegaly. Bowel sounds normal. EXTREMITIES: No clubbing. No cyanosis. Right arm has chronic edema. LABORATORY DATA: WBC 3.6, hemoglobin 11.7, hematocrit 36.7, platelet 311. Sodium 143, potassium 3.4, BUN 17, creatinine 0.9, random sugar 129, before sugar was 105 and 98, phosphorus 3.3, magnesium 2.5. AST 52, ALT 46, total protein 79, albumin 3.7, globulin 4.2, triglyceride 129, cholesterol 184, LDL 114. EKG showed normal sinus rhythm low voltage poor R-wave progression dated 09/26/2018. Repeat EKG done on 10/15/2018, showed the same pattern. ASSESSMENT: The patient has schizoaffective disorder, history of breast cancer, status post mastectomy, wedge resection and reconstruction, history of hypothyroidism, hypertension. The patient needs electroconvulsive therapy ECT. The patient's EKG back in 2014 showed the same changes. There are no new changes. PLAN: Since there are no changes since 2014 in the EKG and the patient has no symptoms of any chest pain or any cardiac problem at this moment, so there is no absolute contraindication for ECT therapy and from cardiac point of view, the patient can go for ECT therapy at moderate risk. The patient on Zolpidem 5 mg h.s., Clozaril 200 mg by mouth h.s., 100 mg by mouth daily, valproic acid solution 500 mg daily, folic acid 1 mg daily. The patient has been given 40 mEq by mouth potassium already for low potassium, metoprolol tartrate 25 b.i.d., magnesium oxide 400 mg by mouth b.i.d., Protonix 40 mg by mouth daily, Prozac 40 mg by mouth daily, levothyroxine 100 mcg by mouth daily. We will continue the therapy and we will follow with you. Echo has been already ordered as soon as done we will follow with you. Jasmine Beth MD
--- NOTE | 2018-10-16 18:43 | CARD ---
APPROVED REPORT Date of service: 10/16/2018 EXAM: Two-dimensional and M-mode echocardiogram with Doppler and color Doppler. 2D DIMENSIONS IVSd0.8 (0.7-1.1cm)LVDd4.0 (3.9-5.9cm) PWd0.9 (0.7-1.1cm)FS (%) 26.6 % M-Mode DIMENSIONS Aortic Root2.70 (2.2-3.7cm)Aortic Cusp Exc.1.60 (1.5-2.0cm) Aortic Valve AoV Peak Rrgycpog860.0cm/Jovana Peak GR.8mmHg Mitral Valve MV E Ivicrrpb51.8cm/sMV A Adlygfhv47.1cm/sE/A ratio1.2 TDI E/Lateral E'0.0E/Medial E'0.0 Pulmonary Valve PV Peak Tedmasmp110.0cm/sPV Peak Grad.4mmHg Tricuspid Valve TR Peak Vvnxanhj401zh/sRAP [id number] Peak Gr.15mmHg [id number] LEFT VENTRICLE The left ventricle is normal size. The left ventricular function is normal. The left ventricular ejection fraction is within the normal range.LV Ej.Fr: 55%. RIGHT VENTRICLE The right ventricle is normal size. The right ventricular systolic function is normal. ATRIA The left atrium size is normal. The right atrium size is normal. AORTIC VALVE The aortic valve is normal in structure. MITRAL VALVE The mitral valve is normal in structure. Mitral regurgitation is trace to mild. TRICUSPID VALVE The tricuspid valve is normal in structure. There is trace tricuspid regurgitation. PERICARDIAL EFFUSION There is no pericardial effusion. <Conclusion> The left ventricle is normal size. The left ventricular function is normal. The left ventricular ejection fraction is within the normal range.LV Ej.Fr: 55%. The right ventricle is normal size. The right ventricular systolic function is normal. The left atrium size is normal. The right atrium size is normal. The aortic valve is normal in structure. The mitral valve is normal in structure. Mitral regurgitation is trace to mild. The tricuspid valve is normal in structure. There is trace tricuspid regurgitation. There is no pericardial effusion. Good Quality Echoes could not be obtained due to Patients Lack of Cooperation
[2018-10-17] MEDS: Pantoprazole 40 mg EC Tab PO SCH (06:59)
[2018-10-17] MEDS: Levothyroxine 100 MCG TAB PO SCH ×2 (06:59→15:44)
[2018-10-17] MEDS: Bacitracin Ointment 30 GM TUBE TOP SCH ×2 (08:07→16:01)
[2018-10-17] MEDS: Valproic Acid 250 mg/5 ml UD Cup PO SCH ×2 (08:07→21:24)
[2018-10-17] MEDS: Magnesium Oxide 400 mg Tab UD PO SCH ×2 (08:08→15:46)
[2018-10-17] MEDS ORDERED: DiphenhydrAMINE 50 mg/ml Inj IM STA (10:17)
--- NOTE | 2018-10-17 10:40 | CP.PCM.PN ---
<Fred Eden - Last Filed: 10/17/18 14:11> Subjective - Date & Time of Evaluation Date of Evaluation: 10/17/18 Time of Evaluation: 10:38 - Subjective Subjective: Neurology Progress Note for Dr. Middleton Patient seen and examined at bedside. No acute overnight events. EEG completed. Objective - Vital Signs/Intake and Output Vital Signs (last 24 hours): Temp Pulse Resp BP Pulse Ox 98.0 F 73 20 113/90 99 10/16/18 06:56 10/16/18 06:56 10/16/18 06:56 10/16/18 06:56 09/21/18 10:15 - Medications Medications: Current Medications Alprazolam (Xanax) 0.25 mg PO BID DAT; Protocol Stop: 10/23/18 09:16 Last Admin: 10/17/18 08:08 Dose: Not Given Alprazolam (Xanax) 0.25 mg PO HS DAT; Protocol Last Admin: 10/16/18 21:30 Dose: 0.25 mg Bacitracin (Bacitracin) 1 gm TOP BID DAT Last Admin: 10/17/18 08:07 Dose: 1 oin Chlorpromazine (Thorazine) 50 mg IM Q6H PRN; Protocol PRN Reason: Agitation Last Admin: 10/16/18 16:23 Dose: 50 mg Chlorpromazine (Thorazine) 50 mg PO Q6H PRN; Protocol PRN Reason: psychosis/agitation Last Admin: 10/11/18 05:28 Dose: 50 mg Clozapine (Clozaril) 200 mg PO HS DAT; Protocol Last Admin: 10/16/18 21:29 Dose: 200 mg Clozapine (Clozaril) 100 mg PO QAM [facility]; Protocol Last Admin: 10/16/18 11:11 Dose: 100 mg Fluoxetine HCl (Prozac) 40 mg PO DAILY DAT Last Admin: 10/17/18 08:08 Dose: Not Given Folic Acid (Folic Acid) 1 mg PO DAILY DAT Last Admin: 10/17/18 08:08 Dose: Not Given Home Med (Home Med) 0.8 unit SC Q2W DAT Last Admin: 10/14/18 11:49 Dose: 0.8 unit Levothyroxine Sodium (Synthroid) 100 mcg PO 0600 DAT Last Admin: 10/17/18 06:59 Dose: Not Given Magnesium Oxide (Mag-Ox) 400 mg PO BID [facility] Last Admin: 10/17/18 08:08 Dose: Not Given Metoprolol Tartrate (Lopressor) 25 mg PO BRKDIN [facility] Last Admin: 10/17/18 08:08 Dose: Not Given Pantoprazole Sodium (Protonix Ec Tab) 40 mg PO 0600 [facility] Last Admin: 10/17/18 06:59 Dose: Not Given Saliva Substitute (Saliva Substitute) 0 ml PO TID PRN PRN Reason: Dry mouth Last Admin: 10/04/18 13:41 Dose: 1 ml Valproate Sodium (Depakene Oral Soln) 500 mg PO HS [facility] Last Admin: 10/16/18 21:30 Dose: Not Given Valproate Sodium (Depakene Oral Soln) 500 mg PO DAILY [facility] Last Admin: 10/17/18 08:07 Dose: Not Given Zolpidem Tartrate (Ambien) 5 mg PO [facility]; Protocol Last Admin: 10/16/18 21:29 Dose: 5 mg - Labs Labs: 10/16/18 08:15 10/16/18 08:15 - Constitutional Appears: No Acute Distress - Head Exam Head Exam: NORMAL INSPECTION - Eye Exam Eye Exam: EOMI, Normal appearance, PERRL - ENT Exam ENT Exam: Mucous Membranes Moist, Normal Exam - Respiratory Exam Respiratory Exam: Clear to Ausculation Bilateral, NORMAL BREATHING PATTERN - GI/Abdominal Exam GI & Abdominal Exam: Soft, Normal Bowel Sounds - Extremities Exam Extremities Exam: Normal Inspection - Back Exam Back Exam: NORMAL INSPECTION - Neurological Exam Neurological Exam: Alert, Awake - Psychiatric Exam Psychiatric exam: Anxious - Skin Skin Exam: Normal Color Assessment and Plan - Assessment and Plan (Free Text) Assessment: 48 yo F with PMH of hypertension, Ca breast s/p radiation, and Rt arm lymphedema admitted to psych for schizoaffective disorder. Neurology consulted for altered mental status and ECT clearance. Plan: - Patient is cleared for ECT as EEG is normal - Delirium likely 2/2 psychosis - Patient unable to tolerate MRI - Ammonia level WNL Patient seen and discussed in detail with Dr. Middleton. Richardson Eden, DO PGY2 <Lyle Middleton - Last Filed: 10/19/18 13:35> Objective - Vital Signs/Intake and Output Vital Signs (last 24 hours): Temp Pulse Resp BP Pulse Ox 98.8 F 70 18 120/70 96 10/17/18 23:53 10/19/18 09:18 10/17/18 14:15 10/19/18 09:18 10/17/18 14:15 - Medications Medications: Current Medications Alprazolam (Xanax) 0.25 mg PO BID [facility]; Protocol Stop: 10/23/18 09:16 Last Admin: 10/19/18 09:25 Dose: 0.25 mg Alprazolam (Xanax) 0.25 mg PO HS [facility]; Protocol Last Admin: 10/18/18 21:21 Dose: 0.25 mg Amoxicillin/Clavulanate Potassium (Augmentin 875 Mg-125 Mg Tab) 1 tab PO Q12 [facility]; Protocol Last Admin: 10/19/18 05:04 Dose: 1 tab Bacitracin (Bacitracin) 1 gm TOP BID [facility] Last Admin: 10/18/18 17:00 Dose: Not Given Chlorpromazine (Thorazine) 50 mg IM Q6H PRN; Protocol PRN Reason: Agitation Last Admin: 10/17/18 23:40 Dose: 50 mg Chlorpromazine (Thorazine) 50 mg PO Q6H PRN; Protocol PRN Reason: psychosis/agitation Last Admin: 10/19/18 05:16 Dose: 50 mg Clozapine (Clozaril) 200 mg PO HS [facility]; Protocol Last Admin: 10/18/18 21:22 Dose: 200 mg Clozapine (Clozaril) 150 mg PO QAM [facility]; Protocol Last Admin: 10/19/18 09:15 Dose: 150 mg Fluoxetine HCl (Prozac) 40 mg PO DAILY [facility] Last Admin: 10/19/18 09:16 Dose: 40 mg Folic Acid (Folic Acid) 1 mg PO DAILY [facility] Last Admin: 10/19/18 09:17 Dose: 1 mg Home Med (Home Med) 0.8 unit SC Q2W [facility] Last Admin: 10/14/18 11:49 Dose: 0.8 unit Levothyroxine Sodium (Synthroid) 100 mcg PO 0600 [facility] Last Admin: 10/19/18 05:04 Dose: 100 mcg Magnesium Oxide (Mag-Ox) 400 mg PO BID [facility] Last Admin: 10/19/18 09:16 Dose: 400 mg Metoprolol Tartrate (Lopressor) 25 mg PO BRKDIN [facility] Last Admin: 10/19/18 09:18 Dose: 25 mg Pantoprazole Sodium (Protonix Ec Tab) 40 mg PO 0600 [facility] Last Admin: 10/19/18 05:04 Dose: 40 mg Saliva Substitute (Saliva Substitute) 0 ml PO TID PRN PRN Reason: Dry mouth Last Admin: 10/04/18 13:41 Dose: 1 ml Valproate Sodium (Depakene Oral Soln) 500 mg PO HS [facility] Last Admin: 10/18/18 21:21 Dose: 500 mg Zolpidem Tartrate (Ambien) 5 mg PO HS [facility]; Protocol Last Admin: 10/18/18 21:21 Dose: 5 mg - Labs Labs: 10/17/18 23:30 10/19/18 07:30 Attending/Attestation - Attestation I have personally seen and examined this patient.: Yes I have fully participated in the care of the patient.: Yes I have reviewed all pertinent clinical information, including history, physical exam and plan: Yes Notes (Text): 10/19/18 13:35 I agree with the assessment and plan. The patient is cleared for ECT. No seizures on EEG.
[2018-10-17] MEDS ORDERED: Propofol 10 mg/ml Inj (20 ML) ONE (13:07)
[2018-10-17] MEDS ORDERED: Succinylcholine 200 mg/10 ml Inj IV ONE (13:08)
[2018-10-17] MEDS ORDERED: Midazolam 2 MG/2 ML VIAL ONE (13:42)
[2018-10-17] MEDS ORDERED: Midazolam 2 MG/2 ML VIAL IVP ONE (13:52)
[2018-10-17] MEDS ORDERED: Lactated Ringer's 1,000 ML IV SCH (14:00)
--- NOTE | 2018-10-17 14:53 | CP.PCM.PN ---
<Sailaja Polo - Last Filed: 10/17/18 14:51> Subjective - Date & Time of Evaluation Date of Evaluation: 10/17/18 Time of Evaluation: 09:00 - Subjective Subjective: ID Progress Note- Dr. Oneil Patient seen and examined at bedside. No acute overnight events. Patient calmer. Resting comfortably. Objective - Vital Signs/Intake and Output Vital Signs (last 24 hours): Temp Pulse Resp BP Pulse Ox 98.4 F 99 H 18 113/68 96 10/17/18 14:15 10/17/18 14:15 10/17/18 14:15 10/17/18 14:15 10/17/18 14:15 - Medications Medications: Current Medications Alprazolam (Xanax) 0.25 mg PO BID [facility]; Protocol Stop: 10/23/18 09:16 Last Admin: 10/17/18 08:08 Dose: Not Given Alprazolam (Xanax) 0.25 mg PO HS [facility]; Protocol Last Admin: 10/16/18 21:30 Dose: 0.25 mg Bacitracin (Bacitracin) 1 gm TOP BID [facility] Last Admin: 10/17/18 08:07 Dose: 1 oin Chlorpromazine (Thorazine) 50 mg IM Q6H PRN; Protocol PRN Reason: Agitation Last Admin: 10/16/18 16:23 Dose: 50 mg Chlorpromazine (Thorazine) 50 mg PO Q6H PRN; Protocol PRN Reason: psychosis/agitation Last Admin: 10/11/18 05:28 Dose: 50 mg Clozapine (Clozaril) 200 mg PO HS [facility]; Protocol Last Admin: 10/16/18 21:29 Dose: 200 mg Clozapine (Clozaril) 150 mg PO QAM [facility]; Protocol Fluoxetine HCl (Prozac) 40 mg PO DAILY [facility] Last Admin: 10/17/18 08:08 Dose: Not Given Folic Acid (Folic Acid) 1 mg PO DAILY [facility] Last Admin: 10/17/18 08:08 Dose: Not Given Home Med (Home Med) 0.8 unit SC Q2W DAT Last Admin: 10/14/18 11:49 Dose: 0.8 unit Lactated Ringer's (Lactated Ringer's) 1,000 mls @ 75 mls/hr IV .[id number] [facility] Stop: 10/17/18 16:01 Levothyroxine Sodium (Synthroid) 100 mcg PO 0600 [facility] Last Admin: 10/17/18 06:59 Dose: Not Given Magnesium Oxide (Mag-Ox) 400 mg PO BID [facility] Last Admin: 10/17/18 08:08 Dose: Not Given Metoprolol Tartrate (Lopressor) 25 mg PO BRKDIN [facility] Last Admin: 10/17/18 08:08 Dose: Not Given Pantoprazole Sodium (Protonix Ec Tab) 40 mg PO 0600 [facility] Last Admin: 10/17/18 06:59 Dose: Not Given Saliva Substitute (Saliva Substitute) 0 ml PO TID PRN PRN Reason: Dry mouth Last Admin: 10/04/18 13:41 Dose: 1 ml Valproate Sodium (Depakene Oral Soln) [address] [facility] Last Admin: 10/16/18 21:30 Dose: Not Given Zolpidem Tartrate (Ambien) [address] [facility]; Protocol Last Admin: 10/16/18 21:29 Dose: 5 mg - Labs Labs: 10/16/18 08:15 10/16/18 08:15 - Constitutional Appears: No Acute Distress - Head Exam Head Exam: ATRAUMATIC, NORMAL INSPECTION, NORMOCEPHALIC - Eye Exam Eye Exam: EOMI, Normal appearance, PERRL - ENT Exam ENT Exam: Mucous Membranes Moist, Normal Exam - Respiratory Exam Respiratory Exam: Clear to Ausculation Bilateral, NORMAL BREATHING PATTERN - Cardiovascular Exam Cardiovascular Exam: REGULAR RHYTHM, +S1, +S2. absent: Murmur - GI/Abdominal Exam GI & Abdominal Exam: Soft, Normal Bowel Sounds. absent: Tenderness - Neurological Exam Neurological Exam: Alert, Awake, CN II-XII Intact, Normal Gait, Oriented x3 - Psychiatric Exam Psychiatric exam: Anxious - Skin Skin Exam: Dry, Intact, Normal Color, Warm Assessment and Plan - Assessment and Plan (Free Text) Assessment: 48 F with a PMHx Stage III Right Breast Cancer s/p right mastectomy with chemoradiation in 2003 and right breast reconstruction 2012, and chronic right arm lymphedema presenting with difficulty swallowing and exacerbation of schizoaffective disorder. Assessment asymptomatic bacteriuria with E. faecalis AMS HTN breast cancer S/P radiation therapy psychosis dyslipidemia Plan continue to monitor off antibiotics, fu with neuro workup for AMS, fu Neuro reccs <Johnathan Oneil S - Last Filed: 10/17/18 21:42> Objective - Vital Signs/Intake and Output Vital Signs (last 24 hours): Temp Pulse Resp BP Pulse Ox 98.4 F 112 H 18 109/62 96 10/17/18 14:15 10/17/18 16:01 10/17/18 14:15 10/17/18 16:01 10/17/18 14:15 - Medications Medications: Current Medications Alprazolam (Xanax) 0.25 mg PO BID [facility]; Protocol Stop: 10/23/18 09:16 Last Admin: 10/17/18 15:46 Dose: 0.25 mg Alprazolam (Xanax) 0.25 mg PO HS [facility]; Protocol Last Admin: 10/17/18 21:26 Dose: 0.25 mg Bacitracin (Bacitracin) 1 gm TOP BID [facility] Last Admin: 10/17/18 16:01 Dose: 1 oin Chlorpromazine (Thorazine) 50 mg IM Q6H PRN; Protocol PRN Reason: Agitation Last Admin: 10/16/18 16:23 Dose: 50 mg Chlorpromazine (Thorazine) 50 mg PO Q6H PRN; Protocol PRN Reason: psychosis/agitation Last Admin: 10/11/18 05:28 Dose: 50 mg Clozapine (Clozaril) 200 mg PO HS [facility]; Protocol Last Admin: 10/17/18 21:25 Dose: 200 mg Clozapine (Clozaril) 150 mg PO QAM [facility]; Protocol Last Admin: 10/17/18 15:44 Dose: 150 mg Fluoxetine HCl (Prozac) 40 mg PO DAILY [facility] Last Admin: 10/17/18 15:43 Dose: 40 mg Folic Acid (Folic Acid) 1 mg PO DAILY [facility] Last Admin: 10/17/18 08:08 Dose: Not Given Home Med (Home Med) 0.8 unit SC Q2W [facility] Last Admin: 10/14/18 11:49 Dose: 0.8 unit Levothyroxine Sodium (Synthroid) 100 mcg PO 0600 [facility] Last Admin: 10/17/18 15:44 Dose: 100 mcg Magnesium Oxide (Mag-Ox) 400 mg PO BID [facility] Last Admin: 10/17/18 15:46 Dose: Not Given Metoprolol Tartrate (Lopressor) 25 mg PO BRKDIN [facility] Last Admin: 10/17/18 16:01 Dose: Not Given Pantoprazole Sodium (Protonix Ec Tab) 40 mg PO 0600 [facility] Last Admin: 10/17/18 06:59 Dose: Not Given Saliva Substitute (Saliva Substitute) 0 ml PO TID PRN PRN Reason: Dry mouth Last Admin: 10/04/18 13:41 Dose: 1 ml Valproate Sodium (Depakene Oral Soln) 500 mg PO HS DAT Last Admin: 10/17/18 21:24 Dose: 500 mg Zolpidem Tartrate (Ambien) 5 mg PO HS [facility]; Protocol Last Admin: 10/17/18 21:26 Dose: 5 mg - Labs Labs: 10/16/18 08:15 10/16/18 08:15 Assessment and Plan - Assessment and Plan (Free Text) Assessment: Infectious diseases Attending Physician Attestation Patient seen and examined, discussed with medical support specialist. I have reviewed the patient's history of present illness, past medical, social, personal and family histories, pertinent physical exam findings, course so far in this hospital admission, pertinent laboratory and imaging results. I agree with the above findings, assessment and plan. In addition, will continue to monitor the patient off antibiotics - she has asymptomatic bacteriuria with E. faecalis.
--- NOTE | 2018-10-17 15:00 | PCM.PYCHPN ---
Psychiatric Progress Note - Psychiatric Progress Note Patient seen today, length of contact: 30 minutes Patient Chief Complaint: "I feel comfortable with you, are you going to be my doctor?" Problems Identified/Issues Discussed: this handbook writer attempted to discuss suicide/ homicide prevention, past psychiatric h/o, current psychiatric symptoms, medical problems, risk/benefits and alternatives of medications, medications compliance, coping strategies, substance abuse h/o, relapse prevention, importance of follow up with psychiatrist and therapist, discharge plan. Medical Problems: pt was dehydrated, but doing better dysphagia is better UTI, patient completed course of antibiotics urine analysis showed leukocyte esterase again on 10/01/2018, Infectious disease wants to observe patient without antibiotics, discussed with 10/10/18 neurology consult was called, pt is not improving for the past 3weeks CT scan at the time of admission 09/14/18 was WNL. Discussed with Dr. Deleon 10/14/2018: MRI of the brain was not able to tolerate, d/c by neurology discussed with 10/17/18, patient is cleared for ECT. EEG was WNL Diagnostic Results: 09/14/18 09:10 09/15/18 08:00 Lab Results 09/15/18 08:00: Sodium 140, Potassium 4.0, Chloride 102, Carbon Dioxide 28, Anion Gap 14, BUN 15, Creatinine 1.2, Est GFR ( Amer) 58, Est GFR (Non-Af Amer) 48, Random Glucose 97, Calcium 9.8 09/14/18 17:40: Urine Color Yellow, Urine Appearance Sl cloudy, Urine pH 6.0, Ur Specific [place] 1.010, Urine Protein Negative, Urine Glucose (UA) Negative, Urine Ketones Negative, Urine Blood Small H, Urine Nitrate Positive H, Urine Bilirubin Negative, Urine Urobilinogen 0.2, Ur Leukocyte Esterase Small H, Urine RBC 5 - 10, Urine WBC 20 - 25, Ur Epithelial Cells 10 - 12, Urine Bacteria Many 09/14/18 09:10: RPR Nonreactive 09/14/18 09:10: TSH 3rd Generation 5.59 H 09/14/18 09:10: Sodium 140, Potassium 4.0, Chloride 104, Carbon Dioxide 21, Anion Gap 18, BUN 15, Creatinine 1.6 H, Est GFR ( Amer) 42, Est GFR (Non- Af Amer) 35, Random Glucose 85, Calcium 10.0, Phosphorus 2.8, Magnesium 1.6 L, Total Bilirubin 0.5, AST 89 H D, ALT 57 H, Alkaline Phosphatase 88, Total Protein 8.0, Albumin 4.4, Globulin 3.6, Albumin/Globulin Ratio 1.2, Triglycerides 102, Cholesterol 234 H, LDL Cholesterol Direct 155 H, HDL Cholesterol 60 09/14/18 09:10: WBC 4.7 D, RBC 4.39, Hgb 12.4, Hct 37.8, MCV 86.1, MCH 28.2, MCHC 32.8, RDW 16.4 H, Plt Count 360, MPV 9.4, Gran % 50.8, Lymph % (Auto) 34.7, [place] % (Auto) 13.4 H, Eos % (Auto) 0.9 L, Baso % (Auto) 0.2, Gran # 2.39, Lymph # (Auto) 1.6, [place] # (Auto) 0.6, Eos # (Auto) 0.0, Baso # (Auto) 0.01 Microbiology 09/14/18 17:40 Urine Urine Culture - Preliminary Gram Negative [facility] Laboratory Results - last 24 hr 09/19/18 09:55 WBC 4.5 RBC 4.35 Hgb 12.2 Hct 38.3 MCV 88.0 MCH 28.0 MCHC 31.9 RDW 16.6 H Plt Count 318 MPV 9.6 Gran % 54.3 Lymph % (Auto) 30.0 [place] % (Auto) 14.8 H Eos % (Auto) 0.7 L Baso % (Auto) 0.2 Gran # 2.43 Lymph # (Auto) 1.3 [place] # (Auto) 0.7 H Eos # (Auto) 0.0 Baso # (Auto) 0.01 Abnormal Lab Results 09/22/18 09/22/18 07:30 07:30 WBC 3.4 L D RBC 4.34 Hgb 12.2 Hct 37.4 MCV 86.2 MCH 28.1 MCHC 32.6 RDW 16.5 H Plt Count 373 MPV 9.7 Sodium 141 Potassium 5.0 Chloride 107 Carbon Dioxide 25 Anion Gap 14 BUN 18 Creatinine 1.5 H Est GFR ( Amer) 45 Est GFR (Non-Af Amer) 37 Random Glucose 98 Calcium 10.2 Laboratory Results - last 72 hr 09/25/18 14:47 POC Glucose (mg/dL) 94 Vital Signs Temp Pulse Resp BP Pulse Ox 09/27/18 16:00 52 L 108/81 09/27/18 08:40 84 122/67 09/27/18 07:00 97.3 F L 84 18 122/67 09/26/18 08:04 121 H 136/114 H 09/26/18 07:26 98.2 F 54 L 22 136/114 H 09/25/18 09:08 80 124/70 09/24/18 16:00 93 H 112/74 09/24/18 09:17 97/50 L 09/24/18 07:20 97.1 F L 82 16 97/50 L 09/24/18 07:18 97.1 F L 82 20 97/50 L 09/23/18 16:00 86 110/67 09/23/18 06:49 97.7 F 77 20 114/69 09/22/18 16:00 83 103/57 L 09/22/18 12:26 97 H 110/72 09/21/18 10:21 90 116/71 09/21/18 10:15 98.4 F 90 20 116/71 99 09/20/18 15:45 100 H 95/70 L 09/20/18 10:04 93 H 146/96 H 09/20/18 06:48 98.1 F 79 16 98/60 L 09/19/18 16:00 60 116/88 09/19/18 07:28 97.3 F L 91 H 20 115/75 09/17/18 15:00 73 H 128/106 H 09/17/18 09:30 68 116/62 09/17/18 07:25 97.1 F L 80 18 92/58 L 09/16/18 16:00 102 H 120/81 09/16/18 09:47 104 H 124/99 H 09/16/18 07:17 98.0 F 87 18 98/59 L 09/15/18 09:07 103 H 106/70 09/15/18 07:00 97.8 F 105 H 19 86/60 L 09/14/18 16:28 90 139/118 H 09/14/18 07:00 97.9 F 60 17 115/72 09/13/18 08:30 114 H 20 129/100 H 09/13/18 07:00 98.5 F 55 L 22 169/114 H 09/13/18 06:50 55 L 169/114 H 09/12/18 16:11 97.2 F L 80 20 114/64 09/12/18 15:39 20 Abnormal Lab Results 09/29/18 19:14 WBC 4.8 RBC 4.34 Hgb 12.3 Hct 38.4 MCV 88.5 MCH 28.3 MCHC 32.0 RDW 16.7 H Plt Count 261 MPV 10.7 Gran % 39.9 L Lymph % (Auto) 42.0 H [place] % (Auto) 15.8 H Eos % (Auto) 1.9 Baso % (Auto) 0.4 Gran # 1.90 Lymph # (Auto) 2.0 [place] # (Auto) 0.8 H Eos # (Auto) 0.1 Baso # (Auto) 0.02 Abnormal Lab Results 10/01/18 10/01/18 10/01/18 07:50 07:50 07:50 WBC 3.2 L D RBC 4.39 Hgb 12.2 Hct 38.8 MCV 88.4 MCH 27.8 MCHC 31.4 RDW 16.7 H Plt Count 280 MPV 9.9 Sodium 141 Potassium 4.2 Chloride 108 H Carbon Dioxide 28 Anion Gap 10 BUN 16 Creatinine 1.1 Est GFR ( Amer) > 60 Est GFR (Non-Af Amer) 53 Random Glucose 98 Calcium 9.5 Thyroxine (T4) 8.4 TSH 3rd Generation 1.86 Cortisol AM Sample 10/01/18 07:50 WBC RBC Hgb Hct MCV MCH MCHC RDW Plt Count MPV Sodium Potassium Chloride Carbon Dioxide Anion Gap BUN Creatinine Est GFR ( Amer) Est GFR (Non-Af Amer) Random Glucose Calcium Thyroxine (T4) TSH 3rd Generation Cortisol AM Sample 19.5 Temp Pulse Resp BP Pulse Ox 97.9 F 113 H 20 105/72 99 10/03/18 07:17 10/03/18 09:46 10/03/18 07:17 10/03/18 09:46 09/21/18 10:15 Microbiology 10/06/18 12:17 Urine Culture - Final Urine Enterococcus Faecalis Temp Pulse Resp BP Pulse Ox 97.9 F 102 H 22 143/120 H 99 10/09/18 07:36 10/09/18 08:25 10/09/18 07:36 10/09/18 08:25 09/21/18 10:15 Laboratory Results - last 24 hr 10/09/18 09:30 WBC 5.4 D RBC 4.09 Hgb 11.3 L Hct 36.0 MCV 88.0 MCH 27.6 MCHC 31.4 RDW 16.8 H Plt Count 337 MPV 9.8 Gran % 63.5 Lymph % (Auto) 22.0 [place] % (Auto) 12.4 H Eos % (Auto) 1.9 Baso % (Auto) 0.2 Gran # 3.43 Lymph # (Auto) 1.2 [place] # (Auto) 0.7 H Eos # (Auto) 0.1 Baso # (Auto) 0.01 No signs of a granulocytosis Temp Pulse Resp BP Pulse Ox 97.9 F 63 20 128/91 H 99 10/10/18 07:31 10/10/18 09:43 10/10/18 07:31 10/10/18 09:43 09/21/18 10:15 Temp Pulse Resp BP Pulse Ox 97.9 F 88 16 73/49 L 99 10/14/18 06:59 10/14/18 10:09 10/14/18 06:59 10/14/18 10:09 09/21/18 10:15 Laboratory Results - last 24 hr 10/16/18 10/16/18 08:15 08:15 WBC 3.6 L D RBC 4.19 Hgb 11.7 L Hct 36.7 MCV 87.6 MCH 27.9 MCHC 31.9 RDW 16.9 H Plt Count 311 MPV 9.5 Gran % 54.0 Lymph % (Auto) 27.4 [place] % (Auto) 13.6 H Eos % (Auto) 4.7 Baso % (Auto) 0.3 Gran # 1.95 Lymph # (Auto) 1.0 L [place] # (Auto) 0.5 Eos # (Auto) 0.2 Baso # (Auto) 0.01 Sodium 143 Potassium 3.4 L Chloride 105 Carbon Dioxide 31 Anion Gap 11 BUN 17 Creatinine 0.9 Est GFR ( Amer) > 60 Est GFR (Non-Af Amer) > 60 Random Glucose 129 H Calcium 8.9 Phosphorus 3.3 Magnesium 2.5 H Total Bilirubin 0.3 AST 52 H ALT 46 Alkaline Phosphatase 87 Total Protein 7.9 Albumin 3.7 Globulin 4.2 Albumin/Globulin Ratio 0.9 L Triglycerides 129 Cholesterol 184 LDL Cholesterol Direct 114 HDL Cholesterol 41 Temp Pulse Resp BP Pulse Ox 98.0 F 73 20 113/90 99 10/16/18 06:56 10/16/18 06:56 10/16/18 06:56 10/16/18 06:56 09/21/18 10:15 Temp Pulse Resp BP Pulse Ox 98.4 F 99 H 18 113/68 96 10/17/18 14:15 10/17/18 14:15 10/17/18 14:15 10/17/18 14:15 10/17/18 14:15 Laboratory Results - last 24 hr 10/17/18 09:37 Urine HCG, Qual Negative DSM 5 Symptoms Update: Patient is a 48-year-old [place] female with a psychiatric history of Schizoaffective disorder, multiple prior psychiatric admissions both in [place] and the [place]~ most recently hospitalized at [facility] x6 months ago, who was transferred from the medical floor after being treated f rom 09/10/18-09/12/18 for dysphagia. Pt was presented with depression, disorganization, paranoia, muslim preoccupation as well as bizarre behavior. On the medical floor patient required 1:1 because she was caught drinking her urine out of the toilet. Patient was trying to punish herself because she didn't deserve to live. Patient attends outpatient psychiatric treatment of [facility]. Her most recent follow up was on September 08, 2018. Patient has been compliant with Abilify 10 mg daily, Prozac 10 mg daily Seroquel 100 mg BID as well as Abilify Maintenna last injected September 08, 2018. as per staff patient was doing a little better, patient was scheduled for MRI of the brain, but became agitated, this handbook writer needed to medicate patient with haloperidol plus Ativan plus Benadryl IM. Discussed with 10/17/2018, EEG within normal limits, no need for patient to have MRI, patient was cleared for ECT. pt was seen by dental manager who cleared pt for ECT pt was seen by PMD , pt was cleared for ECT GI team was called for f/u, diet was advanced discussed with ID 10/10/18, wants to observe patient with no antibiotics. Hem/onc was involved because patient has history of breast cancer. Dietary consult and speech and swallow eval called, pt was eating with good appetite home made food and refused to eat puree diet. 10/15/[address] meeting took [address], pt and her (next of kin) both agreed for ECT procedure, see 10/15/18 note for more detailed information. Patient was seen at the morning time, presented with some improvement with thought process, patient was willing to have ECT, still patient's was called for support, patient went to the same day procedure department, this handbook writer had a meeting with patient as well as patient herself, ECT procedure was discussed in details, risk, benefits, alternatives were discussed with the patient as well as with the , both agreed and consented to ECT procedure. ECT BL #1 50%or 6xST, 0.3ms, 20Hz,6.5sec, 62.4mC, but pt did not have seizure at all, second BL tx was given 100% or 2xST, 20Hz, 8S, 76.8mC, did not have seizure at all, third bl tx given at 15% of 2.5xST 0.3ms BL, 25Hz, 8s 96.0mC, but no seizure produced, fourth treatment was given at 500%or 6xST 30Hz, 8s, 115.2mC, pt had 15seck of motor seizures. all treatment was spread with the interval of 25-30sec. pt tolerated treatment well, woke up, does not appear to be confused or agitated, was able to recognize her and this handbook writer, staff was advised to make sure that patient ate, then morning dose of medication could be given to the patient. The reason why patient did not have seizures for the first 3 treatments is most likely related to the fact that patient is on antiseizure medication Depakote as well as he got injection of Ativan 2 mg earlier on top of that patient is on Ambien at the nighttime, Depakote will be decreased by 50%, Ambien only as needed. No drooling observed/. clozaril was started 10/01/18, pt is currently on 350mg po daily. Diagnostic Results: Schizoaffective Disorder Medication Change: Yes (depakote decreased, clozaril increased) Medical Record Reviewed: Yes Consults ordered or reviewed: patient was seen by medical team as well as nephrology team see notes for more detailed information pt was seen by Hem/Onc pt was seen by ID team Neurology involved, discussed 10/14/2018 GI involved cardiology involved Mental Status Examination - Cognitive Function Orientation: Place Memory: Impaired Attention: Poor Concentration: Poor Association: Loose Fund of Knowledge: Poor - Mood Mood: Depressed ("I trust you"), Anxious - Affect Affect: Constricted (labile, agitated, histrionic) - Speech Speech: Appropriate - Formal Thought Process Formal Thought Process: Hallucinations, Delusions, Paranoia, Loosening of associations - Suicidal Ideation Suicidal Ideation: No - Homicidal Ideation Homicidal Ideation: No Goal/Treatment Plan - Goal/Treatment Plan Need for Continued Stay: Remain at risks for inpatient hospitalization, Severe depression anxiety, Discharge may exacerbated symptoms, Severe functional impairment Progress Toward Problem(s) and Goals/Treatment Plan: group, milieu and supportive tx (as tolerated) Clozaril 150mg po daily and 200mg po hs, will titrate accordingly Prozac 40 mg daily for depression and anxiety xanax 0.25mg po bid and hs for restlessness seroquel discontinued 10/09/2018 Abilify Maintenna was provided to patient on 09/08/18, no plan to resume Thorazine 50mg po and IM prn ECT #1 today, pt had about 15 sec of seizures neurology involved MRI, pt was not able to tolerate EEG, WNL ?UTI, ID and oncology involved GI follow up hem onc involved ID involved dental manager involved consultation for discharge plan and social issues Family involvement, pt wanted her to participate in her care family meeting took place 09/19/[address] 10/15/18 CBC with [id number]/6/2018 no signs of a granulocytosis CBC with differential 10/16/18 no signs of agranulocytosis Patient is registered clozaril [facility] Follow up on labs Will monitor closely Pt was educated about risk/benefits and alternatives of medications, coping strategies (safety plan, suicide prevention), relapse prevention, importance of follow up with psychiatrist and therapist, stay away from drugs/alcohol/smoking Estimated Date of D/C: 10/27/18
--- NOTE | 2018-10-17 21:40 | PN ---
DATE: 10/17/2018 LOCATION: The patient is in room 508, bed 1. REASON FOR CONSULTATION: Cardiac evaluation, preop ECT therapy, risk stratification, and abnormal EKG. SUBJECTIVE: The patient denies any chest pain, shortness of breath, or palpitation. The patient as per psychiatric evaluation needs ECT, electroconvulsive therapy, and the patient will need a cardiac evaluation for this therapy. Clinically, the patient denies any cardiac symptoms. PHYSICAL EXAMINATION VITAL SIGNS: Blood pressure 113/68, respirations 18, pulse 99, temperature 98.4. HEENT: Head is normocephalic. Eyes, pupils normal. Conjunctivae normal. Nose and throat normal. NECK: JVP low. Carotids equal. THORAX: AP diameter normal. LUNGS: Clear. CARDIOVASCULAR: S1 and S2. ABDOMEN: Soft. No tenderness. No organomegaly. Bowel sounds normal. EXTREMITIES: No clubbing. No cyanosis. LABORATORY DATA: WBC 3.6, hemoglobin 11.7, hematocrit 36.7, platelets 311. Sodium 143, potassium 3.4 was yesterday, BUN 17, creatinine 0.9. Magnesium 2.5. Random glucose 129. EKG showed normal sinus rhythm, low voltage, poor R-wave progression. Repeat EKG also showed the same. DIAGNOSES: Schizoaffective disorder; history of breast cancer, status post mastectomy, wedge resection and reconstruction of the breast; history of hypothyroidism; hypertension. PLAN: The patient's EKG back in 2014 also showed the same changes. There are no changes since that time and clinically, the patient's cardiac status is stable, and we have already mentioned the patient can go for ECT therapy as a moderate risk, and the patient's potassium is low; I will give potassium 40 p.o. now, and other medications will be the same including metoprolol 25 b.i.d. The patient received 40 mg p.o. potassium yesterday. So, we will repeat SMA-7, magnesium, phosphorus in the morning and will follow with you. Jasmine Beth MD
--- NOTE | 2018-10-17 23:33 | CP.PCM.PN ---
Subjective - Date & Time of Evaluation Date of Evaluation: 10/17/18 Time of Evaluation: 23:29 - Subjective Subjective: Temp 102*F. Medical record was reviewed. Resident's orders co- signed. Talked to primary nurse. As per whom IV antibiotics can not be given as per policy. ordered CBC with Diff, CXR, Blood cultures. Nurse will call in the morning. Will give one dose of Zyvox po now. Urine culture result of 10/06/18 shows growth of Enterococcus Fecalis sensitive to Zyvox, Ampicillin, Vancomycin. Objective - Vital Signs/Intake and Output Vital Signs (last 24 hours): Temp Pulse Resp BP Pulse Ox 102.9 F H 112 H 18 109/62 96 10/17/18 22:53 10/17/18 16:01 10/17/18 14:15 10/17/18 16:01 10/17/18 14:15 - Medications Medications: Current Medications Alprazolam (Xanax) 0.25 mg PO BID DAT; Protocol Stop: 10/23/18 09:16 Last Admin: 10/17/18 15:46 Dose: 0.25 mg Alprazolam (Xanax) 0.25 mg PO HS DAT; Protocol Last Admin: 10/17/18 21:26 Dose: 0.25 mg Bacitracin (Bacitracin) 1 gm TOP BID DAT Last Admin: 10/17/18 16:01 Dose: 1 oin Chlorpromazine (Thorazine) 50 mg IM Q6H PRN; Protocol PRN Reason: Agitation Last Admin: 10/16/18 16:23 Dose: 50 mg Chlorpromazine (Thorazine) 50 mg PO Q6H PRN; Protocol PRN Reason: psychosis/agitation Last Admin: 10/11/18 05:28 Dose: 50 mg Clozapine (Clozaril) 200 mg PO HS DAT; Protocol Last Admin: 10/17/18 21:25 Dose: 200 mg Clozapine (Clozaril) 150 mg PO QAM DAT; Protocol Last Admin: 10/17/18 15:44 Dose: 150 mg Fluoxetine HCl (Prozac) 40 mg PO DAILY DAT Last Admin: 10/17/18 15:43 Dose: 40 mg Folic Acid (Folic Acid) 1 mg PO DAILY DAT Last Admin: 10/17/18 08:08 Dose: Not Given Home Med (Home Med) 0.8 unit SC Q2W [facility] Last Admin: 10/14/18 11:49 Dose: 0.8 unit Levothyroxine Sodium (Synthroid) 100 mcg PO 0600 [facility] Last Admin: 10/17/18 15:44 Dose: 100 mcg Magnesium Oxide (Mag-Ox) 400 mg PO BID [facility] Last Admin: 10/17/18 15:46 Dose: Not Given Metoprolol Tartrate (Lopressor) 25 mg PO BRKDIN [facility] Last Admin: 10/17/18 16:01 Dose: Not Given Pantoprazole Sodium (Protonix Ec Tab) 40 mg PO 0600 [facility] Last Admin: 10/17/18 06:59 Dose: Not Given Saliva Substitute (Saliva Substitute) 0 ml PO TID PRN PRN Reason: Dry mouth Last Admin: 10/04/18 13:41 Dose: 1 ml Valproate Sodium (Depakene Oral Soln) 500 mg PO [facility] Last Admin: 10/17/18 21:24 Dose: 500 mg Zolpidem Tartrate (Ambien) 5 mg PO [facility]; Protocol Last Admin: 10/17/18 21:26 Dose: 5 mg - Labs Labs: 10/16/18 08:15 10/16/18 08:15
[2018-10-18 00:16] LABS: BASO # 0.01 K/mm3 (0.0-2.0); BASO % 0.1 % (0.0-3.0); EOS % 0.4 % (1.5-5.0); GRAN # 7.54 (1.4-6.5); GRAN % 77.9 % (50.0-68.0); HEMOGLOBIN 10.2 g/dL (12.0-16.0); LYMPH # 0.7 (1.2-3.4); LYMPH % 7.3 % (22.0-35.0); MEAN CELL VOLUME 85.4 fl (80.0-105.0); MEAN CORPUSCULAR HEMOGLOBIN 27.5 pg (25.0-35.0); MEAN CORPUSCULAR HGB CONC 32.2 g/dl (31.0-37.0); MEAN PLATELET VOLUME 9.4 fl (7.0-11.0); MONO # 1.4 (0.1-0.6); MONO % 14.3 % (1.0-6.0); RBC 3.71 10^6/uL (3.5-6.1); RED CELL DISTRIBUTION WIDTH 16.6 % (11.5-14.5); WHITE BLOOD COUNT 9.7 10^3/uL (4.5-11.0)
[2018-10-18] MEDS: Pantoprazole 40 mg EC Tab PO SCH (06:25)
[2018-10-18] MEDS: Levothyroxine 100 MCG TAB PO SCH (06:25)
[2018-10-18] MEDS: Amoxicillin-Clav 875-125 mg Tab PO SCH ×2 (08:00→17:51)
[2018-10-18] MEDS: Bacitracin Ointment 30 GM TUBE TOP SCH ×2 (09:00→17:00)
[2018-10-18] MEDS: Magnesium Oxide 400 mg Tab UD PO SCH ×2 (09:01→17:00)
--- NOTE | 2018-10-18 09:06 | PCM.PYCHPN ---
Psychiatric Progress Note - Psychiatric Progress Note Patient seen today, length of contact: 25 minutes Problems Identified/Issues Discussed: PROGRESS NOTE 10/18/18 I reviewed recent notes, patient is known to this provider from my follow up on the medical floor prior to her transfer to the psychiatric unit as well as multiple interviews during this psychiatric admission. Patient continues to be bizarre, loud and disorganized with minimal improvement since transfer from [facility], clozaril has been initiated and patient received ECT treatment #1 yesterday. There has been some mild improvement in her organization and impulsivity however full benefits of interventions cannot be determined as of yet. Overall patient remains impulsive, requiring 1:1 and a lot of staff support to redirect her behaviors. She continues to need prns during the day. Her disruptions remain both attention-seeking and psychotic in nature. Diagnostic Results: Schizoaffective Disorder Medication Change: Yes (depakote decreased, clozaril increased) Medical Record Reviewed: Yes Mental Status Examination - Cognitive Function Orientation: Place Memory: Impaired Attention: Poor Concentration: Poor Association: Loose Fund of Knowledge: Poor - Mood Mood: Depressed ( ), Anxious - Affect Affect: Constricted (labile, agitated, histrionic) - Speech Speech: Appropriate - Formal Thought Process Formal Thought Process: Hallucinations, Delusions, Paranoia, Loosening of associations - Suicidal Ideation Suicidal Ideation: No - Homicidal Ideation Homicidal Ideation: No Goal/Treatment Plan - Goal/Treatment Plan Need for Continued Stay: Remain at risks for inpatient hospitalization, Severe depression anxiety, Discharge may exacerbated symptoms, Severe functional impairment Progress Toward Problem(s) and Goals/Treatment Plan: * group, milieu and supportive tx (as tolerated) * Patient is s/p ECT treatment #1 on 10/17/18 * Titrate clozaril as tolerated ~Clozaril 150 mg po AM and 200 mg HS ~will monitor HR and WBC closely * Abiliclaire Maintenna was provided to patient on 09/08/18 will not continue. * Depakene 500 mg po 500 mg HS to help with lability and impulse control as well as sleep on the unit. * xanax 0.25 mg po bid and HS for anxiety * Prozac 40 mg daily for depression and anxiety * Ambien 5 mg po HS prn: insomnia * thorazine prns for agitation * Vitals reviewed and noted below: Selected Entries 10/17/18 10/17/18 10/17/18 14:00 14:15 16:01 Temperature 98.4 F 98.4 F Pulse Rate 94 H 99 H 112 H Respiratory 16 18 Rate Blood Pressure 119/61 113/68 O2 Sat by Pulse 96 96 Oximetry 10/17/18 10/17/18 10/17/18 21:45 22:53 23:48 Temperature 102.9 F H 102.9 F H 98.8 F Pulse Rate Respiratory Rate Blood Pressure O2 Sat by Pulse Oximetry * Please refer to results from patient's physical exam/ROS/labs in progress notes from her recent admission to the medical floor from 09/10/18-09/12/18, as well as ER ROS and physical exam on 09/09/18 * No new weekend lab results thus far Estimated Date of D/C: 10/27/18
--- NOTE | 2018-10-18 09:53 | CP.PCM.PN ---
Subjective - Date & Time of Evaluation Date of Evaluation: 10/18/18 Time of Evaluation: 09:00 - Subjective Subjective: Noted events overnight, had fever 102.9 F with shivering. Was given Tylenol suppository and fever subsided. Cultures have been taken, given a dose of Zyvox PO. Currently sleeping in bed, not in distress. Objective - Vital Signs/Intake and Output Vital Signs (last 24 hours): Temp Pulse Resp BP Pulse Ox 98.8 F 64 18 115/65 96 10/17/18 23:53 10/18/18 09:03 10/17/18 14:15 10/18/18 09:03 10/17/18 14:15 - Medications Medications: Current Medications Alprazolam (Xanax) 0.25 mg PO BID DAT; Protocol Stop: 10/23/18 09:16 Last Admin: 10/18/18 09:01 Dose: 0.25 mg Alprazolam (Xanax) 0.25 mg PO HS DAT; Protocol Last Admin: 10/17/18 21:26 Dose: 0.25 mg Amoxicillin/Clavulanate Potassium (Augmentin 875 Mg-125 Mg Tab) 1 tab PO Q12 DAT; Protocol Last Admin: 10/18/18 08:00 Dose: 1 tab Bacitracin (Bacitracin) 1 gm TOP BID DAT Last Admin: 10/18/18 09:00 Dose: 1 applic Chlorpromazine (Thorazine) 50 mg IM Q6H PRN; Protocol PRN Reason: Agitation Last Admin: 10/17/18 23:40 Dose: 50 mg Chlorpromazine (Thorazine) 50 mg PO Q6H PRN; Protocol PRN Reason: psychosis/agitation Last Admin: 10/11/18 05:28 Dose: 50 mg Clozapine (Clozaril) 200 mg PO HS DAT; Protocol Last Admin: 10/17/18 21:25 Dose: 200 mg Clozapine (Clozaril) 150 mg PO QAM DAT; Protocol Last Admin: 10/18/18 09:00 Dose: 150 mg Fluoxetine HCl (Prozac) 40 mg PO DAILY DAT Last Admin: 10/18/18 09:01 Dose: 40 mg Folic Acid (Folic Acid) 1 mg PO DAILY DAT Last Admin: 10/18/18 09:01 Dose: 1 mg Home Med (Home Med) 0.8 unit SC Q2W [facility] Last Admin: 10/14/18 11:49 Dose: 0.8 unit Levothyroxine Sodium (Synthroid) 100 mcg PO 0600 [facility] Last Admin: 10/18/18 06:25 Dose: 100 mcg Magnesium Oxide (Mag-Ox) 400 mg PO BID [facility] Last Admin: 10/18/18 09:01 Dose: 400 mg Metoprolol Tartrate (Lopressor) 25 mg PO BRKDIN [facility] Last Admin: 10/18/18 09:03 Dose: 25 mg Pantoprazole Sodium (Protonix Ec Tab) 40 mg PO 0600 [facility] Last Admin: 10/18/18 06:25 Dose: 40 mg Saliva Substitute (Saliva Substitute) 0 ml PO TID PRN PRN Reason: Dry mouth Last Admin: 10/04/18 13:41 Dose: 1 ml Valproate Sodium (Depakene Oral Soln) 500 mg PO [facility] Last Admin: 10/17/18 21:24 Dose: 500 mg Zolpidem Tartrate (Ambien) 5 mg PO HS [facility]; Protocol Last Admin: 10/17/18 21:26 Dose: 5 mg - Labs Labs: 10/17/18 23:30 10/16/18 08:15 - Constitutional Appears: Chronically Ill - Head Exam Head Exam: NORMAL INSPECTION - Respiratory Exam Respiratory Exam: Decreased Breath Sounds - Cardiovascular Exam Cardiovascular Exam: +S1, +S2 - GI/Abdominal Exam GI & Abdominal Exam: Soft. absent: Tenderness Assessment and Plan - Assessment and Plan (Free Text) Plan: Assessment new onset systemic inflammatory response syndrome, with fevers, R/O sepsis, source to be determined history asymptomatic bacteriuria with E. faecalis HTN breast cancer S/P radiation therapy psychosis dyslipidemia Plan given a dose of PO Zyvox and will start Augmentin (based on previous urine cx) and will follow up CXR, blood, urine cx, urinalysis, PCT and will give further recommendations based on test results; discussed this with the nurse in the Psych unit
[2018-10-18] MEDS: Valproic Acid 250 mg/5 ml UD Cup PO SCH (21:21)
[2018-10-18 21:51] LABS: URINE BILIRUBIN SMALL (NEGATIVE); URINE BLOOD TRACE-INTACT (NEGATIVE); URINE GLUCOSE (UA) NEGATIVE (NEGATIVE); URINE LEUKOCYTE ESTERASE NEGATIVE Leu/uL (NEGATIVE); URINE PROTEIN 30 mg/dL (<30 mg/dL)
[2018-10-18 21:58] LABS: URINE APPEARANCE SL CLOUDY (CLEAR); URINE COLOR YELLOW (YELLOW)
[2018-10-18 22:02] LABS: URINE BACTERIA MANY (NEG)
[2018-10-19] MEDS: Pantoprazole 40 mg EC Tab PO SCH (05:04)
[2018-10-19] MEDS: Levothyroxine 100 MCG TAB PO SCH (05:04)
[2018-10-19] MEDS: Amoxicillin-Clav 875-125 mg Tab PO SCH ×2 (05:04→17:04)
[2018-10-19 08:45] LABS: BLOOD UREA NITROGEN 17 mg/dL (7-21); CALCIUM 8.6 mg/dL (8.4-10.5); GFR NON-AFRICAN AMERICAN > 60
[2018-10-19] MEDS: Magnesium Oxide 400 mg Tab UD PO SCH ×2 (09:16→17:45)
--- NOTE | 2018-10-19 09:43 | PCM.PYCHPN ---
Psychiatric Progress Note - Psychiatric Progress Note Patient seen today, length of contact: 25 minutes Problems Identified/Issues Discussed: PROGRESS NOTE 10/19/18 I reviewed recent notes, patient is known to this provider from my follow up on the medical floor prior to her transfer to the psychiatric unit as well as multiple interviews during this psychiatric admission. Patient continues to be bizarre, loud and disorganized with minimal improvement since transfer from [facility], clozaril has been initiated and patient received ECT treatment #1 x2 days ago. There has been some mild improvement in her organization and impulsivity however full benefits of interventions cannot be determined as of yet. She had a quiet day yesterday however she started acting out last night and again this morning. Required thorazine IM last night and po this morning. Overall patient remains impulsive, requiring 1:1 and a lot of staff support to redirect her behaviors. She continues to need prns during the day. Her disruptions remain both attention-seeking and psychotic in nature, with symptoms of paranoia and delusions. Diagnostic Results: Schizoaffective Disorder Medication Change: Yes (depakote decreased, clozaril increased) Medical Record Reviewed: Yes Mental Status Examination - Cognitive Function Orientation: Place Memory: Impaired Attention: Poor Concentration: Poor Association: Loose Fund of Knowledge: Poor - Mood Mood: Depressed ( ), Anxious - Affect Affect: Constricted (labile, agitated, histrionic) - Speech Speech: Appropriate - Formal Thought Process Formal Thought Process: Hallucinations, Delusions, Paranoia, Loosening of associations - Suicidal Ideation Suicidal Ideation: No - Homicidal Ideation Homicidal Ideation: No Goal/Treatment Plan - Goal/Treatment Plan Need for Continued Stay: Remain at risks for inpatient hospitalization, Severe depression anxiety, Discharge may exacerbated symptoms, Severe functional impairment Progress Toward Problem(s) and Goals/Treatment Plan: * group, milieu and supportive tx (as tolerated) * Appreciate f/u by Dr. Oneil on 10/18/18 ~Plan Given a dose of PO Zyvox and will start Augmentin (based on previous urine cx) and will follow up CXR, blood, urine cx, urinalysis, PCT and will give further recommendations based on test results; * Patient is s/p ECT treatment #1 on 10/17/18 * Titrate clozaril as tolerated ~Clozaril 150 mg po AM and 200 mg HS ~will monitor HR and WBC closely * Abilify Maintenna was provided to patient on 09/08/18 will not continue. * Depakene 500 mg po 500 mg HS to help with lability and impulse control as well as sleep on the unit. * xanax 0.25 mg po bid and HS for anxiety * Prozac 40 mg daily for depression and anxiety * Ambien 5 mg po HS prn: insomnia * thorazine prns for agitation * Vitals reviewed and noted below: 10/17/18 10/17/18 10/18/18 23:48 23:53 09:03 Temperature 98.8 F 98.8 F Pulse Rate 64 Blood Pressure 115/65 10/17/18 10/17/18 10/17/18 14:00 14:15 16:01 Temperature 98.4 F 98.4 F Pulse Rate 94 H 99 H 112 H Respiratory 16 18 Rate Blood Pressure 119/61 113/68 O2 Sat by Pulse 96 96 Oximetry 10/17/18 10/17/18 10/17/18 21:45 22:53 23:48 Temperature 102.9 F H 102.9 F H 98.8 F Pulse Rate Respiratory Rate Blood Pressure O2 Sat by Pulse Oximetry * Please refer to results from patient's physical exam/ROS/labs in progress notes from her recent admission to the medical floor from 09/10/18-09/12/18, as well as ER ROS and physical exam on 09/09/18 * New weekend lab results summarized below. Chemistry profile within normal limits except for random glucose value of 114H noted below. Results of 10/18/18 Urinalysis also noted below. 10/18/18 10/19/18 10/19/18 21:30 07:30 07:30 Random Glucose 114 H Urine Appearance Sl cloudy Urine pH 7.0 Ur Specific [place] 1.020 Urine Glucose (UA) Negative Urine Ketones 15 H Urine Nitrate Negative Urine Bilirubin Small H Urine Urobilinogen 1.0 H Ur Leukocyte Esterase Negative Urine WBC 5 - 10 Ur Epithelial Cells 6 - 8 Urine Bacteria Many Valproic Acid 41 L Estimated Date of D/C: 10/27/18
[2018-10-19] MEDS: Bacitracin Ointment 30 GM TUBE TOP SCH ×2 (10:49→17:46)
--- NOTE | 2018-10-19 11:33 | RAD ---
HISTORY: temp 102 COMPARISON: Chest x-ray performed 09/25/18 TECHNIQUE: Chest PA and lateral FINDINGS: LUNGS: No focal consolidation. Please note that chest x-ray has limited sensitivity for the detection of pulmonary masses. PLEURA: No significant pleural effusion identified. No definite pneumothorax . CARDIOVASCULAR: Heart size appears within normal limits. OSSEOUS STRUCTURES: Degenerative changes. VISUALIZED UPPER ABDOMEN: Unremarkable. OTHER FINDINGS: None. IMPRESSION: No focal consolidation.
--- NOTE | 2018-10-19 17:11 | CP.PCM.PN ---
Subjective - Date & Time of Evaluation Date of Evaluation: 10/19/18 Time of Evaluation: 10:25 - Subjective Subjective: No more fevers, comfortable. Objective - Vital Signs/Intake and Output Vital Signs (last 24 hours): Temp Pulse Resp BP Pulse Ox 98.8 F 64 18 115/65 96 10/17/18 23:53 10/18/18 09:03 10/17/18 14:15 10/18/18 09:03 10/17/18 14:15 - Medications Medications: Current Medications Alprazolam (Xanax) 0.25 mg PO BID [facility]; Protocol Stop: 10/23/18 09:16 Last Admin: 10/18/18 09:01 Dose: 0.25 mg Alprazolam (Xanax) 0.25 mg PO HS [facility]; Protocol Last Admin: 10/17/18 21:26 Dose: 0.25 mg Amoxicillin/Clavulanate Potassium (Augmentin 875 Mg-125 Mg Tab) 1 tab PO Q12 [facility]; Protocol Last Admin: 10/18/18 08:00 Dose: 1 tab Bacitracin (Bacitracin) 1 gm TOP BID [facility] Last Admin: 10/18/18 09:00 Dose: 1 applic Chlorpromazine (Thorazine) 50 mg IM Q6H PRN; Protocol PRN Reason: Agitation Last Admin: 10/17/18 23:40 Dose: 50 mg Chlorpromazine (Thorazine) 50 mg PO Q6H PRN; Protocol PRN Reason: psychosis/agitation Last Admin: 10/11/18 05:28 Dose: 50 mg Clozapine (Clozaril) 200 mg PO HS [facility]; Protocol Last Admin: 10/17/18 21:25 Dose: 200 mg Clozapine (Clozaril) 150 mg PO QAM [facility]; Protocol Last Admin: 10/18/18 09:00 Dose: 150 mg Fluoxetine HCl (Prozac) 40 mg PO DAILY [facility] Last Admin: 10/18/18 09:01 Dose: 40 mg Folic Acid (Folic Acid) 1 mg PO DAILY [facility] Last Admin: 10/18/18 09:01 Dose: 1 mg Home Med (Home Med) 0.8 unit SC Q2W [facility] Last Admin: 10/14/18 11:49 Dose: 0.8 unit Levothyroxine Sodium (Synthroid) 100 mcg PO 0600 [facility] Last Admin: 10/18/18 06:25 Dose: 100 mcg Magnesium Oxide (Mag-Ox) 400 mg PO BID DAT Last Admin: 10/18/18 09:01 Dose: 400 mg Metoprolol Tartrate (Lopressor) 25 mg PO BRKDIN [facility] Last Admin: 10/18/18 09:03 Dose: 25 mg Pantoprazole Sodium (Protonix Ec Tab) 40 mg PO 0600 [facility] Last Admin: 10/18/18 06:25 Dose: 40 mg Saliva Substitute (Saliva Substitute) 0 ml PO TID PRN PRN Reason: Dry mouth Last Admin: 10/04/18 13:41 Dose: 1 ml Valproate Sodium (Depakene Oral Soln) 500 mg PO HS DAT Last Admin: 10/17/18 21:24 Dose: 500 mg Zolpidem Tartrate (Ambien) 5 mg PO HS DAT; Protocol Last Admin: 10/17/18 21:26 Dose: 5 mg - Labs Labs: 10/17/18 23:30 10/16/18 08:15 - Constitutional Appears: Chronically Ill - Head Exam Head Exam: NORMAL INSPECTION - Neck Exam Neck Exam: absent: Meningismus - Respiratory Exam Respiratory Exam: Decreased Breath Sounds - Cardiovascular Exam Cardiovascular Exam: +S1, +S2 - GI/Abdominal Exam GI & Abdominal Exam: Soft. absent: Tenderness Assessment and Plan - Assessment and Plan (Free Text) Plan: Assessment new onset systemic inflammatory response syndrome, with fevers, R/O sepsis, but so far no source determined history asymptomatic bacteriuria with E. faecalis HTN breast cancer S/P radiation therapy psychosis dyslipidemia Plan given a dose of PO Zyvox and continue Augmentin day 2 (based on previous urine cx); CXR negative for infiltrates, blood, urine cx are negative will continue to monitor clinically
[2018-10-19] MEDS: Valproic Acid 250 mg/5 ml UD Cup PO SCH (22:20)
[2018-10-20] MEDS: Pantoprazole 40 mg EC Tab PO SCH (06:03)
[2018-10-20] MEDS: Amoxicillin-Clav 875-125 mg Tab PO SCH ×2 (06:03→17:31)
[2018-10-20] MEDS: Levothyroxine 100 MCG TAB PO SCH (06:04)
--- NOTE | 2018-10-20 09:14 | PN ---
DATE: 10/17/2018 SUBJECTIVE: The patient is sitting in bed. She is moving around while in the bed. She is status post ECG, seems more calmer and more focused. She has no chest pain. No short of breath. No nausea. No vomiting. PHYSICAL EXAMINATION: VITAL SIGNS: Temperature is 98.4, heart rate is 94, blood pressure is 119/61, respirations 16 and saturation 96%. HEAD AND NECK: Normal. No JVD. No thyromegaly. CHEST: Clear bilaterally. CARDIAC: First sound and second sound normal. ABDOMEN: Soft, obese and nontender. EXTREMITIES: No edema, except right upper extremity. IMPRESSION AND PLAN: 1. Schizoaffective disorder status post electrocardiogram, seems slight improvement. We will continue followup with the psychiatrist. 2. Anemia, chronic, needs further evaluation. She had upper and lower endoscopy in the past. She had a CT abdomen and pelvis on admission, which was negative for any finding except for anemia. 3. Hypothyroidism. Continue levothyroxine. 4. History of urinary tract infections, renal insufficiency, improving. Continue to encourage p.o. fluid intake. The patient otherwise is stable. Continue current therapy. Igor Ca MD
[2018-10-20] MEDS ORDERED: Succinylcholine 200 mg/10 ml Inj IV ONE (10:31)
[2018-10-20] MEDS ORDERED: Propofol 10 mg/ml Inj (20 ML) ONE (10:32)
[2018-10-20] MEDS ORDERED: Lactated Ringer's 1,000 ML IV SCH (11:00)
--- NOTE | 2018-10-20 11:35 | PCM.PYCHPN ---
Psychiatric Progress Note - Psychiatric Progress Note Patient seen today, length of contact: 45min Patient Chief Complaint: "Hello How are you doing?" Problems Identified/Issues Discussed: this copy writer attempted to discuss suicide/ homicide prevention, past psychiatric h/o, current psychiatric symptoms, medical problems, risk/benefits and alternatives of medications, medications compliance, coping strategies, substance abuse h/o, relapse prevention, importance of follow up with psychiatrist and therapist, discharge plan. Medical Problems: pt was dehydrated, but doing better dysphagia is better UTI, patient completed course of antibiotics urine analysis showed leukocyte esterase again on 10/01/2018, Infectious disease wants to observe patient without antibiotics, discussed with 10/10/18 neurology consult was called, pt is not improving for the past 3weeks CT scan at the time of admission 09/14/18 was WNL. Discussed with Dr. Deleon 10/14/2018: MRI of the brain was not able to tolerate, d/c by neurology discussed with 10/17/18, patient is cleared for ECT. EEG was WNL Diagnostic Results: 09/14/18 09:10 09/15/18 08:00 Lab Results 09/15/18 08:00: Sodium 140, Potassium 4.0, Chloride 102, Carbon Dioxide 28, Anion Gap 14, BUN 15, Creatinine 1.2, Est GFR ( Amer) 58, Est GFR (Non-Af Amer) 48, Random Glucose 97, Calcium 9.8 09/14/18 17:40: Urine Color Yellow, Urine Appearance Sl cloudy, Urine pH 6.0, Ur Specific [place] 1.010, Urine Protein Negative, Urine Glucose (UA) Negative, Urine Ketones Negative, Urine Blood Small H, Urine Nitrate Positive H, Urine Bilirubin Negative, Urine Urobilinogen 0.2, Ur Leukocyte Esterase Small H, Urine RBC 5 - 10, Urine WBC 20 - 25, Ur Epithelial Cells 10 - 12, Urine Bacteria Many 09/14/18 09:10: RPR Nonreactive 09/14/18 09:10: TSH 3rd Generation 5.59 H 09/14/18 09:10: Sodium 140, Potassium 4.0, Chloride 104, Carbon Dioxide 21, Anion Gap 18, BUN 15, Creatinine 1.6 H, Est GFR ( Amer) 42, Est GFR (Non- Af Amer) 35, Random Glucose 85, Calcium 10.0, Phosphorus 2.8, Magnesium 1.6 L, Total Bilirubin 0.5, AST 89 H D, ALT 57 H, Alkaline Phosphatase 88, Total P rotein 8.0, Albumin 4.4, Globulin 3.6, Albumin/Globulin Ratio 1.2, Triglycerides 102, Cholesterol 234 H, LDL Cholesterol Direct 155 H, HDL Cholesterol 60 09/14/18 09:10: WBC 4.7 D, RBC 4.39, Hgb 12.4, Hct 37.8, MCV 86.1, MCH 28.2, MCHC 32.8, RDW 16.4 H, Plt Count 360, MPV 9.4, Gran % 50.8, Lymph % (Auto) 34.7, [place] % (Auto) 13.4 H, Eos % (Auto) 0.9 L, Baso % (Auto) 0.2, Gran # 2.39, Lymph # (Auto) 1.6, [place] # (Auto) 0.6, Eos # (Auto) 0.0, Baso # (Auto) 0.01 Microbiology 09/14/18 17:40 Urine Urine Culture - Preliminary Gram Negative [facility] Laboratory Results - last 24 hr 09/19/18 09:55 WBC 4.5 RBC 4.35 Hgb 12.2 Hct 38.3 MCV 88.0 MCH 28.0 MCHC 31.9 RDW 16.6 H Plt Count 318 MPV 9.6 Gran % 54.3 Lymph % (Auto) 30.0 [place] % (Auto) 14.8 H Eos % (Auto) 0.7 L Baso % (Auto) 0.2 Gran # 2.43 Lymph # (Auto) 1.3 [place] # (Auto) 0.7 H Eos # (Auto) 0.0 Baso # (Auto) 0.01 Abnormal Lab Results 09/22/18 09/22/18 07:30 07:30 WBC 3.4 L D RBC 4.34 Hgb 12.2 Hct 37.4 MCV 86.2 MCH 28.1 MCHC 32.6 RDW 16.5 H Plt Count 373 MPV 9.7 Sodium 141 Potassium 5.0 Chloride 107 Carbon Dioxide 25 Anion Gap 14 BUN 18 Creatinine 1.5 H Est GFR ( Amer) 45 Est GFR (Non-Af Amer) 37 Random Glucose 98 Calcium 10.2 Laboratory Results - last 72 hr 09/25/18 14:47 POC Glucose (mg/dL) 94 Vital Signs Temp Pulse Resp BP Pulse Ox 09/27/18 16:00 52 L 108/81 09/27/18 08:40 84 122/67 09/27/18 07:00 97.3 F L 84 18 122/67 09/26/18 08:04 121 H 136/114 H 09/26/18 07:26 98.2 F 54 L 22 136/114 H 09/25/18 09:08 80 124/70 09/24/18 16:00 93 H 112/74 09/24/18 09:17 97/50 L 09/24/18 07:20 97.1 F L 82 16 97/50 L 09/24/18 07:18 97.1 F L 82 20 97/50 L 09/23/18 16:00 86 110/67 09/23/18 06:49 97.7 F 77 20 114/69 09/22/18 16:00 83 103/57 L 09/22/18 12:26 97 H 110/72 09/21/18 10:21 90 116/71 09/21/18 10:15 98.4 F 90 20 116/71 99 09/20/18 15:45 100 H 95/70 L 09/20/18 10:04 93 H 146/96 H 09/20/18 06:48 98.1 F 79 16 98/60 L 09/19/18 16:00 60 116/88 09/19/18 07:28 97.3 F L 91 H 20 115/75 09/17/18 15:00 73 H 128/106 H 09/17/18 09:30 68 116/62 09/17/18 07:25 97.1 F L 80 18 92/58 L 09/16/18 16:00 102 H 120/81 09/16/18 09:47 104 H 124/99 H 09/16/18 07:17 98.0 F 87 18 98/59 L 09/15/18 09:07 103 H 106/70 09/15/18 07:00 97.8 F 105 H 19 86/60 L 09/14/18 16:28 90 139/118 H 09/14/18 07:00 97.9 F 60 17 115/72 09/13/18 08:30 114 H 20 129/100 H 09/13/18 07:00 98.5 F 55 L 22 169/114 H 09/13/18 06:50 55 L 169/114 H 09/12/18 16:11 97.2 F L 80 20 114/64 09/12/18 15:39 20 Abnormal Lab Results 09/29/18 19:14 WBC 4.8 RBC 4.34 Hgb 12.3 Hct 38.4 MCV 88.5 MCH 28.3 MCHC 32.0 RDW 16.7 H Plt Count 261 MPV 10.7 Gran % 39.9 L Lymph % (Auto) 42.0 H [place] % (Auto) 15.8 H Eos % (Auto) 1.9 Baso % (Auto) 0.4 Gran # 1.90 Lymph # (Auto) 2.0 [place] # (Auto) 0.8 H Eos # (Auto) 0.1 Baso # (Auto) 0.02 Abnormal Lab Results 10/01/18 10/01/18 10/01/18 07:50 07:50 07:50 WBC 3.2 L D RBC 4.39 Hgb 12.2 Hct 38.8 MCV 88.4 MCH 27.8 MCHC 31.4 RDW 16.7 H Plt Count 280 MPV 9.9 Sodium 141 Potassium 4.2 Chloride 108 H Carbon Dioxide 28 Anion Gap 10 BUN 16 Creatinine 1.1 Est GFR ( Amer) > 60 Est GFR (Non-Af Amer) 53 Random Glucose 98 Calcium 9.5 Thyroxine (T4) 8.4 TSH 3rd Generation 1.86 Cortisol AM Sample 10/01/18 07:50 WBC RBC Hgb Hct MCV MCH MCHC RDW Plt Count MPV Sodium Potassium Chloride Carbon Dioxide Anion Gap BUN Creatinine Est GFR ( Amer) Est GFR (Non-Af Amer) Random Glucose Calcium Thyroxine (T4) TSH 3rd Generation Cortisol AM Sample 19.5 Temp Pulse Resp BP Pulse Ox 97.9 F 113 H 20 105/72 99 10/03/18 07:17 10/03/18 09:46 10/03/18 07:17 10/03/18 09:46 09/21/18 10:15 Microbiology 10/06/18 12:17 Urine Culture - Final Urine Enterococcus Faecalis Temp Pulse Resp BP Pulse Ox 97.9 F 102 H 22 143/120 H 99 10/09/18 07:36 10/09/18 08:25 10/09/18 07:36 10/09/18 08:25 09/21/18 10:15 Laboratory Results - last 24 hr 10/09/18 09:30 WBC 5.4 D RBC 4.09 Hgb 11.3 L Hct 36.0 MCV 88.0 MCH 27.6 MCHC 31.4 RDW 16.8 H Plt Count 337 MPV 9.8 Gran % 63.5 Lymph % (Auto) 22.0 [place] % (Auto) 12.4 H Eos % (Auto) 1.9 Baso % (Auto) 0.2 Gran # 3.43 Lymph # (Auto) 1.2 [place] # (Auto) 0.7 H Eos # (Auto) 0.1 Baso # (Auto) 0.01 No signs of a granulocytosis Temp Pulse Resp BP Pulse Ox 97.9 F 63 20 128/91 H 99 10/10/18 07:31 10/10/18 09:43 10/10/18 07:31 10/10/18 09:43 09/21/18 10:15 Temp Pulse Resp BP Pulse Ox 97.9 F 88 16 73/49 L 99 10/14/18 06:59 10/14/18 10:09 10/14/18 06:59 10/14/18 10:09 09/21/18 10:15 Laboratory Results - last 24 hr 10/16/18 10/16/18 08:15 08:15 WBC 3.6 L D RBC 4.19 Hgb 11.7 L Hct 36.7 MCV 87.6 MCH 27.9 MCHC 31.9 RDW 16.9 H Plt Count 311 MPV 9.5 Gran % 54.0 Lymph % (Auto) 27.4 [place] % (Auto) 13.6 H Eos % (Auto) 4.7 Baso % (Auto) 0.3 Gran # 1.95 Lymph # (Auto) 1.0 L [place] # (Auto) 0.5 Eos # (Auto) 0.2 Baso # (Auto) 0.01 Sodium 143 Potassium 3.4 L Chloride 105 Carbon Dioxide 31 Anion Gap 11 BUN 17 Creatinine 0.9 Est GFR ( Amer) > 60 Est GFR (Non-Af Amer) > 60 Random Glucose 129 H Calcium 8.9 Phosphorus 3.3 Magnesium 2.5 H Total Bilirubin 0.3 AST 52 H ALT 46 Alkaline Phosphatase 87 Total Protein 7.9 Albumin 3.7 Globulin 4.2 Albumin/Globulin Ratio 0.9 L Triglycerides 129 Cholesterol 184 LDL Cholesterol Direct 114 HDL Cholesterol 41 Temp Pulse Resp BP Pulse Ox 98.0 F 73 20 113/90 99 10/16/18 06:56 10/16/18 06:56 10/16/18 06:56 10/16/18 06:56 09/21/18 10:15 Temp Pulse Resp BP Pulse Ox 98.4 F 99 H 18 113/68 96 10/17/18 14:15 10/17/18 14:15 10/17/18 14:15 10/17/18 14:15 10/17/18 14:15 Laboratory Results - last 24 hr 10/17/18 09:37 Urine HCG, Qual Negative Temp Pulse Resp BP Pulse Ox 98.2 F 100 H 16 135/76 100 10/20/18 11:21 10/20/18 11:21 10/20/18 11:21 10/20/18 11:21 10/20/18 11:21 Abnormal Lab Results 10/19/18 08:00 Procalcitonin 0.09 L DSM 5 Symptoms Update: Patient is a 48-year-old Indian female with a psychiatric history of Schizoaffective disorder, multiple prior psychiatric admissions both in [place] and the [place]~ most recently hospitalized at [facility] x6 months ago, who was transferred from the medical floor after being treated from 09/10/18-09/12/18 for dysphagia. Pt was presented with depression, disorganization, paranoia, moravian preoccupation as well as bizarre behavior. On the medical floor patient required 1:1 because she was caught drinking her urine out of the toilet. Patient was trying to punish herself because she didn't deserve to live. Patient attends outpatient psychiatric treatment of [facility]. Her most recent follow up was on September 08, 2018. Patient has been compliant with Abilify 10 mg daily, Prozac 10 mg daily Seroquel 100 mg BID as well as Abilify Maintenna last injected September 08, 2018. pt was seen and examined today at the morning time at the treatment team bakari galeas, patient presented with some improvements of her presentation, patient was able to speak Micronesian, patient presented much calmer to compare with the last week, patient was willing to continue on ECT treatment. received ECT treatment #1 10/17/18, tolerated that well, today patient scheduled for another ECT treatment. Patient was able to sign treatment plan update, patient presented much alert and less disorganized ,however full benefits of interventions cannot be determined as of yet. Over the weekend patient had less periods of agitation but still required IM at Saturday and Saturday night. Today patient was observed trying to drink from the toilet bowl, was redirected immediately. Her disruptions remain both attention-seeking and psychotic in nature, with symptoms of paranoia and d elusions. Patient had episode of fever last Saturday by the evening time, antibiotics was started by infectious disease. Discussed with today 10/20/2018. as per staff patient was doing a little better, patient was scheduled for MRI of the brain, but became agitated, this copy writer needed to medicate patient with haloperidol plus Ativan plus Benadryl IM. Discussed with 10/17/2018, EEG within normal limits, no need for patient to have MRI, patient was cleared for ECT. pt was seen by steam turbine assembler who cleared pt for ECT pt was seen by PMD , pt was cleared for ECT GI team was called for f/u, diet was advanced discussed with ID 10/10/18, wants to observe patient with no antibiotics. Hem/onc was involved because patient has history of breast cancer. diet was changed, pt eats little better. 10/15/[address], pt and her (next of kin) both agreed for ECT procedure, see 10/15/18 note for more detailed information. 10/17/18 ECT BL #1 4x treatments needed to take place at that day, pt had 15sek of seizure given at 500%or 6xST 30Hz, 8s, 115.2mC. 10/20/18 pt was seen in OR, pt signed consent for treatment, pt presented more alert and has basic understanding of ECT treatment, had a capacity to sign consent. ECT BL #2 Over the weekend Depakote was decreased, no Ativan as needed was given, this copy writer was continuing to find right dose or of current for the patient. started with charge 96mC energy 17.6, stat Imped 660 ohms, dyn imped 236ohms, pulse width 0.3msec, frequency 25hz, duration 8.0sec, current 800mA, pt had only few seconds of seizure, which was considered 38% adequate by machine analysis, second tx was given at charge 128mC energy 21.5, stat Imped 640 ohms, dyn imped 212ohms, pulse width 0.5msec, frequency 20hz, duration 8.0sec, current 800mA, pt had only 7 seconds of seizure, which was considered 58% adequate by machine analysis. third treatment given at: charge 192mC energy 31.0, stat Imped 580 ohms, dyn imped 203ohms, pulse width 0.5msec, frequency 30hz, duration 8.0sec, current 800mA, pt had 17sec of motor seizures, seizures were considered 66% adequate by machine analysis. all treatments were spread with the interval of 25-30sec. pt woke up, no complaints, tolerated treatment well, will be transferred back to psych unit. discussed with today, as per PMD "she presented little better over the weekend". No drooling observed/. clozaril was started 10/01/18, pt is currently on 350mg po daily. Diagnostic Results: Schizoaffective Disorder Medication Change: Yes (depakote decreased, clozaril increased) Medical Record Reviewed: Yes Consults ordered or reviewed: patient was seen by medical team as well as nephrology team see notes for more detailed information pt was seen by Hem/Onc pt was seen by ID team Neurology involved, discussed 10/14/2018 GI involved cardiology involved Mental Status Examination - Cognitive Function Orientation: Place Memory: Impaired Attention: Poor Concentration: Poor Association: Loose Fund of Knowledge: Poor - Mood Mood: Depressed ( ), Anxious - Affect Affect: Constricted (calmer today) - Speech Speech: Appropriate - Formal Thought Process Formal Thought Process: Hallucinations, Delusions, Paranoia, Loosening of associations - Suicidal Ideation Suicidal Ideation: No - Homicidal Ideation Homicidal Ideation: No Goal/Treatment Plan - Goal/Treatment Plan Need for Continued Stay: Remain at risks for inpatient hospitalization, Severe depression anxiety, Discharge may exacerbated symptoms, Severe functional impairment Progress Toward Problem(s) and Goals/Treatment Plan: group, milieu and supportive tx (as tolerated) Clozaril 150mg po daily and 200mg po hs, will titrate accordingly Prozac 40 mg daily for depression and anxiety xanax 0.25mg po bid only PRN and hs for restlessness seroquel discontinued 10/09/2018 Twila Francisryanna was provided to patient on 09/08/18, no plan to resume Thorazine 50mg po and IM prn ECT #1 10/17/18, pt had about 15 sec of seizures ECT #2 10/20/18, pt had 17 seconds of seizures ECT #3 scheduled for 10/21/18 neurology involved MRI, pt was not able to tolerate EEG, WNL ID and oncology involved GI follow up hem onc involved steam turbine assembler involved consultation for discharge plan and social issues Family involvement, pt wanted her to participate in her care family meeting took place 09/19/[address] 10/15/18 CBC with afzytuntvrto58/6/2018 no signs of a granulocytosis CBC with differential 10/16/18 no signs of agranulocytosis Patient is registered clozaril REMS Follow up on labs Will monitor closely Pt was educated about risk/benefits and alternatives of medications, coping strategies (safety plan, suicide prevention), relapse prevention, importance of follow up with psychiatrist and therapist, stay away from drugs/alcohol/smoking Estimated Date of D/C: 10/27/18
[2018-10-20] MEDS: Magnesium Oxide 400 mg Tab UD PO SCH ×2 (12:09→17:29)
[2018-10-20] MEDS: Bacitracin Ointment 30 GM TUBE TOP SCH ×2 (12:09→17:31)
--- NOTE | 2018-10-20 16:33 | PCM.BM ---
<Evie Rodriguez Y - Last Filed: 10/20/18 16:32> Treatment Plan Problems - Problems identified on initial assessmt DELUSIONS Date Initiated: 09/12/18 (NEEDS TO PUNISH HERSELF ) Time Initiated: 16:27 Assessment reference: HP, NA, Other Status: Active THOUGHT PROCESS ALTERATION Date Initiated: 09/12/18 (COPROPHAGIA) Time Initiated: 16:28 Assessment reference: HP, NA Status: Active ALTERATION IN EMOTIONAL STATUS Date Initiated: 09/12/18 Time Initiated: 16:29 Assessment reference: HP, Other Status: Active Treatment assets and liabiliti Patient Assests: adapts well, good support system, strong justin Patient Liabilities: medical problems, other (CHRONOC CHARACTER OF THE PROBLEM ) - Milieu Protocol Maintain good personal hygiene: daily Encourage regular showers, daily Remind patient to perform daily oral care, daily Assist patient to perform ADL's Maintain personal safety: daily Educate patient to report safety concerns to staff, daily Monitor environment for contraband/sharps Medication safety: Monitor for expected outcome, potential side effects: daily, Assess barriers to learning: daily, Assess readiness for medication education: daily Milieu Narrative: group, milieu and supportive tx (as tolerated) Clozaril 150mg po daily and 200mg po hs, will titrate accordingly Prozac 40 mg daily for depression and anxiety xanax 0.25mg po bid only PRN and hs for restlessness seroquel discontinued 10/09/2018 Twila Maintenna was provided to patient on 09/08/18, no plan to resume Thorazine 50mg po and IM prn ECT #1 10/17/18, pt had about 15 sec of seizures ECT #2 10/20/18, pt had 17 seconds of seizures ECT #3 scheduled for 10/21/18 neurology involved MRI, pt was not able to tolerate EEG, WNL ID and oncology involved GI follow up hem onc involved brass cleaner involved consultation for discharge plan and social issues Family involvement, pt wanted her to participate in her care family meeting took place 09/19/[address] 10/15/18 CBC with [id number]/6/2018 no signs of a granulocytosis CBC with differential 10/16/18 no signs of agranulocytosis Patient is registered clozaril REMS Follow up on labs Will monitor closely Pt was educated about risk/benefits and alternatives of medications, coping strategies (safety plan, suicide prevention), relapse prevention, importance of follow up with psychiatrist and therapist, stay away from drugs/alcohol/smoking Family Contact - Outside Agency [facility] Care involvment: Information-sharing Agency contact name: [facility] Agency contact number: [phone] [facility] Care involvment: Information-sharing Agency contact name: [facility] Agency contact number: [phone] Discharge/Continuing Care - Education Needs Education Needs: Patient Medication, Patient Diagnosis/Disease Process, Patient Placement options, Patient Community resources, Patient Activities of Daily Living, Patient Health Practices/Safety, Patient Personal Hygiene/Grooming, Patient Aftercare Safety Plan - Discharge Discharge Criteria: Tolerates medication w/o severe side effects, Free of Suicidal thoughts, Normal sleep pattern, Other Discharge to:: With Family - Treatment Team Participation Patient/Family/SO Statement: group, milieu and supportive tx (as tolerated) Clozaril 150mg po daily and 200mg po hs, will titrate accordingly Prozac 40 mg daily for depression and anxiety xanax 0.25mg po bid only PRN and hs for restlessness seroquel discontinued 10/09/2018 Abilify Maintenna was provided to patient on 09/08/18, no plan to resume Thorazine 50mg po and IM prn ECT #1 10/17/18, pt had about 15 sec of seizures ECT #2 10/20/18, pt had 17 seconds of seizures ECT #3 scheduled for 10/21/18 neurology involved MRI, pt was not able to tolerate EEG, WNL ID and oncology involved GI follow up hem onc involved brass cleaner involved consultation for discharge plan and social issues Family involvement, pt wanted her to participate in her care family meeting took place 09/19/[address] 10/15/18 CBC with [id number]/6/2018 no signs of a granulocytosis CBC with differential 10/16/18 no signs of agranulocytosis Patient is registered clozaril REMS Follow up on labs Will monitor closely Pt was educated about risk/benefits and alternatives of medications, coping strategies (safety plan, suicide prevention), relapse prevention, importance of follow up with psychiatrist and therapist, stay away from drugs/alcohol/smoking Treatment Plan Review - Problem DELUSIONS Time Initiated: 16:27 Progress toward outcomes: unchanged THOUGHT PROCESS ALTERATION Time Initiated: 16:28 Progress toward outcomes: unchanged ALTERATION IN EMOTIONAL STATUS Time Initiated: 16:29 Progress toward outcomes: unchanged <Carolyn Ross - Last Filed: 10/21/18 13:08> - Diagnosis (1) Schizoaffective disorder Status: Acute Interventions: 10/21/18 13:02 ECT started pt tolerating it well pt is on clozaril family involved
--- NOTE | 2018-10-20 20:27 | PN ---
DATE: 10/13/2018 SEX OF THE PATIENT: Female. AGE OF THE PATIENT: 48. TYPE OF DICTATION: Progress note. REASON FOR CONSULTATION: Followup, preop evaluation, risk stratification for ECT. The patient is in psych floor. SUBJECTIVE: The patient denies any chest pain, shortness of breath, or any palpitation. Going for ECT today possibly. PHYSICAL EXAMINATION: As follows: VITAL SIGNS: Temperature afebrile, heart rate 100, blood pressure 135/76. HEENT: PERRLA. Extraocular muscles are intact. NECK: Supple. No carotid bruits. No thyromegaly. CHEST: Clear to auscultation. HEART: S1 and S2, regular. ABDOMEN: Soft. EXTREMITIES: Clubbing and cyanosis negative. LABORATORY DATA: Blood workup as follows: WBC 9.7, hemoglobin 10.2, hematocrit 31.7, and platelet count 267. Chemistry shows sodium 140, potassium 3.9, chloride 106, bicarb 27, anion gap of 12, BUN 17, and creatinine 0.9. IMPRESSION: A 48-year-old female with past medical history significant for schizoaffective disorder; history of breast cancer, status post mastectomy, wedge resection and later on reconstruction surgery; hypothyroidism; hypertension. Admitted with schizoaffective disorder, requiring electroconvulsive therapy preoperative evaluation required. Cardiology consult was called. The patient denies any chest pain, shortness of breath, or any palpitation. Given the psychiatric disorder and no significant history of coronary artery disease, the patient is cleared to go with [id number] risk for electroconvulsive therapy. We will follow with you. Continue metoprolol. Repeat electrolytes . We will follow with you. We will repeat magnesium level and phosphate tomorrow as well as CBC. Thank you Dr. Carolyn Ross for providing us the opportunity in taking care of the patient, Yomaira Will. Jasmine Lloyd MD
[2018-10-21] MEDS: Amoxicillin-Clav 875-125 mg Tab PO SCH ×2 (06:35→17:51)
[2018-10-21] MEDS: Levothyroxine 100 MCG TAB PO SCH (06:36)
[2018-10-21] MEDS: Pantoprazole 40 mg EC Tab PO SCH (06:36)
[2018-10-21 07:40] LABS: BASO # 0.02 K/mm3 (0.0-2.0); BASO % 0.6 % (0.0-3.0); EOS # 0.2 (0.0-0.7); EOS % 4.2 % (1.5-5.0); GRAN # 1.45 (1.4-6.5); GRAN % 40.4 % (50.0-68.0); LYMPH # 1.3 (1.2-3.4); MEAN CELL VOLUME 86.8 fl (80.0-105.0); MEAN CORPUSCULAR HEMOGLOBIN 27.5 pg (25.0-35.0); MEAN CORPUSCULAR HGB CONC 31.6 g/dl (31.0-37.0); MEAN PLATELET VOLUME 8.8 fl (7.0-11.0); MONO # 0.6 (0.1-0.6); MONO % 17.8 % (1.0-6.0); RBC 3.64 10^6/uL (3.5-6.1); RED CELL DISTRIBUTION WIDTH 17.6 % (11.5-14.5); WHITE BLOOD COUNT 3.6 10^3/uL (4.5-11.0)
[2018-10-21 08:01] LABS: ALB/GLOB RATIO 0.8 (1.1-1.8); ALBUMIN 2.7 g/dL (3.0-4.8); ALT/SGPT 44 U/L (7-56); AST/SGOT 33 U/L (14-36); BLOOD UREA NITROGEN 14 mg/dL (7-21); CALCIUM 8.3 mg/dL (8.4-10.5); GFR NON-AFRICAN AMERICAN > 60
[2018-10-21] MEDS ORDERED: Propofol 10 mg/ml Inj (20 ML) ONE (10:21)
[2018-10-21] MEDS ORDERED: Succinylcholine 200 mg/10 ml Inj IV ONE (10:22)
--- NOTE | 2018-10-21 10:47 | PN ---
DATE: 10/20/2018 SUBJECTIVE: The patient is seen in same day surgery area after ECT. The patient seems more aware of her problems, more oriented, and worried about her mental status now. She said that she is worried about returning back to eating her feces or eating her legs and the previous and the initial reason for coming to the hospital. She has no any physical complaint, no respiratory distress. Please be advised this note for 10/20/2018. PHYSICAL EXAMINATION: VITAL SIGNS: Temperature 98.2, heart rate 100, blood pressure 135/76, respirations 16, and saturating 100% on room air. HEAD AND NECK: Normal. No JVD and no thyromegaly. CHEST: Clear bilateral. CARDIAC: First sound and second sound normal. ABDOMEN: Soft and nontender. EXTREMITIES: No edema. NEUROLOGIC: Normal. LABORATORY DATA: Labs were ordered in the morning. IMPRESSION AND PLAN: 1. Severe schizoaffective disorders associated with depression. The patient seems responding to electroconvulsive therapy. I discussed with Dr. Leon about the electroconvulsive therapy. She may need to come twice a week as outpatient if needed when appropriately evaluated for discharge, but she may follow up as outpatient. That process may continue for a while for her health and for her mental conditions. The patient tried to maximize her antipsychotic therapy with insignificant clinical response. So, continue current therapy. She is getting Clozaril 200 mg at bedtime and 150 in the morning. She is still getting Ambien. She is getting Prozac 40 mg daily. She is getting Chlorazine 50 mg intramuscularly every 6 hours and p.o. every 6 hours p.r.n. She is also getting Xanax 0.25 mg at bedtime and b.i.d. 2. Esophageal narrowing, dysphagia, stable at this time. 3. History of acute renal insufficiency. She responded well to fluids. Encourage p.o. intake. 4. Hypothyroidism, stable thyroid-stimulating hormone. We will repeat it. 5. History of breast carcinoma with right arm lymphedema. Continue current therapy. Follow up clinically. Igor Ca MD
[2018-10-21] MEDS ORDERED: Sodium Chloride 0.9% 1,000 ML IV SCH (11:00)
[2018-10-21] MEDS: Bacitracin Ointment 30 GM TUBE TOP SCH ×2 (12:50→19:07)
[2018-10-21] MEDS: Magnesium Oxide 400 mg Tab UD PO SCH ×2 (12:51→17:50)
--- NOTE | 2018-10-21 13:25 | CP.PCM.PN ---
Subjective - Date & Time of Evaluation Date of Evaluation: 10/20/18 Time of Evaluation: 09:00 - Subjective Subjective: Comfortable, no fevers. Objective - Vital Signs/Intake and Output Vital Signs (last 24 hours): Temp Pulse Resp BP Pulse Ox 98.8 F 70 18 120/70 96 10/17/18 23:53 10/19/18 09:18 10/17/18 14:15 10/19/18 09:18 10/17/18 14:15 - Medications Medications: Current Medications Alprazolam (Xanax) 0.25 mg PO BID [facility]; Protocol Stop: 10/23/18 09:16 Last Admin: 10/19/18 09:25 Dose: 0.25 mg Alprazolam (Xanax) 0.25 mg PO HS [facility]; Protocol Last Admin: 10/18/18 21:21 Dose: 0.25 mg Amoxicillin/Clavulanate Potassium (Augmentin 875 Mg-125 Mg Tab) 1 tab PO Q12 DAT; Protocol Last Admin: 10/19/18 05:04 Dose: 1 tab Bacitracin (Bacitracin) 1 gm TOP BID [facility] Last Admin: 10/19/18 10:49 Dose: 1 applic Chlorpromazine (Thorazine) 50 mg IM Q6H PRN; Protocol PRN Reason: Agitation Last Admin: 10/17/18 23:40 Dose: 50 mg Chlorpromazine (Thorazine) 50 mg PO Q6H PRN; Protocol PRN Reason: psychosis/agitation Last Admin: 10/19/18 05:16 Dose: 50 mg Clozapine (Clozaril) 200 mg PO HS [facility]; Protocol Last Admin: 10/18/18 21:22 Dose: 200 mg Clozapine (Clozaril) 150 mg PO QAM [facility]; Protocol Last Admin: 10/19/18 09:15 Dose: 150 mg Fluoxetine HCl (Prozac) 40 mg PO DAILY [facility] Last Admin: 10/19/18 09:16 Dose: 40 mg Folic Acid (Folic Acid) 1 mg PO DAILY [facility] Last Admin: 10/19/18 09:17 Dose: 1 mg Home Med (Home Med) 0.8 unit SC Q2W DAT Last Admin: 10/14/18 11:49 Dose: 0.8 unit Levothyroxine Sodium (Synthroid) 100 mcg PO 0600 DAT Last Admin: 10/19/18 05:04 Dose: 100 mcg Magnesium Oxide (Mag-Ox) 400 mg PO BID DAT Last Admin: 10/19/18 09:16 Dose: 400 mg Metoprolol Tartrate (Lopressor) 25 mg PO BRKDIN DAT Last Admin: 10/19/18 09:18 Dose: 25 mg Pantoprazole Sodium (Protonix Ec Tab) 40 mg PO 0600 DAT Last Admin: 10/19/18 05:04 Dose: 40 mg Saliva Substitute (Saliva Substitute) 0 ml PO TID PRN PRN Reason: Dry mouth Last Admin: 10/04/18 13:41 Dose: 1 ml Valproate Sodium (Depakene Oral Soln) 500 mg PO HS DAT Last Admin: 10/18/18 21:21 Dose: 500 mg Zolpidem Tartrate (Ambien) 5 mg PO HS DAT; Protocol Last Admin: 10/18/18 21:21 Dose: 5 mg - Labs Labs: 10/17/18 23:30 10/19/18 07:30 - Head Exam Head Exam: NORMAL INSPECTION Assessment and Plan - Assessment and Plan (Free Text) Plan: Assessment new onset systemic inflammatory response syndrome, with fevers, R/O sepsis, but so far no source determined history asymptomatic bacteriuria with E. faecalis HTN breast cancer S/P radiation therapy psychosis dyslipidemia Plan given a dose of PO Zyvox and continue Augmentin day 4 for 5-7 days (based on previous urine cx); CXR negative for infiltrates, blood, urine cx are negative will continue to monitor clinically discussed with Dr. Leon
--- NOTE | 2018-10-21 14:02 | PCM.PYCHPN ---
Psychiatric Progress Note - Psychiatric Progress Note Patient seen today, length of contact: 45min Patient Chief Complaint: "How many treatment do I need to take?" Problems Identified/Issues Discussed: this medical writer attempted to discuss suicide/ homicide prevention, past psychiatric h/o, current psychiatric symptoms, medical problems, risk/benefits and alternatives of medications, medications compliance, coping strategies, substance abuse h/o, relapse prevention, importance of follow up with psychiatrist and therapist, discharge plan. Medical Problems: pt was dehydrated, but doing better dysphagia is better UTI, patient completed course of antibiotics urine analysis showed leukocyte esterase again on 10/01/2018, Infectious disease wants to observe patient without antibiotics, discussed with 10/10/18 neurology consult was called, pt is not improving for the past 3weeks CT scan at the time of admission 09/14/18 was WNL. Discussed with Dr. Deleon 10/14/2018: MRI of the brain was not able to tolerate, d/c by neurology discussed with 10/17/18, patient is cleared for ECT. EEG was WNL Diagnostic Results: 09/14/18 09:10 09/15/18 08:00 Lab Results 09/15/18 08:00: Sodium 140, Potassium 4.0, Chloride 102, Carbon Dioxide 28, Anion Gap 14, BUN 15, Creatinine 1.2, Est GFR ( Amer) 58, Est GFR (Non-Af Amer) 48, Random Glucose 97, Calcium 9.8 09/14/18 17:40: Urine Color Yellow, Urine Appearance Sl cloudy, Urine pH 6.0, Ur Specific Gile 1.010, Urine Protein Negative, Urine Glucose (UA) Negative, Urine Ketones Negative, Urine Blood Small H, Urine Nitrate Positive H, Urine Bilirubin Negative, Urine Urobilinogen 0.2, Ur Leukocyte Esterase Small H, Urine RBC 5 - 10, Urine WBC 20 - 25, Ur Epithelial Cells 10 - 12, Urine Bacteria Many 09/14/18 09:10: RPR Nonreactive 09/14/18 09:10: TSH 3rd Generation 5.59 H 09/14/18 09:10: Sodium 140, Potassium 4.0, Chloride 104, Carbon Dioxide 21, Anion Gap 18, BUN 15, Creatinine 1.6 H, Est GFR ( Amer) 42, Est GFR (Non- Af Amer) 35, Random Glucose 85, Calcium 10.0, Phosphorus 2.8, Magnesium 1.6 L, Total Bilirubin 0.5, AST 89 H D, ALT 57 H, Alkaline Phosphatase 88, Total Protein 8.0, Albumin 4.4, Globulin 3.6, Albumin/Globulin Ratio 1.2, Triglycerides 102, Cholesterol 234 H, LDL Cholesterol Direct 155 H, HDL Cholesterol 60 09/14/18 09:10: WBC 4.7 D, RBC 4.39, Hgb 12.4, Hct 37.8, MCV 86.1, MCH 28.2, MCHC 32.8, RDW 16.4 H, Plt Count 360, MPV 9.4, Gran % 50.8, Lymph % (Auto) 34.7, Baxter % (Auto) 13.4 H, Eos % (Auto) 0.9 L, Baso % (Auto) 0.2, Gran # 2.39, Lymph # (Auto) 1.6, Baxter # (Auto) 0.6, Eos # (Auto) 0.0, Baso # (Auto) 0.01 Microbiology 09/14/18 17:40 Urine Urine Culture - Preliminary Gram Negative [facility] Laboratory Results - last 24 hr 09/19/18 09:55 WBC 4.5 RBC 4.35 Hgb 12.2 Hct 38.3 MCV 88.0 MCH 28.0 MCHC 31.9 RDW 16.6 H Plt Count 318 MPV 9.6 Gran % 54.3 Lymph % (Auto) 30.0 Baxter % (Auto) 14.8 H Eos % (Auto) 0.7 L Baso % (Auto) 0.2 Gran # 2.43 Lymph # (Auto) 1.3 Baxter # (Auto) 0.7 H Eos # (Auto) 0.0 Baso # (Auto) 0.01 Abnormal Lab Results 09/22/18 09/22/18 07:30 07:30 WBC 3.4 L D RBC 4.34 Hgb 12.2 Hct 37.4 MCV 86.2 MCH 28.1 MCHC 32.6 RDW 16.5 H Plt Count 373 MPV 9.7 Sodium 141 Potassium 5.0 Chloride 107 Carbon Dioxide 25 Anion Gap 14 BUN 18 Creatinine 1.5 H Est GFR ( Amer) 45 Est GFR (Non-Af Amer) 37 Random Glucose 98 Calcium 10.2 Laboratory Results - last 72 hr 09/25/18 14:47 POC Glucose (mg/dL) 94 Vital Signs Temp Pulse Resp BP Pulse Ox 09/27/18 16:00 52 L 108/81 09/27/18 08:40 84 122/67 09/27/18 07:00 97.3 F L 84 18 122/67 09/26/18 08:04 121 H 136/114 H 09/26/18 07:26 98.2 F 54 L 22 136/114 H 09/25/18 09:08 80 124/70 09/24/18 16:00 93 H 112/74 09/24/18 09:17 97/50 L 09/24/18 07:20 97.1 F L 82 16 97/50 L 09/24/18 07:18 97.1 F L 82 20 97/50 L 09/23/18 16:00 86 110/67 09/23/18 06:49 97.7 F 77 20 114/69 09/22/18 16:00 83 103/57 L 09/22/18 12:26 97 H 110/72 09/21/18 10:21 90 116/71 09/21/18 10:15 98.4 F 90 20 116/71 99 09/20/18 15:45 100 H 95/70 L 09/20/18 10:04 93 H 146/96 H 09/20/18 06:48 98.1 F 79 16 98/60 L 09/19/18 16:00 60 116/88 09/19/18 07:28 97.3 F L 91 H 20 115/75 09/17/18 15:00 73 H 128/106 H 09/17/18 09:30 68 116/62 09/17/18 07:25 97.1 F L 80 18 92/58 L 09/16/18 16:00 102 H 120/81 09/16/18 09:47 104 H 124/99 H 09/16/18 07:17 98.0 F 87 18 98/59 L 09/15/18 09:07 103 H 106/70 09/15/18 07:00 97.8 F 105 H 19 86/60 L 09/14/18 16:28 90 139/118 H 09/14/18 07:00 97.9 F 60 17 115/72 09/13/18 08:30 114 H 20 129/100 H 09/13/18 07:00 98.5 F 55 L 22 169/114 H 09/13/18 06:50 55 L 169/114 H 09/12/18 16:11 97.2 F L 80 20 114/64 09/12/18 15:39 20 Abnormal Lab Results 09/29/18 19:14 WBC 4.8 RBC 4.34 Hgb 12.3 Hct 38.4 MCV 88.5 MCH 28.3 MCHC 32.0 RDW 16.7 H Plt Count 261 MPV 10.7 Gran % 39.9 L Lymph % (Auto) 42.0 H Baxter % (Auto) 15.8 H Eos % (Auto) 1.9 Baso % (Auto) 0.4 Gran # 1.90 Lymph # (Auto) 2.0 Baxter # (Auto) 0.8 H Eos # (Auto) 0.1 Baso # (Auto) 0.02 Abnormal Lab Results 10/01/18 10/01/18 10/01/18 07:50 07:50 07:50 WBC 3.2 L D RBC 4.39 Hgb 12.2 Hct 38.8 MCV 88.4 MCH 27.8 MCHC 31.4 RDW 16.7 H Plt Count 280 MPV 9.9 Sodium 141 Potassium 4.2 Chloride 108 H Carbon Dioxide 28 Anion Gap 10 BUN 16 Creatinine 1.1 Est GFR ( Amer) > 60 Est GFR (Non-Af Amer) 53 Random Glucose 98 Calcium 9.5 Thyroxine (T4) 8.4 TSH 3rd Generation 1.86 Cortisol AM Sample 10/01/18 07:50 WBC RBC Hgb Hct MCV MCH MCHC RDW Plt Count MPV Sodium Potassium Chloride Carbon Dioxide Anion Gap BUN Creatinine Est GFR ( Amer) Est GFR (Non-Af Amer) Random Glucose Calcium Thyroxine (T4) TSH 3rd Generation Cortisol AM Sample 19.5 Temp Pulse Resp BP Pulse Ox 97.9 F 113 H 20 105/72 99 10/03/18 07:17 10/03/18 09:46 10/03/18 07:17 10/03/18 09:46 09/21/18 10:15 Microbiology 10/06/18 12:17 Urine Culture - Final Urine Enterococcus Faecalis Temp Pulse Resp BP Pulse Ox 97.9 F 102 H 22 143/120 H 99 10/09/18 07:36 10/09/18 08:25 10/09/18 07:36 10/09/18 08:25 09/21/18 10:15 Laboratory Results - last 24 hr 10/09/18 09:30 WBC 5.4 D RBC 4.09 Hgb 11.3 L Hct 36.0 MCV 88.0 MCH 27.6 MCHC 31.4 RDW 16.8 H Plt Count 337 MPV 9.8 Gran % 63.5 Lymph % (Auto) 22.0 Baxter % (Auto) 12.4 H Eos % (Auto) 1.9 Baso % (Auto) 0.2 Gran # 3.43 Lymph # (Auto) 1.2 Baxter # (Auto) 0.7 H Eos # (Auto) 0.1 Baso # (Auto) 0.01 No signs of a granulocytosis Temp Pulse Resp BP Pulse Ox 97.9 F 63 20 128/91 H 99 10/10/18 07:31 10/10/18 09:43 10/10/18 07:31 10/10/18 09:43 09/21/18 10:15 Temp Pulse Resp BP Pulse Ox 97.9 F 88 16 73/49 L 99 10/14/18 06:59 10/14/18 10:09 10/14/18 06:59 10/14/18 10:09 09/21/18 10:15 Laboratory Results - last 24 hr 10/16/18 10/16/18 08:15 08:15 WBC 3.6 L D RBC 4.19 Hgb 11.7 L Hct 36.7 MCV 87.6 MCH 27.9 MCHC 31.9 RDW 16.9 H Plt Count 311 MPV 9.5 Gran % 54.0 Lymph % (Auto) 27.4 Baxter % (Auto) 13.6 H Eos % (Auto) 4.7 Baso % (Auto) 0.3 Gran # 1.95 Lymph # (Auto) 1.0 L Baxter # (Auto) 0.5 Eos # (Auto) 0.2 Baso # (Auto) 0.01 Sodium 143 Potassium 3.4 L Chloride 105 Carbon Dioxide 31 Anion Gap 11 BUN 17 Creatinine 0.9 Est GFR ( Amer) > 60 Est GFR (Non-Af Amer) > 60 Random Glucose 129 H Calcium 8.9 Phosphorus 3.3 Magnesium 2.5 H Total Bilirubin 0.3 AST 52 H ALT 46 Alkaline Phosphatase 87 Total Protein 7.9 Albumin 3.7 Globulin 4.2 Albumin/Globulin Ratio 0.9 L Triglycerides 129 Cholesterol 184 LDL Cholesterol Direct 114 HDL Cholesterol 41 Temp Pulse Resp BP Pulse Ox 98.0 F 73 20 113/90 99 10/16/18 06:56 10/16/18 06:56 10/16/18 06:56 10/16/18 06:56 09/21/18 10:15 Temp Pulse Resp BP Pulse Ox 98.4 F 99 H 18 113/68 96 10/17/18 14:15 10/17/18 14:15 10/17/18 14:15 10/17/18 14:15 10/17/18 14:15 Laboratory Results - last 24 hr 10/17/18 09:37 Urine HCG, Qual Negative Temp Pulse Resp BP Pulse Ox 98.2 F 100 H 16 135/76 100 10/20/18 11:21 10/20/18 11:21 10/20/18 11:21 10/20/18 11:21 10/20/18 11:21 Abnormal Lab Results 10/19/18 08:00 Procalcitonin 0.09 L DSM 5 Symptoms Update: Patient is a 48-year-old [place] female with a psychiatric history of Schizoaffective disorder, multiple prior psychiatric admissions both in [place] and the [place]~ most recently hospitalized at [facility] x6 months ago, who was transferred from the medical floor after being treated from 09/10/18-09/12/18 for dysphagia. Pt was presented with depression, disorg anization, paranoia, judaism preoccupation as well as bizarre behavior. On the medical floor patient required 1:1 because she was caught drinking her urine out of the toilet. Patient was trying to punish herself because she didn't deserve to live. Patient attends outpatient psychiatric treatment of [facility]. Her most recent follow up was on September 08, 2018. Patient has been co mpliant with Abilify 10 mg daily, Prozac 10 mg daily Seroquel 100 mg BID as well as Abilify Maintenna last injected September 08, 2018. pt was seen and examined today at the morning time, pt was scheduled for ECT treatment today, now pt is having daily ECT because of severeness of her symptoms. Pt got two treatments already, tolerated them well, shows some improvements which seems to be stable, for the past two days pt did not get any PRN meds for agitation, pt ate with good appetite yesterday, pt communicates in [place] better, yesterday pt was asking other patients if she could help them. as per PMD pt presented "much better". Pt was seen in OR, pt appeared to be calm, somewhat drowsy, pt was able to have meaningful conversation, pt was asking how many ECT treatment she would need to have in the future. Pt signed consent for ECT treatment, pt has a capacity to do so. BL ECT treatment #1 10/17/18, tolerated that well BL ECT treatment #2 10/20/18 tolerated it well pt was weaned off from depakote, morning xanax was discontinued, clozaril was decreased to 100mg am and 200mg po hs. ECT BL #3 this medical writer was continuing to find right dose or of current for the patient started with: 150% 0.3ms BL, 25Hz 8sec, 96.0mC, pt had only 3-4seck of motor seizures which was considered 18% adequate by MECTA analysis, after that 150% 0.5ms BL, 20Hz 8sec, 128.0mC, pt had only 5sec of motor seizures which was considered not therapeutic by MECTA analysis, after that 150% 0.5ms BL, 40Hz 8sec, 256mC, pt had about 5sec of motor seizures which was considered 37%therapeutic by MECTA analysis, after that 150% 1.0ms BL, 20Hz 6.5 sec, 208.0Mc, pt had about 37seconds of motor seizures, which was considered therapeutic by MECTA analysis pt tolerated treatment well, all treatments were spread with the interval of 25- 30sec. as per report pt was confused after procedure. will continue monitoring. staff was educated to continue antibiotics. Discussed with 10/17/2018, EEG within normal limits, no need for patient to have MRI, patient was cleared for ECT. pt was seen by boiler control room operator who cleared pt for ECT pt was seen by PMD , pt was cleared for ECT GI team was called for f/u, diet was advanced discussed with ID 10/10/18, wants to observe patient with no antibiotics. Hem/onc was involved because patient has history of breast cancer. diet was changed, pt eats little better. 10/15/[address], pt and her (next of kin) both agreed for ECT procedure, see 10/15/18 note for more detailed information. No drooling observed/. clozaril was started 10/01/18, pt is currently on 300mg po daily. Diagnostic Results: Schizoaffective Disorder Medication Change: Yes (xanax decreased, ativan as needed, clozaril decreased) Medical Record Reviewed: Yes Consults ordered or reviewed: patient was seen by medical team as well as nephrology team see notes for more detailed information pt was seen by Hem/Onc pt was seen by ID team Neurology involved, discussed 10/14/2018 GI involved cardiology involved Mental Status Examination - Cognitive Function Orientation: Place Memory: Impaired Attention: Poor (some improvement) Concentration: Poor (some improvement) Association: Loose Fund of Knowledge: Poor - Mood Mood: Depressed - Affect Affect: Constricted (calmer today) - Speech Speech: Appropriate - Formal Thought Process Formal Thought Process: Hallucinations (denied today), Delusions, Paranoia, Loosening of associations - Suicidal Ideation Suicidal Ideation: No - Homicidal Ideation Homicidal Ideation: No Goal/Treatment Plan - Goal/Treatment Plan Need for Continued Stay: Remain at risks for inpatient hospitalization, Severe depression anxiety, Discharge may exacerbated symptoms, Severe functional impairment Progress Toward Problem(s) and Goals/Treatment Plan: group, milieu and supportive tx (as tolerated) Clozaril 100mg po daily and 200mg po hs, will titrate accordingly Prozac 40 mg daily for depression and anxiety xanax 0.25mg po bid only PRN and hs for restlessness seroquel discontinued 10/09/2018 ambien only as needed Abilify Maintenna was provided to patient on 09/08/18, no plan to resume Thorazine 50mg po and IM prn ECT #1 10/17/18, pt had about 15 sec of seizures ECT #2 10/20/18, pt had 17 seconds of seizures ECT #3 10/21/18, pt had about 37seconds of seizures ECT #4 10/22/18 neurology involved MRI, pt was not able to tolerate EEG, WNL ID and oncology involved GI follow up hem onc involved boiler control room operator involved SW consultation for discharge plan and social issues Family involvement, pt wanted her to participate in her care family meeting took place 09/19/[address] 10/15/18 CBC with [id number]/2018 no signs of a granulocytosis CBC with differential 10/16/18 no signs of agranulocytosis Patient is registered clozaril REMS Follow up on labs Will monitor closely Pt was educated about risk/benefits and alternatives of medications, coping strategies (safety plan, suicide prevention), relapse prevention, importance of follow up with psychiatrist and therapist, stay away from drugs/alcohol/smoking Estimated Date of D/C: 10/27/18
--- NOTE | 2018-10-21 14:55 | PN ---
DATE: 10/21/2018 REASON FOR CONSULTATION AND FOLLOWUP: Preop evaluation, risk stratification for second dose of ECT. The patient is in psych floor for depression. SUBJECTIVE: The patient denies any chest pain, shortness of breath, or any palpitation. Not in apparent distress. The patient had yesterday ECT done and possibly second round of ECT is going to be today. PHYSICAL EXAMINATION VITAL SIGNS: Temperature afebrile, heart rate 71, blood pressure 110/70. HEENT: PERRLA. Extraocular muscles are intact. NECK: Supple. No carotid bruits. No thyromegaly. CHEST: Clear to auscultation. HEART: S1 and S2, regular. ABDOMEN: Soft. EXTREMITIES: Clubbing and cyanosis negative. LABORATORY DATA: Blood workup; WBC 3.3, hemoglobin 10, hematocrit 31.6, platelet count 274. Chemistry shows sodium 144, potassium 4, chloride 101, carbon dioxide of 26, anion gap of 7, BUN of 14, and creatinine of 0.8. IMPRESSION: A 48-year-old female with a past medical history of significant for schizoaffective disorder; history of breast cancer, status post mastectomy, wedge resection and reconstruction in the past, history of hypothyroidism, admitted with schizoaffective disorder, requiring electroconvulsive therapy. The patient yesterday underwent electroconvulsive therapy and a second dose is going for today. He denies any chest pain or shortness of breath, or any palpitation. No absolute contraindication for second dose. The patient is asymptomatic, suggested to continue electroconvulsive therapy as needed with a moderate risk of underlying comorbidity. No absolute contraindication. Continue metoprolol as ordered 25 p.o. [address].i.d. Thank you Dr. Maribell Ross for providing us the opportunity in taking care of the patient, Yomaira Will. Jasmine Lloyd MD
[2018-10-21] MEDS ORDERED: Alum-Mag Hydrox-Simethicone Susp (30 mL) PO PRN (15:44)
[2018-10-21] MEDS ORDERED: Magnesium Hydroxide Susp 30 ml UD PO PRN (15:44)
[2018-10-22] MEDS: Amoxicillin-Clav 875-125 mg Tab PO SCH ×2 (06:06→17:56)
[2018-10-22] MEDS: Pantoprazole 40 mg EC Tab PO SCH (06:07)
[2018-10-22] MEDS: Levothyroxine 100 MCG TAB PO SCH (06:07)
[2018-10-22] MEDS: Magnesium Oxide 400 mg Tab UD PO SCH ×2 (10:36→17:56)
[2018-10-22] MEDS ORDERED: Propofol 10 mg/ml Inj (20 ML) ONE (10:58)
[2018-10-22] MEDS ORDERED: Lactated Ringer's 1,000 ML IV SCH (11:00)
[2018-10-22] MEDS ORDERED: Succinylcholine 200 mg/10 ml Inj IV ONE (11:00)
[2018-10-22] MEDS ORDERED: Metoprolol 1 mg/ml Inj ONE (11:25)
--- NOTE | 2018-10-22 12:57 | CP.PCM.PN ---
Subjective - Date & Time of Evaluation Date of Evaluation: 10/22/18 Time of Evaluation: 12:00 - Subjective Subjective: Comfortable, afebrile. Objective - Vital Signs/Intake and Output Vital Signs (last 24 hours): Temp Pulse Resp BP Pulse Ox 98.3 F 107 H 17 96/53 L 98 10/21/18 11:20 10/21/18 12:26 10/21/18 11:20 10/21/18 12:26 10/21/18 11:20 - Medications Medications: Current Medications Alprazolam (Xanax) 0.25 mg PO HS [facility]; Protocol Last Admin: 10/20/18 21:03 Dose: 0.25 mg Alprazolam (Xanax) 0.25 mg PO BID PRN; Protocol PRN Reason: anxiety/agitation Stop: 10/23/18 09:16 Amoxicillin/Clavulanate Potassium (Augmentin 875 Mg-125 Mg Tab) 1 tab PO Q12 [facility]; Protocol Last Admin: 10/21/18 06:35 Dose: Not Given Bacitracin (Bacitracin) 1 gm TOP BID [facility] Last Admin: 10/21/18 12:50 Dose: Not Given Chlorpromazine (Thorazine) 50 mg IM Q6H PRN; Protocol PRN Reason: Agitation Last Admin: 10/17/18 23:40 Dose: 50 mg Chlorpromazine (Thorazine) 50 mg PO Q6H PRN; Protocol PRN Reason: psychosis/agitation Last Admin: 10/19/18 23:59 Dose: 50 mg Clozapine (Clozaril) 200 mg PO HS [facility]; Protocol Last Admin: 10/20/18 21:03 Dose: 200 mg Clozapine (Clozaril) 100 mg PO DAILY [facility]; Protocol Fluoxetine HCl (Prozac) 40 mg PO DAILY [facility] Last Admin: 10/20/18 12:15 Dose: 40 mg Folic Acid (Folic Acid) 1 mg PO DAILY [facility] Last Admin: 10/20/18 12:16 Dose: 1 mg Home Med (Home Med) 0.8 unit SC Q2W [facility] Last Admin: 10/14/18 11:49 Dose: 0.8 unit Levothyroxine Sodium (Synthroid) 100 mcg PO 0600 DAT Last Admin: 10/21/18 06:36 Dose: Not Given Magnesium Oxide (Mag-Ox) 400 mg PO BID [facility] Last Admin: 10/21/18 12:51 Dose: Not Given Metoprolol Tartrate (Lopressor) 25 mg PO BRKDIN [facility] Last Admin: 10/21/18 10:30 Dose: Not Given Ondansetron HCl (Zofran Inj) 4 mg IVP ONCE PRN PRN Reason: Nausea/Vomiting Pantoprazole Sodium (Protonix Ec Tab) 40 mg PO 0600 [facility] Last Admin: 10/21/18 06:36 Dose: Not Given Saliva Substitute (Saliva Substitute) 0 ml PO TID PRN PRN Reason: Dry mouth Last Admin: 10/04/18 13:41 Dose: 1 ml Zolpidem Tartrate (Ambien) 5 mg PO HS PRN; Protocol PRN Reason: Insomnia - Labs Labs: 10/21/18 07:30 10/21/18 07:30 - Constitutional Appears: Chronically Ill - Head Exam Head Exam: NORMAL INSPECTION - Respiratory Exam Respiratory Exam: Decreased Breath Sounds - Cardiovascular Exam Cardiovascular Exam: +S1, +S2 - GI/Abdominal Exam GI & Abdominal Exam: Soft. absent: Tenderness Assessment and Plan - Assessment and Plan (Free Text) Plan: Assessment new onset systemic inflammatory response syndrome, with fevers, R/O sepsis, but so far no source determined history asymptomatic bacteriuria with E. faecalis HTN breast cancer S/P radiation therapy psychosis dyslipidemia Plan given a dose of PO Zyvox and continue Augmentin day 5 for 5-7 days (based on previous urine cx); CXR negative for infiltrates, blood, urine cx are negative will continue to monitor clinically discussed with Dr. Leon
--- NOTE | 2018-10-22 14:53 | PCM.PYCHPN ---
Psychiatric Progress Note - Psychiatric Progress Note Patient seen today, length of contact: 45min Patient Chief Complaint: "I am doing okay Doctor" Problems Identified/Issues Discussed: this inspector automatic typewriter attempted to discuss suicide/ homicide prevention, past psychiatric h/o, current psychiatric symptoms, medical problems, risk/benefits and alternatives of medications, medications compliance, coping strategies, substance abuse h/o, relapse prevention, importance of follow up with psychiatrist and therapist, discharge plan. Medical Problems: pt was dehydrated, but doing better dysphagia is better UTI, patient completed course of antibiotics urine analysis showed leukocyte esterase again on 10/01/2018, Infectious disease wants to observe patient without antibiotics, discussed with 10/10/18 neurology consult was called, pt is not improving for the past 3weeks CT scan at the time of admission 09/14/18 was WNL. Discussed with Dr. Deleon 10/14/2018: MRI of the brain was not able to tolerate, d/c by neurology discussed with 10/17/18, patient is cleared for ECT. EEG was WNL Diagnostic Results: 09/14/18 09:10 09/15/18 08:00 Lab Results 09/15/18 08:00: Sodium 140, Potassium 4.0, Chloride 102, Carbon Dioxide 28, Anion Gap 14, BUN 15, Creatinine 1.2, Est GFR ( Amer) 58, Est GFR (Non-Af Amer) 48, Random Glucose 97, Calcium 9.8 09/14/18 17:40: Urine Color Yellow, Urine Appearance Sl cloudy, Urine pH 6.0, Ur Specific [place] 1.010, Urine Protein Negative, Urine Glucose (UA) Negative, Urine Ketones Negative, Urine Blood Small H, Urine Nitrate Positive H, Urine Bilirubin Negative, Urine Urobilinogen 0.2, Ur Leukocyte Esterase Small H, Urine RBC 5 - 10, Urine WBC 20 - 25, Ur Epithelial Cells 10 - 12, Urine Bacteria Many 09/14/18 09:10: RPR Nonreactive 09/14/18 09:10: TSH 3rd Generation 5.59 H 09/14/18 09:10: Sodium 140, Potassium 4.0, Chloride 104, Carbon Dioxide 21, Anion Gap 18, BUN 15, Creatinine 1.6 H, Est GFR ( Amer) 42, Est GFR (Non- Af Amer) 35, Random Glucose 85, Calcium 10.0, Phosphorus 2.8, Magnesium 1.6 L, Total Bilirubin 0.5, AST 89 H D, ALT 57 H, Alkaline Phosphatase 88, Total Pro tein 8.0, Albumin 4.4, Globulin 3.6, Albumin/Globulin Ratio 1.2, Triglycerides 102, Cholesterol 234 H, LDL Cholesterol Direct 155 H, HDL Cholesterol 60 09/14/18 09:10: WBC 4.7 D, RBC 4.39, Hgb 12.4, Hct 37.8, MCV 86.1, MCH 28.2, MCHC 32.8, RDW 16.4 H, Plt Count 360, MPV 9.4, Gran % 50.8, Lymph % (Auto) 34.7, [place] % (Auto) 13.4 H, Eos % (Auto) 0.9 L, Baso % (Auto) 0.2, Gran # 2.39, Lymph # (Auto) 1.6, [place] # (Auto) 0.6, Eos # (Auto) 0.0, Baso # (Auto) 0.01 Microbiology 09/14/18 17:40 Urine Urine Culture - Preliminary Gram Negative [facility] Laboratory Results - last 24 hr 09/19/18 09:55 WBC 4.5 RBC 4.35 Hgb 12.2 Hct 38.3 MCV 88.0 MCH 28.0 MCHC 31.9 RDW 16.6 H Plt Count 318 MPV 9.6 Gran % 54.3 Lymph % (Auto) 30.0 [place] % (Auto) 14.8 H Eos % (Auto) 0.7 L Baso % (Auto) 0.2 Gran # 2.43 Lymph # (Auto) 1.3 [place] # (Auto) 0.7 H Eos # (Auto) 0.0 Baso # (Auto) 0.01 Abnormal Lab Results 09/22/18 09/22/18 07:30 07:30 WBC 3.4 L D RBC 4.34 Hgb 12.2 Hct 37.4 MCV 86.2 MCH 28.1 MCHC 32.6 RDW 16.5 H Plt Count 373 MPV 9.7 Sodium 141 Potassium 5.0 Chloride 107 Carbon Dioxide 25 Anion Gap 14 BUN 18 Creatinine 1.5 H Est GFR ( Amer) 45 Est GFR (Non-Af Amer) 37 Random Glucose 98 Calcium 10.2 Laboratory Results - last 72 hr 09/25/18 14:47 POC Glucose (mg/dL) 94 Vital Signs Temp Pulse Resp BP Pulse Ox 09/27/18 16:00 52 L 108/81 09/27/18 08:40 84 122/67 09/27/18 07:00 97.3 F L 84 18 122/67 09/26/18 08:04 121 H 136/114 H 09/26/18 07:26 98.2 F 54 L 22 136/114 H 09/25/18 09:08 80 124/70 09/24/18 16:00 93 H 112/74 09/24/18 09:17 97/50 L 09/24/18 07:20 97.1 F L 82 16 97/50 L 09/24/18 07:18 97.1 F L 82 20 97/50 L 09/23/18 16:00 86 110/67 09/23/18 06:49 97.7 F 77 20 114/69 09/22/18 16:00 83 103/57 L 09/22/18 12:26 97 H 110/72 09/21/18 10:21 90 116/71 09/21/18 10:15 98.4 F 90 20 116/71 99 09/20/18 15:45 100 H 95/70 L 09/20/18 10:04 93 H 146/96 H 09/20/18 06:48 98.1 F 79 16 98/60 L 09/19/18 16:00 60 116/88 09/19/18 07:28 97.3 F L 91 H 20 115/75 09/17/18 15:00 73 H 128/106 H 09/17/18 09:30 68 116/62 09/17/18 07:25 97.1 F L 80 18 92/58 L 09/16/18 16:00 102 H 120/81 09/16/18 09:47 104 H 124/99 H 09/16/18 07:17 98.0 F 87 18 98/59 L 09/15/18 09:07 103 H 106/70 09/15/18 07:00 97.8 F 105 H 19 86/60 L 09/14/18 16:28 90 139/118 H 09/14/18 07:00 97.9 F 60 17 115/72 09/13/18 08:30 114 H 20 129/100 H 11/10/18 07:00 98.5 F 55 L 22 169/114 H 09/13/18 06:50 55 L 169/114 H 09/12/18 16:11 97.2 F L 80 20 114/64 09/12/18 15:39 20 Abnormal Lab Results 09/29/18 19:14 WBC 4.8 RBC 4.34 Hgb 12.3 Hct 38.4 MCV 88.5 MCH 28.3 MCHC 32.0 RDW 16.7 H Plt Count 261 MPV 10.7 Gran % 39.9 L Lymph % (Auto) 42.0 H [place] % (Auto) 15.8 H Eos % (Auto) 1.9 Baso % (Auto) 0.4 Gran # 1.90 Lymph # (Auto) 2.0 [place] # (Auto) 0.8 H Eos # (Auto) 0.1 Baso # (Auto) 0.02 Abnormal Lab Results 10/01/18 10/01/18 10/01/18 07:50 07:50 07:50 WBC 3.2 L D RBC 4.39 Hgb 12.2 Hct 38.8 MCV 88.4 MCH 27.8 MCHC 31.4 RDW 16.7 H Plt Count 280 MPV 9.9 Sodium 141 Potassium 4.2 Chloride 108 H Carbon Dioxide 28 Anion Gap 10 BUN 16 Creatinine 1.1 Est GFR ( Amer) > 60 Est GFR (Non-Af Amer) 53 Random Glucose 98 Calcium 9.5 Thyroxine (T4) 8.4 TSH 3rd Generation 1.86 Cortisol AM Sample 10/01/18 07:50 WBC RBC Hgb Hct MCV MCH MCHC RDW Plt Count MPV Sodium Potassium Chloride Carbon Dioxide Anion Gap BUN Creatinine Est GFR ( Amer) Est GFR (Non-Af Amer) Random Glucose Calcium Thyroxine (T4) TSH 3rd Generation Cortisol AM Sample 19.5 Temp Pulse Resp BP Pulse Ox 97.9 F 113 H 20 105/72 99 10/03/18 07:17 10/03/18 09:46 10/03/18 07:17 10/03/18 09:46 09/21/18 10:15 Microbiology 10/06/18 12:17 Urine Culture - Final Urine Enterococcus Faecalis Temp Pulse Resp BP Pulse Ox 97.9 F 102 H 22 143/120 H 99 10/09/18 07:36 10/09/18 08:25 10/09/18 07:36 10/09/18 08:25 09/21/18 10:15 Laboratory Results - last 24 hr 10/09/18 09:30 WBC 5.4 D RBC 4.09 Hgb 11.3 L Hct 36.0 MCV 88.0 MCH 27.6 MCHC 31.4 RDW 16.8 H Plt Count 337 MPV 9.8 Gran % 63.5 Lymph % (Auto) 22.0 [place] % (Auto) 12.4 H Eos % (Auto) 1.9 Baso % (Auto) 0.2 Gran # 3.43 Lymph # (Auto) 1.2 [place] # (Auto) 0.7 H Eos # (Auto) 0.1 Baso # (Auto) 0.01 No signs of a granulocytosis Temp Pulse Resp BP Pulse Ox 97.9 F 63 20 128/91 H 99 10/10/18 07:31 10/10/18 09:43 10/10/18 07:31 10/10/18 09:43 09/21/18 10:15 Temp Pulse Resp BP Pulse Ox 97.9 F 88 16 73/49 L 99 10/14/18 06:59 10/14/18 10:09 10/14/18 06:59 10/14/18 10:09 09/21/18 10:15 Laboratory Results - last 24 hr 10/16/18 10/16/18 08:15 08:15 WBC 3.6 L D RBC 4.19 Hgb 11.7 L Hct 36.7 MCV 87.6 MCH 27.9 MCHC 31.9 RDW 16.9 H Plt Count 311 MPV 9.5 Gran % 54.0 Lymph % (Auto) 27.4 [place] % (Auto) 13.6 H Eos % (Auto) 4.7 Baso % (Auto) 0.3 Gran # 1.95 Lymph # (Auto) 1.0 L [place] # (Auto) 0.5 Eos # (Auto) 0.2 Baso # (Auto) 0.01 Sodium 143 Potassium 3.4 L Chloride 105 Carbon Dioxide 31 Anion Gap 11 BUN 17 Creatinine 0.9 Est GFR ( Amer) > 60 Est GFR (Non-Af Amer) > 60 Random Glucose 129 H Calcium 8.9 Phosphorus 3.3 Magnesium 2.5 H Total Bilirubin 0.3 AST 52 H ALT 46 Alkaline Phosphatase 87 Total Protein 7.9 Albumin 3.7 Globulin 4.2 Albumin/Globulin Ratio 0.9 L Triglycerides 129 Cholesterol 184 LDL Cholesterol Direct 114 HDL Cholesterol 41 Temp Pulse Resp BP Pulse Ox 98.0 F 73 20 113/90 99 10/16/18 06:56 10/16/18 06:56 10/16/18 06:56 10/16/18 06:56 09/21/18 10:15 Temp Pulse Resp BP Pulse Ox 98.4 F 99 H 18 113/68 96 10/17/18 14:15 10/17/18 14:15 10/17/18 14:15 10/17/18 14:15 10/17/18 14:15 Laboratory Results - last 24 hr 10/17/18 09:37 Urine HCG, Qual Negative Temp Pulse Resp BP Pulse Ox 98.2 F 100 H 16 135/76 100 10/20/18 11:21 10/20/18 11:21 10/20/18 11:21 10/20/18 11:21 10/20/18 11:21 Abnormal Lab Results 10/19/18 08:00 Procalcitonin 0.09 L Temp Pulse Resp BP Pulse Ox 98 F 102 H 14 104/66 95 10/22/18 11:55 10/22/18 11:55 10/22/18 11:55 10/22/18 11:55 10/22/18 11:55 DSM 5 Symptoms Update: Patient is a 48-year-old [place] female with a psychiatric history of Schizoaffective disorder, multiple prior psychiatric admissions both in [place] and the [place]~ most recently hospitalized at [facility] x6 months ago, who was transferred from the medical floor after being treated from 09/10/18-09/12/18 for dysphagia. Pt was presented with depression, disorganization, paranoia, orthodoxy preoccupation as well as bizarre behavior. On the medical floor patient required 1:1 because she was caught drinking her urine out of the toilet. Patient was trying to punish herself because she didn't deserve to live. Patient attends outpatient psychiatric treatment of [facility]. Her most recent follow up was on September 08, 2018. Patient has been compliant with Abilify 10 mg daily, Prozac 10 mg daily Seroquel 100 mg BID as well as Twila Hartman last injected September 08, 2018. pt was seen and examined today at the morning time, pt was scheduled for ECT treatment today, now pt is having daily ECT because of severeness of her symptoms. Pt got 3 treatments already, tolerated them well, shows stable improvements, pt is currently off 1:1 for the past 24hrs, did not get any PRNs since 10/19/18, pt is more coherent, able to have meaningful conversation, prefer tp speak in Guyanese, but at times speaks in Georgian, pt ate with good appetite yesterday. pt asked to give a call to her , had prolonged conversation 10/21/18, as per pt's "she is doing much better, when could we take her back home?". as per staff pt still has episodes of confusion, psychosis, but redirectable, had a good night sleep. Pt was seen in OR, pt appeared to be calm, somewhat drowsy, pt was able to have meaningful conversation, pt was asking how many ECT treatment she would need to have in the future. Pt signed consent for ECT treatment, pt has a capacity to do so. pt said that she does not hear any voices today, last time was yesterday. BL ECT treatment #1 10/17/18, tolerated that well BL ECT treatment #2 10/20/18 tolerated it well BL ECT treatment #3 10/21/18 tolerated it well, but was restless after the procedure, pt needed to have 4xtreatments in order to have productive seizures. BL ECT treatment #4 10/22/18, pt needed to have 3treatments in order to have therapeutic seizures because this inspector automatic typewriter is weaning pt off from majority of meds and this write ris continuing to fund right dose of current for the pt. pt 150% 0.3ms BL, 25Hz 8sec, 96.0mC, pt had only 7seck of motor seizures which was considered 20% adequate by MECTA analysis, after that 150% 0.3ms BL, 40Hz 8sec, 153.0mC, pt had only 15sec of motor seizures which was considered 58% therapeutic by MECTA analysis, after that 150% 0.3ms BL, 50Hz 8sec, 192mC, pt had about 23sec of motor seizures which was considered 53%therapeutic by MECTA analysis, this inspector automatic typewriter believes that pt had motor+EEG recording seizure activities for 23sec and no additional treatment indicated. pt tolerated treatment well, all treatments were spread with the interval of 25- 30sec. as per report pt was mildly restless, ate but overall improving signific antly. Discussed with 10/17/2018, EEG within normal limits, no need for patient to have MRI, patient was cleared for ECT. pt was seen by polymer scientist who cleared pt for ECT pt was seen by PMD , pt was cleared for ECT GI team was called for f/u, diet was advanced discussed with ID 10/10/18, wants to observe patient with no antibiotics. Hem/onc was involved because patient has history of breast cancer. 10/15/[address] meeting [address], pt and her (next of kin) both agreed for ECT procedure, see 10/15/18 note for more detailed information. No drooling observed/. clozaril was started 10/01/18, pt is currently on 300mg po daily, plan to taper it off because it was not beneficial. Diagnostic Results: Schizoaffective Disorder Medication Change: Yes (clozaril decreased, prozac decreased) Medical Record Reviewed: Yes Consults ordered or reviewed: patient was seen by medical team as well as nephrology team see notes for more detailed information pt was seen by Hem/Onc pt was seen by ID team Neurology involved, discussed 10/14/2018 GI involved cardiology involved Mental Status Examination - Cognitive Function Orientation: Place Memory: Impaired Attention: Poor (some improvement) Concentration: Poor (some improvement) Association: Loose Fund of Knowledge: Poor - Mood Mood: Depressed - Affect Affect: Constricted (calmer today) - Speech Speech: Appropriate - Formal Thought Process Formal Thought Process: Hallucinations (denied today), Delusions, Paranoia (pt is less paranoid), Loosening of associations - Suicidal Ideation Suicidal Ideation: No - Homicidal Ideation Homicidal Ideation: No Goal/Treatment Plan - Goal/Treatment Plan Need for Continued Stay: Remain at risks for inpatient hospitalization, Severe depression anxiety, Discharge may exacerbated symptoms, Severe functional impairment Progress Toward Problem(s) and Goals/Treatment Plan: group, milieu and supportive tx (as tolerated) Clozaril 100mg po daily and 200mg po hs, will taper it down Prozac 20 mg daily for depression and anxiety xanax 0.25mg po bid only PRN and hs for restlessness seroquel discontinued 10/09/2018 ambien only as needed Zairaclyde Francistenna was provided to patient on 09/08/18, no plan to resume Thorazine 50mg po and IM prn ECT #1 10/17/18, pt had about 15 sec of seizures ECT #2 10/20/18, pt had 17 seconds of seizures ECT #3 10/21/18, pt had about 37seconds of seizures ECT #4 10/22/18, pt had 23 seconds of motor/eeg seizures neurology involved MRI, pt was not able to tolerate EEG, WNL ID and oncology involved GI follow up hem onc involved polymer scientist involved consultation for discharge plan and social issues Family involvement, pt wanted her to participate in her care family meeting took place 09/19/[address] 10/15/18 CBC with [id number]/6/2018 no signs of a granulocytosis CBC with differential 10/16/18 no signs of agranulocytosis Patient is registered clozaril REMS Follow up on labs Will monitor closely Pt was educated about risk/benefits and alternatives of medications, coping strategies (safety plan, suicide prevention), relapse prevention, importance of follow up with psychiatrist and therapist, stay away from drugs/alcohol/smoking Estimated Date of D/C: 10/27/18
[2018-10-22] MEDS: Bacitracin Ointment 30 GM TUBE TOP SCH (17:56)
--- NOTE | 2018-10-22 19:33 | PN ---
DATE: 10/22/2018 REASON FOR CONSULTATION: Follow up preop evaluation, risk stratification for second round of ECT. The patient is in psych floor for depression in room 508, bed 1, possible ECT today. SUBJECTIVE: The patient denies any chest pain, shortness of breath, or any palpitation. Complained of pain in the left quadrant, awaiting to go for ECT today. PHYSICAL EXAMINATION GENERAL: Not in apparent distress. VITAL SIGNS: Temperature afebrile, heart rate 100, blood pressure 108/72. HEENT: PERRLA. Extraocular muscles are intact. NECK: Supple. No carotid bruits. No thyromegaly. CHEST: Clear to auscultation. HEART: S1 and S2, regular. ABDOMEN: Soft. EXTREMITIES: Clubbing and cyanosis negative. LABORATORY DATA: Blood workup as follows: WBC 3.6, hemoglobin 10, hematocrit 31.6, and platelet count 274. Chemistry shows sodium 141, potassium 4, chloride 101, carbon dioxide 26, anion gap of 7, BUN 14, and creatinine 0.8. Total protein 6.1, albumin 2.7. IMPRESSION: Protein-calorie malnutrition, mild to moderate, was not present on admission. A 48-year-old female with psychotic disorder, schizoaffective disorder, history of breast cancer, status post mastectomy, wedge resection and reconstruction in the past, history of hypothyroidism, schizoaffective disorder, for electroconvulsive therapy. First round of electroconvulsive therapy was done, possibly second round of electroconvulsive therapy today. History of as mentioned hypoproteinemia, hypoalbuminemia, [id number] protein-calorie malnutrition which was not present on admission, complained of atypical chest pain, left . RECOMMENDATION: Continue low-dose beta-carolina. Add ibuprofen for chest pain, three doses and I will start some Glucerna for protein-calorie malnutrition. We will add supplement for Glucerna for protein-calorie malnutrition. We will follow with you. Thank you Dr. Ross for providing us the opportunity in taking care of the patient, Yomaira Zhannaisaac. Jasmine Lloyd MD
[2018-10-23] MEDS: Amoxicillin-Clav 875-125 mg Tab PO SCH (06:25)
[2018-10-23] MEDS: Pantoprazole 40 mg EC Tab PO SCH (06:25)
[2018-10-23] MEDS: Levothyroxine 100 MCG TAB PO SCH (06:25)
--- NOTE | 2018-10-23 11:57 | PN ---
DATE: 10/22/2018 SUBJECTIVE: She is comfortable, sitting with her , she seems a lot better than before, responded very well to ECT. She has no any physical complaint. PHYSICAL EXAMINATION: On 10/22/2018; VITAL SIGNS: Temperature 98, heart rate 107, blood pressure 128/76, and respirations 18. HEAD AND NECK: Normal. No JVD. No thyromegaly. CHEST: Clear bilateral. CARDIAC: First sound and second sound normal. ABDOMEN: Soft, obese, and nontender. EXTREMITIES: No edema. NEUROLOGICAL: Normal. LABORATORY DATA: Last laboratory study shows on 10/21/2018; sodium 141, potassium 4, chloride 112, bicarb 26, BUN 14, creatinine is 3.8, and procalcitonin very very low 0.09. IMPRESSION AND PLAN: 1. Schizoaffective disorder, seems better with ECT. Continue medical therapy, Clozaril and ECT. We will monitor her labs. 2. The patient had laboratory study; white count 3.6, hemoglobin 10, hematocrit 31.6, and her platelets 274, seems doing well. Continue followup in that too. 3. History of urinary track infections, the hydration seems better. 4. History of hypothyroidism. She is on levothyroxine. 5. Dysphagia. The patient tolerating the diet well, just drink fluid while eating and make it easy for her, we will continue current treatment, we will discuss for gastrointestinal for possible outpatient interventions for that. Currently, she is tolerating diet well. Continue current therapy. CURRENT MEDICATIONS: She takes Ambien at night, Bactroban, Clozaril 200 mg at night and 100 p.o. in the morning, folic acid, Lopressor 25 mg two times a day, Maalox, Miralax, magnesium oxide, milk of magnesia, Protonix 40 mg, Prozac 20 mg, Synthroid 100 mcg, Thorazine 50 mg every 6 hours p.r.n. p.o., also Xanax 0.25 mg p.o. at bedtime, and also Zofran p.r.n. Continue current therapy. Igor Ca MD
[2018-10-23] MEDS ORDERED: Sodium Chloride 0.9% 1,000 ML IV SCH (12:30)
[2018-10-23] MEDS ORDERED: Propofol 10 mg/ml Inj (20 ML) ONE (12:30)
[2018-10-23] MEDS ORDERED: Succinylcholine 200 mg/10 ml Inj IV ONE (12:31)
[2018-10-23] MEDS: Magnesium Oxide 400 mg Tab UD PO SCH ×2 (13:10→16:00)
[2018-10-23] MEDS: Bacitracin Ointment 30 GM TUBE TOP SCH ×3 (14:26→15:49)
--- NOTE | 2018-10-23 14:47 | PCM.PYCHPN ---
Psychiatric Progress Note - Psychiatric Progress Note Patient seen today, length of contact: 45min Patient Chief Complaint: "I am doing okay Doctor, When do think I will be stable?" Problems Identified/Issues Discussed: this insurance underwriter sales attempted to discuss suicide/ homicide prevention, past psychiatric h/o, current psychiatric symptoms, medical problems, risk/benefits and al ternatives of medications, medications compliance, coping strategies, substance abuse h/o, relapse prevention, importance of follow up with psychiatrist and therapist, discharge plan. Medical Problems: pt was dehydrated, but doing better dysphagia is better UTI, patient completed course of antibiotics urine analysis showed leukocyte esterase again on 10/01/2018, Infectious disease wants to observe patient without antibiotics, discussed with 10/10/18 neurology consult was called, pt is not improving for the past 3weeks CT scan at the time of admission 09/14/18 was WNL. Discussed with Dr. Deleon 10/14/2018: MRI of the brain was not able to tolerate, d/c by neurology discussed with 10/17/18, patient is cleared for ECT. EEG was WNL Diagnostic Results: 09/14/18 09:10 09/15/18 08:00 Lab Results 09/15/18 08:00: Sodium 140, Potassium 4.0, Chloride 102, Carbon Dioxide 28, Anion Gap 14, BUN 15, Creatinine 1.2, Est GFR ( Amer) 58, Est GFR (Non-Af Amer) 48, Random Glucose 97, Calcium 9.8 09/14/18 17:40: Urine Color Yellow, Urine Appearance Sl cloudy, Urine pH 6.0, Ur Specific [place] 1.010, Urine Protein Negative, Urine Glucose (UA) Negative, Urine Ketones Negative, Urine Blood Small H, Urine Nitrate Positive H, Urine Bilirubin Negative, Urine Urobilinogen 0.2, Ur Leukocyte Esterase Small H, Urine RBC 5 - 10, Urine WBC 20 - 25, Ur Epithelial Cells 10 - 12, Urine Bacteria Many 09/14/18 09:10: RPR Nonreactive 09/14/18 09:10: TSH 3rd Generation 5.59 H 09/14/18 09:10: Sodium 140, Potassium 4.0, Chloride 104, Carbon Dioxide 21, An ion Gap 18, BUN 15, Creatinine 1.6 H, Est GFR ( Amer) 42, Est GFR (Non-Af Amer) 35, Random Glucose 85, Calcium 10.0, Phosphorus 2.8, Magnesium 1.6 L, Total Bilirubin 0.5, AST 89 H D, ALT 57 H, Alkaline Phosphatase 88, Total Protein 8.0, Albumin 4.4, Globulin 3.6, Albumin/Globulin Ratio 1.2, T riglycerides 102, Cholesterol 234 H, LDL Cholesterol Direct 155 H, HDL Cholesterol 60 09/14/18 09:10: WBC 4.7 D, RBC 4.39, Hgb 12.4, Hct 37.8, MCV 86.1, MCH 28.2, MCHC 32.8, RDW 16.4 H, Plt Count 360, MPV 9.4, Gran % 50.8, Lymph % (Auto) 34.7, [place] % (Auto) 13.4 H, Eos % (Auto) 0.9 L, Baso % (Auto) 0.2, Gran # 2.39, Lymph # (Auto) 1.6, [place] # (Auto) 0.6, Eos # (Auto) 0.0, Baso # (Auto) 0.01 Microbiology 09/14/18 17:40 Urine Urine Culture - Preliminary Gram Negative [facility] Laboratory Results - last 24 hr 09/19/18 09:55 WBC 4.5 RBC 4.35 Hgb 12.2 Hct 38.3 MCV 88.0 MCH 28.0 MCHC 31.9 RDW 16.6 H Plt Count 318 MPV 9.6 Gran % 54.3 Lymph % (Auto) 30.0 [place] % (Auto) 14.8 H Eos % (Auto) 0.7 L Baso % (Auto) 0.2 Gran # 2.43 Lymph # (Auto) 1.3 [place] # (Auto) 0.7 H Eos # (Auto) 0.0 Baso # (Auto) 0.01 Abnormal Lab Results 09/22/18 09/22/18 07:30 07:30 WBC 3.4 L D RBC 4.34 Hgb 12.2 Hct 37.4 MCV 86.2 MCH 28.1 MCHC 32.6 RDW 16.5 H Plt Count 373 MPV 9.7 Sodium 141 Potassium 5.0 Chloride 107 Carbon Dioxide 25 Anion Gap 14 BUN 18 Creatinine 1.5 H Est GFR ( Amer) 45 Est GFR (Non-Af Amer) 37 Random Glucose 98 Calcium 10.2 Laboratory Results - last 72 hr 09/25/18 14:47 POC Glucose (mg/dL) 94 Vital Signs Temp Pulse Resp BP Pulse Ox 09/27/18 16:00 52 L 108/81 09/27/18 08:40 84 122/67 09/27/18 07:00 97.3 F L 84 18 122/67 09/26/18 08:04 121 H 136/114 H 09/26/18 07:26 98.2 F 54 L 22 136/114 H 09/25/18 09:08 80 124/70 09/24/18 16:00 93 H 112/74 09/24/18 09:17 97/50 L 09/24/18 07:20 97.1 F L 82 16 97/50 L 09/24/18 07:18 97.1 F L 82 20 97/50 L 09/23/18 16:00 86 110/67 09/23/18 06:49 97.7 F 77 20 114/69 09/22/18 16:00 83 103/57 L 09/22/18 12:26 97 H 110/72 09/21/18 10:21 90 116/71 09/21/18 10:15 98.4 F 90 20 116/71 99 09/20/18 15:45 100 H 95/70 L 09/20/18 10:04 93 H 146/96 H 09/20/18 06:48 98.1 F 79 16 98/60 L 09/19/18 16:00 60 116/88 09/19/18 07:28 97.3 F L 91 H 20 115/75 09/17/18 15:00 73 H 128/106 H 09/17/18 09:30 68 116/62 09/17/18 07:25 97.1 F L 80 18 92/58 L 09/16/18 16:00 102 H 120/81 09/16/18 09:47 104 H 124/99 H 09/16/18 07:17 98.0 F 87 18 98/59 L 09/15/18 09:07 103 H 106/70 09/15/18 07:00 97.8 F 105 H 19 86/60 L 09/14/18 16:28 90 139/118 H 09/14/18 07:00 97.9 F 60 17 115/72 09/13/18 08:30 114 H 20 129/100 H 09/13/18 07:00 98.5 F 55 L 22 169/114 H 09/13/18 06:50 55 L 169/114 H 09/12/18 16:11 97.2 F L 80 20 114/64 09/12/18 15:39 20 Abnormal Lab Results 09/29/18 19:14 WBC 4.8 RBC 4.34 Hgb 12.3 Hct 38.4 MCV 88.5 MCH 28.3 MCHC 32.0 RDW 16.7 H Plt Count 261 MPV 10.7 Gran % 39.9 L Lymph % (Auto) 42.0 H [place] % (Auto) 15.8 H Eos % (Auto) 1.9 Baso % (Auto) 0.4 Gran # 1.90 Lymph # (Auto) 2.0 [place] # (Auto) 0.8 H Eos # (Auto) 0.1 Baso # (Auto) 0.02 Abnormal Lab Results 10/01/18 10/01/18 10/01/18 07:50 07:50 07:50 WBC 3.2 L D RBC 4.39 Hgb 12.2 Hct 38.8 MCV 88.4 MCH 27.8 MCHC 31.4 RDW 16.7 H Plt Count 280 MPV 9.9 Sodium 141 Potassium 4.2 Chloride 108 H Carbon Dioxide 28 Anion Gap 10 BUN 16 Creatinine 1.1 Est GFR ( Amer) > 60 Est GFR (Non-Af Amer) 53 Random Glucose 98 Calcium 9.5 Thyroxine (T4) 8.4 TSH 3rd Generation 1.86 Cortisol AM Sample 10/01/18 07:50 WBC RBC Hgb Hct MCV MCH MCHC RDW Plt Count MPV Sodium Potassium Chloride Carbon Dioxide Anion Gap BUN Creatinine Est GFR ( Amer) Est GFR (Non-Af Amer) Random Glucose Calcium Thyroxine (T4) TSH 3rd Generation Cortisol AM Sample 19.5 Temp Pulse Resp BP Pulse Ox 97.9 F 113 H 20 105/72 99 10/03/18 07:17 10/03/18 09:46 10/03/18 07:17 10/03/18 09:46 09/21/18 10:15 Microbiology 10/06/18 12:17 Urine Culture - Final Urine Enterococcus Faecalis Temp Pulse Resp BP Pulse Ox 97.9 F 102 H 22 143/120 H 99 10/09/18 07:36 10/09/18 08:25 10/09/18 07:36 10/09/18 08:25 09/21/18 10:15 Laboratory Results - last 24 hr 10/09/18 09:30 WBC 5.4 D RBC 4.09 Hgb 11.3 L Hct 36.0 MCV 88.0 MCH 27.6 MCHC 31.4 RDW 16.8 H Plt Count 337 MPV 9.8 Gran % 63.5 Lymph % (Auto) 22.0 [place] % (Auto) 12.4 H Eos % (Auto) 1.9 Baso % (Auto) 0.2 Gran # 3.43 Lymph # (Auto) 1.2 [place] # (Auto) 0.7 H Eos # (Auto) 0.1 Baso # (Auto) 0.01 No signs of a granulocytosis Temp Pulse Resp BP Pulse Ox 97.9 F 63 20 128/91 H 99 10/10/18 07:31 10/10/18 09:43 10/10/18 07:31 10/10/18 09:43 09/21/18 10:15 Temp Pulse Resp BP Pulse Ox 97.9 F 88 16 73/49 L 99 10/14/18 06:59 10/14/18 10:09 10/14/18 06:59 10/14/18 10:09 09/21/18 10:15 Laboratory Results - last 24 hr 10/16/18 10/16/18 08:15 08:15 WBC 3.6 L D RBC 4.19 Hgb 11.7 L Hct 36.7 MCV 87.6 MCH 27.9 MCHC 31.9 RDW 16.9 H Plt Count 311 MPV 9.5 Gran % 54.0 Lymph % (Auto) 27.4 [place] % (Auto) 13.6 H Eos % (Auto) 4.7 Baso % (Auto) 0.3 Gran # 1.95 Lymph # (Auto) 1.0 L [place] # (Auto) 0.5 Eos # (Auto) 0.2 Baso # (Auto) 0.01 Sodium 143 Potassium 3.4 L Chloride 105 Carbon Dioxide 31 Anion Gap 11 BUN 17 Creatinine 0.9 Est GFR ( Amer) > 60 Est GFR (Non-Af Amer) > 60 Random Glucose 129 H Calcium 8.9 Phosphorus 3.3 Magnesium 2.5 H Total Bilirubin 0.3 AST 52 H ALT 46 Alkaline Phosphatase 87 Total Protein 7.9 Albumin 3.7 Globulin 4.2 Albumin/Globulin Ratio 0.9 L Triglycerides 129 Cholesterol 184 LDL Cholesterol Direct 114 HDL Cholesterol 41 Temp Pulse Resp BP Pulse Ox 98.0 F 73 20 113/90 99 10/16/18 06:56 10/16/18 06:56 10/16/18 06:56 10/16/18 06:56 09/21/18 10:15 Temp Pulse Resp BP Pulse Ox 98.4 F 99 H 18 113/68 96 10/17/18 14:15 10/17/18 14:15 10/17/18 14:15 10/17/18 14:15 10/17/18 14:15 Laboratory Results - last 24 hr 10/17/18 09:37 Urine HCG, Qual Negative Temp Pulse Resp BP Pulse Ox 98.2 F 100 H 16 135/76 100 10/20/18 11:21 10/20/18 11:21 10/20/18 11:21 10/20/18 11:21 10/20/18 11:21 Abnormal Lab Results 10/19/18 08:00 Procalcitonin 0.09 L Temp Pulse Resp BP Pulse Ox 98 F 102 H 14 104/66 95 10/22/18 11:55 10/22/18 11:55 10/22/18 11:55 10/22/18 11:55 10/22/18 11:55 DSM 5 Symptoms Update: Patient is a 48-year-old [place]oc[place] female with a psychiatric history of Schizoaffective disorder, multiple prior psychiatric admissions both in [place] and the [place]~ most recently hospitalized at [facility] x6 months ago, who was transferred from the medical floor after being treated from 09/10/18-09/12/18 for dysphagia. Pt was presented with depression, disorganization, paranoia, denominational preoccupation as well as bizarre behavior. On the medical floor patient required 1:1 because she was caught drinking her urine out of the toilet. Patient was trying to punish herself because she didn't deserve to live. Patient attends outpatient psychiatric treatment of [facility]. Her most recent follow up was on September 08, 2018. Patient has been compliant with Abilify 10 mg daily, Prozac 10 mg daily Seroquel 100 mg BID as well as Abilify Devan last injected September 08, 2018. pt was seen and examined today at the morning time, pt was scheduled for ECT treatment today, now pt is having daily ECT because of severeness of her symptoms, most likely it will be the last treatment for this week. pt tolerated ECT well, shows stable improvements, pt is currently off 1:1, this insurance underwriter sales is tapering down her medications. pt is not required any PRN meds so far. pt is more coherent, able to have meaningful conversation, prefer speak in Ukrainian, but at times speaks in Telugu pt eats with good appetite pt was visited by her and two daughters yesterday. as per staff pt still has episodes of confusion, psychosis, but redirectable, had a good night sleep. Pt was seen in OR, pt appeared to be calm, somewhat drowsy, pt was able to have meaningful conversation, pt was asking how many ECT treatment she would need to have in the future, asked "doctor, when do you think I will be improving?", pt was educated that she is already improving. pt denied any psychotic symptoms, but at times has circumstantial and tangential and disorganized thought process. Pt signed consent for ECT treatment, pt has a capacity to do so. BL ECT treatment #1 10/17/18, tolerated that well BL ECT treatment #2 10/20/18 tolerated it well BL ECT treatment #3 10/21/18 tolerated it well, but was restless after the procedure, pt needed to have 4xtreatments in order to have productive seizures. BL ECT treatment #4 10/22/18, pt needed to have 3treatments in order to have therapeutic seizures. BL ECT treatment #5 10/23/18, will start with the previous parameters when pt had productive seizures. 150% 0.3ms BL, 50Hz 8sec, 192mC, pt had about 8sec of motor seizures which was considered to be 30%therapeutic by MECTA analysis. this insurance underwriter sales gave another tx 150% 0.5ms BL, 50Hz 8sec, 320mC, pt had about 20sec of motor seizures which was considered to be 66%likely adequate therapeutic seizures by MECTA analysis. pt tolerated treatment well, treatments were spread with the interval of 25- 30sec. As per staff report patient ate, had a nap, no agitation or aggression, presented well. Discussed with 10/17/2018, EEG within normal limits, no need for patient to have MRI, patient was cleared for ECT. pt was seen by optical instrument inspector who cleared pt for ECT pt was seen by PMD , pt was cleared for ECT GI team was called for f/u, diet was advanced discussed with ID 10/10/18, wants to observe patient with no antibiotics. Hem/onc was involved because patient has history of breast cancer. 10/15/[address], pt and her (next of kin) both agreed for ECT procedure, see 10/15/18 note for more detailed information. No drooling observed/. clozaril was started 10/01/18, pt is currently on tapering dose of clozaril, with the plan to wean it off because patient was not improving on Clozaril. Diagnostic Results: Schizoaffective Disorder Medication Change: Yes (clozaril decreased, prozac decreased) Medical Record Reviewed: Yes Consults ordered or reviewed: patient was seen by medical team as well as nephrology team see notes for more detailed information pt was seen by Hem/Onc pt was seen by ID team Neurology involved, discussed 10/14/2018 GI involved cardiology involved Mental Status Examination - Cognitive Function Orientation: Place Memory: Impaired Attention: Poor (some improvement) Concentration: Poor (some improvement) Association: Loose Fund of Knowledge: Poor - Mood Mood: Depressed - Affect Affect: Constricted (calmer today) - Speech Speech: Appropriate - Formal Thought Process Formal Thought Process: Hallucinations (denied today), Delusions, Paranoia (pt is less paranoid), Loosening of associations - Suicidal Ideation Suicidal Ideation: No - Homicidal Ideation Homicidal Ideation: No Goal/Treatment Plan - Goal/Treatment Plan Need for Continued Stay: Remain at risks for inpatient hospitalization, Severe depression anxiety, Discharge may exacerbated symptoms, Severe functional impairment Progress Toward Problem(s) and Goals/Treatment Plan: group, milieu and supportive tx (as tolerated) Clozaril 50mg po daily and 150mg po hs, will taper it down Prozac 10 mg daily for depression and anxiety xanax 0.25mg po bid only PRN and hs for restlessness seroquel discontinued 10/09/2018 ambien only as needed Abilify Maintenna was provided to patient on 09/08/18, no plan to resume Thorazine 50mg po and IM prn ECT #1 10/17/18, pt had about 15 sec of seizures ECT #2 10/20/18, pt had 17 seconds of seizures ECT #3 10/21/18, pt had about 37seconds of seizures ECT #4 10/22/18, pt had 23 seconds of motor/eeg seizures ECT #5 10/23/18 pt had about 20 seconds of motor/EEG seizures neurology involved MRI, pt was not able to tolerate EEG, WNL ID and oncology involved GI follow up hem onc involved optical instrument inspector involved consultation for discharge plan and social issues Family involvement, pt wanted her to participate in her care family meeting took place 09/19/[address] 10/15/18 CBC with /6/2018 no signs of a granulocytosis CBC with differential 10/16/18 no signs of agranulocytosis Patient is registered clozaril [facility]S Follow up on labs Will monitor closely Pt was educated about risk/benefits and alternatives of medications, coping strategies (safety plan, suicide prevention), relapse prevention, importance of follow up with psychiatrist and therapist, stay away from drugs/alcohol/smoking Estimated Date of D/C: 10/27/18
--- NOTE | 2018-10-23 17:10 | PN ---
DATE: 10/23/2018 REASON FOR CONSULTATION AND FOLLOWUP: Preop evaluation, risk stratification for second round of ECT, cardiac evaluation, risk stratification. SUBJECTIVE: The patient denies any chest pain, shortness of breath, or any palpitation. PHYSICAL EXAMINATION: GENERAL: Not in apparent distress. VITAL SIGNS: Temperature afebrile, heart rate 100, and blood pressure 105/75. HEENT: PERRLA. Extraocular muscles are intact. NECK: Supple. No carotid bruits. No thyromegaly. CHEST: Clear to auscultation. HEART: S1 and S2 regular. ABDOMEN: Soft. EXTREMITIES: Clubbing and cyanosis negative. LABORATORY DATA: Blood workup as follows: WBC 3.6, hemoglobin 10, hematocrit 31.6, and platelet count 274. Chemistry shows sodium 141, potassium 4, chloride 112, carbon dioxide 36, anion gap of 7, BUN 14, and creatinine 0.8. IMPRESSION: Protein-calorie malnutrition, mild to moderate, was not present on admission. A 48-year-old female admitted with schizoaffective disorder, status post ECT twice, history of protein calorie malnutrition, started on supplement Glucerna. The patient is stable status post ECT. Continue metoprolol 25 p.o. b.i.d. We will sign off and glad to follow p.r.n. Thank you Dr. Ross for providing us the opportunity in taking care of the patient, Yomaira Will. We will be glad to follow p.r.n. Jasmine Lloyd MD
[2018-10-24] MEDS: Levothyroxine 100 MCG TAB PO SCH (06:36)
[2018-10-24] MEDS: Pantoprazole 40 mg EC Tab PO SCH (06:36)
[2018-10-24] MEDS: Bacitracin Ointment 30 GM TUBE TOP SCH ×2 (08:01→16:51)
[2018-10-24] MEDS: Magnesium Oxide 400 mg Tab UD PO SCH ×2 (08:06→16:54)
--- NOTE | 2018-10-24 15:09 | CP.PCM.PN ---
Subjective - Date & Time of Evaluation Date of Evaluation: 10/23/18 Time of Evaluation: 09:00 - Subjective Subjective: Comfortable, no fevers, no dysuria, no nausea. Objective - Vital Signs/Intake and Output Vital Signs (last 24 hours): Temp Pulse Resp BP Pulse Ox 98 F 102 H 14 104/66 95 10/22/18 11:55 10/22/18 11:55 10/22/18 11:55 10/22/18 11:55 10/22/18 11:55 - Medications Medications: Current Medications Acetaminophen (Tylenol 325mg Tab) 650 mg PO Q4 PRN PRN Reason: Pain, moderate (4-7) Last Admin: 10/21/18 16:02 Dose: 650 mg Al Hydrox/Mg Hydrox/Simethicone (Maalox Plus 30 Ml) 30 ml PO DAILY PRN PRN Reason: Upset Stomach Alprazolam (Xanax) 0.25 mg PO HS DAT; Protocol Last Admin: 10/21/18 21:05 Dose: 0.25 mg Alprazolam (Xanax) 0.25 mg PO BID PRN; Protocol PRN Reason: anxiety/agitation Stop: 10/23/18 09:16 Amoxicillin/Clavulanate Potassium (Augmentin 875 Mg-125 Mg Tab) 1 tab PO Q12 [facility]; Protocol Last Admin: 10/22/18 06:06 Dose: 1 tab Bacitracin (Bacitracin) 1 gm TOP BID [facility] Last Admin: 10/21/18 19:07 Dose: Not Given Chlorpromazine (Thorazine) 50 mg IM Q6H PRN; Protocol PRN Reason: Agitation Last Admin: 10/17/18 23:40 Dose: 50 mg Chlorpromazine (Thorazine) 50 mg PO Q6H PRN; Protocol PRN Reason: psychosis/agitation Last Admin: 10/19/18 23:59 Dose: 50 mg Clozapine (Clozaril) 200 mg PO HS [facility]; Protocol Last Admin: 10/21/18 21:06 Dose: 200 mg Clozapine (Clozaril) 100 mg PO DAILY [facility]; Protocol Fentanyl (Fentanyl) 25 mcg IV Q5M PRN PRN Reason: Pain, moderate (4-7) Fluoxetine HCl (Prozac) 20 mg PO DAILY [facility] Folic Acid (Folic Acid) 1 mg PO DAILY [facility] Last Admin: 10/21/18 14:38 Dose: 1 mg Home Med (Home Med) 0.8 unit SC Q2W [facility] Last Admin: 10/14/18 11:49 Dose: 0.8 unit Lactated Ringer's (Lactated Ringer's) 1,000 mls @ 75 mls/hr IV .[id number] [facility] Stop: 10/22/18 13:01 Levothyroxine Sodium (Synthroid) 100 mcg PO 0600 [facility] Last Admin: 10/22/18 06:07 Dose: 100 mcg Magnesium Hydroxide (Milk Of Magnesia) 30 ml PO DAILY PRN PRN Reason: Constipation Magnesium Oxide (Mag-Ox) 400 mg PO BID [facility] Last Admin: 10/22/18 10:36 Dose: Not Given Metoprolol Tartrate (Lopressor) 25 mg PO BRKDIN [facility] Last Admin: 10/22/18 10:35 Dose: Not Given Ondansetron HCl (Zofran Inj) 4 mg IVP ONCE PRN PRN Reason: Nausea/Vomiting Pantoprazole Sodium (Protonix Ec Tab) 40 mg PO 0600 [facility] Last Admin: 10/22/18 06:07 Dose: 40 mg Saliva Substitute (Saliva Substitute) 0 ml PO TID PRN PRN Reason: Dry mouth Last Admin: 10/04/18 13:41 Dose: 1 ml Zolpidem Tartrate (Ambien) 5 mg PO HS PRN; Protocol PRN Reason: Insomnia Last Admin: 10/21/18 21:33 Dose: 5 mg - Labs Labs: 10/21/18 07:30 10/21/18 07:30 - Constitutional Appears: Chronically Ill - Head Exam Head Exam: NORMAL INSPECTION - Respiratory Exam Respiratory Exam: Decreased Breath Sounds - Cardiovascular Exam Cardiovascular Exam: +S1, +S2 - GI/Abdominal Exam GI & Abdominal Exam: Soft. absent: Tenderness Assessment and Plan - Assessment and Plan (Free Text) Plan: Assessment new onset systemic inflammatory response syndrome, with fevers, S/P treatment for UTI history asymptomatic bacteriuria with E. faecalis HTN breast cancer S/P radiation therapy psychosis dyslipidemia Plan completed course of Augmentin will continue to monitor clinically off antibiotics discussed with Dr. Leon
--- NOTE | 2018-10-24 15:29 | PCM.PYCHPN ---
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 Medical Problems: pt was dehydrated, but doing better dysphagia is better UTI, patient completed course of antibiotics urine analysis showed leukocyte esterase again on 10/01/2018, Infectious disease wants to observe patient without antibiotics, discussed with 10/10/18 neurology consult was called, pt is not improving for the past 3weeks CT scan at the time of admission 09/14/18 was WNL. Discussed with Dr. Deleon 10/14/2018: MRI of the brain was not able to tolerate, d/c by neurology discussed with 10/17/18, patient is cleared for ECT. EEG was WNL Diagnostic Results: 09/14/18 09:10 09/15/18 08:00 Lab Results 09/15/18 08:00: Sodium 140, Potassium 4.0, Chloride 102, Carbon Dioxide 28, Anion Gap 14, BUN 15, Creatinine 1.2, Est GFR ( Amer) 58, Est GFR (Non-Af Amer) 48, Random Glucose 97, Calcium 9.8 09/14/18 17:40: Urine Color Yellow, Urine Appearance Sl cloudy, Urine pH 6.0, Ur Specific [place] 1.010, Urine Protein Negative, Urine Glucose (UA) Negative, Urine Ketones Negative, Urine Blood Small H, Urine Nitrate Positive H, Urine Bilirubin Negative, Urine Urobilinogen 0.2, Ur Leukocyte Esterase Small H, Urine RBC 5 - 10, Urine WBC 20 - 25, Ur Epithelial Cells 10 - 12, Urine Bacteria Many 09/14/18 09:10: RPR Nonreactive 09/14/18 09:10: TSH 3rd Generation 5.59 H 09/14/18 09:10: Sodium 140, Potassium 4.0, Chloride 104, Carbon Dioxide 21, Anion Gap 18, BUN 15, Creatinine 1.6 H, Est GFR ( Amer) 42, Est GFR (Non- Af Amer) 35, Random Glucose 85, Calcium 10.0, Phosphorus 2.8, Magnesium 1.6 L, Total Bilirubin 0.5, AST 89 H D, ALT 57 H, Alkaline Phosphatase 88, Total Protein 8.0, Albumin 4.4, Globulin 3.6, Albumin/Globulin Ratio 1.2, Triglycerides 102, Cholesterol 234 H, LDL Cholesterol Direct 155 H, HDL Cholesterol 60 09/14/18 09:10: WBC 4.7 D, RBC 4.39, Hgb 12.4, Hct 37.8, MCV 86.1, MCH 28.2, MCHC 32.8, RDW 16.4 H, Plt Count 360, MPV 9.4, Gran % 50.8, Lymph % (Auto) 34.7, [place] % (Auto) 13.4 H, Eos % (Auto) 0.9 L, Baso % (Auto) 0.2, Gran # 2.39, Lymph # (Auto) 1.6, [place] # (Auto) 0.6, Eos # (Auto) 0.0, Baso # (Auto) 0.01 Microbiology 09/14/18 17:40 Urine Urine Culture - Preliminary Gram Negative [facility] Laboratory Results - last 24 hr 09/19/18 09:55 WBC 4.5 RBC 4.35 Hgb 12.2 Hct 38.3 MCV 88.0 MCH 28.0 MCHC 31.9 RDW 16.6 H Plt Count 318 MPV 9.6 Gran % 54.3 Lymph % (Auto) 30.0 [place] % (Auto) 14.8 H Eos % (Auto) 0.7 L Baso % (Auto) 0.2 Gran # 2.43 Lymph # (Auto) 1.3 [place] # (Auto) 0.7 H Eos # (Auto) 0.0 Baso # (Auto) 0.01 Abnormal Lab Results 09/22/18 09/22/18 07:30 07:30 WBC 3.4 L D RBC 4.34 Hgb 12.2 Hct 37.4 MCV 86.2 MCH 28.1 MCHC 32.6 RDW 16.5 H Plt Count 373 MPV 9.7 Sodium 141 Potassium 5.0 Chloride 107 Carbon Dioxide 25 Anion Gap 14 BUN 18 Creatinine 1.5 H Est GFR ( Amer) 45 Est GFR (Non-Af Amer) 37 Random Glucose 98 Calcium 10.2 Laboratory Results - last 72 hr 09/25/18 14:47 POC Glucose (mg/dL) 94 Vital Signs Temp Pulse Resp BP Pulse Ox 09/27/18 16:00 52 L 108/81 09/27/18 08:40 84 122/67 09/27/18 07:00 97.3 F L 84 18 122/67 09/26/18 08:04 121 H 136/114 H 09/26/18 07:26 98.2 F 54 L 22 136/114 H 09/25/18 09:08 80 124/70 09/24/18 16:00 93 H 112/74 09/24/18 09:17 97/50 L 09/24/18 07:20 97.1 F L 82 16 97/50 L 09/24/18 07:18 97.1 F L 82 20 97/50 L 09/23/18 16:00 86 110/67 09/23/18 06:49 97.7 F 77 20 114/69 09/22/18 16:00 83 103/57 L 09/22/18 12:26 97 H 110/72 09/21/18 10:21 90 116/71 09/21/18 10:15 98.4 F 90 20 116/71 99 09/20/18 15:45 100 H 95/70 L 09/20/18 10:04 93 H 146/96 H 09/20/18 06:48 98.1 F 79 16 98/60 L 09/19/18 16:00 60 116/88 09/19/18 07:28 97.3 F L 91 H 20 115/75 09/17/18 15:00 73 H 128/106 H 09/17/18 09:30 68 116/62 09/17/18 07:25 97.1 F L 80 18 92/58 L 09/16/18 16:00 102 H 120/81 09/16/18 09:47 104 H 124/99 H 09/16/18 07:17 98.0 F 87 18 98/59 L 09/15/18 09:07 103 H 106/70 09/15/18 07:00 97.8 F 105 H 19 86/60 L 09/14/18 16:28 90 139/118 H 09/14/18 07:00 97.9 F 60 17 115/72 09/13/18 08:30 114 H 20 129/100 H 09/13/18 07:00 98.5 F 55 L 22 169/114 H 09/13/18 06:50 55 L 169/114 H 09/12/18 16:11 97.2 F L 80 20 114/64 09/12/18 15:39 20 Abnormal Lab Results 09/29/18 19:14 WBC 4.8 RBC 4.34 Hgb 12.3 Hct 38.4 MCV 88.5 MCH 28.3 MCHC 32.0 RDW 16.7 H Plt Count 261 MPV 10.7 Gran % 39.9 L Lymph % (Auto) 42.0 H [place] % (Auto) 15.8 H Eos % (Auto) 1.9 Baso % (Auto) 0.4 Gran # 1.90 Lymph # (Auto) 2.0 [place] # (Auto) 0.8 H Eos # (Auto) 0.1 Baso # (Auto) 0.02 Abnormal Lab Results 10/01/18 10/01/18 10/01/18 07:50 07:50 07:50 WBC 3.2 L D RBC 4.39 Hgb 12.2 Hct 38.8 MCV 88.4 MCH 27.8 MCHC 31.4 RDW 16.7 H Plt Count 280 MPV 9.9 Sodium 141 Potassium 4.2 Chloride 108 H Carbon Dioxide 28 Anion Gap 10 BUN 16 Creatinine 1.1 Est GFR ( Amer) > 60 Est GFR (Non-Af Amer) 53 Random Glucose 98 Calcium 9.5 Thyroxine (T4) 8.4 TSH 3rd Generation 1.86 Cortisol AM Sample 10/01/18 07:50 WBC RBC Hgb Hct MCV MCH MCHC RDW Plt Count MPV Sodium Potassium Chloride Carbon Dioxide Anion Gap BUN Creatinine Est GFR ( Amer) Est GFR (Non-Af Amer) Random Glucose Calcium Thyroxine (T4) TSH 3rd Generation Cortisol AM Sample 19.5 Temp Pulse Resp BP Pulse Ox 97.9 F 113 H 20 105/72 99 10/03/18 07:17 10/03/18 09:46 10/03/18 07:17 10/03/18 09:46 09/21/18 10:15 Microbiology 10/06/18 12:17 Urine Culture - Final Urine Enterococcus Faecalis Temp Pulse Resp BP Pulse Ox 97.9 F 102 H 22 143/120 H 99 10/09/18 07:36 10/09/18 08:25 10/09/18 07:36 10/09/18 08:25 09/21/18 10:15 Laboratory Results - last 24 hr 10/09/18 09:30 WBC 5.4 D RBC 4.09 Hgb 11.3 L Hct 36.0 MCV 88.0 MCH 27.6 MCHC 31.4 RDW 16.8 H Plt Count 337 MPV 9.8 Gran % 63.5 Lymph % (Auto) 22.0 [place] % (Auto) 12.4 H Eos % (Auto) 1.9 Baso % (Auto) 0.2 Gran # 3.43 Lymph # (Auto) 1.2 [place] # (Auto) 0.7 H Eos # (Auto) 0.1 Baso # (Auto) 0.01 No signs of a granulocytosis Temp Pulse Resp BP Pulse Ox 97.9 F 63 20 128/91 H 99 10/10/18 07:31 10/10/18 09:43 10/10/18 07:31 10/10/18 09:43 09/21/18 10:15 Temp Pulse Resp BP Pulse Ox 97.9 F 88 16 73/49 L 99 10/14/18 06:59 10/14/18 10:09 10/14/18 06:59 10/14/18 10:09 09/21/18 10:15 Laboratory Results - last 24 hr 10/16/18 10/16/18 08:15 08:15 WBC 3.6 L D RBC 4.19 Hgb 11.7 L Hct 36.7 MCV 87.6 MCH 27.9 MCHC 31.9 RDW 16.9 H Plt Count 311 MPV 9.5 Gran % 54.0 Lymph % (Auto) 27.4 [place] % (Auto) 13.6 H Eos % (Auto) 4.7 Baso % (Auto) 0.3 Gran # 1.95 Lymph # (Auto) 1.0 L [place] # (Auto) 0.5 Eos # (Auto) 0.2 Baso # (Auto) 0.01 Sodium 143 Potassium 3.4 L Chloride 105 Carbon Dioxide 31 Anion Gap 11 BUN 17 Creatinine 0.9 Est GFR ( Amer) > 60 Est GFR (Non-Af Amer) > 60 Random Glucose 129 H Calcium 8.9 Phosphorus 3.3 Magnesium 2.5 H Total Bilirubin 0.3 AST 52 H ALT 46 Alkaline Phosphatase 87 Total Protein 7.9 Albumin 3.7 Globulin 4.2 Albumin/Globulin Ratio 0.9 L Triglycerides 129 Cholesterol 184 LDL Cholesterol Direct 114 HDL Cholesterol 41 Temp Pulse Resp BP Pulse Ox 98.0 F 73 20 113/90 99 10/16/18 06:56 10/16/18 06:56 10/16/18 06:56 10/16/18 06:56 09/21/18 10:15 Temp Pulse Resp BP Pulse Ox 98.4 F 99 H 18 113/68 96 10/17/18 14:15 10/17/18 14:15 10/17/18 14:15 10/17/18 14:15 10/17/18 14:15 Laboratory Results - last 24 hr 10/17/18 09:37 Urine HCG, Qual Negative Temp Pulse Resp BP Pulse Ox 98.2 F 100 H 16 135/76 100 10/20/18 11:21 10/20/18 11:21 10/20/18 11:21 10/20/18 11:21 10/20/18 11:21 Abnormal Lab Results 10/19/18 08:00 Procalcitonin 0.09 L Temp Pulse Resp BP Pulse Ox 98 F 102 H 14 104/66 95 10/22/18 11:55 10/22/18 11:55 10/22/18 11:55 10/22/18 11:55 10/22/18 11:55 DSM 5 Symptoms Update: Patient is a 48-year-old [place] female with a psychiatric history of Schizoaffective disorder, multiple prior psychiatric admissions both in [place] and the [place]~ most recently hospitalized at [facility] x6 months ago, who was transferred from the medical floor after being treated from 09/10/18-09/12/18 for dysphagia. Pt was presented with depression, disorganization, paranoia, moravian preoccupation as well as bizarre behavior. On the medical floor patient required 1:1 because she was caught drinking her urine out of the toilet. Patient was trying to punish herself because she didn't deserve to live. Patient attends outpatient psychiatric treatment of [facility]. Her most recent follow up was on September 08, 2018. Patient has been compliant with Abilify 10 mg daily, Prozac 10 mg daily Seroquel 100 mg BID as well as Abilifclyde Maintenna last injected September 08, 2018. pt was seen and examined today at the treatment team room, this telegraphic typewriter installer utilized translation system [employer] for interpretation,#[id number], patient presented to be restless, was constantly moving, but overall patient presented better to compare with the last week. Patient at times was answering further questions incoherently, but no agitation, no aggression, patient denied hearing voices, last time was last week, patient was not able to stay focused and concentrate on the questions this telegraphic typewriter installer asked. Overall patient appears to be comfortable but disorganized. Patient is off one-to-one, patient is more visible in the unit, eats with good appetite. When this telegraphic typewriter installer asked about psychotic symptoms, patient appears to be guarded, did not want to discuss, last week patient was complaining that she is afraid of "animal like looking man". as per staff pt still has episodes of confusion, psychosis, but redirectable, boyle d a good night sleep. BL ECT treatment #1 10/17/18, tolerated that well BL ECT treatment #2 10/20/18 tolerated it well BL ECT treatment #3 10/21/18 tolerated it well, but was restless after the procedure, pt needed to have 4xtreatments in order to have productive seizures. BL ECT treatment #4 10/22/18, pt needed to have 3treatments in order to have therapeutic seizures. BL ECT treatment #5 10/23/18, will start with the previous parameters when pt had productive seizures. 150% 0.3ms BL, 50Hz 8sec, 192mC, pt had about 8sec of motor seizures which was considered to be 30%therapeutic by MECTA analysis. this telegraphic typewriter installer gave another tx 150% 0.5ms BL, 50Hz 8sec, 320mC, pt had about 20sec of motor seizures which was considered to be 66%likely adequate therapeutic seizures by MECTA analysis. pt tolerated treatment well, treatments were spread with the interval of 25- 30sec. Discussed with 10/17/2018, EEG within normal limits, no need for patient to have MRI, patient was cleared for ECT. pt was seen by tapeman who cleared pt for ECT pt was seen by PMD , pt was cleared for ECT GI team was called for f/u, diet was advanced discussed with ID 10/10/18, wants to observe patient with no antibiotics. Hem/onc was involved because patient has history of breast cancer. 10/15/[address], pt and her (next of kin) both agreed for ECT procedure, see 10/15/18 note for more detailed information. No drooling observed/. clozaril was started 10/01/18, pt is currently on tapering dose of clozaril, with the plan to wean it off because patient was not improving on Clozaril. Diagnostic Results: Schizoaffective Disorder Medication Change: Yes (Clozaril decreased) Medical Record Reviewed: Yes Consults ordered or reviewed: patient was seen by medical team as well as nephrology team see notes for more detailed information pt was seen by Hem/Onc pt was seen by ID team Neurology involved, discussed 10/14/2018 GI involved cardiology involved Mental Status Examination - Cognitive Function Orientation: Place Memory: Impaired Attention: Poor (some improvement) Concentration: Poor (some improvement) Association: Loose Fund of Knowledge: Poor - Mood Mood: Depressed - Affect Affect: Constricted (calmer today) - Speech Speech: Appropriate - Formal Thought Process Formal Thought Process: Hallucinations (denied today), Delusions, Paranoia (pt is less paranoid), Loosening of associations - Suicidal Ideation Suicidal Ideation: No - Homicidal Ideation Homicidal Ideation: No Goal/Treatment Plan - Goal/Treatment Plan Need for Continued Stay: Remain at risks for inpatient hospitalization, Severe depression anxiety, Discharge may exacerbated symptoms, Severe functional impairment Progress Toward Problem(s) and Goals/Treatment Plan: group, milieu and supportive tx (as tolerated) Clozaril 50mg po daily and 150mg po hs, will taper it down Prozac 10 mg daily for depression and anxiety, plan to taper that down xanax 0.25mg po bid only PRN and hs for restlessness seroquel discontinued 10/09/2018 ambien only as needed Twila Brownena was provided to patient on 09/08/18, no plan to resume Thorazine 50mg po and IM prn ECT #1 10/17/18, pt had about 15 sec of seizures ECT #2 10/20/18, pt had 17 seconds of seizures ECT #3 10/21/18, pt had about 37seconds of seizures ECT #4 10/22/18, pt had 23 seconds of motor/eeg seizures ECT #5 10/23/18 pt had about 20 seconds of motor/EEG seizures Most likely patient will need to have about 3 more ECT treatments neurology involved MRI, pt was not able to tolerate EEG, WNL ID and oncology involved GI follow up hem onc involved tapeman involved consultation for discharge plan and social issues Family involvement, pt wanted her to participate in her care family meeting took place 09/19/[address] 10/15/18 CBC with /6/2018 no signs of a granulocytosis CBC with differential 10/16/18 no signs of agranulocytosis Patient is registered clozaril REMS Follow up on labs Will monitor closely Pt was educated about risk/benefits and alternatives of medications, coping strategies (safety plan, suicide prevention), relapse prevention, importance of follow up with psychiatrist and therapist, stay away from drugs/alcohol/smoking Estimated Date of D/C: 10/30/18
[2018-10-25] MEDS: Pantoprazole 40 mg EC Tab PO SCH (06:41)
[2018-10-25] MEDS: Levothyroxine 100 MCG TAB PO SCH (06:41)
[2018-10-25] MEDS: Bacitracin Ointment 30 GM TUBE TOP SCH ×2 (08:41→16:14)
[2018-10-25] MEDS: Magnesium Oxide 400 mg Tab UD PO SCH ×2 (08:44→16:08)
--- NOTE | 2018-10-25 09:16 | PCM.PYCHPN ---
Psychiatric Progress Note - Psychiatric Progress Note Patient seen today, length of contact: 30 minutes Problems Identified/Issues Discussed: PROGRESS NOTE 10/25/18 I reviewed recent notes, patient is known to this provider from my follow up on the medical floor prior to her transfer to the psychiatric unit as well as multiple interviews during this psychiatric admission. Patient has been demonstrating improvement in impulsivity, paranoia and disorganized behaviors since ECT was started last week. She is more compliant with medications and staff requests. Frequency and intensity of her outbursts are decreasing. She is calmer, quieter and more oriented though overall her thought process remains disorganized and in general patient appears less emotionally distressed. Diagnostic Results: Schizoaffective Disorder Medication Change: Yes (Clozaril decreased) Medical Record Reviewed: Yes Mental Status Examination - Cognitive Function Orientation: Place Memory: Impaired Attention: Poor (some improvement) Concentration: Poor (some improvement) Association: Loose Fund of Knowledge: Poor - Mood Mood: Depressed - Affect Affect: Constricted (calmer today) - Speech Speech: Appropriate - Formal Thought Process Formal Thought Process: Hallucinations (denied today), Delusions, Paranoia (pt is less paranoid), Loosening of associations - Suicidal Ideation Suicidal Ideation: No - Homicidal Ideation Homicidal Ideation: No Goal/Treatment Plan - Goal/Treatment Plan Need for Continued Stay: Remain at risks for inpatient hospitalization, Severe depression anxiety, Discharge may exacerbated symptoms, Severe functional impairment Progress Toward Problem(s) and Goals/Treatment Plan: * group, milieu and supportive tx (as tolerated) * Patient is s/p ECT treatment #1 on 10/17/18, ECT treatment #2 10/20/18, ECT treatment #3 10/21/18, ECT treatment #4 10/22/18, ECT treatment #5 10/23/18, * c/w clozaril taper: ~Clozaril dose currently at: 50 mg po AM and 150 mg HS ~will monitor HR and WBC closely * Twila Hartman was provided to patient on 09/08/18 will not continue. * Prozac 10 mg daily for depression and anxiety * Ambien 5 mg po HS prn: insomnia * thorazine prns for agitation * Vitals reviewed and noted below: Selected Entries 10/24/18 10/24/18 10/24/18 06:00 08:02 16:23 Temperature 98.9 F Pulse Rate 93 H 105 H Blood Pressure 89/57 L 89/57 L 97/62 L O2 Sat by Pulse 18 L Oximetry * Please refer to results from patient's physical exam/ROS/labs in progress notes from her recent admission to the medical floor from 09/10/18-09/12/18, as well as ER ROS and physical exam on 09/09/18 * No new weekend lab results thus far Estimated Date of D/C: 10/30/18
--- NOTE | 2018-10-25 14:52 | PN ---
DATE: 10/25/2018 SUBJECTIVE: The patient is in bed, in no acute distress, nontoxic. PHYSICAL EXAMINATION: VITAL SIGNS: She was seen early this morning with a temperature of 99, blood pressure is 89/50, respiratory rate of 20. Examination of HEENT is unremarkable. NECK: Supple. LUNGS: Have decreased breath sounds. HEART: Normal S1 and S2. ABDOMEN: Soft, nontender. LABORATORY EXAMINATION: Reveals a white count of 3.6, hemoglobin of 10. Chemistries reveal a BUN of 14, creatinine of 0.8. Serology is negative. Microbiology reveals the urine cultures are noted. The blood cultures negative. The repeat urine cultures are negative. Review of orders reveals the patient to be off antibiotics. ASSESSMENT AND PLAN: A 48-year-old with a new onset of systemic inflammatory response syndrome with fevers with asymptomatic bacteriuria with Enterococcus faecalis and the patient with psychosis. She is to complete a course of Augmentin, currently off antibiotics. The patient is at risk for developing nosocomial infections. Scotty James MD
[2018-10-26] MEDS: Levothyroxine 100 MCG TAB PO SCH (07:42)
[2018-10-26] MEDS: Bacitracin Ointment 30 GM TUBE TOP SCH ×2 (08:41→16:50)
[2018-10-26] MEDS: Magnesium Oxide 400 mg Tab UD PO SCH ×2 (08:41→17:51)
--- NOTE | 2018-10-26 08:54 | PCM.PYCHPN ---
Psychiatric Progress Note - Psychiatric Progress Note Patient seen today, length of contact: 30 minutes Problems Identified/Issues Discussed: PROGRESS NOTE 10/26/18 I reviewed recent notes, patient is known to this provider from my follow up on the medical floor prior to her transfer to the psychiatric unit as well as multiple interviews during this extended psychiatric admission. Patient has been demonstrating improvement in impulsivity, paranoia and disor ganized behaviors since ECT was started last week, even with concurrent clozaril taper. She is currently s/p 5 ECT treatments. Patient is more compliant with medications and staff requests. Frequency, intensity and randomness of her outbursts are decreasing. She is calmer, quieter and a little more oriented though overall her thought process remains disorganized. Nonetheless, patient generally appears less frenetic and emotionally distressed. Her insight and judgment are improving. Diagnostic Results: Schizoaffective Disorder Medication Change: Yes (Clozaril decreased) Medical Record Reviewed: Yes Mental Status Examination - Cognitive Function Orientation: Place Memory: Impaired Attention: Poor (some improvement) Concentration: Poor (some improvement) Association: Loose Fund of Knowledge: Poor - Mood Mood: Depressed - Affect Affect: Constricted (calmer today) - Speech Speech: Appropriate - Formal Thought Process Formal Thought Process: Hallucinations (denied today), Delusions, Paranoia (pt is less paranoid), Loosening of associations - Suicidal Ideation Suicidal Ideation: No - Homicidal Ideation Homicidal Ideation: No Goal/Treatment Plan - Goal/Treatment Plan Need for Continued Stay: Remain at risks for inpatient hospitalization, Severe depression anxiety, Discharge may exacerbated symptoms, Severe functional impairment Progress Toward Problem(s) and Goals/Treatment Plan: * group, milieu and supportive tx (as tolerated) * Patient is s/p ECT treatment #1 on 10/17/18, ECT treatment #2 10/20/18, ECT treatment #3 10/21/18, ECT treatment #4 10/22/18, ECT treatment #5 10/23/18, * c/w clozaril taper: ~Clozaril dose decreased to 25 mg po AM and 150 mg HS on 10/26/18 ~will monitor HR and WBC closely * Twila Hartman was provided to patient on 09/08/18 will not continue. * Prozac 10 mg daily for depression and anxiety * Ambien 5 mg po HS prn: insomnia * thorazine prns for agitation * * Appreciate f/u by Dr. James on 10/25/18~patient is s/p course of augmentin. She is still at risk for nosocomial infections. * Vitals reviewed and noted below: Selected Entries 10/26/18 05:44 Temperature 98.6 F Pulse Rate 90 Respiratory 20 Rate Blood Pressure 97/59 L * Please refer to results from patient's physical exam/ROS/labs in progress notes from her recent admission to the medical floor from 09/10/18-09/12/18, as well as ER ROS and physical exam on 09/09/18 * No new weekend lab results thus far Estimated Date of D/C: 10/30/18
[2018-10-26] MEDS: Pantoprazole 40 mg EC Tab PO SCH (12:34)
--- NOTE | 2018-10-26 14:36 | PN ---
DATE: 10/26/2018 SUBJECTIVE: The patient is seen earlier this morning. No new complaints. No uneventful night. No fever and chills. PHYSICAL EXAMINATION: VITAL SIGNS: Temperature is 99, blood pressure is 100/60, respiratory rate of 40 and heart rate of 100. HEENT: Unremarkable. NECK: Supple. LUNGS: Have decreased breath sounds. HEART: Normal S1 and S2. ABDOMEN: Soft, nontender. LABORATORY EXAMINATION: Reveals a white count of 3.6, hemoglobin of 10, platelets of 274. Chemistries reveal a BUN of 14, creatinine of 0.8, procalcitonin 0.9. Microbiology is reviewed. ASSESSMENT AND PLAN: A 48-year-old female with new onset of systemic inflammatory response syndrome with asymptomatic bacteriuria with Enterococcus faecalis and the patient with psychosis. Currently status post treatment for Augmentin, off of antibiotics. Afebrile. The patient is at risk for developing nosocomial infections. Scotty James MD
--- NOTE | 2018-10-26 19:34 | PN ---
DATE: 10/25/2018 SUBJECTIVE: She is psych floor, 48-year-old female. The patient is clinically stable. She is more oriented, more alert, more focused. She feels like regretting her previous behavior on admissions, but she seems doing better clinically and mental rawls. She has no physical complaints like no chest pain, no short of breath. She is eating well, moves her bowels, walking around. PHYSICAL EXAMINATION VITAL SIGNS: Temperature is 98.6, heart rate 100, blood pressure 111/59, respirations 20. HEAD AND NECK: Normal. No JVD. No thyromegaly. CHEST: Clear bilateral. CARDIAC: First sound and second sound normal. ABDOMEN: Soft, obese, and nontender. EXTREMITIES: No edema. NEUROLOGICAL: Normal. LABORATORY DATA: Sodium 141, potassium 4, chloride 112, bicarb 27, BUN 14, creatinine is 0.8. CBC; white count 3.6, hemoglobin 10, hematocrit 31.6, and platelets 274. IMPRESSION AND PLAN: 1. Schizoaffective disorder, seems clinically better. Continue ECT as per Dr. Leon. 2. History of renal insufficiency, seems doing well. 3. Hypothyroidism. 4. Breast carcinoma. 5. Esophageal dysphagia. The patient seems doing well. Continue Ambien, Clozaril 150 at bedtime and 25 mg p.o. daily, folic acid 1 mg daily, metoprolol 25 b.i.d., Maalox, magnesium oxide b.i.d., milk of magnesia, Protonix 40 once a day, Prozac 10 once a day, Synthroid 100 once a day, Thorazine 50 p.o. every 6 hours, Tylenol and Zofran p.r.n. Igor Ca MD
[2018-10-27] MEDS: Pantoprazole 40 mg EC Tab PO SCH (06:20)
[2018-10-27] MEDS: Levothyroxine 100 MCG TAB PO SCH (06:20)
[2018-10-27] MEDS ORDERED: Lactated Ringer's 1,000 ML IV SCH (10:00)
[2018-10-27] MEDS ORDERED: Propofol 10 mg/ml Inj (20 ML) ONE (10:46)
[2018-10-27] MEDS ORDERED: Succinylcholine 200 mg/10 ml Inj IV ONE (10:46)
[2018-10-27] MEDS: Bacitracin Ointment 30 GM TUBE TOP SCH ×2 (11:00→16:09)
--- NOTE | 2018-10-27 12:13 | PCM.PYCHPN ---
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 Medical Problems: pt was dehydrated, but doing better dysphagia is better UTI, patient completed course of antibiotics urine analysis showed leukocyte esterase again on 10/01/2018, Infectious disease wants to observe patient without antibiotics, discussed with 10/10/18 neurology consult was called, pt is not improving for the past 3weeks CT scan at the time of admission 09/14/18 was WNL. Discussed with Dr. Deleon 10/14/2018: MRI of the brain was not able to tolerate, d/c by neurology discussed with 10/17/18, patient is cleared for ECT. EEG was WNL Diagnostic Results: 09/14/18 09:10 09/15/18 08:00 Lab Results 09/15/18 08:00: Sodium 140, Potassium 4.0, Chloride 102, Carbon Dioxide 28, Anion Gap 14, BUN 15, Creatinine 1.2, Est GFR ( Amer) 58, Est GFR (Non-Af Amer) 48, Random Glucose 97, Calcium 9.8 09/14/18 17:40: Urine Color Yellow, Urine Appearance Sl cloudy, Urine pH 6.0, Ur Specific Harvey 1.010, Urine Protein Negative, Urine Glucose (UA) Negative, Urine Ketones Negative, Urine Blood Small H, Urine Nitrate Positive H, Urine Bilirubin Negative, Urine Urobilinogen 0.2, Ur Leukocyte Esterase Small H, Urine RBC 5 - 10, Urine WBC 20 - 25, Ur Epithelial Cells 10 - 12, Urine Bacteria Many 09/14/18 09:10: RPR Nonreactive 09/14/18 09:10: TSH 3rd Generation 5.59 H 09/14/18 09:10: Sodium 140, Potassium 4.0, Chloride 104, Carbon Dioxide 21, Anion Gap 18, BUN 15, Creatinine 1.6 H, Est GFR ( Amer) 42, Est GFR (Non- Af Amer) 35, Random Glucose 85, Calcium 10.0, Phosphorus 2.8, Magnesium 1.6 L, Total Bilirubin 0.5, AST 89 H D, ALT 57 H, Alkaline Phosphatase 88, Total Protein 8.0, Albumin 4.4, Globulin 3.6, Albumin/Globulin Ratio 1.2, Triglycerides 102, Cholesterol 234 H, LDL Cholesterol Direct 155 H, HDL Cholesterol 60 09/14/18 09:10: WBC 4.7 D, RBC 4.39, Hgb 12.4, Hct 37.8, MCV 86.1, MCH 28.2, MCHC 32.8, RDW 16.4 H, Plt Count 360, MPV 9.4, Gran % 50.8, Lymph % (Auto) 34.7, [place] % (Auto) 13.4 H, Eos % (Auto) 0.9 L, Baso % (Auto) 0.2, Gran # 2.39, Lymph # (Auto) 1.6, [place] # (Auto) 0.6, Eos # (Auto) 0.0, Baso # (Auto) 0.01 Microbiology 09/14/18 17:40 Urine Urine Culture - Preliminary Gram Negative [facility] Laboratory Results - last 24 hr 09/19/18 09:55 WBC 4.5 RBC 4.35 Hgb 12.2 Hct 38.3 MCV 88.0 MCH 28.0 MCHC 31.9 RDW 16.6 H Plt Count 318 MPV 9.6 Gran % 54.3 Lymph % (Auto) 30.0 [place] % (Auto) 14.8 H Eos % (Auto) 0.7 L Baso % (Auto) 0.2 Gran # 2.43 Lymph # (Auto) 1.3 [place] # (Auto) 0.7 H Eos # (Auto) 0.0 Baso # (Auto) 0.01 Abnormal Lab Results 09/22/18 09/22/18 07:30 07:30 WBC 3.4 L D RBC 4.34 Hgb 12.2 Hct 37.4 MCV 86.2 MCH 28.1 MCHC 32.6 RDW 16.5 H Plt Count 373 MPV 9.7 Sodium 141 Potassium 5.0 Chloride 107 Carbon Dioxide 25 Anion Gap 14 BUN 18 Creatinine 1.5 H Est GFR ( Amer) 45 Est GFR (Non-Af Amer) 37 Random Glucose 98 Calcium 10.2 Laboratory Results - last 72 hr 09/25/18 14:47 POC Glucose (mg/dL) 94 Vital Signs Temp Pulse Resp BP Pulse Ox 09/27/18 16:00 52 L 108/81 09/27/18 08:40 84 122/67 09/27/18 07:00 97.3 F L 84 18 122/67 09/26/18 08:04 121 H 136/114 H 09/26/18 07:26 98.2 F 54 L 22 136/114 H 09/25/18 09:08 80 124/70 09/24/18 16:00 93 H 112/74 09/24/18 09:17 97/50 L 09/24/18 07:20 97.1 F L 82 16 97/50 L 09/24/18 07:18 97.1 F L 82 20 97/50 L 09/23/18 16:00 86 110/67 09/23/18 06:49 97.7 F 77 20 114/69 09/22/18 16:00 83 103/57 L 09/22/18 12:26 97 H 110/72 09/21/18 10:21 90 116/71 09/21/18 10:15 98.4 F 90 20 116/71 99 09/20/18 15:45 100 H 95/70 L 09/20/18 10:04 93 H 146/96 H 09/20/18 06:48 98.1 F 79 16 98/60 L 09/19/18 16:00 60 116/88 09/19/18 07:28 97.3 F L 91 H 20 115/75 09/17/18 15:00 73 H 128/106 H 09/17/18 09:30 68 116/62 09/17/18 07:25 97.1 F L 80 18 92/58 L 09/16/18 16:00 102 H 120/81 09/16/18 09:47 104 H 124/99 H 09/16/18 07:17 98.0 F 87 18 98/59 L 09/15/18 09:07 103 H 106/70 09/15/18 07:00 97.8 F 105 H 19 86/60 L 09/14/18 16:28 90 139/118 H 09/14/18 07:00 97.9 F 60 17 115/72 11/18 08:30 114 H 20 129/100 H 09/13/18 07:00 98.5 F 55 L 22 169/114 H 09/13/18 06:50 55 L 169/114 H 09/12/18 16:11 97.2 F L 80 20 114/64 09/12/18 15:39 20 Abnormal Lab Results 09/29/18 19:14 WBC 4.8 RBC 4.34 Hgb 12.3 Hct 38.4 MCV 88.5 MCH 28.3 MCHC 32.0 RDW 16.7 H Plt Count 261 MPV 10.7 Gran % 39.9 L Lymph % (Auto) 42.0 H [place] % (Auto) 15.8 H Eos % (Auto) 1.9 Baso % (Auto) 0.4 Gran # 1.90 Lymph # (Auto) 2.0 [place] # (Auto) 0.8 H Eos # (Auto) 0.1 Baso # (Auto) 0.02 Abnormal Lab Results 10/01/18 10/01/18 10/01/18 07:50 07:50 07:50 WBC 3.2 L D RBC 4.39 Hgb 12.2 Hct 38.8 MCV 88.4 MCH 27.8 MCHC 31.4 RDW 16.7 H Plt Count 280 MPV 9.9 Sodium 141 Potassium 4.2 Chloride 108 H Carbon Dioxide 28 Anion Gap 10 BUN 16 Creatinine 1.1 Est GFR ( Amer) > 60 Est GFR (Non-Af Amer) 53 Random Glucose 98 Calcium 9.5 Thyroxine (T4) 8.4 TSH 3rd Generation 1.86 Cortisol AM Sample 10/01/18 07:50 WBC RBC Hgb Hct MCV MCH MCHC RDW Plt Count MPV Sodium Potassium Chloride Carbon Dioxide Anion Gap BUN Creatinine Est GFR ( Amer) Est GFR (Non-Af Amer) Random Glucose Calcium Thyroxine (T4) TSH 3rd Generation Cortisol AM Sample 19.5 Temp Pulse Resp BP Pulse Ox 97.9 F 113 H 20 105/72 99 10/03/18 07:17 10/03/18 09:46 10/03/18 07:17 10/03/18 09:46 09/21/18 10:15 Microbiology 10/06/18 12:17 Urine Culture - Final Urine Enterococcus Faecalis Temp Pulse Resp BP Pulse Ox 97.9 F 102 H 22 143/120 H 99 10/09/18 07:36 10/09/18 08:25 10/09/18 07:36 10/09/18 08:25 09/21/18 10:15 Laboratory Results - last 24 hr 10/09/18 09:30 WBC 5.4 D RBC 4.09 Hgb 11.3 L Hct 36.0 MCV 88.0 MCH 27.6 MCHC 31.4 RDW 16.8 H Plt Count 337 MPV 9.8 Gran % 63.5 Lymph % (Auto) 22.0 [place] % (Auto) 12.4 H Eos % (Auto) 1.9 Baso % (Auto) 0.2 Gran # 3.43 Lymph # (Auto) 1.2 [place] # (Auto) 0.7 H Eos # (Auto) 0.1 Baso # (Auto) 0.01 No signs of a granulocytosis Temp Pulse Resp BP Pulse Ox 97.9 F 63 20 128/91 H 99 10/10/18 07:31 10/10/18 09:43 10/10/18 07:31 10/10/18 09:43 09/21/18 10:15 Temp Pulse Resp BP Pulse Ox 97.9 F 88 16 73/49 L 99 10/14/18 06:59 10/14/18 10:09 10/14/18 06:59 10/14/18 10:09 09/21/18 10:15 Laboratory Results - last 24 hr 10/16/18 10/16/18 08:15 08:15 WBC 3.6 L D RBC 4.19 Hgb 11.7 L Hct 36.7 MCV 87.6 MCH 27.9 MCHC 31.9 RDW 16.9 H Plt Count 311 MPV 9.5 Gran % 54.0 Lymph % (Auto) 27.4 [place] % (Auto) 13.6 H Eos % (Auto) 4.7 Baso % (Auto) 0.3 Gran # 1.95 Lymph # (Auto) 1.0 L [place] # (Auto) 0.5 Eos # (Auto) 0.2 Baso # (Auto) 0.01 Sodium 143 Potassium 3.4 L Chloride 105 Carbon Dioxide 31 Anion Gap 11 BUN 17 Creatinine 0.9 Est GFR ( Amer) > 60 Est GFR (Non-Af Amer) > 60 Random Glucose 129 H Calcium 8.9 Phosphorus 3.3 Magnesium 2.5 H Total Bilirubin 0.3 AST 52 H ALT 46 Alkaline Phosphatase 87 Total Protein 7.9 Albumin 3.7 Globulin 4.2 Albumin/Globulin Ratio 0.9 L Triglycerides 129 Cholesterol 184 LDL Cholesterol Direct 114 HDL Cholesterol 41 Temp Pulse Resp BP Pulse Ox 98.0 F 73 20 113/90 99 10/16/18 06:56 10/16/18 06:56 10/16/18 06:56 10/16/18 06:56 09/21/18 10:15 Temp Pulse Resp BP Pulse Ox 98.4 F 99 H 18 113/68 96 10/17/18 14:15 10/17/18 14:15 10/17/18 14:15 10/17/18 14:15 10/17/18 14:15 Laboratory Results - last 24 hr 10/17/18 09:37 Urine HCG, Qual Negative Temp Pulse Resp BP Pulse Ox 98.2 F 100 H 16 135/76 100 10/20/18 11:21 10/20/18 11:21 10/20/18 11:21 10/20/18 11:21 10/20/18 11:21 Abnormal Lab Results 10/19/18 08:00 Procalcitonin 0.09 L Temp Pulse Resp BP Pulse Ox 98 F 102 H 14 104/66 95 10/22/18 11:55 10/22/18 11:55 10/22/18 11:55 10/22/18 11:55 10/22/18 11:55 DSM 5 Symptoms Update: Patient is a 48-year-old [place] female with a psychiatric history of Schizoaffective disorder, multiple prior psychiatric admissions both in [place] and the [place]~ most recently hospitalized at [facility] x6 months ago, who was transferred from the medical floor after being treated from 09/10/18-09/12/18 for dysphagia. Pt was presented with depression, disorgan ization, paranoia, yazidism preoccupation as well as bizarre behavior. On the medical floor patient required 1:1 because she was caught drinking her urine out of the toilet. Patient was trying to punish herself because she didn't deserve to live. Patient attends outpatient psychiatric treatment of [facility]. Her most recent follow up was on September 08, 2018. Patient has been comp liant with Abilify 10 mg daily, Prozac 10 mg daily Seroquel 100 mg BID as well as Abileanne Hartman last injected September 08, 2018. pt was seen and examined today at OR. Pt is scheduled for ECT treatment today, patient signed consent, patient has capacity to do so. Patient presented much better to compare with the last couple of weeks, patient is more alert, coherent, patient said that she is feeling "better, thank God." Patient reported last time she was hearing voices was 2 days ago, when patient was asked about the voices patient affect became flat, patient appears to be scared and paranoid, patient refused to discuss voices any further. Notes reviewed, discussed with staff. The patient has some improvements with presentation, patient is more oriented, more alert, less psychotic, less agitated but thought process seems to be disorganized at times still. as per staff pt still has episodes of confusion, psychosis, but redirectable, had a good night sleep. BL ECT treatment #1 10/17/18, tolerated that well BL ECT treatment #2 10/20/18 tolerated it well BL ECT treatment #3 10/21/18 tolerated it well, but was restless after the procedure, pt needed to have 4xtreatments in order to have productive seizures. BL ECT treatment #4 10/22/18, pt needed to have 3treatments in order to have therapeutic seizures. BL ECT treatment #5 10/23/18, will start with the previous parameters when pt had productive seizures. 150% 0.3ms BL, 50Hz 8sec, 192mC, pt had about 8sec of motor seizures which was considered to be 30%therapeutic by MECTA analysis. this justowriter operator gave another tx 150% 0.5ms BL, 50Hz 8sec, 320mC, pt had about 20sec of motor seizures which was considered to be 66%likely adequate therapeutic seizures by MECTA analysis. BL ECT treatment #6 10/27/18, pt is off benzos and off ambien, that is why this justowriter operator started with: 150% 0.3ms BL, 50Hz 8sec, 192mC, pt did have seizures for about 4seconds, which was considered to be 20%therapeutic by MECTA analysis. another ECT treatment 150%, 0.30msec BL, 60Hz, 8sec, Charge 230Mc, energy 40.6J, pt had only 4sec of motor seizures, which was considered to be 37% therapeutic. another ECT tx 150% 0.30ms BL, 70Hz, 8sec, charge 269mC, energy 47.3J, pt had 16sec of motor and EEG seizures, which was considered to be 53% adequate. pt tolerated treatment well, treatments were spread with the interval of 25- 30sec. Discussed with 10/17/2018, EEG within normal limits, no need for patient to have MRI, patient was cleared for ECT. pt was seen by service line bus cleaner who cleared pt for ECT pt was seen by PMD , pt was cleared for ECT GI team was called for f/u, diet was advanced discussed with ID 10/10/18, wants to observe patient with no antibiotics. Hem/onc was involved because patient has history of breast cancer. 10/15/18 [address] meeting took [address], pt and her (next of kin) both agreed for ECT procedure, see 10/15/18 note for more detailed information. No drooling observed/. clozaril was started 10/01/18, pt is currently on tapering dose of clozaril, with the plan to wean it off because patient was not improving on Clozaril. 10/27/18 discussed with pt's Same, as per "my is doing better, but not 100%", yesterday pt had hallucinations, said that he will keep this justowriter operator informed about pt's progress. asked to bring kids to visit pt, staff educated to assist with that. Diagnostic Results: Schizoaffective Disorder Medication Change: Yes (Clozaril decreased) Medical Record Reviewed: Yes Mental Status Examination - Cognitive Function Orientation: Place Memory: Impaired Attention: Poor (some improvement) Concentration: Poor (some improvement) Association: Loose Fund of Knowledge: Poor - Mood Mood: Depressed - Affect Affect: Constricted (calmer today) - Speech Speech: Appropriate - Formal Thought Process Formal Thought Process: Hallucinations (denied today), Delusions, Paranoia (pt is less paranoid), Loosening of associations - Suicidal Ideation Suicidal Ideation: No - Homicidal Ideation Homicidal Ideation: No Goal/Treatment Plan - Goal/Treatment Plan Need for Continued Stay: Remain at risks for inpatient hospitalization, Severe depression anxiety, Discharge may exacerbated symptoms, Severe functional impairment Progress Toward Problem(s) and Goals/Treatment Plan: group, milieu and supportive tx (as tolerated) Clozaril 150mg po hs, will taper it down because it was not effective, pt is very hard to have blood work from, will benefit from risperda/invega Prozac d/c xanax d/c ambien d/c seroquel discontinued 10/09/2018 Twila Hartman was provided to patient on 09/08/18, no plan to resume Thorazine 50mg po and IM prn ECT #1 10/17/18, pt had about 15 sec of seizures ECT #2 10/20/18, pt had 17 seconds of seizures ECT #3 10/21/18, pt had about 37seconds of seizures ECT #4 10/22/18, pt had 23 seconds of motor/eeg seizures ECT #5 10/23/18 pt had about 20 seconds of motor/EEG seizures ECT #6 10/27/18 Pt had about 16 seconds of motor/EEG tz Most likely patient will need to have about 2 more ECT treatments will start invega or riserdal neurology involved MRI, pt was not able to tolerate EEG, WNL ID and oncology involved GI follow up hem onc involved service line bus cleaner involved consultation for discharge plan and social issues Family involvement, pt wanted her to participate in her care family meeting took place 09/19/[address] 10/15/18 CBC with [id number]/6/2018 no signs of a granulocytosis CBC with differential 10/16/18 no signs of agranulocytosis Patient is registered clozaril [facility]S Follow up on labs Will monitor closely Pt was educated about risk/benefits and alternatives of medications, coping strategies (safety plan, suicide prevention), relapse prevention, importance of follow up with psychiatrist and therapist, stay away from drugs/alcohol/smoking Estimated Date of D/C: 10/30/18
[2018-10-27] MEDS: Magnesium Oxide 400 mg Tab UD PO SCH ×2 (13:22→17:18)
--- NOTE | 2018-10-27 18:23 | PN ---
DATE: 10/27/2018 SUBJECTIVE: The patient is in bed in no acute distress. PHYSICAL EXAMINATION: VITAL SIGNS: Temperature of 98, blood pressure is 105/60, respiratory rate of 18. HEENT: Unremarkable. NECK: Supple. CARDIOPULMONARY: Normal S1, S2. LUNGS: Decreased breath sounds. ABDOMEN: Soft. LABORATORY DATA: Reviewed. ASSESSMENT AND PLAN: This is a 48-year-old female seen earlier today with new onset of systemic inflammatory response syndrome, asymptomatic bacteriuria. Completed Augmentin therapy. The patient is for ECT therapy. Currently off antibiotics. The patient is at risk for developing nosocomial infections. Scotty James MD
[2018-10-28] MEDS: Levothyroxine 100 MCG TAB PO SCH (06:06)
[2018-10-28] MEDS: Pantoprazole 40 mg EC Tab PO SCH (06:06)
[2018-10-28] MEDS: Bacitracin Ointment 30 GM TUBE TOP SCH ×2 (09:08→18:04)
[2018-10-28] MEDS ORDERED: Home Med 1 UNIT IM SCH (10:00)
--- NOTE | 2018-10-28 10:26 | PCM.PYCHPN ---
Psychiatric Progress Note - Psychiatric Progress Note Patient seen today, length of contact: 30 minutes Patient Chief Complaint: "Thank God" Problems Identified/Issues Discussed: this brief writer attempted to discuss suicide/ homicide prevention, past psychiatric h/o, current psychiatric symptoms, medical problems, risk/benefits and alternatives of medications, medications compliance, coping strategies, substance abuse h/o, relapse prevention, importance of follow up with ps ychiatrist and therapist, discharge plan. Medical Problems: pt was dehydrated, but doing better dysphagia is better UTI, patient completed course of antibiotics urine analysis showed leukocyte esterase again on 10/01/2018, Infectious disease wants to observe patient without antibiotics, discussed with 10/10/18 neurology consult was called, pt is not improving for the past 3weeks CT scan at the time of admission 09/14/18 was WNL. Discussed with Dr. Deleon 10/14/2018: MRI of the brain was not able to tolerate, d/c by neurology discussed with 10/17/18, patient is cleared for ECT. EEG was WNL Diagnostic Results: 09/14/18 09:10 09/15/18 08:00 Lab Results 09/15/18 08:00: Sodium 140, Potassium 4.0, Chloride 102, Carbon Dioxide 28, Anion Gap 14, BUN 15, Creatinine 1.2, Est GFR ( Amer) 58, Est GFR (Non-Af Amer) 48, Random Glucose 97, Calcium 9.8 09/14/18 17:40: Urine Color Yellow, Urine Appearance Sl cloudy, Urine pH 6.0, Ur Specific [place] 1.010, Urine Protein Negative, Urine Glucose (UA) Negative, Urine Ketones Negative, Urine Blood Small H, Urine Nitrate Positive H, Urine Bilirubin Negative, Urine Urobilinogen 0.2, Ur Leukocyte Esterase Small H, Urine RBC 5 - 10, Urine WBC 20 - 25, Ur Epithelial Cells 10 - 12, Urine Bacteria Many 09/14/18 09:10: RPR Nonreactive 09/14/18 09:10: TSH 3rd Generation 5.59 H 09/14/18 09:10: Sodium 140, Potassium 4.0, Chloride 104, Carbon Dioxide 21, Anion Gap 18, BUN 15, Creatinine 1.6 H, Est GFR ( Amer) 42, Est GFR (Non- Af Amer) 35, Random Glucose 85, Calcium 10.0, Phosphorus 2.8, Magnesium 1.6 L, Total Bilirubin 0.5, AST 89 H D, ALT 57 H, Alkaline Phosphatase 88, Total Protein 8.0, Albumin 4.4, Globulin 3.6, Albumin/Globulin Ratio 1.2, Triglycerides 102, Cholesterol 234 H, LDL Cholesterol Direct 155 H, HDL Cholesterol 60 09/14/18 09:10: WBC 4.7 D, RBC 4.39, Hgb 12.4, Hct 37.8, MCV 86.1, MCH 28.2, MCHC 32.8, RDW 16.4 H, Plt Count 360, MPV 9.4, Gran % 50.8, Lymph % (Auto) 34.7, [place] % (Auto) 13.4 H, Eos % (Auto) 0.9 L, Baso % (Auto) 0.2, Gran # 2.39, Lymph # (Auto) 1.6, [place] # (Auto) 0.6, Eos # (Auto) 0.0, Baso # (Auto) 0.01 Microbiology 09/14/18 17:40 Urine Urine Culture - Preliminary Gram Negative [facility] Laboratory Results - last 24 hr 09/19/18 09:55 WBC 4.5 RBC 4.35 Hgb 12.2 Hct 38.3 MCV 88.0 MCH 28.0 MCHC 31.9 RDW 16.6 H Plt Count 318 MPV 9.6 Gran % 54.3 Lymph % (Auto) 30.0 [place] % (Auto) 14.8 H Eos % (Auto) 0.7 L Baso % (Auto) 0.2 Gran # 2.43 Lymph # (Auto) 1.3 [place] # (Auto) 0.7 H Eos # (Auto) 0.0 Baso # (Auto) 0.01 Abnormal Lab Results 09/22/18 09/22/18 07:30 07:30 WBC 3.4 L D RBC 4.34 Hgb 12.2 Hct 37.4 MCV 86.2 MCH 28.1 MCHC 32.6 RDW 16.5 H Plt Count 373 MPV 9.7 Sodium 141 Potassium 5.0 Chloride 107 Carbon Dioxide 25 Anion Gap 14 BUN 18 Creatinine 1.5 H Est GFR ( Amer) 45 Est GFR (Non-Af Amer) 37 Random Glucose 98 Calcium 10.2 Laboratory Results - last 72 hr 09/25/18 14:47 POC Glucose (mg/dL) 94 Vital Signs Temp Pulse Resp BP Pulse Ox 09/27/18 16:00 52 L 108/81 09/27/18 08:40 84 122/67 09/27/18 07:00 97.3 F L 84 18 122/67 09/26/18 08:04 121 H 136/114 H 09/26/18 07:26 98.2 F 54 L 22 136/114 H 09/25/18 09:08 80 124/70 09/24/18 16:00 93 H 112/74 09/24/18 09:17 97/50 L 09/24/18 07:20 97.1 F L 82 16 97/50 L 09/24/18 07:18 97.1 F L 82 20 97/50 L 09/23/18 16:00 86 110/67 09/23/18 06:49 97.7 F 77 20 114/69 09/22/18 16:00 83 103/57 L 09/22/18 12:26 97 H 110/72 09/21/18 10:21 90 116/71 09/21/18 10:15 98.4 F 90 20 116/71 99 09/20/18 15:45 100 H 95/70 L 09/20/18 10:04 93 H 146/96 H 09/20/18 06:48 98.1 F 79 16 98/60 L 09/19/18 16:00 60 116/88 09/19/18 07:28 97.3 F L 91 H 20 115/75 09/17/18 15:00 73 H 128/106 H 09/17/18 09:30 68 116/62 09/17/18 07:25 97.1 F L 80 18 92/58 L 09/16/18 16:00 102 H 120/81 09/16/18 09:47 104 H 124/99 H 09/16/18 07:17 98.0 F 87 18 98/59 L 09/15/18 09:07 103 H 106/70 09/15/18 07:00 97.8 F 105 H 19 86/60 L 09/14/18 16:28 90 139/118 H 09/14/18 07:00 97.9 F 60 17 115/72 09/13/18 08:30 114 H 20 129/100 H 09/13/18 07:00 98.5 F 55 L 22 169/114 H 09/13/18 06:50 55 L 169/114 H 09/12/18 16:11 97.2 F L 80 20 114/64 09/12/18 15:39 20 Abnormal Lab Results 09/29/18 19:14 WBC 4.8 RBC 4.34 Hgb 12.3 Hct 38.4 MCV 88.5 MCH 28.3 MCHC 32.0 RDW 16.7 H Plt Count 261 MPV 10.7 Gran % 39.9 L Lymph % (Auto) 42.[address] % (Auto) 15.8 H Eos % (Auto) 1.9 Baso % (Auto) 0.4 Gran # 1.90 Lymph # (Auto) 2.0 [place] # (Auto) 0.8 H Eos # (Auto) 0.1 Baso # (Auto) 0.02 Abnormal Lab Results 10/01/18 10/01/18 10/01/18 07:50 07:50 07:50 WBC 3.2 L D RBC 4.39 Hgb 12.2 Hct 38.8 MCV 88.4 MCH 27.8 MCHC 31.4 RDW 16.7 H Plt Count 280 MPV 9.9 Sodium 141 Potassium 4.2 Chloride 108 H Carbon Dioxide 28 Anion Gap 10 BUN 16 Creatinine 1.1 Est GFR ( Amer) > 60 Est GFR (Non-Af Amer) 53 Random Glucose 98 Calcium 9.5 Thyroxine (T4) 8.4 TSH 3rd Generation 1.86 Cortisol AM Sample 10/01/18 07:50 WBC RBC Hgb Hct MCV MCH MCHC RDW Plt Count MPV Sodium Potassium Chloride Carbon Dioxide Anion Gap BUN Creatinine Est GFR ( Amer) Est GFR (Non-Af Amer) Random Glucose Calcium Thyroxine (T4) TSH 3rd Generation Cortisol AM Sample 19.5 Temp Pulse Resp BP Pulse Ox 97.9 F 113 H 20 105/72 99 10/03/18 07:17 10/03/18 09:46 10/03/18 07:17 10/03/18 09:46 09/21/18 10:15 Microbiology 10/06/18 12:17 Urine Culture - Final Urine Enterococcus Faecalis Temp Pulse Resp BP Pulse Ox 97.9 F 102 H 22 143/120 H 99 10/09/18 07:36 10/09/18 08:25 10/09/18 07:36 10/09/18 08:25 09/21/18 10:15 Laboratory Results - last 24 hr 10/09/18 09:30 WBC 5.4 D RBC 4.09 Hgb 11.3 L Hct 36.0 MCV 88.0 MCH 27.6 MCHC 31.4 RDW 16.8 H Plt Count 337 MPV 9.8 Gran % 63.5 Lymph % (Auto) 22.0 [place] % (Auto) 12.4 H Eos % (Auto) 1.9 Baso % (Auto) 0.2 Gran # 3.43 Lymph # (Auto) 1.2 [place] # (Auto) 0.7 H Eos # (Auto) 0.1 Baso # (Auto) 0.01 No signs of a granulocytosis Temp Pulse Resp BP Pulse Ox 97.9 F 63 20 128/91 H 99 10/10/18 07:31 10/10/18 09:43 10/10/18 07:31 10/10/18 09:43 09/21/18 10:15 Temp Pulse Resp BP Pulse Ox 97.9 F 88 16 73/49 L 99 10/14/18 06:59 10/14/18 10:09 10/14/18 06:59 10/14/18 10:09 09/21/18 10:15 Laboratory Results - last 24 hr 10/16/18 10/16/18 08:15 08:15 WBC 3.6 L D RBC 4.19 Hgb 11.7 L Hct 36.7 MCV 87.6 MCH 27.9 MCHC 31.9 RDW 16.9 H Plt Count 311 MPV 9.5 Gran % 54.0 Lymph % (Auto) 27.4 [place] % (Auto) 13.6 H Eos % (Auto) 4.7 Baso % (Auto) 0.3 Gran # 1.95 Lymph # (Auto) 1.[address] # (Auto) 0.5 Eos # (Auto) 0.2 Baso # (Auto) 0.01 Sodium 143 Potassium 3.4 L Chloride 105 Carbon Dioxide 31 Anion Gap 11 BUN 17 Creatinine 0.9 Est GFR ( Amer) > 60 Est GFR (Non-Af Amer) > 60 Random Glucose 129 H Calcium 8.9 Phosphorus 3.3 Magnesium 2.5 H Total Bilirubin 0.3 AST 52 H ALT 46 Alkaline Phosphatase 87 Total Protein 7.9 Albumin 3.7 Globulin 4.2 Albumin/Globulin Ratio 0.9 L Triglycerides 129 Cholesterol 184 LDL Cholesterol Direct 114 HDL Cholesterol 41 Temp Pulse Resp BP Pulse Ox 98.0 F 73 20 113/90 99 10/16/18 06:56 10/16/18 06:56 10/16/18 06:56 10/16/18 06:56 09/21/18 10:15 Temp Pulse Resp BP Pulse Ox 98.4 F 99 H 18 113/68 96 10/17/18 14:15 10/17/18 14:15 10/17/18 14:15 10/17/18 14:15 10/17/18 14:15 Laboratory Results - last 24 hr 10/17/18 09:37 Urine HCG, Qual Negative Temp Pulse Resp BP Pulse Ox 98.2 F 100 H 16 135/76 100 10/20/18 11:21 10/20/18 11:21 10/20/18 11:21 10/20/18 11:21 10/20/18 11:21 Abnormal Lab Results 10/19/18 08:00 Procalcitonin 0.09 L Temp Pulse Resp BP Pulse Ox 98 F 102 H 14 104/66 95 10/22/18 11:55 10/22/18 11:55 10/22/18 11:55 10/22/18 11:55 10/22/18 11:55 DSM 5 Symptoms Update: Patient is a 48-year-old [place]ian female with a psychiatric history of Schizoaffective disorder, multiple prior psychiatric admissions both in [place] and the [place]~ most recently hospitalized at [facility] x6 months ago, who was transferred from the medical floor after being treated from 09/10/18-09/12/18 for dysphagia. Pt was presented with depression, disorganization, paranoia, evangelical preoccupation as well as bizarre behavior. On the medical floor patient required 1:1 because she was caught drinking her urine out of the toilet. Patient was trying to punish herself because she didn't deserve to live. Patient attends outpatient psychiatric treatment of [facility]. Her most recent follow up was on September 08, 2018. Patient has been compliant with Abilify 10 mg daily, Prozac 10 mg daily Seroquel 100 mg BID as well as Abiliclaire Blancotenna last injected September 08, 2018. pt was seen and examined today in her room, patient presented to be sleepy but easily arousable, patient reported her mood as "good thank God". Patient got ECT yesterday 10/27/2018, tolerated well, no side effects, no memory issues no cognitive impairment. Patient is not tapering dose of Clozaril, so far tolerated it well, Risperdal will be initiated today 1 mg twice a day to help with patient with psychotic symptoms. Patient denied any voices today, still appeared to be frightened and was asked about this question. Notes reviewed, discussed with staff. The patient has some improvements with presentation, patient is more oriented, more alert, less psychotic, less agitated but thought process seems to be disorganized at times still. as per staff pt still has episodes of confusion, psychosis, but redirectable, had a good night sleep. BL ECT treatment #1 10/17/18, tolerated that well BL ECT treatment #2 10/20/18 tolerated it well BL ECT treatment #3 10/21/18 tolerated it well, but was restless after the procedure, pt needed to have 4xtreatments in order to have productive seizures. BL ECT treatment #4 10/22/18, pt needed to have 3treatments in order to have therapeutic seizures. BL ECT treatment #5 10/23/18, will start with the previous parameters when pt had productive seizures. 150% 0.3ms BL, 50Hz 8sec, 192mC, pt had about 8sec of motor seizures which was considered to be 30%therapeutic by MECTA analysis. this brief writer gave another tx 150% 0.5ms BL, 50Hz 8sec, 320mC, pt had about 20sec of motor seizures which was considered to be 66%likely adequate therapeutic seizures by MECTA analysis. BL ECT treatment #6 10/27/18, pt is off benzos and off ambien, that is why this brief writer started with: 150% 0.3ms BL, 50Hz 8sec, 192mC, pt did have seizures for about 4seconds, which was considered to be 20%therapeutic by MECTA analysis. another ECT treatment 150%, 0.30msec BL, 60Hz, 8sec, Charge 230Mc, energy 40.6J, pt had only 4sec of motor seizures, which was considered to be 37% therapeutic. another ECT tx 150% 0.30ms BL, 70Hz, 8sec, charge 269mC, energy 47.3J, pt had 16sec of motor and EEG seizures, which was considered to be 53% adequate. pt tolerated treatment well, treatments were spread with the interval of 25- 30sec. Discussed with 10/17/2018, EEG within normal limits, no need for p atient to have MRI, patient was cleared for ECT. pt was seen by stator tester who cleared pt for ECT pt was seen by PMD , pt was cleared for ECT GI team was called for f/u, diet was advanced discussed with ID 10/10/18, wants to observe patient with no antibiotics. Hem/onc was involved because patient has history of breast cancer. 10/15/[address] meeting [address], pt and her (next of kin) both agreed for ECT procedure, see 10/15/18 note for more detailed information. 10/27/18 discussed with pt's Same, as per "my is doing better, but not 100%", yesterday pt had hallucinations, said that he will keep this brief writer informed about pt's progress. asked to bring kids to visit pt, staff educated to assist with that. No drooling observed/. clozaril was started 10/01/18, pt is currently on tapering dose of clozaril, with the plan to wean it off because patient was not improving on Clozaril. Diagnostic Results: Schizoaffective Disorder Medication Change: Yes (Clozaril decreased, Risperdal started) Medical Record Reviewed: Yes Mental Status Examination - Cognitive Function Orientation: Place Memory: Impaired Attention: Poor (some improvement) Concentration: Poor (some improvement) Association: Loose Fund of Knowledge: Poor - Mood Mood: Depressed - Affect Affect: Constricted (calmer today) - Speech Speech: Appropriate - Formal Thought Process Formal Thought Process: Hallucinations (denied today), Delusions, Paranoia (pt is less paranoid), Loosening of associations - Suicidal Ideation Suicidal Ideation: No - Homicidal Ideation Homicidal Ideation: No Goal/Treatment Plan - Goal/Treatment Plan Need for Continued Stay: Remain at risks for inpatient hospitalization, Severe depression anxiety, Discharge may exacerbated symptoms, Severe functional impairment Progress Toward Problem(s) and Goals/Treatment Plan: group, milieu and supportive tx (as tolerated) Clozaril 100mg po hs, will taper it down because it was not effective, pt is very hard to have blood work from, will benefit from risperda/invega Prozac d/c xanax d/c ambien d/c seroquel discontinued 10/09/2018 Twila Hartman was provided to patient on 09/08/18, no plan to resume Thorazine 50mg po and IM prn ECT #1 10/17/18, pt had about 15 sec of seizures ECT #2 10/20/18, pt had 17 seconds of seizures ECT #3 10/21/18, pt had about 37seconds of seizures ECT #4 10/22/18, pt had 23 seconds of motor/eeg seizures ECT #5 10/23/18 pt had about 20 seconds of motor/EEG seizures ECT #6 10/27/18 Pt had about 16 seconds of motor/EEG tz ECT #7 10/29/18 Most likely patient will need to have about 2 more ECT treatments neurology involved MRI, pt was not able to tolerate EEG, WNL ID and oncology involved GI follow up hem onc involved stator tester involved consultation for discharge plan and social issues Family involvement, pt wanted her to participate in her care family meeting took place 09/19/[address] 10/15/18 CBC with [id number] no signs of a granulocytosis CBC with differential 10/16/18 no signs of agranulocytosis CBC with differential 10/21/18 no signs of agranulocytosis CBC with differential 10/28/18 will f/u Patient is registered clozaril [facility]S Follow up on labs Will monitor closely Pt was educated about risk/benefits and alternatives of medications, coping strategies (safety plan, suicide prevention), relapse prevention, importance of follow up with psychiatrist and therapist, stay away from drugs/alcohol/smoking Estimated Date of D/C: 10/31/18
[2018-10-28] MEDS: Magnesium Oxide 400 mg Tab UD PO SCH ×2 (10:54→17:55)
[2018-10-28 10:57] LABS: BASO # 0.02 K/mm3 (0.0-2.0); BASO % 0.4 % (0.0-3.0); EOS # 0.3 (0.0-0.7); GRAN # 2.35 (1.4-6.5); GRAN % 42.3 % (50.0-68.0); HEMOGLOBIN 9.8 g/dL (12.0-16.0); LYMPH # 2.5 (1.2-3.4); LYMPH % 44.6 % (22.0-35.0); MEAN CELL VOLUME 88.2 fl (80.0-105.0); MEAN CORPUSCULAR HEMOGLOBIN 27.5 pg (25.0-35.0); MEAN CORPUSCULAR HGB CONC 31.2 g/dl (31.0-37.0); MEAN PLATELET VOLUME 8.9 fl (7.0-11.0); MONO # 0.4 (0.1-0.6); MONO % 6.7 % (1.0-6.0); RBC 3.56 10^6/uL (3.5-6.1); RED CELL DISTRIBUTION WIDTH 17.7 % (11.5-14.5); WHITE BLOOD COUNT 5.5 10^3/uL (4.5-11.0)
--- NOTE | 2018-10-28 14:13 | PN ---
DATE: 10/28/2018 SUBJECTIVE: The patient is in bed in no acute distress. PHYSICAL EXAMINATION: VITAL SIGNS: Temperature 97, blood pressure 107/70, respiratory rate 20. HEENT: Examination of HEENT is unremarkable. NECK: Supple. LUNGS: Decreased breath sounds. HEART: Normal S1, S2. ABDOMEN: Soft, nontender. LABORATORY DATA: White count of 5.5. Chemistries reveals a BUN of 14, creatinine of 0.8, procalcitonin 0.09. Urinalysis is noted and serology is noted to be negative. Microbiology is reviewed. Review of orders reveals the patient to be off antibiotics. ASSESSMENT AND PLAN: This is a 48-year-old female seen earlier this morning on the psychiatric floor with new onset of SIRS, systemic inflammatory response syndrome; asymptomatic bacteriuria; and had been treated with some Augmentin . She had an ECG therapy. Currently off the antibiotics as she is at risk of developing nosocomial infections. Scotty James MD
--- NOTE | 2018-10-28 23:37 | PN ---
DATE: 10/27/2018 SUBJECTIVE: The patient seems doing better, more alert, awake, and oriented x3. Seems talking, focused on her talk, and seems not agitated with ECT, is responding very well. PHYSICAL EXAMINATION VITAL SIGNS: As follows. Temperature is 98, heart rate is 99, blood pressure is 115/78, respirations 16, saturation 99% on liters. HEAD AND NECK: Normal. No JVD. No thyromegaly. CHEST: Clear bilaterally. CARDIAC: First and second sounds normal. ABDOMEN: Soft, obese, nontender. EXTREMITIES: No edema except right upper extremity. NEUROLOGIC: Normal. The patient's head seems to be moving around very well and her gait is stable. No falls. No complain of any short of breath. IMPRESSION AND PLAN: 1. Acute schizophrenic affective disorder. Continue current therapy. She is doing very well with Clozaril 100 mg at bedtime and also she is getting Risperdal 1 mg in the morning and at night. 2. Hypothyroidism. 3. Anemia. 4. Dysphagia. 5. Overweight or obesity. Her BMI is overweight. The patient is advised to continue current therapy, follow up clinically. She seems moving around and doing well, moving her bowels and eating better. Igor Ca MD
[2018-10-29] MEDS: Levothyroxine 100 MCG TAB PO SCH (06:28)
[2018-10-29] MEDS: Pantoprazole 40 mg EC Tab PO SCH (06:28)
[2018-10-29] MEDS: Bacitracin Ointment 30 GM TUBE TOP SCH ×2 (08:00→15:39)
[2018-10-29] MEDS ORDERED: Propofol 10 mg/ml Inj (20 ML) ONE (11:07)
[2018-10-29] MEDS ORDERED: Succinylcholine 200 mg/10 ml Inj IV ONE (11:10)
[2018-10-29] MEDS: Enoxaparin 40 mg Syringe SC SCH (13:06)
--- NOTE | 2018-10-29 13:06 | PCM.PYCHPN ---
Psychiatric Progress Note - Psychiatric Progress Note Patient seen today, length of contact: 30 minutes Patient Chief Complaint: "Thank God" Problems Identified/Issues Discussed: this information writer attempted to discuss suicide/ homicide prevention, past psychiatric h/o, current psychiatric symptoms, medical problems, risk/benefits and alternatives of medications, medications compliance, coping strategies, substance abuse h/o, relapse prevention, importance of follow up with ps ychiatrist and therapist, discharge plan. Medical Problems: pt was dehydrated, but doing better dysphagia is better UTI, patient completed course of antibiotics urine analysis showed leukocyte esterase again on 10/01/2018, Infectious disease wants to observe patient without antibiotics, discussed with 10/10/18 neurology consult was called, pt is not improving for the past 3weeks CT scan at the time of admission 09/14/18 was WNL. Discussed with Dr. Deleon 10/14/2018: MRI of the brain was not able to tolerate, d/c by neurology discussed with 10/17/18, patient is cleared for ECT. EEG was WNL Diagnostic Results: 09/14/18 09:10 09/15/18 08:00 Lab Results 09/15/18 08:00: Sodium 140, Potassium 4.0, Chloride 102, Carbon Dioxide 28, Anion Gap 14, BUN 15, Creatinine 1.2, Est GFR ( Amer) 58, Est GFR (Non-Af Amer) 48, Random Glucose 97, Calcium 9.8 09/14/18 17:40: Urine Color Yellow, Urine Appearance Sl cloudy, Urine pH 6.0, Ur Specific [place] 1.010, Urine Protein Negative, Urine Glucose (UA) Negative, Urine Ketones Negative, Urine Blood Small H, Urine Nitrate Positive H, Urine Bilirubin Negative, Urine Urobilinogen 0.2, Ur Leukocyte Esterase Small H, Urine RBC 5 - 10, Urine WBC 20 - 25, Ur Epithelial Cells 10 - 12, Urine Bacteria Many 09/14/18 09:10: RPR Nonreactive 09/14/18 09:10: TSH 3rd Generation 5.59 H 09/14/18 09:10: Sodium 140, Potassium 4.0, Chloride 104, Carbon Dioxide 21, Anion Gap 18, BUN 15, Creatinine 1.6 H, Est GFR ( Amer) 42, Est GFR (Non- Af Amer) 35, Random Glucose 85, Calcium 10.0, Phosphorus 2.8, Magnesium 1.6 L, Total Bilirubin 0.5, AST 89 H D, ALT 57 H, Alkaline Phosphatase 88, Total Protein 8.0, Albumin 4.4, Globulin 3.6, Albumin/Globulin Ratio 1.2, Triglycerides 102, Cholesterol 234 H, LDL Cholesterol Direct 155 H, HDL Cholesterol 60 09/14/18 09:10: WBC 4.7 D, RBC 4.39, Hgb 12.4, Hct 37.8, MCV 86.1, MCH 28.2, MCHC 32.8, RDW 16.4 H, Plt Count 360, MPV 9.4, Gran % 50.8, Lymph % (Auto) 34.7, Terrell % (Auto) 13.4 H, Eos % (Auto) 0.9 L, Baso % (Auto) 0.2, Gran # 2.39, Lymph # (Auto) 1.6, Terrell # (Auto) 0.6, Eos # (Auto) 0.0, Baso # (Auto) 0.01 Microbiology 09/14/18 17:40 Urine Urine Culture - Preliminary Gram Negative [facility] Laboratory Results - last 24 hr 09/19/18 09:55 WBC 4.5 RBC 4.35 Hgb 12.2 Hct 38.3 MCV 88.0 MCH 28.0 MCHC 31.9 RDW 16.6 H Plt Count 318 MPV 9.6 Gran % 54.3 Lymph % (Auto) 30.0 Terrell % (Auto) 14.8 H Eos % (Auto) 0.7 L Baso % (Auto) 0.2 Gran # 2.43 Lymph # (Auto) 1.3 Terrell # (Auto) 0.7 H Eos # (Auto) 0.0 Baso # (Auto) 0.01 Abnormal Lab Results 09/22/18 09/22/18 07:30 07:30 WBC 3.4 L D RBC 4.34 Hgb 12.2 Hct 37.4 MCV 86.2 MCH 28.1 MCHC 32.6 RDW 16.5 H Plt Count 373 MPV 9.7 Sodium 141 Potassium 5.0 Chloride 107 Carbon Dioxide 25 Anion Gap 14 BUN 18 Creatinine 1.5 H Est GFR ( Amer) 45 Est GFR (Non-Af Amer) 37 Random Glucose 98 Calcium 10.2 Laboratory Results - last 72 hr 09/25/18 14:47 POC Glucose (mg/dL) 94 Vital Signs Temp Pulse Resp BP Pulse Ox 09/27/18 16:00 52 L 108/81 09/27/18 08:40 84 122/67 09/27/18 07:00 97.3 F L 84 18 122/67 09/26/18 08:04 121 H 136/114 H 09/26/18 07:26 98.2 F 54 L 22 136/114 H 09/25/18 09:08 80 124/70 09/24/18 16:00 93 H 112/74 09/24/18 09:17 97/50 L 09/24/18 07:20 97.1 F L 82 16 97/50 L 09/24/18 07:18 97.1 F L 82 20 97/50 L 09/23/18 16:00 86 110/67 09/23/18 06:49 97.7 F 77 20 114/69 09/22/18 16:00 83 103/57 L 09/22/18 12:26 97 H 110/72 09/21/18 10:21 90 116/71 09/21/18 10:15 98.4 F 90 20 116/71 99 09/20/18 15:45 100 H 95/70 L 09/20/18 10:04 93 H 146/96 H 09/20/18 06:48 98.1 F 79 16 98/60 L 09/19/18 16:00 60 116/88 09/19/18 07:28 97.3 F L 91 H 20 115/75 09/17/18 15:00 73 H 128/106 H 09/17/18 09:30 68 116/62 09/17/18 07:25 97.1 F L 80 18 92/58 L 09/16/18 16:00 102 H 120/81 09/16/18 09:47 104 H 124/99 H 09/16/18 07:17 98.0 F 87 18 98/59 L 09/15/18 09:07 103 H 106/70 09/15/18 07:00 97.8 F 105 H 19 86/60 L 09/14/18 16:28 90 139/118 H 09/14/18 07:00 97.9 F 60 17 115/72 09/13/18 08:30 114 H 20 129/100 H 09/13/18 07:00 98.5 F 55 L 22 169/114 H 09/13/18 06:50 55 L 169/114 H 09/12/18 16:11 97.2 F L 80 20 114/64 09/12/18 15:39 20 Abnormal Lab Results 09/29/18 19:14 WBC 4.8 RBC 4.34 Hgb 12.3 Hct 38.4 MCV 88.5 MCH 28.3 MCHC 32.0 RDW 16.7 H Plt Count 261 MPV 10.7 Gran % 39.9 L Lymph % (Auto) 42.0 H Terrell % (Auto) 15.8 H Eos % (Auto) 1.9 Baso % (Auto) 0.4 Gran # 1.90 Lymph # (Auto) 2.0 Terrell # (Auto) 0.8 H Eos # (Auto) 0.1 Baso # (Auto) 0.02 Abnormal Lab Results 10/01/18 10/01/18 10/01/18 07:50 07:50 07:50 WBC 3.2 L D RBC 4.39 Hgb 12.2 Hct 38.8 MCV 88.4 MCH 27.8 MCHC 31.4 RDW 16.7 H Plt Count 280 MPV 9.9 Sodium 141 Potassium 4.2 Chloride 108 H Carbon Dioxide 28 Anion Gap 10 BUN 16 Creatinine 1.1 Est GFR ( Amer) > 60 Est GFR (Non-Af Amer) 53 Random Glucose 98 Calcium 9.5 Thyroxine (T4) 8.4 TSH 3rd Generation 1.86 Cortisol AM Sample 10/01/18 07:50 WBC RBC Hgb Hct MCV MCH MCHC RDW Plt Count MPV Sodium Potassium Chloride Carbon Dioxide Anion Gap BUN Creatinine Est GFR ( Amer) Est GFR (Non-Af Amer) Random Glucose Calcium Thyroxine (T4) TSH 3rd Generation Cortisol AM Sample 19.5 Temp Pulse Resp BP Pulse Ox 97.9 F 113 H 20 105/72 99 10/03/18 07:17 10/03/18 09:46 10/03/18 07:17 10/03/18 09:46 09/21/18 10:15 Microbiology 10/06/18 12:17 Urine Culture - Final Urine Enterococcus Faecalis Temp Pulse Resp BP Pulse Ox 97.9 F 102 H 22 143/120 H 99 10/09/18 07:36 10/09/18 08:25 10/09/18 07:36 10/09/18 08:25 09/21/18 10:15 Laboratory Results - last 24 hr 10/09/18 09:30 WBC 5.4 D RBC 4.09 Hgb 11.3 L Hct 36.0 MCV 88.0 MCH 27.6 MCHC 31.4 RDW 16.8 H Plt Count 337 MPV 9.8 Gran % 63.5 Lymph % (Auto) 22.0 Terrell % (Auto) 12.4 H Eos % (Auto) 1.9 Baso % (Auto) 0.2 Gran # 3.43 Lymph # (Auto) 1.2 Terrell # (Auto) 0.7 H Eos # (Auto) 0.1 Baso # (Auto) 0.01 No signs of a granulocytosis Temp Pulse Resp BP Pulse Ox 97.9 F 63 20 128/91 H 99 10/10/18 07:31 10/10/18 09:43 10/10/18 07:31 10/10/18 09:43 09/21/18 10:15 Temp Pulse Resp BP Pulse Ox 97.9 F 88 16 73/49 L 99 10/14/18 06:59 10/14/18 10:09 10/14/18 06:59 10/14/18 10:09 09/21/18 10:15 Laboratory Results - last 24 hr 10/16/18 10/16/18 08:15 08:15 WBC 3.6 L D RBC 4.19 Hgb 11.7 L Hct 36.7 MCV 87.6 MCH 27.9 MCHC 31.9 RDW 16.9 H Plt Count 311 MPV 9.5 Gran % 54.0 Lymph % (Auto) 27.4 Terrell % (Auto) 13.6 H Eos % (Auto) 4.7 Baso % (Auto) 0.3 Gran # 1.95 Lymph # (Auto) 1.0 L Terrell # (Auto) 0.5 Eos # (Auto) 0.2 Baso # (Auto) 0.01 Sodium 143 Potassium 3.4 L Chloride 105 Carbon Dioxide 31 Anion Gap 11 BUN 17 Creatinine 0.9 Est GFR ( Amer) > 60 Est GFR (Non-Af Amer) > 60 Random Glucose 129 H Calcium 8.9 Phosphorus 3.3 Magnesium 2.5 H Total Bilirubin 0.3 AST 52 H ALT 46 Alkaline Phosphatase 87 Total Protein 7.9 Albumin 3.7 Globulin 4.2 Albumin/Globulin Ratio 0.9 L Triglycerides 129 Cholesterol 184 LDL Cholesterol Direct 114 HDL Cholesterol 41 Temp Pulse Resp BP Pulse Ox 98.0 F 73 20 113/90 99 10/16/18 06:56 10/16/18 06:56 10/16/18 06:56 10/16/18 06:56 09/21/18 10:15 Temp Pulse Resp BP Pulse Ox 98.4 F 99 H 18 113/68 96 10/17/18 14:15 10/17/18 14:15 10/17/18 14:15 10/17/18 14:15 10/17/18 14:15 Laboratory Results - last 24 hr 10/17/18 09:37 Urine HCG, Qual Negative Temp Pulse Resp BP Pulse Ox 98.2 F 100 H 16 135/76 100 10/20/18 11:21 10/20/18 11:21 10/20/18 11:21 10/20/18 11:21 10/20/18 11:21 Abnormal Lab Results 10/19/18 08:00 Procalcitonin 0.09 L Temp Pulse Resp BP Pulse Ox 98 F 102 H 14 104/66 95 10/22/18 11:55 10/22/18 11:55 10/22/18 11:55 10/22/18 11:55 10/22/18 11:55 DSM 5 Symptoms Update: Patient is a 48-year-old [place] female with a psychiatric history of Schizoaffective disorder, multiple prior psychiatric admissions both in [place] and the [place]~ most recently hospitalized at [facility] x6 months ago, who was transferred from the medical floor after being treated from 09/10/18-09/12/18 for dysphagia. Pt was presented with depression, disorganization, paranoia, anabaptism preoccupation as well as bizarre behavior. On the medical floor patient required 1:1 because she was caught drinking her urine out of the toilet. Patient was trying to punish herself because she didn't deserve to live. Patient attends outpatient psychiatric treatment of [facility]. Her most recent follow up was on September 08, 2018. Patient has been compliant with Abilify 10 mg daily, Prozac 10 mg daily Seroquel 100 mg BID as well as Abileanne Brownena last injected September 08, 2018. pt was seen for car, patient presented well, patient seems to be happy to see this information writer, pt reported that she feels "much better, thank God doctor". pt denied being depressed, denied hearing voices or seeing things. as per staff pt needs constant redirection, but pt not agitated or aggressive. pt is on tapering dose of clozaril, tolerated it well, CBC done, no signs of angranulocytosis, pt is a very hard to obtain blood work, moreover pt was not improving on clozaril. Pt needs to stay in the hospital for completing tx and meds adjustment. pt's appetite is better, pot is able to tolerate food, pt has a good night sleep. Notes reviewed, discussed with staff. The patient has some improvements with presentation, patient is more oriented, more alert, less psychotic, less agitated but thought process seems to be disorganized at times still. BL ECT treatment #1 10/17/18, tolerated that well BL ECT treatment #2 10/20/18 tolerated it well BL ECT treatment #3 10/21/18 tolerated it well, but was restless after the pr ocedure, pt needed to have 4xtreatments in order to have productive seizures. BL ECT treatment #4 10/22/18, pt needed to have 3treatments in order to have therapeutic seizures. BL ECT treatment #5 10/23/18, pt needed to have 2ECT tx in order to have therapeutic seizures. 150% 0.5ms BL, 50Hz 8sec, 320mC, pt had about 20sec of motor seizures which was considered to be 66%likely adequate therapeutic seizures by MECTA analysis. BL ECT treatment #6 10/27/18, pt had adequate seizures at 150% 0.30ms BL, 70Hz, 8sec, charge 269mC, energy 47.3J, pt had 16sec of motor and EEG seizures, which was considered to be 53% adequate. BL ECT treatment #7 10/29/18, pt needed to have 3tx in order to have adequate seizures. pt had adequate seizures at 0.5ms BL, 50Hz 8sec, 320mC, pt had about 16sec of motor seizures which was considered to be 64%likely adequate therapeutic seizures by MECTA analysis. pt tolerated treatment well, treatments were spread with the interval of 25- 30sec. last inpatient ECT scheduled for 10/31/18, then will be d/c back home, with the plan to give ECT tx weekly, after 4xtx, every other week for the next month, after that once a month tx. Discussed with 10/17/2018, EEG within normal limits, no need for patient to have MRI, patient was cleared for ECT. pt was seen by lard mixer who cleared pt for ECT pt was seen by PMD , pt was cleared for ECT GI team was called for f/u, diet was advanced discussed with ID 10/10/18, wants to observe patient with no antibiotics. Hem/onc was involved because patient has history of breast cancer. 10/15/18 [address] meeting took [address], pt and her (next of kin) both agreed for ECT procedure, see 10/15/18 note for more detailed information. 10/27/18 discussed with pt's Same, as per "my is doing better, but not 100%", yesterday pt had hallucinations, said that he will keep this information writer informed about pt's progress. asked to bring kids to visit pt, staff educated to assist with that. No drooling observed/. clozaril was started 10/01/18, pt is currently on tapering dose of clozaril, with the plan to wean it off because patient was not improving on Clozaril. Diagnostic Results: Schizoaffective Disorder Medication Change: Yes (Clozaril decreased, Risperdal started) Medical Record Reviewed: Yes Consults ordered or reviewed: patient was seen by medical team as well as nephrology team see notes for more detailed information pt was seen by Hem/Onc pt was seen by ID team Neurology involved, discussed 10/14/2018 GI involved cardiology involved Mental Status Examination - Cognitive Function Orientation: Place Memory: Impaired Attention: Poor (some improvement) Concentration: Poor (some improvement) Association: Loose (some improvement) Fund of Knowledge: Poor - Mood Mood: Depressed ("I feel better") - Affect Affect: Constricted (but more reactive today) - Speech Speech: Appropriate - Formal Thought Process Formal Thought Process: Hallucinations (denied today), Delusions, Paranoia (pt is less paranoid), Loosening of associations (chronic) - Suicidal Ideation Suicidal Ideation: No - Homicidal Ideation Homicidal Ideation: No Goal/Treatment Plan - Goal/Treatment Plan Need for Continued Stay: Remain at risks for inpatient hospitalization, Severe depression anxiety, Discharge may exacerbated symptoms, Severe functional impairment Progress Toward Problem(s) and Goals/Treatment Plan: group, milieu and supportive tx (as tolerated) Clozaril 75mg po hs, will taper it down because it was not effective, pt is very hard to have blood work from, will benefit from risperda/invega Prozac d/c xanax d/c ambien d/c seroquel discontinued 10/09/2018 Twila Brownena was provided to patient on 09/08/18, no plan to resume Thorazine 50mg po and IM prn ECT #1 10/17/18, pt had about 15 sec of seizures ECT #2 10/20/18, pt had 17 seconds of seizures ECT #3 10/21/18, pt had about 37seconds of seizures ECT #4 10/22/18, pt had 23 seconds of motor/eeg seizures ECT #5 10/23/18 pt had about 20 seconds of motor/EEG seizures ECT #6 10/27/18 Pt had about 16 seconds of motor/EEG tz ECT #7 10/29/18 pt had about 16sec Most likely patient will need to have about 2 more ECT treatments neurology involved MRI, pt was not able to tolerate EEG, WNL ID and oncology involved GI follow up hem onc involved lard mixer involved consultation for discharge plan and social issues Family involvement, pt wanted her to participate in her care family meeting took place 09/19/[address] 10/15/18 CBC with [id number] no signs of a granulocytosis CBC with differential 10/16/18 no signs of agranulocytosis CBC with differential 10/21/18 no signs of agranulocytosis CBC with differential 10/28/18 no signs of agranulocytosis Patient is registered clozaril [facility] Follow up on labs Will monitor closely Pt was educated about risk/benefits and alternatives of medications, coping strategies (safety plan, suicide prevention), relapse prevention, importance of follow up with psychiatrist and therapist, stay away from drugs/alcohol/smoking Estimated Date of D/C: 10/31/18
[2018-10-29] MEDS: Magnesium Oxide 400 mg Tab UD PO SCH (13:07)
[2018-10-30] MEDS: Levothyroxine 100 MCG TAB PO SCH (05:28)
[2018-10-30] MEDS: Enoxaparin 40 mg Syringe SC SCH (08:26)
[2018-10-30] MEDS: Bacitracin Ointment 30 GM TUBE TOP SCH ×2 (09:37→16:01)
--- NOTE | 2018-10-30 14:19 | PCM.PYCHPN ---
Psychiatric Progress Note - Psychiatric Progress Note Patient seen today, length of contact: 30 minutes Patient Chief Complaint: "Thank God, I feel better, but at times I feel confused". Problems Identified/Issues Discussed: this writer producer attempted to discuss suicide/ homicide prevention, past psychiatric h/o, current psychiatric symptoms, medical problems, risk/benefits and alternatives of medications, medications compliance, coping strategies, substance abuse h/o, relapse prevention, importance of follow up with psychiatrist and therapist, discharge plan. Medical Problems: pt was dehydrated, but doing better dysphagia is better UTI, patient completed course of antibiotics urine analysis showed leukocyte esterase again on 10/01/2018, Infectious disease wants to observe patient without antibiotics, discussed with 10/10/18 neurology consult was called, pt is not improving for the past 3weeks CT scan at the time of admission 09/14/18 was WNL. Discussed with Dr. Deleon 10/14/2018: MRI of the brain was not able to tolerate, d/c by neurology discussed with 10/17/18, patient is cleared for ECT. EEG was WNL Diagnostic Results: 09/14/18 09:10 09/15/18 08:00 Lab Results 09/15/18 08:00: Sodium 140, Potassium 4.0, Chloride 102, Carbon Dioxide 28, Anion Gap 14, BUN 15, Creatinine 1.2, Est GFR ( Amer) 58, Est GFR (Non-Af Amer) 48, Random Glucose 97, Calcium 9.8 09/14/18 17:40: Urine Color Yellow, Urine Appearance Sl cloudy, Urine pH 6.0, Ur Specific [place] 1.010, Urine Protein Negative, Urine Glucose (UA) Negative, Urine Ketones Negative, Urine Blood Small H, Urine Nitrate Positive H, Urine Bilirubin Negative, Urine Urobilinogen 0.2, Ur Leukocyte Esterase Small H, Urine RBC 5 - 10, Urine WBC 20 - 25, Ur Epithelial Cells 10 - 12, Urine Bacteria Many 09/14/18 09:10: RPR Nonreactive 09/14/18 09:10: TSH 3rd Generation 5.59 H 09/14/18 09:10: Sodium 140, Potassium 4.0, Chloride 104, Carbon Dioxide 21, Anion Gap 18, BUN 15, Creatinine 1.6 H, Est GFR ( Amer) 42, Est GFR (Non- Af Amer) 35, Random Glucose 85, Calcium 10.0, Phosphorus 2.8, Magnesium 1.6 L, Total Bilirubin 0.5, AST 89 H D, ALT 57 H, Alkaline Phosphatase 88, Total Protein 8.0, Albumin 4.4, Globulin 3.6, Albumin/Globulin Ratio 1.2, Triglycerides 102, Cholesterol 234 H, LDL Cholesterol Direct 155 H, HDL Cholesterol 60 09/14/18 09:10: WBC 4.7 D, RBC 4.39, Hgb 12.4, Hct 37.8, MCV 86.1, MCH 28.2, MCHC 32.8, RDW 16.4 H, Plt Count 360, MPV 9.4, Gran % 50.8, Lymph % (Auto) 34.7, [place] % (Auto) 13.4 H, Eos % (Auto) 0.9 L, Baso % (Auto) 0.2, Gran # 2.39, Lymph # (Auto) 1.6, [place] # (Auto) 0.6, Eos # (Auto) 0.0, Baso # (Auto) 0.01 Microbiology 09/14/18 17:40 Urine Urine Culture - Preliminary Gram Negative [facility] Laboratory Results - last 24 hr 09/19/18 09:55 WBC 4.5 RBC 4.35 Hgb 12.2 Hct 38.3 MCV 88.0 MCH 28.0 MCHC 31.9 RDW 16.6 H Plt Count 318 MPV 9.6 Gran % 54.3 Lymph % (Auto) 30.0 [place] % (Auto) 14.8 H Eos % (Auto) 0.7 L Baso % (Auto) 0.2 Gran # 2.43 Lymph # (Auto) 1.3 [place] # (Auto) 0.7 H Eos # (Auto) 0.0 Baso # (Auto) 0.01 Abnormal Lab Results 09/22/18 09/22/18 07:30 07:30 WBC 3.4 L D RBC 4.34 Hgb 12.2 Hct 37.4 MCV 86.2 MCH 28.1 MCHC 32.6 RDW 16.5 H Plt Count 373 MPV 9.7 Sodium 141 Potassium 5.0 Chloride 107 Carbon Dioxide 25 Anion Gap 14 BUN 18 Creatinine 1.5 H Est GFR ( Amer) 45 Est GFR (Non-Af Amer) 37 Random Glucose 98 Calcium 10.2 Laboratory Results - last 72 hr 09/25/18 14:47 POC Glucose (mg/dL) 94 Vital Signs Temp Pulse Resp BP Pulse Ox 09/27/18 16:00 52 L 108/81 09/27/18 08:40 84 122/67 09/27/18 07:00 97.3 F L 84 18 122/67 09/26/18 08:04 121 H 136/114 H 09/26/18 07:26 98.2 F 54 L 22 136/114 H 09/25/18 09:08 80 124/70 09/24/18 16:00 93 H 112/74 09/24/18 09:17 97/50 L 09/24/18 07:20 97.1 F L 82 16 97/50 L 09/24/18 07:18 97.1 F L 82 20 97/50 L 09/23/18 16:00 86 110/67 09/23/18 06:49 97.7 F 77 20 114/69 09/22/18 16:00 83 103/57 L 09/22/18 12:26 97 H 110/72 09/21/18 10:21 90 116/71 09/21/18 10:15 98.4 F 90 20 116/71 99 09/20/18 15:45 100 H 95/70 L 09/20/18 10:04 93 H 146/96 H 09/20/18 06:48 98.1 F 79 16 98/60 L 09/19/18 16:00 60 116/88 09/19/18 07:28 97.3 F L 91 H 20 115/75 09/17/18 15:00 73 H 128/106 H 09/17/18 09:30 68 116/62 09/17/18 07:25 97.1 F L 80 18 92/58 L 09/16/18 16:00 102 H 120/81 09/16/18 09:47 104 H 124/99 H 09/16/18 07:17 98.0 F 87 18 98/59 L 09/15/18 09:07 103 H 106/70 09/15/18 07:00 97.8 F 105 H 19 86/60 L 09/14/18 16:28 90 139/118 H 09/14/18 07:00 97.9 F 60 17 115/72 09/13/18 08:30 114 H 20 129/100 H 09/13/18 07:00 98.5 F 55 L 22 169/114 H 09/13/18 06:50 55 L 169/114 H 09/12/18 16:11 97.2 F L 80 20 114/64 09/12/18 15:39 20 Abnormal Lab Results 09/29/18 19:14 WBC 4.8 RBC 4.34 Hgb 12.3 Hct 38.4 MCV 88.5 MCH 28.3 MCHC 32.0 RDW 16.7 H Plt Count 261 MPV 10.7 Gran % 39.9 L Lymph % (Auto) 42.0 H [place] % (Auto) 15.8 H Eos % (Auto) 1.9 Baso % (Auto) 0.4 Gran # 1.90 Lymph # (Auto) 2.0 [place] # (Auto) 0.8 H Eos # (Auto) 0.1 Baso # (Auto) 0.02 Abnormal Lab Results 10/01/18 10/01/18 10/01/18 07:50 07:50 07:50 WBC 3.2 L D RBC 4.39 Hgb 12.2 Hct 38.8 MCV 88.4 MCH 27.8 MCHC 31.4 RDW 16.7 H Plt Count 280 MPV 9.9 Sodium 141 Potassium 4.2 Chloride 108 H Carbon Dioxide 28 Anion Gap 10 BUN 16 Creatinine 1.1 Est GFR ( Amer) > 60 Est GFR (Non-Af Amer) 53 Random Glucose 98 Calcium 9.5 Thyroxine (T4) 8.4 TSH 3rd Generation 1.86 Cortisol AM Sample 10/01/18 07:50 WBC RBC Hgb Hct MCV MCH MCHC RDW Plt Count MPV Sodium Potassium Chloride Carbon Dioxide Anion Gap BUN Creatinine Est GFR ( Amer) Est GFR (Non-Af Amer) Random Glucose Calcium Thyroxine (T4) TSH 3rd Generation Cortisol AM Sample 19.5 Temp Pulse Resp BP Pulse Ox 97.9 F 113 H 20 105/72 99 10/03/18 07:17 10/03/18 09:46 10/03/18 07:17 10/03/18 09:46 09/21/18 10:15 Microbiology 10/06/18 12:17 Urine Culture - Final Urine Enterococcus Faecalis Temp Pulse Resp BP Pulse Ox 97.9 F 102 H 22 143/120 H 99 10/09/18 07:36 10/09/18 08:25 10/09/18 07:36 10/09/18 08:25 09/21/18 10:15 Laboratory Results - last 24 hr 10/09/18 09:30 WBC 5.4 D RBC 4.09 Hgb 11.3 L Hct 36.0 MCV 88.0 MCH 27.6 MCHC 31.4 RDW 16.8 H Plt Count 337 MPV 9.8 Gran % 63.5 Lymph % (Auto) 22.0 [place] % (Auto) 12.4 H Eos % (Auto) 1.9 Baso % (Auto) 0.2 Gran # 3.43 Lymph # (Auto) 1.2 [place] # (Auto) 0.7 H Eos # (Auto) 0.1 Baso # (Auto) 0.01 No signs of a granulocytosis Temp Pulse Resp BP Pulse Ox 97.9 F 63 20 128/91 H 99 10/10/18 07:31 10/10/18 09:43 10/10/18 07:31 10/10/18 09:43 09/21/18 10:15 Temp Pulse Resp BP Pulse Ox 97.9 F 88 16 73/49 L 99 10/14/18 06:59 10/14/18 10:09 10/14/18 06:59 10/14/18 10:09 09/21/18 10:15 Laboratory Results - last 24 hr 10/16/18 10/16/18 08:15 08:15 WBC 3.6 L D RBC 4.19 Hgb 11.7 L Hct 36.7 MCV 87.6 MCH 27.9 MCHC 31.9 RDW 16.9 H Plt Count 311 MPV 9.5 Gran % 54.0 Lymph % (Auto) 27.4 [place] % (Auto) 13.6 H Eos % (Auto) 4.7 Baso % (Auto) 0.3 Gran # 1.95 Lymph # (Auto) 1.0 L [place] # (Auto) 0.5 Eos # (Auto) 0.2 Baso # (Auto) 0.01 Sodium 143 Potassium 3.4 L Chloride 105 Carbon Dioxide 31 Anion Gap 11 BUN 17 Creatinine 0.9 Est GFR ( Amer) > 60 Est GFR (Non-Af Amer) > 60 Random Glucose 129 H Calcium 8.9 Phosphorus 3.3 Magnesium 2.5 H Total Bilirubin 0.3 AST 52 H ALT 46 Alkaline Phosphatase 87 Total Protein 7.9 Albumin 3.7 Globulin 4.2 Albumin/Globulin Ratio 0.9 L Triglycerides 129 Cholesterol 184 LDL Cholesterol Direct 114 HDL Cholesterol 41 Temp Pulse Resp BP Pulse Ox 98.0 F 73 20 113/90 99 10/16/18 06:56 10/16/18 06:56 10/16/18 06:56 10/16/18 06:56 09/21/18 10:15 Temp Pulse Resp BP Pulse Ox 98.4 F 99 H 18 113/68 96 10/17/18 14:15 10/17/18 14:15 10/17/18 14:15 10/17/18 14:15 10/17/18 14:15 Laboratory Results - last 24 hr 10/17/18 09:37 Urine HCG, Qual Negative Temp Pulse Resp BP Pulse Ox 98.2 F 100 H 16 135/76 100 10/20/18 11:21 10/20/18 11:21 10/20/18 11:21 10/20/18 11:21 10/20/18 11:21 Abnormal Lab Results 10/19/18 08:00 Procalcitonin 0.09 L Temp Pulse Resp BP Pulse Ox 98 F 102 H 14 104/66 95 10/22/18 11:55 10/22/18 11:55 10/22/18 11:55 10/22/18 11:55 10/22/18 11:55 DSM 5 Symptoms Update: Patient is a 48-year-old [place] female with a psychiatric history of Schizoaffective disorder, multiple prior psychiatric admissions both in [place] and the [place]~ most recently hospitalized at [facility] x6 months ago, who was transferred from the medical floor after being treated f rom 09/10/18-09/12/18 for dysphagia. Pt was presented with depression, disorganization, paranoia, moravian preoccupation as well as bizarre behavior. On the medical floor patient required 1:1 because she was caught drinking her urine out of the toilet. Patient was trying to punish herself because she didn't deserve to live. Patient attends outpatient psychiatric treatment of [facility]. Her most recent follow up was on September 08, 2018. Patient has been compliant with Abilify 10 mg daily, Prozac 10 mg daily Seroquel 100 mg BID as well as Abileanne Hartman last injected September 08, 2018. pt was seen at the treatment team room meeting, utilized [employer] translation system for interpretation, ID #[id number]. Patient presented more alert, patient complained that she feels "confused at times", patient reported that her mood is better, patient reported that she wants to go back home with her family, thought process seems to be more logical and organized but at times patient appears to be circumstantial. Patient denied hearing voices, denied seeing things, denied paranoid ideations. As per staff patient needed to have as needed Thorazine IM because patient was tearful, was not following directions overnight, appears to be psychotic. As per staff, today patient was walking 1 of the PCP from the day area. This writer producer will increase the dose of Risperdal, patient is on tapering dose of Clozaril. With patient on 10/29/2018, as per patient presents very well, patient is scheduled for discharge tomorrow but if patient will continue to exhibit similar behavior will postpone the discharge. Patient is scheduled for ECT on 10/31/2018. BL ECT treatment #1 10/17/18, tolerated that well BL ECT treatment #2 10/20/18 tolerated it well BL ECT treatment #3 10/21/18 tolerated it well, but was restless after the procedure, pt needed to have 4xtreatments in order to have productive seizures. BL ECT treatment #4 10/22/18, pt needed to have 3treatments in order to have therapeutic seizures. BL ECT treatment #5 10/23/18, pt needed to have 2ECT tx in order to have therapeutic seizures. 150% 0.5ms BL, 50Hz 8sec, 320mC, pt had about 20sec of motor seizures which was considered to be 66%likely adequate therapeutic seizures by MECTA analysis. BL ECT treatment #6 10/27/18, pt had adequate seizures at 150% 0.30ms BL, 70Hz, 8sec, charge 269mC, energy 47.3J, pt had 16sec of motor and EEG seizures, which was considered to be 53% adequate. BL ECT treatment #7 10/29/18, pt needed to have 3tx in order to have adequate seizures. pt had adequate seizures at 0.5ms BL, 50Hz 8sec, 320mC, pt had about 16sec of motor seizures which was considered to be 64%likely adequate therapeutic seizures by MECTA analysis. pt tolerated treatment well, treatments were spread with the interval of 25- 30sec. last inpatient ECT scheduled for 10/31/18, then will be d/c back home, with the plan to give ECT tx weekly, after 4xtx, every other week for the next month, after that once a month tx. Discussed with 10/17/2018, EEG within normal limits, no need for pa tient to have MRI, patient was cleared for ECT. pt was seen by wastewater treatment plant instructor who cleared pt for ECT pt was seen by PMD , pt was cleared for ECT GI team was called for f/u, diet was advanced discussed with ID 10/10/18, wants to observe patient with no antibiotics. Hem/onc was involved because patient has history of breast cancer. 10/15/[address], pt and her (next of kin) both agreed for ECT procedure, see 10/15/18 note for more detailed information. 10/27/18 discussed with pt's Same, as per "my is doing better, but not 100%", yesterday pt had hallucinations, said that he will keep this writer producer informed about pt's progress. asked to bring kids to visit pt, staff educated to assist with that. No drooling observed/. clozaril was started 10/01/18, pt is currently on tapering dose of clozaril, with the plan to wean it off because patient was not improving on Clozaril. Diagnostic Results: Schizoaffective Disorder Medication Change: Yes (Clozaril decreased, Risperdal increased) Medical Record Reviewed: Yes Consults ordered or reviewed: patient was seen by medical team as well as nephrology team see notes for more detailed information pt was seen by Hem/Onc pt was seen by ID team Neurology involved, discussed 10/14/2018 GI involved cardiology involved Mental Status Examination - Cognitive Function Orientation: Place Memory: Impaired Attention: Poor (some improvement) Concentration: Poor (some improvement) Association: Loose (some improvement) Fund of Knowledge: Poor - Mood Mood: Depressed ("I feel better") - Affect Affect: Constricted (but more reactive today) - Speech Speech: Appropriate - Formal Thought Process Formal Thought Process: Hallucinations (denied today), Delusions, Paranoia (pt is less paranoid), Loosening of associations (chronic) - Suicidal Ideation Suicidal Ideation: No - Homicidal Ideation Homicidal Ideation: No Goal/Treatment Plan - Goal/Treatment Plan Need for Continued Stay: Remain at risks for inpatient hospitalization, Severe depression anxiety, Discharge may exacerbated symptoms, Severe functional impairment Progress Toward Problem(s) and Goals/Treatment Plan: group, milieu and supportive tx (as tolerated) Clozaril 75mg po hs, will taper it down because it was not effective, pt is very hard to have blood work from, will benefit from risperda/invega Prozac d/c xanax d/c ambien d/c seroquel discontinued 10/09/2018 Twila Hartman was provided to patient on 09/08/18, no plan to resume Thorazine 50mg po and IM prn ECT #1 10/17/18, pt had about 15 sec of seizures ECT #2 10/20/18, pt had 17 seconds of seizures ECT #3 10/21/18, pt had about 37seconds of seizures ECT #4 10/22/18, pt had 23 seconds of motor/eeg seizures ECT #5 10/23/18 pt had about 20 seconds of motor/EEG seizures ECT #6 10/27/18 Pt had about 16 seconds of motor/EEG tz ECT #7 10/29/18 pt had about 16sec ECT #8 was scheduled for 10/31/2018 neurology involved MRI, pt was not able to tolerate EEG, WNL ID and oncology involved GI follow up hem onc involved wastewater treatment plant instructor involved consultation for discharge plan and social issues Family involvement, pt wanted her to participate in her care family meeting took place 09/19/[address] 10/15/18 CBC with ccojwhhjiqua08/6/2018 no signs of a granulocytosis CBC with differential 10/16/18 no signs of agranulocytosis CBC with differential 10/21/18 no signs of agranulocytosis CBC with differential 10/28/18 no signs of agranulocytosis Patient is registered clozaril [facility] Follow up on labs Will monitor closely Pt was educated about risk/benefits and alternatives of medications, coping strategies (safety plan, suicide prevention), relapse prevention, importance of follow up with psychiatrist and therapist, stay away from drugs/alcohol/smoking Estimated Date of D/C: 10/31/18
[2018-10-30] MEDS ORDERED: Home Med 1 UNIT SC SCH (16:00)
[2018-10-30] MEDS: Magnesium Oxide 400 mg Tab UD PO SCH (16:05)
[2018-10-31] MEDS ORDERED: Pantoprazole 40 mg EC Tab PO SCH (06:00)
--- NOTE | 2018-10-31 08:42 | PN ---
DATE: 10/29/2018 SUBJECTIVE: The patient has been going for electroconvulsive therapy, ECG, seems to be responding very well today and seems stable mentally. PHYSICAL EXAMINATION: VITAL SIGNS: She is afebrile, heart rate 96, blood pressure 115/69, respirations 18. She is stable otherwise. No saturation done. HEAD AND NECK: Normal, no JVD, no thyromegaly. CHEST: Clear bilaterally. CARDIAC: First sound and second sounds are normal. ABDOMEN: Soft, obese, nontender. EXTREMITIES: No edema, except right upper extremity lymphedema. NEUROLOGIC: She is normal. LABORATORY DATA: Last lab; white count 5.5, hemoglobin 9.8, hematocrit 31.4, and her platelets are good at 357. There is no laboratory done for chemistry. Procalcitonin was done before at 0.09. IMPRESSION AND PLAN: 1. Schizoaffective disorder. Continue antipsychotic therapy, Clozaril and Thorazine p.r.n. and since decreasing Clozaril gradually and other medications gradually is doing okay. She is on Risperdal 1 mg in the morning and at night. We will continue current therapy. 2. Hypothyroidism, stable on 100 mcg. 3. Dysphagia, secondary to radiation therapy. 4. Breast cancer with right breast mastectomy and right arm lymphedema. Continue current therapy. Follow up clinically. Igor Ca MD
[2018-10-31] MEDS ORDERED: Propofol 10 mg/ml Inj (20 ML) ONE (09:12)
[2018-10-31] MEDS ORDERED: Succinylcholine 200 mg/10 ml Inj IV ONE (09:13)
[2018-10-31] MEDS ORDERED: Sodium Chloride 0.9% 1,000 ML IV SCH (09:45)
[2018-10-31 10:28] VITALS: O2SAT 98
[2018-10-31 11:18] VITALS: BP 141/117; PULSE 86; RESP 20; TEMP 100.6
[2018-10-31] MEDS: Bacitracin Ointment 30 GM TUBE TOP SCH (11:21)
[2018-10-31] MEDS: Enoxaparin 40 mg Syringe SC SCH (11:21)
[2018-10-31] MEDS: Magnesium Oxide 400 mg Tab UD PO SCH (11:22)
[2018-10-31] MEDS: Levothyroxine 100 MCG TAB PO SCH (11:27)
--- NOTE | 2018-10-31 12:26 | CP.PCM.PN ---
Subjective - Date & Time of Evaluation Date of Evaluation: 10/31/18 Time of Evaluation: 08:00 - Subjective Subjective: No fevers overnight, not in distress. Objective - Vital Signs/Intake and Output Vital Signs (last 24 hours): Temp Pulse Resp BP Pulse Ox 100.6 F H 86 20 141/117 H 98 10/31/18 11:17 10/31/18 11:17 10/31/18 11:17 10/31/18 11:17 10/31/18 10:23 Intake and Output: 10/31/18 10/31/18 06:59 18:59 Intake Total 75 Balance 75 - Medications Medications: Current Medications Acetaminophen (Tylenol 325mg Tab) 650 mg PO Q4 PRN PRN Reason: Pain, moderate (4-7) Last Admin: 10/24/18 12:12 Dose: 650 mg Al Hydrox/Mg Hydrox/Simethicone (Maalox Plus 30 Ml) 30 ml PO DAILY PRN PRN Reason: Upset Stomach Bacitracin (Bacitracin) 1 gm TOP BID [facility] Last Admin: 10/31/18 11:21 Dose: Not Given Chlorpromazine (Thorazine) 50 mg IM Q6H PRN; Protocol PRN Reason: Agitation Last Admin: 10/30/18 00:31 Dose: 50 mg Chlorpromazine (Thorazine) 50 mg PO Q6H PRN; Protocol PRN Reason: psychosis/agitation Last Admin: 10/30/18 09:36 Dose: 50 mg Enoxaparin Sodium (Lovenox) 40 mg SC DAILY [facility]; Protocol Last Admin: 10/31/18 11:21 Dose: 40 mg Folic Acid (Folic Acid) 1 mg PO DAILY [facility] Last Admin: 10/31/18 11:26 Dose: 1 mg Home Med (Home Med) 0.8 unit SC Q2W [facility] Last Admin: 10/30/18 16:22 Dose: 0.8 unit Levothyroxine Sodium (Synthroid) 100 mcg PO 0600 [facility] Last Admin: 10/31/18 11:27 Dose: 100 mcg Magnesium Hydroxide (Milk Of Magnesia) 30 ml PO DAILY PRN PRN Reason: Constipation Magnesium Oxide (Mag-Ox) 400 mg PO BID [facility] Last Admin: 10/31/18 11:22 Dose: 400 mg Metoprolol Tartrate (Lopressor) 25 mg PO BRKDIN [facility] Last Admin: 10/31/18 11:26 Dose: 25 mg Ondansetron HCl (Zofran Inj) 4 mg IVP ONCE PRN PRN Reason: Nausea/Vomiting Pantoprazole Sodium (Protonix Ec Tab) 40 mg PO 0600 [facility] Last Admin: 10/31/18 11:26 Dose: 40 mg Risperidone (Risperdal Tab) 2 mg PO HS DAT; Protocol Last Admin: 10/30/18 21:06 Dose: 2 mg Risperidone (Risperdal Tab) 2 mg PO BID DAT; Protocol Last Admin: 10/31/18 11:26 Dose: 2 mg Saliva Substitute (Saliva Substitute) 0 ml PO TID PRN PRN Reason: Dry mouth Last Admin: 10/04/18 13:41 Dose: 1 ml - Labs Labs: 10/28/18 10:24 10/21/18 07:30 - Constitutional Appears: Non-toxic - Head Exam Head Exam: NORMAL INSPECTION Assessment and Plan - Assessment and Plan (Free Text) Plan: Assessment S/P treatment for UTI history asymptomatic bacteriuria with E. faecalis HTN breast cancer S/P radiation therapy psychosis dyslipidemia Plan completed course of Augmentin will continue to monitor clinically off antibiotics since she is at risk for infections discussed with Dr. Leon previously
--- NOTE | 2018-10-31 14:36 | PCM.PYCHDC ---
Mental Status Examination - Mental Status Examination Orientation: Person, Place, Situation, Time Memory: Intact Mood: Neutral Affect: Broad (And mood congruent) Speech: Appropriate Attention: Poor (With much improvement) Concentration: Poor (With much improvement) Association: Loose (but with much improvement) Fund of Knowledge: WNL Formal Thought Process: Other (pt has chronic psychosis, residual symptoms of schizophrenia) Description of patient's judgement and insight: Pt has improved insight into mental and medical illness, pt was compliant with medications and unit rules and regulations, pt was going to groups, was calm, cooperative, socially appropriate, no behavioral incidents, no agitation, no aggression. Psychotic Thoughts and Behaviors: Pt denied v/a/t hallucinations, denied paranoid ideations, pt does not appear to be psychotic, and thought process is goal directed. Suicidal Ideation: No Current Homicidal Ideation?: No Plan: pt adamantly denied thoughts of harming self or others denied intent or plan. Discharge Summary - Discharge Note Reason for Hospitalization: psychosis, disorganized thoughts and behavior Psychiatric History (includes Medical, Family, Personal Hx): Patient has history of treatment resistant schizophrenia Laboratory Data: 10/28/18 10:24 10/21/18 07:30 Lab Results 10/28/18 10:24: WBC 5.5 D, RBC 3.56, Hgb 9.8 L, Hct 31.4 L, MCV 88.2, MCH 27.5, MCHC 31.2, RDW 17.7 H, Plt Count 357, MPV 8.9, Gran % 42.3 L, Lymph % (Auto) 44.6 H, [place] % (Auto) 6.7 H, Eos % (Auto) 6.0 H, Baso % (Auto) 0.4, Gran # 2.35, Lymph # (Auto) 2.5, Charl[place] # (Auto) 0.4, Eos # (Auto) 0.3, Baso # (Auto) 0.02 10/21/18 07:30: Sodium 141, Potassium 4.0, Chloride 112 H, Carbon Dioxide 26, Anion Gap 7 L, BUN 14, Creatinine 0.8, Est GFR ( Amer) > 60, Est GFR (Non-Af Amer) > 60, Random Glucose 95, Calcium 8.3 L, Phosphorus 3.5, Magnesium 2.0, Total Bilirubin 0.2, AST 33, ALT 44, Alkaline Phosphatase 73, Total Protein 6.1, Albumin 2.7 L, Globulin 3.4, Albumin/Globulin Ratio 0.8 L 10/21/18 07:30: WBC 3.6 L D, RBC 3.64, Hgb 10.0 L, Hct 31.6 L, MCV 86.8, MCH 27.5, MCHC 31.6, RDW 17.6 H, Plt Count 274, MPV 8.8, Gran % 40.4 L, Lymph % (Auto) 37.0 H, Charlton % (Auto) 17.8 H, Eos % (Auto) 4.2, Baso % (Auto) 0.6, Gran # 1.45, Lymph # (Auto) 1.3, Charl[place] # (Auto) 0.6, Eos # (Auto) 0.2, Baso # (Auto) 0.02 10/19/18 08:00: Procalcitonin 0.09 L 10/19/18 07:30: Sodium 140, Potassium 3.9, Chloride 106, Carbon Dioxide 27, Anion Gap 12, BUN 17, Creatinine 0.9, Est GFR ( Amer) > 60, Est GFR (Non- Af Amer) > 60, Random Glucose 114 H, Calcium 8.6, Phosphorus 2.6, Magnesium 2.2 10/19/18 07:30: Valproic Acid 41 L 10/18/18 21:30: Urine Color Yellow, Urine Appearance Sl cloudy, Urine pH 7.0, Ur Specific [place] 1.020, Urine Protein 30 H, Urine Glucose (UA) Negative, Urine Ketones 15 H, Urine Blood Trace-intact H, Urine Nitrate Negative, Urine Biliru bin Small H, Urine Urobilinogen 1.0 H, Ur Leukocyte Esterase Negative, Urine RBC 2 - 5, Urine WBC 5 - 10, Ur Epithelial Cells 6 - 8, Urine Bacteria Many 10/18/18 18:53: Influenza Typ A,B (EIA) Negative for flu a/b 10/17/18 23:30: WBC 9.7 D, RBC 3.71, Hgb 10.2 L, Hct 31.7 L, MCV 85.4, MCH 27.5, MCHC 32.2, RDW 16.6 H, Plt Count 267, MPV 9.4, Gran % 77.9 H, Lymph % (Auto) 7.3 L, Charl[place] % (Auto) 14.3 H, Eos % (Auto) 0.4 L, Baso % (Auto) 0.1, Gran # 7.54 H, Lymph # (Auto) 0.7 L, Charl[place] # (Auto) 1.4 H, Eos # (Auto) 0.0, Baso # (Auto) 0.01 10/17/18 09:37: Urine HCG, Qual Negative 10/16/18 08:15: Hemoglobin A1c 5.6 10/16/18 08:15: Sodium 143, Potassium 3.4 L, Chloride 105, Carbon Dioxide 31, Anion Gap 11, BUN 17, Creatinine 0.9, Est GFR ( Amer) > 60, Est GFR (Non- Af Amer) > 60, Random Glucose 129 H, Calcium 8.9, Phosphorus 3.3, Magnesium 2.5 H, Total Bilirubin 0.3, AST 52 H, ALT 46, Alkaline Phosphatase 87, Total Protein 7.9, Albumin 3.7, Globulin 4.2, Albumin/Globulin Ratio 0.9 L, Triglycerides 129, Cholesterol 184, LDL Cholesterol Direct 114, HDL Cholesterol 41 10/16/18 08:15: WBC 3.6 L D, RBC 4.19, Hgb 11.7 L, Hct 36.7, MCV 87.6, MCH 27.9, MCHC 31.9, RDW 16.9 H, Plt Count 311, MPV 9.5, Gran % 54.0, Lymph % (Auto) 27.4, Charlton % (Auto) 13.6 H, Eos % (Auto) 4.7, Baso % (Auto) 0.3, Gran # 1.95, Lymph # (Auto) 1.0 L, Charl[place] # (Auto) 0.5, Eos # (Auto) 0.2, Baso # (Auto) 0.01 10/13/18 13:15: Ammonia 27 10/10/18 08:00: Plasma Metanephrine 28, Plasma Normetanephrine 494 H, Plas Total Metaneph 522 H 10/10/18 08:00: Sodium 143, Potassium 3.9, Chloride 107, Carbon Dioxide 32, Anion Gap 9 L, BUN 12, Creatinine 0.8, Est GFR ( Amer) > 60, Est GFR (Non-Af Amer) > 60, Random Glucose 105, Calcium 9.0 10/09/18 09:30: WBC 5.4 D, RBC 4.09, Hgb 11.3 L, Hct 36.0, MCV 88.0, MCH 27.6, MCHC 31.4, RDW 16.8 H, Plt Count 337, MPV 9.8, Gran % 63.5, Lymph % (Auto) 22.0, Charlton % (Auto) 12.4 H, Eos % (Auto) 1.9, Baso % (Auto) 0.2, Gran # 3.43, Lymph # (Auto) 1.2, Charl[place] # (Auto) 0.7 H, Eos # (Auto) 0.1, Baso # (Auto) 0.01 10/06/18 12:17: Urine Color Yellow, Urine Appearance Sl cloudy, Urine pH 6.5, Ur Specific [place] 1.025, Urine Protein Trace H, Urine Glucose (UA) Negative, Urine Ketones 15 H, Urine Blood Trace-intact H, Urine Nitrate Negative, Urine Bilirubin Negative, Urine Urobilinogen 0.2, Ur Leukocyte Esterase Small H, Urine RBC 0 - 2, Urine WBC 10 - 15, Ur Epithelial Cells 4 - 5, Urine Bacteria Large 10/06/18 05:00: HIV 1&2 Ag/Ab, 4th Gen Nonreactive 10/02/18 05:00: Urine Color Yellow, Urine Appearance Clear, Urine pH 6.5, Ur Specific [place] 1.010, Urine Protein Negative, Urine Glucose (UA) Negative, Urine Ketones Negative, Urine Blood Moderate H, Urine Nitrate Negative, Urine Bilirubin Negative, Urine Urobilinogen 0.2, Ur Leukocyte Esterase Small H, Urine RBC 0 - 2, Urine WBC 5 - 10, Ur Epithelial Cells 3 - 4, Urine Bacteria Many 10/01/18 07:50: Cortisol AM Sample 19.5 10/01/18 07:50: Sodium 141, Potassium 4.2, Chloride 108 H, Carbon Dioxide 28, Anion Gap 10, BUN 16, Creatinine 1.1, Est GFR ( Amer) > 60, Est GFR (Non- Af Amer) 53, Random Glucose 98, Calcium 9.5 10/01/18 07:50: WBC 3.2 L D, RBC 4.39, Hgb 12.2, Hct 38.8, MCV 88.4, MCH 27.8, MCHC 31.4, RDW 16.7 H, Plt Count 280, MPV 9.9 10/01/18 07:50: Thyroxine (T4) 8.4, TSH 3rd Generation 1.86 09/29/18 19:14: WBC 4.8, RBC 4.34, Hgb 12.3, Hct 38.4, MCV 88.5, MCH 28.3, MCHC 32.0, RDW 16.7 H, Plt Count 261, MPV 10.7, Gran % 39.9 L, Lymph % (Auto) 42.0 H, Charl[place] % (Auto) 15.8 H, Eos % (Auto) 1.9, Baso % (Auto) 0.4, Gran # 1.90, Lymph # (Auto) 2.0, Charl[place] # (Auto) 0.8 H, Eos # (Auto) 0.1, Baso # (Auto) 0.02 09/25/18 14:47: POC Glucose (mg/dL) 94 09/24/18 09:35: Sodium 140, Potassium 3.9, Chloride 106, Carbon Dioxide 26, Anion Gap 11, BUN 14, Creatinine 1.1, Est GFR ( Amer) > 60, Est GFR (Non- Af Amer) 53, Random Glucose 113 H, Calcium 9.3 09/22/18 07:30: WBC 3.4 L D, RBC 4.34, Hgb 12.2, Hct 37.4, MCV 86.2, MCH 28.1, MCHC 32.6, RDW 16.5 H, Plt Count 373, MPV 9.7 09/22/18 07:30: Sodium 141, Potassium 5.0, Chloride 107, Carbon Dioxide 25, Anion Gap 14, BUN 18, Creatinine 1.5 H, Est GFR ( Amer) 45, Est GFR (Non- Af Amer) 37, Random Glucose 98, Calcium 10.2 09/19/18 09:55: WBC 4.5, RBC 4.35, Hgb 12.2, Hct 38.3, MCV 88.0, MCH 28.0, MCHC 31.9, RDW 16.6 H, Plt Count 318, MPV 9.6, Gran % 54.3, Lymph % (Auto) 30.0, [place] % (Auto) 14.8 H, Eos % (Auto) 0.7 L, Baso % (Auto) 0.2, Gran # 2.43, Lymph # (Auto) 1.3, Charl[place] # (Auto) 0.7 H, Eos # (Auto) 0.0, Baso # (Auto) 0.01 09/16/18 07:45: Sodium 140, Potassium 4.4, Chloride 103, Carbon Dioxide 29, Anion Gap 12, BUN 17, Creatinine 1.1, Est GFR ( Amer) > 60, Est GFR (Non- Af Amer) 53, Random Glucose 88, Calcium 9.5, Total Bilirubin 0.2, AST 58 H D, ALT 49, Alkaline Phosphatase 77, Total Protein 7.7, Albumin 4.1, Globulin 3.6, Albumin/Globulin Ratio 1.1 09/15/18 08:00: Sodium 140, Potassium 4.0, Chloride 102, Carbon Dioxide 28, Anion Gap 14, BUN 15, Creatinine 1.2, Est GFR ( Amer) 58, Est GFR (Non-Af Amer) 48, Random Glucose 97, Calcium 9.8 09/14/18 17:40: Urine Color Yellow, Urine Appearance Sl cloudy, Urine pH 6.0, Ur Specific [place] 1.010, Urine Protein Negative, Urine Glucose (UA) Negative, Urine Ketones Negative, Urine Blood Small H, Urine Nitrate Positive H, Urine Bilirubin Negative, Urine Urobilinogen 0.2, Ur Leukocyte Esterase Small H, Urine RBC 5 - 10, Urine WBC 20 - 25, Ur Epithelial Cells 10 - 12, Urine Bacteria Many 09/14/18 09:10: RPR Nonreactive 09/14/18 09:10: TSH 3rd Generation 5.59 H 09/14/18 09:10: Sodium 140, Potassium 4.0, Chloride 104, Carbon Dioxide 21, Anion Gap 18, BUN 15, Creatinine 1.6 H, Est GFR ( Amer) 42, Est GFR (Non- Af Amer) 35, Random Glucose 85, Calcium 10.0, Phosphorus 2.8, Magnesium 1.6 L, Total Bilirubin 0.5, AST 89 H D, ALT 57 H, Alkaline Phosphatase 88, Total Protein 8.0, Albumin 4.4, Globulin 3.6, Albumin/Globulin Ratio 1.2, Triglycerides 102, Cholesterol 234 H, LDL Cholesterol Direct 155 H, HDL Cholesterol 60 09/14/18 09:10: WBC 4.7 D, RBC 4.39, Hgb 12.4, Hct 37.8, MCV 86.1, MCH 28.2, MCHC 32.8, RDW 16.4 H, Plt Count 360, MPV 9.4, Gran % 50.8, Lymph % (Auto) 34.7, [place] % (Auto) 13.4 H, Eos % (Auto) 0.9 L, Baso % (Auto) 0.2, Gran # 2.39, Lymph # (Auto) 1.6, [place] # (Auto) 0.6, Eos # (Auto) 0.0, Baso # (Auto) 0.01 Vital Signs Temp Pulse Resp BP Pulse Ox 10/31/18 11:17 100.6 F H 86 20 141/117 H 10/31/18 10:23 98 F 78 12 102/59 L 98 10/31/18 10:08 98 F 81 12 97/51 L 95 10/31/18 09:53 98 F 88 12 97/64 L 95 10/31/18 09:38 98 F 95 H 12 98/62 L 97 10/31/18 08:45 98.4 F 60 18 103/59 L 99 10/31/18 07:13 98.2 F 84 16 90/58 L 10/30/18 16:20 119 H 118/74 10/29/18 17:17 96 H 111/66 10/29/18 16:00 96 H 111/66 10/29/18 13:00 93 H 93/62 L 10/29/18 12:45 93 H 17 93/62 L 10/29/18 12:30 97 F L 80 17 116/72 98 10/29/18 12:15 97 F L 82 15 113/71 98 10/29/18 12:00 97 F L 78 17 114/70 98 10/29/18 11:45 97 F L 85 16 115/77 98 10/29/18 11:30 97 F L 80 20 122/73 97 10/29/18 10:15 97 F L 80 20 99/55 L 97 10/29/18 08:30 98.2 F 76 20 113/72 10/29/18 06:20 98.2 F 76 20 113/72 10/28/18 17:55 84 100/64 10/28/18 17:50 84 16 100/64 10/28/18 10:54 84 107/70 10/28/18 07:22 97.0 F L 84 20 107/70 10/27/18 17:18 68 107/68 10/27/18 13:22 111 H 105/68 10/27/18 13:00 111 H 17 105/68 10/27/18 12:43 111 H 17 105/68 10/27/18 12:22 98.8 F 99 H 16 114/78 99 10/27/18 12:07 98.8 F 105 H 16 118/69 99 10/27/18 11:52 98.8 F 100 H 15 104/69 99 10/27/18 11:37 98.8 F 100 H 15 100/66 99 10/27/18 11:22 98.8 F 98 H 15 110/68 97 10/27/18 10:35 98.8 F 102 H 20 99/67 L 94 L 10/27/18 09:00 98 F 94 H 16 100/55 L 10/27/18 07:17 98.3 F 94 H 20 100/55 L 10/26/18 16:41 102 H 94/60 L 10/26/18 05:44 98.6 F 90 20 97/59 L 10/25/18 16:09 109 H 102/61 10/25/18 16:00 109 H 102/61 10/25/18 08:00 100 H 20 111/59 L 10/25/18 07:30 102 H 73/33 L 10/25/18 07:10 99.0 F 102 H 16 73/33 L 10/24/18 16:23 105 H 97/62 L 10/24/18 08:02 89/57 L 10/24/18 06:00 98.9 F 93 H 89/57 L 18 L 10/23/18 18:09 90 107/69 10/23/18 14:29 88 114/78 10/23/18 14:06 98.0 F 78 22 100/74 10/23/18 14:00 98 F 78 22 100/74 10/23/18 13:06 88 20 114/78 10/23/18 12:49 98.8 F 806 H 17 111/74 98 10/23/18 12:34 98 F 110 H 16 117/72 98 12/20/18 12:19 98 F 108 H 16 108/61 97 18 10:45 98 F 100 H 20 115/75 18 08:19 97.7 F 100 H 17 101/60 18 06:45 97.7 F 100 H 18 101/60 18 17:57 100 H 99/60 L 18 16:00 100 H 99/60 L 18 12:26 107 H 18 128/76 10/22/18 11:55 98 F 102 H 14 104/66 95 10/22/18 11:40 98 F 102 H 14 103/66 95 18 11:25 98 F 105 H 14 108/72 95 10/22/18 10:47 98.5 F 93 H 18 94/73 L 95 10/22/18 10:35 105 H 88/52 L 10/22/18 10:19 99.2 F 105 H 18 88/52 L 10/22/18 07:05 99.2 F 105 H 20 88/52 L 18 19:07 78 101/75 18 16:00 78 101/75 18 12:26 107 H 96/53 L 18 11:20 98.3 F 109 H 17 111/74 98 18 11:05 98.3 F 105 H 19 110/71 98 18 10:50 98.3 F 109 H 19 105/64 98 10/21/18 09:40 98.7 F 71 20 87/53 L 94 L 18 09:30 99.5 F 89 18 83/48 L 18/18 06:43 99.5 F 89 83/48 L 18 L 10/20/18 17:29 78 106/82 10/20/18 16:17 78 20 106/82 18 12:00 97 H 18 104/66 18 11:21 98.2 F 100 H 16 135/76 100 18 11:06 98.2 F 105 H 16 124/77 100 10/20/18 10:51 98.2 F 112 H 16 134/81 100 10/20/18 10:15 98.2 F 94 H 16 89/58 L 98 10/20/18 10:00 98.2 F 86 18 110/82 10/19/18 17:46 120 H 120/83 10/19/18 09:18 70 120/70 10/18/18 09:03 64 115/65 10/17/18 23:53 98.8 F 10/17/18 23:48 98.8 F 10/17/18 22:53 102.9 F H 10/17/18 21:45 102.9 F H 10/17/18 16:01 112 H 109/62 10/17/18 14:15 98.4 F 99 H 18 113/68 96 10/17/18 14:00 98.4 F 94 H 16 119/61 96 10/17/18 13:45 98.4 F 98 H 16 113/64 96 10/17/18 12:53 98.2 F 225 H 20 128/71 100 10/16/18 06:56 98.0 F 73 20 113/90 10/15/18 17:38 84 106/59 L 10/15/18 16:00 84 104/59 L 10/15/18 09:44 83 101/62 10/15/18 07:00 98.0 F 83 20 101/62 10/14/18 18:43 99 H 124/66 10/14/18 16:00 99 H 122/66 10/14/18 10:09 88 73/49 L 10/14/18 06:59 97.9 F 88 16 73/49 L 10/13/18 18:30 104 H 115/66 10/13/18 09:52 120 H 123/80 10/11/18 22:46 82 116/72 10/11/18 19:10 82 111/66 10/11/18 08:26 104 H 100/78 10/11/18 07:19 98.0 F 104 H 20 100/78 10/10/18 09:43 63 128/91 H 10/10/18 07:31 97.9 F 63 20 128/91 H 10/09/18 17:27 80 121/92 H 10/09/18 16:00 80 121/92 H 10/09/18 13:37 115 H 107/73 10/09/18 08:25 102 H 143/120 H 10/09/18 07:36 97.9 F 102 H 22 143/120 H 10/08/18 07:06 97.9 F 108 H 20 144/87 10/06/18 08:52 92 H 128/89 10/06/18 07:26 98.0 F 115 H 20 135/113 H 10/05/18 16:35 96 H 129/81 10/05/18 10:15 69 158/92 H 10/04/18 09:22 80 134/69 10/04/18 07:00 97.5 F L 80 18 134/69 10/03/18 16:00 95 H 100/71 10/03/18 09:46 113 H 105/72 10/03/18 07:17 97.9 F 113 H 20 105/70 10/02/18 07:46 115 H 127/105 H 10/02/18 07:13 99.5 F 115 H 20 127/105 H 10/01/18 15:33 82 138/116 H 10/01/18 08:18 87 101/72 10/01/18 07:11 97.5 F L 87 20 101/72 09/30/18 16:00 91 H 104/66 09/30/18 07:18 97.9 F 75 20 116/79 09/29/18 10:38 102 H 126/107 H 09/29/18 07:00 97.3 F L 106 H 16 126/107 H 09/28/18 16:00 103 H 125/68 09/27/18 16:00 52 L 108/81 09/27/18 08:40 84 122/67 09/27/18 07:00 97.3 F L 84 18 122/67 09/26/18 08:04 121 H 136/114 H 09/26/18 07:26 98.2 F 54 L 22 136/114 H 09/25/18 09:08 80 124/70 09/24/18 16:00 93 H 112/74 09/24/18 09:17 97/50 L 09/24/18 07:20 97.1 F L 82 16 97/50 L 09/24/18 07:18 97.1 F L 82 20 97/50 L 09/23/18 16:00 86 110/67 09/23/18 06:49 97.7 F 77 20 114/69 09/22/18 16:00 83 103/57 L 09/22/18 12:26 97 H 110/72 09/21/18 10:21 90 116/71 09/21/18 10:15 98.4 F 90 20 116/71 99 09/20/18 15:45 100 H 95/70 L 09/20/18 10:04 93 H 146/96 H 09/20/18 06:48 98.1 F 79 16 98/60 L 09/19/18 16:00 60 116/88 09/19/18 07:28 97.3 F L 91 H 20 115/75 09/17/18 15:00 73 H 128/106 H 09/17/18 09:30 68 116/62 09/17/18 07:25 97.1 F L 80 18 92/58 L 09/16/18 16:00 102 H 120/81 09/16/18 09:47 104 H 124/99 H 09/16/18 07:17 98.0 F 87 18 98/59 L 09/15/18 09:07 103 H 106/70 09/15/18 07:00 97.8 F 105 H 19 86/60 L 09/14/18 16:28 90 139/118 H 09/14/18 07:00 97.9 F 60 17 115/72 09/13/18 08:30 114 H 20 129/100 H 09/13/18 07:00 98.5 F 55 L 22 169/114 H 09/13/18 06:50 55 L 169/114 H 09/12/18 16:11 97.2 F L 80 20 114/64 09/12/18 15:39 20 Consultations:: List each consultation separately and include: 1. Reason for request. 2. Findings. 3. Follow-up Consultations: patient was seen by medical team as well as nephrology team see notes for more detailed information pt was seen by Hem/Onc pt was seen by ID team Neurology involved, discussed 10/14/2018 GI involved cardiology involved Patient was seen by multiple specialist, please see consultation notes for more detailed information Summary of Hospital Course include:: 1. Description of specific treatment plan utilized for patients during their course of treatmen. 2. Summarize the time- course for resolution of acute symptoms and/or regressed behaviors. 3. Describe issues identified and worked on during hospitalization. 4. Describe medication utilized. 5. Describe medical problems identified and treated. 6. Reassessment of suicide risk Summary of Hospital Course: Patient is a 48-year-old [place] female with a psychiatric history of Schizoaffective disorder, multiple prior psychiatric admissions both in [place] and the [place]~ most recently hospitalized at [facility] x6 months ago, who was transferred from the medical floor after being treated from 09/10/18-09/12/18 for dysphagia, transfer was uneventful. At the time of admission patient presented to be disorganized, psychotic, patient is paranoid towards her saying "he is cheating on me, he wants to kill me", patient also was responding to internal stimuli is, majority of the answers were not related to the questions being asked. Patient was on one-to-one observation for many days because patient has disorganized thoughts and behavior, patient had tendency of drinking from toilet bowl, needs constant redirection. has a history of eating her feces and drinking her urine as a form of self punishment during these episodes. Please see admission note for more detailed information. Over the course of this hospitalization patient was on multiple psychotropic medications but patient was not getting any better, patient became more psychot ic, delusional, restless, agitated. This medical technical writer initiated Clozaril, after patient became more coherent family meeting with patient as well as patient took place. Patient and her agreed for a ECT treatment. Please see that note for more detailed information. BL ECT treatment #1 10/17/18, tolerated that well BL ECT treatment #2 10/20/18 tolerated it well BL ECT treatment #3 10/21/18 tolerated it well, but was restless after the procedure, pt needed to have 4xtreatments in order to have productive seizures. BL ECT treatment #4 10/22/18, pt needed to have 3treatments in order to have therapeutic seizures. BL ECT treatment #5 10/23/18, pt needed to have 2ECT tx in order to have therapeutic seizures. BL ECT treatment #6 10/27/18, pt had adequate seizures at 150% 0.30ms BL, 70Hz, 8sec, charge 269mC, energy 47.3J, pt had 16sec of motor and EEG seizures, which was considered to be 53% adequate. BL ECT treatment #7 10/29/18, pt needed to have 3tx in order to have adequate seizures. BL ECT treatment #8 10/31/18 pt had adequate seizures at 0.5ms BL, frequency of 90Hz 8sec, charge 576mC, energy 101.4J at 220 ohms, impedance 630 pt had about 19sec of motor seizures which was considered to be 83%likely adequate therapeutic seizures by MECTA analysis. pt tolerated treatment well. Pt ate, no side effects. next ECT treatment scheduled for 11/06/17, with the plan to give ECT tx weekly, after 4xtx, every other week for the next month, after that once a month tx. Patient will continue Risperdal 2 mg 3 times a day for psychosis Cogentin 0.5 mg 3 times a day for possible EPS Ambien 5 mg at the nighttime for insomnia Patient tolerated medications as well as ECT treatment well, no side effects observed or reported, aims 0, no EPS. Patient was on Abilify Manteina but it will be not resumed Seroquel was not helpful for the patient Clozaril was not helpful for the patient it was slowly weaned off Depakote was not beneficial for the patient Benzodiazepines were not helping patient Thorazine as well as Prolixin were not effective Multiple family meetings took place while patient was hospitalized, please see notes for more detailed information. Family was advised to look for POA from the legal services in the community. Overall patient improved significantly, patient is more calm, cooperated, patient does not exhibit any aggressive or agitated behavior, patient is more oriented has good appetite and sleep. Psychosis improved significantly, patient does not exhibit any acute psychotic symptoms but patient still has mildly disorganized thought process which seems to be chronic. Family meeting took place today, patient and report that that patient presents well, patient is willing to take patient back home, patient reported that "she is 99.9% better" when was asked about 0.1% has been said that "it is always improvement". Patient seems to be happy, looking forward to spend weekend with her family, patient and was advised to come back to the hospital on for outpatient ECT procedure. At the time of the discharge pt denied been depressed, denied thoughts of harming self or others, denied psychotic symptoms, and pt does not appeared to be psychotic, but has residual symptoms of psychosis such as thought process disorganization. Denied been anxious, pt is not in imminent danger to self or others, pt was referred to the [facility] outpatient program and ECT outpatient , information about follow up appointment, time and address provided to the pt, it is patient responsibility to follow up with outpatient clinic, PMD as well as specialists (see SW note for more detailed information). In case pt will need to obtain results of studies pending at discharge pt was provided with contact information of Psychiatric Inpatient unit [phone] as well as Medical Record Department [phone]. Patient is not using drugs, patient is not smoking, patient is not drinking alcohol. pt was provided with prescriptions for all of medications (please see medication reconciliation form) Pt was educated about safety plan in case of worsening of symptoms or in case of suicidal or homicidal ideation call 911 or go to the nearest ER, also was educated to take meds as prescribed and stay away from drugs, pt verbalized understanding. - Diagnosis (1) Schizoaffective disorder Current Visit: Yes Status: Chronic Priority: High - Final Diagnosis (DSM 5) Condition upon Discharge: GOOD Disposition: HOME/ ROUTINE Follow-up Treatment Plan: At the time of the discharge pt denied been depressed, denied thoughts of harming self or others, denied psychotic symptoms, and pt does not appeared to be psychotic, but has residual symptoms of psychosis such as thought process disorganization. Denied been anxious, pt is not in imminent danger to self or others, pt was referred to the [facility] outpatient program and ECT outpatient , information about follow up appointment, time and address provided to the pt, it is patient responsibility to follow up with outpatient clinic, PMD as well as specialists (see SW note for more detailed information). In case pt will need to obtain results of studies pending at discharge pt was provided with contact information of Psychiatric Inpatient unit [phone] as well as Medical Record Department [phone]. Patient is not using drugs, patient is not smoking, patient is not drinking alcohol. pt was provided with prescriptions for all of medications (please see medication reconciliation form) Pt was educated about safety plan in case of worsening of symptoms or in case of suicidal or homicidal ideation call 911 or go to the nearest ER, also was educated to take meds as prescribed and stay away from drugs, pt verbalized understanding. Prescriptions/Medication Reconciliation: Benztropine [Benztropine Mesylate] 0.5 mg PO TID #45 tab risperiDONE [RisperDAL Tab] 2 mg PO TID #45 tab Zolpidem [Ambien] 5 mg PO HS PRN #14 tab PRN Reason: Insomnia - Smoking Cessation Smoking Cessation Medication prescribed: No Reason for not providing: Patient does not smoke - Antipsychotic Medications Pt discharged on 2 or more routine antipsychotic medications: No
--- NOTE | 2018-11-01 00:54 | PN ---
DATE: 10/31/2018 SUBJECTIVE: The patient is stable. She feels better. She looks better. She is more alert, oriented. She is going to be discharged today as she has no complaint. No chest pain. Not short of breath. PHYSICAL EXAMINATION: GENERAL: The patient is comfortable. No respiratory distress. No dyspnea. No dizziness. No other complaints. VITAL SIGNS: Her vitals are stable. Temperature is 98, heart rate 78, blood pressure 102/59, respiration 12, saturation 98% on room air. HEAD AND NECK: Normal. No JVD. No thyromegaly. CHEST: Clear bilaterally. CARDIAC: First sound and second sounds are normal. ABDOMEN: Soft, nontender. EXTREMITIES: No edema. NEUROLOGIC: The patient is normal. Moving around, stable. No gait disturbance. No falls. Neurological exam is normal. Normal gait, nonfocal. She is alert, awake, and oriented x3. EXTREMITIES: Lower extremity exam again, I want to mention, no edema. Also, no calf tenderness. IMPRESSION: 1. History of schizoaffective disorder, continue current therapy. 2. History of hypothyroidism. Continue Synthroid. 3. Gastritis. Continue Protonix 40 once a day. 4. Breast cancer, followup her oncologist. 5. Dysphagia. Continue current diet at home. 6. History of tachycardia. Blood pressure unstable, continue atenolol 25 mg p.o. daily. PLAN: Continue current therapy. Followup clinically. The patient will followup with the psychiatrist as an outpatient or will continue current therapy. Igor Ca MD
== END 2018-10-31 16:02 | disposition home or self-care (01) | DRG 430 ==
LOC: PSYC 14:49 → ERH 10-10 16:21 → PSYC 10-10 16:22
PROVIDERS: ADMIT Psychiatry & Neurology Psychiatry; ATTEND Psychiatry & Neurology Psychiatry
PROC: GZ3ZZZZ Medication Management (ICD-10-PCS; 2018-09-13)
PROC: GZB4ZZZ Other Electroconvulsive Therapy (ICD-10-PCS; principal; 2018-10-17 12:30)
PROC: GZB4ZZZ Other Electroconvulsive Therapy (ICD-10-PCS; 2018-10-20)
PROC: GZB4ZZZ Other Electroconvulsive Therapy (ICD-10-PCS; 2018-10-21)
PROC: GZB4ZZZ Other Electroconvulsive Therapy (ICD-10-PCS; 2018-10-22)
PROC: GZB4ZZZ Other Electroconvulsive Therapy (ICD-10-PCS; 2018-10-23)
PROC: GZB4ZZZ Other Electroconvulsive Therapy (ICD-10-PCS; 2018-10-27)
PROC: GZB4ZZZ Other Electroconvulsive Therapy (ICD-10-PCS; 2018-10-29)
PROC: GZB4ZZZ Other Electroconvulsive Therapy (ICD-10-PCS; 2018-10-31)
DX: F25.9 Schizoaffective disorder, unspecified (principal); F32.9 Major depressive disorder, single episode, unspecified; N17.9 Acute kidney failure, unspecified; N39.0 Urinary tract infection, site not specified; E86.0 Dehydration; E44.0 Moderate protein-calorie malnutrition; E03.9 Hypothyroidism, unspecified; B96.20 Unspecified Escherichia coli [E. coli] as the cause of diseases classified elsewhere; E78.5 Hyperlipidemia, unspecified; K29.70 Gastritis, unspecified, without bleeding; F41.9 Anxiety disorder, unspecified; M06.9 Rheumatoid arthritis, unspecified; I10 Essential (primary) hypertension; Y84.2 Radiological procedure and radiotherapy as the cause of abnormal reaction of the patient, or of later complication, without mention of misadventure at the time of the procedure; R13.14 Dysphagia, pharyngoesophageal phase; D64.9 Anemia, unspecified; I89.0 Lymphedema, not elsewhere classified; Z91.14 Patient's other noncompliance with medication regimen; Z85.3 Personal history of malignant neoplasm of breast; Z92.3 Personal history of irradiation; Z92.21 Personal history of antineoplastic chemotherapy; Z90.11 Acquired absence of right breast and nipple

== ENCOUNTER 2018-09-25 14:56 | Emergency (ER) | payer MEDICAID ==
[2018-09-25 15:17] VITALS: BMI 30.9
[2018-09-25 15:24] VITALS: RESP 18; TEMP 98; O2SAT 98
--- NOTE | 2018-09-25 15:27 | ED PDOC ---
Arrival/HPI - General Chief Complaint: Trauma Time Seen by Provider: 09/25/18 14:57 Historian: Patient, Other (residential direct support professional) - History of Present Illness Narrative History of Present Illness (Text): 09/25/18 15:14 48 year old female, whose past medical history includes rheumatoid arthritis, breast cancer status post mastectomy, thyroid disease, and schizophrenia, presents to the emergency department from the psychiatric department for fall. Patient was admitted to psychiatry for depression. Patient is reported to have been knocking on window of nursing station to get someone's attention, when she fell backwards and hit her head, passing out. Patient hasn't been seen communicating verbally too clearly neither prior to, or after, fall. Patient history given by residential aide. Time/Duration: Prior to Arrival, 1/2 hour Symptom Onset: Sudden Past Medical History - Provider Review Nursing Documentation Reviewed: Yes - Infectious Disease Hx of Infectious Diseases: None - Tetanus Immunization Tetanus Immunization: Unknown - Cardiac Hx Cardiac Disorders: No Hx Pacemaker: No - Pulmonary Hx Respiratory Disorders: No - Neurological Hx Neurological Disorder: No Hx Paralysis: No - HEENT Hx HEENT Disorder: No - Renal Hx Renal Disorder: No - Endocrine/Metabolic Hx Endocrine Disorders: Yes Hx Hyperthyroidism: Yes - Hematological/Oncological Hx Blood Disorders: Yes - Integumentary Hx Dermatological Disorder: No - Musculoskeletal/Rheumatological Hx Musculoskeletal Disorders: Yes - Gastrointestinal Hx Gastrointestinal Disorders: No - Genitourinary/Gynecological Hx Genitourinary Disorders: No - Psychiatric Hx Psychophysiologic Disorder: Yes Hx Hallucinations: No Hx Panic Disorder: No Hx Paranoia: No Hx Schizophrenia: No Hx Substance Use: No - Surgical History Hx Section: Yes Hx Liver Transplant: Yes Other/Comment: BREAST SURGERY, LT BREAST REDUCTION MAMMOPLASTY, CAPSULE ENDOSCOPY - Anesthesia Hx Anesthesia: Yes Hx Anesthesia Reactions: No Hx Malignant Hyperthermia: No - Suicidal Assessment Feels Threatened In Home Enviroment: No Family/Social History - Physician Review Nursing Documentation Reviewed: Yes Family/Social History: No Known Family HX Smoking Status: Never Smoked Hx Alcohol Use: No Hx Substance Use: No Hx Substance Use Treatment: No Allergies/Home Meds Allergies/Adverse Reactions: Allergies vancomycin Adverse Reaction (Intermediate, Verified 09/13/18 01:45) ITCHING facial flushing, itching, and hot sensation Home Medications: Home Meds Medication Instructions Recorded Confirmed Cholecalciferol (Vitamin D3) 1 tab PO DAILY 03/20/18 09/12/18 [Vitamin D-400] Folic Acid 1 tab PO DAILY 03/21/18 09/12/18 Aripiprazole [Abilify] 20 mg PO DAILY 09/09/18 09/12/18 Benztropine [Cogentin] 1 mg PO BID 09/09/18 09/12/18 Gabapentin [Neurontin] 300 mg PO DAILY 09/09/18 09/12/18 Methotrexate [Xatmep] 2.5 mg PO DAILY 09/09/18 09/12/18 Omeprazole 40 mg PO DAILY 09/09/18 09/12/18 Propranolol [Inderal] 10 mg PO DAILY 09/09/18 09/12/18 Sennosides [Senna Laxative] 1 tab PO DAILY 09/09/18 09/12/18 Spironolact/Hydrochlorothiazid 1 tab PO DAILY 09/09/18 09/12/18 [Spironolactone-Hctz 25-25 Tab] Review of Systems - Physician Review All systems were reviewed & negative as marked: Yes - Review of Systems Systems not reviewed;Unavailable: Altered Mental Status Physical Exam - Systems Exam Head: Present: Atraumatic Pupils: Present: PERRL Extroacular Muscles: Present: EOMI Conjunctiva: Present: Normal Mouth: Present: Moist Mucous Membranes Neck: Present: Normal Range of Motion. No: MIDLINE TENDERNESS Breast/Axillary: No: Tender to Palpation (Right mastectomy) Back: No: Midline Tenderness Upper Extremity: Present: Normal ROM, Swelling (to right arm (her baseline)), Neurovascularly Intact Lower Extremity: Present: Normal ROM, Neurovascularly Intact Neurological: No: Speech Normal (Speech unclear) Psychiatric: Present: Alert. No: Oriented x 3 (Oriented x 1 states name) Medical Decision Making ED Course and Treatment: 09/25/18 15:39 Impression: 48 year old female presents for evaluation status post fall. Differential Diagnosis included but are not limited to: Syncope vs mechanical fall Head injury - rule out intracranial hemorrhage Plan: -- CT C-spine -- CT head -- EKG -- Chest X-ray -- Urinalysis -- Reassess and disposition Prior Visits: Notes and results from previous visits were reviewed. Progress Notes: 09/25/18 17:13 Dr. Ca came to evaluate patient. He states that the patient has been on sedation in the Psych unit which is why she's been very drowsy and having an unsteady gait. Currently she is more awake and alert. He says this is her baseline. Labs reviewed. Troponin Negative. CT Head pending. 09/25/18 18:14 EKG: Sinus arrythmia at [address] elevations, nl intervals 09/25/18 18:49 EXAM: CT Cervical Spine Without IV contrast. IMPRESSION: No acute cervical spine abnormality. Electronically signed on Sep 25, 2018 6:45:56 PM EST by: Dmitriy Fall M.D., PREMA Certified By ABR & CBCCT Fellowship Trained MRI and CT Specialist CT Head without Intravenous Contrast. IMPRESSION: No acute intracranial abnormality Electronically signed on Sep 25, 2018 6:44:38 PM EST by: Dmitriy Fall M.D., PREMA Certified By ABR & CBCCT Fellowship Trained MRI and CT Specialist Case discussed with Dr. Ca and she can be sent back to the Psychiatry unit. - RAD Interpretation Radiology Orders: 09/25/18 15:08 CERVICAL SPINE W/O CONTRAST [CT] Stat HEAD W/O CONTRAST [CT] Stat CHEST PORTABLE [RAD] Stat - Scribe Statement The provider has reviewed the documentation as recorded by the [place] [employer] Provider Scribe Attestation: All medical record entries made by the Scribe were at my direction and personally dictated by me. I have reviewed the chart and agree that the record accurately reflects my personal performance of the history, physical exam, medical decision making, and the department course for this patient. I have also personally directed, reviewed, and agree with the discharge instructions and disposition. Disposition/Present on Arrival - Present on Arrival Any Indicators Present on Arrival: No History of DVT/PE: No History of Uncontrolled Diabetes: No Urinary Catheter: No History Surgical Site Infection Following: None - Disposition Have Diagnosis and Disposition been Completed?: Yes Diagnosis: Fall, Head injury Disposition: HOSPITALIZED Disposition Time: 18:51 Patient Problems: Current Active Problems Problem Status Onset Schizoaffective disorder Acute Fall Acute Head injury Acute Condition: IMPROVED Forms: transOMIC (Greenlandic)
[2018-09-25 16:02] LABS: BASO # 0.02 K/mm3 (0.0-2.0); BASO % 0.5 % (0.0-3.0); EOS # 0.1 (0.0-0.7); EOS % 1.3 % (1.5-5.0); GRAN # 1.25 (1.4-6.5); GRAN % 31.5 % (50.0-68.0); HEMOGLOBIN 11.5 g/dL (12.0-16.0); LYMPH # 1.9 (1.2-3.4); MEAN CELL VOLUME 88.1 fl (80.0-105.0); MEAN CORPUSCULAR HEMOGLOBIN 28.5 pg (25.0-35.0); MEAN CORPUSCULAR HGB CONC 32.3 g/dl (31.0-37.0); MEAN PLATELET VOLUME 9.8 fl (7.0-11.0); MONO # 0.7 (0.1-0.6); MONO % 17.7 % (1.0-6.0); RBC 4.04 10^6/uL (3.5-6.1); RED CELL DISTRIBUTION WIDTH 16.9 % (11.5-14.5)
[2018-09-25 16:09] LABS: INR 1.06; PROTHROMBIN TIME 12.1 SECONDS (9.4-12.5)
[2018-09-25 16:16] LABS: ALB/GLOB RATIO 1.2 (1.1-1.8); ALT/SGPT 42 U/L (7-56); AST/SGOT 51 U/L (14-36); BLOOD UREA NITROGEN 15 mg/dL (7-21); CALCIUM 9.3 mg/dL (8.4-10.5); GFR NON-AFRICAN AMERICAN 53
[2018-09-25 16:26] LABS: TROPONIN I < 0.01 ng/mL
[2018-09-25 19:04] VITALS: PULSE 72
[2018-09-25 19:17] VITALS: BP 133/69
[2018-09-26] MEDS ORDERED: Absorbable Gelatin Sponge Size 12-7 ONE (00:05)
--- NOTE | 2018-09-26 08:16 | CT ---
Date of service: 09/25/2018 PROCEDURE: CT HEAD WITHOUT CONTRAST. HISTORY: head injury / syncope r/o ICH COMPARISON: None available. TECHNIQUE: Axial computed tomography images were obtained through the head/brain without intravenous contrast. Radiation dose: Total exam DLP = 1039.27 mGy-cm. This CT exam was performed using one or more of the following dose reduction techniques: Automated exposure control, adjustment of the mA and/or kV according to patient size, and/or use of iterative reconstruction technique. FINDINGS: HEMORRHAGE: No intracranial hemorrhage. BRAIN: No mass effect or edema. No atrophy or chronic microvascular ischemic changes. VENTRICLES: Unremarkable. No hydrocephalus. CALVARIUM: Unremarkable. PARANASAL SINUSES: Unremarkable as visualized. No significant inflammatory changes. MASTOID AIR CELLS: Unremarkable as visualized. No inflammatory changes. OTHER FINDINGS: None. IMPRESSION: Normal CT of the Head.
--- NOTE | 2018-09-26 08:32 | CT ---
Date of service: 09/25/2018 PROCEDURE: CT Cervical Spine without contrast HISTORY: fall with head injury r/o fx COMPARISON: None available. TECHNIQUE: Axial computed tomography images were obtained of the cervical spine without the use of intravenous contrast. Coronal and sagittal reformatted images were created and reviewed. Radiation dose: Total exam DLP = 660.36 mGy-cm. This CT exam was performed using one or more of the following dose reduction techniques: Automated exposure control, adjustment of the mA and/or kV according to patient size, and/or use of iterative reconstruction technique. FINDINGS: VERTEBRAE: No fracture. Normal alignment. No destructive bony lesion. DISCS/SPINAL CANAL/NEURAL FORAMINA: No significant central canal or neural foraminal stenosis. Discs heights are grossly preserved. PARASPINAL SOFT TISSUES: Unremarkable. OTHER FINDINGS: None. IMPRESSION: Unremarkable CT of the cervical spine.
--- NOTE | 2018-09-26 08:38 | RAD ---
HISTORY: syncope COMPARISON: Chest x-ray performed 09/09/18 TECHNIQUE: Chest, one view. FINDINGS: LUNGS: No focal consolidation. Please note that chest x-ray has limited sensitivity for the detection of pulmonary masses. PLEURA: No significant pleural effusion identified. No definite pneumothorax . CARDIOVASCULAR: Cardiomegaly. No significant atherosclerotic calcification present. OSSEOUS STRUCTURES: Degenerative changes of the spine. VISUALIZED UPPER ABDOMEN: Unremarkable. OTHER FINDINGS: None. IMPRESSION: No focal consolidation, significant pleural effusion, or definite pneumothorax identified.
--- NOTE | 2018-09-26 09:22 | CARD ---
APPROVED REPORT Date of service: 09/25/2018 EKG Measurement Heart [id number] ID [id number] <Conclusion> Sinus rhythm with 1 APC Low voltage PRWP V 1 - 3 No change
== END 2018-09-25 19:12 | disposition short-term general hospital (02) ==
LOC: ED 14:56
DX: S09.90XA Unspecified injury of head, initial encounter (principal); W18.30XA Fall on same level, unspecified, initial encounter; Y92.238 Other place in hospital as the place of occurrence of the external cause; F20.9 Schizophrenia, unspecified; M06.9 Rheumatoid arthritis, unspecified; Z85.3 Personal history of malignant neoplasm of breast

== ENCOUNTER 2018-11-06 07:19 | Day surgery (SDC) | payer MEDICAID ==
[2018-11-05 08:40] VITALS: BMI 28.3
[2018-11-06] MEDS ORDERED: Lactated Ringer's 1,000 ML IV SCH (10:15)
[2018-11-06] MEDS ORDERED: Propofol 10 mg/ml Inj (20 ML) ONE (10:15)
[2018-11-06] MEDS ORDERED: Succinylcholine 200 mg/10 ml Inj IV ONE (10:15)
--- NOTE | 2018-11-06 12:35 | CP.PCM.HP ---
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 pt improved significantly on ECT treatment, pt had 8ECT treatments while being inpatient psych. pt was discharged and came for outpatient ECT procedure. pt was seen in OR, pt singed consent for treatment, pt had a capacity to do so. discussed with pt's Car, who is next to the pt, pt gave permission to discuss tx with her . as per , pt is doing "very well, we are all happy to have her back". pt is compliant with meds, denied any side effects. BL ECT treatment #1 10/17/18, tolerated that well BL ECT treatment #2 10/20/18 tolerated it well BL ECT treatment #3 10/21/18 tolerated it well, but was restless after the procedure, pt needed to have 4xtreatments in order to have productive seizures. BL ECT treatment #4 10/22/18, pt needed to have 3treatments in order to have therapeutic seizures. BL ECT treatment #5 10/23/18, pt needed to have 2ECT tx in order to have therapeutic seizures. BL ECT treatment #6 10/27/18, pt had adequate seizures at 150% 0.30ms BL, 70Hz, 8sec, charge 269mC, energy 47.3J, pt had 16sec of motor and EEG seizures, which was considered to be 53% adequate. BL ECT treatment #7 10/29/18, pt needed to have 3tx in order to have adequate seizures. BL ECT treatment #8 10/31/18 pt had adequate seizures at 0.5ms BL, frequency of 90Hz 8sec, charge 576mC, energy 101.4J at 220 ohms, impedance 630 pt had about 19sec of motor seizures which was considered to be 83%likely adequate thera peutic seizures by MECTA analysis. pt tolerated treatment well. Pt ate, no side effects. ECT treatment 11/06/17, used the same parameters as last ECT treatment because pt had adequate seizures. 0.5ms BL, frequency of 90Hz 8sec, charge 576mC, energy 101.4J at 220 ohms, impedance 630 pt had about 19sec of motor seizures which was considered to be 94%likely adequate therapeutic seizures by MECTA analysis. pt tolerated treatment well. pt will be accompanied by her back home, next treatment will be 11/13/18 with the plan to give ECT tx weekly, after 4xtx 11/27/18, every other week for the next month, after that once a month tx. Patient will continue Risperdal 2 mg 3 times a day for psychosis Cogentin 0.5 mg 3 times a day for possible EPS Ambien 5 mg at the nighttime for insomnia Family was advised to look for POA from the legal services in the community, said that they are in the process of obtaining of POA. Present on Admission - Present on Admission Any Indicators Present on Admission: No Review of Systems - Review of Systems Systems not reviewed;Unavailable: Acuity of Condition - Constitutional Constitutional: As Per HPI - EENT Eyes: As Per HPI Ears: As Per HPI Nose/Mouth/Throat: As Per HPI - Breasts Breasts: As Per HPI - Cardiovascular Cardiovascular: As Per HPI - Respiratory Respiratory: As Per HPI - Gastrointestinal Gastrointestinal: As Per HPI - Genitourinary Genitourinary: As Per HPI - Reproductive: Female Reproductive:Female: As Per HPI - Menstruation Menstruation: As Per HPI - Musculoskeletal Musculoskeletal: As Per HPI - Integumentary Integumentary: As Per HPI - Neurological Neurological: As Per HPI - Psychiatric Psychiatric: As Per HPI - Endocrine Endocrine: As Per HPI - Hematologic/Lymphatic Hematologic: As Per HPI Past Patient History - Infectious Disease Hx of Infectious Diseases: None - Tetanus Immunizations Tetanus Immunization: Unknown - Past Medical History & Family History Past Medical History?: Yes - Past Social History Smoking Status: Never Smoked - CARDIAC Hx Pacemaker: No - PULMONARY Hx Respiratory Disorders: No - NEUROLOGICAL Hx Paralysis: No - HEENT Hx HEENT Problems: No - RENAL Hx Chronic Kidney Disease: No - ENDOCRINE/METABOLIC Hx Endocrine Disorders: Yes Hx Hyperthyroidism: Yes - HEMATOLOGICAL/ONCOLOGICAL Hx Blood Transfusions: No Hx Blood Transfusion Reaction: No - INTEGUMENTARY Hx Dermatological Problems: No - MUSCULOSKELETAL/RHEUMATOLOGICAL Hx Musculoskeletal Disorders: Yes - GASTROINTESTINAL Hx Gastrointestinal Disorders: No - GENITOURINARY/GYNECOLOGICAL Hx Genitourinary Disorders: No - PSYCHIATRIC Hx Emotional Abuse: No Hx Physical Abuse: No Hx Substance Use: No - SURGICAL HISTORY Hx Surgeries: Yes (SKIN GRAFT TAKEN FROM THIGH FOR RIGHT BREAST SX.C/S X 1;) - ANESTHESIA Hx Anesthesia Reactions: No Hx Malignant Hyperthermia: No Meds Allergies/Adverse Reactions: Allergies Allergy/AdvReac Type Severity Reaction Status Date / Time vancomycin AdvReac Intermediate ITCHING Verified 09/13/18 01:45 Physical Exam - Constitutional Appears: Well, Non-toxic Results - Vital Signs Recent Vital Signs: Last Vital Signs Temp 98.6 F 11/06/18 08:07 Pulse 75 11/06/18 08:07 Resp 20 11/06/18 08:07 BP 83/58 L 11/06/18 08:07 Pulse Ox 100 11/06/18 08:07 - Labs Labs: Laboratory Results - last 24 hr 11/06/18 07:35 Urine HCG, Qual Negative - EKG Data EKG Interpreted by: Other (myself, ED, anestesiologist) Assessment & Plan - Assessment and Plan (Free Text) Assessment: schizoaffective disorder, treatment resistant Plan: ECT treatment 11/06/17, used the same parameters as last ECT treatment because pt had adequate seizures. 0.5ms BL, frequency of 90Hz 8sec, charge 576mC, energy 101.4J at 220 ohms, impedance 630 pt had about 19sec of motor seizures which was considered to be 94%likely adequate therapeutic seizures by MECTA analysis. pt tolerated treatment well. next treatment will be 11/13/18 with the plan to give ECT tx weekly, after 4xtx 11/27/18, every other week for the next month, after that once a month tx. Patient will continue Risperdal 2 mg 3 times a day for psychosis Cogentin 0.5 mg 3 times a day for possible EPS Ambien 5 mg at the nighttime for insomnia - Date & Time Date: 11/06/18 Decision To Admit - Pt Status Changed To: Hospital Disposition Of: Extended Recovery/Post Procedure
[2018-11-06 12:38] VITALS: BP 100/50; PULSE 70; RESP 20; TEMP 98; O2SAT 94
== END 2018-11-06 12:15 | disposition home or self-care (01) ==
LOC: SDS 07:19
PROVIDERS: ATTEND Psychiatry & Neurology Psychiatry
DX: F25.9 Schizoaffective disorder, unspecified (principal)
CPT/HCPCS: 84703; 90870; J0330; J2001; J2704; J7120 ×2

== ENCOUNTER 2018-11-07 09:40 | Inpatient (IN) | payer MEDICAID ==
--- NOTE | 2018-11-07 11:16 | ED PDOC ---
Arrival/HPI - General Chief Complaint: Flu-like Symptoms Time Seen by Provider: 11/07/18 11:06 Historian: Patient, Family, Storm Door Maker () - History of Present Illness Narrative History of Present Illness (Text): 11/07/18 11:16 A 48 year old female, whose past medical history includes rheumatoid arthritis, breast cancer status post mastectomy, thyroid disease, and schizophrenic, presents to the emergency department with family complaining of right sided breast pain since 10 days ago. Patient's family reports patient has experienced dizziness and has been unable to walk. Patient reports no left breast pain at this time. Patient's family reports patient was seen in hosptial recently for psychiatric symptoms. Patient denies any fever, chills, shortness of breath, chest pain, diarrhea, nausea, vomiting, cough, back pain, neck pain, headache, or any other complaints. PMD: Dr. Smith Time/Duration: Other (10 days) Symptom Onset: Gradual Symptom Course: Unchanged Activities at Onset: Light Context: Home Past Medical History - Provider Review Nursing Documentation Reviewed: Yes - Infectious Disease Hx of Infectious Diseases: None - Tetanus Immunization Tetanus Immunization: Unknown - Cardiac Hx Hypertension: Yes Hx Pacemaker: No - Pulmonary Hx Respiratory Disorders: No - Neurological Hx Paralysis: No - HEENT Hx HEENT Disorder: No - Renal Hx Renal Disorder: No - Endocrine/Metabolic Hx Endocrine Disorders: Yes Hx Hyperthyroidism: Yes - Hematological/Oncological Hx Blood Transfusions: No Hx Blood Transfusion Reaction: No - Integumentary Hx Dermatological Disorder: No - Musculoskeletal/Rheumatological Hx Musculoskeletal Disorders: Yes - Gastrointestinal Hx Gastrointestinal Disorders: No - Genitourinary/Gynecological Hx Genitourinary Disorders: No - Psychiatric Hx Emotional Abuse: No Hx Physical Abuse: No Hx Substance Use: No - Surgical History Hx Mastectomy: Yes - Anesthesia Hx Anesthesia: Yes Hx Anesthesia Reactions: No Hx Malignant Hyperthermia: No - Suicidal Assessment Feels Threatened In Home Enviroment: No Family/Social History - Physician Review Nursing Documentation Reviewed: Yes Family/Social History: Unknown Family HX Smoking Status: Never Smoked Hx Alcohol Use: No Hx Substance Use: No Hx Substance Use Treatment: No Allergies/Home Meds Allergies/Adverse Reactions: Allergies vancomycin Adverse Reaction (Intermediate, Verified 09/13/18 01:45) ITCHING facial flushing, itching, and hot sensation Home Medications: Home Meds Medication Instructions Recorded Confirmed Cholecalciferol (Vitamin D3) 1 tab PO DAILY 03/20/18 11/06/18 [Vitamin D-400] Methotrexate [Xatmep] 2.5 mg PO DAILY 09/09/18 11/06/18 Omeprazole 40 mg PO DAILY 09/09/18 11/06/18 Propranolol [Inderal] 10 mg PO DAILY 09/09/18 11/06/18 Sennosides [Senna Laxative] 1 tab PO DAILY 09/09/18 11/06/18 Spironolact/Hydrochlorothiazid 1 tab PO DAILY 09/09/18 11/06/18 [Spironolactone-Hctz 25-25 Tab] Atenolol [Tenormin] 1 tab PO DAILY 11/06/18 11/06/18 Folic Acid 1 tab PO DAILY 11/06/18 11/06/18 Levothyroxine [Synthroid] 100 mcg PO DAILY 11/06/18 11/06/18 Magnesium Oxide [Mag-Ox] 1 tab PO DAILY 11/06/18 11/06/18 Review of Systems - Physician Review All systems were reviewed & negative as marked: Yes - Review of Systems Constitutional: absent: Fevers, Night Sweats Respiratory: absent: SOB, Cough Cardiovascular: Other (Right sided breast pain). absent: Chest Pain Gastrointestinal: absent: Diarrhea, Nausea, Vomiting Musculoskeletal: absent: Back Pain, Neck Pain Neurological: Dizziness. absent: Headache Physical Exam - Physical Exam Narrative Physical Exam (Text): 11/07/18 11:17 Gen: VS reviewed, alert, well developed, well nourished, nontoxic, mild distress. ENT: normal pharynx. Eye: EOMI, PERRL. Neck: no JVD, supple, no adenopathy. CV: regular rate, regular rhythm, no rubs, no murmur, no gallops, S1, S2, pulses equal and strong. Pulm: no distress, clear to auscultation, no wheeze, no rhonchi, breath sounds equal, no rales. Chest: Normal left breast exam, no discreet masses, no nipple discharge, no abnormal skin changes, Patient has pain on entire right breast, multiple old surgical scars, dense tissue on entire Abd: soft, nontender, no guarding, no rebound, no rigidity, normal bowel sounds. Ext: no edema. Skin: good color, no rash, no cyanosis. Psych: responds appropriately to questions, normal affect. Neuro: oriented x 3, CN2-12 intact grossly, motor intact, sensation intact. Vital Signs Reviewed: Yes Vital Signs Temp Pulse Resp BP Pulse Ox 11/07/18 10:33 80 18 139/92 H 100 11/07/18 09:41 97.8 F 83 18 75/54 L 99 Temperature: Afebrile Blood Pressure: Hypotensive Pulse: Regular Respiratory Rate: Normal Medical Decision Making ED Course and Treatment: 11/07/18 11:18 Impression: 48 year old presenting to the emergency department for right sided breast pain. Plan: -- Morphine -- IV fluids -- Blood culture -- Urine culture -- Urinalysis -- Reassess and disposition Prior Visits: Notes and results from previous visits were reviewed. Progress Notes: 11/07/18 15:[address] smith. patient to be admitted for transient hypotension, dehydration, rule out sepsis. patient refused blood cultures. - RAD Interpretation Narrative RAD Interpretations (Text): 11/07/18 12:15 Procedure: Chest CT Impression: Unremarkable CT of the chest. No evidence of metastatic disease. Dictator: Kehinde Raymond Bran Mixer: Radiologist - EKG Interpretation EKG Interpretation (Text): 11/07/18 12:17 1101: nsr at 74 bpm, nml qrs, nml axis, low voltage, no acute sttw abn Interpreted by ED Physician: Yes - Scribe Statement The provider has reviewed the documentation as recorded by the Omari Moore All medical record entries made by the Scribe were at my direction and personally dictated by me. I have reviewed the chart and agree that the record accurately reflects my personal performance of the history, physical exam, medical decision making, and the department course for this patient. I have also personally directed, reviewed, and agree with the discharge instructions and disposition. Disposition/Present on Arrival - Present on Arrival Any Indicators Present on Arrival: No History of DVT/PE: No History of Uncontrolled Diabetes: No Urinary Catheter: No History of Decub. Ulcer: No History Surgical Site Infection Following: None - Disposition Have Diagnosis and Disposition been Completed?: Yes Diagnosis: Hypotension, Dehydration, Breast pain, right Disposition: HOSPITALIZED Disposition Time: 15:09 Patient Plan: Observation Patient Problems: Current Active Problems Problem Status Onset Breast pain, right Acute Dehydration Acute Hypotension Acute Condition: STABLE Discharge Instructions (ExitCare): Chest Pain (ED) Referrals: Igor Smith MD [Primary Care Provider] - Follow up with primary Forms: [employer] (Pashto)
[2018-11-07] MEDS ORDERED: Morphine 4 mg/ml ISec IVP STA (11:26)
[2018-11-07] MEDS ORDERED: Sodium Chloride 0.9% 1,000 ML IV SCH (11:30)
[2018-11-07] MEDS ORDERED: Iohexol 300 100 ML IJ ONE (11:34)
[2018-11-07] MEDS ORDERED: Sodium Chloride 0.9% 1,000 ML IV STA (11:47)
[2018-11-07 12:01] LABS: VENOUS BLOOD GAS BASE EXCESS 1.4 mmol/L (0.0-2.0); VENOUS BLOOD GAS PO2 32 mm/Hg (30-55); VENOUS BLOOD PH 7.34 (7.32-7.43)
[2018-11-07 12:08] LABS: EOS % 0.8 % (1.5-5.0); GRAN # 3.74 (1.4-6.5); GRAN % 74.8 % (50.0-68.0); HEMOGLOBIN 9.4 g/dL (12.0-16.0); LYMPH # 1.1 (1.2-3.4); MEAN CELL VOLUME 86.8 fl (80.0-105.0); MEAN CORPUSCULAR HGB CONC 31.1 g/dl (31.0-37.0); MEAN PLATELET VOLUME 9.7 fl (7.0-11.0); MONO # 0.1 (0.1-0.6); MONO % 2.4 % (1.0-6.0); RBC 3.48 10^6/uL (3.5-6.1); RED CELL DISTRIBUTION WIDTH 16.5 % (11.5-14.5)
[2018-11-07 12:30] LABS: ALB/GLOB RATIO 0.9 (1.1-1.8); ALBUMIN 3.6 g/dL (3.0-4.8); ALT/SGPT 44 U/L (7-56); AST/SGOT 38 U/L (14-36); BLOOD UREA NITROGEN 12 mg/dL (7-21); CALCIUM 8.7 mg/dL (8.4-10.5); GFR NON-AFRICAN AMERICAN > 60
[2018-11-07 12:35] LABS: TROPONIN I < 0.01 ng/mL
--- NOTE | 2018-11-07 13:28 | CT ---
Date of service: 11/07/2018 PROCEDURE: CT Chest with contrast HISTORY: right breast pain, hx breast ca and sx COMPARISON: None available. TECHNIQUE: Contiguous axial images were obtained through the chest with intravenous contrast enhancement. Sagittal and coronal reconstructions were performed. IV contrast: Radiation dose: Total exam DLP = 329.24 mGy-cm. This CT exam was performed using one or more of the following dose reduction techniques: Automated exposure control, adjustment of the mA and/or kV according to patient size, and/or use of iterative reconstruction technique. FINDINGS: LUNGS: There is linear atelectasis or scarring at the left lung base. There are no pulmonary nodules MEDIASTINUM: Unremarkable thoracic aorta. No aneurysm or dissection. Normal sized heart. Main pulmonary artery unremarkable. No vascular congestion. No lymphadenopathy. No aortic atherosclerotic calcification or mural plaque present. PLEURA: Small bilateral pleural effusions BONES: No fracture. No destructive lesion. UPPER ABDOMEN: Grossly unremarkable. OTHER FINDINGS: None. IMPRESSION: Unremarkable contrast enhanced CT of the chest. No evidence of metastatic disease
[2018-11-07 17:48] LABS: URINE BILIRUBIN NEGATIVE (NEGATIVE); URINE BLOOD SMALL (NEGATIVE); URINE GLUCOSE (UA) NEGATIVE (NEGATIVE); URINE LEUKOCYTE ESTERASE NEGATIVE Leu/uL (NEGATIVE); URINE PROTEIN NEGATIVE mg/dL (<30 mg/dL); URINE UROBILINOGEN 0.2 E.U./dL (<1 E.U./dL)
[2018-11-07 17:50] LABS: URINE APPEARANCE CLEAR (CLEAR); URINE COLOR LIGHT YELLOW (YELLOW)
[2018-11-07 18:04] LABS: URINE EPITHELIAL CELLS 0 - 2 /hpf (0-5); URINE RBC 0 - 2 /hpf (0-2); URINE WBC NEGATIVE /hpf (0-6)
[2018-11-07 21:26] VITALS: BMI 28.3
[2018-11-07] MEDS ORDERED: Pneumococcal 23-Valent Vaccine IM ONE (21:26)
[2018-11-07] MEDS ORDERED: Influenza Vaccine 60 mcg/0.5 mL SYR (4YR UP) IM ONE (21:26)
[2018-11-07] MEDS ORDERED: Potassium Chloride 20 mEq ER Tab PO STA (21:37)
[2018-11-08] MEDS: Sodium Chloride 0.9% 1,000 ML IV SCH ×2 (00:04→12:06)
[2018-11-08] MEDS: Levothyroxine 100 MCG TAB PO SCH (06:18)
[2018-11-08 07:00] LABS: BLOOD UREA NITROGEN 8 mg/dL (7-21); CALCIUM 8.2 mg/dL (8.4-10.5); GFR NON-AFRICAN AMERICAN > 60
[2018-11-08 07:08] LABS: HEMOGLOBIN 8.7 g/dL (12.0-16.0); MEAN CELL VOLUME 86.4 fl (80.0-105.0); MEAN CORPUSCULAR HEMOGLOBIN 26.9 pg (25.0-35.0); MEAN CORPUSCULAR HGB CONC 31.2 g/dl (31.0-37.0); MEAN PLATELET VOLUME 9.1 fl (7.0-11.0); RBC 3.23 10^6/uL (3.5-6.1); RED CELL DISTRIBUTION WIDTH 16.4 % (11.5-14.5); WHITE BLOOD COUNT 3.6 10^3/uL (4.5-11.0)
--- NOTE | 2018-11-08 09:46 | CP.PCM.PCO ---
Addendum Addendum: Patient could not participate in an interview this morning due to sedation. I reviewed ER report and staff notes. Patient is well known to this provider. There doesn't appear to be any overt new symptoms of psychosis observed thus far. This consumer services consultant will re-attempt interview again in the AM tomorrow. To continue medications risperdajeevan hall and nati prn. 11/08/18 09:44
--- NOTE | 2018-11-08 10:04 | CARD ---
APPROVED REPORT Date of service: 11/07/2018 EKG Measurement Heart [id number] PA 160P26 [id number] <Conclusion> Normal sinus rhythm Low voltage QRS Poor RR Progression Abnormal ECG
--- NOTE | 2018-11-08 10:09 | CARD ---
APPROVED REPORT Date of service: 11/07/2018 EKG Measurement Heart [id number] DE 150P17 [id number] <Conclusion> Normal sinus rhythm Low voltage QRS Cannot rule out Anterior infarct, age undetermined Abnormal ECG
--- NOTE | 2018-11-08 15:33 | CARD ---
APPROVED REPORT Date of service: 11/08/2018 EKG Measurement Heart [id number] CT 146P25 [id number] <Conclusion> Normal sinus rhythm Possible Anterior infarct, age undetermined Abnormal ECG
--- NOTE | 2018-11-08 17:23 | US ---
Date of service: 11/08/2018 HISTORY: pain COMPARISON: None. TECHNIQUE: Sonographic evaluation of the abdomen. FINDINGS: LIVER: Measures 13.42 x 10.27 cm. Increased echogenicity of the liver parenchyma. No mass. No intrahepatic bile duct dilatation. GALLBLADDER: Unremarkable. No gallstones. COMMON BILE DUCT: Measures 3 mm. No stones. No dilatation. PANCREAS: Unremarkable as visualized. No mass. No ductal dilatation. RIGHT KIDNEY: Measures 10.36 x 3.53 x 4.18cm. Normal echogenicity. No calculus, mass, or hydronephrosis. LEFT KIDNEY: Measures 9.94 x 5.30 x 4.92cm. Normal echogenicity. No calculus, mass, or hydronephrosis. SPLEEN: Normal in size and contour. No mass. 8.67 x 3.63 AORTA: No aneurysmal dilatation. IVC: Unremarkable. OTHER FINDINGS: None. IMPRESSION: Echogenic liver consistent with fatty infiltration. No acute findings
[2018-11-08] MEDS: Oxycodone/Acetaminophen 5/325 mg Tab PO PRN (17:58)
--- NOTE | 2018-11-08 21:36 | PN ---
DATE: 11/08/2018 SUBJECTIVE: The patient is stable and comfortable. She complain of epigastric pain; otherwise, no chest pain, not seen yet by stretching press operator and the patient otherwise stable, no new complaints. PHYSICAL EXAMINATION: VITAL SIGNS: Today temperature 98.4, heart rate 90, blood pressure 104/67, and respirations 18. HEAD AND NECK: Normal. No JVD. No thyromegaly. CHEST: Clear bilaterally. CARDIAC: First sounds and second sounds normal. ABDOMEN: Soft, obese, and tender epigastric area. EXTREMITIES: No edema. NEUROLOGIC: Normal. LABORATORY DATA: Today white count 3.6, hemoglobin 8.7, hematocrit 27.9, and platelets 257. Chemistry: Sodium 140, potassium 4.1, chloride 111, bicarb 23, BUN 8, creatinine 0.7, and calcium 8.2. Troponin is negative. IMPRESSION AND PLAN: 1. Chest pain, etiology unclear, could be musculoskeletal. Cardiology to see the patient. 2. Hypotension, she is stable now, got IV fluid, continue that. 3. Gastritis, tender epigastric area, continue Protonix. 4. Bipolar disorder, schizoaffective disorder, continue . Continue psychiatric treatment. 5. Insomnia, on Ambien. The patient also has hypothyroidism, continue Synthroid. We will followup clinically. Abdominal ultrasound initial report was negative, we are still awaiting for initial report negative for any gallbladder disease. She has fatty liver; otherwise, no acute findings. Continue current therapy. Igor Ca MD
[2018-11-09] MEDS: Levothyroxine 100 MCG TAB PO SCH (05:51)
[2018-11-09] MEDS: Sodium Chloride 0.9% 1,000 ML IV SCH ×2 (05:54→20:25)
[2018-11-09] MEDS: Oxycodone/Acetaminophen 5/325 mg Tab PO PRN (06:50)
--- NOTE | 2018-11-09 13:17 | CON ---
DATE: 11/09/2018 HISTORY OF PRESENT ILLNESS: The patient is a 48-year-old Irish female with a history of schizophrenia, most prior psychiatric hospitalization, most recently discharged last month and currently ECT treatment with Dr. Ross, who is admitted to the medical floor to evaluate for symptoms of dizziness and inability to walk and rest pain. Psychiatrist consulted because of the patient's psychiatric history. I reviewed patient's assessment and recent notes, I spoke with patient at bedside and she is quiet pleasant and grateful character presenting much more coherently than she ever did during my prior consultations with her on the medical floor. She smiles readily and she is aware of current month, year, location and circumstances. Reports that she continues to take her psychiatric medications. Denies any issues with them. were not elicited. She seems calmer, less impulsive and more organized. Has much improved self-control than prior . She denies any major issues and primarily focused on her medical complaints of rest pain. Does not appear to be hallucinating or obsessed with synagogue. Her insight and judgement are fair. Vitals and labs were reviewed. MEDICATIONS: Relevant psychiatric medications include Cogentin 0.5 three times daily, Risperdal 2 three times daily, Ambien 5 mg at bedtime p.r.n. PSYCHIATRIC HISTORY: Patient was recently hospitalized in the psychiatric unit for an extended hospitalization. She was finally stabilized from the 09/12 to 10/31 with ECT. She has history of numerous prior admissions and is currently undergoing ECT treatment as an outpatient. She was discharged on mediation that she is currently being prescribed on the medical floor. When patient decompensates, she hallucinates, she is delusional, she is paranoid. She is histrionic. She can be violent and loud and overtly disorganized. She also tries to eat her own feces and drink her own urine during acute periods of disorganization and paranoia. SOCIAL HISTORY: She resides with her , she is an Irish. IMPRESSION: Schizoaffective disorder by history, appears to be stable at this time. RECOMMENDATIONS: We will continue with current treatment. There is no acute indication to change. At this time, she is stable and she is psychiatrically clear to continue with outpatient team management as well as the initial intake with this provider as scheduled for 11/21/2018. Ese Olmedo MD
[2018-11-09] MEDS ORDERED: Enoxaparin 60 mg Syringe SC STA (14:21)
--- NOTE | 2018-11-09 15:13 | US ---
HISTORY: Leg pain and swelling. Evaluate for DVT PHYSICIAN(S): Osmel Mcneal MD. TECHNIQUE: Duplex sonography and color-flow Doppler with graded compression were used to evaluate the deep venous systems of both lower extremities. FINDINGS: There is adherent partially occlusive thrombus noted in the right popliteal vein. Thrombus is somewhat echogenic. This likely represents subacute/chronic thrombus. The right femoral vein and right common femoral vein are patent and compressible. There is no sonographic evidence for deep venous thrombosis in the visualized segments of left lower extremity IMPRESSION: Subacute/chronic partially occlusive thrombus in the right popliteal vein
--- NOTE | 2018-11-09 16:06 | CON ---
DATE: 11/09/2018 CARDIOLOGY CONSULTATION (DR. TOWNSEND) HISTORY: The patient is a 48-year-old woman, who presents with right-sided focal chest discomfort, increased with palpation and increased with inspiration. PAST MEDICAL HISTORY: The patient's past medical history is notable for hypertension, intermittent palpitations, as well as diffuse arthritis, currently being treated with methotrexate The patient had an echocardiogram last month, which showed good LV function. No previous cardiac history is noted. Negative diabetes mellitus. SOCIAL HISTORY: The patient denies smoking. REVIEW OF SYSTEMS: Fourteen-point review of systems is reviewed in detail. She denies trauma to the chest wall. No edema in the lower extremities. PHYSICAL EXAMINATION: VITAL SIGNS: Blood pressure 123/75, the heart rate is in the 70s. NECK: Negative JVD. LUNGS: Without rales. CARDIOVASCULAR: Heart rate S1, S2. EXTREMITIES: Without edema. LABORATORY DATA: Laboratories include an EKG that shows poor R-wave progression with diffuse nonspecific ST-T changes. Troponins are negative x2. BUN and creatinine are unremarkable. Hemoglobin is 8.7. The CT scan does not reveal a pulmonary embolism. IMPRESSION: 1. Right-sided focal chest pain. 2. No evidence for acute coronary syndrome. 3. Abnormal echocardiogram. 4. Anemia. 5. Hypertension. 6. Hypothyroidism. PLAN: Given these findings, there is no evidence for acute coronary syndrome at this time. The patient is being worked up. If the patient is discharged, the patient may benefit from an outpatient stress test. No further cardiac workup is indicated at this time. Osmel Bustos MD
[2018-11-09] MEDS: Enoxaparin 80 mg Syringe SC SCH (18:01)
[2018-11-10] MEDS: Levothyroxine 100 MCG TAB PO SCH (06:34)
[2018-11-10] MEDS: Enoxaparin 80 mg Syringe SC SCH (06:35)
--- NOTE | 2018-11-10 07:24 | CP.PCM.PN ---
Subjective - Date & Time of Evaluation Date of Evaluation: 11/10/18 Time of Evaluation: 06:15 - Subjective Subjective: Sleeping but easily awaken, no distress, denies chest pain Reason for consultation and follow up: Cardiac evaluation of right sided focal chest discomfort, history of hypertension,palpitations, diffuse arthritis being treated with methotrexate. Seen and examined by me and Dr. Lloyd Objective - Vital Signs/Intake and Output Vital Signs (last 24 hours): Temp Pulse Resp BP Pulse Ox 99.0 F 89 20 122/70 94 L 11/10/18 00:01 11/10/18 02:00 11/10/18 00:01 11/10/18 00:01 11/10/18 00:01 Intake and Output: 11/10/18 11/10/18 06:59 18:59 Intake Total 100 Output Total 0 Balance 100 - Medications Medications: Current Medications Benztropine Mesylate (Cogentin) 0.5 mg PO TID [facility] Last Admin: 11/09/18 18:02 Dose: 0.5 mg Enoxaparin Sodium (Lovenox) 65 mg SC Q12H [facility]; Protocol Last Admin: 11/10/18 06:35 Dose: 65 mg Famotidine (Pepcid) 40 mg PO HS [facility] Last Admin: 11/09/18 22:43 Dose: 40 mg Sodium Chloride (Sodium Chloride 0.9%) 1,000 mls @ 100 mls/hr IV .Q10H [facility] Last Admin: 11/09/18 20:25 Dose: Not Given Levothyroxine Sodium (Synthroid) 100 mcg PO 0600 [facility] Last Admin: 11/10/18 06:34 Dose: 100 mcg Oxycodone/Acetaminophen (Percocet 5/325 Mg Tab) 1 tab PO Q6H PRN PRN Reason: Pain, severe (8-10) Stop: 11/11/18 17:49 Last Admin: 11/09/18 06:50 Dose: 1 tab Pantoprazole Sodium (Protonix Inj) 40 mg IVP DAILY [facility] Last Admin: 11/09/18 09:57 Dose: 40 mg Risperidone (Risperdal Tab) 2 mg PO TID [facility]; Protocol Last Admin: 11/09/18 18:02 Dose: 2 mg Zolpidem Tartrate (Ambien) 5 mg PO HS PRN; Protocol PRN Reason: Insomnia Last Admin: 11/07/18 23:56 Dose: 5 mg - Labs Labs: 11/08/18 06:00 11/08/18 06:00 - Constitutional Appears: Non-toxic, No Acute Distress - Head Exam Head Exam: NORMAL INSPECTION, NORMOCEPHALIC - Eye Exam Eye Exam: Normal appearance Pupil Exam: NORMAL ACCOMODATION - ENT Exam ENT Exam: Mucous Membranes Moist, Normal Exam - Neck Exam Neck Exam: Full ROM - Respiratory Exam Respiratory Exam: Decreased Breath Sounds, Clear to Ausculation Bilateral, NO RMAL BREATHING PATTERN - Cardiovascular Exam Cardiovascular Exam: +S1, +S2 - GI/Abdominal Exam GI & Abdominal Exam: Soft, Normal Bowel Sounds - Extremities Exam Extremities Exam: Full ROM, Normal Capillary Refill - Neurological Exam Neurological Exam: Alert, Awake, Oriented x3 - Psychiatric Exam Psychiatric exam: Normal Affect, Normal Mood - Skin Skin Exam: Dry, Normal Color, Warm Assessment and Plan - Assessment and Plan (Free Text) Assessment: A 48 year old female who came in to the ER due to right sided focal chest discomfort, history of hypertension, palpitations, diffuse rheumatoid arthritis being treated with methotrexate, right breast mastectomy, thyroid disease, and schizophrenia.CT of chest, unremarkable. Ultrasound of lower extremity showed subacute/chronic partially occlusive thrombus in the right popliteal vein.On Lovenox. Echo done on 10/16/18 showed LVEF 55%,trace MR/TR. Troponin normal x 2. Rule out acute myocardial ischemia. Will order stress test today. Plan: For Stress test today Heart rate stable Blood pressure stable On Lovenox 65 mg every 12 hours, Synthroid 100 mcg daily, Continue current treatment Continue current medications Will follow up Further recommendations after stress test Plan and treatment discussed with Dr. Lloyd
--- NOTE | 2018-11-10 09:06 | CP.PCM.PCO ---
Addendum Addendum: 11/10/18 09:05 (psychiatrist signed off), pt is scheduled for ECT 11/13/18 will d/w PMD .
--- NOTE | 2018-11-10 09:16 | HP ---
DATE OF EXAM: 11/07/2018 HISTORY OF PRESENT ILLNESS: The patient came to the hospital because of right-sided chest pain and breast area pain plus found to be hypotensive. The patient has otherwise no new complaints. She has chest pain comes and goes, it is more on the right side and it was also on the left side. She has chest pain intermittently all day. She came to the ER for evaluation. When she was here, her blood pressure was low. The patient's initial troponin was negative. When the patient was seen, there was no chest pain, but she felt better. The patient was seen in the emergency room when her blood pressure was 75/54. She denied any nausea, vomiting, fever, or chills. She takes all of her psych meds and stable. PAST MEDICAL HISTORY: History of bipolar disorder with severe depression, schizoaffective disorder and she is being currently on electroconvulsive therapy (ECT), which she responded very well psych rawls. She has esophageal narrowing due to previous radiation therapy to the chest for breast cancer. She has also urinary tract infection, one time renal sufficiency that improved, was due to dehydration. She has also gastritis, hypothyroidism, breast CA many years ago more than 20 years ago with mastectomy, radiation and chemo. Also, she has rheumatoid arthritis, she takes Humira and methotrexate for it. ALLERGIES: VANCOMYCIN. FAMILY HISTORY: Noncontributory. SOCIAL HISTORY: She lives with her . No smoking. No drinking. She is an immigrant from and she has high school education. REVIEW OF SYSTEMS: She does have generalized weakness. She does still feel on and off depressed, but much better than before. Dysphagia, occasionally happen, otherwise negative. She had no constipation, no rectal bleeding, no other problems. PHYSICAL EXAMINATION: VITAL SIGNS: On 11/07/2018, temperature 97.8, heart rate 83, blood pressure 75/54, respirations 18, sat 99%. HEAD AND NECK: Normal. No JVD. No thyromegaly. CHEST: Clear bilaterally. CARDIAC: First sound, second sound normal. No murmur, rub or gallop. ABDOMEN: Soft, some mild epigastric discomfort. EXTREMITIES: No edema. NEUROLOGIC: Normal. BREASTS: Right breast exam, there is old scar, otherwise no tenderness. LABORATORY DATA: White count 5, hemoglobin 9.4, hematocrit 30.2, and platelets 297. Chemistry; sodium 139, potassium is 3.5, chloride 104, bicarb 28, BUN 12, creatinine 0.7, blood sugar 133 and calcium 8.7, total bilirubin 0.5. AST is 38, ALT and alkaline phosphatase is normal. Troponin 0.01. She has also TSH 2.53. The patient has EKG, EKG shows cannot rule out anterior infarctions. Chest x-ray, no active disease. The patient had a CT chest that was negative with contrast. IMPRESSION AND PLAN: 1. Hypotension, etiology unclear. We will give the fluids, she responded well, could be medication related. She has similar episodes in psych unit, which did get better by , encourage p.o. intake. The patient does not have any signs of any sepsis. She has no fever, no hypothermia or hyperthermia and no chills, so we will see how the patient is doing. 2. Chest pain, get a cardiology evaluation. Troponin negative. We will repeat EKG in the morning. 3. Depression, schizoaffective disorder. Resume her psych meds, followup clinically. We will get a psychiatry consult . Continue current therapy, follow up clinically, continue IV fluid at 100 mL per hour. Igor Ca MD
[2018-11-10] MEDS: Oxycodone/Acetaminophen 5/325 mg Tab PO PRN (15:45)
--- NOTE | 2018-11-10 16:10 | CON ---
DATE: 11/10/2018 PULMONARY CONSULTATION NOTE REFERRING PHYSICIAN: Igor Ca MD REASON FOR CONSULTATION: DVT right popliteal vein, rule out PE, chest pain and cough. HISTORY OF PRESENT ILLNESS: This is 48-year-old female with past medical history significant for rheumatoid arthritis, breast cancer, status post mastectomy more than 20 years ago, the patient was treated with radiation and chemotherapy, thyroid disease, schizophrenia, gastritis, severe depression. The patient presented to emergency room complaining of right-sided chest pain and breast area pain for about 10 days. Family also reports patient had some dizziness and was unable to walk. When the patient presented to emergency room, she was hypotensive, blood pressure 75/54. Today, the patient reports difficulty taking deep breath, reports right breast/chest area pain. The patient reports dry cough. No shortness of breath. Denies any nausea, vomiting and abdominal pain. Ultrasound done 11/09/2018 showed subacute/chronic partially occlusive thrombus in a right popliteal vein. Currently scheduled to have CTA done; however, CT scan on 11/07/2018 showed small bilateral pleural effusions. Linear atelectasis with scarring at the left lung base. pulmonary embolism was identified. PAST MEDICAL HISTORY: As per HPI. ALLERGIES: VANCOMYCIN. FAMILY HISTORY: No cardiopulmonary disease reported. SOCIAL HISTORY: No history of smoking. No EtOH abuse. No illicit drug use. REVIEW OF SYSTEMS: No headache, rhinitis, shortness of breath, abdominal pain, nausea, vomiting, diarrhea, leg pain, or leg swelling reported. The patient does report cough with no sputum production. Does report right-sided chest pain and right breast pain. MEDICATIONS: Reviewed. Cogentin 0.5 mg p.o. three times a day, Lovenox 40 mg subcutaneous daily, Pepcid 40 mg at bedtime, Synthroid 100 mcg daily, Percocet 5/325 mg one tab every 6 hours p.r.n., Protonix 40 mg in morning, Risperdal 10 mg three times a day, Sodium chloride 0.9% 1000 mL at 100 mL per hour and Ambien 5 mg at bedtime p.r.n. PHYSICAL EXAM: GENERAL: No acute distress. VITAL SIGNS: Blood pressure 112/71, pulse 85, temperature 98.2 and oxygen saturation 94% on room air. HEENT: Moist mucous membranes. Crowded airway. NECK: Supple. No JVD. RESPIRATORY: Diminished breath sounds bilaterally. CARDIOVASCULAR: S1 and S2, audible. ABDOMEN: Soft and nontender. No distension. No organomegaly. EXTREMITIES: No bilateral lower extremity edema. NEUROLOGIC: Awake, alert and verbal. Follows simple commands. LABORATORY DATA: Reviewed. On 11/08/2018, WBC 3.6, RBC 3.23, hemoglobin 8.7, hematocrit 27.9 and platelets 257. Sodium 140, potassium 4.1, chloride 111, carbon dioxide 23, anion gap 10, BUN 8, creatinine 0.7, GFR greater than 60, random glucose 94, calcium 8.2 and troponin less than 0.01. Stress test report pending. Extremity ultrasound subacute/chronic partially occlusive thrombus in a right popliteal vein. Abdomen ultrasound shows echogenic liver consistent with fatty infiltration. Chest CT showed linear atelectasis with scarring of the left lung base. Small bilateral pleural effusions. IMPRESSION AND PLAN: Subacute/chronic deep venous thrombosis right lower extremity, acute bronchitis, suspect radiation induced pneumonitis, schizoaffective disorder, depression, chest pain. I will order procalcitonin, proBNP for the morning. We will start the patient on Brovana, Pulmicort and Mucomyst nebulizer treatment. We will start Solu-Medrol 20 mg every 12 hours. We will start doxycycline 100 mg twice a day. We will order sputum culture. The patient's echocardiogram from 10/16/2018 reviewed and shows ejection fraction 55%, right ventricular systolic pressure 25. CT ordered, we will review when available. This patient was seen and examined with Dr. Alves. Discussed assessment and plan as described above. Thank you for this consult. We will follow with you. Maurizio Perez APN Jasmine Alves MD
--- NOTE | 2018-11-10 16:30 | CARD ---
APPROVED REPORT Date of service: 11/10/2018 Protocol: LEXISCAN Test Type: Lexiscan Sestamibi Stress Test Attending Physician: Dr. Jasmine Beth Referring Physician: Dr. Igor Ca Test Indications: Chest Pain Height:5 ft 0 in Weight:142lbs Medications: COGENTIN, LOVENOX, PEPCID SYNTHROID, PERCOCET, PROTONIX RISPERDAL, AMBIEN Medical History: 48 YEAR OLD FEMALE WITH H/O HTN, HYPERTHYROID, BREAST CANCER WITH MASTECTOMY, LIVER TRANSPLANT Target HR: 173 bpm Resting ECG: RSR. Resting Heart Rate: 68 bpm Resting Blood Pressure: 120/70mmHg Submaximum (85%): 147 bpm PROCEDURE Pharmacologic stress testing was performed using 0.4mg per 5ml of regadenoson given intravenously over 7-10 seconds. Reversal agent aminophyline 100 mg, given intravenously for Dyspnea. POST EXERCISE Reason for Termination: Protocol completed Target HR: No Max HR: 85 bpm 81% of Maximum Predicted HR: 173 bpm Exercise duration: 00:31 min:sec, 0 Stage Exercise capacity: 1.0METs Max Blood Pressure: 120/70mmHg Blood Pressure response to exercise: normal resting BP - appropriate response Heart Rate response to exercise: appropriate Chest Pain: No, none Angina index: 0 Arrhythmia: No, none ST Change: No, none Deviation: 0 mm INTERPRETATION Stress EKG Conclusion: IV LEXISCAN NUCLEAR STRESS TEST NEGATIVE FOR CHEST PAIN AND NEGATIVE FOR ST-T CHANGES. NUCLEAR SCAN REPORT PENDING. Signed by Jasmine Beth Electronically Approved: 11/10/2018 11:56:10 EXAM: Myocardial Perfusion REST/STRESS Stress Test Type: Pharmacologic Imaging Protocol The imaging protocol used to acquire images was Rest Tc-99m/stress Tc-99m 1 day Rest Spect myocardial perfusion imaging was performed in supine position 50 minutes following the injection of 10.6 mCi of Tc-99 Myoview. At peak stress, the patient was injected intravenously with 30.9mCi of Tc-99 tetrofosmin after an infusion time of 0 minutes and 10 seconds. Gated Stress Spect was performed 65 minutes after intravenous Tc-99 Myoview injection. The images were gated to evaluate regional wall motion and calculate ventricular ejection fraction.Images were reconstructed using backfilter projection method in short horizontal and verticle long axis. Spect slices were generated. LV Perfusion The quality of the study is good. The left ventricle is normal in size. The right ventricle is unremarkable. The lung uptake is normal. The distribution of tracer reveals a small area of mildly to moderately decreased perfusion in the apical wall on the stress study. The remainder of the LV myocardium is unremarkable. The rest myocardial perfusion study shows partial improvement of the defect. Wall Motion Normal gated wall motion of the left ventricle. LVEF = 63%. Conclusion 1. Probably abnormal SPECT myocardial perfusion study. 2. Partially reversible, apical defect is suspious of ischemia. However, the effect of shifting breast artifact cannot be totally excluded. 3. Normal gated wall motion of the left ventricle.
--- NOTE | 2018-11-10 19:34 | PN ---
DATE: 11/10/2018 REASON FOR CONSULTATION: Followup, cardiac evaluation, chest pain right-sided, hypertension, palpitation, arthritis, history of psychiatric disorder and was in Psych floor, admitted to medical floor with chest pain though appears to be atypical. This note is in addition to dictated by the nurse practitioner, Jessica Dumont. Upon the patient's last admission on Psych floor had an echocardiography done that revealed dated 10/16/2018 ejection 55%, trace MR, and trace TR. So far troponin is negative,but given the multiple admission for chest pain, suggested stress test . The patient had a CT chest unremarkable, history of schizophrenia. RECOMMENDATIONS: Since the troponin remains flat, no evidence of acute [place]. We will discontinue Lovenox to DVT prophylaxis. Continue levothyroxine for hypothyroidism and we will get a stress today. Further recommendation after the stress test. So far, no evidence of acute [place] and okay to be discharged. We will get a stress test to keep her n.p.o. The patient had a history of DVT and PE. We will get the IV Lexiscan as well as get the midline IV line because the patient does not have any venous access. Once the venous access is established, we will get the stress test . We will change Lovenox to DVT prophylaxis and we will discontinue telemetry as well. Thank you Pamela Graham for providing us the opportunity in taking care of the patient, Yomaira Will. If any anemia workup to be done, we will discuss with Dr. Ca. This note is in addition to dictated by the nurse practitioner, Jessica Dumont. Jasmine Lloyd MD
[2018-11-10] MEDS: Budesonide 0.5 mg/2 ml Inhal Susp UD IH SCH (20:30)
[2018-11-10] MEDS: Arformoterol 15 mcg/2 ml Inh Sol IH SCH (20:30)
[2018-11-10] MEDS: Acetylcysteine 20% Inhal Soln (4ml) IH SCH (20:30)
[2018-11-10] MEDS ORDERED: Iodixanol 320 MG/ML 100 ML BOTTLE IV ONE (20:56)
[2018-11-10 22:11] LABS: HEMOGLOBIN 9.2 g/dL (12.0-16.0); MEAN CELL VOLUME 86.7 fl (80.0-105.0); MEAN CORPUSCULAR HEMOGLOBIN 27.8 pg (25.0-35.0); MEAN CORPUSCULAR HGB CONC 32.1 g/dl (31.0-37.0); MEAN PLATELET VOLUME 9.4 fl (7.0-11.0); RBC 3.31 10^6/uL (3.5-6.1); RED CELL DISTRIBUTION WIDTH 16.6 % (11.5-14.5); WHITE BLOOD COUNT 4.9 10^3/uL (4.5-11.0)
[2018-11-10] MEDS: MethylPREDNISolone 40 mg Vial IVP SCH (22:46)
[2018-11-11] MEDS: Levothyroxine 100 MCG TAB PO SCH (05:58)
[2018-11-11 06:50] LABS: B-TYPE NATRIURETIC PEPTIDE 143 pg/mL (0-450)
[2018-11-11 06:58] LABS: HEMOGLOBIN 9.8 g/dL (12.0-16.0); MEAN CORPUSCULAR HEMOGLOBIN 27.1 pg (25.0-35.0); MEAN CORPUSCULAR HGB CONC 31.9 g/dl (31.0-37.0); RBC 3.61 10^6/uL (3.5-6.1); RED CELL DISTRIBUTION WIDTH 16.3 % (11.5-14.5); WHITE BLOOD COUNT 4.4 10^3/uL (4.5-11.0)
--- NOTE | 2018-11-11 07:08 | CP.PCM.PN ---
Subjective - Date & Time of Evaluation Date of Evaluation: 11/11/18 Time of Evaluation: 06:50 - Subjective Subjective: Awake, alert, no distress, denies chest pain Reason for consultation and follow up: Cardiac evaluation of right sided focal chest discomfort, history of hypertension,palpitations, diffuse arthritis being treated with methotrexate. Seen and examined by me and Dr. Beth Objective - Vital Signs/Intake and Output Vital Signs (last 24 hours): Temp Pulse Resp BP Pulse Ox 97.6 F 75 18 127/63 99 11/10/18 23:20 11/10/18 23:20 11/10/18 23:20 11/10/18 23:20 11/10/18 23:20 Intake and Output: 11/11/18 11/11/18 06:59 18:59 Intake Total 0 Output Total 0 Balance 0 - Medications Medications: Current Medications Acetylcysteine (Acetylcysteine 20%) 4 ml IH BIDRESP [facility] Last Admin: 11/10/18 20:30 Dose: 4 ml Arformoterol Tartrate (Brovana) 15 mcg IH [id number] [facility] Last Admin: 11/10/18 20:30 Dose: 15 mcg Benztropine Mesylate (Cogentin) 0.5 mg PO TID [facility] Last Admin: 11/10/18 17:38 Dose: 0.5 mg Budesonide (Pulmicort Respules) 0.5 mg IH [id number] [facility] Last Admin: 11/10/18 20:30 Dose: 0.5 mg Doxycycline Hyclate (Doryx) 100 mg PO Q12 [facility]; Protocol Last Admin: 11/10/18 22:46 Dose: 100 mg Enoxaparin Sodium (Lovenox) 40 mg SC DAILY [facility]; Protocol Famotidine (Pepcid) 40 mg PO HS [facility] Last Admin: 11/10/18 22:46 Dose: 40 mg Sodium Chloride (Sodium Chloride 0.9%) 1,000 mls @ 100 mls/hr IV .Q10H [facility] Last Admin: 11/09/18 20:25 Dose: Not Given Levothyroxine Sodium (Synthroid) 100 mcg PO 0600 [facility] Last Admin: 11/11/18 05:58 Dose: 100 mcg Methylprednisolone (Solu-Medrol) 20 mg IVP Q12 [facility] Last Admin: 11/10/18 22:46 Dose: 20 mg Oxycodone/Acetaminophen (Percocet 5/325 Mg Tab) 1 tab PO Q6H PRN PRN Reason: Pain, severe (8-10) Stop: 11/11/18 17:49 Last Admin: 11/10/18 15:45 Dose: 1 tab Pantoprazole Sodium (Protonix Ec Tab) 40 mg PO ACB DAT Risperidone (Risperdal Tab) 2 mg PO TID [facility]; Protocol Last Admin: 11/10/18 17:38 Dose: 2 mg Zolpidem Tartrate (Ambien) 5 mg PO HS PRN; Protocol PRN Reason: Insomnia Last Admin: 11/10/18 22:46 Dose: 5 mg - Labs Labs: 11/11/18 05:30 - Constitutional Appears: Non-toxic, No Acute Distress - Head Exam Head Exam: NORMAL INSPECTION, NORMOCEPHALIC - Eye Exam Eye Exam: Normal appearance Pupil Exam: NORMAL ACCOMODATION - ENT Exam ENT Exam: Mucous Membranes Moist, Normal Exam - Respiratory Exam Respiratory Exam: Decreased Breath Sounds, Clear to Ausculation Bilateral, NORMAL BREATHING PATTERN - Cardiovascular Exam Cardiovascular Exam: +S1, +S2 - GI/Abdominal Exam GI & Abdominal Exam: Soft, Normal Bowel Sounds - Extremities Exam Extremities Exam: Full ROM, Normal Capillary Refill - Neurological Exam Neurological Exam: Alert, Awake, Oriented x3 - Psychiatric Exam Psychiatric exam: Normal Affect, Normal Mood - Skin Skin Exam: Dry, Normal Color, Warm Assessment and Plan - Assessment and Plan (Free Text) Assessment: A 48 year old female who came in to the ER due to right sided focal chest di [place], history of hypertension, palpitations, diffuse rheumatoid arthritis being treated with methotrexate, right breast mastectomy, thyroid disease, and schizophrenia.CT of chest, unremarkable. Ultrasound of lower extremity showed subacute/chronic partially occlusive thrombus in the right popliteal vein.On Lovenox. Echo done on 10/16/18 showed LVEF 55%,trace MR/TR. Troponin normal x 2. Rule out acute myocardial ischemia. Stress test done yesterday. LVEF 63%. Partially reversible apical defect suspicious of ischemia, however the effect of shifting breast artifact cannot be totally excluded, normal LV wall motion. CT of chest to rule out PE. Pulmonary on consult. Plan: No distress, denies chest pain Heart rate stable Blood pressure stable Will schedule cardiac cath Synthroid 100 mcg daily,Lovenox 40 mg daily,Solumedrol 20 mg IV every 12 hours Continue current treatment Continue current medications Will follow up Plan and treatment discussed with Dr. Beth
[2018-11-11 07:22] LABS: BLOOD UREA NITROGEN 11 mg/dL (7-21); CALCIUM 9.1 mg/dL (8.4-10.5); GFR NON-AFRICAN AMERICAN > 60
[2018-11-11] MEDS ORDERED: Pantoprazole 40 mg EC Tab PO SCH (07:30)
[2018-11-11] MEDS: Acetylcysteine 20% Inhal Soln (4ml) IH SCH (07:59)
[2018-11-11] MEDS: Budesonide 0.5 mg/2 ml Inhal Susp UD IH SCH (07:59)
[2018-11-11] MEDS: Arformoterol 15 mcg/2 ml Inh Sol IH SCH (07:59)
--- NOTE | 2018-11-11 08:56 | CT ---
Date of service: 11/10/2018 PROCEDURE: CT Chest with contrast (Pulmonary Angiogram) HISTORY: DVT and chest pain; R/O PE COMPARISON: 11/07/2018 TECHNIQUE: Axial computed tomography images were obtained of the chest in the pulmonary arterial phase of enhancement. Coronal and sagittal reformatted images were created and reviewed. Intravenous contrast dose: 100 cc of Visipaque 320 Radiation dose: Total exam DLP = 308.54 mGy-cm. This CT exam was performed using one or more of the following dose reduction techniques: Automated exposure control, adjustment of the mA and/or kV according to patient size, and/or use of iterative reconstruction technique. FINDINGS: PULMONARY ARTERIES: Unremarkable. No pulmonary embolism. AORTA: No acute findings. No thoracic aortic aneurysm. No aortic atherosclerotic calcification or mural plaque present. LUNGS: Consolidation in the right lower lobe adjacent to the moderate size pleural effusion. PLEURAL SPACES: There is a moderate size right pleural effusion which has increased in size. There is adjacent consolidation in the right lower lobe HEART: Unremarkable. No cardiomegaly. No significant pericardial effusion. LYMPH NODES: No lymphadenopathy. BONES, CHEST WALL: Unremarkable. No fracture or destructive lesion OTHER FINDINGS: Unremarkable. IMPRESSION: Increasing right-sided pleural effusion and adjacent consolidation in the right lower lobe No evidence of pulmonary embolus
[2018-11-11] MEDS: MethylPREDNISolone 40 mg Vial IVP SCH (09:47)
[2018-11-11] MEDS ORDERED: Enoxaparin 40 mg Syringe SC SCH (10:00)
--- NOTE | 2018-11-11 11:45 | PN ---
DATE: 11/11/2018 PULMONARY PROGRESS NOTE REFERRING PHYSICIAN: Igor Ca MD SUBJECTIVE: The patient is sitting up in bed. No acute distress. No overnight events reported. The patient denies chest pain. No headache, rhinitis, cough, shortness of breath, abdominal pain, nausea, vomiting, diarrhea, leg pain or leg swelling reported. The patient does report some chest tightness on deep breaths. OBJECTIVE: GENERAL: No acute distress. VITAL SIGNS: Blood pressure 127/63, pulse 75, temperature 97.6 and oxygen saturation 99%. HEENT: Moist mucous membranes. Crowded airway. NECK: Supple. No JVD. RESPIRATORY: Diminished breath sounds bilaterally. CARDIOVASCULAR: S1 and S2 audible. ABDOMEN: Soft and nontender. No distention. No organomegaly. EXTREMITIES: No bilateral lower extremity edema. NEUROLOGIC: Awake, alert, and verbal. Follows simple commands. MEDICATIONS: Reviewed. Mucomyst 4 mL inhalation twice a day, Brovana 15 mcg every 12 hours, Cogentin 0.5 mg 3 times a day, Pulmicort 0.5 mg every 12 hours, doxycycline 100 mg every 12 hours, Lovenox 40 mg subcutaneous daily, Pepcid 40 mg at bedtime, Synthroid 100 mcg daily, Solu-Medrol 20 mg every 12 hours, Percocet 5/325 mg one tab every 6 hours p.r.n., pantoprazole 40 mg in the morning, Risperdal 2 mg three times a day, Sodium chloride 0.9% 1000 mL at 100 mL per hour and Ambien 5 mg p.o. at bedtime p.r.n. LABORATORY DATA: Reviewed. WBC 4.4, RBC 3.61, hemoglobin 9.8, hematocrit 30.7, and platelets 275. Sodium 139, potassium 4.1, chloride 108, carbon dioxide 24, anion gap 12, BUN 11, creatinine 0.7, GFR greater than 60, random glucose 132, calcium 9.1, Pro-BNP 143. DIAGNOSTIC DATA: Myocardial stress test shows probably at normal SPECT myocardial perfusion study partially reversible apical defects is suspicious of ischemia; however, the fact of shifting breaths artifact cannot be totally excluded and it showed normal gated wall motion of the left ventricle. Chest CT showed, increasing right side pleural effusion and adjacent consolidation in the right lower lobe. No evidence of pulmonary embolism. IMPRESSION AND PLAN: Deep venous thrombosis right lower extremity, acute bronchitis, schizoaffective disorder, depression, chest pain, rheumatoid arthritis, right breast mastectomy, hypothyroidism. Procalcitonin is pending, we will review when available. Continue Cardiology followup. Continue inhaled bronchodilators, continue antibiotic therapy, continue steroids. Cardiology note appreciated. The patient to be scheduled for cardiac cath. This patient was seen and examined with Dr. Alves. Discussed assessment and plan as described above. Thank you for this consult and we will follow with you. Maurizio PrudeJAE briones Jasmine Alves MD
--- NOTE | 2018-11-11 11:59 | PN ---
DATE: 11/10/2018 SUBJECTIVE: The patient seen in the morning, , kids are around her. She underwent intravenous Doppler which came back positive for possible subacute DVT, popliteal vein. We will discuss with the patient the plans. She is also going for stress test by Dr. Lloyd. Has no other complaint. No new complaint. PHYSICAL EXAMINATION: On 11/10/2018, VITAL SIGNS: Temperature is 98.2, heart rate 85, blood pressure 112/71, saturating 94% on room air. HEENT: Head and neck normal. No JVD. No thyromegaly. CHEST: Clear bilateral. CARDIAC: First sound and second sound normal. ABDOMEN: Soft, mild epigastric tenderness. EXTREMITIES: No edema. NEUROLOGICAL EXAM: Normal. LABORATORY DATA: 11/10/2018, white count 4.9, hemoglobin 9.2, hematocrit 28.7, platelets 259. Chemistry is as follows: Sodium 140, potassium 4.1, chloride 111, bicarb 23, BUN 8, creatinine 0.7, troponin x2 is negative. IMPRESSION AND PLAN: 1. Chest pain and dyspnea. Stress test by Dr. Lloyd was begun and will follow up after the nuclear stress test. 2. Deep vein thrombosis. We will get a CT angiogram if it is negative. We will hold off on any heparinization maximum dose and will discuss with the licensed investment sales assistant, but recommended treatment for subacute deep venous thrombosis, popliteal. 3. Anemia, iron deficiency. We will follow and monitor hemoglobin and hematocrit. 4. Hypothyroidism. 5. Schizoaffective disorders. Continue current psych meds. Seen by Dr. Leon. We will follow up clinically. In case of positive stress test, the patient will undergo angiogram of the coronary arteries if Dr. Lloyd recommended, and we will continue intravenous fluids. Igor Ca MD
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
--- NOTE | 2018-11-11 15:07 | US ---
HISTORY: Leg pain and swelling. Evaluate for DVT PHYSICIAN(S): Osmel Mcneal MD. TECHNIQUE: Duplex sonography and color-flow Doppler with graded compression were used to evaluate the deep venous systems of both lower extremities. FINDINGS: Adherent chronic thrombus noted in the right popliteal vein. Chronic thrombus is also noted in the right peroneal vein. The right femoral vein and right common femoral vein are patent and compressible. There is no sonographic evidence for deep venous thrombosis in the visualized segments of left lower extremity IMPRESSION: Chronic partially occlusive adherent thrombus in the right popliteal vein
--- NOTE | 2018-11-11 15:48 | PN ---
DATE: 11/09/2018 SUBJECTIVE: The patient is lying in bed, is comfortable. No distress. Seen by customer relations consultant Dr. Osmel Bustos this morning with me. The patient still complains some chest pain on the right side, it was also on the left, and she complains also of short of breath intermittently. She has no fever, no chills, no other complaints, no leg pain. PHYSICAL EXAMINATION: VITAL SIGNS: Temperature 97.7, heart rate 92, blood pressure 117/75, and respirations 18. HEAD AND NECK: Normal. No JVD. No thyromegaly. CHEST: Clear bilateral. CARDIAC: First sound and second sound normal. No murmur, rub or gallop. ABDOMEN: Soft. There is mild epigastric tenderness and there is right sided chest wall tenderness, more lateral than right. EXTREMITIES: Lower extremities, no swelling and no edema. NEUROLOGIC: Exam is normal. LABORATORY DATA: Last laboratory shows chemistry was within normal range and CBC shows hemoglobin of 8.7, hematocrit 27.9, white count 3.6, and platelets 257. IMPRESSION: 1. Chest pain, dyspnea. We are concerned about any pulmonary embolism; however, she responded slow, she did well. It would not happen without significant pulmonary embolism hypotension to respond gently without much symptoms; however, since the patient has cancer, patient's hypercoagulable state, I am going to get a venous Doppler of lower extremity and also consider CT angiogram. We will get also Pulmonary consult. If venous Doppler is positive, we will put the patient on heparin, Lovenox. We will get a CT angiogram. 2. Chest pain. We will get Cardiology, Dr. Osmel Bustos, and Dr. Lloyd will see the patient in the morning. At this time, we will continue to monitor her. She has troponin x2 negative. 3. Anemia, it is iron-deficiency anemia, etiology unclear. She was seen like two months ago with Dr. Bob and he did endoscopy; however, we will consider GI evaluation if we are going to put the patient on any anticoagulants because of risk of bleeding. We will continue to monitor. 4. Bipolar schizoaffective disorder. Continue current psych therapy. 5. Hypothyroidism. Continue levothyroxine. PLAN: Continue current treatment. Follow up clinically. We will discuss further after the testing done and consultants see the patient. Igor Ca MD [facility] # [id number]
[2018-11-11 17:03] VITALS: BP 129/74; PULSE 91; RESP 19; TEMP 98.9; O2SAT 95
--- NOTE | 2018-11-11 19:04 | PN ---
DATE: 11/11/2018 The patient's progress note has been already written by Jessica Dumont. This is an additional note. SUBJECTIVE: The patient had stress test yesterday and nuclear scan is positive for ischemia. I discussed the catheterization with the patient and the patient wanted me to talk to her daughter, which I called and spoke to the daughter and explained the procedure and she is going to discuss with the mother and the father and as soon as let me know about getting the cardiac catheterization. In the meantime, we will continue present therapy. We will follow. Jasmine Beth MD
--- NOTE | 2018-11-12 10:26 | CP.PCM.PCO ---
Physician Communication Note - Physician Communication Note Physician Communication Note: pt was not seen by this fiction writer this admission, signed off.
--- NOTE | 2018-11-12 10:31 | CP.PCM.PCO ---
Addendum Addendum: 11/12/18 10:29 was contacted, pt has a lot of medical issues now, pt is scheduled for cardiac cath 11/17/18, ECT will be canceled tomorrow was advised to contact this casualty underwriter when pt will be medically cleared. pt's approached this casualty underwriter 11/11/18, reported that pt is doing "very well from psychiatric standpoint" but has a lot of medical issues. was advised to f/u with PMD/lan specialist and psychiatrist as scheduled.
== END 2018-11-11 18:34 | disposition home or self-care (01) | DRG 543 ==
LOC: ED 09:40 → ERH 15:09 → 2RNO 20:57 → OBSVTOIN 11-10 13:02 → 3RNO 11-10 23:26
PROVIDERS: ADMIT Internal Medicine; ATTEND Internal Medicine
DX: R07.89 Other chest pain (principal); I82.431 Acute embolism and thrombosis of right popliteal vein; N64.4 Mastodynia; F25.0 Schizoaffective disorder, bipolar type; E86.0 Dehydration; I95.9 Hypotension, unspecified; I10 Essential (primary) hypertension; E03.9 Hypothyroidism, unspecified; R13.10 Dysphagia, unspecified; K29.70 Gastritis, unspecified, without bleeding; G47.00 Insomnia, unspecified; M06.9 Rheumatoid arthritis, unspecified; D50.9 Iron deficiency anemia, unspecified; J20.9 Acute bronchitis, unspecified; K76.0 Fatty (change of) liver, not elsewhere classified; Z85.3 Personal history of malignant neoplasm of breast; Z90.11 Acquired absence of right breast and nipple; Z92.21 Personal history of antineoplastic chemotherapy; Z92.3 Personal history of irradiation

== ENCOUNTER 2018-11-20 06:29 | Day surgery (SDC) | payer MEDICAID ==
[2018-11-20 07:42] LABS: BASO # 0.01 K/mm3 (0.0-2.0); BASO % 0.2 % (0.0-3.0); BLOOD UREA NITROGEN 18 mg/dL (7-21); EOS # 0.1 (0.0-0.7); EOS % 3.2 % (1.5-5.0); GFR NON-AFRICAN AMERICAN > 60; GRAN # 1.49 (1.4-6.5); GRAN % 34.5 % (50.0-68.0); HDL CHOLESTEROL 41 mg/dL (29-60); HEMOGLOBIN 9.6 g/dL (12.0-16.0); LYMPH # 2.2 (1.2-3.4); LYMPH % 50.6 % (22.0-35.0); MEAN CELL VOLUME 86.7 fl (80.0-105.0); MEAN CORPUSCULAR HEMOGLOBIN 27.2 pg (25.0-35.0); MEAN CORPUSCULAR HGB CONC 31.4 g/dl (31.0-37.0); MEAN PLATELET VOLUME 8.8 fl (7.0-11.0); MONO # 0.5 (0.1-0.6); MONO % 11.5 % (1.0-6.0); RBC 3.53 10^6/uL (3.5-6.1); WHITE BLOOD COUNT 4.3 10^3/uL (4.5-11.0)
[2018-11-20 07:45] LABS: INR 0.97; PARTIAL THROMBOPLASTIN TIME 25.1 Seconds (25.1-36.5); PROTHROMBIN TIME 11.2 SECONDS (9.4-12.5)
[2018-11-20 07:49] LABS: LDL CHOLESTEROL 112 mg/dL (0-129)
[2018-11-20] MEDS ORDERED: Lidocaine 2% Inj (20ml) ONE (09:31)
[2018-11-20] MEDS ORDERED: Midazolam 2 MG/2 ML VIAL ONE ×2 (09:32→10:11)
[2018-11-20] MEDS ORDERED: Iohexol 350mgl/ml 50 ML ONE (09:32)
[2018-11-20] MEDS ORDERED: Iodixanol 320 MG/ML 200 ML BOTTLE IV ONE (09:33)
[2018-11-20] MEDS ORDERED: Nitroglycerin 50mg in D5W 0 MG/0 ML BOTTLE IV ONE (09:33)
[2018-11-20] MEDS ORDERED: Sodium Chloride 0.9% 1,000 ML IV SCH (10:45)
[2018-11-20 10:51] VITALS: TEMP 97.5
--- NOTE | 2018-11-20 11:16 | CPOSTOP ---
DATE: 11/20/2018 CARDIOVASCULAR LAB POSTPROCEDURE NOTE PHYSICIAN: Dr. Jasmine Lloyd. SLATE CUTTER: Alfie Biggs, correctional maintenance technician. TYPE OF ANESTHESIA: Moderate conscious sedation. Total 2 mg of Versed and 100 of fentanyl given, periodically started 1 mg of versed and 50 of fentanyl. PRE-PROCEDURE DIAGNOSIS: Unstable angina, abnormal stress test. PROCEDURES PERFORMED: Left heart catheterization. FINDINGS: Nonobstructive coronary artery disease, distal LAD diffusely disease, but no flow limiting obstructive disease noted. FINAL DIAGNOSIS: Nonobstructive coronary artery disease. POST-PROCEDURE: The patient's condition is stable. VASCULAR ACCESS SITE: Right femoral artery for the arterial access and right femoral vein for the venous access because the patient does not have any venous access. CLOSURE DEVICE: Angio-Seal for right femoral artery, Mynx for right venous, right femoral vein. TOTAL RADIATION DOSE: 2201.79 milligray unit. FLUORO TIME: 2.9 minutes. RECOMMENDATION: Medical treatment. Jasmine Lloyd MD [facility]
[2018-11-20 12:03] VITALS: RESP 16
[2018-11-20 12:05] VITALS: O2SAT 98
[2018-11-20 13:02] VITALS: BP 108/70; PULSE 60
--- NOTE | 2018-11-20 13:43 | HP ---
DATE OF EXAM: 11/19/2018 REASON FOR ADMISSION: Left heart catheterization, possible angioplasty, abnormal stress test. BRIEF CLINICAL HISTORY: This is a 48-year-old female with past medical history significant for psychiatric disorder, initially admitted on 10/15/2018 to the psych floor where the patient was complaining of chest pain, preoperative evaluation for ECT. Later on, the patient was admitted to the medical floor with chest pain. The patient underwent echo and stress test was abnormal. The patient was discharged home on the day of stress test and the patient is scheduled for elective cardiac catheterization, possible angioplasty. PAST MEDICAL HISTORY: Significant for chest pain, history of schizoaffective disorder, history of breast CA, also significant for hypothyroidism, iron-deficiency anemia, longstanding history of psychosis, and CA breast as mentioned. PAST SURGICAL HISTORY: Significant for mastectomy in 2003 and status post reconstruction surgery in 2012. SOCIAL HISTORY: Denies smoking. Denies any history of alcohol abuse. CURRENT MEDICATIONS: The patient at home was taking Risperdal, vitamin A, spironolactone, levothyroxine, folic acid, calcium, aspirin, and Humira. ALLERGIES: TO VANCOMYCIN. PREVIOUS CARDIAC WORKUP: As follows; the patient had echocardiography done on 10/16/2018 that showed ejection fraction 55%, trace mitral regurgitation, and trace tricuspid regurgitation. The patient had a stress test dated 11/10/2018 that showed probably abnormal myocardial perfusion study, partially reversible apical defect suspicious for ischemia; however, changing position of the breast cannot be excluded. REVIEW OF SYSTEMS: As per HPI. PHYSICAL EXAMINATION: VITAL SIGNS: Height of the patient 4 feet 11 inches, weight of the patient 140 pounds, and body mass index 28.3 kg/m2. Temperature afebrile, heart rate 70, and blood pressure 130/80. HEENT: PERRLA. Extraocular muscles intact. NECK: Supple. No carotid bruit or thyromegaly. CHEST: Clear to auscultation. HEART: S1 and S2 regular. ABDOMEN: Soft. EXTREMITIES: Clubbing and cyanosis negative. LABORATORY DATA: Blood work up as of 11/11/2018; WBC 4.4, hemoglobin 10.9, hematocrit 30.7, and platelet count 275. Chemistries shows sodium 139, potassium 4.1, chloride 108, carbon dioxide 29, anion gap of 12, BUN 11, and creatinine 0.7. EKG shows normal sinus. IMPRESSION: A 48-year-old female with past medical history significant for hypothyroidism, history of breast cancer in the past, history of breast reconstruction surgery, history of psychiatric disorder, admitted with chest pain, abnormal stress test, history of prediabetes, hypertension, and hyperlipidemia. RECOMMENDATIONS: We will review the lab for today. Load with aspirin and Plavix. Risks, benefits, and alternatives were discussed with the patient and the patient agreed to proceed for cardiac catheterization. The patient had abnormal stress test dated 11/10/2018 suspicious for anteroseptal ischemia. Further recommendations during the hospital course. We will follow with you. Thank you Dr. Ca for providing us the opportunity in taking care of the patient, Yomaira Will. Jasmine Lloyd MD MTDYuniel
--- NOTE | 2018-11-20 17:36 | CARD ---
APPROVED REPORT Date of service: 11/20/2018 Procedure(s) performed: Left Heart Catheterization HISTORY The patient is a 48 year-old female with a history of : most recent EF: 63%. (EF Method: RADIONUCLIDE), hypertension , Had an abnormal stress test, sarah-apical ischemia. INDICATION The indication(s) include : positive stress test. CASE TECHNIQUE The patient was brought electively to the Cardiac Catheterization Laboratory in a fasting state and was prepped and draped in a sterile manner. The right femoral groin was infiltrated with 2% Lidocaine subcutaneous anesthesia. A sheath was inserted into the right femoral artery without difficulty. Coronary angiography was performed using coronary diagnostic catheters. The left coronary system was accessed and visualized with a Diagnostic ,5F JL 4 CATH DXT 100 CM catheter. The right coronary system was accessed and visualized with a Diagnostic ,5F JR 4 CATH DXT 100 CM catheter. The left ventricle was accessed and visualized with a 5F PIGTAIL 145 CATH DXT 110 CM catheter. Left ventricular/Aortic Valve gradient assessed on pullback. Left ventriculogram was performed in OSWALD projection. Closure device was deployed with a 6 Fr / 7 Fr MynxGrip without any complications. The patient tolerated the procedure well and there were no complications associated with the procedure. Vessel Analysis The patient's coronary anatomy is right dominant. The left main coronary artery is a medium size vessel without significant stenosis. The left main bifurcates to the left anterior descending and circumflex. The left anterior descending artery is a medium size vessel with diffuse calcification noted throughout this vessel and without significant stenosis. There is a 50-55% stenosis in the very distal segment. Diffusely Diseased, tappering but no flow limiting stenosis The first diagonal branch is a small size vessel with intimal irregularities and without significant stenosis. The second diagonal branch is a medium size vessel with intimal irregularities and without significant stenosis. The circumflex artery is a medium size vessel with intimal irregularities and without significant stenosis. The first obtuse marginal branch is a small size vessel with intimal irregularities and without significant stenosis. The second obtuse marginal branch is a small size vessel with intimal irregularities and without significant stenosis. The third obtuse marginal branch is a medium size vessel without significant stenosis. The right coronary artery is a large size vessel with intimal irregularities and without significant stenosis. The right posterior descending artery is a medium size vessel without significant stenosis. The right posterolateral branch is a medium size vessel without significant stenosis. Left Ventricle The left ventricle is normal in size with normal contractility. There was no cardiomyopathy. The left ventricular ejection fraction is estimated to be 55%. The left ventricular end diastolic pressure is 12 mmHg. There was no gradient across the aortic valve upon pullback. Conclusion Non -obstructive CAD limited to Very Distal LAD is Diffusely diseased ( tapperring), which is non flow limiting stenosis. Preserved Lv FGx. EF-55%, EDP_12 mmof Hg. Recommendations Aggressive Medical TherapyCardiac Risk Reduction Program CC; Arnoldo Almanza MD.
== END 2018-11-20 14:30 | disposition home or self-care (01) ==
LOC: CATH 06:29
PROVIDERS: ATTEND Internal Medicine Cardiovascular Disease
DX: I25.10 Atherosclerotic heart disease of native coronary artery without angina pectoris (principal); I10 Essential (primary) hypertension; E03.9 Hypothyroidism, unspecified; D50.9 Iron deficiency anemia, unspecified; E78.5 Hyperlipidemia, unspecified; R73.03 Prediabetes; F25.9 Schizoaffective disorder, unspecified; Z85.3 Personal history of malignant neoplasm of breast; Z90.10 Acquired absence of unspecified breast and nipple
CPT/HCPCS: 36415; 80048; 80061; 84703; 85025; 85610; 85730; 86850; 86900; 93458; 99152; C1713; C1760 ×2; C2629; J1644; J2250; J3010; J7030; J7040; Q9966

== ENCOUNTER 2018-11-27 08:04 | Day surgery (SDC) | payer MEDICAID ==
[2018-11-27] MEDS ORDERED: Propofol 10 mg/ml Inj (20 ML) ONE (10:50)
[2018-11-27] MEDS ORDERED: Succinylcholine 200 mg/10 ml Inj IV ONE (10:50)
[2018-11-27] MEDS ORDERED: Lactated Ringer's 1,000 ML IV SCH (11:15)
[2018-11-27 12:03] VITALS: RESP 18; TEMP 98; O2SAT 98
[2018-11-27 12:30] VITALS: BP 100/60; PULSE 88
--- NOTE | 2018-11-27 15:32 | CP.PCM.HP ---
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 pt improved significantly on ECT treatment, pt had 8ECT treatments while being inpatient psych. pt was discharged and came for outpatient ECT procedure. Presently pt is doing "very well" as per pt's Car, who accompanied pt today. pt was seen in OR, pt singed consent for treatment, pt had a capacity to do so. discussed with pt's Car, who is next to the pt, pt gave permission to discuss tx with her . as per , pt is doing "very well, we are all happy to have her back", pt is compliant with meds and f/u appts. pt is compliant with meds, denied any side effects. BL ECT treatment #1 10/17/18, tolerated that well BL ECT treatment #2 10/20/18 tolerated it well BL ECT treatment #3 10/21/18 tolerated it well BL ECT treatment #4 10/22/18, tolerated well BL ECT treatment #5 10/23/18, tolerated well BL ECT treatment #6 10/27/18, pt had adequate seizures at 150% 0.30ms BL, 70Hz, 8sec, charge 269mC, energy 47.3J, pt had 16sec of motor and EEG seizures, which was considered to be 53% adequate. BL ECT treatment #7 10/29/18, pt needed to have 3tx in order to have adequate seizures. BL ECT treatment #8 10/31/18 pt tolerated it well. ECT treatment #9 11/06/17, used the same parameters as last ECT treatment because pt had adequate seizures. 0.5ms BL, frequency of 90Hz 8sec, charge 576mC, energy 101.4J at 220 ohms, impedance 630 pt had about 19sec of motor seizures which was considered to be 94%likely adequate therapeutic seizures by MECTA analysis. pt tolerated treatment well. pt will be accompanied by her back home, pt missed 11/13/18 ECT because of the cardiac cath, was negative discussed with and (PMD and mine engineering superintendent) who both cleared pt for ECT procedure, please see notes for more detailed information. 11/27/18 ECT treatment #10, used the same parameters as last ECT treatment because pt had adequate seizures. 0.5ms BL, frequency of 90Hz 8sec, charge 576mC, energy 101.4J at 220 ohms, impedance 630 pt had about 21sec of motor seizures which was considered to be 67%likely adequate therapeutic seizures by MECTA analysis. pt tolerated treatment well. with the plan to give ECT tx every other week for one month, next tx is 12/11/18, after that 12/25/18 every other week for the next month, after that once a month tx. Patient will continue Risperdal 2 mg 3 times a day for psychosis Cogentin 0.5 mg 3 times a day for possible EPS Ambien 5 mg at the nighttime for insomnia Family was advised to look for POA from the legal services in the community, said that they are in the process of obtaining of POA. Present on Admission - Present on Admission Any Indicators Present on Admission: No Review of Systems - Review of Systems Systems not reviewed;Unavailable: Acuity of Condition - Constitutional Constitutional: As Per HPI - EENT Eyes: As Per HPI Ears: As Per HPI Nose/Mouth/Throat: As Per HPI - Breasts Breasts: As Per HPI - Cardiovascular Cardiovascular: As Per HPI - Respiratory Respiratory: As Per HPI - Gastrointestinal Gastrointestinal: As Per HPI - Genitourinary Genitourinary: As Per HPI - Reproductive: Female Reproductive:Female: As Per HPI - Menstruation Menstruation: As Per HPI - Musculoskeletal Musculoskeletal: As Per HPI - Integumentary Integumentary: As Per HPI - Neurological Neurological: As Per HPI - Psychiatric Psychiatric: As Per HPI - Endocrine Endocrine: As Per HPI - Hematologic/Lymphatic Hematologic: As Per HPI Past Patient History - Infectious Disease Hx of Infectious Diseases: None - Tetanus Immunizations Tetanus Immunization: Unknown - Past Medical History & Family History Past Medical History?: Yes - Past Social History Smoking Status: Never Smoked - CARDIAC Hx Pacemaker: No - PULMONARY Hx Respiratory Disorders: No - NEUROLOGICAL Hx Paralysis: No - HEENT Hx HEENT Problems: No - RENAL Hx Chronic Kidney Disease: No - ENDOCRINE/METABOLIC Hx Endocrine Disorders: Yes Hx Hyperthyroidism: Yes - HEMATOLOGICAL/ONCOLOGICAL Hx Blood Transfusions: No Hx Blood Transfusion Reaction: (UNK) - INTEGUMENTARY Hx Dermatological Problems: No - MUSCULOSKELETAL/RHEUMATOLOGICAL Hx Musculoskeletal Disorders: Yes - GASTROINTESTINAL Hx Gastrointestinal Disorders: Yes (CONSTIPATION,DYSPHAGIA) Hx Gastroesophageal Reflux: Yes HX Swallowing Problems: Yes - GENITOURINARY/GYNECOLOGICAL Hx Genitourinary Disorders: Yes (C/S X 1) - PSYCHIATRIC Hx Emotional Abuse: Yes Hx Physical Abuse: No Hx Substance Use: No - SURGICAL HISTORY Hx Surgeries: Yes (RIGHT BREAST MASTECTOMY,SKIN GRAFT TAKEN FR THIGH FOR R BREAST.C/S X 1) - ANESTHESIA Hx Anesthesia Reactions: No Hx Malignant Hyperthermia: No Meds Allergies/Adverse Reactions: Allergies Allergy/AdvReac Type Severity Reaction Status Date / Time vancomycin AdvReac Intermediate ITCHING Verified 11/07/18 17:55 Physical Exam - Constitutional Appears: Well, Non-toxic Results - Vital Signs Recent Vital Signs: Last Vital Signs Temp 98.1 F 11/27/18 08:55 Pulse 81 11/27/18 08:55 Resp 18 11/27/18 08:55 BP 97/67 L 11/27/18 08:55 Pulse Ox 100 11/27/18 08:55 - Labs Labs: Laboratory Results - last 24 hr 11/27/18 08:30 Urine HCG, Qual Negative - EKG Data EKG Interpreted by: Other (anesthesiologist/mine engineering superintendent/PMD) - EKG Data When Compared to Previous EKG: No Significant Change Assessment & Plan - Assessment and Plan (Free Text) Assessment: schizoaffective disorder, treatment resistant Plan: ECT treatment 11/27/17, used the same parameters as last ECT treatment because pt had adequate seizures. 0.5ms BL, frequency of 90Hz 8sec, charge 576mC, energy 101.4J at 220 ohms, impedance 630 pt had about 19sec of motor seizures which was considered to be %likely adequate therapeutic seizures by MECTA analysis. pt tolerated treatment well. next treatment will be 12/11/1918 with the plan to give ECT tx every other week for one month, next tx is 12/11/18, after that 12/25/18 after that once a month tx. Patient will continue Risperdal 2 mg 3 times a day for psychosis Cogentin 0.5 mg 3 times a day for possible EPS Ambien 5 mg at the nighttime for insomnia Decision To Admit - Pt Status Changed To: Hospital Disposition Of: Extended Recovery/Post Procedure
== END 2018-11-27 12:50 | disposition home or self-care (01) ==
LOC: SDS 08:04
PROVIDERS: ATTEND Psychiatry & Neurology Psychiatry
DX: F25.9 Schizoaffective disorder, unspecified (principal); Z88.1 Allergy status to other antibiotic agents; Z90.11 Acquired absence of right breast and nipple
CPT/HCPCS: 84703; 90870; J0330; J2704; J7120

== ENCOUNTER 2018-12-11 08:59 | Day surgery (SDC) | payer MEDICAID ==
[2018-12-11] MEDS ORDERED: Midazolam 2 MG/2 ML VIAL ONE (11:24)
[2018-12-11] MEDS ORDERED: Sodium Chloride 0.9% 1,000 ML IV SCH (12:00)
--- NOTE | 2018-12-11 12:25 | CP.PCM.HP ---
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 pt improved significantly on ECT treatment, pt had 8ECT treatments while being inpatient psych. pt was discharged and came for outpatient ECT procedure. Presently pt is doing "thank you doctor, I am okay, but I have a lot of thoughts..." pt denied hearing any voices, pt denied thoughts of harming self or others. Pt was accompanied by her daughter Donna, as per Donna pt is doing "good", no abnormal behavior. pt was seen in OR, pt singed consent for treatment, pt had a capacity to do so. discussed with pt's daughter Donna who is next to the pt, pt gave permission to discuss tx with her. Donna and pt were advised in case of worsening of "a lot of thoughts" or psychosis to come to the hospital. BL ECT treatment #1 10/17/18, tolerated that well BL ECT treatment #2 10/20/18 tolerated it well BL ECT treatment #3 10/21/18 tolerated it well BL ECT treatment #4 10/22/18, tolerated well BL ECT treatment #5 10/23/18, tolerated well BL ECT treatment #6 10/27/18, tolerated well BL ECT treatment #7 10/29/18, tolerated well BL ECT treatment #8 10/31/18 tolerated well BL ECT treatment #9 11/06/17 tolerated well pt missed 11/13/18 ECT because of the cardiac cath, was negative discussed with and (PMD and creative art therapist) who both cleared pt for ECT procedure, please see notes for more detailed information. BL ECT treatment #10 11/27/18 tolerated it well BL ECT treatment #11 12/11/18, used the same parameters as last ECT treatment because pt had adequate seizures. 0.5ms, frequency of 90Hz 8sec, charge 576mC, energy 101.4J at 220 ohms, impedance 560 pt had about 23sec of motor seizures which was considered to be 78%likely adequate therapeutic seizures by MECTA analysis. anesthesiologist used ketamine 40mg, succinylcholine 80mg (pt's muscles were not fully paralized, probably we would need 100mg of succinylcholine). pt tolerated treatment well, pt woke up, no complications next treatment 12/25/18, 01/08/19 [id number] for the month, after that monthly. Patient will continue Risperdal 2 mg 3 times a day for psychosis Cogentin 0.5 mg 3 times a day for possible EPS Ambien 5 mg at the nighttime for insomnia Family was advised to look for POA from the legal services in the community. Present on Admission - Present on Admission Any Indicators Present on Admission: No Review of Systems - Review of Systems Systems not reviewed;Unavailable: Acuity of Condition - Constitutional Constitutional: As Per HPI - EENT Eyes: As Per HPI Ears: As Per HPI Nose/Mouth/Throat: As Per HPI - Breasts Breasts: As Per HPI - Cardiovascular Cardiovascular: As Per HPI - Respiratory Respiratory: As Per HPI - Gastrointestinal Gastrointestinal: As Per HPI - Genitourinary Genitourinary: As Per HPI - Reproductive: Female Reproductive:Female: As Per HPI - Menstruation Menstruation: As Per HPI - Musculoskeletal Musculoskeletal: As Per HPI - Integumentary Integumentary: As Per HPI - Neurological Neurological: As Per HPI - Psychiatric Psychiatric: As Per HPI - Endocrine Endocrine: As Per HPI - Hematologic/Lymphatic Hematologic: As Per HPI Past Patient History - Infectious Disease Hx of Infectious Diseases: None - Tetanus Immunizations Tetanus Immunization: Unknown - Past Medical History & Family History Past Medical History?: Yes - Past Social History Smoking Status: Never Smoked - CARDIAC Hx Pacemaker: No - PULMONARY Hx Respiratory Disorders: No - NEUROLOGICAL Hx Paralysis: No - HEENT Hx HEENT Problems: No - RENAL Hx Chronic Kidney Disease: No - ENDOCRINE/METABOLIC Hx Endocrine Disorders: Yes Hx Hyperthyroidism: Yes - HEMATOLOGICAL/ONCOLOGICAL Hx Blood Transfusions: No - INTEGUMENTARY Hx Dermatological Problems: No - MUSCULOSKELETAL/RHEUMATOLOGICAL Hx Musculoskeletal Disorders: Yes - GASTROINTESTINAL Hx Gastrointestinal Disorders: Yes (CONSTIPATION,DYSPHAGIA) Hx Gastroesophageal Reflux: Yes HX Swallowing Problems: Yes - GENITOURINARY/GYNECOLOGICAL Hx Genitourinary Disorders: Yes (C/S X 1) - PSYCHIATRIC Hx Emotional Abuse: Yes Hx Physical Abuse: No Hx Substance Use: No - SURGICAL HISTORY Hx Surgeries: Yes (RIGHT BREAST MASTECTOMY,SKIN GRAFT TAKEN FR THIGH FOR R BREAST.C/S X 1) - ANESTHESIA Hx Anesthesia Reactions: No Hx Malignant Hyperthermia: No Meds Allergies/Adverse Reactions: Allergies Allergy/AdvReac Type Severity Reaction Status Date / Time vancomycin AdvReac Intermediate ITCHING Verified 11/07/18 17:55 Results - Vital Signs Recent Vital Signs: Last Vital Signs Temp 98.8 F 12/11/18 09:44 Pulse 86 12/11/18 09:44 Resp 20 12/11/18 09:44 BP 96/59 L 12/11/18 09:44 Pulse Ox 100 12/11/18 09:44 - Labs Labs: Laboratory Results - last 24 hr 12/11/18 09:09 Urine HCG, Qual Negative - EKG Data EKG Interpreted by: Myself EKG shows normal: Sinus rhythm Rate: Normal Assessment & Plan (1) Schizoaffective disorder Status: Chronic Priority: High - Assessment and Plan (Free Text) Plan: next treatment 12/25/18, 01/08/19 [id number] for the month, after that monthly. family advised to come to the hospital or call 911 in case of worsening of the symptoms. Patient will continue Risperdal 2 mg 3 times a day for psychosis Cogentin 0.5 mg 3 times a day for possible EPS Ambien 5 mg at the nighttime for insomnia pt has f/u appt with . Decision To Admit - Pt Status Changed To: Hospital Disposition Of: Extended Recovery/Post Procedure
[2018-12-11 12:57] VITALS: BP 92/54; PULSE 81; RESP 20; TEMP 97.8; O2SAT 96
== END 2018-12-11 15:00 | disposition home or self-care (01) ==
LOC: SDS 08:59
PROVIDERS: ATTEND Psychiatry & Neurology Psychiatry
DX: F25.9 Schizoaffective disorder, unspecified (principal); Z88.1 Allergy status to other antibiotic agents
CPT/HCPCS: 84703; 90870; J2250; J7030; J7120

== ENCOUNTER 2018-12-24 08:36 | Day surgery (SDC) | payer MEDICAID ==
[2018-12-24] MEDS ORDERED: Propofol 10 mg/ml Inj (20 ML) ONE (11:18)
[2018-12-24] MEDS ORDERED: Succinylcholine 200 mg/10 ml Inj IV ONE (11:19)
[2018-12-24] MEDS ORDERED: HYDROmorphone 0.5 mg/0.5 ml ISec IVP PRN ×2 (11:20→11:23)
[2018-12-24] MEDS ORDERED: Ketamine 10 mg/ml Inj (20 ml) ONE (11:21)
[2018-12-24] MEDS ORDERED: Sodium Chloride 0.9% 1,000 ML IV SCH (11:30)
[2018-12-24 12:10] VITALS: O2SAT 99
[2018-12-24 12:20] VITALS: BP 97/55; PULSE 79; RESP 18; TEMP 97.6
--- NOTE | 2018-12-24 15:32 | CP.PCM.HP ---
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 pt improved significantly on ECT treatment, pt had 8ECT treatments while being inpatient psych. pt was discharged and came for outpatient ECT procedure, currently ud[facility] care of at [facility]. pt came for ECT treatment, pt's contacted this wrier 12/23/18, saying that they cannot come for thx on 12/25/18, rescheduled for today 12/24/18. pt came accompanied by her Nilo, as per pt she is doing well, pt pr esented very well, it seems she gain some weight, looked healthy. pt singed consent for treatment, pt had a capacity to do so. discussed with pt's who is next to the pt, pt gave permission to talk to him, as per pt has periods of forgetfulness, this tech writer will use 0.3PW for ECT today, which shows less memory affect. 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 this tech writer educated pt and to look for supervisor finishing department only. BL ECT treatment #1 10/17/18, tolerated that well BL ECT treatment #2 10/20/18 tolerated it well BL ECT treatment #3 10/21/18 tolerated it well BL ECT treatment #4 10/22/18, tolerated well BL ECT treatment #5 10/23/18, tolerated well BL ECT treatment #6 10/27/18, tolerated well BL ECT treatment #7 10/29/18, tolerated well BL ECT treatment #8 10/31/18 tolerated well BL ECT treatment #9 11/06/17 tolerated well pt missed 11/13/18 ECT because of the cardiac cath, was negative discussed with and (PMD and sole edge inker machine) who both cleared pt for ECT procedure, please see notes for more detailed information. BL ECT treatment #10 11/27/18 tolerated it well BL ECT treatment #11 12/11/18, tolerated well, pt woke up, no complications BL ECT treatment #12 12/25/18 used 0.37msec, frequency 120Hz, duration 8.0 sec and current 800mA. pt had 22sec of motor seizures, which was considered to be 93%likely adequate therapeutic seizures by MECTA analysis. anesthesiologist used ketamine 40mg, succinylcholine 80mg next ECT treatment 01/08/19 and 01/22/19 after that monthly. Patient will continue Risperdal 2 mg 3 times a day for psychosis Cogentin 0.5 mg 3 times a day for possible EPS Ambien 5 mg at the nighttime for insomnia as per pt was started on paxil Family was advised to look for POA from the legal services in the community.' Present on Admission - Present on Admission Any Indicators Present on Admission: No Review of Systems - Review of Systems Systems not reviewed;Unavailable: Acuity of Condition - Constitutional Constitutional: As Per HPI Past Patient History - Infectious Disease Hx of Infectious Diseases: None - Tetanus Immunizations Tetanus Immunization: Unknown - Past Medical History & Family History Past Medical History?: Yes - Past Social History Smoking Status: Never Smoked - CARDIAC Hx Pacemaker: No - PULMONARY Hx Respiratory Disorders: No - NEUROLOGICAL Hx Paralysis: No - HEENT Hx HEENT Problems: No - RENAL Hx Chronic Kidney Disease: No - ENDOCRINE/METABOLIC Hx Endocrine Disorders: Yes Hx Hyperthyroidism: Yes - HEMATOLOGICAL/ONCOLOGICAL Hx Blood Transfusions: No - INTEGUMENTARY Hx Dermatological Problems: No - MUSCULOSKELETAL/RHEUMATOLOGICAL Hx Musculoskeletal Disorders: Yes - GASTROINTESTINAL Hx Gastrointestinal Disorders: Yes (CONSTIPATION,DYSPHAGIA) Hx Gastroesophageal Reflux: Yes HX Swallowing Problems: Yes - GENITOURINARY/GYNECOLOGICAL Hx Genitourinary Disorders: Yes (C/S X 1) - PSYCHIATRIC Hx Emotional Abuse: Yes Hx Physical Abuse: No Hx Substance Use: No - SURGICAL HISTORY Hx Surgeries: Yes (RIGHT BREAST MASTECTOMY,SKIN GRAFT TAKEN FR THIGH FOR R BREAST.C/S X 1) - ANESTHESIA Hx Anesthesia Reactions: No Hx Malignant Hyperthermia: No Meds Allergies/Adverse Reactions: Allergies Allergy/AdvReac Type Severity Reaction Status Date / Time vancomycin AdvReac Intermediate ITCHING Verified 11/07/18 17:55 Physical Exam - Constitutional Appears: Well, Non-toxic Results - Vital Signs Recent Vital Signs: Last Vital Signs Temp 97.6 F 12/24/18 09:15 Pulse 79 12/24/18 09:15 Resp 18 02/20/19 09:15 BP 97/55 L 12/24/18 09:15 Pulse Ox 100 12/24/18 09:15 - Labs Labs: Laboratory Results - last 24 hr 12/24/18 10:06 Urine HCG, Qual Negative - EKG Data EKG Interpreted by: Other (anesthesiologist) Assessment & Plan (1) Schizoaffective disorder Status: Chronic Priority: High - Assessment and Plan (Free Text) Plan: next ECT treatment 01/08/19 and 01/22/19 after that monthly. Patient will continue Risperdal 2 mg 3 times a day for psychosis Cogentin 0.5 mg 3 times a day for possible EPS Ambien 5 mg at the nighttime for insomnia as per pt was started on paxil Family was advised to look for POA from the legal services in the community.' Decision To Admit - Pt Status Changed To: Hospital Disposition Of: Extended Recovery/Post Procedure
== END 2018-12-24 13:11 | disposition home or self-care (01) ==
LOC: SDS 08:36
PROVIDERS: ATTEND Psychiatry & Neurology Psychiatry
DX: F25.9 Schizoaffective disorder, unspecified (principal)
CPT/HCPCS: 84703; 90870; J0330; J1170; J1885; J2704; J7030; J7120

== ENCOUNTER 2019-01-27 12:08 | Outpatient (CLI) | payer MEDICAID | END 2019-01-27 12:09 | disposition home or self-care (01) | LOC: RAD 12:08 ==

== ENCOUNTER 2019-02-06 09:50 | Outpatient (CLI) | payer MEDICAID | END 2019-02-06 09:51 | disposition home or self-care (01) | LOC: RAD 09:50 ==

== ENCOUNTER 2019-02-10 18:31 | Emergency (ER) | payer MEDICAID ==
[2019-02-10 18:51] VITALS: BMI 25.1
[2019-02-10] MEDS ORDERED: Sodium Chloride 0.9% 1,000 ML IV STA (18:55)
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
[2019-02-10] MEDS ORDERED: Sodium Chloride 0.9% 500 ML IV STA (19:11)
[2019-02-10 19:40] LABS: ALB/GLOB RATIO 1.1 (1.1-1.8); ALBUMIN 3.8 g/dL (3.0-4.8); ALT/SGPT 32 U/L (7-56); AST/SGOT 28 U/L (14-36); BLOOD UREA NITROGEN 19 mg/dL (7-21); CALCIUM 9.1 mg/dL (8.4-10.5); GFR NON-AFRICAN AMERICAN > 60; LIPASE 121 U/L (23-300)
[2019-02-10 19:57] LABS: BASO # 0.01 K/mm3 (0.0-2.0); BASO % 0.2 % (0.0-3.0); EOS # 0.1 (0.0-0.7); EOS % 1.5 % (1.5-5.0); HEMOGLOBIN 9.6 g/dL (12.0-16.0); LYMPH # 2.1 (1.2-3.4); LYMPH % 44.6 % (22.0-35.0); MEAN CELL VOLUME 83.3 fl (80.0-105.0); MEAN CORPUSCULAR HEMOGLOBIN 25.9 pg (25.0-35.0); MEAN CORPUSCULAR HGB CONC 31.1 g/dl (31.0-37.0); MEAN PLATELET VOLUME 9.9 fl (7.0-11.0); MONO # 0.4 (0.1-0.6); MONO % 8.5 % (1.0-6.0); RBC 3.71 10^6/uL (3.5-6.1); RED CELL DISTRIBUTION WIDTH 17.7 % (11.5-14.5); WHITE BLOOD COUNT 4.7 10^3/uL (4.5-11.0)
[2019-02-10 20:02] LABS: INR 1.05; PARTIAL THROMBOPLASTIN TIME 30.9 Seconds (26.9-38.3); PROTHROMBIN TIME 11.7 SECONDS (9.4-12.5)
[2019-02-10 22:04] VITALS: BP 105/63; PULSE 68; RESP 18; TEMP 98.1; O2SAT 99
[2019-02-10 23:00] LABS: URINE BILIRUBIN NEGATIVE (NEGATIVE); URINE BLOOD MODERATE (NEGATIVE); URINE GLUCOSE (UA) NEGATIVE (NEGATIVE); URINE LEUKOCYTE ESTERASE NEGATIVE Leu/uL (NEGATIVE); URINE PROTEIN NEGATIVE mg/dL (<30 mg/dL); URINE UROBILINOGEN 0.2 E.U./dL (<1 E.U./dL)
[2019-02-10 23:02] LABS: URINE APPEARANCE CLEAR (CLEAR); URINE COLOR YELLOW (YELLOW)
[2019-02-10 23:03] LABS: HCG,QUALITATIVE URINE NEGATIVE (NEGATIVE); URINE RBC 20 - 25 /hpf (0-2)
--- NOTE | 2019-02-11 09:14 | CT ---
Date of service: 02/10/2019 PROCEDURE: CT Abdomen and Pelvis with contrast HISTORY: rule out appendicitis COMPARISON: 11/08/2018 abdominal ultrasound. TECHNIQUE: Intravenous contrast dose: 100 cc Omnipaque 350. Radiation dose: Total exam DLP = 435.81. mGy-cm. This CT exam was performed using one or more of the following dose reduction techniques: Automated exposure control, adjustment of the mA and/or kV according to patient size, and/or use of iterative reconstruction technique. FINDINGS: LOWER THORAX: Unremarkable. LIVER: Unremarkable. No gross lesion or ductal dilatation. GALLBLADDER AND BILE DUCTS: Unremarkable. PANCREAS: Unremarkable. No gross lesion or ductal dilatation. SPLEEN: Unremarkable. ADRENALS: Unremarkable. No mass. KIDNEYS AND URETERS: Unremarkable. No hydronephrosis. No solid mass. VASCULATURE: Unremarkable. No aortic aneurysm. No atherosclerotic calcification or mural plaque present. BOWEL: Constipation without fecal impaction or obstruction. Distended stomach filled with fluid and debris. APPENDIX: No abnormalities to suggest acute appendicitis. No right lower quadrant inflammatory processes identified. PERITONEUM: Unremarkable. No free fluid. No free air. LYMPH NODES: Unremarkable. No enlarged lymph nodes. BLADDER: Unremarkable. REPRODUCTIVE: Unremarkable. BONES: No acute fracture. OTHER FINDINGS: None. IMPRESSION: No significant or acute findings to account for/ related to the clinical presentation. Additional benign and/or incidental findings described above. Concordant results (preliminary interpretation) provided by [employer]. Procedure Completed: 20:39. Preliminary Report: Interpreted and electronically signed: 21:39. Final Interpretation: 09:10. February 11, 2019.
--- NOTE | 2019-02-11 10:18 | RAD ---
Date of service: 02/10/2019 HISTORY: Abdominal pain COMPARISON: February 06, 2019. FINDINGS: LUNGS: No active pulmonary disease. PLEURA: No significant pleural effusion identified, no pneumothorax apparent. CARDIOVASCULAR: No atherosclerotic calcification present Normal. OSSEOUS STRUCTURES: No significant abnormalities. VISUALIZED UPPER ABDOMEN: Normal. OTHER FINDINGS: None. IMPRESSION: No active disease. No significant interval change compared to the prior examination(s).
== END 2019-02-10 23:39 | disposition home or self-care (01) ==
LOC: ED 18:31
DX: K52.9 Noninfective gastroenteritis and colitis, unspecified (principal); I10 Essential (primary) hypertension; Z85.3 Personal history of malignant neoplasm of breast; F25.9 Schizoaffective disorder, unspecified
CPT/HCPCS: 71045; 74177; 80053; 81001; 81025; 83690; 83735; 84703; 85025; 85610; 85730; 96361; 96374; 99283; J1885; J7040

== ENCOUNTER 2019-02-19 10:48 | Outpatient (CLI) | payer MEDICAID | END 2019-02-19 10:49 | disposition home or self-care (01) | LOC: RAD 10:48 ==

== ENCOUNTER 2019-03-02 10:38 | Outpatient (CLI) | payer MEDICAID | END 2019-03-02 10:39 | disposition home or self-care (01) | LOC: RAD 10:38 ==

== ENCOUNTER 2019-03-30 08:40 | Inpatient (IN) | payer MEDICAID ==
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
[2019-03-30] MEDS ORDERED: Sodium Chloride 0.9% 1,000 ML IV STA ×2 (09:21→09:27)
[2019-03-30] MEDS ORDERED: Cefepime 1gm in NS 100ml 1 GM/100 ML BAG IVPB SCH (09:30)
[2019-03-30 09:32] LABS: EOS % 0.1 % (1.5-5.0); HEMOGLOBIN 11.1 g/dL (12.0-16.0); LYMPH # 0.5 (1.2-3.4); LYMPH % 3.7 % (22.0-35.0); MEAN CELL VOLUME 80.3 fl (80.0-105.0); MEAN CORPUSCULAR HEMOGLOBIN 26.3 pg (25.0-35.0); MEAN CORPUSCULAR HGB CONC 32.7 g/dl (31.0-37.0); MEAN PLATELET VOLUME 8.9 fl (7.0-11.0); MONO # 0.8 (0.1-0.6); MONO % 5.3 % (1.0-6.0); PLATELET COUNT 359 10^3/uL (120.0-450.0); RBC 4.22 10^6/uL (3.5-6.1); RED CELL DISTRIBUTION WIDTH 18.2 % (11.5-14.5); WHITE BLOOD COUNT 14.2 10^3/uL (4.5-11.0)
[2019-03-30 09:36] LABS: VENOUS BLOOD GAS BASE EXCESS 5.4 mmol/L (0.0-2.0); VENOUS BLOOD GAS PO2 23 mm/Hg (30-55); VENOUS BLOOD PH 7.46 (7.32-7.43)
[2019-03-30 09:41] LABS: INR 1.23; PROTHROMBIN TIME 13.9 SECONDS (9.4-12.5)
[2019-03-30 09:42] LABS: ALBUMIN 3.9 g/dL (3.0-4.8); ALT/SGPT 42 U/L (7-56); AST/SGOT 43 U/L (14-36); BLOOD UREA NITROGEN 16 mg/dL (7-21); CALCIUM 9.2 mg/dL (8.4-10.5); GFR NON-AFRICAN AMERICAN 59; LIPASE 35 U/L (23-300)
[2019-03-30 10:11] LABS: BAND 1 % (0-2); EOSINOPHIL 1 % (0.0-3.0); LYMPHOCYTE 7 % (22.0-35.0); MONOCYTE 2 % (1.0-6.0); NEUTROPHIL 89 % (50.0-70.0)
[2019-03-30] MEDS ORDERED: Iodixanol 320 MG/ML 100 ML BOTTLE IV ONE (10:51)
[2019-03-30 11:18] LABS: PH,URINE 8.5 (4.7-8.0); URINE BILIRUBIN NEGATIVE (NEGATIVE); URINE BLOOD MODERATE (NEGATIVE); URINE GLUCOSE (UA) NEGATIVE (NEGATIVE); URINE LEUKOCYTE ESTERASE NEGATIVE Leu/uL (NEGATIVE); URINE PROTEIN TRACE mg/dL (<30 mg/dL); URINE UROBILINOGEN 0.2 E.U./dL (<1 E.U./dL)
[2019-03-30 11:22] LABS: URINE APPEARANCE SL CLOUDY (CLEAR); URINE COLOR YELLOW (YELLOW)
[2019-03-30 11:39] LABS: URINE BACTERIA MANY /hpf
[2019-03-30 11:42] LABS: HCG,QUALITATIVE URINE NEGATIVE (NEGATIVE)
--- NOTE | 2019-03-30 12:07 | RAD ---
Date of service: 03/30/2019 HISTORY: fever, cough COMPARISON: Chest radiograph dated 02/10/2019. TECHNIQUE: 1 view obtained. FINDINGS: LUNGS: Large left lower lobe consolidation. PLEURA: No significant pleural effusion identified, no pneumothorax apparent. CARDIOVASCULAR: No aortic atherosclerotic calcification present. Normal cardiac size. No pulmonary vascular congestion. OSSEOUS STRUCTURES: No significant abnormalities. VISUALIZED UPPER ABDOMEN: Normal. OTHER FINDINGS: None. IMPRESSION: Large left lower lobe consolidation.
--- NOTE | 2019-03-30 12:07 | CT ---
Date of service: 03/30/2019 PROCEDURE: CT Abdomen and Pelvis with contrast HISTORY: left-sided pain COMPARISON: Correlations made to CT scan of the chest dated 03/02/2019 TECHNIQUE: Contrast dose: 100 mL Visipaque 320 Radiation dose: Total exam DLP = 399.45 mGy-cm. This CT exam was performed using one or more of the following dose reduction techniques: Automated exposure control, adjustment of the mA and/or kV according to patient size, and/or use of iterative reconstruction technique. FINDINGS: LOWER THORAX: Left lower lobe consolidation. Trace left pleural effusion. LIVER: Unremarkable. No gross lesion or ductal dilatation. GALLBLADDER AND BILE DUCTS: Unremarkable. PANCREAS: Unremarkable. No gross lesion or ductal dilatation. SPLEEN: Unremarkable. ADRENALS: Unremarkable. No mass. KIDNEYS AND URETERS: Unremarkable. No hydronephrosis. No solid mass. VASCULATURE: Unremarkable. No aortic aneurysm. No aortic atherosclerotic calcification or mural plaque present. BOWEL: Unremarkable. No obstruction. No gross mural thickening. APPENDIX: Normal appendix. PERITONEUM: Unremarkable. No free fluid. No free air. LYMPH NODES: Unremarkable. No enlarged lymph nodes. BLADDER: Unremarkable. REPRODUCTIVE: Unremarkable. BONES: No acute fracture. OTHER FINDINGS: None. IMPRESSION: Large left lower lobe consolidation.
[2019-03-30] MEDS ORDERED: levoFLOXacin 750 mg in D5W 750 MG/150 ML BAG IVPB STA (12:14)
[2019-03-30] MEDS: Sodium Chloride 0.9% 1,000 ML IV SCH ×2 (15:30→22:45)
[2019-03-30 15:42] VITALS: BMI 29.2
[2019-03-30] MEDS ORDERED: Pneumococcal 23-Valent Vaccine IM ONE (15:42)
[2019-03-30] MEDS: Benzocaine/Menthol (Cepacol) Lozenge MT PRN (18:02)
[2019-03-30] MEDS ORDERED: Ergocalciferol 50,000 Intl Units Cap PO SCH (18:15)
[2019-03-30] MEDS: Cefepime 1gm in NS 100ml 1 GM/100 ML BAG IVPB SCH (22:15)
[2019-03-31] MEDS: Sodium Chloride 0.9% 1,000 ML IV SCH ×3 (03:00→22:50)
[2019-03-31] MEDS: Cefepime 1gm in NS 100ml 1 GM/100 ML BAG IVPB SCH ×3 (06:50→22:50)
[2019-03-31] MEDS: Pantoprazole 40 mg EC Tab PO SCH (06:50)
[2019-03-31 07:26] LABS: MEAN CELL VOLUME 79.9 fl (80.0-105.0); MEAN CORPUSCULAR HEMOGLOBIN 26.1 pg (25.0-35.0); MEAN CORPUSCULAR HGB CONC 32.6 g/dl (31.0-37.0); MEAN PLATELET VOLUME 9.2 fl (7.0-11.0); RBC 3.49 10^6/uL (3.5-6.1); RED CELL DISTRIBUTION WIDTH 18.6 % (11.5-14.5); WHITE BLOOD COUNT 17.5 10^3/uL (4.5-11.0)
[2019-03-31 07:29] LABS: HEMOGLOBIN 9.2 g/dL (12.0-16.0)
[2019-03-31 07:40] LABS: BLOOD UREA NITROGEN 9 mg/dL (7-21); CALCIUM 7.7 mg/dL (8.4-10.5); GFR NON-AFRICAN AMERICAN > 60
[2019-03-31] MEDS ORDERED: VITAMIN A 8000 UNIT PO SCH (10:00)
[2019-03-31] MEDS: Multivitamin Therapeutic Tab PO SCH (10:04)
[2019-03-31] MEDS: Iron Complex Polysacch 150mg Cap PO SCH (10:05)
[2019-03-31] MEDS: Levothyroxine 100 MCG TAB PO SCH (10:05)
[2019-03-31] MEDS: Enoxaparin 40 mg Syringe SC SCH (10:05)
[2019-03-31] MEDS: VITAMIN A 8000 UNIT PO SCH (10:06)
[2019-03-31] MEDS ORDERED: Levalbuterol 1.25 MG/3 ML Inhal Soln UD IH PRN (10:29)
--- NOTE | 2019-03-31 11:12 | CARD ---
APPROVED REPORT Date of service: 03/30/2019 EKG Measurement Heart [id number] <Conclusion> Normal sinus rhythm Cannot rule out small or absent R waves V1-V3, may be due to lead placement or possible septal infarct age undetermined. Abnormal ECG
--- NOTE | 2019-03-31 13:11 | CON ---
DATE: 03/31/2019 PULMONARY CONSULTATION NOTE REFERRING PHYSICIAN: Igor Ca MD REASON FOR CONSULTATION: Pneumonia, cough and shortness of breath. HISTORY OF PRESENT ILLNESS: This is a 49-year-old female known to us from past admission and as outpatient with past medical history significant for rheumatoid arthritis, breast cancer, status post mastectomy more than 20 years ago, at that time the patient was treated with radiation and chemotherapy, history of schizophrenia, gastritis, thyroid disease and severe depression. The patient presented to the emergency room complaining of fever and dizziness. is at the patient at bedside hoping to translate, this patient speaks Swedish and Bengali, but sometime has difficulty verbalizing. The patient reported that she was having some intermittent dizziness, but it became very severe yesterday morning and was accompanied with fever and chills as well as left sided pain. The patient also reports, at that times, she was having a cough, states that she has these symptoms on and off for about 2 weeks, but symptoms seems to worse yesterday so, she came to the emergency room. Today, the patient seen lying in bed, febrile this morning. Reports productive cough, appears to have shortness of breath. Denies any rhinitis and nasal congestion. PAST MEDICAL HISTORY: As per history of present illness. ALLERGIES: TO VANCOMYCIN. FAMILY HISTORY: No significant cardiopulmonary disease reported. SOCIAL HISTORY: No history of smoking. No EtOH abuse. No illicit drug use. REVIEW OF SYSTEMS: No headache, rhinitis, chest pain, abdominal pain, nausea, vomiting, diarrhea, leg pain, or leg swelling reported. The patient reports having productive cough and some shortness of breath at times. MEDICATIONS: Reviewed. Tylenol 650 every 6 hours p.r.n. for fever greater than 100.4, aspirin 81 mg daily, Cepacol throat lozenges every 2 hours p.r.n., Cogentin 0.5 mg every 8 hours, calcium carbonate 650 mg daily, cefepime 1 g every 8 hours, daptomycin 440 mg every 24 hours, Colace 100 mg daily, doxycycline 100 mg every 12 hours, Lovenox 40 mg subcutaneous daily, Ergocalciferol 50,000 units weakly, Prozac 30 mg daily, Folic acid 1 mg daily, Xopenex 1.25 mg inhalation every 6 hours p.r.n., Synthroid 100 mcg daily, multivitamin 1 tab daily, Protonix 40 mg daily, Ferrex 150 mg daily, potassium chloride 10 mEq at breakfast, Risperdal 2 mg every 8 hours, sodium chloride at 1000 mL at 125 mL per hour every 8 hours, spironolactone 50 mg daily and Ambien 5 mg at bedtime p.r.n. PHYSICAL EXAMINATION: GENERAL: No acute distress. VITAL SIGNS: Blood pressure 105/69, pulse 103, temperature 100.5 and oxygen saturation 92% on room air. HEENT: Moist mucous membranes. Crowded airway. NECK: Supple. No JVD. RESPIRATORY: Decreased breath sounds bilaterally. CARDIOVASCULAR: S1 and S2. ABDOMEN: Soft and nontender. No distension. No organomegaly. EXTREMITIES: No bilateral lower extremity edema. Does have some lymphedema on right upper extremity. NEUROLOGIC: Awake, alert and verbal. Follows simple commands. LABORATORY DATA: Reviewed. WBC 17.5, RBC 3.49, hemoglobin 9.2, hematocrit 27.9 and platelets 320. PT 13.9, INR 1.23, APTT 27, PO2 23, venous blood gas pH 7.46, venous blood gas PCO2 42, venous blood gas HCO3 29.9 on FiO2 21. Sodium 137, potassium 3.1, chloride 108, carbon dioxide 21, anion gap 12, BUN 9, creatinine 0.8, GFR greater than 60, random glucose 119, calcium 7.7 and procalcitonin 0.47. Urinalysis, urine protein trace urine blood moderate, urine RBC 10-15, urine WBC 5-10, urine epithelial cell 6-8. Urine legionella negative. Urine culture final less than 10,000 multiple species were seen. One out of two blood cultures shows Gram-positive cocci. Abdomen and pelvis CT large left lower lobe consolidation, trace left pleural effusion. Chest x-ray shows large left lower lobe consolidation. EKG normal sinus rhythm. IMPRESSION AND PLAN: Sepsis and pneumonia. The patient with history of deep venous thrombosis in the right lower extremity, which has since resolved based on venous duplex done as outpatient in our office. The patient with history of radiation which may contribute to chronic lung disease. The patient does have severe chronic lung disease with severely decreased FEV1 which is seen on outpatient PFT, schizoaffective disorder and depression. We will place the patient on inhaled bronchodilators, Brovana and Pulmicort. Continue gastric prophylaxis. Continue deep venous thrombosis prophylaxis. Echocardiogram from 10/2018 reviewed which showed ejection fraction 55, right ventricular systolic pressure 25. The patient with one out of two blood cultures positive. We do suspect sleep apnea in this patient. The patient was supposed to have sleep study as outpatient, but has not scheduled sleep study yet. Sleep apnea precaution. Head of bed elevated at 45 degrees. The patient was seen and examined with Dr. Alves. Discussed assessment and plan as described above. The patient was seen and examined by Ana Steven, nurse practitioner. Discussed assessment and plan as described above. Thank you for this consult and we will follow with you. Ana Steven APN Jasmine Alves MD MARIAN
[2019-03-31] MEDS: Potassium Chloride 10 mEq ER Tab PO SCH (13:44)
--- NOTE | 2019-03-31 15:26 | CP.PCM.CON ---
<Radames Ojeda - Last Filed: 03/31/19 15:28> History of Present Illness - History of Present Illness History of Present Illness: PGY6 GI Fellow Consult Note Patient is a 49yo female with PMHx significant for bipolar disorder, schizoaffective disorder s/p ECT, HTN, right breast cancer s/p chemoXRT and right mastectomy, rheumatoid arthritis on adalimumab/methotrexate, and hypothyroidism who presented to the ED with fever and dizziness. Symptoms have been ongoing for the week leading up to admission and associated with progressive fatigue and myalgias. She also admitted to left flank discomfort which prompted CT scan in the ED showing a left lower lung consolidation c/w pneumonia. She has since been started on Daptomycin, Maxipime and Doxycycline by the ID team. Our service has been consulted for concern for dysphagia. At the time of interview, patient denies any difficulty eating and states she has been tolerating meals, including clear liquids today. No nausea, vomiting, weight l oss, abdominal pain presently. 12 system ROS performed and negative except where stated PMHx: See HPI PSHx: R mastectomy, breast reconstructive surgery, abdominoplasty, x2 FHx: No pertinent family history per patient\ Social: Denies tobacco, EtOH or illicit drug use Endo: EGD - 09/2018 - Torturous esophagus, gastritis Colon - 07/2016 - Ascending colon polyp, internal hemorrhoids Past Patient History - Infectious Disease Hx of Infectious Diseases: None - Tetanus Immunizations Tetanus Immunization: Unknown - Past Medical History & Family History Past Medical History?: Yes - Past Social History Smoking Status: Never Smoked - CARDIAC Hx Cardiac Disorders: Yes (CAD) Hx Pacemaker: No Hx Peripheral Edema: Yes - PULMONARY Hx Respiratory Disorders: Yes (PLEURAL EFFUSION) Hx Pneumonia: Yes - NEUROLOGICAL Hx Neurological Disorder: No - HEENT Hx HEENT Problems: No - RENAL Hx Chronic Kidney Disease: No - ENDOCRINE/METABOLIC Hx Endocrine Disorders: Yes Hx Hyperthyroidism: Yes (GOITER) - HEMATOLOGICAL/ONCOLOGICAL Hx Blood Disorders: Yes Hx Cancer: Yes (breast-R BREAT MASTECTOMY-RECONSTRUCTION.) Hx Chemotherapy: Yes (WITH RADIATION.) - INTEGUMENTARY Hx Dermatological Problems: Yes Other/Comment: RIGHT ARM LYMPHEDEMA. RIGHT BREAST H/O MASTECTOMY WITH RECONSTRUCTION. SKIN GRAFT FROM THIGH TO RIGHT BREAST. DARKENED BROWN SKIN DISCOLORATION TO PERINEAL AREA. - MUSCULOSKELETAL/RHEUMATOLOGICAL Hx Musculoskeletal Disorders: Yes Hx Falls: Yes - GASTROINTESTINAL Hx Gastrointestinal Disorders: Yes (CONSTIPATION,DYSPHAGIA H/O) Hx Gastroesophageal Reflux: Yes HX Swallowing Problems: Yes (H/O) - GENITOURINARY/GYNECOLOGICAL Hx Genitourinary Disorders: Yes (C/S X 1) Other/Comment: RIGHT BREAST MASTECTOMY WITH RECONSTRUCTION. - PSYCHIATRIC Hx Psychophysiologic Disorder: Yes Hx Depression: Yes Hx Emotional Abuse: Yes Hx Physical Abuse: No Hx Substance Use: No - SURGICAL HISTORY Hx Surgeries: Yes (RIGHT BREAST MASTECTOMY,SKIN GRAFT TAKEN FR THIGH FOR R BREAST.C/S X 1) - ANESTHESIA Hx Anesthesia: Yes Hx Anesthesia Reactions: No Hx Malignant Hyperthermia: No Meds Allergies/Adverse Reactions: Allergies Allergy/AdvReac Type Severity Reaction Status Date / Time vancomycin AdvReac Intermediate ITCHING Verified 03/30/19 13:01 - Medications Medications: Current Medications Acetaminophen (Tylenol 325mg Tab) 650 mg PO Q6H PRN PRN Reason: Fever >100.4 F Last Admin: 03/31/19 06:51 Dose: 650 mg Acetylcysteine (Acetylcysteine 20%) 4 ml IH BIDRESP [facility] Arformoterol Tartrate (Brovana) 15 mcg IH [id number] [facility] Aspirin (Ecotrin) 81 mg PO DAILY [facility] Last Admin: 03/31/19 10:04 Dose: 81 mg Benzocaine/Menthol (Cepacol Sore Throat) 1 devyn MT Q2H PRN PRN Reason: Sore Throat Last Admin: 03/30/19 18:02 Dose: 1 devyn Benztropine Mesylate (Cogentin) 0.5 mg PO Q8 [facility] Last Admin: 03/31/19 13:20 Dose: 0.5 mg Budesonide (Pulmicort Respules) 0.5 mg IH [id number] [facility] Calcium Carbonate (Caltrate) 600 mg PO DAILY [facility] Last Admin: 03/31/19 10:05 Dose: 600 mg Docusate Sodium (Colace) 100 mg PO DAILY [facility] Last Admin: 03/31/19 10:04 Dose: 100 mg Doxycycline Hyclate (Doryx) 100 mg PO Q12 [facility]; Protocol Stop: 04/07/19 22:01 Last Admin: 03/31/19 10:05 Dose: 100 mg Enoxaparin Sodium (Lovenox) 40 mg SC DAILY [facility]; Protocol Last Admin: 03/31/19 10:05 Dose: 40 mg Ergocalciferol (Drisdol 50,000 Intl Units Cap) 1 cap PO Q7D [facility] Fluoxetine HCl (Prozac) 30 mg PO DAILY [facility] Last Admin: 03/31/19 10:04 Dose: 30 mg Folic Acid (Folic Acid) 1 mg PO DAILY [facility] Last Admin: 03/31/19 10:04 Dose: 1 mg Home Med (Home Med) 1 unit PO DAILY [facility] Last Admin: 03/31/19 10:06 Dose: Not Given Sodium Chloride (Sodium Chloride 0.9%) 1,000 mls @ 125 mls/hr IV .Q8H [facility] Last Admin: 03/31/19 03:00 Dose: 125 mls/hr Cefepime HCl (Maxipime 1gm) 1 gm in 100 mls @ 100 mls/hr IVPB Q8 [facility]; Protocol Stop: 04/07/19 22:01 Last Admin: 03/31/19 13:27 Dose: 100 mls/hr Daptomycin 440 mg/ Sodium (Chloride) 100 mls @ 200 mls/hr IV Q24H [facility]; Protocol Stop: 04/09/19 11:01 Last Admin: 03/31/19 13:45 Dose: 200 mls/hr Levalbuterol HCl (Xopenex) 1.25 mg IH [id number] PRN PRN Reason: Shortness of Breath Levothyroxine Sodium (Synthroid) 100 mcg PO DAILY [facility] Last Admin: 03/31/19 10:05 Dose: 100 mcg Multivitamins (Thera Tab) 1 tab PO DAILY [facility] Last Admin: 03/31/19 10:04 Dose: 1 tab Pantoprazole Sodium (Protonix Ec Tab) 40 mg PO 0600 [facility] Last Admin: 03/31/19 06:50 Dose: 40 mg Polysaccharide Iron Complex (Ferrex-150) 150 mg PO DAILY [facility] Last Admin: 03/31/19 10:05 Dose: 150 mg Potassium Chloride (Klor-Con 10) 10 meq PO BRK [facility] Last Admin: 03/31/19 13:44 Dose: 10 meq Risperidone (Risperdal Tab) 2 mg PO Q8 [facility]; Protocol Last Admin: 03/31/19 13:22 Dose: Not Given Spironolactone (Aldactone) 50 mg PO DAILY [facility] Last Admin: 03/31/19 13:20 Dose: Not Given Zolpidem Tartrate (Ambien) 5 mg PO HS PRN; Protocol PRN Reason: Insomnia Last Admin: 03/30/19 22:14 Dose: 5 mg Physical Exam - Constitutional Appears: Non-toxic, No Acute Distress - Eye Exam Eye Exam: EOMI, PERRL - ENT Exam ENT Exam: Mucous Membranes Moist - Respiratory Exam Respiratory Exam: Rales. absent: Clear to Auscultation Bilateral, Rhonchi, Wheezes - Cardiovascular Exam Cardiovascular Exam: RRR, +S1, +S2 - GI/Abdominal Exam GI & Abdominal Exam: Normal Bowel Sounds, Soft. absent: Distended, Firm, Guarding, Organomegaly, Rigid, Tenderness - Extremities Exam Extremities exam: Positive for: normal inspection. Negative for: pedal edema - Neurological Exam Neurological exam: Alert, Oriented x3 - Psychiatric Exam Psychiatric exam: Normal Affect, Normal Mood - Skin Skin Exam: Dry, Warm Results - Vital Signs Recent Vital Signs: Last Vital Signs Temp 97.9 F 03/31/19 12:00 Pulse 95 H 03/31/19 14:00 Resp 18 03/31/19 12:00 BP 89/57 L 03/31/19 12:00 Pulse Ox 92 L 03/31/19 06:00 - Labs Result Diagrams: 03/31/19 07:15 03/31/19 07:15 Labs: Laboratory Results - last 24 hr 03/30/19 03/31/19 03/31/19 09:00 04:10 07:15 WBC RBC Hgb Hct MCV MCH MCHC RDW Plt Count MPV Sodium 137 Potassium 3.1 L Chloride 108 H Carbon Dioxide 21 Anion Gap 12 BUN 9 Creatinine 0.8 Est GFR ( Amer) > 60 Est GFR (Non-Af Amer) > 60 Random Glucose 119 H Calcium 7.7 L Procalcitonin 0.47 Ur L.pneumophila Ag Negative 03/31/19 07:15 WBC 17.5 H D RBC 3.49 L Hgb 9.2 L Hct 27.9 L MCV 79.9 L MCH 26.1 MCHC 32.6 RDW 18.6 H Plt Count 320 MPV 9.2 Sodium Potassium Chloride Carbon Dioxide Anion Gap BUN Creatinine Est GFR ( Amer) Est GFR (Non-Af Amer) Random Glucose Calcium Procalcitonin Ur L.pneumophila Ag Assessment & Plan - Assessment and Plan (Free Text) Assessment: Patient is a 49yo female with PMHx significant for bipolar disorder, schizoaffective disorder s/p ECT, HTN, right breast cancer s/p chemoXRT and right mastectomy, rheumatoid arthritis on adalimumab/methotrexate, and hypothyroidism who presented to the ED with fever and dizziness -Left lung pneumonia -Question of dysphagia contributing to above Plan: -Patient not complaining of dysphagia presently and tolerated liquids without issue -Tolerating liquid diet without issue, will start pureed diet for dinner -It should be noted that on prior admissions, patient was averse to food from hospital but tolerated outside food -If tolerating puree, OK for food from home -Recent EGD reviewed - encourage lifestyle modification and slow deliberate eating -Consider CUSTOMER MARKETING ASSISTANT eval and swallow study if concern for aspiration pneumonia -No plan for endoscopic evaluation at this time -Outpatient referral for motility testing may be warranted if symptoms persist - Date & Time Date: 03/31/19 Time: 15:00 <Tan Bob V - Last Filed: 04/01/19 21:27> Meds - Medications Medications: Current Medications Acetaminophen (Tylenol 325mg Tab) 650 mg PO Q6H PRN PRN Reason: Fever >100.4 F Last Admin: 03/31/19 06:51 Dose: 650 mg Acetylcysteine (Acetylcysteine 20%) 4 ml IH BIDRESP [facility] Arformoterol Tartrate (Brovana) 15 mcg IH [id number] [facility] Aspirin (Ecotrin) 81 mg PO DAILY [facility] Last Admin: 03/31/19 10:04 Dose: 81 mg Benzocaine/Menthol (Cepacol Sore Throat) 1 devyn MT Q2H PRN PRN Reason: Sore Throat Last Admin: 03/30/19 18:02 Dose: 1 devyn Benztropine Mesylate (Cogentin) 0.5 mg PO Q8 [facility] Last Admin: 03/31/19 13:20 Dose: 0.5 mg Budesonide (Pulmicort Respules) 0.5 mg IH [id number] Calcium Carbonate (Caltrate) 600 mg PO DAILY [facility] Last Admin: 03/31/19 10:05 Dose: 600 mg Docusate Sodium (Colace) 100 mg PO DAILY [facility] Last Admin: 03/31/19 10:04 Dose: 100 mg Doxycycline Hyclate (Doryx) 100 mg PO Q12 [facility]; Protocol Stop: 04/07/19 22:01 Last Admin: 03/31/19 10:05 Dose: 100 mg Enoxaparin Sodium (Lovenox) 40 mg SC DAILY [facility]; Protocol Last Admin: 03/31/19 10:05 Dose: 40 mg Ergocalciferol (Drisdol 50,000 Intl Units Cap) 1 cap PO Q7D [facility] Fluoxetine HCl (Prozac) 30 mg PO DAILY [facility] Last Admin: 03/31/19 10:04 Dose: 30 mg Folic Acid (Folic Acid) 1 mg PO DAILY [facility] Last Admin: 03/31/19 10:04 Dose: 1 mg Home Med (Home Med) 1 unit PO DAILY [facility] Last Admin: 03/31/19 10:06 Dose: Not Given Sodium Chloride (Sodium Chloride 0.9%) 1,000 mls @ 125 mls/hr IV .Q8H [facility] Last Admin: 03/31/19 16:56 Dose: 125 mls/hr Cefepime HCl (Maxipime 1gm) 1 gm in 100 mls @ 100 mls/hr IVPB Q8 [facility]; Protocol Stop: 04/07/19 22:01 Last Admin: 03/31/19 13:27 Dose: 100 mls/hr Daptomycin 440 mg/ Sodium (Chloride) 100 mls @ 200 mls/hr IV Q24H [facility]; Protocol Stop: 04/09/19 11:01 Last Admin: 03/31/19 13:45 Dose: 200 mls/hr Levalbuterol HCl (Xopenex) 1.25 mg IH [id number] PRN PRN Reason: Shortness of Breath Levothyroxine Sodium (Synthroid) 100 mcg PO DAILY [facility] Last Admin: 03/31/19 10:05 Dose: 100 mcg Multivitamins (Thera Tab) 1 tab PO DAILY [facility] Last Admin: 03/31/19 10:04 Dose: 1 tab Pantoprazole Sodium (Protonix Ec Tab) 40 mg PO 0600 [facility] Last Admin: 03/31/19 06:50 Dose: 40 mg Polysaccharide Iron Complex (Ferrex-150) 150 mg PO DAILY [facility] Last Admin: 03/31/19 10:05 Dose: 150 mg Potassium Chloride (Klor-Con 10) 10 meq PO BRK [facility] Last Admin: 03/31/19 13:44 Dose: 10 meq Risperidone (Risperdal Tab) 2 mg PO Q8 [facility]; Protocol Last Admin: 03/31/19 13:22 Dose: Not Given Spironolactone (Aldactone) 50 mg PO DAILY [facility] Last Admin: 03/31/19 13:20 Dose: Not Given Zolpidem Tartrate (Ambien) 5 mg PO HS PRN; Protocol PRN Reason: Insomnia Last Admin: 03/30/19 22:14 Dose: 5 mg Results - Vital Signs Recent Vital Signs: Last Vital Signs Temp 97.9 F 03/31/19 12:00 Pulse 95 H 03/31/19 14:00 Resp 18 03/31/19 12:00 BP 89/57 L 03/31/19 12:00 Pulse Ox 92 L 03/31/19 06:00 - Labs Result Diagrams: 03/31/19 07:15 04/01/19 06:47 Labs: Laboratory Results - last 24 hr 03/30/19 03/31/19 03/31/19 09:00 04:10 07:15 WBC RBC Hgb Hct MCV MCH MCHC RDW Plt Count MPV Sodium 137 Potassium 3.1 L Chloride 108 H Carbon Dioxide 21 Anion Gap 12 BUN 9 Creatinine 0.8 Est GFR ( Amer) > 60 Est GFR (Non-Af Amer) > 60 Random Glucose 119 H Calcium 7.7 L Procalcitonin 0.47 Ur L.pneumophila Ag Negative 03/31/19 07:15 WBC 17.5 H D RBC 3.49 L Hgb 9.2 L Hct 27.9 L MCV 79.9 L MCH 26.1 MCHC 32.6 RDW 18.6 H Plt Count 320 MPV 9.2 Sodium Potassium Chloride Carbon Dioxide Anion Gap BUN Creatinine Est GFR ( Amer) Est GFR (Non-Af Amer) Random Glucose Calcium Procalcitonin Ur L.pneumophila Ag Attending/Attestation - Attestation I have personally seen and examined this patient.: No I have fully participated in the care of the patient.: Yes I have reviewed all pertinent clinical information: Yes Notes (Text): This is an addendum to the GI consultation report dictated by the GI fellow. The patient was seen and evaluated earlier. Discussed with nursing staff. The dysphagia in this patient is probably multifactorial etiology including a component of functional problem. Patient is on pured diet. Will request swallowing evaluation We Will consider advancing the diet after swallowing evaluation 03/31/19 16:59 04/01/19 21:25
--- NOTE | 2019-03-31 17:27 | CON ---
DATE OF CONSULTATION: 03/31/2019 The patient is in bed, in no acute distress. CHIEF COMPLAINT: Fever x1 day. HISTORY OF PRESENT ILLNESS: This is a 49-year-old female with history of breast cancer, hypothyroidism, depression, right arm lymphedema, schizoaffective, E-coli urinary tract infection, enterococcus urinary tract infection, who was admitted with a fever and found to have a temperature of 102. REVIEW OF SYSTEMS: Twelve-point review of systems performed. PAST MEDICAL HISTORY: Significant for hypothyroidism; breast cancer, received chemotherapy and radiation; depression; right arm lymphedema; schizoaffective disease; E. coli urinary tract infection; and enterococcus urinary tract infection. PAST SURGICAL HISTORY: Significant for right mastectomy and reconstruction breast surgery with implantation in 2012. ALLERGIES: THE PATIENT IS ALLERGIC TO VANCOMYCIN. MEDICATIONS: Medications at home are reviewed. The patient is on Prozac and Humira. PHYSICAL EXAMINATION: VITAL SIGNS: Temperature of 98, T-max is 102.7, heart rate of 100, blood pressure was down to 86/54 and responded with fluids up to 105/60, and respiratory rate of 18. HEENT: Examination of HEENT is unremarkable. NECK: Supple. LUNGS: Have decreased breath sounds. HEART: Normal S1, S2. ABDOMEN: Soft, nontender. LABORATORY DATA: Laboratory examination reveals the patient's blood cultures are positive for gram-positive cocci and white count is 14,200, it was up to 17,000, hemoglobin is noted to be at 11, platelets of 359, BUN of 16, creatinine of 1. Urinalysis is noted. Microbiology reveals the blood cultures, one bottle is positive for gram-positive cocci in chains and the second bottle is negative, no growth. CAT scan of the abdomen and pelvis shows a left lower lobe pneumonia. Chest x-ray shows a left lower lobe pneumonia. ASSESSMENT AND PLAN: A 49-year-old female with; 1. Severe sepsis with left lower lobe healthcare-associated pneumonia with gram-positive cocci bacteremia, and THE PATIENT IS ALLERGIC TO VANCOMYCIN, we will give one dose of daptomycin and continue with doxycycline and cefepime pending further identification of gram-positive cocci in the blood, the urine culture, and further workup. We will follow with you. Scotty James MD [facility] # [id number]
--- NOTE | 2019-03-31 18:45 | CON ---
DATE OF CONSULTATION: 03/31/2019 HISTORY OF PRESENT ILLNESS: In short, the patient is a 49-year-old [place] female. The patient has a history of schizoaffective disorder. The patient was admitted on the medical side for evaluation of syncopal episode and dizziness. Psych consult was called because the patient had history of being under ECT treatment and history of psychiatric admissions. The patient is very familiar to this curriculum writer from the previous admissions as well as treatment-resistance psychosis and prolonged hospitalization. The patient improved significantly after ECT treatment after what the patient was noncompliant with the ECT treatment for past 3 months. The patient was seen and examined today. The patient presented to be alert and oriented, pleasant and cooperative. The patient remembered this curriculum writer. The patient said that she was doing fine. The patient is not aware if she needs to continue on ECT or not. The patient reported that currently she works. This curriculum writer advised the patient to come for ECT treatment at least once every other month. The patient verbalized understanding. The patient remembers that she is taking medication. She reported that her family is very supportive. The patient denied that she has any voices, denied seeing things. The patient presented relatively well. PHYSICAL EXAMINATION: VITAL SIGNS: Reviewed. Temperature 97.9, pulse 95, blood pressure 89/57, respirations 18. MEDICATIONS: Reviewed. The patient is on Tylenol, Brovana, aspirin, Cepacol, Cogentin, Pulmicort, calcium carbonate, cefepime, doxycycline, Lovenox, Drisdol, Prozac 30 mg daily, folic acid. The patient also is on levalbuterol, Synthroid, multivitamins, Protonix, Ferrex, K-Yomaira, Risperdal 2 mg every 8 hours, sodium chloride, and Ambien 5 mg at the nighttime as needed. LABORATORY DATA: Labs reviewed. The patient has leukocytosis today, is 17.5. Coagulation reviewed. Blood gas reviewed. Chemistry reviewed as well as urinalysis reviewed. MENTAL STATUS EXAMINATION: The patient presented to be alert, pleasant, cooperative, socially appropriate, intermittent eye contact. Mood described as "okay, thank God." Affect was reactive, mood congruent. Thought process seems to be mildly disorganized, but overall fair. Thought content, the patient denied visual, auditory, or tactile hallucinations. Denied any paranoid ideation. The patient has a history of treatment-resistance depression, disorganized behavior, but right now, she presented little better. Insight and judgment seemed to be limited, but improving. Impulses are well controlled. 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 PLAN: We will continue current medication, current management. We will obtain collateral information from the family. The patient was educated to come back for ECT treatment because her symptoms were severe as well as ECT showed very positive response for the patient's symptoms. The patient verbalized understanding. Thank you very much for letting me participate in care of your patient. Should you have any questions give me a call back. Carolyn Ross MD [facility]
[2019-03-31] MEDS: Arformoterol 15 mcg/2 ml Inh Sol IH SCH (19:22)
[2019-03-31] MEDS: Budesonide 0.5 mg/2 ml Inhal Susp UD IH SCH (19:22)
[2019-03-31] MEDS: Acetylcysteine 20% Inhal Soln (4ml) IH SCH (19:22)
--- NOTE | 2019-04-01 00:36 | CON ---
DATE: 03/31/2019 CONSULT SERVICE: Cardiology. REASON FOR CONSULTATION AND FOLLOWUP: Hypotension, cardiac evaluation. BRIEF CLINICAL HISTORY: This is a 49-year-old female with past medical history of schizoaffective disorder, status post ECT, hypothyroidism, breast CA, status post right mastectomy with reconstruction, chemoradiation, presented with fevers, dizziness, and sepsis, Cardiology consult was called for hypotension. The patient denies any chest pain. Denies any shortness of breath. PAST MEDICAL HISTORY: Significant for rheumatoid arthritis, breast CA, status post mastectomy and reconstruction 20 years ago, and history of schizoaffective disorder. SOCIAL HISTORY: Denies any smoking. Denies any history of alcohol abuse. PAST SURGICAL HISTORY: Significant for mastectomy right 20 years ago, status post chemo. CURRENT MEDICATIONS: The patient at home was taking Risperdal, spironolactone, methotrexate, levothyroxine, calcium carbonate, and Cogentin. REVIEW OF SYSTEMS: As per HPI. ALLERGIES: TO VANCOMYCIN. PHYSICAL EXAMINATION: GENERAL: As follows; height of the patient 5 feet 2 inches, weight of the patient 160 pounds, and body mass index 30 kg/m2. VITAL SIGNS: Temperature afebrile, heart rate 82, and blood pressure 90/58. HEENT: PERRLA. Extraocular muscles intact. NECK: Supple. No carotid bruit or thyromegaly. CHEST: Clear to auscultation. HEART: S1 and S2 regular. ABDOMEN: Soft. EXTREMITIES: Clubbing and cyanosis negative. LABORATORY DATA: WBC 17.5, hemoglobin 9.2, hematocrit 27.9, and platelet count 320. Chemistries shows sodium 137, potassium 3.1, chloride 108, carbon dioxide 21, anion gap of 12, BUN 9, and creatinine 0.8. IMPRESSION: A 49-year-old female with past medical history significant for breast cancer, status post mastectomy 20 years ago, history of psychiatric disorder, admitted with sepsis and hypotension. Blood cultures positive. RECOMMENDATIONS: Start IV fluid, broad-spectrum antibiotics. Start low dose of dopamine. We will get echo to assess LV function, rule out endocarditis. We will also get lipid profile, TSH, and hemoglobin A1c. We will follow with you. Thank you Dr. Ca for providing us the opportunity in taking care of the patient, Yomaira Suman. Jasmine Lloyd MD
[2019-04-01] MEDS: DOPamine 400mg/250ml D5W 400 MG/250 ML BAG IV PRN ×2 (01:17→21:49)
[2019-04-01] MEDS: Cefepime 1gm in NS 100ml 1 GM/100 ML BAG IVPB SCH ×3 (05:03→21:48)
[2019-04-01] MEDS: Pantoprazole 40 mg EC Tab PO SCH ×2 (05:03→05:09)
[2019-04-01] MEDS ORDERED: Magnesium Sulfate 2 GM in Sodium Chloride 0.9% 100 ML IV ONE (07:00)
[2019-04-01] MEDS: Acetylcysteine 20% Inhal Soln (4ml) IH SCH ×2 (07:08→20:13)
[2019-04-01] MEDS: Arformoterol 15 mcg/2 ml Inh Sol IH SCH ×2 (07:08→20:12)
[2019-04-01] MEDS: Budesonide 0.5 mg/2 ml Inhal Susp UD IH SCH ×2 (07:09→20:12)
[2019-04-01] MEDS ORDERED: Magnesium Sulfate 2 gm/50 ml 2 GM/50 ML BAG IV ONE (07:15)
--- NOTE | 2019-04-01 08:10 | HP ---
DATE OF EXAM: 03/30/2019 REASON FOR THE VISIT TO THE EMERGENCY ROOM: Left-sided pain. HISTORY OF PRESENT ILLNESS: The patient is a 49-year-old female who came in with the past medical history of severe depression, requiring ECT, with resistance to medications, but she did well. Since then, she seems stable. She also has history of breast cancer, hypothyroidism, history of mastectomy and reconstructive, and she received chemoradiation which affected her esophagus with dysphagia and came in because of left-sided pain. Also, she had a fever and chills. The patient also had some mild cough. She does complain of mild headache. Otherwise, no diarrhea, no nausea, no vomiting, and no short of breath. PAST MEDICAL HISTORY: As I mentioned, she had a mastectomy with reconstructive surgery. She has hypothyroidism. She does have depression with longstanding psych history for more than 20 years. She does have some musculoskeletal symptoms. SOCIAL HISTORY: No smoking. No drinking. No drugs. She lives with her . She has two daughters. 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 She seems better when she works psychologically. FAMILY HISTORY: Noncontributory. ALLERGIES: SHE HAS VANCOMYCIN ALLERGY. REVIEW OF SYSTEMS: She has complained of the arthritis pain. She does feel sometimes on and off depressed. She does sometimes complain of comes out, but otherwise the patient is stable with negative review of systems. MEDICATIONS: The patient also takes a lot of home medications including psychiatric medications include risperidone 2 mg t.i.d., Ambien 5 mg at bedtime, vitamin A, Aldactone 50 mg p.o. daily and 25 p.o. every evening, multivitamin, methotrexate 2.5 mg p.o. daily, iron pills 150 mg once a day, folic acid, Prozac 30 mg, vitamin D once a day, Colace, calcium carbonate, Cogentin, aspirin, and she takes Humira injections. PHYSICAL EXAMINATION: GENERAL: The patient was seen, lying in bed on her right side. She is in no respiratory distress. VITAL SIGNS: Temperature 101.9, heart rate 96, blood pressure 98, respiration 19, and saturation 98%. HEAD AND NECK: Normal. No JVD. No thyromegaly. CHEST: Clear bilaterally. Diminished breath sounds on the left side. The patient also has right mastectomy. CARDIAC: First sound and second sound normal. ABDOMEN: Soft and nontender. EXTREMITIES: No edema. Right arm has lymphedema. LABORATORY DATA: White count 14.2, hemoglobin 11.1, hematocrit 33.9, and platelet 359. PT and PTT within normal range. Chemistry shows sodium 137, potassium 4.2, chloride 100, bicarb 26, BUN 16, creatinine 1, blood sugar 141, magnesium 1.6. Her liver function test was normal except AST of 43. The patient also had a blood gas which shows pH of 7.46, pCO2 of 42, bicarb 29, pO2 of 36, venous blood, sugar 144 that was in room air. The patient also had a chest x-ray, which showed large left lower lobe consolidation. CT abdomen and pelvis was done with IV contrast, and it showed left lower lobe consolidation. IMPRESSION AND PLAN: This is a 49-year-old female with a history of psychiatric history. She did have history of severe psychiatric disorder including severe depression/intractable depression which is resolved with electroconvulsive therapy. She came in today with fever, left-sided pain, pneumonia on the chest x-ray, also evident on the CT of abdomen and pelvis. She had a fever of 101 and leukocytosis . We admitted the patient with pneumonia and immunocompromised patient. She is on Humira and methotrexate which we hold it off. We will get Infectious Disease consult. We will give the patient Merrem plus Levaquin. The patient got the dose, and we will get Dr. James, Infectious Disease consult and Dr. Alves, pulmonary consult. History of severe depression. We will resume her medications. We will get Dr. Leon, psychiatry consult. Plan is to continue antibiotics and inhaled bronchodilators. Follow up with the consultants. Also, we will consider gastroenterology consultation with Dr. Bob for evaluation of dysphagia. She did not complain of any dysphagia, but she may need further evaluation for possible aspiration. We may consider keeping the patient nothing by mouth. We will see how she will do with that with healthy heart diet . We will continue followup and observe. Continue intravenous fluids at 125 mL of normal saline and monitor her blood pressure. We will repeat labs in the morning. Igor Ca MD
--- NOTE | 2019-04-01 08:20 | PN ---
DATE: 04/01/2019 SUBJECTIVE: The patient is in bed, in no acute distress, nontoxic. PHYSICAL EXAMINATION: VITAL SIGNS: She has low-grade fever and temperature is down to 100 this morning, blood pressure is 120/70, respiratory rate 20, heart rate of 93. HEENT: Unremarkable. NECK: Supple. LUNGS: Have decreased breath sounds. HEART: Normal S1, S2. ABDOMEN: Soft, nontender. No organomegaly, rebound or guarding. Review of orders reveals the patient to be on daptomycin, doxycycline and cefepime. Review of the blood cultures reveals the gram-positive cocci in one bottle and is in chains. The patient had a CAT scan of the abdomen and pelvis which showed a left lower lobe consolidation. ASSESSMENT AND PLAN: This is a 49-year-old female with obesity with a BMI of 31 who was admitted with severe sepsis, left lower lobe healthcare-associated pneumonia with gram-positive cocci bacteremia and the patient is vancomycin, daptomycin, cefepime and doxycycline. We will check on the repeat cultures. We will check on the identification of gram-positive cocci. We will also check on the echo and we will follow with you. Should have a CPK because of the daptomycin. Scotty James MD
[2019-04-01 08:26] LABS: BLOOD UREA NITROGEN 8 mg/dL (7-21); CALCIUM 8.1 mg/dL (8.4-10.5); GFR NON-AFRICAN AMERICAN > 60
[2019-04-01] MEDS: Potassium Chloride 10 mEq ER Tab PO SCH (08:33)
--- NOTE | 2019-04-01 09:06 | CP.PCM.PN ---
Subjective - Date & Time of Evaluation Date of Evaluation: 04/01/19 Time of Evaluation: 06:20 - Subjective Subjective: Awake, alert. no distress Reason for consultation and follow up: Cardiac evaluation of hypotension, history of schizoaffective disorder hypothyroidism, and breast cancer Seen and examined by me and Dr. Lloyd Objective - Vital Signs/Intake and Output Vital Signs (last 24 hours): Temp Pulse Resp BP Pulse Ox 100.0 F H 93 H 20 127/80 93 L 04/01/19 05:57 04/01/19 06:00 04/01/19 05:57 04/01/19 05:57 04/01/19 05:57 Intake and Output: 04/01/19 04/01/19 06:59 18:59 Intake Total 2662 Balance 2662 - Medications Medications: Current Medications Acetaminophen (Tylenol 325mg Tab) 650 mg PO Q6H PRN PRN Reason: Fever >100.4 F Last Admin: 03/31/19 06:51 Dose: 650 mg Acetylcysteine (Acetylcysteine 20%) 4 ml IH BIDRESP [facility] Last Admin: 04/01/19 07:08 Dose: 4 ml Arformoterol Tartrate (Brovana) 15 mcg IH [id number] DAT Last Admin: 04/01/19 07:08 Dose: 15 mcg Aspirin (Ecotrin) 81 mg PO DAILY [facility] Last Admin: 03/31/19 10:04 Dose: 81 mg Benzocaine/Menthol (Cepacol Sore Throat) 1 devyn MT Q2H PRN PRN Reason: Sore Throat Last Admin: 03/30/19 18:02 Dose: 1 devyn Benztropine Mesylate (Cogentin) 0.5 mg PO Q8 [facility] Last Admin: 04/01/19 05:09 Dose: Not Given Budesonide (Pulmicort Respules) 0.5 mg IH [id number] [facility] Last Admin: 04/01/19 07:09 Dose: 0.5 mg Calcium Carbonate (Caltrate) 600 mg PO DAILY [facility] Last Admin: 03/31/19 10:05 Dose: 600 mg Docusate Sodium (Colace) 100 mg PO DAILY DAT Last Admin: 03/31/19 10:04 Dose: 100 mg Doxycycline Hyclate (Doryx) 100 mg PO Q12 [facility]; Protocol Stop: 04/07/19 22:01 Last Admin: 03/31/19 22:51 Dose: 100 mg Enoxaparin Sodium (Lovenox) 40 mg SC DAILY [facility]; Protocol Last Admin: 03/31/19 10:05 Dose: 40 mg Ergocalciferol (Drisdol 50,000 Intl Units Cap) 1 cap PO Q7D [facility] Fluoxetine HCl (Prozac) 30 mg PO DAILY [facility] Last Admin: 03/31/19 10:04 Dose: 30 mg Folic Acid (Folic Acid) 1 mg PO DAILY [facility] Last Admin: 03/31/19 10:04 Dose: 1 mg Home Med (Home Med) 1 unit PO DAILY [facility] Last Admin: 03/31/19 10:06 Dose: Not Given Sodium Chloride (Sodium Chloride 0.9%) 1,000 mls @ 125 mls/hr IV .Q8H [facility] Last Admin: 03/31/19 22:50 Dose: 125 mls/hr Cefepime HCl (Maxipime 1gm) 1 gm in 100 mls @ 100 mls/hr IVPB Q8 [facility]; Protocol Stop: 04/07/19 22:01 Last Admin: 04/01/19 05:03 Dose: 100 mls/hr Daptomycin 440 mg/ Sodium (Chloride) 100 mls @ 200 mls/hr IV Q24H [facility]; Protocol Stop: 04/09/19 11:01 Last Admin: 03/31/19 13:45 Dose: 200 mls/hr Dopamine HCl/Dextrose (Dopamine 400mg/250ml D5w) 400 mg in 250 mls @ 13.608 mls/hr IV .[id number] PRN PRN Reason: FOR SBP <100 Last Admin: 04/01/19 01:17 Dose: 13.608 mls/hr Levalbuterol HCl (Xopenex) 1.25 mg IH [id number] PRN PRN Reason: Shortness of Breath Levothyroxine Sodium (Synthroid) 100 mcg PO DAILY [facility] Last Admin: 03/31/19 10:05 Dose: 100 mcg Magnesium Oxide (Mag-Ox) 400 mg PO BID [facility] Multivitamins (Thera Tab) 1 tab PO DAILY [facility] Last Admin: 03/31/19 10:04 Dose: 1 tab Pantoprazole Sodium (Protonix Ec Tab) 40 mg PO 0600 [facility] Last Admin: 04/01/19 05:09 Dose: Not Given Polysaccharide Iron Complex (Ferrex-150) 150 mg PO DAILY [facility] Last Admin: 03/31/19 10:05 Dose: 150 mg Potassium Chloride (Klor-Con 10) 10 meq PO BRK [facility] Last Admin: 04/01/19 08:33 Dose: 10 meq Risperidone (Risperdal Tab) 2 mg PO Q8 [facility]; Protocol Last Admin: 04/01/19 05:09 Dose: Not Given Spironolactone (Aldactone) 50 mg PO DAILY [facility] Last Admin: 03/31/19 13:20 Dose: Not Given Zolpidem Tartrate (Ambien) 5 mg PO HS PRN; Protocol PRN Reason: Insomnia Last Admin: 03/30/19 22:14 Dose: 5 mg - Labs Labs: 03/31/19 07:15 04/01/19 06:47 PT 13.9 SECONDS (9.4-12.5) H 03/30/19 09:20 INR 1.23 03/30/19 09:20 APTT 27.0 Seconds (26.9-38.3) 03/30/19 09:20 - Constitutional Appears: Non-toxic, No Acute Distress - Head Exam Head Exam: NORMAL INSPECTION, NORMOCEPHALIC - Eye Exam Eye Exam: Normal appearance Pupil Exam: NORMAL ACCOMODATION - ENT Exam ENT Exam: Mucous Membranes Moist, Normal Exam - Respiratory Exam Respiratory Exam: Decreased Breath Sounds, Clear to Ausculation Bilateral, NORMAL BREATHING PATTERN - Cardiovascular Exam Cardiovascular Exam: REGULAR RHYTHM, +S1, +S2 - GI/Abdominal Exam GI & Abdominal Exam: Soft, Normal Bowel Sounds - Extremities Exam Extremities Exam: Full ROM, Normal Capillary Refill - Neurological Exam Neurological Exam: Alert, Awake, Oriented x3 - Psychiatric Exam Psychiatric exam: Normal Affect, Normal Mood - Skin Skin Exam: Dry, Normal Color, Warm Assessment and Plan - Assessment and Plan (Free Text) Assessment: A 49 year old female who came in to the ER due to fever and dizziness. History of schizoaffective disorder ,depression,GERD, rheumatoid arthritis, hypothyroidism, and breast cancer (s/p right mastectomy and reconstruction) 20 years ago with chemo. Consult was called for hypotension. Dopamine started. CT scan showing a left lower lung consolidation consistent with pneumonia. ID on consult. On IV antibiotics. For echo to evalaute LV function and endocarditis. Pulmonary and ID on consult. Plan: No distress For Echo to evaluate LV function and rule out endocarditis Heart rate stable Blood pressure stable Continue Dopamine drip Continue current management Continue current medications ID on consult Continue IV antibiotics per ID Will follow up Plan and treatment discussed with Dr. Lloyd
[2019-04-01] MEDS ORDERED: Potassium Chloride 20 mEq ER Tab PO ONE ×5 (09:41→20:00)
[2019-04-01] MEDS: Sodium Chloride 0.9% 1,000 ML IV SCH ×3 (10:45→21:59)
[2019-04-01] MEDS: Iron Complex Polysacch 150mg Cap PO SCH (11:09)
[2019-04-01] MEDS: VITAMIN A 8000 UNIT PO SCH (11:10)
[2019-04-01] MEDS: Magnesium Oxide 400 mg Tab UD PO SCH ×2 (11:11→17:27)
[2019-04-01] MEDS: Enoxaparin 40 mg Syringe SC SCH (11:11)
[2019-04-01] MEDS: Levothyroxine 100 MCG TAB PO SCH (11:12)
[2019-04-01] MEDS: Multivitamin Therapeutic Tab PO SCH (11:12)
--- NOTE | 2019-04-01 11:52 | CP.PCM.PN ---
<AndresmayraRadames - Last Filed: 04/01/19 17:38> Subjective - Date & Time of Evaluation Date of Evaluation: 04/01/19 Time of Evaluation: 08:05 - Subjective Subjective: PGY6 GI Fellow Progress Note Patient seen and examined bedside this morning. The patient states that she is doing better but has ongoing LUQ/flank discomfort, worse with deep inspiration. No events overnight. present this morning. Both deny any evidence for dysphagia. 12 system ROS performed and negative except where stated Objective - Vital Signs/Intake and Output Vital Signs (last 24 hours): Temp Pulse Resp BP Pulse Ox 100.0 F H 93 H 20 127/80 93 L 04/01/19 05:57 04/01/19 06:00 04/01/19 05:57 04/01/19 05:57 04/01/19 05:57 Intake and Output: 04/01/19 04/01/19 06:59 18:59 Intake Total 2662 Balance 2662 - Medications Medications: Current Medications Acetaminophen (Tylenol 325mg Tab) 650 mg PO Q6H PRN PRN Reason: Fever >100.4 F Last Admin: 03/31/19 06:51 Dose: 650 mg Acetylcysteine (Acetylcysteine 20%) 4 ml IH BIDRESP [facility] Last Admin: 04/01/19 07:08 Dose: 4 ml Arformoterol Tartrate (Brovana) 15 mcg IH [id number] [facility] Last Admin: 04/01/19 07:08 Dose: 15 mcg Aspirin (Ecotrin) 81 mg PO DAILY [facility] Last Admin: 04/01/19 11:09 Dose: 81 mg Benzocaine/Menthol (Cepacol Sore Throat) 1 devyn MT Q2H PRN PRN Reason: Sore Throat Last Admin: 03/30/19 18:02 Dose: 1 devyn Benztropine Mesylate (Cogentin) 0.5 mg PO Q8 [facility] Last Admin: 04/01/19 05:09 Dose: Not Given Budesonide (Pulmicort Respules) 0.5 mg IH [id number] [facility] Last Admin: 04/01/19 07:09 Dose: 0.5 mg Calcium Carbonate (Caltrate) 600 mg PO DAILY [facility] Last Admin: 04/01/19 11:29 Dose: 600 mg Docusate Sodium (Colace) 100 mg PO DAILY [facility] Last Admin: 04/01/19 11:09 Dose: 100 mg Doxycycline Hyclate (Doryx) 100 mg PO Q12 [facility]; Protocol Stop: 04/07/19 22:01 Last Admin: 04/01/19 11:09 Dose: 100 mg Enoxaparin Sodium (Lovenox) 40 mg SC DAILY [facility]; Protocol Last Admin: 04/01/19 11:11 Dose: 40 mg Ergocalciferol (Drisdol 50,000 Intl Units Cap) 1 cap PO Q7D [facility] Fluoxetine HCl (Prozac) 30 mg PO DAILY [facility] Last Admin: 04/01/19 11:14 Dose: 30 mg Folic Acid (Folic Acid) 1 mg PO DAILY [facility] Last Admin: 04/01/19 11:10 Dose: 1 mg Furosemide (Lasix) 40 mg IV ONCE ONE Stop: 04/01/19 17:01 Home Med (Home Med) 1 unit PO DAILY [facility] Last Admin: 04/01/19 11:10 Dose: Not Given Sodium Chloride (Sodium Chloride 0.9%) 1,000 mls @ 125 mls/hr IV .Q8H [facility] Last Admin: 04/01/19 10:45 Dose: 125 mls/hr Cefepime HCl (Maxipime 1gm) 1 gm in 100 mls @ 100 mls/hr IVPB Q8 [facility]; Protocol Stop: 04/07/19 22:01 Last Admin: 04/01/19 05:03 Dose: 100 mls/hr Daptomycin 440 mg/ Sodium (Chloride) 100 mls @ 200 mls/hr IV Q24H [facility]; Protocol Stop: 04/09/19 11:01 Last Admin: 04/01/19 11:38 Dose: 200 mls/hr Dopamine HCl/Dextrose (Dopamine 400mg/250ml D5w) 400 mg in 250 mls @ 13.608 mls/hr IV .[id number] PRN PRN Reason: FOR SBP <100 Last Admin: 04/01/19 01:17 Dose: 13.608 mls/hr Levalbuterol HCl (Xopenex) 1.25 mg IH [id number] PRN PRN Reason: Shortness of Breath Levothyroxine Sodium (Synthroid) 100 mcg PO DAILY [facility] Last Admin: 04/01/19 11:12 Dose: 100 mcg Magnesium Oxide (Mag-Ox) 400 mg PO BID [facility] Last Admin: 04/01/19 11:11 Dose: 400 mg Multivitamins (Thera Tab) 1 tab PO DAILY [facility] Last Admin: 04/01/19 11:12 Dose: 1 tab Pantoprazole Sodium (Protonix Ec Tab) 40 mg PO 0600 [facility] Last Admin: 04/01/19 05:09 Dose: Not Given Polysaccharide Iron Complex (Ferrex-150) 150 mg PO DAILY [facility] Last Admin: 04/01/19 11:09 Dose: 150 mg Potassium Chloride (Klor-Con 10) 10 meq PO BRK [facility] Last Admin: 04/01/19 08:33 Dose: 10 meq Potassium Chloride (K-Dur 20 Meq Er Tab) 40 meq PO ONCE ONE Stop: 04/01/19 15:01 Potassium Chloride (K-Dur 20 Meq Er Tab) 40 meq PO ONCE ONE Stop: 04/01/19 19:01 Potassium Phos/Sodium Phos (Neutra-Phos) 1 pkt PO BID [facility] Stop: 04/02/19 23:59 Risperidone (Risperdal Tab) 2 mg PO Q8 [facility]; Protocol Last Admin: 04/01/19 05:09 Dose: Not Given Spironolactone (Aldactone) 50 mg PO DAILY [facility] Last Admin: 04/01/19 11:08 Dose: 50 mg Zolpidem Tartrate (Ambien) 5 mg PO HS PRN; Protocol PRN Reason: Insomnia Last Admin: 03/30/19 22:14 Dose: 5 mg - Labs Labs: 03/31/19 07:15 04/01/19 06:47 PT 13.9 SECONDS (9.4-12.5) H 03/30/19 09:20 INR 1.23 03/30/19 09:20 APTT 27.0 Seconds (26.9-38.3) 03/30/19 09:20 - Constitutional Appears: Non-toxic, No Acute Distress - Eye Exam Eye Exam: EOMI, PERRL - ENT Exam ENT Exam: Mucous Membranes Moist - Respiratory Exam Respiratory Exam: Clear to Ausculation Bilateral. absent: Rales, Rhonchi, Wheezes - Cardiovascular Exam Cardiovascular Exam: RRR, +S1, +S2 - GI/Abdominal Exam GI & Abdominal Exam: Soft, Normal Bowel Sounds. absent: Distended, Firm, Guarding, Rigid, Tenderness, Organomegaly - Extremities Exam Extremities Exam: Normal Inspection. absent: Pedal Edema - Neurological Exam Neurological Exam: Alert, Awake, Oriented x3 - Psychiatric Exam Psychiatric exam: Normal Affect, Normal Mood - Skin Skin Exam: Dry, Warm Assessment and Plan - Assessment and Plan (Free Text) Assessment: Patient is a 49yo female with PMHx significant for bipolar disorder, schizoaffective disorder s/p ECT, HTN, right breast cancer s/p chemoXRT and righ t mastectomy, rheumatoid arthritis on adalimumab/methotrexate, and hypothyroidism who presented to the ED with fever and dizziness -Left lung pneumonia -Question of dysphagia contributing to above Plan: -Patient tolerated clear liquids but has not tried to eat puree diet at this juncture -Explained to patient and that she must attempt to eat puree diet prior to advancement as it remains unclear if she is experiencing any dysphagia at this time -If tolerating puree, can advance and can encourage family to bring food from home -Recent EGD reviewed - encourage lifestyle modification and slow deliberate eating -Recommend VERTICAL ROLL OPERATOR eval and swallow study if concern for aspiration pneumonia or ongoing dysphagia -No plan for endoscopic evaluation at this time -Outpatient referral for motility testing may be warranted if symptoms persist <Tan Bob V - Last Filed: 04/01/19 21:24> Objective - Vital Signs/Intake and Output Vital Signs (last 24 hours): Temp Pulse Resp BP Pulse Ox 98 F 83 20 117/75 93 L 04/01/19 17:57 04/01/19 18:00 04/01/19 17:57 04/01/19 17:57 04/01/19 05:57 Intake and Output: 04/01/19 04/02/19 18:59 06:59 Intake Total 3036 Output Total 6000 Balance -2964 - Medications Medications: Current Medications Acetaminophen (Tylenol 325mg Tab) 650 mg PO Q6H PRN PRN Reason: Fever >100.4 F Last Admin: 03/31/19 06:51 Dose: 650 mg Acetylcysteine (Acetylcysteine 20%) 4 ml IH BIDRESP DAT Last Admin: 04/01/19 20:13 Dose: 4 ml Arformoterol Tartrate (Brovana) 15 mcg IH [id number] DAT Last Admin: 04/01/19 20:12 Dose: 15 mcg Aspirin (Ecotrin) 81 mg PO DAILY [facility] Last Admin: 04/01/19 11:09 Dose: 81 mg Benzocaine/Menthol (Cepacol Sore Throat) 1 devyn MT Q2H PRN PRN Reason: Sore Throat Last Admin: 03/30/19 18:02 Dose: 1 devyn Benztropine Mesylate (Cogentin) 0.5 mg PO Q8 [facility] Last Admin: 04/01/19 14:15 Dose: 0.5 mg Budesonide (Pulmicort Respules) 0.5 mg IH [id number] [facility] Last Admin: 04/01/19 20:12 Dose: 0.5 mg Calcium Carbonate (Caltrate) 600 mg PO DAILY [facility] Last Admin: 04/01/19 11:29 Dose: 600 mg Docusate Sodium (Colace) 100 mg PO DAILY [facility] Last Admin: 04/01/19 11:09 Dose: 100 mg Doxycycline Hyclate (Doryx) 100 mg PO Q12 [facility]; Protocol Stop: 04/07/19 22:01 Last Admin: 04/01/19 11:09 Dose: 100 mg Enoxaparin Sodium (Lovenox) 40 mg SC DAILY [facility]; Protocol Last Admin: 04/01/19 11:11 Dose: 40 mg Ergocalciferol (Drisdol 50,000 Intl Units Cap) 1 cap PO Q7D [facility] Fluoxetine HCl (Prozac) 30 mg PO DAILY [facility] Last Admin: 04/01/19 11:14 Dose: 30 mg Folic Acid (Folic Acid) 1 mg PO DAILY [facility] Last Admin: 04/01/19 11:10 Dose: 1 mg Home Med (Home Med) 1 unit PO DAILY [facility] Last Admin: 04/01/19 11:10 Dose: Not Given Sodium Chloride (Sodium Chloride 0.9%) 1,000 mls @ 125 mls/hr IV .Q8H [facility] Last Admin: 04/01/19 19:00 Dose: Not Given Cefepime HCl (Maxipime 1gm) 1 gm in 100 mls @ 100 mls/hr IVPB Q8 [facility]; Protocol Stop: 04/07/19 22:01 Last Admin: 04/01/19 14:15 Dose: 100 mls/hr Daptomycin 440 mg/ Sodium (Chloride) 100 mls @ 200 mls/hr IV Q24H [facility]; Protocol Stop: 04/09/19 11:01 Last Admin: 04/01/19 11:38 Dose: 200 mls/hr Dopamine HCl/Dextrose (Dopamine 400mg/250ml D5w) 400 mg in 250 mls @ 13.608 mls/hr IV .[id number] PRN PRN Reason: FOR SBP <100 Last Admin: 04/01/19 01:17 Dose: 13.608 mls/hr Levalbuterol HCl (Xopenex) 1.25 mg IH [id number] PRN PRN Reason: Shortness of Breath Levothyroxine Sodium (Synthroid) 100 mcg PO 0600 [facility] Magnesium Oxide (Mag-Ox) 400 mg PO BID [facility] Last Admin: 04/01/19 17:27 Dose: 400 mg Multivitamins (Thera Tab) 1 tab PO DAILY [facility] Last Admin: 04/01/19 11:12 Dose: 1 tab Pantoprazole Sodium (Protonix Ec Tab) 40 mg PO 0600 [facility] Last Admin: 04/01/19 05:09 Dose: Not Given Polysaccharide Iron Complex (Ferrex-150) 150 mg PO DAILY [facility] Last Admin: 04/01/19 11:09 Dose: 150 mg Potassium Chloride (Klor-Con 10) 10 meq PO BRK [facility] Last Admin: 04/01/19 08:33 Dose: 10 meq Potassium Phos/Sodium Phos (Neutra-Phos) 1 pkt PO BID [facility] Stop: 04/02/19 23:59 Last Admin: 04/01/19 17:27 Dose: 1 pkt Risperidone (Risperdal Tab) 2 mg PO Q8 [facility]; Protocol Last Admin: 04/01/19 14:15 Dose: 2 mg Spironolactone (Aldactone) 50 mg PO DAILY [facility] Last Admin: 04/01/19 11:08 Dose: 50 mg Zolpidem Tartrate (Ambien) 5 mg PO HS PRN; Protocol PRN Reason: Insomnia Last Admin: 03/30/19 22:14 Dose: 5 mg - Labs Labs: 03/31/19 07:15 04/01/19 06:47 PT 13.9 SECONDS (9.4-12.5) H 03/30/19 09:20 INR 1.23 03/30/19 09:20 APTT 27.0 Seconds (26.9-38.3) 03/30/19 09:20 Attending/Attestation - Attestation I have personally seen and examined this patient.: Yes I have fully participated in the care of the patient.: Yes I have reviewed all pertinent clinical information, including history, physical exam and plan: Yes Notes (Text): This patient was seen and evaluated earlier. This is an addendum to the GI Progress report dictated by the fellow. Patient wants to eat regular food. Admitted with a pneumonia. Patient did have an extensive esophageal evaluation. Including EGD esophagram and CT of the chest. Patient Would benefit from outpatient motility disorder. Presently on pured diet. Tolerating well. Speech therapist swallowing evaluation pending. Would consider advancing the diet after the swallowing evaluation.. 04/01/19 21:21
--- NOTE | 2019-04-01 12:39 | PN ---
DATE: 04/01/2019 PULMONARY PROGRESS NOTE REFERRING PHYSICIAN: Igor Ca MD. SUBJECTIVE: She is lying in the bed, head at 45 degrees. The left pleuritic pain is better. Low-grade fever. No nausea, vomiting, diarrhea, leg pain or leg swelling. OBJECTIVE/PHYSICAL EXAMINATION: VITAL SIGNS: Temperature is 100, heart is 93, respiratory rate is 20, blood pressure 127/80, pulse ox 93% on room air. HEENT: Moist mucous membranes. Crowded airway. NECK: Supple. No JVD. LUNGS: Have decreased breath sounds at the left base, preventing on deep breath. HEART: S1 and S2. ABDOMEN: Soft and nontender. No organomegaly. EXTREMITIES: No edema. NEUROLOGIC: Awake and alert. Follows simple commands. MEDICATIONS: She is on Mucomyst inhaled twice a day, Aldactone 50 mg daily, Ambien 5 mg at bedtime p.r.n., Brovana inhaled twice a day, calcium carbonate 600 mg daily, Cepacol lozenges every 12 hours p.r.n., Cogentin 0.5 mg p.o. every 8 hours, Colace 100 mg twice a day, daptomycin 440 mg every 24 hours, doxycycline 100 mg twice a day, Ecotrin 81 mg daily, Ferrex 150 mg daily, folic acid 1 mg daily, potassium 10 mEq daily, Lovenox 40 mg daily, cefepime 1 g IV every 8 hours, Protonix 40 mg daily, Prozac 10 mg daily, Pulmicort inhaled twice a day, Risperdal 2 mg every 8 hours, Synthroid 100 mcg daily, multivitamin, Tylenol and Xopenex inhaled every 6 hours p.r.n. LABORATORY DATA: Reviewed. Shows sodium 139, potassium 2.7, chloride 107, bicarbonate 24, BUN 8, creatinine 0.7, glucose 149, calcium is 8.1, alk phos is 2.4, magnesium 1.7, triglyceride 182 and TSH is 0.56. Microbiology is 1 out of 2 blood culture positive for gram-positive cocci. IMPRESSION AND PLAN: Bacteremia with left lower lobe pneumonia, electrolyte imbalance, chronic lung disease, schizoaffective disorder and depression. From a pulmonary point of view, continue bronchodilator. Keep head of bed at 45 degrees. Antibiotics as per Infectious Disease. Gastric and deep venous thrombosis prophylaxis. We will get a cortisol level in the morning. Replace potassium. Thank you and we will follow with you. Jasmine Alves MD
--- NOTE | 2019-04-01 13:12 | PN ---
DATE: 03/31/2019 SUBJECTIVE: The patient is stable, comfortable. She is still complaining of left-sided pain. No respiratory distress. She is afebrile. No nausea, no vomiting. PHYSICAL EXAMINATION: VITAL SIGNS: Temperature is 97.8, heart rate 83, blood pressure 90/58, respirations 18. HEAD AND NECK: Normal. No JVD. No thyromegaly. CHEST: Clear. Diminished breath sounds on the left side. CARDIAC: First sound and second sound normal. No murmur, rub, or gallop. ABDOMEN: Soft, nontender. EXTREMITIES: No edema except right arm lymphedema. NEUROLOGIC: Normal. LABORATORY DATA: White count 17.5, hemoglobin 9.2, hematocrit 27.9, and platelet 320. Chemistry: Sodium 137, potassium 3.1, chloride 108, bicarb 21, BUN 9, creatinine 0.8, blood sugar 119, and calcium 7.7. IMPRESSION: 1. Left lower lobe pneumonia in an immunocompromised patient. Currently on Merrem, switched to daptomycin plus Maxipime antibiotic 1 g intravenous every 8 hours. Continue current intravenous antibiotics plus bronchodilators. 2. Hypotension. Blood pressure is low. Continue intravenous fluids. We will get cardiology consult, Dr. Lloyd to see the patient. Blood cultures, one is positive, the other one is negative. Continue monitor . 3. Depression, severe. Continue followup with the psychiatrist, Dr. Leon. 4. Electrolyte abnormalities, potassium corrected. 5. Hypothyroidism. 6. Esophageal narrowing. PLAN: Continue current therapy. Keep on liquid diet. GI, Dr. Bob to see the patient. Continue levothyroxine. Continue inhaled bronchodilators. For hypomagnesemia, we will add magnesium and intravenous magnesium. We will repeat labs in the morning. Igor Ca MD
[2019-04-01] MEDS: Potassium & Sodium Phosphate PO SCH ×2 (14:15→17:27)
--- NOTE | 2019-04-01 14:44 | CARD ---
APPROVED REPORT Date of service: 04/01/2019 EXAM: Two-dimensional and M-mode echocardiogram with Doppler and color Doppler. INDICATION Hypertension/HCVD 2D DIMENSIONS Left Atrium (2D)3.3 (1.6-4.0cm)IVSd0.8 (0.7-1.1cm) LVDd4.3 (3.9-5.9cm)PWd1.0 (0.7-1.1cm) LVDs2.9 (2.5-4.0cm)FS (%) 32.7 % LVEF (%)61.4 (>50%) M-Mode DIMENSIONS Aortic Root2.20 (2.2-3.7cm)Aortic Cusp Exc.1.50 (1.5-2.0cm) Aortic Valve AoV Peak Ruqfastg785.0cm/Jovana Peak GR.11mmHg Mitral Valve E/A ratio0.0 TDI E/Lateral E'0.0E/Medial E'0.0 Tricuspid Valve TR Peak [id number]/sRAP [id number] Peak Gr.29mmHg [id number] LEFT VENTRICLE The left ventricle is normal size. There is normal left ventricular wall thickness. The left ventricular function is normal.EF-55-60% There is normal LV segmental wall motion. The left ventricular diastolic function is normal. No left ventricle thrombus noted on this study. There is no ventricular septal defect visualized. There is no left ventricular aneurysm. There is no mass noted in the left ventricle. RIGHT VENTRICLE The right ventricle is normal size. There is normal right ventricular wall thickness. The right ventricular systolic function is normal. ATRIA The left atrium size is normal. The right atrium size is normal. The interatrial septum is intact with no evidence for an atrial septal defect. AORTIC VALVE The aortic valve is normal in structure. No aortic regurgitation is present. There is no aortic valvular stenosis. There is no aortic valvular vegetation. MITRAL VALVE The mitral valve is thickened but opens well. Mitral regurgitation is mild to moderate. There is no mitral valve stenosis. There is no evidence of mitral valve prolapse. TRICUSPID VALVE The tricuspid valve leaflets are thickened , but open well. There is mild tricuspid regurgitation.RVSP-39 mmof hg. There is no tricuspid valve stenosis. There is no tricuspid valve prolapse or vegetation. PULMONIC VALVE The pulmonary valve is normal in structure. Trivial PI. There is no pulmonic valvular stenosis. GREAT VESSELS The aortic root is normal in size. The ascending aorta is normal in size. The pulmonary artery is normal. The IVC is normal in size and collapses >50% with inspiration. PERICARDIAL EFFUSION There is no pleural effusion. There is no pericardial effusion. <Conclusion> Normal chamber Sizesd. Ef-55-60% Mitral regurgitation is mild to moderate. There is mild tricuspid regurgitation.RVSP-39 mmof hg. Trivial PI. The IVC is normal in size and collapses >50% with inspiration. There is no pericardial effusion. No vegetation or thrombus noted.
--- NOTE | 2019-04-01 14:50 | RAD ---
Date of service: 04/01/2019 HISTORY: F/U pneumonia and compare COMPARISON: 03/30/2019. Single-view chest TECHNIQUE: Chest PA and lateral views FINDINGS: LUNGS: Persistent infiltrate left lower lobe. New right lower lobe infiltrate. PLEURA: Left, possible right pleural effusion inseparable from adjacent consolidative change. CARDIOVASCULAR: No aortic atherosclerotic calcification present. Normal cardiac size. No pulmonary vascular congestion. OSSEOUS STRUCTURES: No significant abnormalities. VISUALIZED UPPER ABDOMEN: Normal. OTHER FINDINGS: None. IMPRESSION: Persistent left lower lobe infiltrate. New right lower lobe infiltrate compared to the prior study.
--- NOTE | 2019-04-01 21:21 | PN ---
DATE: 04/01/2019 SUBJECTIVE: The patient was seen today. The patient presented in good mood. The patient reported the only concern is she was using bathroom very often because of the diuretics. The patient denied that she is feeling hopeless or helpless. The patient denied hearing voices or seeing things. The patient is compliant with medications. No agitation or aggression. OBJECTIVE: VITAL SIGNS: Stable. MENTAL STATUS EXAMINATION: The patient presented to be alert and oriented, pleasant, cooperative, and socially appropriate. The patient described her mood as okay. Affect was more reactive, mood congruent. Thought process was coherent and goal directed. Thought content, the patient denied visual, auditory, or tactile hallucinations. Denied paranoid ideation. The patient denied thoughts of harming herself or others. Denied intent or plan. Insight and judgment seems to be fair. Impulses are well controlled. MEDICATIONS: Reviewed. LABORATORY DATA: Reviewed. Microbiology reviewed. The patient still has leukocytosis. IMPRESSION: As per history of schizophrenia versus schizoaffective disorder. At present moment, the patient seems to be stable. PLAN: Continue current management. Continue current medication. Family should be involved and I discussed with the patient about plan to resume ECT. We will follow up and advise accordingly. Thank you very much. Carolyn Ross MD
[2019-04-02] MEDS: Sodium Chloride 0.9% 1,000 ML IV SCH ×3 (06:38→23:17)
[2019-04-02] MEDS: Cefepime 1gm in NS 100ml 1 GM/100 ML BAG IVPB SCH (06:41)
[2019-04-02] MEDS: Levothyroxine 100 MCG TAB PO SCH (06:41)
[2019-04-02] MEDS: Pantoprazole 40 mg EC Tab PO SCH (06:42)
--- NOTE | 2019-04-02 07:02 | CP.PCM.PN ---
Subjective - Date & Time of Evaluation Date of Evaluation: 04/02/19 Time of Evaluation: 06:23 - Subjective Subjective: Awake, alert. no distress Reason for consultation and follow up: Cardiac evaluation of hypotension, sepsis, admitted for pneumonia, history of schizoaffective disorder hypothyroidism, and breast cancer Seen and examined by me and Dr. Lloyd Objective - Vital Signs/Intake and Output Vital Signs (last 24 hours): Temp Pulse Resp BP Pulse Ox 98.0 F 86 20 108/72 97 04/02/19 06:00 04/02/19 06:00 04/02/19 06:00 04/02/19 06:00 04/02/19 06:00 Intake and Output: 04/02/19 04/02/19 06:59 18:59 Intake Total 3616 Output Total 8150 Balance -4534 - Medications Medications: Current Medications Acetaminophen (Tylenol 325mg Tab) 650 mg PO Q6H PRN PRN Reason: Fever >100.4 F Last Admin: 03/31/19 06:51 Dose: 650 mg Acetylcysteine (Acetylcysteine 20%) 4 ml IH BIDRESP [facility] Last Admin: 04/01/19 20:13 Dose: 4 ml Arformoterol Tartrate (Brovana) 15 mcg IH [id number] DAT Last Admin: 04/01/19 20:12 Dose: 15 mcg Aspirin (Ecotrin) 81 mg PO DAILY [facility] Last Admin: 04/01/19 11:09 Dose: 81 mg Benzocaine/Menthol (Cepacol Sore Throat) 1 devyn MT Q2H PRN PRN Reason: Sore Throat Last Admin: 03/30/19 18:02 Dose: 1 devyn Benztropine Mesylate (Cogentin) 0.5 mg PO Q8 [facility] Last Admin: 04/02/19 06:41 Dose: 0.5 mg Budesonide (Pulmicort Respules) 0.5 mg IH [id number] [facility] Last Admin: 04/01/19 20:12 Dose: 0.5 mg Calcium Carbonate (Caltrate) 600 mg PO DAILY [facility] Last Admin: 04/01/19 11:29 Dose: 600 mg Docusate Sodium (Colace) 100 mg PO DAILY [facility] Last Admin: 04/01/19 11:09 Dose: 100 mg Doxycycline Hyclate (Doryx) 100 mg PO Q12 [facility]; Protocol Stop: 04/07/19 22:01 Last Admin: 04/01/19 21:48 Dose: 100 mg Enoxaparin Sodium (Lovenox) 40 mg SC DAILY [facility]; Protocol Last Admin: 04/01/19 11:11 Dose: 40 mg Ergocalciferol (Drisdol 50,000 Intl Units Cap) 1 cap PO Q7D [facility] Fluoxetine HCl (Prozac) 30 mg PO DAILY [facility] Last Admin: 04/01/19 11:14 Dose: 30 mg Folic Acid (Folic Acid) 1 mg PO DAILY [facility] Last Admin: 04/01/19 11:10 Dose: 1 mg Home Med (Home Med) 1 unit PO DAILY [facility] Last Admin: 04/01/19 11:10 Dose: Not Given Sodium Chloride (Sodium Chloride 0.9%) 1,000 mls @ 125 mls/hr IV .Q8H [facility] Last Admin: 04/02/19 06:38 Dose: 125 mls/hr Cefepime HCl (Maxipime 1gm) 1 gm in 100 mls @ 100 mls/hr IVPB Q8 [facility]; Protocol Stop: 04/07/19 22:01 Last Admin: 04/02/19 06:41 Dose: 100 mls/hr Daptomycin 440 mg/ Sodium (Chloride) 100 mls @ 200 mls/hr IV Q24H [facility]; Protocol Stop: 04/09/19 11:01 Last Admin: 04/01/19 11:38 Dose: 200 mls/hr Dopamine HCl/Dextrose (Dopamine 400mg/250ml D5w) 400 mg in 250 mls @ 13.608 mls/hr IV .[id number] PRN PRN Reason: FOR SBP <100 Last Admin: 04/01/19 21:49 Dose: 13.608 mls/hr Levalbuterol HCl (Xopenex) 1.25 mg IH [id number] PRN PRN Reason: Shortness of Breath Levothyroxine Sodium (Synthroid) 100 mcg PO 0600 [facility] Last Admin: 04/02/19 06:41 Dose: 100 mcg Magnesium Oxide (Mag-Ox) 400 mg PO BID [facility] Last Admin: 04/01/19 17:27 Dose: 400 mg Multivitamins (Thera Tab) 1 tab PO DAILY [facility] Last Admin: 04/01/19 11:12 Dose: 1 tab Pantoprazole Sodium (Protonix Ec Tab) 40 mg PO 0600 [facility] Last Admin: 04/02/19 06:42 Dose: 40 mg Polysaccharide Iron Complex (Ferrex-150) 150 mg PO DAILY [facility] Last Admin: 04/01/19 11:09 Dose: 150 mg Potassium Chloride (Klor-Con 10) 10 meq PO BRK [facility] Last Admin: 04/01/19 08:33 Dose: 10 meq Potassium Phos/Sodium Phos (Neutra-Phos) 1 pkt PO BID [facility] Stop: 04/02/19 23:59 Last Admin: 04/01/19 17:27 Dose: 1 pkt Risperidone (Risperdal Tab) 2 mg PO Q8 [facility]; Protocol Last Admin: 04/02/19 06:41 Dose: 2 mg Spironolactone (Aldactone) 50 mg PO DAILY [facility] Last Admin: 04/01/19 11:08 Dose: 50 mg Zolpidem Tartrate (Ambien) 5 mg PO HS PRN; Protocol PRN Reason: Insomnia Last Admin: 04/01/19 21:49 Dose: 5 mg - Labs Labs: 03/31/19 07:15 04/01/19 06:47 PT 13.9 SECONDS (9.4-12.5) H 03/30/19 09:20 INR 1.23 03/30/19 09:20 APTT 27.0 Seconds (26.9-38.3) 03/30/19 09:20 - Constitutional Appears: Non-toxic, No Acute Distress - Head Exam Head Exam: NORMAL INSPECTION, NORMOCEPHALIC - Eye Exam Eye Exam: Normal appearance Pupil Exam: NORMAL ACCOMODATION - ENT Exam ENT Exam: Mucous Membranes Moist, Normal Exam - Respiratory Exam Respiratory Exam: Decreased Breath Sounds, Clear to Ausculation Bilateral, NORMAL BREATHING PATTERN - Cardiovascular Exam Cardiovascular Exam: REGULAR RHYTHM, +S1, +S2 - GI/Abdominal Exam GI & Abdominal Exam: Soft, Normal Bowel Sounds - Extremities Exam Extremities Exam: Full ROM, Normal Capillary Refill - Neurological Exam Neurological Exam: Alert, Awake - Psychiatric Exam Psychiatric exam: Normal Affect, Normal Mood - Skin Skin Exam: Dry, Normal Color, Warm Assessment and Plan - Assessment and Plan (Free Text) Assessment: A 49 year old female who came in to the ER due to fever and dizziness. History of schizoaffective disorder ,depression,GERD, rheumatoid arthritis, hypothyroidism, and breast cancer (s/p right mastectomy and reconstruction) 20 years ago with chemo. Consult was called for hypotension. Sepsis due to pneumonia. Dopamine started. CT scan showing a left lower lung consolidation consistent with pneumonia. ID on consult. On IV antibiotics. Echo done and showed LVEF 55-60%, mild to moderate mitral regurgitation, mild tricuspid regurgitation, Trivial PI, RVSP 39mmHg.No evidence of vegetation or thrombus. Pulmonary consult. GI on consult for dysphagia. swallowing evaluation done and recommended regular to soft with thin liquids. Repeat chest X ray showed persistent left lower lobe infiltrate, new right lower lobe infiltrate. ID on consult. On IV antibiotics.IV Lasix and diuresed about 8 liters. Will discontinue dopamine. Plan: No distress, Afebrile Heart rate stable Blood pressure stable Discontinue Dopamine drip Continue current management Continue current medications ID on consult Continue IV antibiotics per ID Will follow up Plan and treatment discussed with Dr. Lloyd
[2019-04-02] MEDS: Arformoterol 15 mcg/2 ml Inh Sol IH SCH ×2 (07:09→20:35)
[2019-04-02] MEDS: Budesonide 0.5 mg/2 ml Inhal Susp UD IH SCH ×2 (07:10→20:35)
[2019-04-02] MEDS: Acetylcysteine 20% Inhal Soln (4ml) IH SCH ×2 (07:12→20:35)
[2019-04-02 08:33] LABS: HEMOGLOBIN 9.1 g/dL (12.0-16.0); MEAN CELL VOLUME 79.3 fl (80.0-105.0); MEAN CORPUSCULAR HEMOGLOBIN 25.4 pg (25.0-35.0); RBC 3.58 10^6/uL (3.5-6.1); RED CELL DISTRIBUTION WIDTH 18.4 % (11.5-14.5); WHITE BLOOD COUNT 6.9 10^3/uL (4.5-11.0)
[2019-04-02 09:16] LABS: BLOOD UREA NITROGEN 8 mg/dL (7-21); CALCIUM 8.4 mg/dL (8.4-10.5); GFR NON-AFRICAN AMERICAN > 60
[2019-04-02] MEDS: VITAMIN A 8000 UNIT PO SCH (10:00)
[2019-04-02] MEDS: Potassium & Sodium Phosphate PO SCH ×2 (10:08→17:31)
[2019-04-02] MEDS: Iron Complex Polysacch 150mg Cap PO SCH (10:09)
[2019-04-02] MEDS: Multivitamin Therapeutic Tab PO SCH (10:09)
[2019-04-02] MEDS: Magnesium Oxide 400 mg Tab UD PO SCH ×2 (10:09→17:31)
[2019-04-02] MEDS: Potassium Chloride 10 mEq ER Tab PO SCH (10:09)
[2019-04-02] MEDS: Enoxaparin 40 mg Syringe SC SCH (10:10)
[2019-04-02] MEDS: cefTRIAXone 1 gm 1 GM/100 ML BAG IVPB SCH ×3 (10:53→15:13)
--- NOTE | 2019-04-02 11:54 | CP.PCM.PN ---
<Radames Ojeda - Last Filed: 04/02/19 11:51> Subjective - Date & Time of Evaluation Date of Evaluation: 04/02/19 Time of Evaluation: 09:00 - Subjective Subjective: PGY6 GI Fellow Progress Note Patient seen and examined bedside this morning. Feeling better each day. Still with some left sided discomfort. Does not like hospital food and thus is not eating much. 12 system ROS performed and negative except where stated Objective - Vital Signs/Intake and Output Vital Signs (last 24 hours): Temp Pulse Resp BP Pulse Ox 98.0 F 68 20 108/72 97 04/02/19 06:00 04/02/19 10:00 04/02/19 06:00 04/02/19 06:00 04/02/19 06:00 Intake and Output: 04/02/19 04/02/19 06:59 18:59 Intake Total 5229 Output Total 8150 Balance -2921 - Medications Medications: Current Medications Acetaminophen (Tylenol 325mg Tab) 650 mg PO Q6H PRN PRN Reason: Fever >100.4 F Last Admin: 03/31/19 06:51 Dose: 650 mg Acetylcysteine (Acetylcysteine 20%) 4 ml IH BIDRESP [facility], [facility] Last Admin: 04/02/19 07:12 Dose: 4 ml Arformoterol Tartrate (Brovana) 15 mcg IH [id number] [facility], [facility] Last Admin: 04/02/19 07:09 Dose: 15 mcg Aspirin (Ecotrin) 81 mg PO DAILY [facility] Last Admin: 04/02/19 10:09 Dose: 81 mg Benzocaine/Menthol (Cepacol Sore Throat) 1 devyn MT Q2H PRN PRN Reason: Sore Throat Last Admin: 03/30/19 18:02 Dose: 1 devyn Benztropine Mesylate (Cogentin) 0.5 mg PO Q8 [facility], [facility] Last Admin: 04/02/19 06:41 Dose: 0.5 mg Budesonide (Pulmicort Respules) 0.5 mg IH [id number] [facility], [facility] Last Admin: 04/02/19 07:10 Dose: 0.5 mg Calcium Carbonate (Caltrate) 600 mg PO DAILY [facility] Last Admin: 04/02/19 10:08 Dose: 600 mg Docusate Sodium (Colace) 100 mg PO DAILY [facility] Last Admin: 04/02/19 10:09 Dose: 100 mg Enoxaparin Sodium (Lovenox) 40 mg SC DAILY [facility], [facility]; Protocol Last Admin: 04/02/19 10:10 Dose: 40 mg Ergocalciferol (Drisdol 50,000 Intl Units Cap) 1 cap PO Q7D [facility] Fluoxetine HCl (Prozac) 30 mg PO DAILY [facility] Last Admin: 04/02/19 10:08 Dose: 30 mg Folic Acid (Folic Acid) 1 mg PO DAILY [facility] Last Admin: 04/02/19 10:08 Dose: 1 mg Home Med (Home Med) 1 unit PO DAILY [facility] Last Admin: 04/02/19 10:00 Dose: Not Given Sodium Chloride (Sodium Chloride 0.9%) 1,000 mls @ 125 mls/hr IV .Q8H [facility], [facility] Last Admin: 04/02/19 06:38 Dose: 125 mls/hr Ceftriaxone Sodium (Rocephin 1 Gram Ivpb) 1 gm in 100 mls @ 100 mls/hr IVPB DAILY [facility], [facility]; Protocol Stop: 04/07/19 10:35 Last Admin: 04/02/19 11:12 Dose: 100 mls/hr Levalbuterol HCl (Xopenex) 1.25 mg IH [id number] PRN PRN Reason: Shortness of Breath Levothyroxine Sodium (Synthroid) 100 mcg PO 0600 [facility] Last Admin: 04/02/19 06:41 Dose: 100 mcg Magnesium Oxide (Mag-Ox) 400 mg PO BID [facility] Last Admin: 04/02/19 10:09 Dose: 400 mg Multivitamins (Thera Tab) 1 tab PO DAILY [facility] Last Admin: 04/02/19 10:09 Dose: 1 tab Pantoprazole Sodium (Protonix Ec Tab) 40 mg PO 0600 [facility] Last Admin: 04/02/19 06:42 Dose: 40 mg Polysaccharide Iron Complex (Ferrex-150) 150 mg PO DAILY [facility] Last Admin: 04/02/19 10:09 Dose: 150 mg Potassium Chloride (Klor-Con 10) 10 meq PO BRK [facility] Last Admin: 04/02/19 10:09 Dose: 10 meq Potassium Phos/Sodium Phos (Neutra-Phos) 1 pkt PO BID [facility] Stop: 04/02/19 23:59 Last Admin: 04/02/19 10:08 Dose: 1 pkt Risperidone (Risperdal Tab) 2 mg PO Q8 DAT; Protocol Last Admin: 04/02/19 06:41 Dose: 2 mg Spironolactone (Aldactone) 50 mg PO DAILY DAT Last Admin: 04/02/19 10:07 Dose: 50 mg Zolpidem Tartrate (Ambien) 5 mg PO HS PRN; Protocol PRN Reason: Insomnia Last Admin: 04/01/19 21:49 Dose: 5 mg - Labs Labs: 04/02/19 08:04 04/02/19 08:03 PT 13.9 SECONDS (9.4-12.5) H 03/30/19 09:20 INR 1.23 03/30/19 09:20 APTT 27.0 Seconds (26.9-38.3) 03/30/19 09:20 - Constitutional Appears: Non-toxic, No Acute Distress - Eye Exam Eye Exam: EOMI, PERRL - ENT Exam ENT Exam: Mucous Membranes Moist - Respiratory Exam Respiratory Exam: Rales. absent: Clear to Ausculation Bilateral, Rhonchi, Wheezes - Cardiovascular Exam Cardiovascular Exam: RRR, +S1, +S2 - GI/Abdominal Exam GI & Abdominal Exam: Soft, Normal Bowel Sounds. absent: Distended, Firm, Gu arding, Rigid, Tenderness, Organomegaly - Extremities Exam Extremities Exam: Normal Inspection. absent: Pedal Edema - Neurological Exam Neurological Exam: Alert, Awake, Oriented x3 - Psychiatric Exam Psychiatric exam: Flat Affect - Skin Skin Exam: Dry, Warm Assessment and Plan - Assessment and Plan (Free Text) Assessment: Patient is a 49yo female with PMHx significant for bipolar disorder, schizoaffective disorder s/p ECT, HTN, right breast cancer s/p chemoXRT and right mastectomy, rheumatoid arthritis on adalimumab/methotrexate, and hypothyroidism who presented to the ED with fever and dizziness -Left lung pneumonia -Question of dysphagia contributing to above Plan: -CONTINUITY TESTER evaluation noted with recommendation for regular/soft diet with thin liquids -Family has been bringing foods from home which do not meet these criteria despite extensive education and explanation that these foods may contribute further to patient decompensation -Recommend outpatient follow up for motility testing -No plan for endoscopic evaluation at this time <Tan Bob V - Last Filed: 04/02/19 18:49> Objective - Vital Signs/Intake and Output Vital Signs (last 24 hours): Temp Pulse Resp BP Pulse Ox 98.7 F 81 18 116/74 97 04/02/19 16:58 04/02/19 17:48 04/02/19 16:58 04/02/19 16:58 04/02/19 06:00 Intake and Output: 04/02/19 04/02/19 06:59 18:59 Intake Total 5229 2330 Output Total 8150 Balance -2921 2330 - Medications Medications: Current Medications Acetaminophen (Tylenol 325mg Tab) 650 mg PO Q6H PRN PRN Reason: Fever >100.4 F Last Admin: 03/31/19 06:51 Dose: 650 mg Acetylcysteine (Acetylcysteine 20%) 4 ml IH BIDRESP [facility] Last Admin: 04/02/19 07:12 Dose: 4 ml Al Hydrox/Mg Hydrox/Simethicone (Maalox Plus 30 Ml) 30 ml PO Q6 PRN PRN Reason: FOR EPIGASTRIC DISCOMFORT Arformoterol Tartrate (Brovana) 15 mcg IH [id number] [facility] Last Admin: 04/02/19 07:09 Dose: 15 mcg Aspirin (Ecotrin) 81 mg PO DAILY [facility] Last Admin: 04/02/19 10:09 Dose: 81 mg Benzocaine/Menthol (Cepacol Sore Throat) 1 devyn MT Q2H PRN PRN Reason: Sore Throat Last Admin: 04/02/19 17:37 Dose: 1 devyn Benztropine Mesylate (Cogentin) 0.5 mg PO Q8 [facility] Last Admin: 04/02/19 15:13 Dose: 0.5 mg Budesonide (Pulmicort Respules) 0.5 mg IH [id number] [facility] Last Admin: 04/02/19 07:10 Dose: 0.5 mg Calcium Carbonate (Caltrate) 600 mg PO DAILY [facility] Last Admin: 04/02/19 10:08 Dose: 600 mg Docusate Sodium (Colace) 100 mg PO DAILY [facility] Last Admin: 04/02/19 10:09 Dose: 100 mg Enoxaparin Sodium (Lovenox) 40 mg SC DAILY [facility]; Protocol Last Admin: 04/02/19 10:10 Dose: 40 mg Ergocalciferol (Drisdol 50,000 Intl Units Cap) 1 cap PO Q7D [facility] Fluconazole (Diflucan) 200 mg PO DAILY [facility]; Protocol Last Admin: 04/02/19 15:13 Dose: 200 mg Fluoxetine HCl (Prozac) 30 mg PO DAILY [facility] Last Admin: 04/02/19 10:08 Dose: 30 mg Folic Acid (Folic Acid) 1 mg PO DAILY [facility] Last Admin: 04/02/19 10:08 Dose: 1 mg Home Med (Home Med) 1 unit PO DAILY [facility] Last Admin: 04/02/19 10:00 Dose: Not Given Sodium Chloride (Sodium Chloride 0.9%) 1,000 mls @ 125 mls/hr IV .Q8H [facility] Last Admin: 04/02/19 15:03 Dose: Not Given Ceftriaxone Sodium (Rocephin 1 Gram Ivpb) 1 gm in 100 mls @ 100 mls/hr IVPB DAILY [facility]; Protocol Stop: 04/07/19 10:35 Last Admin: 04/02/19 15:13 Dose: 100 mls/hr Levalbuterol HCl (Xopenex) 1.25 mg IH [id number] PRN PRN Reason: Shortness of Breath Last Admin: 04/02/19 12:57 Dose: 1.25 mg Levothyroxine Sodium (Synthroid) 100 mcg PO 0600 [facility] Last Admin: 04/02/19 06:41 Dose: 100 mcg Magnesium Oxide (Mag-Ox) 400 mg PO BID [facility] Last Admin: 04/02/19 17:31 Dose: 400 mg Multivitamins (Thera Tab) 1 tab PO DAILY [facility] Last Admin: 04/02/19 10:09 Dose: 1 tab Pantoprazole Sodium (Protonix Ec Tab) 40 mg PO 0600 [facility] Last Admin: 04/02/19 06:42 Dose: 40 mg Polysaccharide Iron Complex (Ferrex-150) 150 mg PO DAILY [facility] Last Admin: 04/02/19 10:09 Dose: 150 mg Potassium Chloride (Klor-Con 10) 10 meq PO BRK [facility] Last Admin: 04/02/19 10:09 Dose: 10 meq Potassium Phos/Sodium Phos (Neutra-Phos) 1 pkt PO BID [facility]1983 Stop: 04/02/19 23:59 Last Admin: 04/02/19 17:31 Dose: 1 pkt Risperidone (Risperdal Tab) 2 mg PO Q8 [facility]; Protocol Last Admin: 04/02/19 15:13 Dose: 2 mg Spironolactone (Aldactone) 50 mg PO DAILY DAT Last Admin: 04/02/19 10:07 Dose: 50 mg Zolpidem Tartrate (Ambien) 5 mg PO HS PRN; Protocol PRN Reason: Insomnia Last Admin: 04/01/19 21:49 Dose: 5 mg - Labs Labs: 04/02/19 08:04 04/02/19 08:03 PT 13.9 SECONDS (9.4-12.5) H 03/30/19 09:20 INR 1.23 03/30/19 09:20 APTT 27.0 Seconds (26.9-38.3) 03/30/19 09:20 Attending/Attestation - Attestation I have personally seen and examined this patient.: Yes I have fully participated in the care of the patient.: Yes I have reviewed all pertinent clinical information, including history, physical exam and plan: Yes Notes (Text): This is an addendum to the GI progress note dictated by the fellow. The patient was seen and evaluated along with the fellow. Extensive discussion were held with the patient's family regarding the type of the food the patient can tolerate. Patient may benefit from outpatient motility studies if he remains symptomatic. Thank you Dr. Ca for allowing us to participate in the care of the patient 04/02/19 18:48
--- NOTE | 2019-04-02 11:59 | PN ---
DATE: 04/02/2019 PULMONARY PROGRESS NOTE REFERRING PHYSICIAN: Igor Ca MD. SUBJECTIVE: The patient is seen sitting up in bed. No acute distress. Nursing staff reports that this morning the patient noted pulling out her IV access. The patient is afebrile this morning. Reports feeling well improvement in cough, shortness of breath also states that pleuritic pain on her left side is better. No headache, rhinitis, chest pain, abdominal pain, nausea, vomiting, diarrhea, leg pain or leg swelling reported. PHYSICAL EXAMINATION: GENERAL: No acute distress. VITAL SIGNS: Blood pressure 108/72, pulse 86, temperature 98 and oxygen saturation 97% on room air. HEENT: Moist mucous membranes. Crowded airway. NECK: Supple. No JVD. LUNGS: Decreased breath sounds at the right base. Few scattered rhonchi. CARDIOVASCULAR: S1 and S2. ABDOMEN: Soft and nontender. No distension. No organomegaly. No epigastric tenderness. EXTREMITIES: No bilateral lower extremity edema. NEUROLOGIC: Awake, alert and verbal. Following commands. MEDICATIONS: Reviewed. Tylenol 650 mg every 6 hours p.r.n. for fever Mucomyst 4 mL inhalation twice a day, Brovana 15 mcg inhalation every 12 hours, aspirin 81 mg daily, Cepacol throat lozenges every 2 hours p.r.n., Cogentin 0.5 mg every 8 hours, Pulmicort 0.5 mg inhalation every 12 hours, calcium carbonate 600 mg daily, Rocephin 1 g daily, Colace 100 mg daily, Lovenox 40 mg subcutaneously daily, ergocalciferol 50,000 units every 7 days, Prozac 30 mg daily, folic acid 1 mg daily, Xopenex 1.25 mg inhalation every 6 hours p.r.n., Synthroid 100 mcg daily, magnesium oxide 400 mg twice a day, multivitamin 1 tab daily, Protonix 40 mg daily, Ferrex 150 mg daily, potassium chloride 10 mEq at breakfast, Neutra-Phos one packet twice a day, Risperdal 2 mg every 8 hours, sodium chloride 0.9% at 1000 mL at 125 mL per hour, spironolactone 50 mg daily and Ambien 5 mg at bedtime p.r.n. LABORATORY DATA: Reviewed. WBC 6.9, RBC 3.58, hemoglobin 9.1, hematocrit 28.4 and platelets 392. Sodium 144, potassium 4.5, chloride 113, carbon dioxide 23, anion gap 13, BUN 8, creatinine 0.5, GFR greater than 60, random glucose 123, calcium 8.4, TSH 0.56. Blood cultures preliminary no growth after 24 hours. Chest x-ray shows persistent left lower lobe infiltrates, new right lower lobe infiltrates. IMPRESSION AND PLAN: Bacteremia with left lower lobe pneumonia with new right lower lobe infiltrate seen on chest x-ray, chronic lung disease, schizoaffective disorder, depression. Continue psychiatry followup. Pulmonary point of view, continue inhaled bronchodilators, head of bed elevated at 45 degrees, sleep apnea precautions, we do suspect sleep apnea syndrome in this patient. The patient to have sleep study has outpatient. Continue antibiotics per Infectious Disease, gastric prophylaxis, deep venous thrombosis prophylaxis, cortisone level pending. The patient was seen by speech therapy yesterday where notes states that the patient has mild oropharyngeal dysphagia with low to moderate risk for aspiration. The patient is to continue regular/soft diet with thin liquids. Continue aspiration precautions. The patient to eat with head of bed elevated and to remain with head of bed elevated for an hour or so after eating. Will order CT scan of chest without contrast to follow up on new infiltrate. The patient was seen and examined with Dr. Alves. Discussed assessment and plan as described above. The patient was seen and examined by Ana Steven, nurse practitioner. Discussed assessment and plan as described above. Thank you for this consult and we will follow with you. Ana Steven APN Jasmine Alves MD MARIAN
--- NOTE | 2019-04-02 13:23 | PN ---
DATE: 04/02/2019 SUBJECTIVE: The patient is in bed in no acute distress, nontoxic. She is doing much better. PHYSICAL EXAMINATION: VITAL SIGNS: On exam, temperature is 98, blood pressure is 108/70, respiratory rate of 20, heart rate of 80. HEENT: Unremarkable. NECK: Supple. HEART: Normal S1, S2. LUNGS: Have decreased breath sounds. ABDOMEN: Soft, nontender. No organomegaly. No rebound. LABORATORY DATA: Reveals the patient's blood cultures, group A strep bacteremia and repeat blood cultures are no growth. Nares are negative. Review of orders reveals the patient to have daptomycin which will be discontinued and cefepime which we will also discontinue, and doxycycline which we will also discontinue. Laboratory examination reveals a white count of 6.9, hemoglobin of 9. Chemistries reveals a BUN of 8, creatinine of 0.5. Urinalysis is noted. Serology is negative for urine Legionella antigen and review of orders reveals the antibiotics were reviewed. Reviewed chest x-ray from yesterday, left lower lobe pneumonia. Echocardiogram, no vegetations or thrombus is noted in the echo. ASSESSMENT AND PLAN: This is a 49-year-old female with past medical history significant for obesity, BMI of 31, admitted with severe sepsis with group A streptococcus bacteremia with left lower lobe healthcare-associated pneumonia in a patient who has history of hypothyroidism, breast cancer, received chemotherapy, radiation, depression, right arm lymphedema, schizoaffective disorder. The patient has no intravascular devices, may be able to switch to p.o. Levaquin with a negative echo and negative repeat blood cultures within 24 hours. The patient's QTc of 464, may be able to switch to p.o. Augmentin, upon discharge 875 p.o. b.i.d. x10 days for group A streptococcus pneumonia, bacteremia, we will switch to p.o. Augmentin. Currently used ceftriaxone. Scotty James MD
--- NOTE | 2019-04-02 14:15 | CT ---
Date of service: 04/02/2019 PROCEDURE: CT Chest without contrast HISTORY: New infiltrate. COMPARISON: Correlation made with chest radiograph dated [address] scan abdomen pelvis 03/30/2019 which imaged both lung bases. Comparison also made with CT chest performed as part of a chest, abdomen pelvis exam dated 03/02/2019 TECHNIQUE: Contiguous axial images were obtained through the chest without intravenous contrast enhancement. Sagittal and coronal reconstructions were performed. Radiation dose: Total exam DLP = 248.79 mGy-cm. This CT exam was performed using one or more of the following dose reduction techniques: Automated exposure control, adjustment of the mA and/or kV according to patient size, and/or use of iterative reconstruction technique. FINDINGS: LUNGS: Redemonstrated is a wedge-shaped area dense consolidation in the left lung base with what appears represent additional areas of atelectasis peripherally about this area of consolidation. There is also a [id number] left-sided effusion increased from prior study.. Small right-sided effusion.. Minor right basilar atelectasis and small right-sided effusion. Linear and irregular linear/curvilinear atelectatic changes present both lung bases including the middle lobe and lingular regions. There is a rounded/elliptical shaped somewhat translucent opacity seen in the right lateral upper lobe bordering the pleural surface that may represent round atelectasis and/or developing localized pneumonitis and or infiltrate.. Vague ground-glass opacities seen in the upper and lower lobes MEDIASTINUM: Heart is enlarged which appears to result in slight splaying of the alexandru... There appears to be a small pericardial effusion. There is also slight compressive effects on the. Ascending thoracic aorta measures approximately 2.9 cm and descending thoracic aorta measures approximately 2.1 cm. Pulmonary trunk measures approximately 2.4 cm. No aortic atherosclerotic calcification. Trachea midline and patent with no large central endoluminal lesions.. Slight splaying of the alexandru likely due to atrial enlargement. Several small nonspecific mediastinal lymph nodes are present. Small hiatal hernia. PLEURA: As above. No pneumothorax. BONES: Mild multilevel degenerative spondylosis of the thoracic spine. There are no acute compression fractures. UPPER ABDOMEN: Spleen appears upper limits of normal in size. OTHER FINDINGS: None. IMPRESSION: Redemonstrated is a wedge-shaped area dense consolidation in the left lung base with what appears represent additional areas of atelectasis peripherally about this area of consolidation. There is also a [id number] left-sided effusion increased from prior study.. Small right-sided effusion.. Minor right basilar atelectasis and small right-sided effusion. Linear and the irregular linear/curvilinear atelectatic changes present both lung bases including the middle lobe and lingular regions. There is a rounded/elliptical shaped somewhat translucent opacity seen in the right lateral upper lobe bordering the pleural surface that may represent round atelectasis and/or developing localized pneumonitis and or infiltrate.. Vague ground-glass opacities seen in the upper and lower lobes
--- NOTE | 2019-04-02 14:17 | PN ---
DATE: 04/01/2019 SUBJECTIVE: The patient feels better. She is comfortable, no distress. PHYSICAL EXAMINATION: VITAL SIGNS: Afebrile. Temperature 97.8, heart rate 89, blood pressure 115/74, respirations 20, sat 95%. HEAD AND NECK: Normal. No JVD. No thyromegaly. CHEST: Clear. Few rales of the base on the left side. There is diminished breath sounds on the right. CARDIAC: First sound and second sound normal. No murmur, rub, or gallop. ABDOMEN: Soft, nontender. EXTREMITIES: No edema. NEUROLOGIC: Normal. IMAGING STUDIES: Chest x-ray shows persistent left lower lobe infiltrates and new right lower lobe infiltrates. LABORATORY DATA: Shows white count today 18.5, hemoglobin 9.2, hematocrit 27.9, platelets 320. Sodium 139, potassium 2.7, chloride 107, bicarb 24, BUN 8, creatinine 0.7. ASSESSMENT AND PLAN: 1. Community-acquired pneumonia in immunocompromised patients. Continue current intravenous antibiotics. The patient is getting Rocephin 1 g and should be getting daptomycin initially and Merrem and Zithromax by the ID consult. Change the antibiotics for now. We will continue that. Continue inhaled bronchodilator. :Possibility of aspiration has been and swallowing evaluation has been done to educate to pureed diet. Perhaps ENT consultation also has been recommended, we will get back. We will continue medications also p.o. We will follow up on that. 2. History of rheumatoid arthritis and breast cancer. At this time, we will continue current therapy. 3. Hypothyroidism, it is chronic. Continue levothyroxine 100 mcg daily. 4. The patient has also history of low potassium. We will continue Aldactone and potassium has been advised and magnesium intravenous. Continue current therapy. 5. Severe depression, history of ECT done, intractable depression. Continue Prozac 30 mg p.o. daily. Also the patient is getting Cogentin. We will follow up with the psychiatrist on that. 6. Continue gastrointestinal and deep venous thrombosis prophylaxis. Follow up clinically. The patient is otherwise stable. Igor Ca MD [facility] # [id number]
[2019-04-02] MEDS: Benzocaine/Menthol (Cepacol) Lozenge MT PRN (17:37)
--- NOTE | 2019-04-02 19:52 | PN ---
DATE: 04/02/2019 SUBJECTIVE: The patient was seen today. The patient presented better. The patient was smiling to this data analyst report writer. The patient reported that she slept better. Mood is improving. The patient denied any psychotic symptoms. As per nursing report, the patient is compliant with the treatment. No agitation and no aggression. The patient is slowly improving. The patient gave permission to talk to her , Bay. This data analyst report writer had a prolonged conversation about importance to continue the ECT. The patient's said that they were planning to schedule ECT and they will be more than happy to continue ECT. Bay also reported after ECT treatment the patient was able to find a job and keep her job. The patient does not exhibit any aggressive or agitated behavior and for the past couple of months the patient was doing better. The patient and her were appreciative and this data analyst report writer contacted the ECT program scheduling services and if the patient will be cleared from the medical standpoint, the patient will be coming on next for ECT treatment. OBJECTIVE: Vital signs reviewed. Medications reviewed and confirmed. MENTAL STATUS EXAMINATION: The patient presented to be alert and oriented, pleasant, cooperative. The patient described her mood as okay, thanked God. Affect was mood reactive and mood congruent. Thought process; more coherent and goal-directed. Thought content; the patient denied hearing voices, denied seeing things, denied paranoid ideation. The patient had some cognitive and chronic limitations, which related to chronic mental illness, but so far, the patient presented fairly well. Insight and judgment seems to be improving. Impulses are well controlled. IMPRESSION: Per history, schizophrenia versus schizoaffective disorder. PLAN: We will continue medications and current management. The patient was advised to come for ECT maintenance. The patient and her who is next of kin and power of compliance attorney, agreed with that plan. Meanwhile, there is no acute issues going on and Dr. Olmedo will follow up on this patient over the weekend. The next followup is Saturday. Thank you very much for letting me participate in the care of your patient. Carolyn Ross MD [facility] # [id number]
[2019-04-02] MEDS: Alum-Mag Hydrox-Simethicone Susp (30 mL) PO PRN (21:23)
--- NOTE | 2019-04-02 21:49 | CP.PCM.CON ---
History of Present Illness - History of Present Illness History of Present Illness: This is a 49 yo female with history of schizoaffective disorder(s/p ECT ), hypothyroidism , and breast cancer ( s/p right mastectomy / reconstruction / chemoradiation ) who presented to ER on 03/30 c/o fever / chills / dizziness / headache / cough . Patient was noted to have left lobe pneumonia - admitted for evaluation / treatment . ENT requested for patient c/o dysphagia. states this is a chronic problem and work up in the past did not show any significant pathology . Patient was recommended to chew food properly . Patient denies odynophagia / dysphonia Feeling better since admission Past Patient History - Infectious Disease Hx of Infectious Diseases: None - Tetanus Immunizations Tetanus Immunization: Unknown - Past Medical History & Family History Past Medical History?: Yes - Past Social History Smoking Status: Never Smoked - CARDIAC Hx Cardiac Disorders: Yes (CAD) Hx Pacemaker: No Hx Peripheral Edema: Yes - PULMONARY Hx Respiratory Disorders: Yes (PLEURAL EFFUSION) Hx Pneumonia: Yes - NEUROLOGICAL Hx Neurological Disorder: No - HEENT Hx HEENT Problems: No - RENAL Hx Chronic Kidney Disease: No - ENDOCRINE/METABOLIC Hx Endocrine Disorders: Yes Hx Hyperthyroidism: Yes (GOITER) - HEMATOLOGICAL/ONCOLOGICAL Hx Blood Disorders: Yes Hx Cancer: Yes (breast-R BREAT MASTECTOMY-RECONSTRUCTION.) Hx Chemotherapy: Yes (WITH RADIATION.) - INTEGUMENTARY Hx Dermatological Problems: Yes Other/Comment: RIGHT ARM LYMPHEDEMA. RIGHT BREAST H/O MASTECTOMY WITH RECONSTRUCTION. SKIN GRAFT FROM THIGH TO RIGHT BREAST. DARKENED BROWN SKIN DISCOLORATION TO PERINEAL AREA. - MUSCULOSKELETAL/RHEUMATOLOGICAL Hx Musculoskeletal Disorders: Yes Hx Falls: Yes - GASTROINTESTINAL Hx Gastrointestinal Disorders: Yes (CONSTIPATION,DYSPHAGIA H/O) Hx Gastroesophageal Reflux: Yes HX Swallowing Problems: Yes (H/O) - GENITOURINARY/GYNECOLOGICAL Hx Genitourinary Disorders: Yes (C/S X 1) Other/Comment: RIGHT BREAST MASTECTOMY WITH RECONSTRUCTION. - PSYCHIATRIC Hx Psychophysiologic Disorder: Yes Hx Depression: Yes Hx Emotional Abuse: Yes Hx Physical Abuse: No Hx Substance Use: No - SURGICAL HISTORY Hx Surgeries: Yes (RIGHT BREAST MASTECTOMY,SKIN GRAFT TAKEN FR THIGH FOR R BREAST.C/S X 1) - ANESTHESIA Hx Anesthesia: Yes Hx Anesthesia Reactions: No Hx Malignant Hyperthermia: No Meds Allergies/Adverse Reactions: Allergies Allergy/AdvReac Type Severity Reaction Status Date / Time vancomycin AdvReac Intermediate ITCHING Verified 03/30/19 13:01 - Medications Medications: Current Medications Acetaminophen (Tylenol 325mg Tab) 650 mg PO Q6H PRN PRN Reason: Fever >100.4 F Last Admin: 03/31/19 06:51 Dose: 650 mg Acetylcysteine (Acetylcysteine 20%) 4 ml IH BIDRESP [facility] Last Admin: 04/02/19 20:35 Dose: 4 ml Al Hydrox/Mg Hydrox/Simethicone (Maalox Plus 30 Ml) 30 ml PO Q6 PRN PRN Reason: FOR EPIGASTRIC DISCOMFORT Last Admin: 04/02/19 21:23 Dose: 30 ml Arformoterol Tartrate (Brovana) 15 mcg IH [id number] [facility] Last Admin: 04/02/19 20:35 Dose: 15 mcg Aspirin (Ecotrin) 81 mg PO DAILY [facility] Last Admin: 04/02/19 10:09 Dose: 81 mg Benzocaine/Menthol (Cepacol Sore Throat) 1 devyn MT Q2H PRN PRN Reason: Sore Throat Last Admin: 04/02/19 17:37 Dose: 1 devyn Benztropine Mesylate (Cogentin) 0.5 mg PO Q8 [facility] Last Admin: 04/02/19 21:23 Dose: 0.5 mg Budesonide (Pulmicort Respules) 0.5 mg IH [id number] [facility] Last Admin: 04/02/19 20:35 Dose: 0.5 mg Calcium Carbonate (Caltrate) 600 mg PO DAILY [facility] Last Admin: 04/02/19 10:08 Dose: 600 mg Docusate Sodium (Colace) 100 mg PO DAILY [facility] Last Admin: 04/02/19 10:09 Dose: 100 mg Enoxaparin Sodium (Lovenox) 40 mg SC DAILY [facility]; Protocol Last Admin: 04/02/19 10:10 Dose: 40 mg Ergocalciferol (Drisdol 50,000 Intl Units Cap) 1 cap PO Q7D [facility] Fluconazole (Diflucan) 200 mg PO DAILY [facility]; Protocol Last Admin: 04/02/19 15:13 Dose: 200 mg Fluoxetine HCl (Prozac) 30 mg PO DAILY [facility] Last Admin: 04/02/19 10:08 Dose: 30 mg Folic Acid (Folic Acid) 1 mg PO DAILY [facility] Last Admin: 04/02/19 10:08 Dose: 1 mg Home Med (Home Med) 1 unit PO DAILY [facility] Last Admin: 04/02/19 10:00 Dose: Not Given Sodium Chloride (Sodium Chloride 0.9%) 1,000 mls @ 125 mls/hr IV .Q8H [facility] Last Admin: 04/02/19 15:03 Dose: Not Given Ceftriaxone Sodium (Rocephin 1 Gram Ivpb) 1 gm in 100 mls @ 100 mls/hr IVPB DAILY [facility]; Protocol Stop: 04/07/19 10:35 Last Admin: 04/02/19 15:13 Dose: 100 mls/hr Levalbuterol HCl (Xopenex) 1.25 mg IH [id number] PRN PRN Reason: Shortness of Breath Last Admin: 04/02/19 12:57 Dose: 1.25 mg Levothyroxine Sodium (Synthroid) 100 mcg PO 0600 [facility] Last Admin: 04/02/19 06:41 Dose: 100 mcg Magnesium Oxide (Mag-Ox) 400 mg PO BID [facility] Last Admin: 04/02/19 17:31 Dose: 400 mg Multivitamins (Thera Tab) 1 tab PO DAILY [facility] Last Admin: 04/02/19 10:09 Dose: 1 tab Pantoprazole Sodium (Protonix Ec Tab) 40 mg PO 0600 [facility] Last Admin: 04/02/19 06:42 Dose: 40 mg Polysaccharide Iron Complex (Ferrex-150) 150 mg PO DAILY [facility] Last Admin: 04/02/19 10:09 Dose: 150 mg Potassium Chloride (Klor-Con 10) 10 meq PO BRK [facility] Last Admin: 04/02/19 10:09 Dose: 10 meq Potassium Phos/Sodium Phos (Neutra-Phos) 1 pkt PO BID [facility] Stop: 04/02/19 23:59 Last Admin: 04/02/19 17:31 Dose: 1 pkt Risperidone (Risperdal Tab) 2 mg PO Q8 [facility]; Protocol Last Admin: 04/02/19 21:23 Dose: 2 mg Spironolactone (Aldactone) 50 mg PO DAILY [facility] Last Admin: 04/02/19 10:07 Dose: 50 mg Zolpidem Tartrate (Ambien) 5 mg PO HS PRN; Protocol PRN Reason: Insomnia Last Admin: 04/02/19 21:23 Dose: 5 mg Physical Exam - Constitutional Appears: Non-toxic, No Acute Distress - Head Exam Head Exam: ATRAUMATIC, NORMAL INSPECTION, NORMOCEPHALIC - Eye Exam Eye Exam: EOMI, Normal appearance, PERRL - Neck Exam Neck exam: Positive for: Normal Inspection Additional comments: Ears - EAC / TM wnl AU Nose - mucus membranes dry / erythematous / DNS O/P - WNL Procedure: Flexible fiberoptic laryngoscopy done at bedside : Patients anatomy was not able to be visualized with a mirror therefore, a fiberoptic exam was performed. Nasopharynx appeared to be within normal limits Base of tongue appeared to be within normal limits Vallecula appeared to be within normal limits Epiglottis appeared to be within normal limits Pyriform sinus appeared to be within normal limits Aryepiglottic fold appeared to be within normal limits Arytenoids appeared to be within normal limits Interarytenoid area showed mild edema and erythema Vocal cords appeared to be within normal limits Vocal cord mobility appeared to be within normal limits False Vocal Cords appeared to be within normal limits Ventricle appeared to be within normal limits Patient tolerated the procedure well - Respiratory Exam Respiratory Exam: NORMAL BREATHING PATTERN - Neurological Exam Neurological exam: Alert, CN II-XII Intact, Oriented x3 - Psychiatric Exam Psychiatric exam: Normal Affect, Normal Mood - Skin Skin Exam: Dry, Intact, Normal Color Results - Vital Signs Recent Vital Signs: Last Vital Signs Temp 98.7 F 04/02/19 16:58 Pulse 81 04/02/19 17:48 Resp 18 04/02/19 16:58 BP 116/74 04/02/19 16:58 Pulse Ox 97 04/02/19 06:00 - Labs Result Diagrams: 04/02/19 08:04 04/02/19 08:03 Labs: Laboratory Results - last 24 hr 04/02/19 04/02/19 04/02/19 07:00 08:03 08:04 WBC 6.9 D RBC 3.58 Hgb 9.1 L Hct 28.4 L MCV 79.3 L MCH 25.4 MCHC 32.0 RDW 18.4 H Plt Count 392 MPV 9.0 Sodium 144 Potassium 4.5 Chloride 113 H Carbon Dioxide 23 Anion Gap 13 BUN 8 Creatinine 0.5 L Est GFR ( Amer) > 60 Est GFR (Non-Af Amer) > 60 Random Glucose 123 H Calcium 8.4 Cortisol AM Sample 11.9 Assessment & Plan (1) Chronic atrophic rhinitis Status: Acute Comment: Nasal saline each nostril TID (2) Anterior epistaxis Status: Acute Comment: as above (3) Pneumonia Status: Acute (4) Sepsis Status: Acute (5) Breast pain, right Status: Acute (6) Cellulitis Status: Acute (7) Dehydration Status: Acute (8) Dysphagia Status: Acute Comment: No current ENT pathology to account for dysphagia. management as per GI (9) Hypotension Status: Acute
[2019-04-03] MEDS: Pantoprazole 40 mg EC Tab PO SCH (05:11)
[2019-04-03] MEDS: Alum-Mag Hydrox-Simethicone Susp (30 mL) PO PRN (05:11)
[2019-04-03] MEDS: Sodium Chloride 0.9% 1,000 ML IV SCH ×2 (05:16→06:08)
[2019-04-03] MEDS: Levothyroxine 100 MCG TAB PO SCH (06:08)
--- NOTE | 2019-04-03 06:45 | CP.PCM.PN ---
Subjective - Date & Time of Evaluation Date of Evaluation: 04/03/19 Time of Evaluation: 06:20 - Subjective Subjective: Lying in bed,awake, alert. no distress,feels okay Reason for consultation and follow up: Cardiac evaluation of hypotension, sepsis, admitted for pneumonia, history of schizoaffective disorder hypothyroidism, and breast cancer Seen and examined by me and Dr. Lloyd Objective - Vital Signs/Intake and Output Vital Signs (last 24 hours): Temp Pulse Resp BP Pulse Ox 97.8 F 68 20 123/78 99 04/03/19 06:00 04/03/19 06:00 04/03/19 06:00 04/03/19 06:00 04/03/19 06:00 Intake and Output: 04/02/19 04/03/19 18:59 06:59 Intake Total 2330 420 Output Total 2100 Balance 2330 -1680 - Medications Medications: Current Medications Acetaminophen (Tylenol 325mg Tab) 650 mg PO Q6H PRN PRN Reason: Fever >100.4 F Last Admin: 03/31/19 06:51 Dose: 650 mg Acetylcysteine (Acetylcysteine 20%) 4 ml IH BIDRESP [facility] Last Admin: 04/02/19 20:35 Dose: 4 ml Al Hydrox/Mg Hydrox/Simethicone (Maalox Plus 30 Ml) 30 ml PO Q6 PRN PRN Reason: FOR EPIGASTRIC DISCOMFORT Last Admin: 04/03/19 05:11 Dose: 30 ml Arformoterol Tartrate (Brovana) 15 mcg IH [id number] [facility] Last Admin: 04/02/19 20:35 Dose: 15 mcg Aspirin (Ecotrin) 81 mg PO DAILY [facility] Last Admin: 04/02/19 10:09 Dose: 81 mg Benzocaine/Menthol (Cepacol Sore Throat) 1 devyn MT Q2H PRN PRN Reason: Sore Throat Last Admin: 04/02/19 17:37 Dose: 1 devyn Benztropine Mesylate (Cogentin) 0.5 mg PO Q8 [facility] Last Admin: 04/03/19 05:11 Dose: 0.5 mg Budesonide (Pulmicort Respules) 0.5 mg IH [id number] [facility] Last Admin: 04/02/19 20:35 Dose: 0.5 mg Calcium Carbonate (Caltrate) 600 mg PO DAILY [facility] Last Admin: 04/02/19 10:08 Dose: 600 mg Docusate Sodium (Colace) 100 mg PO DAILY [facility] Last Admin: 04/02/19 10:09 Dose: 100 mg Enoxaparin Sodium (Lovenox) 40 mg SC DAILY [facility]; Protocol Last Admin: 04/02/19 10:10 Dose: 40 mg Ergocalciferol (Drisdol 50,000 Intl Units Cap) 1 cap PO Q7D [facility] Fluconazole (Diflucan) 200 mg PO DAILY [facility]; Protocol Last Admin: 04/02/19 15:13 Dose: 200 mg Fluoxetine HCl (Prozac) 30 mg PO DAILY [facility] Last Admin: 04/02/19 10:08 Dose: 30 mg Folic Acid (Folic Acid) 1 mg PO DAILY [facility] Last Admin: 04/02/19 10:08 Dose: 1 mg Home Med (Home Med) 1 unit PO DAILY [facility] Last Admin: 04/02/19 10:00 Dose: Not Given Sodium Chloride (Sodium Chloride 0.9%) 1,000 mls @ 125 mls/hr IV .Q8H [facility] Last Admin: 04/03/19 06:08 Dose: Not Given Ceftriaxone Sodium (Rocephin 1 Gram Ivpb) 1 gm in 100 mls @ 100 mls/hr IVPB DAILY [facility]; Protocol Stop: 04/07/19 10:35 Last Admin: 04/02/19 15:13 Dose: 100 mls/hr Levalbuterol HCl (Xopenex) 1.25 mg IH [id number] PRN PRN Reason: Shortness of Breath Last Admin: 04/02/19 12:57 Dose: 1.25 mg Levothyroxine Sodium (Synthroid) 100 mcg PO 0600 [facility] Last Admin: 04/03/19 06:08 Dose: 100 mcg Magnesium Oxide (Mag-Ox) 400 mg PO BID [facility] Last Admin: 04/02/19 17:31 Dose: 400 mg Multivitamins (Thera Tab) 1 tab PO DAILY [facility] Last Admin: 04/02/19 10:09 Dose: 1 tab Pantoprazole Sodium (Protonix Ec Tab) 40 mg PO 0600 [facility] Last Admin: 04/03/19 05:11 Dose: 40 mg Polysaccharide Iron Complex (Ferrex-150) 150 mg PO DAILY [facility] Last Admin: 04/02/19 10:09 Dose: 150 mg Potassium Chloride (Klor-Con 10) 10 meq PO BRK [facility] Last Admin: 04/02/19 10:09 Dose: 10 meq Risperidone (Risperdal Tab) 2 mg PO Q8 [facility]; Protocol Last Admin: 04/03/19 05:12 Dose: 2 mg Spironolactone (Aldactone) 50 mg PO DAILY [facility] Last Admin: 04/02/19 10:07 Dose: 50 mg Zolpidem Tartrate (Ambien) 5 mg PO HS PRN; Protocol PRN Reason: Insomnia Last Admin: 04/02/19 21:23 Dose: 5 mg - Labs Labs: 04/02/19 08:04 04/02/19 08:03 PT 13.9 SECONDS (9.4-12.5) H 03/30/19 09:20 INR 1.23 03/30/19 09:20 APTT 27.0 Seconds (26.9-38.3) 03/30/19 09:20 - Constitutional Appears: Non-toxic, No Acute Distress - Head Exam Head Exam: NORMAL INSPECTION, NORMOCEPHALIC - Eye Exam Eye Exam: Normal appearance Pupil Exam: NORMAL ACCOMODATION - ENT Exam ENT Exam: Mucous Membranes Moist, Normal Exam - Neck Exam Neck Exam: Full ROM, Normal Inspection - Respiratory Exam Respiratory Exam: Decreased Breath Sounds, Clear to Ausculation Bilateral, NORMAL BREATHING PATTERN - Cardiovascular Exam Cardiovascular Exam: REGULAR RHYTHM, +S1, +S2 - GI/Abdominal Exam GI & Abdominal Exam: Soft, Normal Bowel Sounds - Extremities Exam Extremities Exam: Full ROM, Normal Capillary Refill - Neurological Exam Neurological Exam: Alert, Awake - Psychiatric Exam Psychiatric exam: Normal Affect, Normal Mood - Skin Skin Exam: Dry, Normal Color, Warm Assessment and Plan - Assessment and Plan (Free Text) Assessment: A 49 year old female who came in to the ER due to fever and dizziness. History of schizoaffective disorder ,depression,GERD, rheumatoid arthritis, hypothyroidism, and breast cancer (s/p right mastectomy and reconstruction) 20 years ago with chemo. Consult was called for hypotension. Sepsis due to pneumon ia. Dopamine started. CT scan showing a left lower lung consolidation consistent with pneumonia. ID on consult. On IV antibiotics. Echo done and showed LVEF 55- 60%, mild to moderate mitral regurgitation, mild tricuspid regurgitation, Trivial PI, RVSP 39mmHg.No evidence of vegetation or thrombus. Pulmonary consult. GI on consult for dysphagia. swallowing evaluation done and recommended regular to soft with thin liquids. Repeat chest X ray showed persistent left lower lobe infiltrate, new right lower lobe infiltrate. ID on consult. On IV antibiotics. Dopamine and IV Lasix and diuresed about 8 liters for non cardiac pulmonary edema. Dysphagia evaluated by EENT. She does not like to hospital f ood. Discontinue telemetry.Cardiac status stable. No further cardiac work up at this time. Plan: Clinically improved symptoms Cardiac status stable No distress, Afebrile Heart rate stable Blood pressure stable Continue current management Continue current medications No further cardiac work up at this time. ID on consult Continue IV antibiotics per ID GI on consult Discontinue telemetry Will follow up Plan and treatment discussed with Dr. Lloyd
[2019-04-03 07:20] LABS: BASO # 0.02 K/mm3 (0.0-2.0); BASO % 0.3 % (0.0-3.0); EOS # 0.2 (0.0-0.7); EOS % 2.2 % (1.5-5.0); HEMOGLOBIN 8.7 g/dL (12.0-16.0); LYMPH # 2.1 (1.2-3.4); LYMPH % 30.5 % (22.0-35.0); MEAN CELL VOLUME 78.6 fl (80.0-105.0); MEAN CORPUSCULAR HEMOGLOBIN 25.1 pg (25.0-35.0); MEAN PLATELET VOLUME 8.6 fl (7.0-11.0); MONO # 0.5 (0.1-0.6); MONO % 7.3 % (1.0-6.0); RBC 3.46 10^6/uL (3.5-6.1); RED CELL DISTRIBUTION WIDTH 18.5 % (11.5-14.5); WHITE BLOOD COUNT 6.9 10^3/uL (4.5-11.0)
[2019-04-03] MEDS: Budesonide 0.5 mg/2 ml Inhal Susp UD IH SCH ×2 (07:32→19:55)
[2019-04-03] MEDS: Acetylcysteine 20% Inhal Soln (4ml) IH SCH ×2 (07:32→19:55)
[2019-04-03] MEDS: Arformoterol 15 mcg/2 ml Inh Sol IH SCH ×2 (07:32→19:55)
[2019-04-03 07:38] LABS: ALB/GLOB RATIO 0.8 (1.1-1.8); ALT/SGPT 145 U/L (7-56); AST/SGOT 102 U/L (14-36); BLOOD UREA NITROGEN 8 mg/dL (7-21); CALCIUM 8.9 mg/dL (8.4-10.5); GFR NON-AFRICAN AMERICAN > 60
[2019-04-03] MEDS: Enoxaparin 40 mg Syringe SC SCH (10:46)
[2019-04-03] MEDS: Potassium Chloride 10 mEq ER Tab PO SCH (10:46)
[2019-04-03] MEDS: Iron Complex Polysacch 150mg Cap PO SCH (10:46)
[2019-04-03] MEDS: Magnesium Oxide 400 mg Tab UD PO SCH (10:47)
[2019-04-03] MEDS: cefTRIAXone 1 gm 1 GM/100 ML BAG IVPB SCH (10:47)
[2019-04-03] MEDS: Multivitamin Therapeutic Tab PO SCH (10:47)
--- NOTE | 2019-04-03 12:34 | PN ---
DATE: 04/03/2019 PULMONARY PROGRESS NOTE REFERRING PHYSICIAN: Igor Ca MD SUBJECTIVE: The patient is seen sitting up in bed, at bedside. Reports feeling dizzy today. No cough. Still has shortness of breath with exertion. No headache, rhinitis, chest pain, abdominal pain, nausea, vomiting, diarrhea, leg pain, or leg swelling reported. PHYSICAL EXAMINATION: VITAL SIGNS: Blood pressure 123/78, pulse 68, temperature 97. , oxygen saturation 99% on room air. GENERAL: No acute distress. HEENT: Moist mucous membranes. Crowded airway. NECK: Supple. No JVD. LUNGS: Decreased breath sounds. Rales, left lower lobe. CARDIOVASCULAR: S1 and S2. ABDOMEN: Soft, nontender. No distension. No organomegaly. EXTREMITIES: No bilateral lower extremity edema. NEUROLOGIC: Awake, alert, verbal. Following commands. MEDICATIONS: Reviewed. Tylenol 650 mg every 6 hours p.r.n. for fever greater than 100.4, Mucomyst 4 mL inhalation twice a day, Maalox 30 mL p.o. every 6 hours p.r.n., Brovana 15 mcg inhalation every 12 hours, aspirin 81 mg daily, Cepacol throat lozenges every 2 hours p.r.n., Cogentin 0.5 mg every 8 hours, Pulmicort 0.5 mg inhalation every 12 hours, calcium carbonate 600 mg daily, Rocephin 1 g daily, Colace 100 mg daily, Lovenox 40 mg subcutaneously daily, ergocalciferol 50,000 units every seven days, Diflucan 200 mg daily, Prozac 30 mg daily, folic acid 1 mg daily, Xopenex 1.25 mg inhalation every 6 hours p.r.n., Synthroid 100 mcg daily, magnesium oxide 400 mg twice a day, multivitamin one tablet daily, Protonix 40 mg daily, Ferrex 150 mg daily, potassium chloride 10 mEq at breakfast, Risperdal 2 mg every 8 hours, Aldactone 50 mg daily, Ambien 5 mg at bedtime p.r.n. LABORATORY DATA: Reviewed. WBC 6.9, RBC 3.56, hemoglobin 8.7, hematocrit 27.2, and platelets 367. Sodium 140, potassium 4.2, chloride 109, carbon dioxide 25, anion gap 10, BUN 8, creatinine 0.7, GFR greater than 60, random glucose 99, calcium 8.9, phosphorus 3.4, magnesium 1.8. Total bilirubin 0.2, AST 102, ALT 125, alkaline phosphatase 79, total protein 6.6, albumin 3, globulin 3.6, and albumin-globulin ratio 0.8. Blood cultures preliminary, no growth after [address] shows wedge shaped area dense consolidation in the left lung base with what appears represents additional areas of atelectasis peripherally about the area of consolidation, small to medium size left-sided effusion, small right-sided effusion, minor right basilar atelectasis, linear and irregular linear/curvilinear atelectatic changes present at both lung bases including middle lobe and lingular region; rounded, elliptical shaped, somewhat translucent opacity in the right lateral upper lobe bordering the pleural surface with ground-glass opacity seen in upper and lower lobes. IMPRESSION AND PLAN: Bacteremia, pneumonia, infiltrate seen on chest x-ray, chronic lung disease, schizoaffective disorder, depression. Pulmonary point of view, continue inhaled bronchodilators, head of bed elevated at 45 degrees, sleep apnea precaution, we do suspect sleep apnea syndrome in this patient. Continue antibiotics per Infectious Disease. Gastric prophylaxis, deep venous thrombosis prophylaxis. Cortisol level 11.9. We will order stat D-dimer to be done; if positive, the patient will need CPU to rule out pulmonary embolism. Continue aspiration precautions. Recommend the patient to have sleep study as outpatient. The patient was seen and examined with Dr. Alves. Discussed assessment and plan as described above. The patient was seen and examined by Ana Steven, nurse practitioner. Discussed assessment and plan as described above. Thank you for this consult. We will follow with you. Ana Steven APN Jasmine Alves MD
[2019-04-03] MEDS ORDERED: Iohexol 350 MG/100 ML VIAL ONE (14:26)
[2019-04-03] MEDS: Amoxicillin-Clav 875-125 mg Tab PO SCH ×2 (16:45→22:27)
--- NOTE | 2019-04-03 19:33 | PN ---
DATE: 04/03/2019 SUBJECTIVE: The patient was seen today. The patient presented in good mood. The patient reported that she had a good night's sleep. The patient reported that overall she is feeling better and stronger. The patient was admitted for pneumonia on the medical side, currently on antibiotics and this bid writer is following the patient because the patient has history of mental illness and severe psychosis in the past. Discussed with the patient's family. The patient's involved into the patient's care. Discussed with Dr. Ca today. As per Dr. Ca's professional opinion, the patient could resume ECT which would take place here in [place] this coming . Vital signs reviewed. Medications reviewed. Labs reviewed. Microbiology reviewed. MENTAL STATUS EXAM: The patient presented to be alert, oriented, pleasant, cooperative, socially appropriate. Fair eye contact. Mood described as, "I am okay, thank God." Affect more reactive, mood congruent. Thought process seems to be coherent and goal-directed. Thought content, the patient has residual symptoms of schizophrenia, but overall presented very well. Insight and judgment seems to be improving. Impulses are well controlled. IMPRESSION: As per history, the patient has schizophrenia, treatment resistant. The patient was on electroconvulsive therapy treatment. At present moment, the patient was admitted with pneumonia and possible sepsis. PLAN: Discussed with the patient's family as well as primary care team. The patient will be resuming ECT with a plan to decrease the dose of psychotropic medications. Waiting for medical clearance and official report from Dr. Ca. Dr. Olmedo will follow up on this patient over the weekend. Thank you very much for letting me participate in care of your patient. Should you have any questions give me a call back. Carolyn Ross MD
[2019-04-04] MEDS: Pantoprazole 40 mg EC Tab PO SCH (05:18)
[2019-04-04] MEDS: Acetylcysteine 20% Inhal Soln (4ml) IH SCH ×2 (07:51→19:30)
[2019-04-04] MEDS: Arformoterol 15 mcg/2 ml Inh Sol IH SCH ×2 (07:51→19:30)
[2019-04-04] MEDS: Budesonide 0.5 mg/2 ml Inhal Susp UD IH SCH ×2 (07:51→19:30)
[2019-04-04] MEDS: Potassium Chloride 10 mEq ER Tab PO SCH (08:32)
[2019-04-04] MEDS: Amoxicillin-Clav 875-125 mg Tab PO SCH (09:35)
[2019-04-04] MEDS: Enoxaparin 40 mg Syringe SC SCH (09:35)
[2019-04-04] MEDS: Multivitamin Therapeutic Tab PO SCH (09:35)
[2019-04-04] MEDS: Iron Complex Polysacch 150mg Cap PO SCH (09:36)
[2019-04-04] MEDS: Magnesium Oxide 400 mg Tab UD PO SCH ×2 (09:36→17:54)
[2019-04-04] MEDS: VITAMIN A 8000 UNIT PO SCH (09:36)
[2019-04-04 09:44] LABS: ALB/GLOB RATIO 0.9 (1.1-1.8); ALBUMIN 3.5 g/dL (3.0-4.8); BILIRUBIN,DIRECT 0.2 mg/dL (0.0-0.4)
[2019-04-04 10:05] LABS: HEMOGLOBIN 9.9 g/dL (12.0-16.0); MEAN CORPUSCULAR HEMOGLOBIN 25.4 pg (25.0-35.0); MEAN CORPUSCULAR HGB CONC 32.1 g/dl (31.0-37.0); MEAN PLATELET VOLUME 8.7 fl (7.0-11.0); RBC 3.9 10^6/uL (3.5-6.1); RED CELL DISTRIBUTION WIDTH 18.7 % (11.5-14.5); WHITE BLOOD COUNT 7.6 10^3/uL (4.5-11.0)
--- NOTE | 2019-04-04 10:10 | PN ---
DATE: 04/02/2019 SUBJECTIVE: The patient is comfortable. No distress. Afebrile. No nausea, no vomiting. Still on IV antibiotics. PHYSICAL EXAMINATION: VITAL SIGNS: Temperature is 99, heart rate 83, blood pressure 122/77, respirations 20, sat 96%. HEAD AND NECK: Normal. No JVD. No thyromegaly. CHEST: Clear. There are diminished breath sounds on the right. Left, there are a few basal crepitations. CARDIAC: First sound and second sound normal. No murmur, rub, or gallop. ABDOMEN: Soft, obese, nontender. EXTREMITIES: Right upper extremity lymphedema. NEUROLOGIC: Normal. LABORATORY STUDIES: On 04/02/2019; white count 6.9, hemoglobin 9.1, hematocrit 28.4, platelets 392. Sodium 144, potassium 4.5, chloride 113, bicarb 23, BUN 8, creatinine 0.5, blood sugar 123. The patient also had a CT which is consistent with left lower lobe consolidation and right side atelectasis, also multiple degenerative spine, also there is small right-sided effusion, basilar atelectasis, and possible developing pneumonia on the right upper lobe or atelectasis. IMPRESSION AND PLAN: 1. Community-acquired pneumonia in immunocompromised patient. We will continue current therapy. Currently, she is on Maxipime IV, continue that. 2. History of esophageal narrowing, able to tolerate liquids. Continue current therapy. Patient seen by ENT, nothing going on. 3. History of severe depression. Continue Prozac 30 mg plus other medications. 4. History of rheumatoid arthritis, stable, off immunosuppressive medication this time. 5. Hypothyroidism history of breast cancer. Plan to continue current therapy. The patient seems doing very well. Igor Ca MD
--- NOTE | 2019-04-04 10:16 | PN ---
DATE: 04/03/2019 SUBJECTIVE: The patient is stable, comfortable, no distress. She feels better, otherwise stable. She is afebrile, and she is doing well. PHYSICAL EXAMINATION: VITAL SIGNS: On 04/03; temperature 97.8, blood pressure 123/78, respirations 20, sat 99% on room air. HEAD AND NECK: Normal. No JVD. No thyromegaly. CHEST: Clear bilaterally. CARDIAC: First sound and second sound normal. ABDOMEN: Soft, nontender. EXTREMITIES: No edema. NEUROLOGIC: Normal. LABORATORY STUDIES: Sodium 140, potassium 4.2, chloride 109, bicarb 25, BUN 8, creatinine 0.7. Liver enzymes slightly elevated; AST of 102, ALT of 145, alk phos is normal. CBC showed white count of 6.9, hemoglobin 8.7, hematocrit 27.2, platelets 367. IMPRESSION AND PLAN: 1. Community-acquired pneumonia. The patient's IV antibiotics will be switched to p.o. Augmentin. She is doing well. 2. Abnormal liver function test. Low hemoglobin or repeat labs in the morning and will follow up on that before we discharge her home in the morning. 3. The patient has severe depression. Continue Risperdal. Continue all other psych meds. She will need an ECT as outpatient. 4. History of esophageal narrowing related to radiation therapy received on breast cancer therapy. She seems stable now, tolerating diet pureed diet and soft diet. We will continue current therapy. 5. History of rheumatoid arthritis. Will resume her meds next week. Continue current therapy. Follow up clinically. Igor Ca MD
--- NOTE | 2019-04-04 10:48 | PN ---
DATE: 04/04/2019 PULMONARY PROGRESS NOTE REFERRING PHYSICIAN: Igor Ca MD SUBJECTIVE: The patient is seen lying in bed, no acute distress. No overnight events reported. Reports still having some shortness of breath with exertion. Nursing staff reports unable to get midline or PICC line for the patient to have CTA done yesterday, however, was able to obtain IV access in her lower extremity, but unable to use that IV access for CTA which was ordered as to evaluate for pulmonary embolism as D-dimer was elevated in this patient. No headache, rhinitis, chest pain, abdominal pain, nausea, vomiting, diarrhea, leg pain or leg swelling reported. PHYSICAL EXAMINATION: GENERAL: No acute distress. VITAL SIGNS: Blood pressure 112/77, pulse 87, temperature 98.4, oxygen saturation 95 on room air. HEENT: Moist mucous membranes. Crowded airway. NECK: Supple. No JVD. LUNGS: Decreased breath sounds, scattered rhonchi. CARDIOVASCULAR: S1 and S2. ABDOMEN: Soft, nontender. No distention, no organomegaly. EXTREMITIES: No bilateral lower extremity edema. NEUROLOGIC: Awake, alert, verbal, following commands. LABORATORY DATA: Reviewed. D-dimer 1991, total bilirubin 0.3, direct bilirubin 0.5, AST 95, ALT 174, alkaline phosphatase 92, total protein 7.4, albumin 3.5, globulin 3.9, albumin globulin ratio 0.9. Blood cultures preliminary no growth after 48 hours. MEDICATIONS: Reviewed. Tylenol 650 every 6 hours p.r.n. fever greater than 100.4, Mucomyst 4 mL inhalation twice a day, Maalox 30 mL every 6 hours p.r.n., Augmentin one tab every 12 hours, Brovana 15 mcg every 12 hours, aspirin 81 mg daily, Cepacol throat lozenge every 2 hours p.r.n., Cogentin 0.5 mg every 8 hours, Pulmicort 0.5 mg every 12 hours, calcium carbonate 600 mg daily, Colace 100 mg daily, Lovenox 40 mg subcu daily, ergocalciferol 50,000 units every 7 days, Diflucan 200 mg daily, Prozac 30 mg daily, folic acid 1 mg daily, Xopenex 1.25 mg inhalation every 6 hours p.r.n., Synthroid 100 mcg daily, magnesium oxide 400 mg twice a day, multivitamin one tab daily, Protonix 40 mg daily, Ferrex 150 mg daily, potassium chloride 10 mEq breakfast, Risperdal 2 mg every 8 hours, spironolactone 50 mg daily, Ambien 5 mg h.s. p.r.n. IMPRESSION AND PLAN: Bacteremia, pneumonia, infiltrates seen on CAT scan with atelectasis, chronic lung disease, schizoaffective disorder, depression. Pulmonary point of view, continue inhaled bronchodilators, head of bed elevated 45 degrees, sleep apnea precautions to suspect sleep apnea syndrome in this patient. Antibiotics per Infectious Disease, gastric prophylaxis, deep venous thrombosis prophylaxis. We will order ventilation/perfusion scan of the lungs to be done which may be suboptimal due to infiltrates seen on CAT scan, but it is necessary as we are not able to get the proper IV access for CTA to be done. We will follow up once V/Q scan results are available. Aspiration precautions, continue GI followup. Recommend the patient have sleep study as outpatient. This patient was seen and examined with Dr. Alves. Discussed assessment and plan as described above. This patient was seen and examined by Ana Steven, nurse practitioner. Discussed assessment and plan as described above. Thank you for this consult. We will follow with you. Ana Steven APN Jasmine Alves MD
--- NOTE | 2019-04-04 15:13 | NM ---
Date of service: 04/04/2019 COMPARISON: CT chest dated 04/02/2019; chest radiograph dated 04/01/2019 TECHNIQUE: 31.3 mCi technetium 99-m DTPA aerosol. 6.0 mCI technetium 99-m MAA administered intravenously. FINDINGS: VENTILATION COMPONENT: Lower lobe defect compatible with known atelectasis/consolidation PERFUSION COMPONENT: Normal. IMPRESSION: Lowprobability ventilation perfusion scan for pulmonary embolism.
--- NOTE | 2019-04-04 16:01 | PN ---
DATE: 04/04/2019 SUBJECTIVE: The patient seen earlier today in room 368 bed 1. No fevers and chills. PHYSICAL EXAMINATION: VITAL SIGNS: Temperature is 98, blood pressure is 112/70, respiratory rate of 18. HEENT: Unremarkable. NECK: Supple. LUNGS: Have decreased breath sounds. HEART: Normal S1, S2. ABDOMEN: Soft, nontender. LABORATORY DATA: Laboratory examination reveals the patient's white count of 7.6, hemoglobin of 9, platelets of 442, BUN of 8, creatinine of 0.5. Procalcitonin is noted. Urinalysis is noted. Serology is reviewed. Microbiology is noted. The group A strep in blood. Dr. aC's note is reviewed. Currently, the patient is on p.o. Augmentin. The patient had a CAT scan of the chest. The patient also had an echo, which was negative. ASSESSMENT AND PLAN: This is a 49-year-old female with past medical history significant for obesity, body mass index of 31, admitted with severe sepsis, group A Streptococcus bacteremia, left lower lobe healthcare-associated pneumonia in a patient with history of hypothyroidism, breast cancer, received chemotherapy, radiation, depression, right arm lymphedema, schizoaffective disorder, no intravascular devices, and the patient's QTC of 464. Currently on p.o. Augmentin 875 p.o. b.i.d. x10 days, only one bottle positive, echo is negative. The patient does not have meet Zeng's criteria for endocarditis. Scotty James MD
--- NOTE | 2019-04-04 20:57 | CON ---
DATE: 04/04/2019 HISTORY OF PRESENT ILLNESS: The patient is a 49-year-old [place] female with a history of schizoaffective disorder, multiple psychiatric hospitalizations, multiple failed medication trials for her psychosis. However, ECT was extremely valuable in stabilizing the patient on the unit back in 10/2018, who is being treated on the medical floor due to pneumonia and has been relatively psychiatrically stable based on Dr. Ross's followups with the patient on the medical floor. I meet with the patient in the outpatient unit at the [facility] on a regular basis and the patient continues to be stable based on our interaction today. She is well oriented to current circumstances, month, year, location and medications that she is being prescribed. She does not appear to be in hallucination. Denies any perceptual disturbance. Delusions were not elicited. Her behavior has been in control. She has not been demonstrating bizarre church dissimulations or behaviors which she has in the past (please note that the patient has been noted tried to drink her own urine or eat her feces). She is pleasant, wanting to improve and she appears genuinely happy to see this provider and appears genuine when she indicates that she will follow up with this provider and continue with ECT. Her insight and judgment are considered to be fair at this time. IMPRESSION: The patient has schizoaffective disorder, status post electroconvulsive therapy treatment, both inpatient and outpatient. Psychiatric concerns appear to be stable. MEDICATIONS: Include Prozac 30 mg daily, Ambien 5 mg at bedtime, Risperdal 2 mg every 8 hours and Cogentin 0.5 every 8 hours. Labs and vitals were reviewed. RECOMMENDATIONS: We will continue with current medications as prescribed. They are provided to keep the patient is stable; however, this provider agrees with Dr. Ross she does need maintenance ECT as this was profoundly beneficial for her presentation when she was hospitalized for a lengthy period back in 10/2018. I agree with Dr. Ross Risperdal and Cogentin can probably be tapered as the patient becomes consistently compliant with ECT on an outpatient basis, however, this provider will keep her medications at her current doses at this time without any change until an ECT is implemented again in her treatment regimen. Psychiatry will follow up with the patient every other day. She appears stable at this time. Obviously, we will re-consult earlier if there are any changes to her presentation. Next followup will be on 04/06/2019. Ese Olmedo MD
[2019-04-05] MEDS: Levothyroxine 100 MCG TAB PO SCH (06:10)
[2019-04-05] MEDS: Pantoprazole 40 mg EC Tab PO SCH (06:10)
[2019-04-05] MEDS: Budesonide 0.5 mg/2 ml Inhal Susp UD IH SCH (07:48)
[2019-04-05] MEDS: Arformoterol 15 mcg/2 ml Inh Sol IH SCH (07:48)
[2019-04-05] MEDS: Acetylcysteine 20% Inhal Soln (4ml) IH SCH (07:48)
[2019-04-05 08:24] VITALS: BP 106/74; PULSE 76; RESP 20; TEMP 98.6; O2SAT 92
[2019-04-05] MEDS ORDERED: Amoxicillin-Clav 875-125 mg Tab PO SCH (10:00)
[2019-04-05] MEDS: Potassium Chloride 10 mEq ER Tab PO SCH (10:12)
[2019-04-05] MEDS: Enoxaparin 40 mg Syringe SC SCH (10:12)
[2019-04-05] MEDS: Multivitamin Therapeutic Tab PO SCH (10:12)
[2019-04-05] MEDS: Iron Complex Polysacch 150mg Cap PO SCH (10:13)
[2019-04-05] MEDS: Magnesium Oxide 400 mg Tab UD PO SCH (10:13)
[2019-04-05] MEDS: VITAMIN A 8000 UNIT PO SCH (10:14)
--- NOTE | 2019-04-05 13:31 | PN ---
DATE: 04/05/2019 SUBJECTIVE: The patient is seen in bed. No acute distress. She is comfortable. No fevers. No chills. PHYSICAL EXAMINATION: VITAL SIGNS: On exam, temperature is 98, blood pressure is 106/70, respiratory rate 18. HEENT: Unremarkable. NECK: Supple. LUNGS: Decreased breath sounds. HEART: Normal S1 and S2. ABDOMEN: Soft. LABORATORY DATA: Laboratory examination reveals a white count of 7.6, hemoglobin 9, chemistries are noted. LFTs are reviewed. Urinalysis is noted. HIV is negative. The patient's blood culture is positive for group A Streptococcus pyogenes, currently on p.o. Augmentin. Lower extremity ultrasound is pending. Had a VQ scan, which showed low probability of PE. ASSESSMENT AND PLAN: A 49-year-old female who was seen in 368 with past medical history of obesity, BMI of 31, admitted with severe sepsis, group A Strep bacteremia one bottle with left lower lobe healthcare-associated pneumonia in a patient with hypothyroidism, breast cancer who had received chemotherapy and radiation. The patient with depression, right arm lymphedema, schizoaffective disorder. No intravascular devices. Currently on p.o. Augmentin x3 days. He had an echo, which is negative. Does not need Zeng's criteria for endocarditis. Scotty James MD
--- NOTE | 2019-04-05 22:42 | US ---
HISTORY: Leg pain and swelling. Evaluate for DVT PHYSICIAN(S): Osmel Mcneal MD. TECHNIQUE: Duplex sonography and color-flow Doppler with graded compression were used to evaluate the deep venous systems of both lower extremities. FINDINGS: The visualized deep venous systems of both lower extremities are sonographically normal and compressible. Normal wave forms and augmentation are seen. There is no sonographic evidence for deep venous thrombosis in the visualized segments of both lower extremities. IMPRESSION: No sonographic evidence for deep venous thrombosis in the visualized segments of both lower extremities.
--- NOTE | 2019-04-06 02:03 | DS ---
HISTORY OF PRESENT ILLNESS: The patient came in with left-sided pain, found to have left lower lobe pneumonia on CT scan. The patient was treated with IV antibiotic, initially Maxipime and doxycycline, she did well, she improved over several days and switched to p.o. Augmentin. The patient had also V/Q scan, which was negative. Venous Doppler, which was negative. Seen by GI consult, Dr. Bob. Pureed and soft diet recommended. The patient also seen by ENT, which was negative. Pulmonary consult, Dr. Alves seen the patient and ID consult, Dr. James. The patient was noted to have some abnormal liver function test, could be medication related. We will follow up as outpatient. Seen by psychiatrist, Dr. Leon. The patient was rescheduled for ECT as outpatient. On discharge, she is stable with and daughter around. The patient seems comfortable, mentally stable. PHYSICAL EXAMINATION: VITAL SIGNS: Temperature 98.6, heart rate 76, blood pressure 106/74, respirations 20, and saturation 92% on room air. HEAD AND NECK: Normal. No JVD. No thyromegaly. CHEST: Clear bilaterally. CARDIAC: First sound and second sound normal. No murmur, rub, or gallop. ABDOMEN: Soft and nontender. EXTREMITIES: No edema. NEUROLOGIC: Normal. LABORATORY DATA: The patient had chemistry, Chem-23 which was within normal except liver function test. AST was 95. ALT 174. Alk phos was normal. Last CBC; white count 7.6, hemoglobin 9.9, hematocrit 30.8, and platelet 442. DISCHARGE DIAGNOSES: 1. Left lower lobe community-acquired pneumonia. 2. Atelectasis. 3. Depression. 4. Hypothyroidism. 5. Dysphagia. PLAN: To discharge the patient continue Augmentin for 7 days in total and follow up in the office within a week. Also, repeat liver function test in the next 3-4 days. Resume all her meds including Protonix, Risperdal, levothyroxine, and also including Aldactone and resume her diet. Igor Ca MD [facility] # [id number]
--- NOTE | 2019-04-06 04:01 | PN ---
DATE: 04/04/2019 SUBJECTIVE: The patient is comfortable. She is on p.o. Augmentin. She was doing fine but complained of severe left-sided pain. Her liver enzymes went up. D-dimer was elevated and VQ scan was done, result is pending. The patient was kept for observation one more day until we get all these results and ultrasound of lower extremity results. The patient is clinically stable. PHYSICAL EXAMINATION: VITAL SIGNS: On 04/04/2019; temperature 98, heart rate 86, blood pressure 103/70, saturation 95% on room air, and respirations 18. HEAD AND NECK: Normal. No JVD. No thyromegaly. CHEST: Clear bilateral. Diminished breath sounds on the left. CARDIAC: First sound and second sounds are normal. No murmur, rub, or gallop. ABDOMEN: Soft and nontender. EXTREMITIES: No edema. NEUROLOGIC: Normal. LABORATORY DATA: White count 7.6, hemoglobin 9.9, hematocrit 30.8, and platelet is 442. Chemistry; sodium 140, potassium 4.2, chloride 102, bicarbonate 25, BUN 8, creatinine 0.7. Liver function test is normal. AST 95. Her ALT 174, alkaline phosphatase is 92. IMPRESSION AND PLAN: 1. Left lower lobe pneumonia, community acquired pneumonia. Continue oral Augmentin. Discussed with Dr. Alves about liver enzymes and recommend Augmentin. Follow up liver function test as outpatient. 2. The patient has D-dimer elevation. VQ scan will be done and venous Doppler of both lower extremity. Results still pending. 3. Dysphagia. The patient is tolerating diet well. 4. Acid reflux. Continue Protonix. 5. Depression, hypothyroidism. The patient will be scheduled for EST plus continue Risperdal 2 mg t.i.d. and Synthroid 100 mcg once a day. The patient also has a history of breast cancer, so she will follow up with oncologist as outpatient. Igor Ca MD
--- NOTE | 2019-04-06 08:37 | PN ---
DATE: 04/05/2019 PULMONARY PROGRESS NOTE REFERRING PHYSICIAN: Igor Ca MD SUBJECTIVE: The patient seen lying in bed, no acute distress. No overnight events reported. No headache, rhinitis, cough, shortness of breath, chest pain, abdominal pain, nausea, vomiting, diarrhea, leg pain or leg swelling reported. PHYSICAL EXAMINATION GENERAL: No acute distress. VITAL SIGNS: Blood pressure 106/74, pulse 76, temperature 98.6, oxygen saturation 92%. HEENT: Moist mucus membranes. Crowded airway. NECK: Supple. No JVD. RESPIRATORY: Few scattered rhonchi. CARDIOVASCULAR: S1 and S2. ABDOMEN: Soft, nontender. No distention. No organomegaly. EXTREMITIES: No bilateral lower extremity edema. NEUROLOGIC: Awake, alert, verbal, following commands. MEDICATIONS: Reviewed. Tylenol 650 every 6 hours p.r.n. fever greater than 104, Mucomyst 4 mL inhalation twice a day, Maalox 30 mL p.o. every 6 hours p.r.n., Augmentin 1 tab every 12 hours, Brovana 15 mcg every 12 hours, aspirin 81 mg daily, Cepacol throat lozenges every 2 hours p.r.n., Cogentin 0.5 mg every 8 hours, Pulmicort 0.5 mg inhalation every 12 hours, calcium carbonate 600 mg daily, Colace 100 mg daily, Lovenox 40 mg subcutaneously daily, ergocalciferol 50,000 units weekly, Diflucan 200 mg daily, Prozac 30 mg daily, folic acid 1 mg daily, Motrin 600 mg every 8 hours p.r.n., Xopenex 1.25 mg inhalation every 6 hours p.r.n., Synthroid 100 mcg daily, magnesium oxide 400 mg twice a day, multivitamin one tab daily, Protonix 40 mg daily, Ferrex 150 daily, potassium chloride 10 mEq breakfast, Risperdal 2 mg every 8 hours, spironolactone 50 mg daily, Ambien 5 mg at bedtime, p.r.n. LABORATORY DATA: Reviewed. Blood cultures preliminary no growth for four days. Ventilation/perfusion scan shows low probability for pulmonary embolism. IMPRESSION AND PLAN: Admitted with sepsis; group A Streptococcus bacteremia; pneumonia; history of breast cancer, hypothyroidism, the patient had chemotherapy and radiation in the past; severe chronic lung disease; schizoaffective disorder; and depression. Pulmonary point of view, continue inhaled bronchodilators, head of bed elevated at 45 degrees, sleep apnea precaution, we do suspect sleep apnea syndrome in this patient, antibiotics per Infectious Disease, deep venous thrombosis prophylaxis, gastric prophylaxis. The patient will need follow up chest x-ray as outpatient to assess stability and infiltrates, aspiration precaution. Recommend the patient to have sleep study as outpatient to evaluate sleep apnea syndrome. This patient was seen and examined with Dr. Alves. Discussed assessment and plan as described above. This patient was seen and examined with Maurizio Perez, nurse practitioner. Discussed assessment and plan as described above. Thank you for this consult and we will follow with you. Ana Steven APN Jasmine Alves MD [facility]
== END 2019-04-05 15:40 | disposition home or self-care (01) | DRG 584 ==
LOC: ED 08:40 → ERH 12:40 → 2RNO 14:02 → OBSVTOIN 03-31 18:03 → 3RNO 04-03 09:46
PROVIDERS: ADMIT Internal Medicine; ATTEND Internal Medicine
PROC: 3E0F7GC Introduction of Other Therapeutic Substance into Respiratory Tract, Via Natural or Artificial Opening (ICD-10-PCS; principal; 2019-03-31)
DX: A40.0 Sepsis due to streptococcus, group A (principal); J18.1 Lobar pneumonia, unspecified organism; J98.11 Atelectasis; F25.9 Schizoaffective disorder, unspecified; R65.20 Severe sepsis without septic shock; I25.10 Atherosclerotic heart disease of native coronary artery without angina pectoris; I10 Essential (primary) hypertension; E03.9 Hypothyroidism, unspecified; M06.9 Rheumatoid arthritis, unspecified; R13.12 Dysphagia, oropharyngeal phase; K21.9 Gastro-esophageal reflux disease without esophagitis; F31.9 Bipolar disorder, unspecified; K64.8 Other hemorrhoids; K29.70 Gastritis, unspecified, without bleeding; I89.0 Lymphedema, not elsewhere classified; Y95 Nosocomial condition; Z91.19 Patient's noncompliance with other medical treatment and regimen; Z86.718 Personal history of other venous thrombosis and embolism; E66.9 Obesity, unspecified; Z68.31 Body mass index [BMI] 31.0-31.9, adult; Z85.3 Personal history of malignant neoplasm of breast; Z90.11 Acquired absence of right breast and nipple; Z92.21 Personal history of antineoplastic chemotherapy; Z92.3 Personal history of irradiation; Z79.82 Long term (current) use of aspirin; Z79.890 Hormone replacement therapy; Z88.1 Allergy status to other antibiotic agents